=== PATIENT | female | born 1945 | race Caucasian/White ===

== ENCOUNTER 2016-11-24 07:36 | Emergency (ER) | payer MEDICARE, OTHER ==
[~2016-11-24] VITALS: Ht 170.2 cm; Wt 105.7 kg
[~2016-11-24 07:36] MED LIST: BUPR150T7; BUPR150T9 PO; DOXY100C2 PO; FLUT1AER IH; FLUT1DIS26 IH; HYDR-3720 PO; HYDR-3730 PO; LISI-556; LISI5TAB PO; MONT10TA21 PO; OMEP20CA12; OMEP20CA12 PO; OMEP20CA6 PO; PRD20T PO; TIOT18CA IH; UMEC62.5 IH
[2016-11-24] MEDS ORDERED: FAMOTIDINE 20MG/2ML IV (PEPCID) IV STA (07:54)
[2016-11-24] MEDS ORDERED: NS IV 1000 ML 1,000 ML IV STA (07:54)
[2016-11-24 08:00] LABS: BASOPHILS # (AUTO) 0.1 10^3/uL (0.0-0.1); BASOPHILS % (AUTO) 1 % (0-10); EOSINOPHILS # (AUTO) 0.1 10^3/uL (0.0-0.3); EOSINOPHILS % (AUTO) 1 % (0-10); LYMPHOCYTES # (AUTO) 1.8 X 10^3 (1.0-4.0); LYMPHOCYTES % (AUTO) 14 % (12-44); MEAN CORPUSCULAR HEMOGLOBIN 27 PG (25-34); MEAN CORPUSCULAR HGB CONC 32 G/DL (32-36); MEAN CORPUSCULAR VOLUME 83 FL (80-99); MEAN PLATELET VOLUME 10.3 FL (7.4-10.4); MONOCYTES # (AUTO) 0.8 X 10^3 (0.0-1.0); MONOCYTES % (AUTO) 6 % (0-12); NEUTROPHILS % (AUTO) 79 % (42-75); PLATELET COUNT 410 10^3/uL (130-400); RED BLOOD COUNT 5.37 10^6/uL (4.35-5.85); RED CELL DISTRIBUTION WIDTH 14.9 % (10.0-14.5); WHITE BLOOD COUNT 12.7 10^3/uL (4.3-11.0)
[2016-11-24] MEDS ORDERED: ONDANSETRON 4 MG/2 ML (SDV) Z0FRAN IVP ONE (08:00)
[2016-11-24 08:05] LABS: KETONES,URINE NEGATIVE (NEGATIVE); LEUKOCYTE ESTERASE ,URINE 1+ (NEGATIVE); NITRITE,URINE NEGATIVE (NEGATIVE); PH,URINE 6 (5-9); PROTEIN,URINE 2+ (NEGATIVE); UROBILINOGEN,URINE 4 MG/DL (NORMAL)
--- NOTE | 2016-11-24 08:11 | ED GI ---
General Chief Complaint: Abdominal/GI Problems Stated Complaint: VOMITING Source of Information: Patient Exam Limitations: No Limitations History of Present Illness Time Seen By Provider: 07:47 Initial Comments Here with report of nausea and vomiting overnight multiple times. Complains of abdominal cramping prior to vomiting but that resolves. Denies diarrhea or dysuria. Denies blood in her vomit. Denies fever or chills. Timing/Duration: 12 Hours Severity/Quality: Moderate, Cramping Location: Generalized Abdomen Radiation: No Radiation Activities at Onset: None Modifying Factors: Worsens With Eating, Improves With Vomiting Associated Symptoms: No Back Pain, No Chest Pain, No Fever/Chills, Nausea/ VomitingNo Shortness of Air, No Weakness Allergies and Home Medications Allergies Coded Allergies: Penicillins (Unverified Allergy, Unknown, 10/20/16) Home Medications Bupropion HCl 150 Mg Tablet.er 150 MG PO DAILY (Reported) Fluticasone/Vilanterol 1 Each Blst.w.dev 1 PUFF IH DAILY (Reported) Hydrocodone/Acetaminophen 1 Each Tablet #35 1-2 EACH PO Q6H Prescribed by: STEVEN FALCON on 11/05/16 1508 Lisinopril 5 Mg Tablet 5 MG PO DAILY (Reported) Montelukast Sodium 10 Mg Tablet 10 MG PO DAILY (Reported) Omeprazole 20 Mg Capsule.dr 20 MG PO DAILY (Reported) Umeclidinium Farrell 62.5 Mcg Blst.w.dev 1 PUFF IH DAILY (Reported) Review of Systems Constitutional: see HPI EENTM: No Symptoms Reported Respiratory: No Symptoms Reported Cardiovascular: No Symptoms Reported Gastrointestinal: See HPI Abdominal PainDenies Diarrhea, NauseaDenies Rectal Bleeding, Vomiting Genitourinary: No Symptoms Reported Musculoskeletal: no symptoms reported All Other Systems Reviewed Negative Unless Noted: Yes Past Unncfyt-Lulsmq-Tcvxcr Hx Patient Social History Alcohol Use: Denies Use Recreational Drug Use: No Smoking Status: Never a Smoker Type Used: Cigarettes Recent Foreign Travel: No Contact w/Someone Who Travel: No Recent Hopitalizations: No Physical Abuse Screen: No Sexual Abuse: No Immunizations Up To Date Date of Influenza Vaccine: Oct 12, 2016 Seasonal Allergies Seasonal Allergies: Yes Surgeries HX Surgeries: Yes (c/s x3, ) Surgeries: Section, Gallbladder Respiratory Hx Respiratory Disorders: Yes (wears oxygen at night) Respiratory Disorders: Emphysema Cardiovascular Hx Cardiac Disorders: No Neurological Hx Neurological Disorders: No Reproductive System Hx Reproductive Disorders: No Sexually Transmitted Disease: No HIV/AIDS: No Genitourinary Hx Genitourinary Disorders: No Gastrointestinal Hx Gastrointestinal Disorders: Yes Gastrointestinal Disorders: Gastroesophageal Reflux, Gall Bladder Disease Musculoskeletal Hx Musculoskeletal Disorders: Yes (HX FX BACK) Musculoskeletal Disorders: Chronic Back Pain Endocrine Hx Endocrine Disorders: No HEENT HX ENT Disorders: Yes (DENTURES) Loss of Vision: Denies Hearing Impairment: Denies Cancer Hx Cancer: No Psychosocial Hx Psychiatric Problems: No Integumentary HX Skin/Integumentary Disorder: No Blood Transfusions Hx Blood Disorders: No Adverse Reaction to a Blood Tr: No (N/A) Reviewed Nursing Assessment Reviewed/Agree w Nursing PMH: Yes Family Medical History Significant Family History: No Pertinent Family Hx Physical Exam Vital Signs VS - Last 72 Hours, by Label 11/24/16 07:39 Temp 96.2 Pulse 100 Resp 18 B/P 156/94 Pulse Ox 94 O2 Delivery Nasal Cannula O2 Flow Rate 2 Capillary Refill : General Appearance: WD/WN no apparent distress HEENT: PERRL/EOMI pharynx normal Neck: full range of motion supple Respiratory: lungs clear normal breath sounds Cardiovascular: no murmur tachycardia Peripheral Pulses: 2+ Dorsalis Pedis (R), 2+ Left Dors-Pedis (L), 2+ Radial Pulses (R), 2+ Radial Pulses (L) Gastrointestinal: non tender soft Extremities: non-tender normal inspection Back: normal inspection no CVA tenderness no vertebral tenderness Neurologic/Psychiatric: alert oriented x 3 Skin: normal color warm/dry Progress/Results/Core Measures Results/Orders Lab Results Laboratory Tests Test 11/24/16 07:52 11/24/16 07:59 Range/Units Alanine Aminotransferase (ALT/SGPT) 15 0-55 U/L Albumin 4.2 3.2-4.5 G/DL Alkaline Phosphatase 156 H 40-136 U/L Anion Gap 11 5-14 MMOL/L Aspartate Amino Transf (AST/SGOT) 19 5-34 U/L BUN/Creatinine Ratio 16 Basophils # (Auto) 0.1 0.0-0.1 10^3/uL Basophils (%) (Auto) 1 0-10 % Blood Urea Nitrogen 18 7-18 MG/DL Calcium Level 10.0 8.5-10.1 MG/DL Carbon Dioxide Level 28 21-32 MMOL/L Chloride Level 102 98-107 MMOL/L Creatinine 1.11 0.60-1.30 MG/DL Eosinophils # (Auto) 0.1 0.0-0.3 10^3/uL Eosinophils (%) (Auto) 1 0-10 % Estimat Glomerular Filtration Rate 49 Glucose Level 144 H 70-105 MG/DL Hematocrit 45 35-52 % Hemoglobin 14.3 11.5-16.0 G/DL Lymphocytes # (Auto) 1.8 1.0-4.0 X 10^3 Lymphocytes (%) (Auto) 14 12-44 % Magnesium Level 2.3 1.8-2.4 MG/DL Mean Corpuscular Hemoglobin 27 25-34 PG Mean Corpuscular Hemoglobin Concent 32 32-36 G/DL Mean Corpuscular Volume 83 80-99 FL Mean Platelet Volume 10.3 7.4-10.4 FL Monocytes # (Auto) 0.8 0.0-1.0 X 10^3 Monocytes (%) (Auto) 6 0-12 % Neutrophils # (Auto) 10.0 H 1.8-7.8 X 10^3 Neutrophils (%) (Auto) 79 H 42-75 % Platelet Count 410 H 130-400 10^3/uL Potassium Level 4.4 3.6-5.0 MMOL/L Red Blood Count 5.37 4.35-5.85 10^6/uL Red Cell Distribution Width 14.9 H 10.0-14.5 % Sodium Level 141 135-145 MMOL/L Total Bilirubin 0.5 0.1-1.0 MG/DL Total Protein 7.6 6.4-8.2 G/DL White Blood Count 12.7 H 4.3-11.0 10^3/uL Urine Bacteria FEW H /HPF Urine Bilirubin 1+ H NEGATIVE Urine Casts NONE /LPF Urine Clarity CLEAR Urine Color YELLOW Urine Crystals NONE /LPF Urine Culture Indicated NO Urine Glucose (UA) NEGATIVE NEGATIVE Urine Ketones NEGATIVE NEGATIVE Urine Leukocyte Esterase 1+ H NEGATIVE Urine Mucus SMALL H /LPF Urine Nitrite NEGATIVE NEGATIVE Urine Protein 2+ H NEGATIVE Urine RBC NONE /HPF Urine RBC (Auto) NEGATIVE NEGATIVE Urine Specific [place] 1.020 1.016-1.022 Urine Squamous Epithelial Cells 2-5 /HPF Urine Urobilinogen 4 H NORMAL MG/DL Urine WBC 0-2 /HPF Urine pH 6 5-9 My Orders Orders-SATHISH MURPHY MD Cbc With Automated Diff (11/24/16 07:54) Comprehensive Metabolic Panel (11/24/16 07:54) Magnesium (11/24/16 07:54) Ua Culture If Indicated (11/24/16 07:54) Ondansetron Injection (Zofran Injectio (11/24/16 08:00) Ns Iv 1000 Ml (Sodium Chloride 0.9%) (11/24/16 07:54) Famotidine Injection (Pepcid Injection) (11/24/16 07:54) Saline Lock/Iv-Start (11/24/16 07:54) Medications Given in ED Current Medications Medications Dose Ordered Sig/Shawanda Route Start Time Stop Time Status Last Admin Dose Admin Ondansetron HCl 4 mg ONCE ONCE IVP 11/24/16 08:00 11/24/16 08:01 DC 11/24/16 08:04 4 MG Vital Signs/I&O Vital Sign - Last 12Hours 11/24/16 07:39 Temp 96.2 Pulse 100 Resp 18 B/P 156/94 Pulse Ox 94 O2 Delivery Nasal Cannula O2 Flow Rate 2 Progress Note : Progress Note Seen and evaluated. IV, labs, normal saline 1 L bolus, Zofran 4 mg IV and Pepcid 20 mg IV. Monitor patient. 0902: Overall much improved and feels like she can go home safely. We will do outpatient prescription for Zofran. Discharged home with return precautions. Patient verbalize understanding instructions and agreement with plan. Departure Impression Impression: Primary Impression: Nausea and vomiting Qualified Code: R11.14 - Bilious vomiting Disposition: 01 HOME, SELF-CARE Condition: Improved Departure-Patient Inst. Referrals: MIKEY GONZALEZ DO (PCP/Family) Primary Care Physician Patient Instructions: Acute Abdomen (Belly Pain), Adult (DC), Nausea and Vomiting, Adult Add. Discharge Instructions: All discharge instructions reviewed with patient and/or family. Voiced understanding. Clear liquid diet for 24 hours and then advance as tolerated. Take small sips frequently. Follow-up with your DrKaran in 2-3 days for recheck as needed. Return for worse pain, fever, vomiting, blood in your vomit or stool or other concerns as needed. Scripts Ondansetron (Ondansetron Odt)4 Mg Tab.rapdis4 Mg PO Q6H PRN NAUSEA/VOMITING #8 TAB Prov:SATHISH MURPHY MD 11/24/16 SATHISH MURPHY MD Nov 24, 2016 08:10
[2016-11-24 08:19] LABS: ALBUMIN 4.2 G/DL (3.2-4.5); BILIRUBIN,TOTAL 0.5 MG/DL (0.1-1.0); CREATININE SERUM 1.11 MG/DL (0.60-1.30); MAGNESIUM 2.3 MG/DL (1.8-2.4); POTASSIUM 4.4 MMOL/L (3.6-5.0); TOTAL PROTEIN 7.6 G/DL (6.4-8.2)
[2016-11-24 08:35] LABS: BILIRUBIN,URINE 1+ (NEGATIVE); WBC,URINE 0-2 /HPF
[2016-11-24] MEDS ORDERED: ONDA4TAB11 PO (09:07)
[2016-11-24 09:09] VITALS: BP 120/66
== END 2016-11-24 09:09 | disposition home or self-care (01) ==
LOC: EDUNIT# 07:36 → ER 07:38
DX: R11.2 Nausea with vomiting, unspecified (principal)
CPT/HCPCS: 36415; 80053; 81000; 83735; 85025; 96361; 96374; 96375

== ENCOUNTER → 2017-04-15 | Outpatient (CLI) | payer MEDICARE, OTHER ==
[~2017-04-15] MED LIST changes: +ONDA4TAB11 PO
--- NOTE | 2017-04-15 15:53 | Diagnostic Imaging Report ---
PROCEDURE: CT chest without contrast. TECHNIQUE: Multiple contiguous axial images were obtained through the chest without the use of intravenous contrast. INDICATION: COPD. Dyspnea. COMPARISON: 10/28/16. FINDINGS: There are upper lobe predominant emphysema changes. There is mild atelectasis in the anterior aspect of the left upper lobe and in the lingula. There is minimal scarring also seen in the left lung base. No significant consolidation or mass is seen. No mediastinal mass. No pleural or pericardial effusion. No axillary lymphadenopathy or mediastinal lymphadenopathy seen. The previously seen minimally prominent hilar lymph nodes are not clearly identified on this unenhanced exam with no significantly enlarged hilar mass identified. The thoracic aorta is normal in caliber. The cardiac size is normal. Stable 2.6 cm subcutaneous low-attenuation lesion appears to be based on the skin in the upper right back, probably a sebaceous cyst. Sections in the upper abdomen demonstrate cholecystectomy clips. There is a zavvt-vu-uanhlcod hiatal hernia. The osseous structures demonstrate mild scoliotic curvature in the upper thoracic spine. IMPRESSION: 1. Mild subsegmental atelectasis in the left upper lobe and lingula. 2. Emphysema. 3. Jndam-fv-tihfrygh hiatal hernia. Dictated by: Dictated on workstation # [id number]
== END ==
LOC: RAD 13:15
PROVIDERS: ATTEND Internal Medicine Critical Care Medicine
DX: J44.9 Chronic obstructive pulmonary disease, unspecified (principal); G47.34 Idiopathic sleep related nonobstructive alveolar hypoventilation; G47.33 Obstructive sleep apnea (adult) (pediatric); R06.02 Shortness of breath
CPT/HCPCS: 71250

== ENCOUNTER → 2018-04-20 | Outpatient (CLI) | payer MEDICARE, OTHER ==
--- NOTE | 2018-04-20 12:43 | Diagnostic Imaging Report ---
Indication: A 07-bfog-jtao history smoking cessation 5 years ago. Patient presents for annual low-dose CT screening. Study compared 04/15/2017. Low-dose nonenhanced CT screening chest performed. Some curvilinear zones of scarring in the lingular segment of the left upper lobe is an unchanged finding. Some very mild peripheral subpleural cysts in the right greater the left lower lobes posteriorly. No pulmonary nodule or suspicious lung mass. Hiatal hernia chronic. No evidence for adenopathy. No thoracic effusion or acute chest wall pathology. Incidental sebaceous cyst right paramedian upper back chronic. Impression: Stable benign findings with annual CT low-dose followup recommended, no suspicious feature. L. Rads category 1 Dictated by: Dictated on workstation # [id number]
== END ==
LOC: RAD 09:45
PROVIDERS: ATTEND Nurse Practitioner Family
DX: Z12.2 Encounter for screening for malignant neoplasm of respiratory organs (principal); Z87.891 Personal history of nicotine dependence

== ENCOUNTER → 2019-04-11 | Outpatient (CLI) | payer MEDICARE, OTHER ==
--- NOTE | 2019-04-11 12:26 | Diagnostic Imaging Report ---
PROCEDURE: MRI right joint lower extremity without contrast. TECHNIQUE: Multiplanar, multisequence non contrast-enhanced MRI of the right lower extremity was accomplished. INDICATION: Right knee pain and instability, mostly medial. COMPARISON: None. FINDINGS: There is moderate bone marrow edema at the medial femoral condyle. Small linear subchondral hypointensity at the medial femoral condyle may represent an insufficiency fracture. No articular surface collapse is seen. There is a moderate right knee joint effusion. The articular cartilage in the patellofemoral compartment demonstrates mild thinning and marked heterogeneity with surface irregularity. The articular cartilage in the medial compartment demonstrates ifeozurv-dr-eytfcz thinning with high-grade cartilage loss, particularly at the medial femoral condyle. The lateral compartment demonstrates mild thinning and surface irregularity with no large full-thickness defect seen. There is a mildly complex somewhat horizontal tear of the medial meniscus at the posterior horn extending into the body. The lateral meniscus demonstrates increased signal, without discrete tear seen. The anterior and posterior cruciate ligaments are intact. The medial collateral ligament appears intact. The lateral collateral ligamentous complex is intact. The extensor mechanism is intact. The medial and lateral retinacula appear intact. The soft tissues about the right knee are otherwise unremarkable. IMPRESSION: 1. Moderate bone marrow edema in the right medial femoral condyle with suspected small subchondral insufficiency fracture. No significant cortical depression is seen. 2. Tearing of the medial meniscus. 3. Moderate right knee joint effusion. 4. Moderate tricompartmental cartilage loss, most pronounced in the medial compartment. Dictated by: Dictated on workstation # [id number]
== END ==
LOC: RAD 09:06
PROVIDERS: ATTEND Nurse Practitioner Community Health
DX: M23.203 Derangement of unspecified medial meniscus due to old tear or injury, right knee (principal); M94.8X8 Other specified disorders of cartilage, other site
CPT/HCPCS: 73721

== ENCOUNTER → 2019-04-25 | Outpatient (CLI) | payer MEDICARE, OTHER ==
--- NOTE | 2019-04-25 21:03 | Diagnostic Imaging Report ---
EXAMINATION: CT low-dose lung cancer screening. INDICATION: 52 year pack smoking history. FINDINGS: Routine images of the thorax were obtained using the CT low-dose lung cancer screening protocol. In the prior exam of 04/20/2018 failed to show any sign of a parenchymal lung mass. On this study, there is still no evidence for a discrete lung mass. The chronic pulmonary changes involving both lungs and the emphysematous changes seen previously are again evident and do not seem to have progressed. There is no sign of failure, pneumonia or pleural effusion to indicate an acute abnormality. The heart is enlarged but stable when compared to the prior exam. Coronary artery calcifications are again noted. Aorta is not abnormally dilated. There is no obvious mediastinal or hilar adenopathy. Thyroid gland was not well visualized. There is no evidence for a breast mass. The sections through the upper abdomen again show the large hiatal hernia. The bone windows are unremarkable for a fracture or for destructive lesion. IMPRESSION: 1. There is still no evidence for parenchymal lung mass. A followup low-dose lung cancer screening exam in one year would be recommended for continued evaluation. 2. There is coronary artery disease and chronic pulmonary disease. There is no sign of an acute abnormality, however. 3. The large hiatal hernia seen previously is again evident. 1A - Negative. No lung nodules. Continue annual screening with LDCT in 12 months. Dictated by: Dictated on workstation # [id number]
== END ==
LOC: RAD 10:50
PROVIDERS: ATTEND Nurse Practitioner Family
DX: Z12.2 Encounter for screening for malignant neoplasm of respiratory organs (principal); J44.9 Chronic obstructive pulmonary disease, unspecified; I25.10 Atherosclerotic heart disease of native coronary artery without angina pectoris; K44.9 Diaphragmatic hernia without obstruction or gangrene; Z87.891 Personal history of nicotine dependence

== ENCOUNTER 2019-05-30 11:16 | Outpatient (CLI) | payer MEDICARE ==
[~2019-05-30] VITALS: Ht 170.2 cm; Wt 119.3 kg
[2019-05-30] MEDS ORDERED: RT-ALBUINH IH (11:43)
[2019-05-30] MEDS ORDERED: HYDR-3812 PO (11:44)
[2019-05-30 11:48] VITALS: BP 122/76
== END 2019-05-30 12:50 | disposition home or self-care (01) ==
LOC: PREOP 11:16
PROVIDERS: ATTEND Orthopaedic Surgery
DX: Z01.818 Encounter for other preprocedural examination (principal)
CPT/HCPCS: 87081

== ENCOUNTER 2019-06-07 06:32 | Day surgery (SDC) | payer MEDICARE ==
--- NOTE | 2019-05-22 17:01 | HISTORY AND PHYSICAL ---
DATE OF SERVICE: ADMISSION HISTORY AND PHYSICAL DATE OF ADMISSION: 06/07/2019. This will be for outpatient surgery on 06/07/2019, for right knee arthroscopy. HISTORY OF PRESENT ILLNESS: The patient is a 74-year-old female with complaints of right medial knee pain, catching, locking and swelling. She reports that this has been ongoing for greater than 2 months and has become activity limiting. She underwent an MRI, which shows a complex tear of the medial meniscus. In addition, she has tricompartmental chondral changes with moderate medial compartment joint space narrowing. Due to functional impairment and mechanical symptoms, the patient has elected to proceed with surgical intervention. She understands this will not alleviate her arthritic symptoms. REVIEW OF SYSTEMS: No chest pain, no shortness of breath. No dysuria. PAST MEDICAL HISTORY: Emphysema, COPD, heartburn, sleep apnea. PAST SURGICAL HISTORY: section. FAMILY HISTORY: Significant for emphysema. PRIMARY CARE PROVIDER: [facility]. MEDICATIONS: Ventolin, Atrovent, albuterol, omeprazole, Singulair, Breo Ellipta, Spiriva, Wellbutrin, omeprazole and lisinopril. ALLERGIES: 1. PENICILLIN. 2. ADVAIR. SOCIAL HISTORY: The patient denies alcohol use. She is a former smoker. PHYSICAL EXAMINATION: GENERAL: The patient is a well-developed, well-nourished, in no acute distress. HEENT: Normocephalic, atraumatic. Pupils are equal, round and reactive to light. Oropharynx is clear. NECK: Supple, no lymphadenopathy. LUNGS: Clear to auscultation bilaterally. HEART: Regular rate and rhythm. ABDOMEN: Soft, nontender, nondistended. EXTREMITIES: The right knee demonstrates a moderate effusion. She is tender along the medial joint line. She has pain medially with Dafne's. Range of motion is 0/0/125. Negative Oscar, negative anterior and posterior drawer and no varus valgus laxity. The patient ambulates with an antalgic gait. She does have patellofemoral crepitus noted. IMPRESSION: Right knee medial meniscus tear with associated chondromalacia. PLAN: Right knee arthroscopy with partial medial meniscectomy and chondroplasty. Risks, benefits, options, ramifications and recovery have been discussed at length with the patient. She understands and wishes to proceed. Job ID: [id number] DocumentID: [id number] Dictated Date: 05/20/2019 14:07:12 Box Sealing Inspector Date: 05/20/2019 15:38:04 Dictated By: MARILEE EDWARD MD
[2019-06-07] VITALS (11 sets, daily range): BP systolic 109–140; BP diastolic 62–92
[~2019-06-07] VITALS: Ht 170.2 cm; Wt 119.0 kg
[~2019-06-07 06:32] MED LIST changes: +HYDR-3812 PO; -OMEP20CA12; -OMEP20CA12 PO; +OMEP20CA13; +OMEP20CA13 PO; +RT-ALBUINH IH
[2019-06-07] MEDS ORDERED: FAMOTIDINE 20MG/2ML IV (PEPCID) ONE (06:58)
[2019-06-07] MEDS ORDERED: ONDANSETRON 4 MG/2 ML (SDV) Z0FRAN ONE ×3 (06:58→09:56)
[2019-06-07] MEDS ORDERED: CLINDAMYCIN 600 MG/50 ML IVPB 50 ML IV ONE ×2 (06:58→07:00)
[2019-06-07] MEDS ORDERED: SEVOFLURANE (ULTANE) 15 ML INHAL SOLN ONE (07:06)
[2019-06-07] MEDS ORDERED: DEXAMETHASONE 10 MG/ML (DECADRON) 1 ML VIAL ONE (07:06)
[2019-06-07] MEDS ORDERED: proPOfol 200 MG/20 ML (DIPRIVAN) VIAL IV ONE (07:06)
[2019-06-07] MEDS ORDERED: LIDOCAINE PF 2% 5 ML (XYLOCAINE) VIAL ONE (07:06)
[2019-06-07] MEDS ORDERED: fentaNYL INJECTION 100 MCG/2 ML AMP ONE (07:07)
[2019-06-07] MEDS ORDERED: morphine PF (DURAMORPH) 10 MG/10 ML AMP ONE (07:08)
[2019-06-07] MEDS ORDERED: BUPIVACAINE 0.25% 30 ML (SENSORCAINE) VIAL ONE (07:08)
[2019-06-07] MEDS: LACTATED RINGERS 1,000 ML IV PRN ×2 (07:13→09:15)
[2019-06-07] MEDS ORDERED: FAMOTIDINE 20MG/2ML IV (PEPCID) IV ONE (07:15)
[2019-06-07] MEDS ORDERED: ONDANSETRON 4 MG/2 ML (SDV) Z0FRAN IV ONE (07:15)
[2019-06-07] MEDS ORDERED: HYDROcodone/APAP 7.5 MG/325 MG (LORTAB, LORCET PLUS) TABLET PO PRN (07:30)
--- OUTSIDE RECORDS SUMMARY | 2019-06-07 07:33 | XMS REPORT ---
Author Author Migration, Doctor Organization [facility] Address Unknown Phone Unavailable Care Team Providers Care Bank Vault Custodian Name Role Phone Migration, Doctor Unavailable Unavailable PROBLEMS Type Condition ICD9-CM Code HNJ50-LR Code Onset Dates Condition Status SNOMED Code Problem Mammogram declined Z53.20 Active 05507886827787635 Problem Tobacco abuse Z72.0 Active 89261171 Problem BMI 40.0-44.9, adult Z68.41 Active 089372101 Problem Essential hypertension I10 Active 05153226 Problem Shoulder fracture, right S42.91XA Active 62939257 Problem S/P cholecystectomy Z90.49 Active 725520357 Problem Chronic obstructive pulmonary disease, unspecified J44.9 Active 03909950 Problem Other chronic pain G89.29 Active [id number] ALLERGIES No Information ENCOUNTERS Encounter Location Date Diagnosis [facility] [id number] [place] [address] March, Right medial knee pain M25.561 ; Pain in thoracic spine M54.6 and Morbid obesity E66.01 [facility] [id number] [place] [address] March, Acute pain of right knee M25.561 and Morbid obesity E66.01 [facility] [id number] [place] [address] Feb, [facility] [id number] [place] [address] Feb, Pain in thoracic spine M54.6 [facility] [id number] [place] [address] Jan, [facility] [id number] [place] [address] Jan, Pain in thoracic spine M54.6 [facility] [id number] [place] [address] Dec, Pain in thoracic spine M54.6 [facility] [id number] [place] [address] Dec, Chronic obstructive pulmonary disease, unspecified J44.9 ; Other chronic pain G89.29 and BMI 40.0-44.9, adult Z68.41 [facility] [id number] [place] [address] Dec, [facility] [id number] [place] [address] Nov, Pain in thoracic spine M54.6 [facility] [id number] [place] [address] Nov, [facility] [id number] [place] [address] Nov, Pain in thoracic spine M54.6 [facility] [id number] [place] [address] Oct, [facility] [id number] [place] [address] Oct, [facility] [id number] [place] [address] Oct, Pain in thoracic spine M54.6 [facility] [id number] [place] [address] Sep, Pain in thoracic spine M54.6 ; BMI 40.0-44.9, adult Z68.41 and History of tobacco use Z87.891 [facility] [id number] [place] [address] 15 Sep, 2018 [facility] [id number] [place] [address] 09 Sep, 2018 Pain in thoracic spine M54.6 [facility] [id number] [place] [address] Sep, [facility] [id number] [place] [address] Aug, Chronic obstructive pulmonary disease, unspecified J44.9 [facility] [id number] [place] [address] Aug, [facility] [id number] [place] [address] Aug, Pain in thoracic spine M54.6 [facility] [id number] [place] [address] Aug, Encounter for immunization Z23 [facility] [id number] [place] [address] Jul, Pain in thoracic spine M54.6 [facility] [id number] [place] [address] Jun, [facility] [id number] [place] [address] Jun, Therapeutic drug monitoring Z51.81 ; Pain in thoracic spine M54.6 and BMI 40.0-44.9, adult Z68.41 [facility] [id number] [place] [address] Jun, [facility] [id number] [place] [address] Jun, Pain in thoracic spine M54.6 [facility] [id number] [place] [address] May, Pain in thoracic spine M54.6 [facility] [id number] [place] [address] May, [facility] [id number] [place] [address] Apr, [facility] [id number] [place] [address] Apr, Pain in thoracic spine M54.6 [facility] [id number] [place] [address] Apr, [facility] [id number] [place] [address] Apr, Medicare annual wellness visit, initial Z00.00 ; BMI 40.0-44.9, adult Z68.41 ; Chronic obstructive pulmonary disease, unspecified J44.9 ; Other chronic pain G89.29 and Essential hypertension I10 [facility] [id number] [place] [address] March, Pain in thoracic spine M54.6 [place] [id number] [place] [address] Feb, Pain in thoracic spine M54.6 [place] [address] [address] Feb, Pain in thoracic spine M54.6 ; Other chronic pain G89.29 ; Chronic obstructive pulmonary disease, unspecified J44.9 and Periumbilical hernia K42.9 [place] [id number] [place] [address] Jan, Pain in thoracic spine M54.6 [facility] [id number] [place] [address] Jan, Chronic obstructive pulmonary disease, unspecified J44.9 ; Encounter for immunization Z23 ; Screening, lipid Z13.220 ; Renal insufficiency N28.9 ; Pain in thoracic spine M54.6 and Other chronic pain G89.29 [facility] [id number] [place] [address] Sep, Irritation of right eye H57.8 [facility] [id number] [place] [address] May, Chronic obstructive pulmonary disease, unspecified COPD type J44.9 [facility] [id number] [place] [address] March, [facility] [address] [address] Oct, Medicare annual wellness visit, subsequent Z00.00 ; Encounter for immunization Z23 and S/P cholecystectomy Z90.49 [place] [address] [address] Oct, [place] [address] [address] Sep, [facility] [address] [address] Aug, Wheezing R06.2 and Community acquired pneumonia J18.9 [place] [address] [address] March, Shoulder fracture, right, with routine healing, subsequent encounter S42.91XD [place] [address] [address] Feb, Shoulder fracture, right S42.91XA [place] [address] [address] Feb, Shoulder pain M25.519 [facility] [address] [address] Feb, [facility] [address] [address] Feb, Right shoulder pain M25.511 [place] [address] [address] Feb, [place] [address] [address] 15 Jan, 2016 Renal insufficiency N28.9 [place] [id number] [place] [address] Dec, [place] [id number] [place] [address] 16 Dec, 2015 Bronchitis J40 [facility] [address] [address] Dec, [facility] [address] [address] Dec, [facility] [address] [address] Nov, [facility] [address] [address] Oct, Renal insufficiency N28.9 [facility] [address] [address] 11 Oct, 2015 Screening, lipid Z13.220 [place] [address] [address] 10 Oct, 2015 Chronic obstructive pulmonary disease, unspecified COPD type J44.9 ; Gastroesophageal reflux disease, esophagitis presence not specified K21.9 ; Dysthymia F34.1 and Screening, lipid Z13.220 [facility] [address] [address] Jun, [facility] [address] [address] Jun, Sleep apnea 780.57 and COPD (chronic obstructive pulmonary disease) 496 [facility] [id number] [place] [address] Apr, COPD (chronic obstructive pulmonary disease) 496 [facility] [address] [address] Feb, [facility] [address] [address] Feb, [facility] [address] [address] Nov, [facility] [place] [facility] [address] [id number] [place] [address] Nov, [facility] [place] [facility] [address] [id number] [place] [address] Nov, [facility] [place] [facility] [address] [id number] [place] [address] Nov, [facility] [place] [facility] [address] [id number] [place] [address] Oct, [facility] [place] [facility] [address] [id number] [place] [address] Oct, [facility] [place] [facility] [address] [id number] [place] [address] Oct, [facility] [place] [facility] [address] [id number] [place] [address] Oct, [facility] [place] [facility] [address] [id number] [place] [address] Oct, [facility] [place] [facility] [address] [id number] [place] [address] Oct, [facility] [place] [facility] [address] [id number] [place] [address] Oct, [facility] [place] [facility] [address] [id number] [place] [address] Oct, [facility] [place] [facility] [address] [id number] [place] [address] March, [facility] [place] [facility] [address] [id number] [place] [address] March, [facility] [place] [facility] [address] [id number] [place] [address] March, [facility] [place] [facility] [address] [id number] [place] [address] March, [facility] [place] [facility] [address] [id number] [place] [address] Feb, [facility] [place] [facility] [address] [id number] [place] [address] Feb, [facility] [place] [facility] [address] [id number] [place] [address] Feb, [facility] [place] [facility] [address] [id number] [place] [address] Feb, [facility] [place] [facility] [address] [id number] [place] [address] Feb, [facility] [place] [facility] [address] [id number] [place] [address] Feb, [facility] [place] [facility] [address] [id number] [place] [address] Jan, [facility] [place] [facility] [address] [id number] [place] [address] Jan, [facility] [place] [facility] [address] [id number] [place] [address] Nov, [facility] [place] [facility] [address] [id number] [place] [address] Nov, [facility] [place] [facility] [address] [id number] [place] [address] Nov, [facility] [place] [facility] [address] [id number], [place] [address] Aug, [facility] [place] [facility] [address] [id number], [place] [address] Aug, [facility] [place] [facility] [address] [id number] [place] [address] Aug, [facility] [place] [facility] [address] [id number] [place] [address] Jun, [facility] [place] [facility] [address] [id number] [place] [address] Jun, [facility] [place] [facility] [address] [id number] [place] [address] Apr, [facility] [address] [id number] [place] [address] Apr, [facility] [address] [id number] [place] [address] March, [facility] [address] [id number] [place] [address] Feb, [facility] [address] [id number] [place] [address] Feb, [facility] [address] [id number] [place] [address] Jan, [facility] [address] [id number] [place] [address] Dec, [facility] [address] [id number] [place] [address] Dec, [facility] [address] [id number] [place] [address] Dec, [facility] [address] [id number] [place] [address] Nov, [facility] [address] [id number] [place] [address] Nov, [facility] [address] [id number] [place] [address] Nov, [facility] [address] [id number] [place] [address] Oct, [facility] [place] [facility] [address] [id number] [place] [address] Oct, [facility] [place] [facility] [address] [id number] [place] [address] Sep, [facility] [address] [id number] [place] [address] Sep, [facility] [place] [facility] [address] [id number] [place] [address] Aug, [facility] [place] [facility] [address] [id number] [place] [address] Jul, [facility] [place] [facility] [address] [id number] [place] [address] May, [facility] [place] [facility] [address] [id number] [place] [address] May, [facility] [place] [facility] [address] [id number] [place] [address] March, [facility] [place] [facility] [address] [id number] [place] [address] Nov, [facility] [place] [facility] [address] [id number] [place] [address] Oct, [facility] [place] [facility] [address] [id number] [place] [address] Sep, [facility] [place] [facility] [address] [id number] [place] [address] Sep, [facility] [place] [facility] [address] [id number] [place] [address] Sep, [facility] [place] [facility] [address] [id number] [place] [address] Aug, [facility] [place] [facility] [address] [id number], [place] [address] Aug, [facility] [place] [facility] [address] [id number] [place] [address] Oct, [facility] [place] [facility] [address] [id number] [place] [address] Oct, [facility] [place] [facility] [address] [id number], [place] [address] Oct, [facility] [place] [facility] [address] [id number], [place] [address] Aug, [facility] [address] [id number] [address] Aug, [facility] [address] [id number] [address] Aug, [facility] [address] [id number] [address] Oct, [facility] [address] [id number] [address] Sep, [facility] [address] [id number], [place] [address] Sep, [facility] [address] [id number] [address] Jul, IMMUNIZATIONS No Known Immunizations SOCIAL HISTORY Never Assessed REASON FOR VISIT EMR-[facility] [place] PLAN OF CARE VITAL SIGNS MEDICATIONS No Known Medications RESULTS No Results PROCEDURES No Known procedures INSTRUCTIONS MEDICATIONS ADMINISTERED No Known Medications MEDICAL (GENERAL) HISTORY Type Description Date Medical History sleep apnea Medical History emphysema Medical History heartburn Medical History broken back in two place Medical History broken right shoulder Surgical History x 3 Surgical History gallbladder Hospitalization History surgery
--- OUTSIDE RECORDS SUMMARY | 2019-06-07 07:33 | XMS REPORT ---
Author Author PATRICIA JARAMILLO Organization [facility] Address [address] [place] [address] Care Team Providers Care Project Development Coordinator Name Role Phone PATRICIA JARAMILLO Unavailable PROBLEMS Type Condition ICD9-CM Code OYS08-TG Code Onset Dates Condition Status SNOMED Code Problem Mammogram declined Z53.20 Active 83235316942595228 Problem Tobacco abuse Z72.0 Active 58907596 Problem BMI 40.0-44.9, adult Z68.41 Active 947036939 Problem Essential hypertension I10 Active 20318149 Problem Shoulder fracture, right S42.91XA Active 76579433 Problem S/P cholecystectomy Z90.49 Active 114429942 Problem Chronic obstructive pulmonary disease, unspecified J44.9 Active 91099732 Problem Other chronic pain G89.29 Active 27970007 ALLERGIES No Information ENCOUNTERS Encounter Location Date Diagnosis [place] [id number] [place] [address] Jun, [place] [id number] [place] [address] May, Pain in thoracic spine M54.6 [place] [id number] [place] [address] Apr, Pain in thoracic spine M54.6 [place] [id number] [place] [address] Apr, Acute pain of right knee M25.561 [place] [id number] [place] [address] March, Pain in thoracic spine M54.6 [place] [id number] [place] [address] March, Right medial knee pain M25.561 ; Pain in thoracic spine M54.6 and Morbid obesity E66.[address] [facility] [id number] [place] [address] March, Acute pain of right knee M25.561 and Morbid obesity E66.01 [facility] [id number] [place] [address] Feb, [facility] [id number] [place] [address] Feb, Pain in thoracic spine M54.6 [facility] [id number] [place] [address] Jan, [facility] [id number] [place] [address] Jan, Pain in thoracic spine M54.6 [facility] [id number] [place] [address] Dec, Pain in thoracic spine M54.6 [facility] [id number] [place] [address] Dec, Chronic obstructive pulmonary disease, unspecified J44.9 ; Other chronic pain G89.29 and BMI 40.0-44.9, adult Z68.41 [facility] [id number] [place] [address] Dec, [facility] [id number] [place] [address] Nov, Pain in thoracic spine M54.6 [facility] [id number] [place] [address] Nov, [facility] [id number] [place] [address] Nov, Pain in thoracic spine M54.6 [facility] [id number] [place] [address] Oct, [facility] [id number] [place] [address] Oct, [facility] [id number] [place] [address] Oct, Pain in thoracic spine M54.6 [facility] [id number] [place] [address] Sep, Pain in thoracic spine M54.6 ; BMI 40.0-44.9, adult Z68.41 and History of tobacco use Z87.891 [facility] [id number] [place] [address] Sep, [facility] [id number] [place] [address] Sep, Pain in thoracic spine M54.6 [facility] [id number] [place] [address] Sep, [facility] [id number] [place] [address] Aug, Chronic obstructive pulmonary disease, unspecified J44.9 [facility] [id number] [place] [address] Aug, [facility] [id number] [place] [address] Aug, Pain in thoracic spine M54.6 [facility] [id number] [place] [address] Aug, Encounter for immunization Z23 [facility] [id number] [place] [address] Jul, Pain in thoracic spine M54.6 [facility] [id number] [place] [address] Jun, [facility] [id number] [place] [address] Jun, Therapeutic drug monitoring Z51.81 ; Pain in thoracic spine M54.6 and BMI 40.0-44.9, adult Z68.41 [facility] [id number] [address] Jun, [facility] [id number] [address] Jun, Pain in thoracic spine M54.6 [facility] [id number] [address] May, Pain in thoracic spine M54.6 [facility] [address] [facility] [id number] [address] May, [facility] [address] [facility] [id number] [place] [address] Apr, [facility] [id number] [place] [address] Apr, Pain in thoracic spine M54.6 [facility] [id number] [address] Apr, [facility] [id number] [address] Apr, Medicare annual wellness visit, initial Z00.00 ; BMI 40.0-44.9, adult Z68.41 ; Chronic obstructive pulmonary disease, unspecified J44.9 ; Other chronic pain G89.29 and Essential hypertension I10 [facility] [address] [address] March, Pain in thoracic spine M54.6 [facility] [id number] [address] Feb, Pain in thoracic spine M54.6 [facility] [id number] [address] Feb, Pain in thoracic spine M54.6 ; Other chronic pain G89.29 ; Chronic obstructive pulmonary disease, unspecified J44.9 and Periumbilical hernia K42.9 [place] [address] [address] Jan, Pain in thoracic spine M54.6 [place] [address] [address] Jan, Chronic obstructive pulmonary disease, unspecified J44.9 ; Encounter for immunization Z23 ; Screening, lipid Z13.220 ; Renal insufficiency N28.9 ; Pain in thoracic spine M54.6 and Other chronic pain G89.[address] [facility] [address] [address] Sep, Irritation of right eye H57.8 [place] [address] [address] May, Chronic obstructive pulmonary disease, unspecified COPD type J44.[address] [address] March, [place] [address] [address] Oct, Medicare annual wellness visit, subsequent Z00.00 ; Encounter for immunization Z23 and S/P cholecystectomy Z90.49 [place] [address] [address] Oct, [address] [address] Sep, [facility] [address] [address] Aug, Wheezing R06.2 and Community acquired pneumonia J18.[address] [address] March, Shoulder fracture, right, with routine healing, subsequent encounter S42.91XD [address] [address] Feb, Shoulder fracture, right S42.91XA [facility] [id number] [place] [address] Feb, Shoulder pain M25.519 [facility] [address] [address] Feb, [facility] [id number] [place] [address] Feb, Right shoulder pain M25.511 [facility] [address] [address] 08 Feb, 2016 [facility] [address] [address] Jan, Renal insufficiency N28.9 [facility] [address] [address] Dec, [facility] [address] [address] Dec, Bronchitis J40 [facility] [id number] [place] [address] Dec, [facility] [id number] [place] [address] Dec, [facility] [id number] [place] [address] Nov, [facility] [id number] [place] [address] Oct, Renal insufficiency N28.9 [facility] [id number] [place] [address] Oct, Screening, lipid Z13.220 [facility] [id number] [place] [address] Oct, Chronic obstructive pulmonary disease, unspecified COPD type J44.9 ; Gastroesophageal reflux disease, esophagitis presence not specified K21.9 ; Dysthymia F34.1 and Screening, lipid Z13.220 [facility] [address] [place] [address] Jun, [facility] [address] [place] [address] Jun, Sleep apnea 780.57 and COPD (chronic obstructive pulmonary disease) 496 [facility] [address] [place] [address] Apr, COPD (chronic obstructive pulmonary disease) 496 [facility] [id number] [place] [address] Feb, [facility] [id number] [place] [address], [place] [address] Feb, [facility] [address] [place] [address] Nov, [facility] [id number] [place] [address] Nov, [facility] [address] [place] [address] Nov, [facility] [address] [place] [address] Nov, [facility] [address] [place] [address] Oct, [facility] [address] [place] [address] Oct, [facility] [address] [place] [address] Oct, [facility] [id number] [place] [address] Oct, [facility] [id number] [place] [address] Oct, [facility] [id number] [place] [address] Oct, [facility] [place] [facility] [address] [id number] [place] [address] Oct, [facility] [place] [facility] [address] [id number] [place] [address] Oct, [facility] [place] [facility] [address] [id number] [place] [address] March, [facility] [place] [facility] [address] [id number] [place] [address] March, [facility] [place] [facility] [address] [id number] [place] [address] March, [facility] [place] [facility] [address] [id number] [place] [address] March, [facility] [place] [facility] [address] [id number] [place] [address] Feb, [facility] [place] [facility] [address] [id number] [place] [address] Feb, [facility] [place] [facility] [address] [id number] [place] [address] Feb, [facility] [place] [facility] [address] [id number] [place] [address] Feb, [facility] [place] [facility] [address] [id number] [place] [address] Feb, [facility] [place] [facility] [address] [id number] [address] Feb, [facility] [place] [facility] [address] [id number] [place] [address] Jan, [facility] [place] [facility] [address] [id number] [place] [address] Jan, [facility] [place] [facility] [address] [id number] [place] [address] Nov, [facility] [place] [facility] [address] [id number] [place] [address] 16 Nov, 2013 [facility] [address] [id number] [place] [address] Nov, [facility] [address] [id number] [place] [address] Aug, [facility] [address] [id number] [place] [address] Aug, [facility] [place] [facility] [address] [id number] [place] [address] Aug, [facility] [address] [id number] [place] [address] Jun, [facility] [place] [facility] [address] [id number] [place] [address] Jun, [facility] [address] [id number] [place] [address] Apr, [facility] [address] [id number] [place] [address] Apr, [facility] [address] [id number] [place] [address] March, [facility] [address] [id number] [place] [address] Feb, [facility] [place] [facility] [address] [id number] [place] [address] Feb, [facility] [place] [facility] [address] [id number] [place] [address] Jan, [facility] [place] [facility] [address] [id number] [place] [address] Dec, [facility] [place] [facility] [address] [id number] [place] [address] Dec, [facility] [place] [facility] [address] [id number] [place] [address] Dec, [facility] [place] [facility] [address] [id number] [place] [address] Nov, [facility] [place] [facility] [address] [id number] [place] [address] Nov, [facility] [place] [facility] [address] [id number] [place] [address] Nov, [facility] [place] [facility] [address] [id number] [place] [address] Oct, [facility] [address] [id number] [place] [address] Oct, [facility] [place] [facility] [address] [id number] [place] [address] Sep, [facility] [place] [facility] [address] [id number] [place] [address] Sep, [facility] [address] [id number] [place] [address] Aug, [facility] [place] [facility] [address] [id number] [place] [address] Jul, [facility] [place] [facility] [address] [id number] [place] [address] May, [facility] [place] [facility] [address] [id number] [place] [address] May, [facility] [place] [facility] [address] [id number] [place] [address] March, [facility] [place] [facility] [address] [id number] [place] [address] Nov, [facility] [place] [facility] [address] [id number] [place] [address] Oct, [facility] [place] [facility] [address] [id number] [place] [address] Sep, [facility] [place] [facility] [address] [id number] [address] 10 Sep, 2011 [facility] [address] [address] Sep, [facility] [address] [address] Aug, [facility] [address] [address] Aug, [facility] [address] [address] Oct, [facility] [address] [address] Oct, [facility] [id number] [place] [address] Oct, [facility] [id number] [place] [address] Aug, [facility] [address] [address] 14 Aug, 2010 [facility] [address] [address] Aug, [facility] [address] [address] Oct, [facility] [address] [address] Sep, [facility] [address] [address] Sep, [facility] [address] [address] 16 Jul, 2009 IMMUNIZATIONS No Known Immunizations SOCIAL HISTORY Never Assessed REASON FOR VISIT PLAN OF CARE VITAL SIGNS MEDICATIONS Unknown Medications RESULTS No Results PROCEDURES No Known procedures INSTRUCTIONS MEDICATIONS ADMINISTERED No Known Medications MEDICAL (GENERAL) HISTORY Type Description Date Medical History sleep apnea Medical History emphysema Medical History heartburn Medical History broken back in two place Medical History broken right shoulder Surgical History x 3 Surgical History gallbladder Dec/2016 Hospitalization History surgery
--- OUTSIDE RECORDS SUMMARY | 2019-06-07 07:33 | XMS REPORT ---
Author Author Migration, Doctor Organization [facility] Address Unknown Phone Unavailable Care Team Providers Care Insole Beveler Name Role Phone Migration, Doctor Unavailable Unavailable PROBLEMS Type Condition ICD9-CM Code VKW12-BS Code Onset Dates Condition Status SNOMED Code Problem Mammogram declined Z53.20 Active 27357877962317458 Problem Tobacco abuse Z72.0 Active 29208444 Problem BMI 40.0-44.9, adult Z68.41 Active 536314036 Problem Essential hypertension I10 Active 41338428 Problem Shoulder fracture, right S42.91XA Active 21193840 Problem S/P cholecystectomy Z90.49 Active 096222073 Problem Chronic obstructive pulmonary disease, unspecified J44.9 Active 96259189 Problem Other chronic pain G89.29 Active 70961519 ALLERGIES No Information ENCOUNTERS Encounter Location Date Diagnosis [place] [address] [address] Jan, [place] [address] [address] Jan, Pain in thoracic spine M54.6 [place] [address] [address] Dec, Pain in thoracic spine M54.6 [place] [address] [address] Dec, Chronic obstructive pulmonary disease, unspecified J44.9 ; Other chronic pain G89.29 and BMI 40.0-44.9, adult Z68.41 [place] [address] [address] Dec, [place] [address] [address] Nov, Pain in thoracic spine M54.6 [place] [address] [id number] [address] Nov, [facility] [address] [place] [id number] [place] [address] Nov, Pain in thoracic spine M54.6 [facility] [address] [place] [id number] [place] [address] Oct, [facility] [address] [id number] [place] [address] Oct, [facility] [address] [id number] [place] [address] Oct, Pain in thoracic spine M54.6 [facility] [address] [place] [id number] [place] [address] Sep, Pain in thoracic spine M54.6 ; BMI 40.0-44.9, adult Z68.41 and History of tobacco use Z87.891 [facility] [address] [id number] [place] [address] Sep, [facility] [address] [id number] [place] [address] Sep, Pain in thoracic spine M54.6 [facility] [address] [place] [id number] [place] [address] Sep, [facility] [address] [id number] [place] [address] Aug, Chronic obstructive pulmonary disease, unspecified J44.9 [facility] [address] [id number] [place] [address] Aug, [facility] [address] [id number] [place] [address] Aug, Pain in thoracic spine M54.6 [facility] [address] [id number] [place] [address] Aug, Encounter for immunization Z23 [facility] [address] [id number] [address] Jul, Pain in thoracic spine M54.6 [facility] [address] [facility] [id number] [address] Jun, [facility] [address] [facility] [id number], [place] [address] Jun, Therapeutic drug monitoring Z51.81 ; Pain in thoracic spine M54.6 and BMI 40.0-44.9, adult Z68.41 [facility] [address] [id number], [place] [address] Jun, [facility] [address] [facility] [id number] [place] [address] Jun, Pain in thoracic spine M54.6 [facility] [address] [id number] [address] May, Pain in thoracic spine M54.6 [facility] [address] [facility] [id number] [address] May, [facility] [address] [id number] [address] Apr, [facility] [address] [facility] [id number], [place] [address] Apr, Pain in thoracic spine M54.6 [facility] [address] [address] Apr, [facility] [address] [facility] [id number], [place] [address] Apr, Medicare annual wellness visit, initial Z00.00 ; BMI 40.0-44.9, adult Z68.41 ; Chronic obstructive pulmonary disease, unspecified J44.9 ; Other chronic pain G89.29 and Essential hypertension I10 [facility] [address] [facility] [id number], [place] [address] March, Pain in thoracic spine M54.6 [place] [id number] [place] [id number] [place] [address] Feb, Pain in thoracic spine M54.6 [place] [address] [address] Feb, Pain in thoracic spine M54.6 ; Other chronic pain G89.29 ; Chronic obstructive pulmonary disease, unspecified J44.9 and Periumbilical hernia K42.9 [place] [address] [address] Jan, Pain in thoracic spine M54.6 [place] [address] [address] Jan, Chronic obstructive pulmonary disease, unspecified J44.9 ; Encounter for immunization Z23 ; Screening, lipid Z13.220 ; Renal insufficiency N28.9 ; Pain in thoracic spine M54.6 and Other chronic pain G89.29 [facility] [address] [address] Sep, Irritation of right eye H57.8 [place] [address] [address] May, Chronic obstructive pulmonary disease, unspecified COPD type J44.9 [place] [address] [address] March, [place] [address] [address] Oct, Medicare annual wellness visit, subsequent Z00.00 ; Encounter for immunization Z23 and S/P cholecystectomy Z90.49 [place] [address] [address] Oct, [place] [address] [address] Sep, [facility] [address] [address] Aug, Wheezing R06.2 and Community acquired pneumonia J18.9 [facility] [address] [place] [id number] [place] [address] March, Shoulder fracture, right, with routine healing, subsequent encounter S42.91XD [facility] [address] [place] [id number] [place] [address] Feb, Shoulder fracture, right S42.91XA [facility] [address] [address] Feb, Shoulder pain M25.519 [facility] [address] [address] Feb, [facility] [address] [place] [id number] [place] [address] Feb, Right shoulder pain M25.511 [place] [address] [address] Feb, [facility] [address] [place] [id number] [place] [address] Jan, Renal insufficiency N28.9 [facility] [address] [place] [id number] [place] [address] Dec, [facility] [address] [place] [id number] [place] [address] Dec, Bronchitis J40 [facility] [address] [place] [id number] [place] [address] Dec, [facility] [address] [place] [id number] [place] [address] Dec, [facility] [address] [place] [id number] [place] [address] Nov, [facility] [address] [place] [id number] [place] [address] Oct, Renal insufficiency N28.9 [facility] [address] [place] [id number] [address] Oct, Screening, lipid Z13.220 [facility] [address] [address] Oct, Chronic obstructive pulmonary disease, unspecified COPD type J44.9 ; Gastroesophageal reflux disease, esophagitis presence not specified K21.9 ; Dysthymia F34.1 and Screening, lipid Z13.220 [facility] [address] [address] Jun, [facility] [address] [address] Jun, Sleep apnea 780.57 and COPD (chronic obstructive pulmonary disease) 496 [facility] [address] [place] [id number] [place] [address] Apr, COPD (chronic obstructive pulmonary disease) 496 [facility] [address] [place] [id number] [place] [address] Feb, [facility] [address] [place] [id number] [place] [address] Feb, [facility] [address] [place] [id number] [place] [address] Nov, [facility] [address] [place] [id number] [place] [address] Nov, [facility] [address] [place] [id number] [place] [address] Nov, [facility] [address] [place] [id number] [place] [address] Nov, [facility] [address] [place] [id number] [place] [address] Oct, [facility] [address] [place] [id number] [place] [address] Oct, [facility] [address] [place] [id number] [place] [address] Oct, [facility] [place] [facility] [address] [id number] [place] [address] Oct, [facility] [place] [facility] [address] [id number] [place] [address] Oct, [facility] [place] [facility] [address] [id number] [place] [address] Oct, [facility] [place] [facility] [address] [id number] [place] [address] Oct, [facility] [place] [facility] [address] [id number] [place] [address] Oct, [facility] [place] [facility] [address] [id number] [place] [address] March, [facility] [place] [facility] [address] [id number] [place] [address] March, [facility] [place] [facility] [address] [id number] [place] [address] March, [facility] [place] [facility] [address] [id number] [place] [address] March, [facility] [place] [facility] [address] [id number] [place] [address] Feb, [facility] [place] [facility] [address] [id number] [place] [address] Feb, [facility] [place] [facility] [address] [id number] [place] [address] Feb, [facility] [place] [facility] [address] [id number] [place] [address] Feb, [facility] [place] [facility] [address] [id number] [place] [address] Feb, [facility] [place] [facility] [address] [id number] [place] [address] Feb, [facility] [place] [facility] [address] [id number] [place] [address] 10 Jan, 2014 [facility] [address] [id number] [place] [address] 10 Jan, 2014 [facility] [address] [id number] [place] [address] Nov, [facility] [address] [id number] [place] [address] Nov, [facility] [address] [id number] [place] [address] Nov, [facility] [address] [id number] [place] [address] Aug, [facility] [address] [id number] [place] [address] Aug, [facility] [address] [id number] [place] [address] Aug, [facility] [address] [id number] [place] [address] Jun, [facility] [address] [id number] [place] [address] Jun, [facility] [address] [id number] [place] [address] Apr, [facility] [place] [facility] [address] [id number] [place] [address] Apr, [facility] [address] [id number] [place] [address] March, [facility] [place] [facility] [address] [id number] [place] [address] Feb, [facility] [place] [facility] [address] [id number] [place] [address] Feb, [facility] [place] [facility] [address] [id number] [place] [address] Jan, [facility] [address] [id number] [place] [address] Dec, [facility] [place] [facility] [address] [id number] [place] [address] Dec, [facility] [address] [id number] [place] [address] Dec, [facility] [address] [id number] [place] [address] Nov, [facility] [address] [id number] [place] [address] Nov, [facility] [address] [id number] [place] [address] Nov, [facility] [address] [id number] [place] [address] Oct, [facility] [address] [id number] [place] [address] Oct, [facility] [address] [id number] [place] [address] Sep, [facility] [address] [id number] [place] [address] Sep, [facility] [address] [id number] [place] [address] Aug, [facility] [place] [facility] [address] [id number], [place] [address] Jul, [facility] [place] [facility] [address] [id number] [place] [address] May, [facility] [place] [facility] [address] [id number] [address] May, [facility] [place] [facility] [address] [id number] [place] [address] March, [facility] [place] [facility] [address] [id number] [place] [address] 16 Nov, 2011 [facility] [place] [facility] [address] [id number] [place] [address] Oct, [facility] [place] [facility] [address] [id number] [place] [address] 11 Sep, 2011 [facility] [place] [facility] [address] [id number] [place] [address] 10 Sep, 2011 [facility] [place] [facility] [address] [id number] [place] [address] 10 Sep, 2011 [facility] [place] [facility] [address] [id number] [place] [address] 12 Aug, 2011 [facility] [place] [facility] [address] [id number] [place] [address] 10 Aug, 2011 [facility] [place] [facility] [address] [id number] [place] [address] 21 Oct, 2010 [facility] [place] [facility] [address] [id number] [place] [address] 16 Oct, 2010 [facility] [place] [facility] [address] [id number] [place] [address] 16 Oct, 2010 [facility] [place] [facility] [address] [facility] [id number] [place] [address] 18 Aug, 2010 [facility] [place] [facility] [address] [id number] [place] [address] 14 Aug, 2010 [facility] [place] [facility] [address] [id number] [place] [address] 14 Aug, 2010 [facility] [place] [facility] [address] [id number] [place] [address] 02 Oct, 2009 [facility] [place] [facility] [address] [id number] [place] [address] Sep, [facility] [place] [facility] [address] [facility] [id number] [place] [address] 04 Sep, 2009 [facility] [place] [facility] [address] [facility] [id number] [place] [address] 16 Jul, 2009 IMMUNIZATIONS No Known Immunizations SOCIAL HISTORY Never Assessed REASON FOR VISIT EMR-[facility] PLAN OF CARE VITAL SIGNS MEDICATIONS Unknown [...]
--- NOTE | 2019-06-07 07:34 | Progress Note-Pre Operative ---
Pre-Operative Progress Note H&P Reviewed The H&P was reviewed, patient examined and no changes noted. Date Seen by Provider: Jun 07, 2019 Time Seen by Provider: 07:33 Date H&P Reviewed: Jun 07, 2019 Time H&P Reviewed: 07:33 Pre-Operative Diagnosis: right knee medial meniscus tear and chondromalacia MARILEE EDWARD MD Jun 07, 2019 07:34
--- OUTSIDE RECORDS SUMMARY | 2019-06-07 07:34 | XMS REPORT ---
Author Author Migration, Doctor Organization [facility] Address Unknown Phone Unavailable Care Team Providers Care Coal Hauler Name Role Phone Migration, Doctor Unavailable Unavailable PROBLEMS Type Condition ICD9-CM Code XBS08-ZS Code Onset Dates Condition Status SNOMED Code Problem Mammogram declined Z53.20 Active 53983018207702362 Problem Tobacco abuse Z72.0 Active 71845881 Problem BMI 40.0-44.9, adult Z68.41 Active 266683288 Problem Essential hypertension I10 Active 81511747 Problem Shoulder fracture, right S42.91XA Active 73650558 Problem S/P cholecystectomy Z90.49 Active 252810718 Problem Chronic obstructive pulmonary disease, unspecified J44.9 Active 12086759 Problem Other chronic pain G89.29 Active [id number] ALLERGIES No Information ENCOUNTERS Encounter Location Date Diagnosis [place] [address] [address] Jan, [place] [address] [address] Jan, Pain in thoracic spine M54.6 [place] [address] [address] Dec, Pain in thoracic spine M54.6 [place] [address] [address] Dec, Chronic obstructive pulmonary disease, unspecified J44.9 ; Other chronic pain G89.29 and BMI 40.0-44.9, adult Z68.41 [place] [address] [address] Dec, [place] [address] [address] Nov, Pain in thoracic spine M54.6 [place] [address] [id number] [address] Nov, [facility] [address] [place] [id number] [place] [address] Nov, Pain in thoracic spine M54.6 [facility] [address] [place] [id number] [place] [address] Oct, [facility] [address] [place] [address] [id number] [place] [address] Oct, [facility] [id number] [place] [address] Oct, Pain in thoracic spine M54.6 [facility] [address] [place] [id number] [place] [address] Sep, Pain in thoracic spine M54.6 ; BMI 40.0-44.9, adult Z68.41 and History of tobacco use Z87.891 [facility] [address] [place] [place] [id number] [place] [address] Sep, [facility] [address] [place] [id number] [place] [address] Sep, Pain in thoracic spine M54.6 [facility] [address] [place] [id number] [place] [address] Sep, [facility] [address] [place] [id number] [place] [address] Aug, Chronic obstructive pulmonary disease, unspecified J44.9 [facility] [address] [place] [id number] [place] [address] Aug, [facility] [address] [id number] [place] [address] Aug, Pain in thoracic spine M54.6 [facility] [address] [place] [place] [id number] [place] [address] Aug, Encounter for immunization Z23 [facility] [address] [id number] [address] Jul, Pain in thoracic spine M54.6 [facility] [address] [facility] [id number] [address] Jun, [facility] [address] [facility] [id number], [place] [address] Jun, Therapeutic drug monitoring Z51.81 ; Pain in thoracic spine M54.6 and BMI 40.0-44.9, adult Z68.41 [facility] [address] [id number], [place] [address] Jun, [facility] [address] [facility] [id number] [place] [address] Jun, Pain in thoracic spine M54.6 [facility] [address] [id number] [address] May, Pain in thoracic spine M54.6 [facility] [address] [facility] [id number], [place] [address] May, [facility] [address] [id number], [place] [address] Apr, [facility] [address] [facility] [id number], [place] [address] Apr, Pain in thoracic spine M54.6 [facility] [address] [address] Apr, [facility] [address] [facility] [id number], [place] [address] Apr, Medicare annual wellness visit, initial Z00.00 ; BMI 40.0-44.9, adult Z68.41 ; Chronic obstructive pulmonary disease, unspecified J44.9 ; Other chronic pain G89.29 and Essential hypertension I10 [facility] [address] [facility] [id number], [place] [address] March, Pain in thoracic spine M54.6 [place] [id number] [place] [id number] [place] [address] Feb, Pain in thoracic spine M54.6 [place] [address] [address] Feb, Pain in thoracic spine M54.6 ; Other chronic pain G89.29 ; Chronic obstructive pulmonary disease, unspecified J44.9 and Periumbilical hernia K42.9 [place] [address] [address] Jan, Pain in thoracic spine M54.6 [place] [address] [address] Jan, Chronic obstructive pulmonary disease, unspecified J44.9 ; Encounter for immunization Z23 ; Screening, lipid Z13.220 ; Renal insufficiency N28.9 ; Pain in thoracic spine M54.6 and Other chronic pain G89.29 [facility] [address] [address] Sep, Irritation of right eye H57.8 [place] [address] [address] May, Chronic obstructive pulmonary disease, unspecified COPD type J44.9 [place] [address] [address] March, [place] [address] [address] Oct, Medicare annual wellness visit, subsequent Z00.00 ; Encounter for immunization Z23 and S/P cholecystectomy Z90.49 [place] [address] [address] Oct, [place] [address] [address] Sep, [facility] [address] [address] Aug, Wheezing R06.2 and Community acquired pneumonia J18.9 [facility] [address] [place] [id number] [place] [address] March, Shoulder fracture, right, with routine healing, subsequent encounter S42.91XD [facility] [address] [place] [id number] [place] [address] Feb, Shoulder fracture, right S42.91XA [facility] [address] [address] Feb, Shoulder pain M25.519 [facility] [address] [address] Feb, [facility] [address] [place] [id number] [place] [address] Feb, Right shoulder pain M25.511 [place] [address] [address] Feb, [facility] [address] [place] [id number] [place] [address] Jan, Renal insufficiency N28.9 [facility] [address] [place] [id number] [place] [address] Dec, [facility] [address] [place] [id number] [place] [address] Dec, Bronchitis J40 [facility] [address] [place] [id number] [place] [address] Dec, [facility] [address] [place] [id number] [place] [address] Dec, [facility] [address] [place] [id number] [place] [address] Nov, [facility] [address] [place] [id number] [place] [address] Oct, Renal insufficiency N28.9 [facility] [address] [place] [id number] [address] Oct, Screening, lipid Z13.220 [facility] [address] [address] Oct, Chronic obstructive pulmonary disease, unspecified COPD type J44.9 ; Gastroesophageal reflux disease, esophagitis presence not specified K21.9 ; Dysthymia F34.1 and Screening, lipid Z13.220 [facility] [address] [address] Jun, [facility] [address] [address] Jun, Sleep apnea 780.57 and COPD (chronic obstructive pulmonary disease) 496 [facility] [address] [place] [id number] [place] [address] Apr, COPD (chronic obstructive pulmonary disease) 496 [facility] [address] [place] [id number] [place] [address] Feb, [facility] [address] [place] [id number] [place] [address] Feb, [facility] [address] [place] [id number] [place] [address] Nov, [facility] [address] [place] [id number] [place] [address] Nov, [facility] [address] [place] [id number] [place] [address] Nov, [facility] [address] [place] [id number] [place] [address] Nov, [facility] [address] [place] [id number] [place] [address] Oct, [facility] [address] [place] [id number] [place] [address] Oct, [facility] [address] [place] [id number] [place] [address] Oct, [facility] [place] [facility] [address] [id number] [place] [address] Oct, [facility] [place] [facility] [address] [id number] [place] [address] Oct, [facility] [place] [facility] [address] [id number] [place] [address] Oct, [facility] [place] [facility] [address] [id number] [place] [address] Oct, [facility] [place] [facility] [address] [id number] [place] [address] Oct, [facility] [place] [facility] [address] [id number] [place] [address] March, [facility] [place] [facility] [address] [id number] [place] [address] March, [facility] [place] [facility] [address] [id number] [place] [address] March, [facility] [place] [facility] [address] [id number] [place] [address] March, [facility] [place] [facility] [address] [id number] [place] [address] Feb, [facility] [place] [facility] [address] [id number] [place] [address] Feb, [facility] [place] [facility] [address] [id number] [place] [address] Feb, [facility] [place] [facility] [address] [id number] [place] [address] Feb, [facility] [place] [facility] [address] [id number] [place] [address] Feb, [facility] [place] [facility] [address] [id number] [place] [address] Feb, [facility] [place] [facility] [address] [id number] [place] [address] 10 Jan, 2014 [facility] [address] [id number] [place] [address] 10 Jan, 2014 [facility] [address] [id number] [place] [address] Nov, [facility] [address] [id number] [place] [address] Nov, [facility] [address] [id number] [place] [address] Nov, [facility] [address] [id number] [place] [address] Aug, [facility] [address] [id number] [place] [address] Aug, [facility] [address] [id number] [place] [address] Aug, [facility] [address] [id number] [place] [address] Jun, [facility] [address] [id number] [place] [address] Jun, [facility] [address] [id number] [place] [address] Apr, [facility] [place] [facility] [address] [id number] [place] [address] Apr, [facility] [address] [id number] [place] [address] March, [facility] [place] [facility] [address] [id number] [place] [address] Feb, [facility] [place] [facility] [address] [id number] [place] [address] Feb, [facility] [place] [facility] [address] [id number] [place] [address] Jan, [facility] [address] [id number] [place] [address] Dec, [facility] [place] [facility] [address] [id number] [place] [address] Dec, [facility] [address] [id number] [place] [address] Dec, [facility] [address] [id number] [place] [address] Nov, [facility] [address] [id number] [place] [address] Nov, [facility] [address] [id number] [place] [address] Nov, [facility] [address] [id number] [place] [address] Oct, [facility] [address] [id number] [place] [address] Oct, [facility] [address] [id number] [place] [address] Sep, [facility] [address] [id number] [place] [address] Sep, [facility] [address] [id number] [place] [address] Aug, [facility] [place] [facility] [address] [id number], [place] [address] Jul, [facility] [place] [facility] [address] [id number] [place] [address] May, [facility] [place] [facility] [address] [id number], [place] [address] May, [facility] [place] [facility] [address] [id number] [place] [address] March, [facility] [place] [facility] [address] [id number] [place] [address] 16 Nov, 2011 [facility] [place] [facility] [address] [id number] [place] [address] Oct, [facility] [place] [facility] [address] [id number] [place] [address] 11 Sep, 2011 [facility] [place] [facility] [address] [id number] [place] [address] 10 Sep, 2011 [facility] [place] [facility] [address] [id number] [place] [address] 10 Sep, 2011 [facility] [place] [facility] [address] [id number] [place] [address] 12 Aug, 2011 [facility] [place] [facility] [address] [id number] [place] [address] 10 Aug, 2011 [facility] [place] [facility] [address] [id number] [place] [address] 21 Oct, 2010 [facility] [place] [facility] [address] [id number] [place] [address] 16 Oct, 2010 [facility] [place] [facility] [address] [id number] [place] [address] 16 Oct, 2010 [facility] [place] [facility] [address] [facility] [id number] [place] [address] 18 Aug, 2010 [facility] [place] [facility] [address] [id number] [place] [address] 14 Aug, 2010 [facility] [place] [facility] [address] [id number] [place] [address] 14 Aug, 2010 [facility] [place] [facility] [address] [id number] [place] [address] 02 Oct, 2009 [facility] [place] [facility] [address] [id number] [place] [address] Sep, [facility] [place] [facility] [address] [facility] [id number] [place] [address] 04 Sep, 2009 [facility] [place] [facility] [address] [facility] [id number] [place] [address] 16 Jul, 2009 IMMUNIZATIONS No Known Immunizations SOCIAL HISTORY Never Assessed REASON FOR VISIT EMR-[facility] PLAN OF CARE VITAL SIGNS MEDICATIONS Unknown [...]
--- OUTSIDE RECORDS SUMMARY | 2019-06-07 07:34 | XMS REPORT ---
Author Author Migration, Doctor Organization [facility] Address Unknown Phone Unavailable Care Team Providers Care Review Analyst Name Role Phone Migration, Doctor Unavailable Unavailable PROBLEMS Type Condition ICD9-CM Code PAZ96-VE Code Onset Dates Condition Status SNOMED Code Problem Mammogram declined Z53.20 Active 99109886886446910 Problem Tobacco abuse Z72.0 Active 93059559 Problem BMI 40.0-44.9, adult Z68.41 Active 601589482 Problem Essential hypertension I10 Active 07033012 Problem Shoulder fracture, right S42.91XA Active 99401483 Problem S/P cholecystectomy Z90.49 Active 686577557 Problem Chronic obstructive pulmonary disease, unspecified J44.9 Active 41875932 Problem Other chronic pain G89.29 Active [id number] ALLERGIES No Information ENCOUNTERS Encounter Location Date Diagnosis [place] [address] [address] Jan, [place] [address] [address] Jan, Pain in thoracic spine M54.6 [place] [address] [address] Dec, Pain in thoracic spine M54.6 [place] [address] [address] Dec, Chronic obstructive pulmonary disease, unspecified J44.9 ; Other chronic pain G89.29 and BMI 40.0-44.9, adult Z68.41 [place] [address] [address] Dec, [place] [address] [address] Nov, Pain in thoracic spine M54.6 [place] [address] [id number] [address] Nov, [facility] [address] [place] [id number] [place] [address] Nov, Pain in thoracic spine M54.6 [facility] [address] [id number] [place] [address] Oct, [facility] [address] [place] [id number] [place] [address] Oct, [facility] [address] [place] [id number] [place] [address] Oct, Pain in thoracic spine M54.6 [facility] [address] [place] [id number] [place] [address] Sep, Pain in thoracic spine M54.6 ; BMI 40.0-44.9, adult Z68.41 and History of tobacco use Z87.891 [facility] [address] [place] [id number] [place] [address] Sep, [facility] [address] [place] [id number] [place] [address] Sep, Pain in thoracic spine M54.6 [facility] [address] [id number] [place] [address] Sep, [facility] [address] [id number] [place] [address] Aug, Chronic obstructive pulmonary disease, unspecified J44.9 [facility] [address] [id number] [place] [address] Aug, [facility] [address] [id number] [place] [address] Aug, Pain in thoracic spine M54.6 [facility] [address] [place] [id number] [place] [address] Aug, Encounter for immunization Z23 [facility] [address] [id number] [address] Jul, Pain in thoracic spine M54.6 [facility] [address] [facility] [id number], [place] [address] Jun, [facility] [address] [facility] [id number], [place] [address] Jun, Therapeutic drug monitoring Z51.81 ; Pain in thoracic spine M54.6 and BMI 40.0-44.9, adult Z68.41 [facility] [address] [id number], [place] [address] Jun, [facility] [address] [facility] [id number] [place] [address] Jun, Pain in thoracic spine M54.6 [facility] [address] [id number] [address] May, Pain in thoracic spine M54.6 [facility] [address] [facility] [id number], [place] [address] May, [facility] [address] [id number] [address] Apr, [facility] [address] [facility] [id number], [place] [address] Apr, Pain in thoracic spine M54.6 [facility] [address], [place] [address] Apr, [facility] [address] [facility] [id number], [place] [address] Apr, Medicare annual wellness visit, initial Z00.00 ; BMI 40.0-44.9, adult Z68.41 ; Chronic obstructive pulmonary disease, unspecified J44.9 ; Other chronic pain G89.29 and Essential hypertension I10 [facility] [address] [facility] [id number], [place] [address] March, Pain in thoracic spine M54.6 [place] [address] [place] [id number] [place] [address] Feb, Pain in thoracic spine M54.6 [place] [address] [address] Feb, Pain in thoracic spine M54.6 ; Other chronic pain G89.29 ; Chronic obstructive pulmonary disease, unspecified J44.9 and Periumbilical hernia K42.9 [place] [address] [address] Jan, Pain in thoracic spine M54.6 [place] [address] [address] Jan, Chronic obstructive pulmonary disease, unspecified J44.9 ; Encounter for immunization Z23 ; Screening, lipid Z13.220 ; Renal insufficiency N28.9 ; Pain in thoracic spine M54.6 and Other chronic pain G89.29 [facility] [address] [address] Sep, Irritation of right eye H57.8 [place] [address] [address] May, Chronic obstructive pulmonary disease, unspecified COPD type J44.9 [place] [address] [address] March, [place] [address] [address] Oct, Medicare annual wellness visit, subsequent Z00.00 ; Encounter for immunization Z23 and S/P cholecystectomy Z90.49 [place] [address] [address] Oct, [place] [address] [address] Sep, [facility] [address] [address] Aug, Wheezing R06.2 and Community acquired pneumonia J18.9 [facility] [address] [place] [id number] [place] [address] March, Shoulder fracture, right, with routine healing, subsequent encounter S42.91XD [facility] [address] [place] [id number] [place] [address] Feb, Shoulder fracture, right S42.91XA [facility] [address] [address] Feb, Shoulder pain M25.519 [facility] [address] [address] Feb, [facility] [address] [place] [id number] [place] [address] Feb, Right shoulder pain M25.511 [place] [address] [address] Feb, [facility] [address] [place] [id number] [place] [address] Jan, Renal insufficiency N28.9 [facility] [address] [place] [id number] [place] [address] Dec, [facility] [address] [place] [id number] [place] [address] Dec, Bronchitis J40 [facility] [address] [place] [id number] [place] [address] Dec, [facility] [address] [place] [id number] [place] [address] Dec, [facility] [address] [place] [id number] [place] [address] Nov, [facility] [address] [place] [id number] [place] [address] Oct, Renal insufficiency N28.9 [facility] [address] [place] [id number] [address] Oct, Screening, lipid Z13.220 [facility] [address] [address] Oct, Chronic obstructive pulmonary disease, unspecified COPD type J44.9 ; Gastroesophageal reflux disease, esophagitis presence not specified K21.9 ; Dysthymia F34.1 and Screening, lipid Z13.220 [facility] [address] [address] Jun, [facility] [address] [address] Jun, Sleep apnea 780.57 and COPD (chronic obstructive pulmonary disease) 496 [facility] [address] [place] [id number] [place] [address] Apr, COPD (chronic obstructive pulmonary disease) 496 [facility] [address] [place] [id number] [place] [address] Feb, [facility] [address] [place] [id number] [place] [address] Feb, [facility] [address] [place] [id number] [place] [address] Nov, [facility] [address] [place] [id number] [place] [address] Nov, [facility] [address] [place] [id number] [place] [address] Nov, [facility] [address] [place] [id number] [place] [address] Nov, [facility] [address] [place] [id number] [place] [address] Oct, [facility] [address] [place] [id number] [place] [address] Oct, [facility] [address] [place] [id number] [place] [address] Oct, [facility] [place] [facility] [address] [id number] [place] [address] Oct, [facility] [place] [facility] [address] [id number] [place] [address] Oct, [facility] [place] [facility] [address] [id number] [place] [address] Oct, [facility] [place] [facility] [address] [id number] [place] [address] Oct, [facility] [place] [facility] [address] [id number] [place] [address] Oct, [facility] [place] [facility] [address] [id number] [place] [address] March, [facility] [place] [facility] [address] [id number] [place] [address] March, [facility] [place] [facility] [address] [id number] [place] [address] March, [facility] [place] [facility] [address] [id number] [place] [address] March, [facility] [place] [facility] [address] [id number] [place] [address] Feb, [facility] [place] [facility] [address] [id number] [place] [address] Feb, [facility] [place] [facility] [address] [id number] [place] [address] Feb, [facility] [place] [facility] [address] [id number] [place] [address] Feb, [facility] [place] [facility] [address] [id number] [place] [address] Feb, [facility] [place] [facility] [address] [id number] [place] [address] Feb, [facility] [place] [facility] [address] [id number] [place] [address] 10 Jan, 2014 [facility] [address] [id number] [place] [address] 10 Jan, 2014 [facility] [address] [id number] [place] [address] Nov, [facility] [address] [id number] [place] [address] Nov, [facility] [address] [id number] [place] [address] Nov, [facility] [address] [id number] [place] [address] Aug, [facility] [address] [id number] [place] [address] Aug, [facility] [address] [id number] [place] [address] Aug, [facility] [address] [id number] [place] [address] Jun, [facility] [address] [id number] [place] [address] Jun, [facility] [address] [id number] [place] [address] Apr, [facility] [place] [facility] [address] [id number] [place] [address] Apr, [facility] [address] [id number] [place] [address] March, [facility] [place] [facility] [address] [id number] [place] [address] Feb, [facility] [place] [facility] [address] [id number] [place] [address] Feb, [facility] [place] [facility] [address] [id number] [place] [address] Jan, [facility] [address] [id number] [place] [address] Dec, [facility] [place] [facility] [address] [id number] [place] [address] Dec, [facility] [address] [id number] [place] [address] Dec, [facility] [address] [id number] [place] [address] Nov, [facility] [address] [id number] [place] [address] Nov, [facility] [address] [id number] [place] [address] Nov, [facility] [address] [id number] [place] [address] Oct, [facility] [address] [id number] [place] [address] Oct, [facility] [address] [id number] [place] [address] Sep, [facility] [address] [id number] [place] [address] Sep, [facility] [address] [id number] [place] [address] Aug, [facility] [place] [facility] [address] [id number], [place] [address] Jul, [facility] [place] [facility] [address] [id number] [place] [address] May, [facility] [place] [facility] [address] [id number], [place] [address] May, [facility] [place] [facility] [address] [id number] [place] [address] March, [facility] [place] [facility] [address] [id number] [place] [address] 16 Nov, 2011 [facility] [place] [facility] [address] [id number] [place] [address] Oct, [facility] [place] [facility] [address] [id number] [place] [address] 11 Sep, 2011 [facility] [place] [facility] [address] [id number] [place] [address] 10 Sep, 2011 [facility] [place] [facility] [address] [id number] [place] [address] 10 Sep, 2011 [facility] [place] [facility] [address] [id number] [place] [address] 12 Aug, 2011 [facility] [place] [facility] [address] [id number] [place] [address] 10 Aug, 2011 [facility] [place] [facility] [address] [id number] [place] [address] 21 Oct, 2010 [facility] [place] [facility] [address] [id number] [place] [address] 16 Oct, 2010 [facility] [place] [facility] [address] [id number] [place] [address] 16 Oct, 2010 [facility] [place] [facility] [address] [facility] [id number] [place] [address] 18 Aug, 2010 [facility] [place] [facility] [address] [id number] [place] [address] 14 Aug, 2010 [facility] [place] [facility] [address] [id number] [place] [address] 14 Aug, 2010 [facility] [place] [facility] [address] [id number] [place] [address] 02 Oct, 2009 [facility] [place] [facility] [address] [id number] [place] [address] Sep, [facility] [place] [facility] [address] [facility] [id number] [place] [address] 04 Sep, 2009 [facility] [place] [facility] [address] [facility] [id number] [place] [address] Jul, IMMUNIZATIONS No Known Immunizations SOCIAL HISTORY Never Assessed REASON FOR VISIT [facility] PLAN OF CARE VITAL SIGNS MEDICATIONS Medication Instructions Dosage Frequency Start Date End Date Duration Status Breo Ellipta by inhalation route [address] Benavides Nov, Active Albuterol 0.083% by Inhalation route 4 times per day Feb, Active Omeprazole Magnesium 20 mg 1 capsule by Oral route 1 time per day Oct, Active Atrovent 0.02 % 2.5 mL by Inhalation route 4 times per day PRN Feb, Active PredniSONE 10 mg 4 tablet by Oral route 1 time per day x 4 d, 3 tabs po qd x 4 d, 2 tabs po qd x 4 d, 1 tabs po x 4 d Nov, Active Zithromax Z-Hossein 250 mg 2 tablet by Oral route 1 time per day for 1 days then take 1 tab daily on days 2-5 Nov, Active Wellbutrin SR 150 mg 1 Tablet 2 times per day Oct, Active Ventolin HFA 90 mcg/actuation inhale 2 puff by Inhalation route as needed every 6 hours Use prn shortness of breath Aug, Active RESULTS No Results PROCEDURES No Known procedures INSTRUCTIONS MEDICATIONS ADMINISTERED No Known Medications MEDICAL (GENERAL) HISTORY Type Description Date Medical History sleep apnea Medical History emphysema Medical History heartburn Medical History broken back in two place Medical History broken right shoulder Surgical History x 3 Surgical History gallbladder Hospitalization History surgery
--- OUTSIDE RECORDS SUMMARY | 2019-06-07 07:34 | XMS REPORT ---
Author Author Migration, Doctor Organization [facility] Address Unknown Phone Unavailable Care Team Providers Care Hand Or Machine Paster Name Role Phone Migration, Doctor Unavailable Unavailable PROBLEMS Type Condition ICD9-CM Code [id number] Code Onset Dates Condition Status SNOMED Code Problem Mammogram declined Z53.20 Active 68698414475011782 Problem Tobacco abuse Z72.0 Active 17439724 Problem BMI 40.0-44.9, adult Z68.41 Active 713915921 Problem Essential hypertension I10 Active 71240117 Problem Shoulder fracture, right S42.91XA Active 54758424 Problem S/P cholecystectomy Z90.49 Active 535005164 Problem Chronic obstructive pulmonary disease, unspecified J44.9 Active 12404202 Problem Other chronic pain G89.29 Active [id number] ALLERGIES No Information ENCOUNTERS Encounter Location Date Diagnosis [place] [address] [address] Jan, [place] [address] [address] Jan, Pain in thoracic spine M54.6 [place] [address] [address] Dec, Pain in thoracic spine M54.6 [place] [address] [address] Dec, Chronic obstructive pulmonary disease, unspecified J44.9 ; Other chronic pain G89.29 and BMI 40.0-44.9, adult Z68.41 [place] [address] [address] Dec, [place] [address] [address] Nov, Pain in thoracic spine M54.6 [place] [address] [id number] [address] Nov, [facility] [address] [place] [id number] [place] [address] Nov, Pain in thoracic spine M54.6 [facility] [address] [place] [id number] [place] [address] Oct, [facility] [address] [place] [id number] [place] [address] Oct, [facility] [address] [place] [id number] [place] [address] Oct, Pain in thoracic spine M54.6 [facility] [address] [place] [id number] [place] [address] Sep, Pain in thoracic spine M54.6 ; BMI 40.0-44.9, adult Z68.41 and History of tobacco use Z87.891 [facility] [address] [place] [id number] [place] [address] Sep, [facility] [address] [place] [id number] [place] [address] Sep, Pain in thoracic spine M54.6 [facility] [address] [place] [id number] [place] [address] Sep, [facility] [address] [place] [id number] [place] [address] Aug, Chronic obstructive pulmonary disease, unspecified J44.9 [facility] [address] [place] [id number] [place] [address] Aug, [facility] [address] [place] [id number] [place] [address] Aug, Pain in thoracic spine M54.6 [facility] [address] [place] [id number] [place] [address] Aug, Encounter for immunization Z23 [facility] [address] [id number] [address] Jul, Pain in thoracic spine M54.6 [facility] [address] [facility] [id number], [place] [address] Jun, [facility] [address] [facility] [id number], [place] [address] Jun, Therapeutic drug monitoring Z51.81 ; Pain in thoracic spine M54.6 and BMI 40.0-44.9, adult Z68.41 [facility] [address] [id number] [address] Jun, [facility] [address] [facility] [id number] [place] [address] Jun, Pain in thoracic spine M54.6 [facility] [address] [id number] [address] May, Pain in thoracic spine M54.6 [facility] [address] [facility] [id number], [place] [address] May, [facility] [address] [place] [id number] [address] Apr, [facility] [address] [facility] [id number], [place] [address] Apr, Pain in thoracic spine M54.6 [facility] [id number] [address] Apr, [facility] [address] [facility] [id number], [place] [address] Apr, Medicare annual wellness visit, initial Z00.00 ; BMI 40.0-44.9, adult Z68.41 ; Chronic obstructive pulmonary disease, unspecified J44.9 ; Other chronic pain G89.29 and Essential hypertension I10 [facility] [address] [facility] [id number], [place] [address] March, Pain in thoracic spine M54.6 [place] [address] [place] [id number] [place] [address] Feb, Pain in thoracic spine M54.6 [place] [address] [address] Feb, Pain in thoracic spine M54.6 ; Other chronic pain G89.29 ; Chronic obstructive pulmonary disease, unspecified J44.9 and Periumbilical hernia K42.9 [place] [address] [address] Jan, Pain in thoracic spine M54.6 [place] [address] [address] Jan, Chronic obstructive pulmonary disease, unspecified J44.9 ; Encounter for immunization Z23 ; Screening, lipid Z13.220 ; Renal insufficiency N28.9 ; Pain in thoracic spine M54.6 and Other chronic pain G89.29 [facility] [address] [address] Sep, Irritation of right eye H57.8 [place] [address] [address] May, Chronic obstructive pulmonary disease, unspecified COPD type J44.9 [place] [address] [address] March, [place] [address] [address] Oct, Medicare annual wellness visit, subsequent Z00.00 ; Encounter for immunization Z23 and S/P cholecystectomy Z90.49 [place] [address] [address] Oct, [place] [address] [address] Sep, [facility] [address] [address] Aug, Wheezing R06.2 and Community acquired pneumonia J18.9 [facility] [address] [place] [id number] [place] [address] March, Shoulder fracture, right, with routine healing, subsequent encounter S42.91XD [facility] [address] [place] [id number] [place] [address] Feb, Shoulder fracture, right S42.91XA [facility] [address] [address] Feb, Shoulder pain M25.519 [facility] [address] [address] Feb, [facility] [address] [place] [id number] [place] [address] Feb, Right shoulder pain M25.511 [place] [address] [address] Feb, [facility] [address] [place] [id number] [place] [address] Jan, Renal insufficiency N28.9 [facility] [address] [place] [id number] [place] [address] Dec, [facility] [address] [place] [id number] [place] [address] Dec, Bronchitis J40 [facility] [address] [place] [id number] [place] [address] Dec, [facility] [address] [place] [id number] [place] [address] Dec, [facility] [address] [place] [id number] [place] [address] Nov, [facility] [address] [place] [id number] [place] [address] Oct, Renal insufficiency N28.9 [facility] [address] [place] [id number] [address] Oct, Screening, lipid Z13.220 [facility] [address] [address] Oct, Chronic obstructive pulmonary disease, unspecified COPD type J44.9 ; Gastroesophageal reflux disease, esophagitis presence not specified K21.9 ; Dysthymia F34.1 and Screening, lipid Z13.220 [facility] [address] [address] Jun, [facility] [address] [address] Jun, Sleep apnea 780.57 and COPD (chronic obstructive pulmonary disease) 496 [facility] [address] [place] [id number] [place] [address] Apr, COPD (chronic obstructive pulmonary disease) 496 [facility] [address] [place] [id number] [place] [address] Feb, [facility] [address] [place] [id number] [place] [address] Feb, [facility] [address] [place] [id number] [place] [address] Nov, [facility] [address] [place] [id number] [place] [address] Nov, [facility] [address] [place] [id number] [place] [address] Nov, [facility] [address] [place] [id number] [place] [address] Nov, [facility] [address] [place] [id number] [place] [address] Oct, [facility] [address] [place] [id number] [place] [address] Oct, [facility] [address] [place] [id number] [place] [address] Oct, [facility] [place] [facility] [address] [id number] [place] [address] Oct, [facility] [place] [facility] [address] [id number] [place] [address] Oct, [facility] [place] [facility] [address] [id number] [place] [address] Oct, [facility] [place] [facility] [address] [id number] [place] [address] Oct, [facility] [place] [facility] [address] [id number] [place] [address] Oct, [facility] [place] [facility] [address] [id number] [place] [address] March, [facility] [place] [facility] [address] [id number] [place] [address] March, [facility] [place] [facility] [address] [id number] [place] [address] March, [facility] [place] [facility] [address] [id number] [place] [address] March, [facility] [place] [facility] [address] [id number] [place] [address] Feb, [facility] [place] [facility] [address] [id number] [place] [address] Feb, [facility] [place] [facility] [address] [id number] [place] [address] Feb, [facility] [place] [facility] [address] [id number] [place] [address] Feb, [facility] [place] [facility] [address] [id number] [place] [address] Feb, [facility] [place] [facility] [address] [id number] [place] [address] Feb, [facility] [place] [facility] [address] [id number] [place] [address] 10 Jan, 2014 [facility] [address] [id number] [place] [address] 10 Jan, 2014 [facility] [address] [id number] [place] [address] Nov, [facility] [address] [id number] [place] [address] Nov, [facility] [address] [id number] [place] [address] Nov, [facility] [address] [id number] [place] [address] Aug, [facility] [address] [id number] [place] [address] Aug, [facility] [address] [id number] [place] [address] Aug, [facility] [address] [id number] [place] [address] Jun, [facility] [address] [id number] [place] [address] Jun, [facility] [address] [id number] [place] [address] Apr, [facility] [place] [facility] [address] [id number] [place] [address] Apr, [facility] [address] [id number] [place] [address] March, [facility] [place] [facility] [address] [id number] [place] [address] Feb, [facility] [place] [facility] [address] [id number] [place] [address] Feb, [facility] [place] [facility] [address] [id number] [place] [address] Jan, [facility] [address] [id number] [place] [address] Dec, [facility] [place] [facility] [address] [id number] [place] [address] Dec, [facility] [address] [id number] [place] [address] Dec, [facility] [address] [id number] [place] [address] Nov, [facility] [address] [id number] [place] [address] Nov, [facility] [address] [id number] [place] [address] Nov, [facility] [address] [id number] [place] [address] Oct, [facility] [address] [id number] [place] [address] Oct, [facility] [address] [id number] [place] [address] Sep, [facility] [address] [id number] [place] [address] Sep, [facility] [address] [id number] [place] [address] Aug, [facility] [place] [facility] [address] [id number], [place] [address] Jul, [facility] [place] [facility] [address] [id number] [place] [address] May, [facility] [place] [facility] [address] [id number], [place] [address] May, [facility] [place] [facility] [address] [id number] [place] [address] March, [facility] [place] [facility] [address] [id number] [place] [address] 16 Nov, 2011 [facility] [place] [facility] [address] [id number] [place] [address] Oct, [facility] [place] [facility] [address] [id number] [place] [address] 11 Sep, 2011 [facility] [place] [facility] [address] [id number] [place] [address] 10 Sep, 2011 [facility] [place] [facility] [address] [id number] [place] [address] 10 Sep, 2011 [facility] [place] [facility] [address] [id number] [place] [address] 12 Aug, 2011 [facility] [place] [facility] [address] [id number] [place] [address] 10 Aug, 2011 [facility] [place] [facility] [address] [id number] [place] [address] 21 Oct, 2010 [facility] [place] [facility] [address] [id number] [place] [address] 16 Oct, 2010 [facility] [place] [facility] [address] [id number] [place] [address] 16 Oct, 2010 [facility] [place] [facility] [address] [facility] [id number] [place] [address] 18 Aug, 2010 [facility] [place] [facility] [address] [id number] [place] [address] 14 Aug, 2010 [facility] [place] [facility] [address] [id number] [place] [address] 14 Aug, 2010 [facility] [place] [facility] [address] [id number] [place] [address] 02 Oct, 2009 [facility] [place] [facility] [address] [id number] [place] [address] Sep, [facility] [place] [facility] [address] [facility] [id number] [place] [address] 04 Sep, 2009 [facility] [place] [facility] [address] [facility] [id number] [place] [address] 16 Jul, 2009 IMMUNIZATIONS No Known Immunizations SOCIAL HISTORY Never Assessed REASON FOR VISIT [place]MR[place] [place]AN OF CARE VITAL SIGNS MEDICATIONS Unknown [...]
--- NOTE | 2019-06-07 07:35 | Progress Note-Post Operative ---
Post-Operative Progess Note Surgeon (s)/Regional Transportation Manager (s) Surgeon MARILEE EDWARD MD Regional Transportation Manager: Stephane Helms Pre-Operative Diagnosis right knee medial meniscus tear and chondromalacia Post-Operative Diagnosis right knee medial meniscus tear and chondromalacia Procedure & Operative Findings Date of Procedure 06/07/19 Procedure Performed/Findings right knee arthroscopic partial medial meniscectomy and chondroplasty Anesthesia Type GETA Estimated Blood Loss Estimated blood loss (mL): minimal Specimens/Packing Specimens Removed none Packing: none MARILEE EDWARD MD Jun 07, 2019 07:34
--- OUTSIDE RECORDS SUMMARY | 2019-06-07 07:35 | XMS REPORT ---
Author Author PATRICIA JARAMILLO Organization [facility] Address [address] [place] [address] Care Team Providers Care Painter Helper Name Role Phone PATRICIA JARAMILLO Unavailable PROBLEMS Type Condition ICD9-CM Code FWF90-EV Code Onset Dates Condition Status SNOMED Code Problem Tobacco abuse Z72.0 Active 36849411 Problem Essential hypertension I10 Active 51012868 Problem BMI 40.0-44.9, adult Z68.41 Active 257819187 Problem S/P cholecystectomy Z90.49 Active 484366871 Problem Shoulder fracture, right S42.91XA Active 08921027 Problem Other chronic pain G89.29 Active 69128283 Problem Chronic obstructive pulmonary disease, unspecified J44.9 Active 93682584 ALLERGIES Substance Reaction Event Type Date Status Penicillin V Potassium hives Drug Allergy Sep, Active Advair Diskus hives Drug Allergy Sep, Active ENCOUNTERS Encounter Location Date Diagnosis [place] [id number] [place] [address] Oct, Pain in thoracic spine M54.6 [place] [id number] [place] [address] Sep, Pain in thoracic spine M54.6 ; BMI 40.0-44.9, adult Z68.41 and History of tobacco use Z87.891 [place] [id number] [place] [address] Sep, [place] [address] [address] Sep, Pain in thoracic spine M54.6 [place] [id number] [place] [address] Sep, [place] [id number] [address] Aug, Chronic obstructive pulmonary disease, unspecified J44.9 [facility] [id number] [place] [address] Aug, [facility] [id number] [place] [address] Aug, Pain in thoracic spine M54.6 [facility] [id number] [place] [address] Aug, Encounter for immunization Z23 [facility] [id number] [place] [address] Jul, Pain in thoracic spine M54.6 [facility] [id number] [place] [address] Jun, [facility] [id number] [place] [address] Jun, Therapeutic drug monitoring Z51.81 and Pain in thoracic spine M54.6 [facility] [id number] [place] [address] Jun, [facility] [id number] [place] [address] Jun, Pain in thoracic spine M54.6 [facility] [id number] [place] [address] May, Pain in thoracic spine M54.6 [facility] [id number] [place] [address] May, [facility] [id number] [place] [address] Apr, [facility] [address] [facility] [id number] [place] [address] Apr, Pain in thoracic spine M54.6 [facility] [id number] [place] [address] Apr, [facility] [id number] [place] [address] Apr, Medicare annual wellness visit, initial Z00.00 ; BMI 40.0-44.9, adult Z68.41 ; Chronic obstructive pulmonary disease, unspecified J44.9 ; Other chronic pain G89.29 and Essential hypertension I10 [facility] [id number] [place] [address] March, Pain in thoracic spine M54.6 [place] [id number] [place] [address] Feb, Pain in thoracic spine M54.6 [place] [id number] [place] [address] Feb, Pain in thoracic spine M54.6 ; Other chronic pain G89.29 ; Chronic obstructive pulmonary disease, unspecified J44.9 and Periumbilical hernia K42.9 [place] [id number] [place] [address] Jan, Pain in thoracic spine M54.6 [place] [id number] [place] [address] Jan, Chronic obstructive pulmonary disease, unspecified J44.9 ; Encounter for immunization Z23 ; Screening, lipid Z13.220 ; Renal insufficiency N28.9 ; Pain in thoracic spine M54.6 and Other chronic pain G89.29 [facility] [id number] [place] [address] Sep, Irritation of right eye H57.8 [facility] [id number] [place] [address] May, Chronic obstructive pulmonary disease, unspecified COPD type J44.9 [facility] [id number] [place] [address] March, [facility] [address] [address] Oct, Medicare annual wellness visit, subsequent Z00.00 ; Encounter for immunization Z23 and S/P cholecystectomy Z90.49 [place] [address] [address] Oct, [place] [address] [address] Sep, [facility] [address] [address] Aug, Wheezing R06.2 and Community acquired pneumonia J18.9 [place] [address] [address] March, Shoulder fracture, right, with routine healing, subsequent encounter S42.91XD [place] [address] [address] Feb, Shoulder fracture, right S42.91XA [place] [address] [address] Feb, Shoulder pain M25.519 [facility] [address] [address] Feb, [facility] [address] [address] Feb, Right shoulder pain M25.511 [place] [address] [address] 08 Feb, 2016 [place] [address] [address] Jan, Renal insufficiency N28.9 [place] [address] [address] 18 Dec, 2015 [place] [address] [address] Dec, Bronchitis J40 [place] [address] [address] Dec, [facility] [id number] [place] [address] Dec, [facility] [address] [address] Nov, [facility] [id number] [place] [address] Oct, Renal insufficiency N28.9 [facility] [id number] [place] [address] 11 Oct, 2015 Screening, lipid Z13.220 [place] [id number] [place] [address] 10 Oct, 2015 Chronic obstructive pulmonary disease, unspecified COPD type J44.9 ; Gastroesophageal reflux disease, esophagitis presence not specified K21.9 ; Dysthymia F34.1 and Screening, lipid Z13.220 [facility] [id number] [place] [address] Jun, [facility] [id number] [place] [address] Jun, Sleep apnea 780.57 and COPD (chronic obstructive pulmonary disease) 496 [facility] [address] [address] Apr, COPD (chronic obstructive pulmonary disease) 496 [facility] [address] [address] Feb, [facility] [address] [place] [address] Feb, [facility] [address] [place] [address] Nov, [facility] [address], [place] [address] Nov, [facility] [id number] [address] 15 Nov, 2014 [facility] [address] [id number] [place] [address] Nov, [facility] [address] [id number] [place] [address] Oct, [facility] [address] [id number] [place] [address] Oct, [facility] [address] [id number] [place] [address] Oct, [facility] [address] [id number] [place] [address] Oct, [facility] [address] [id number] [place] [address] Oct, [facility] [address] [id number] [place] [address] Oct, [facility] [address] [id number] [place] [address] Oct, [facility] [address] [id number] [place] [address] Oct, [facility] [address] [id number] [place] [address] March, [facility] [place] [facility] [address] [id number] [place] [address] March, [facility] [address] [id number] [place] [address] March, [facility] [place] [facility] [address] [id number] [place] [address] March, [facility] [address] [id number] [place] [address] Feb, [facility] [address] [id number] [place] [address] Feb, [facility] [place] [facility] [address] [id number] [place] [address] Feb, [facility] [place] [facility] [address] [id number] [place] [address] Feb, [facility] [place] [facility] [address] [id number] [place] [address] Feb, [facility] [place] [facility] [address] [id number] [place] [address] Feb, [facility] [place] [facility] [address] [id number] [place] [address] Jan, [facility] [place] [facility] [address] [id number] [place] [address] Jan, [facility] [place] [facility] [address] [id number] [place] [address] Nov, [facility] [place] [facility] [address] [id number] [place] [address] Nov, [facility] [place] [facility] [address] [id number] [place] [address] Nov, [facility] [place] [facility] [address] [id number] [place] [address] Aug, [facility] [place] [facility] [address] [id number] [place] [address] Aug, [facility] [place] [facility] [address] [id number], [place] [address] Aug, [facility] [place] [facility] [address] [id number] [place] [address] Jun, [facility] [place] [facility] [address] [id number] [place] [address] Jun, [facility] [place] [facility] [address] [id number], [place] [address] Apr, [facility] [place] [facility] [address] [id number], [place] [address] Apr, [facility] [address] [id number] [place] [address] March, [facility] [place] [facility] [address] [id number] [place] [address] Feb, [facility] [place] [facility] [address] [id number] [place] [address] Feb, [facility] [place] [facility] [address] [id number] [place] [address] Jan, [facility] [address] [id number] [place] [address] Dec, [facility] [place] [facility] [address] [id number] [place] [address] Dec, [facility] [address] [facility] [id number] [place] [address] Dec, [facility] [address] [id number] [place] [address] Nov, [facility] [address] [id number] [place] [address] Nov, [facility] [address] [facility] [id number] [place] [address] Nov, [facility] [address] [facility] [id number] [place] [address] Oct, [facility] [place] [facility] [address] [id number] [place] [address] Oct, [facility] [place] [facility] [address] [id number] [place] [address] Sep, [facility] [place] [facility] [address] [facility] [id number] [place] [address] Sep, [facility] [place] [facility] [address] [facility] [id number] [address] Aug, [facility] [place] [facility] [address] [id number] [place] [address] Jul, [facility] [place] [facility] [address] [id number] [place] [address] May, [facility] [place] [facility] [address] [id number] [place] [address] May, [facility] [place] [facility] [address] [id number] [place] [address] March, [facility] [place] [facility] [address] [id number] [place] [address] Nov, [facility] [place] [facility] [address] [id number] [place] [address] Oct, [facility] [place] [facility] [address] [id number] [place] [address] Sep, [facility] [place] [facility] [address] [id number] [place] [address] Sep, [facility] [place] [facility] [address] [id number] [place] [address] Sep, [facility] [place] [facility] [address] [id number] [place] [address] Aug, [facility] [place] [facility] [address] [id number] [place] [address] Aug, [facility] [place] [facility] [address] [id number] [place] [address] Oct, [facility] [place] [facility] [address] [id number] [place] [address] Oct, [facility] [place] [facility] [address] [id number] [place] [address] Oct, [facility] [place] [facility] [address] [id number] [place] [address] Aug, [facility] [place] [facility] [address] [id number] [place] [address] 14 Aug, 2010 [facility] [address] [facility] [id number] [place] [address] Aug, [facility] [address] [facility] [id number], [place] [address] Oct, [facility] [address] [facility] [id number], [place] [address] Sep, [facility] [address] [facility] [id number], [place] [address] Sep, [facility] [address] [facility] [id number], [place] [address] Jul, IMMUNIZATIONS No Known Immunizations SOCIAL HISTORY Never Assessed REASON FOR VISIT Pain mgmt follow up Pt in for pain managment [place] PLAN OF CARE Activity Details Follow Up 3 Months Reason:pain mgmt VITAL SIGNS Height 66 in 2018-10-10 Weight 264.6 lbs 2018-10-10 Temperature 98.2 degrees Fahrenheit 2018-10-10 Heart Rate 86 bpm 2018-10-10 Respiratory Rate 22 2018-10-10 Oximetry w/ oxygen @ 3L:90 % 2018-10-10 BMI 42.7 kg/m2 2018-10-10 Blood pressure systolic 122 mmHg 2018-10-10 Blood pressure diastolic 76 mmHg 2018-10-10 MEDICATIONS Medication Instructions Dosage Frequency Start Date End Date Duration Status Oxygen 3L Active Singulair 10 MG Orally Once a day 1 tablet in the evening 24h Active Incruse Ellipta 62.5 MCG/INH Inhalation Once a day 1 puff 24h Active Tramadol HCl 50 MG Orally 3 times a day 1 tablet 8h Jan, 28 days Active Breo Ellipta by inhalation route [address] Benavides Nov, Active Calcium + D3 600-200 MG-UNIT Orally Once a day (may take up to BID) 1 tablet with a meal Active Lisinopril 5 mg TAKE 1 TABLET BY MOUTH EVERY DAY 90 Active Ipratropium Wrights 0.02 % Inhalation 4 times a day 2.5 ml as needed 6h Aug, 30 days Active Ventolin HFA 108 (90 Base) MCG/ACT Inhalation every 4-6 hours as needed 2 puffs as needed Apr, 30 days Active Albuterol Sulfate (2.5 MG/3ML) 0.083% Inhalation 4 times a day 3 ml as needed 6h 29 Aug, 2018 30 days Active Omeprazole 20 MG TAKE 1 CAPSULE BY MOUTH EVERY DAY 90 Active RESULTS No Results PROCEDURES Procedure Date Ordered Result Body Site [facility] VISIT ESTABLISHED PATIENT Oct 10, 2018 INSTRUCTIONS MEDICATIONS ADMINISTERED No Known Medications MEDICAL (GENERAL) HISTORY Type Description Date Medical History sleep apnea Medical History emphysema Medical History heartburn Medical History broken back in two place Medical History broken right shoulder Surgical History x 3 Surgical History gallbladder Hospitalization History surgery
--- OUTSIDE RECORDS SUMMARY | 2019-06-07 07:35 | XMS REPORT ---
Author Author PATRICIA JARAMILLO Organization [facility] [place] Address [address] [place] [address] Care Team Providers Care Clinical Appeals Rn Name Role Phone PATRICIA JARAMILLO Unavailable PROBLEMS Type Condition ICD9-CM Code ZAU74-ON Code Onset Dates Condition Status SNOMED Code Problem Tobacco abuse Z72.0 Active 39336496 Problem Essential hypertension I10 Active 73747808 Problem BMI 40.0-44.9, adult Z68.41 Active 820957886 Problem S/P cholecystectomy Z90.49 Active 145199135 Problem Shoulder fracture, right S42.91XA Active 03849171 Problem Other chronic pain G89.29 Active 99598182 Problem Chronic obstructive pulmonary disease, unspecified J44.9 Active 64651823 ALLERGIES No Information ENCOUNTERS Encounter Location Date Diagnosis [place] [id number] [place] [id number] [place] [address] Oct, Pain in thoracic spine M54.6 [place] [address] [id number] [place] [address] Sep, Pain in thoracic spine M54.6 ; BMI 40.0-44.9, adult Z68.41 and History of tobacco use Z87.891 [place] [id number] [place] [address] Sep, [place] [address] [place] [id number] [place] [address] Sep, Pain in thoracic spine M54.6 [place] [address] [place] [address] [id number] [place] [address] Sep, [place] [address] [place] [address] [id number] [place] [address] Aug, Chronic obstructive pulmonary disease, unspecified J44.9 [facility] [place] [address] [facility] [id number], [place] [address] Aug, [facility] [place] [address] [facility] [id number] [place] [address] Aug, Pain in thoracic spine M54.6 [facility] [place] [address] [id number] [place] [address] Aug, Encounter for immunization Z23 [facility] [place] [address] [facility] [id number] [place] [address] Jul, Pain in thoracic spine M54.6 [facility] [place] [address] [facility] [id number] [place] [address] Jun, [facility] [place] [address] [id number] [place] [address] Jun, Therapeutic drug monitoring Z51.81 and Pain in thoracic spine M54.6 [facility] [place] [address] [place] [address] [id number] [place] [address] Jun, [facility] [place] [id number] [place] [address] Jun, Pain in thoracic spine M54.6 [facility] [place] [address] [place] [address] [id number] [place] [address] May, Pain in thoracic spine M54.6 [facility] [place] [address] [place] [address] [id number] [place] [address] May, [facility] [place] [address] [facility] [id number] [place] [address] Apr, [facility] [place] [address] [facility] [id number] [place] [address] Apr, Pain in thoracic spine M54.6 [facility] [place] [address] [place] [id number] [place] [address] Apr, [facility] [place] [address] [place] [address] [id number] [place] [address] Apr, Medicare annual wellness visit, initial Z00.00 ; BMI 40.0-44.9, adult Z68.41 ; Chronic obstructive pulmonary disease, unspecified J44.9 ; Other chronic pain G89.29 and Essential hypertension I10 [place] [address] [place] [address] [id number] [place] [address] March, Pain in thoracic spine M54.6 [place] [address] [address] Feb, Pain in thoracic spine M54.6 [place] [address] [address] Feb, Pain in thoracic spine M54.6 ; Other chronic pain G89.29 ; Chronic obstructive pulmonary disease, unspecified J44.9 and Periumbilical hernia K42.9 [place] [address] [address] Jan, Pain in thoracic spine M54.6 [place] [address] [place] [id number] [place] [address] Jan, Chronic obstructive pulmonary disease, unspecified J44.9 ; Encounter for immunization Z23 ; Screening, lipid Z13.220 ; Renal insufficiency N28.9 ; Pain in thoracic spine M54.6 and Other chronic pain G89.29 [facility] [id number] [place] [address] Sep, Irritation of right eye H57.8 [facility] [place] [address] [place] [id number] [place] [address] May, Chronic obstructive pulmonary disease, unspecified COPD type J44.9 [facility] [place] [address] [place] [id number] [place] [address] March, [facility] [place] [address] [place] [id number] [place] [address] Oct, Medicare annual wellness visit, subsequent Z00.00 ; Encounter for immunization Z23 and S/P cholecystectomy Z90.49 [facility] [place] [address] [address] Oct, [place] [address] [address] Sep, [facility] [address] [address] Aug, Wheezing R06.2 and Community acquired pneumonia J18.9 [place] [address] [address] March, Shoulder fracture, right, with routine healing, subsequent encounter S42.91XD [place] [address] [address] Feb, Shoulder fracture, right S42.91XA [place] [address] [address] Feb, Shoulder pain M25.519 [facility] [address] [address] Feb, [facility] [address] [address] Feb, Right shoulder pain M25.511 [place] [address] [address] Feb, [place] [address] [address] Jan, Renal insufficiency N28.9 [place] [address] [address] Dec, [place] [address] [address] Dec, Bronchitis J40 [place] [address] [address] Dec, [place] [address] [address] Dec, [facility] [place] [address] [place] [address] [id number] [place] [address] Nov, [facility] [place] [address] [place] [id number] [place] [address] Oct, Renal insufficiency N28.9 [facility] [place] [address] [place] [id number] [place] [address] 11 Oct, 2015 Screening, lipid Z13.220 [facility] [place] [address] [place] [id number] [place] [address] 10 Oct, 2015 Chronic obstructive pulmonary disease, unspecified COPD type J44.9 ; Gastroesophageal reflux disease, esophagitis presence not specified K21.9 ; Dysthymia F34.1 and Screening, lipid Z13.220 [place] [address] [place] [id number] [place] [address] Jun, [facility] [place] [address] [place] [id number] [place] [address] Jun, Sleep apnea 780.57 and COPD (chronic obstructive pulmonary disease) [address] [place] [address] [place] [id number] [place] [address] Apr, COPD (chronic obstructive pulmonary disease) [address] [place] [id number] [place] [address] Feb, [facility] [place] [address] [place] [id number] [place] [address] Feb, [facility] [place] [address] [place] [id number] [place] [address] Nov, [facility] [place] [address] [place] [id number] [place] [address] Nov, [facility] [place] [id number] [place] [address] Nov, [facility] [place] [address] [facility] [id number] [place] [address] 15 Nov, 2014 [facility] [address] [id number] [place] [address] Oct, [facility] [place] [facility] [address] [id number] [place] [address] Oct, [facility] [place] [facility] [address] [id number] [place] [address] Oct, [facility] [place] [facility] [address] [id number] [place] [address] Oct, [facility] [place] [facility] [address] [id number] [place] [address] Oct, [facility] [place] [facility] [address] [id number] [place] [address] Oct, [facility] [place] [facility] [address] [id number] [place] [address] Oct, [facility] [address] [id number] [place] [address] Oct, [facility] [place] [facility] [address] [id number] [place] [address] March, [facility] [place] [facility] [address] [id number] [place] [address] March, [facility] [place] [facility] [address] [id number] [place] [address] March, [facility] [place] [facility] [address] [id number] [place] [address] March, [facility] [place] [facility] [address] [id number] [place] [address] Feb, [facility] [place] [facility] [address] [id number] [place] [address] Feb, [facility] [place] [facility] [address] [id number] [place] [address] Feb, [facility] [place] [facility] [address] [id number] [place] [address] Feb, [facility] [place] [facility] [address] [id number] [place] [address] Feb, [facility] [place] [facility] [address] [id number] [place] [address] Feb, [facility] [place] [facility] [address] [id number] [place] [address] Jan, [facility] [place] [facility] [address] [id number] [place] [address] Jan, [facility] [place] [facility] [address] [id number] [place] [address] Nov, [facility] [place] [facility] [address] [id number] [place] [address] Nov, [facility] [place] [facility] [address] [id number] [place] [address] Nov, [facility] [place] [facility] [address] [id number] [place] [address] Aug, [facility] [place] [facility] [address] [id number] [place] [address] Aug, [facility] [place] [facility] [address] [id number] [place] [address] Aug, [facility] [place] [facility] [address] [id number], [place] [address] Jun, [facility] [place] [facility] [address] [id number] [place] [address] Jun, [facility] [place] [facility] [address] [id number] [place] [address] Apr, [facility] [place] [facility] [address] [id number] [place] [address] Apr, [facility] [place] [facility] [address] [id number] [place] [address] March, [facility] [address] [id number] [place] [address] Feb, [facility] [place] [facility] [address] [id number] [place] [address] Feb, [facility] [place] [facility] [address] [id number] [place] [address] Jan, [facility] [place] [facility] [address] [id number] [place] [address] Dec, [facility] [place] [facility] [address] [id number] [place] [address] Dec, [facility] [place] [facility] [address] [id number] [place] [address] Dec, [facility] [address] [id number] [place] [address] Nov, [facility] [place] [facility] [address] [id number] [place] [address] Nov, [facility] [place] [facility] [address] [id number] [place] [address] Nov, [facility] [address] [id number] [place] [address] Oct, [facility] [place] [facility] [address] [id number] [place] [address] Oct, [facility] [place] [facility] [address] [id number] [place] [address] Sep, [facility] [place] [facility] [address] [id number] [place] [address] Sep, [facility] [place] [facility] [address] [id number] [place] [address] Aug, [facility] [place] [facility] [address] [id number] [place] [address] Jul, [facility] [place] [facility] [address] [id number] [place] [address] May, [facility] [place] [facility] [address] [id number] [place] [address] May, [facility] [place] [facility] [address] [id number] [place] [address] March, [facility] [place] [facility] [address] [id number] [place] [address] Nov, [facility] [address] [id number] [place] [address] Oct, [facility] [place] [facility] [address] [id number] [place] [address] Sep, [facility] [address] [id number] [place] [address] Sep, [facility] [address] [id number] [place] [address] Sep, [facility] [place] [facility] [address] [id number] [place] [address] Aug, [facility] [place] [facility] [address] [id number] [place] [address] Aug, [facility] [place] [facility] [address] [id number] [place] [address] Oct, [facility] [place] [facility] [address] [id number] [place] [address] Oct, [facility] [place] [facility] [address] [id number] [place] [address] Oct, [facility] [place] [facility] [address] [id number] [place] [address] 18 Aug, 2010 [facility] [place] [facility] [address] [id number] [place] [address] 14 Aug, 2010 [facility] [place] [facility] [address] [id number] [place] [address] Aug, [facility] [place] [address] [facility] [id number], [place] [address] Oct, [facility] [place] [address] [facility] [id number], [place] [address] Sep, [facility] [place] [address] [facility] [id number], [place] [address] Sep, [facility] [place] [address] [facility] [id number], [place] [address] Jul, IMMUNIZATIONS No Known Immunizations SOCIAL HISTORY Never Assessed REASON FOR VISIT Controlled Med Refill 10/24 PLAN OF CARE VITAL SIGNS MEDICATIONS Medication Instructions Dosage Frequency Start Date End Date Duration Status Hydrocodone-Acetaminophen 5-325 MG Orally 3 times a day 1 tablet as needed 8h Oct, 28 days Active RESULTS No Results PROCEDURES No Known procedures INSTRUCTIONS MEDICATIONS ADMINISTERED No Known Medications MEDICAL (GENERAL) HISTORY Type Description Date Medical History sleep apnea Medical History emphysema Medical History heartburn Medical History broken back in two place Medical History broken right shoulder Surgical History x 3 Surgical History gallbladder Hospitalization History surgery
--- OUTSIDE RECORDS SUMMARY | 2019-06-07 07:36 | XMS REPORT ---
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 Role Phone PATRICIA JARAMILLO Unavailable PROBLEMS Type Condition ICD9-CM Code EEC51-MP Code Onset Dates Condition Status SNOMED Code Problem Tobacco abuse Z72.0 Active 59067913 Problem Essential hypertension I10 Active 73216738 Problem BMI 40.0-44.9, adult Z68.41 Active 943545135 Problem S/P cholecystectomy Z90.49 Active 182059414 Problem Shoulder fracture, right S42.91XA Active 99298062 Problem Other chronic pain G89.29 Active 51910175 Problem Chronic obstructive pulmonary disease, unspecified J44.9 Active 12766639 ALLERGIES No Information ENCOUNTERS Encounter Location Date Diagnosis [place] [id number] [place] [address] Sep, [place] [id number] [address] Sep, Pain in thoracic spine M54.6 [facility] [id number] [place] [address] Sep, [facility] [id number] [place] [address] Aug, Chronic obstructive pulmonary disease, unspecified J44.9 [facility] [id number] [place] [address] Aug, [facility] [id number] [place] [address] Aug, Pain in thoracic spine M54.6 [facility] [id number] [place] [address] Aug, Encounter for immunization Z23 [facility] [id number] [address] Jul, Pain in thoracic spine M54.6 [facility] [id number] [address] Jun, [facility] [id number] [address] Jun, Therapeutic drug monitoring Z51.81 and Pain in thoracic spine M54.6 [facility] [id number] [place] [address] Jun, [facility] [id number] [address] Jun, Pain in thoracic spine M54.6 [facility] [id number] [address] May, Pain in thoracic spine M54.6 [facility] [id number] [place] [address] May, [facility] [id number] [place] [address] Apr, [facility] [id number] [place] [address] Apr, Pain in thoracic spine M54.6 [facility] [id number] [place] [address] Apr, [facility] [id number] [place] [address] Apr, Medicare annual wellness visit, initial Z00.00 ; BMI 40.0-44.9, adult Z68.41 ; Chronic obstructive pulmonary disease, unspecified J44.9 ; Other chronic pain G89.29 and Essential hypertension I10 [facility] [id number] [address] March, Pain in thoracic spine M54.6 [facility] [address] [address] Feb, Pain in thoracic spine M54.6 [place] [address] [address] Feb, Pain in thoracic spine M54.6 ; Other chronic pain G89.29 ; Chronic obstructive pulmonary disease, unspecified J44.9 and Periumbilical hernia K42.9 [place] [address] [address] Jan, Pain in thoracic spine M54.6 [place] [address] [address] Jan, Chronic obstructive pulmonary disease, unspecified J44.9 ; Encounter for immunization Z23 ; Screening, lipid Z13.220 ; Renal insufficiency N28.9 ; Pain in thoracic spine M54.6 and Other chronic pain G89.29 [facility] [address] [address] Sep, Irritation of right eye H57.8 [place] [address] [address] May, Chronic obstructive pulmonary disease, unspecified COPD type J44.9 [place] [address] [address] March, [place] [address] [address] Oct, Medicare annual wellness visit, subsequent Z00.00 ; Encounter for immunization Z23 and S/P cholecystectomy Z90.49 [place] [address] [address] Oct, [place] [address] [address] Sep, [facility] [address] [address] Aug, Wheezing R06.2 and Community acquired pneumonia J18.9 [facility] [id number] [place] [address] March, Shoulder fracture, right, with routine healing, subsequent encounter S42.91XD [facility] [id number] [place] [address] Feb, Shoulder fracture, right S42.91XA [facility] [address] [address] Feb, Shoulder pain M25.519 [facility] [address] [address] Feb, [facility] [address] [address] Feb, Right shoulder pain M25.511 [place] [address] [address] Feb, [facility] [id number] [place] [address] Jan, Renal insufficiency N28.9 [facility] [address] [address] Dec, [facility] [id number] [place] [address] Dec, Bronchitis J40 [facility] [id number] [place] [address] Dec, [facility] [id number] [place] [address] Dec, [facility] [address] [address] Nov, [facility] [id number] [place] [address] Oct, Renal insufficiency N28.9 [facility] [id number] [address] Oct, Screening, lipid Z13.220 [facility] [address] [address] Oct, Chronic obstructive pulmonary disease, unspecified COPD type J44.9 ; Gastroesophageal reflux disease, esophagitis presence not specified K21.9 ; Dysthymia F34.1 and Screening, lipid Z13.220 [facility] [address] [address] Jun, [facility] [id number] [place] [address] Jun, Sleep apnea 780.57 and COPD (chronic obstructive pulmonary disease) 496 [facility] [id number] [place] [address] Apr, COPD (chronic obstructive pulmonary disease) [address] [facility] [id number] [place] [address] Feb, [facility] [id number] [place] [address] Feb, [facility] [id number] [place] [address] Nov, [facility] [id number] [place] [address] Nov, [facility] [id number] [place] [address] Nov, [facility] [id number] [place] [address] Nov, [facility] [id number] [place] [address] Oct, [facility] [id number] [place] [address] Oct, [facility] [id number] [place] [address] [place] [address] Oct, [facility] [place] [facility] [address] [id number] [place] [address] Oct, [facility] [place] [facility] [address] [id number] [place] [address] Oct, [facility] [place] [facility] [address] [id number] [place] [address] Oct, [facility] [place] [facility] [address] [id number] [place] [address] Oct, [facility] [place] [facility] [address] [id number] [place] [address] Oct, [facility] [place] [facility] [address] [id number] [place] [address] March, [facility] [place] [facility] [address] [id number] [place] [address] March, [facility] [place] [facility] [address] [id number] [place] [address] March, [facility] [place] [facility] [address] [id number] [place] [address] March, [facility] [place] [facility] [address] [id number] [place] [address] Feb, [facility] [place] [facility] [address] [id number] [place] [address] Feb, [facility] [place] [facility] [address] [id number] [place] [address] Feb, [facility] [place] [facility] [address] [id number] [place] [address] Feb, [facility] [place] [facility] [address] [id number] [place] [address] Feb, [facility] [place] [facility] [address] [id number] [place] [address] Feb, [facility] [place] [facility] [address] [id number] [place] [address] 10 Jan, 2014 [facility] [place] [facility] [address] [id number] [place] [address] 10 Jan, 2014 [facility] [place] [facility] [address] [id number] [place] [address] Nov, [facility] [place] [facility] [address] [id number] [place] [address] Nov, [facility] [place] [facility] [address] [id number] [place] [address] Nov, [facility] [place] [facility] [address] [id number] [place] [address] Aug, [facility] [place] [facility] [address] [id number] [place] [address] Aug, [facility] [place] [facility] [address] [id number] [place] [address] Aug, [facility] [place] [facility] [address] [id number] [place] [address] Jun, [facility] [place] [facility] [address] [id number] [place] [address] Jun, [facility] [place] [facility] [address] [id number] [place] [address] Apr, [facility] [place] [facility] [address] [id number] [place] [address] Apr, [facility] [place] [facility] [address] [id number] [place] [address] March, [facility] [place] [facility] [address] [id number] [place] [address] Feb, [facility] [place] [facility] [address] [id number] [place] [address] Feb, [facility] [place] [facility] [address] [id number] [place] [address] Jan, [facility] [address] [id number] [place] [address] Dec, [facility] [place] [facility] [address] [id number] [place] [address] Dec, [facility] [place] [facility] [address] [id number] [place] [address] Dec, [facility] [place] [facility] [address] [id number] [place] [address] Nov, [facility] [place] [facility] [address] [id number] [place] [address] Nov, [facility] [place] [facility] [address] [id number] [place] [address] Nov, [facility] [place] [facility] [address] [id number] [place] [address] Oct, [facility] [place] [facility] [address] [id number] [place] [address] Oct, [facility] [place] [facility] [address] [id number] [place] [address] Sep, [facility] [place] [facility] [address] [id number] [place] [address] Sep, [facility] [place] [facility] [address] [id number] [address] Aug, [facility] [place] [facility] [address] [id number] [place] [address] Jul, [facility] [place] [facility] [address] [id number] [place] [address] May, [facility] [place] [facility] [address] [id number] [place] [address] May, [facility] [place] [facility] [address] [id number] [place] [address] March, [facility] [place] [facility] [address] [id number] [place] [address] 16 Nov, 2011 [facility] [address] [id number] [place] [address] Oct, [facility] [place] [facility] [address] [id number] [place] [address] 11 Sep, 2011 [facility] [place] [facility] [address] [id number] [place] [address] 10 Sep, 2011 [facility] [place] [facility] [address] [id number] [place] [address] 10 Sep, 2011 [facility] [place] [facility] [address] [id number] [place] [address] 12 Aug, 2011 [facility] [place] [facility] [address] [id number] [place] [address] Aug, [facility] [place] [facility] [address] [id number] [place] [address] 21 Oct, 2010 [facility] [address] [id number] [place] [address] 16 Oct, 2010 [facility] [place] [facility] [address] [id number] [place] [address] 16 Oct, 2010 [facility] [place] [facility] [address] [id number] [place] [address] 18 Aug, 2010 [facility] [place] [facility] [address] [id number] [place] [address] 14 Aug, 2010 [facility] [place] [facility] [address] [id number] [place] [address] 14 Aug, 2010 [facility] [place] [facility] [address] [id number] [place] [address] 02 Oct, 2009 [facility] [place] [facility] [address] [id number] [place] [address] Sep, [facility] [place] [facility] [address] [id number] [place] [address] Sep, [facility] [address] [facility] [id number] [place] [address] Jul, IMMUNIZATIONS No Known Immunizations SOCIAL HISTORY Never Assessed REASON FOR VISIT Controlled Med Refill PLAN OF CARE VITAL SIGNS MEDICATIONS Medication Instructions Dosage Frequency Start Date End Date Duration Status Tramadol HCl 50 MG Orally 3 times a day 1 tablet 8h Jan, 28 days Active RESULTS No Results PROCEDURES No Known procedures INSTRUCTIONS MEDICATIONS ADMINISTERED No Known Medications MEDICAL (GENERAL) HISTORY Type Description Date Medical History sleep apnea Medical History emphysema Medical History heartburn Medical History broken back in two place Medical History broken right shoulder Surgical History x 3 Surgical History gallbladder Hospitalization History surgery
--- OUTSIDE RECORDS SUMMARY | 2019-06-07 07:36 | XMS REPORT ---
Author Author PATRICIA JARAMILLO Organization [facility] Address [address] [place] [address] Care Team Providers Care Denture Contour Wire Specialist Name Role Phone PATRICIA JARAMILLO Unavailable PROBLEMS Type Condition ICD9-CM Code ILM47-AT Code Onset Dates Condition Status SNOMED Code Problem Tobacco abuse Z72.0 Active 17764443 Problem Essential hypertension I10 Active 45372931 Problem BMI 40.0-44.9, adult Z68.41 Active 395067908 Problem S/P cholecystectomy Z90.49 Active 415723939 Problem Shoulder fracture, right S42.91XA Active 96847317 Problem Other chronic pain G89.29 Active 86932784 Problem Chronic obstructive pulmonary disease, unspecified J44.9 Active [id number] ALLERGIES No Information ENCOUNTERS Encounter Location Date Diagnosis [facility] [id number] [place] [address] Sep, [facility] [id number] [place] [address] Sep, [facility] [id number] [place] [address] Sep, Pain in thoracic spine M54.6 [facility] [id number] [place] [address] Sep, [facility] [id number] [place] [address] Aug, Chronic obstructive pulmonary disease, unspecified J44.9 [facility] [id number] [place] [address] Aug, [facility] [id number] [place] [address] Aug, Pain in thoracic spine M54.6 [facility] [address], [place] [address] Aug, Encounter for immunization Z23 [facility] [id number] [place] [address] 14 Jul, 2018 Pain in thoracic spine M54.6 [facility] [id number] [place] [address] Jun, [facility] [id number] [place] [address] Jun, Therapeutic drug monitoring Z51.81 and Pain in thoracic spine M54.6 [facility] [id number] [place] [address] Jun, [facility] [id number] [place] [address] Jun, Pain in thoracic spine M54.6 [facility] [id number] [place] [address] May, Pain in thoracic spine M54.6 [facility] [id number] [place] [address] May, [facility] [id number] [place] [address] Apr, [facility] [id number] [place] [address] Apr, Pain in thoracic spine M54.6 [facility] [id number] [place] [address] Apr, [facility] [id number] [place] [address] Apr, Medicare annual wellness visit, initial Z00.00 ; BMI 40.0-44.9, adult Z68.41 ; Chronic obstructive pulmonary disease, unspecified J44.9 ; Other chronic pain G89.29 and Essential hypertension I10 [facility] [id number] [place] [address] March, Pain in thoracic spine M54.6 [facility] [id number] [place] [address] Feb, Pain in thoracic spine M54.6 [facility] [id number] [place] [address] Feb, Pain in thoracic spine M54.6 ; Other chronic pain G89.29 ; Chronic obstructive pulmonary disease, unspecified J44.9 and Periumbilical hernia K42.9 [place] [address] [address] Jan, Pain in thoracic spine M54.6 [place] [id number] [place] [address] Jan, Chronic obstructive pulmonary disease, unspecified J44.9 ; Encounter for immunization Z23 ; Screening, lipid Z13.220 ; Renal insufficiency N28.9 ; Pain in thoracic spine M54.6 and Other chronic pain G89.29 [facility] [id number] [place] [address] Sep, Irritation of right eye H57.8 [place] [id number] [place] [address] May, Chronic obstructive pulmonary disease, unspecified COPD type J44.9 [place] [id number] [place] [address] March, [place] [id number] [place] [address] Oct, Medicare annual wellness visit, subsequent Z00.00 ; Encounter for immunization Z23 and S/P cholecystectomy Z90.49 [facility] [id number] [place] [address] Oct, [place] [address] [address] Sep, [facility] [id number] [place] [address] Aug, Wheezing R06.2 and Community acquired pneumonia J18.9 [facility] [id number] [place] [address] March, Shoulder fracture, right, with routine healing, subsequent encounter S42.91XD [facility] [address] [address] Feb, Shoulder fracture, right S42.91XA [facility] [address] [address] Feb, Shoulder pain M25.519 [facility] [address] [address] Feb, [facility] [address] [address] Feb, Right shoulder pain M25.511 [facility] [address] [address] Feb, [facility] [address] [address] Jan, Renal insufficiency N28.9 [facility] [id number] [place] [address] Dec, [facility] [address] [address] Dec, Bronchitis J40 [facility] [id number] [place] [address] Dec, [facility] [address] [address] Dec, [facility] [id number] [place] [address] Nov, [facility] [id number] [place] [address] 15 Oct, 2015 Renal insufficiency N28.9 [facility] [address] [address] 11 Oct, 2015 Screening, lipid Z13.220 [facility] [id number] [place] [address] 10 Oct, 2015 Chronic obstructive pulmonary disease, unspecified COPD type J44.9 ; Gastroesophageal reflux disease, esophagitis presence not specified K21.9 ; Dysthymia F34.1 and Screening, lipid Z13.220 [facility] [id number] [place] [address] Jun, [facility] [address] [address] Jun, Sleep apnea 780.57 and COPD (chronic obstructive pulmonary disease) 496 [facility] [address] [address] Apr, COPD (chronic obstructive pulmonary disease) 496 [facility] [id number] [place] [address] 14 Feb, 2015 [facility] [id number] [place] [address] Feb, [facility] [id number] [place] [address] Nov, [facility] [id number] [place] [address] Nov, [facility] [id number] [place] [address] Nov, [facility] [id number] [place] [address] Nov, [facility] [id number] [place] [address] 18 Oct, 2014 [facility] [id number] [place] [address] [place] [address] Oct, [facility] [place] [facility] [address] [id number] [place] [address] Oct, [facility] [place] [facility] [address] [id number] [place] [address] Oct, [facility] [place] [facility] [address] [id number] [place] [address] Oct, [facility] [place] [facility] [address] [id number] [place] [address] Oct, [facility] [place] [facility] [address] [id number] [place] [address] Oct, [facility] [place] [facility] [address] [id number] [place] [address] Oct, [facility] [place] [facility] [address] [id number] [place] [address] March, [facility] [place] [facility] [address] [id number] [place] [address] March, [facility] [place] [facility] [address] [id number] [place] [address] March, [facility] [place] [facility] [address] [id number] [place] [address] March, [facility] [place] [facility] [address] [id number] [place] [address] Feb, [facility] [place] [facility] [address] [id number] [place] [address] Feb, [facility] [place] [facility] [address] [id number] [place] [address] Feb, [facility] [place] [facility] [address] [id number] [place] [address] Feb, [facility] [place] [facility] [address] [id number] [place] [address] Feb, [facility] [place] [facility] [address] [id number] [place] [address] Feb, [facility] [place] [facility] [address] [id number] [place] [address] Jan, [facility] [place] [facility] [address] [id number] [place] [address] 10 Jan, 2014 [facility] [place] [facility] [address] [id number] [place] [address] Nov, [facility] [place] [facility] [address] [id number] [place] [address] Nov, [facility] [place] [facility] [address] [id number] [place] [address] Nov, [facility] [place] [facility] [address] [id number] [place] [address] Aug, [facility] [place] [facility] [address] [id number] [place] [address] Aug, [facility] [place] [facility] [address] [id number] [place] [address] Aug, [facility] [place] [facility] [address] [id number] [place] [address] Jun, [facility] [place] [facility] [address] [id number] [place] [address] Jun, [facility] [place] [facility] [address] [id number] [place] [address] Apr, [facility] [place] [facility] [address] [id number] [place] [address] Apr, [facility] [place] [facility] [address] [id number] [place] [address] March, [facility] [place] [facility] [address] [id number] [place] [address] Feb, [facility] [place] [facility] [address] [id number] [place] [address] Feb, [facility] [address] [id number] [place] [address] Jan, [facility] [place] [facility] [address] [id number] [place] [address] Dec, [facility] [place] [facility] [address] [id number] [place] [address] Dec, [facility] [place] [facility] [address] [id number] [place] [address] Dec, [facility] [place] [facility] [address] [id number] [place] [address] Nov, [facility] [place] [facility] [address] [id number] [place] [address] Nov, [facility] [place] [facility] [address] [id number] [place] [address] Nov, [facility] [place] [facility] [address] [id number] [place] [address] Oct, [facility] [place] [facility] [address] [id number] [place] [address] Oct, [facility] [place] [facility] [address] [id number] [place] [address] Sep, [facility] [place] [facility] [address] [id number] [address] Sep, [facility] [place] [facility] [address] [id number], [place] [address] Aug, [facility] [place] [facility] [address] [id number] [place] [address] Jul, [facility] [place] [facility] [address] [id number] [place] [address] May, [facility] [place] [facility] [address] [id number] [place] [address] May, [facility] [place] [facility] [address] [id number] [place] [address] March, [facility] [address] [id number] [place] [address] Nov, [facility] [place] [facility] [address] [id number] [place] [address] Oct, [facility] [address] [id number] [place] [address] Sep, [facility] [place] [facility] [address] [id number] [place] [address] Sep, [facility] [address] [id number] [place] [address] Sep, [facility] [place] [facility] [address] [id number] [place] [address] Aug, [facility] [place] [facility] [address] [id number] [place] [address] Aug, [facility] [address] [id number] [place] [address] Oct, [facility] [place] [facility] [address] [id number] [place] [address] 16 Oct, 2010 [facility] [address] [id number] [place] [address] 16 Oct, 2010 [facility] [place] [facility] [address] [id number] [place] [address] 18 Aug, 2010 [facility] [place] [facility] [address] [id number] [place] [address] 14 Aug, 2010 [facility] [place] [facility] [address] [id number] [place] [address] 14 Aug, 2010 [facility] [place] [facility] [address] [id number] [place] [address] 02 Oct, 2009 [facility] [place] [facility] [address] [id number] [place] [address] Sep, [facility] [address] [facility] [id number] [place] [address] Sep, [facility] [address] [facility] [id number] [place] [address] Jul, IMMUNIZATIONS No Known Immunizations SOCIAL HISTORY Never Assessed REASON FOR VISIT refill PLAN OF CARE VITAL SIGNS MEDICATIONS Medication Instructions Dosage Frequency Start Date End Date Duration Status Lisinopril 5 mg TAKE 1 TABLET BY MOUTH EVERY DAY 90 Active RESULTS No Results PROCEDURES No Known procedures INSTRUCTIONS MEDICATIONS ADMINISTERED No Known Medications MEDICAL (GENERAL) HISTORY Type Description Date Medical History sleep apnea Medical History emphysema Medical History heartburn Medical History broken back in two place Medical History broken right shoulder Surgical History x 3 Surgical History gallbladder Hospitalization History surgery
--- OUTSIDE RECORDS SUMMARY | 2019-06-07 07:36 | XMS REPORT ---
Author Author PATRICIA JARAMILLO Organization [facility] Address [address] [place] [address] Care Team Providers Care Reduction Furnace Operator Name Role Phone PATRICIA JARAMILLO Unavailable PROBLEMS Type Condition ICD9-CM Code MBF41-ZP Code Onset Dates Condition Status SNOMED Code Problem Tobacco abuse Z72.0 Active 87713583 Problem Essential hypertension I10 Active 79066323 Problem BMI 40.0-44.9, adult Z68.41 Active 207918425 Problem S/P cholecystectomy Z90.49 Active 981213117 Problem Shoulder fracture, right S42.91XA Active 72794800 Problem Other chronic pain G89.29 Active 64299791 Problem Chronic obstructive pulmonary disease, unspecified J44.9 Active 41970757 ALLERGIES No Information ENCOUNTERS Encounter Location Date Diagnosis [place] [address] [address] Sep, [place] [address] [address] Sep, [facility] [address] [address] Aug, Chronic obstructive pulmonary disease, unspecified J44.9 [facility] [address] [place] [id number] [place] [address] Aug, [facility] [address] [address] Aug, Pain in thoracic spine M54.6 [facility] [address] [address] Aug, Encounter for immunization Z23 [place] [address] [address] Jul, Pain in thoracic spine M54.6 [facility] [address] [address] Jun, [facility] [address] [place] [id number] [place] [address] Jun, Therapeutic drug monitoring Z51.81 and Pain in thoracic spine M54.6 [facility] [address] [place] [id number] [place] [address] Jun, [facility] [address] [facility] [id number] [place] [address] Jun, Pain in thoracic spine M54.6 [facility] [address] [place] [id number] [place] [address] May, Pain in thoracic spine M54.6 [facility] [address] [place] [id number] [place] [address] May, [facility] [address] [place] [id number] [place] [address] Apr, [facility] [address] [place] [id number] [place] [address] Apr, Pain in thoracic spine M54.6 [facility] [id number] [place] [address] Apr, [facility] [address] [place] [id number] [place] [address] Apr, Medicare annual wellness visit, initial Z00.00 ; BMI 40.0-44.9, adult Z68.41 ; Chronic obstructive pulmonary disease, unspecified J44.9 ; Other chronic pain G89.29 and Essential hypertension I10 [facility] [address] [place] [id number] [place] [address] March, Pain in thoracic spine M54.6 [facility] [address] [address] Feb, Pain in thoracic spine M54.6 [facility] [address] [place] [id number] [place] [address] Feb, Pain in thoracic spine M54.6 ; Other chronic pain G89.29 ; Chronic obstructive pulmonary disease, unspecified J44.9 and Periumbilical hernia K42.9 [place] [address] [address] Jan, Pain in thoracic spine M54.6 [facility] [address] [address] 05 Jan, 2018 Chronic obstructive pulmonary disease, unspecified J44.9 ; Encounter for immunization Z23 ; Screening, lipid Z13.220 ; Renal insufficiency N28.9 ; Pain in thoracic spine M54.6 and Other chronic pain G89.29 [facility] [address] [address] Sep, Irritation of right eye H57.8 [place] [address] [address] May, Chronic obstructive pulmonary disease, unspecified COPD type J44.9 [place] [address] [address] March, [place] [address] [address] Oct, Medicare annual wellness visit, subsequent Z00.00 ; Encounter for immunization Z23 and S/P cholecystectomy Z90.49 [place] [address] [place] [id number] [place] [address] Oct, [place] [address] [address] Sep, [facility] [address] [address] Aug, Wheezing R06.2 and Community acquired pneumonia J18.9 [place] [address] [address] March, Shoulder fracture, right, with routine healing, subsequent encounter S42.91XD [facility] [address] [address] Feb, Shoulder fracture, right S42.91XA [facility] [address] [place] [id number] [place] [address] Feb, Shoulder pain M25.519 [facility] [address] [address] Feb, [facility] [address] [place] [id number] [place] [address] Feb, Right shoulder pain M25.511 [facility] [address] [place] [id number] [place] [address] Feb, [facility] [address] [address] Jan, Renal insufficiency N28.9 [facility] [address] [place] [id number] [place] [address] Dec, [facility] [address] [address] Dec, Bronchitis J40 [facility] [address] [address] Dec, [facility] [address] [place] [id number] [place] [address] Dec, [facility] [address] [place] [id number] [place] [address] Nov, [facility] [address] [address] Oct, Renal insufficiency N28.9 [facility] [address] [place] [id number] [place] [address] Oct, Screening, lipid Z13.220 [facility] [address] [place] [id number] [place] [address] 10 Oct, 2015 Chronic obstructive pulmonary disease, unspecified COPD type J44.9 ; Gastroesophageal reflux disease, esophagitis presence not specified K21.9 ; Dysthymia F34.1 and Screening, lipid Z13.220 [facility] [address] [place] [id number] [place] [address] Jun, [facility] [address] [address] Jun, Sleep apnea 780.57 and COPD (chronic obstructive pulmonary disease) 496 [facility] [address] [address] Apr, COPD (chronic obstructive pulmonary disease) 496 [facility] [address] [place] [id number] [place] [address] Feb, [facility] [address] [address] Feb, [facility] [address] [place] [id number] [place] [address] Nov, [facility] [address] [place] [id number] [place] [address] Nov, [facility] [address] [place] [id number] [place] [address] Nov, [facility] [address] [place] [id number] [place] [address] Nov, [facility] [address] [place] [id number] [place] [address] Oct, [facility] [address] [place] [id number] [place] [address] Oct, [facility] [address] [place] [id number] [place] [address] 17 Oct, 2014 [facility] [address] [place] [id number] [place] [address] Oct, [facility] [place] [facility] [address] [id number] [place] [address] Oct, [facility] [place] [facility] [address] [id number] [place] [address] Oct, [facility] [place] [facility] [address] [id number] [place] [address] Oct, [facility] [place] [facility] [address] [id number] [place] [address] Oct, [facility] [place] [facility] [address] [id number] [place] [address] March, [facility] [place] [facility] [address] [id number] [place] [address] March, [facility] [place] [facility] [address] [id number] [place] [address] March, [facility] [place] [facility] [address] [id number] [place] [address] March, [facility] [place] [facility] [address] [id number] [place] [address] Feb, [facility] [place] [facility] [address] [id number] [place] [address] Feb, [facility] [place] [facility] [address] [id number] [place] [address] Feb, [facility] [place] [facility] [address] [id number] [address] Feb, [facility] [place] [facility] [address] [id number] [place] [address] Feb, [facility] [place] [facility] [address] [id number] [place] [address] Feb, [facility] [place] [facility] [address] [id number] [place] [address] Jan, [facility] [place] [facility] [address] [id number] [place] [address] Jan, [facility] [address] [id number] [place] [address] Nov, [facility] [place] [facility] [address] [id number] [place] [address] Nov, [facility] [address] [id number] [place] [address] Nov, [facility] [place] [facility] [address] [id number] [place] [address] Aug, [facility] [address] [id number] [place] [address] Aug, [facility] [place] [facility] [address] [id number] [place] [address] Aug, [facility] [address] [id number] [place] [address] Jun, [facility] [address] [id number] [place] [address] Jun, [facility] [place] [facility] [address] [id number] [place] [address] Apr, [facility] [place] [facility] [address] [id number] [place] [address] Apr, [facility] [place] [facility] [address] [id number] [place] [address] March, [facility] [place] [facility] [address] [id number] [place] [address] Feb, [facility] [place] [facility] [address] [id number] [place] [address] Feb, [facility] [place] [facility] [address] [id number] [place] [address] Jan, [facility] [place] [facility] [address] [id number] [place] [address] Dec, [facility] [place] [facility] [address] [id number] [place] [address] Dec, [facility] [place] [facility] [address] [id number] [place] [address] Dec, [facility] [place] [facility] [address] [id number] [place] [address] Nov, [facility] [place] [facility] [address] [id number] [place] [address] Nov, [facility] [place] [facility] [address] [id number] [place] [address] Nov, [facility] [place] [facility] [address] [id number] [place] [address] Oct, [facility] [place] [facility] [address] [id number] [place] [address] Oct, [facility] [place] [facility] [address] [id number], [place] [address] Sep, [facility] [place] [facility] [address] [id number] [place] [address] Sep, [facility] [place] [facility] [address] [id number], [place] [address] Aug, [facility] [place] [facility] [address] [id number], [place] [address] Jul, [facility] [place] [facility] [address] [id number], [place] [address] May, [facility] [place] [facility] [address] [id number] [place] [address] May, [facility] [place] [facility] [address] [id number], [place] [address] March, [facility] [place] [facility] [address] [id number], [place] [address] Nov, [facility] [place] [facility] [address] [id number], [place] [address] Oct, [facility] [address] [facility] [id number] [place] [address] Sep, [facility] [address] [facility] [id number] [address] Sep, [facility] [id number] [place] [address] Sep, [facility] [address] [facility] [id number], [place] [address] 12 Aug, 2011 [facility] [address] [place] [id number] [place] [address], [place] [address] Aug, [facility] [address] [facility] [id number] [place] [address] Oct, [facility] [address] [address] 16 Oct, 2010 [facility] [address] [id number] [address] 16 Oct, 2010 [facility] [address] [address] 18 Aug, 2010 [facility] [address], [place] [address] 14 Aug, 2010 [facility] [address], [place] [address] 14 Aug, 2010 [facility] [address] [facility] [id number][place] [address] Oct, [facility] [address] [place] [address] [id number] [address] Sep, [facility] [address] [facility] [id number], [place] [address] 04 Sep, 2009 [facility] [address] [place] [id number] [address] 16 Jul, 2009 IMMUNIZATIONS No Known Immunizations SOCIAL HISTORY Never Assessed REASON FOR VISIT Requests return call PLAN OF CARE VITAL SIGNS MEDICATIONS Unknown [...]
--- OUTSIDE RECORDS SUMMARY | 2019-06-07 07:37 | XMS REPORT ---
Author Author PATRICIA JARAMILLO Organization [facility] Address [address] [place] [address] Care Team Providers Care [employer] Aide Name Role Phone PATRICIA JARAMILLO Unavailable PROBLEMS Type Condition ICD9-CM Code GNV29-RN Code Onset Dates Condition Status SNOMED Code Problem Tobacco abuse Z72.0 Active 12128852 Problem Essential hypertension I10 Active 47104282 Problem BMI 40.0-44.9, adult Z68.41 Active 164165256 Problem S/P cholecystectomy Z90.49 Active 230727411 Problem Shoulder fracture, right S42.91XA Active 32797946 Problem Other chronic pain G89.29 Active 13853840 Problem Chronic obstructive pulmonary disease, unspecified J44.9 Active [id number] ALLERGIES No Information ENCOUNTERS Encounter Location Date Diagnosis [place] [id number] [address] Sep, [place] [address] [address] Aug, Chronic obstructive pulmonary disease, unspecified J44.9 [place] [address] [place] [id number] [place] [address] Aug, [place] [address] [address] Aug, Pain in thoracic spine M54.6 [place] [address] [address] 02 Aug, 2018 Encounter for immunization Z23 [place] [address] [place] [id number] [place] [address] 14 Jul, 2018 Pain in thoracic spine M54.6 [place] [address] [address] Jun, [facility] [address] [facility] [id number] [address] Jun, Therapeutic drug monitoring Z51.81 and Pain in thoracic spine M54.6 [facility] [address] [id number] [address] Jun, [facility] [address] [facility] [id number] [place] [address] Jun, Pain in thoracic spine M54.6 [facility] [address] [id number] [address] May, Pain in thoracic spine M54.6 [facility] [address] [facility] [id number] [place] [address] May, [facility] [address] [place] [id number] [place] [address] Apr, [facility] [address] [facility] [id number] [place] [address] Apr, Pain in thoracic spine M54.6 [facility] [address] [id number] [address] Apr, [facility] [address] [id number] [address] Apr, Medicare annual wellness visit, initial Z00.00 ; BMI 40.0-44.9, adult Z68.41 ; Chronic obstructive pulmonary disease, unspecified J44.9 ; Other chronic pain G89.29 and Essential hypertension I10 [facility] [address] [facility] [id number], [place] [address] March, Pain in thoracic spine M54.6 [facility] [address] [facility] [id number], [place] [address] Feb, Pain in thoracic spine M54.6 [facility] [address] [id number] [address] Feb, Pain in thoracic spine M54.6 ; Other chronic pain G89.29 ; Chronic obstructive pulmonary disease, unspecified J44.9 and Periumbilical hernia K42.9 [place] [address] [address] Jan, Pain in thoracic spine M54.6 [place] [address] [address] Jan, Chronic obstructive pulmonary disease, unspecified J44.9 ; Encounter for immunization Z23 ; Screening, lipid Z13.220 ; Renal insufficiency N28.9 ; Pain in thoracic spine M54.6 and Other chronic pain G89.29 [facility] [address] [address] Sep, Irritation of right eye H57.8 [place] [address] [address] May, Chronic obstructive pulmonary disease, unspecified COPD type J44.9 [place] [address] [address] March, [place] [address] [address] Oct, Medicare annual wellness visit, subsequent Z00.00 ; Encounter for immunization Z23 and S/P cholecystectomy Z90.49 [place] [address] [address] Oct, [place] [address] [address] Sep, [facility] [address] [address] Aug, Wheezing R06.2 and Community acquired pneumonia J18.9 [place] [address] [address] March, Shoulder fracture, right, with routine healing, subsequent encounter S42.91XD [place] [address] [place] [id number] [place] [address] Feb, Shoulder fracture, right S42.91XA [facility] [address] [address] Feb, Shoulder pain M25.519 [facility] [address] [address] Feb, [facility] [address] [address] Feb, Right shoulder pain M25.511 [facility] [address] [address] Feb, [facility] [address] [address] Jan, Renal insufficiency N28.9 [facility] [address] [address] Dec, [facility] [address] [address] Dec, Bronchitis J40 [facility] [address] [address] Dec, [facility] [address] [address] Dec, [facility] [address] [address] Nov, [facility] [address] [place] [id number] [place] [address] Oct, Renal insufficiency N28.9 [facility] [address] [address] Oct, Screening, lipid Z13.220 [facility] [address] [address] 10 Oct, 2015 Chronic obstructive pulmonary disease, unspecified COPD type J44.9 ; Gastroesophageal reflux disease, esophagitis presence not specified K21.9 ; Dysthymia F34.1 and Screening, lipid Z13.220 [facility] [address] [place] [id number] [place] [address] Jun, [facility] [address] [place] [id number] [place] [address] Jun, Sleep apnea 780.57 and COPD (chronic obstructive pulmonary disease) 496 [facility] [address] [place] [id number] [place] [address] Apr, COPD (chronic obstructive pulmonary disease) 496 [facility] [address] [address] Feb, [facility] [address] [address] Feb, [facility] [address] [place] [id number] [place] [address] Nov, [facility] [address] [place] [id number] [place] [address] Nov, [facility] [address] [place] [id number] [place] [address] Nov, [facility] [address] [place] [id number] [place] [address] Nov, [facility] [address] [place] [id number] [place] [address] Oct, [facility] [address] [place] [id number] [place] [address] Oct, [facility] [address] [place] [id number] [place] [address] Oct, [facility] [address] [place] [id number] [place] [address] Oct, [facility] [address] [place] [id number] [place] [address] Oct, [facility] [place] [facility] [address] [id number] [place] [address] Oct, [facility] [place] [facility] [address] [id number] [place] [address] Oct, [facility] [place] [facility] [address] [id number] [place] [address] Oct, [facility] [place] [facility] [address] [id number] [place] [address] March, [facility] [place] [facility] [address] [id number] [place] [address] March, [facility] [place] [facility] [address] [id number] [place] [address] March, [facility] [place] [facility] [address] [id number] [place] [address] March, [facility] [place] [facility] [address] [id number] [place] [address] Feb, [facility] [place] [facility] [address] [id number] [place] [address] Feb, [facility] [place] [facility] [address] [id number] [place] [address] Feb, [facility] [place] [facility] [address] [id number] [place] [address] Feb, [facility] [place] [facility] [address] [id number] [address] Feb, [facility] [place] [facility] [address] [id number] [place] [address] Feb, [facility] [place] [facility] [address] [id number] [place] [address] Jan, [facility] [place] [facility] [address] [id number] [place] [address] Jan, [facility] [place] [facility] [address] [id number] [place] [address] Nov, [facility] [address] [id number] [place] [address] Nov, [facility] [place] [facility] [address] [id number] [place] [address] Nov, [facility] [address] [id number] [place] [address] Aug, [facility] [place] [facility] [address] [id number] [place] [address] Aug, [facility] [address] [id number] [place] [address] Aug, [facility] [place] [facility] [address] [id number] [place] [address] Jun, [facility] [address] [id number] [place] [address] Jun, [facility] [address] [id number] [place] [address] Apr, [facility] [place] [facility] [address] [id number] [place] [address] Apr, [facility] [address] [facility] [id number] [place] [address] March, [facility] [place] [facility] [address] [id number] [place] [address] Feb, [facility] [place] [facility] [address] [id number] [place] [address] Feb, [facility] [place] [facility] [address] [id number] [place] [address] Jan, [facility] [place] [facility] [address] [id number] [place] [address] Dec, [facility] [place] [facility] [address] [id number] [place] [address] Dec, [facility] [address] [id number] [place] [address] Dec, [facility] [place] [facility] [address] [id number] [place] [address] Nov, [facility] [place] [facility] [address] [id number] [place] [address] Nov, [facility] [place] [facility] [address] [id number] [place] [address] Nov, [facility] [place] [facility] [address] [id number] [place] [address] Oct, [facility] [place] [facility] [address] [id number] [place] [address] Oct, [facility] [place] [facility] [address] [id number] [place] [address] Sep, [facility] [place] [facility] [address] [id number] [place] [address] Sep, [facility] [place] [facility] [address] [id number] [place] [address] Aug, [facility] [place] [facility] [address] [id number] [address] Jul, [facility] [place] [facility] [address] [id number], [place] [address] May, [facility] [place] [facility] [address] [id number], [place] [address] May, [facility] [place] [facility] [address] [id number] [place] [address] March, [facility] [place] [facility] [address] [id number] [address] Nov, [facility] [place] [facility] [address] [id number][place] [address] Oct, [facility] [place] [facility] [address] [id number], [place] [address] 11 Sep, 2011 [facility] [address] [address] 10 Sep, 2011 [facility] [address] [address] 10 Sep, 2011 [facility] [address] [address] 12 Aug, 2011 [facility] [id number] [place] [address] 10 Aug, 2011 [facility] [id number] [place] [address] 21 Oct, 2010 [facility] [address] [place] [id number] [place] [address] 16 Oct, 2010 [facility] [id number] [place] [address] 16 Oct, 2010 [facility] [address] [address] 18 Aug, 2010 [facility] [id number] [place] [address] 14 Aug, 2010 [facility] [address] [address] 14 Aug, 2010 [facility] [address] [address] 02 Oct, 2009 [facility] [address] [address] Sep, [facility] [address] [address] 04 Sep, 2009 [facility] [address] [address] 16 Jul, 2009 IMMUNIZATIONS No Known Immunizations SOCIAL HISTORY Never Assessed REASON FOR VISIT Refill request PLAN OF CARE VITAL SIGNS MEDICATIONS Medication Instructions Dosage Frequency Start Date End Date Duration Status Albuterol Sulfate (2.5 MG/3ML) 0.083% Inhalation 4 times a day 3 ml as needed 6h Aug, 30 days Active Ipratropium [place] 0.02 % Inhalation 4 times a day 2.5 ml as needed 6h Aug, 30 days Active RESULTS No Results PROCEDURES No Known procedures INSTRUCTIONS MEDICATIONS ADMINISTERED No Known Medications MEDICAL (GENERAL) HISTORY Type Description Date Medical History sleep apnea Medical History emphysema Medical History heartburn Medical History broken back in two place Medical History broken right shoulder Surgical History x 3 Surgical History gallbladder Hospitalization History surgery
--- OUTSIDE RECORDS SUMMARY | 2019-06-07 07:37 | XMS REPORT ---
Author Author PATRICIA JARAMILLO Organization [facility] Address [address] [place] [address] Care Team Providers Care Welding Operator Name Role Phone PATRICIA JARAMILLO Unavailable PROBLEMS Type Condition ICD9-CM Code QWP57-UU Code Onset Dates Condition Status SNOMED Code Problem Tobacco abuse Z72.0 Active 23187460 Problem Essential hypertension I10 Active 42689178 Problem BMI 40.0-44.9, adult Z68.41 Active 840630841 Problem S/P cholecystectomy Z90.49 Active 758546022 Problem Shoulder fracture, right S42.91XA Active 91021572 Problem Other chronic pain G89.29 Active 12883217 Problem Chronic obstructive pulmonary disease, unspecified J44.9 Active 28662413 ALLERGIES No Information ENCOUNTERS Encounter Location Date Diagnosis [place] [address] [address] Aug, Encounter for immunization Z23 [place] [address] [address] Jul, Pain in thoracic spine M54.6 [place] [address] [place] [id number] [place] [address] Jun, [place] [address] [place] [id number] [place] [address] Jun, Therapeutic drug monitoring Z51.81 and Pain in thoracic spine M54.6 [place] [address] [address] Jun, [place] [address] [place] [id number] [place] [address] Jun, Pain in thoracic spine M54.6 [place] [address] [place] [address] May, Pain in thoracic spine M54.6 [facility] [address] [place] [id number] [place] [address] May, [facility] [address] [place] [id number] [place] [address] Apr, [facility] [address] [place] [id number] [place] [address] Apr, Pain in thoracic spine M54.6 [facility] [address] [place] [id number] [place] [address] Apr, [place] [address] [place] [id number] [place] [address] Apr, Medicare annual wellness visit, initial Z00.00 ; BMI 40.0-44.9, adult Z68.41 ; Chronic obstructive pulmonary disease, unspecified J44.9 ; Other chronic pain G89.29 and Essential hypertension I10 [facility] [address] [place] [id number] [place] [address] March, Pain in thoracic spine M54.6 [place] [address] [place] [id number] [place] [address] Feb, Pain in thoracic spine M54.6 [place] [address] [place] [id number] [place] [address] Feb, Pain in thoracic spine M54.6 ; Other chronic pain G89.29 ; Chronic obstructive pulmonary disease, unspecified J44.9 and Periumbilical hernia K42.9 [facility] [address] [place] [id number] [place] [address] Jan, Pain in thoracic spine M54.6 [facility] [address] [place] [id number] [place] [address] Jan, Chronic obstructive pulmonary disease, unspecified J44.9 ; Encounter for immunization Z23 ; Screening, lipid Z13.220 ; Renal insufficiency N28.9 ; Pain in thoracic spine M54.6 and Other chronic pain G89.29 [facility] [place] [address] [address] Sep, Irritation of right eye H57.8 [place] [address] [address] May, Chronic obstructive pulmonary disease, unspecified COPD type J44.9 [place] [address] [address] March, [place] [address] [address] Oct, Medicare annual wellness visit, subsequent Z00.00 ; Encounter for immunization Z23 and S/P cholecystectomy Z90.49 [place] [address] [address] Oct, [place] [address] [address] Sep, [facility] [address] [address] Aug, Wheezing R06.2 and Community acquired pneumonia J18.[address] [address] March, Shoulder fracture, right, with routine healing, subsequent encounter S42.91XD [address] [address] Feb, Shoulder fracture, right S42.91XA [address] [address] Feb, Shoulder pain M25.519 [facility] [address] [address] Feb, [facility] [place] [address] [address] Feb, Right shoulder pain M25.511 [facility] [address] [place] [id number] [place] [address] Feb, [facility] [address] [address] Jan, Renal insufficiency N28.9 [facility] [address] [address] Dec, [facility] [address] [address] Dec, Bronchitis J40 [facility] [address] [address] Dec, [facility] [address] [address] Dec, [facility] [address] [address] Nov, [facility] [address] [address] Oct, Renal insufficiency N28.9 [place] [address] [address] Oct, Screening, lipid Z13.220 [place] [address] [place] [id number] [place] [address] Oct, Chronic obstructive pulmonary disease, unspecified COPD type J44.9 ; Gastroesophageal reflux disease, esophagitis presence not specified K21.9 ; Dysthymia F34.1 and Screening, lipid Z13.220 [facility] [address] [place] [id number] [place] [address] Jun, [place] [address] [address] Jun, Sleep apnea 780.57 and COPD (chronic obstructive pulmonary disease) 496 [place] [address] [address] Apr, COPD (chronic obstructive pulmonary disease) 496 [facility] [address] [id number] [place] [address] 14 Feb, 2015 [facility] [address] [id number] [place] [address] Feb, [facility] [address] [facility] [id number] [place] [address] Nov, [facility] [place] [facility] [address] [id number] [place] [address] Nov, [facility] [address] [id number] [place] [address] Nov, [facility] [address] [id number] [place] [address] Nov, [facility] [address] [id number] [place] [address] Oct, [facility] [place] [facility] [address] [id number] [place] [address] Oct, [facility] [address] [id number] [place] [address] Oct, [facility] [place] [facility] [address] [id number] [place] [address] Oct, [facility] [place] [facility] [address] [id number] [place] [address] Oct, [facility] [place] [facility] [address] [id number] [place] [address] Oct, [facility] [place] [facility] [address] [id number] [place] [address] Oct, [facility] [place] [facility] [address] [facility] [id number] [place] [address] Oct, [facility] [place] [facility] [address] [facility] [id number] [place] [address] March, [facility] [place] [facility] [address] [id number] [place] [address] March, [facility] [address] [id number] [place] [address] March, [facility] [place] [facility] [address] [id number] [place] [address] March, [facility] [address] [id number] [place] [address] Feb, [facility] [place] [facility] [address] [id number] [place] [address] Feb, [facility] [address] [id number] [place] [address] Feb, [facility] [place] [facility] [address] [id number] [place] [address] Feb, [facility] [address] [id number] [place] [address] Feb, [facility] [address] [id number] [place] [address] Feb, [facility] [place] [facility] [address] [id number] [place] [address] Jan, [facility] [address] [id number] [place] [address] Jan, [facility] [place] [facility] [address] [id number] [place] [address] Nov, [facility] [place] [facility] [address] [id number] [place] [address] Nov, [facility] [place] [facility] [address] [id number] [place] [address] Nov, [facility] [place] [facility] [address] [id number] [place] [address] Aug, [facility] [place] [facility] [address] [id number] [place] [address] Aug, [facility] [place] [facility] [address] [id number] [place] [address] Aug, [facility] [address] [id number] [place] [address] Jun, [facility] [address] [id number] [place] [address] Jun, [facility] [place] [facility] [address] [id number] [place] [address] Apr, [facility] [address] [id number] [place] [address] Apr, [facility] [place] [facility] [address] [id number] [place] [address] March, [facility] [address] [id number] [place] [address] Feb, [facility] [address] [id number] [place] [address] Feb, [facility] [address] [id number] [place] [address] Jan, [facility] [address] [id number] [place] [address] Dec, [facility] [place] [facility] [address] [id number] [place] [address] Dec, [facility] [place] [facility] [address] [id number], [place] [address] Dec, [facility] [place] [facility] [address] [id number] [place] [address] Nov, [facility] [place] [facility] [address] [id number] [place] [address] Nov, [facility] [place] [facility] [address] [id number] [place] [address] Nov, [facility] [place] [facility] [address] [id number] [place] [address] Oct, [facility] [place] [facility] [address] [id number] [place] [address] Oct, [facility] [place] [facility] [address] [id number] [place] [address] Sep, [facility] [place] [facility] [address] [id number] [place] [address] Sep, [facility] [place] [facility] [address] [id number] [place] [address] Aug, [facility] [place] [facility] [address] [id number] [place] [address] Jul, [facility] [place] [facility] [address] [id number] [place] [address] May, [facility] [place] [facility] [address] [id number] [place] [address] May, [facility] [place] [facility] [address] [id number] [place] [address] March, [facility] [place] [facility] [address] [id number] [place] [address] Nov, [facility] [place] [facility] [address] [id number] [place] [address] Oct, [facility] [place] [facility] [address] [id number] [place] [address] Sep, [facility] [place] [facility] [address] [id number], [place] [address] Sep, [facility] [place] [facility] [address] [id number] [place] [address] Sep, [facility] [place] [facility] [address] [id number] [place] [address] Aug, [facility] [place] [facility] [address] [id number], [place] [address] Aug, [facility] [place] [facility] [address] [facility] [id number], [place] [address] Oct, [facility] [address] [facility] [id number], [place] [address] Oct, [facility] [address] [facility] [id number], [place] [address] Oct, [facility] [address] [facility] [id number], [place] [address] 18 Aug, 2010 [facility] [address] [facility] [id number], [place] [address] Aug, [facility] [address] [facility] [id number], [place] [address] Aug, [facility] [id number], [place] [address] Oct, [facility] [id number], [place] [address] Sep, [facility] [address] [id number], [place] [address] Sep, [facility] [address] [id number], [place] [address] Jul, IMMUNIZATIONS Vaccine Route Administration Date Status FLULAVAL QUAD 0.5ML (6 MO & UP) 2017 IM Intramuscular Aug 16, 2018 Administered SOCIAL HISTORY Never Assessed REASON FOR VISIT Flu shot PLAN OF CARE VITAL SIGNS MEDICATIONS Unknown Medications RESULTS No Results PROCEDURES Procedure Date Ordered Result Body Site FLULAVAL QUAD 0.5ML (6 MO AND UP) 2017Aug 16, 2018 FLULAVAL QUAD 0.5ML (6 MO & UP) 2017Aug 16, 2018 SINGLE IMMUNIZATION ADMIN Aug 16, 2018 INSTRUCTIONS MEDICATIONS ADMINISTERED No Known Medications MEDICAL (GENERAL) HISTORY Type Description Date Medical History sleep apnea Medical History emphysema Medical History heartburn Medical History broken back in two place Medical History broken right shoulder Surgical History x 3 Surgical History gallbladder Hospitalization History surgery
--- OUTSIDE RECORDS SUMMARY | 2019-06-07 07:37 | XMS REPORT ---
Author Author PATRICIA JARAMILLO Organization [facility] Address [address] [place] [address] Care Team Providers Care Director Of Aviation Name Role Phone PATRICIA JARAMILLO Unavailable PROBLEMS Type Condition ICD9-CM Code HOZ62-IV Code Onset Dates Condition Status SNOMED Code Problem Tobacco abuse Z72.0 Active 13225346 Problem Essential hypertension I10 Active 25328979 Problem BMI 40.0-44.9, adult Z68.41 Active 939254502 Problem S/P cholecystectomy Z90.49 Active 751536069 Problem Shoulder fracture, right S42.91XA Active 40396456 Problem Other chronic pain G89.29 Active 64255032 Problem Chronic obstructive pulmonary disease, unspecified J44.9 Active [id number] ALLERGIES No Information ENCOUNTERS Encounter Location Date Diagnosis [place] [address] [address] Aug, [place] [address] [address] Aug, Pain in thoracic spine M54.6 [place] [address] [address] Aug, Encounter for immunization Z23 [place] [address] [place] [id number] [place] [address] Jul, Pain in thoracic spine M54.6 [place] [address] [address] Jun, [place] [address] [address] Jun, Therapeutic drug monitoring Z51.81 and Pain in thoracic spine M54.6 [place] [address] [place] [address] Jun, [facility] [address] [address] Jun, Pain in thoracic spine M54.6 [facility] [address] [address] May, Pain in thoracic spine M54.6 [facility] [address] [place] [id number] [place] [address] May, [facility] [id number] [place] [address] Apr, [facility] [address] [place] [id number] [place] [address] Apr, Pain in thoracic spine M54.6 [facility] [id number] [place] [address] Apr, [facility] [id number] [place] [address] Apr, Medicare annual wellness visit, initial Z00.00 ; BMI 40.0-44.9, adult Z68.41 ; Chronic obstructive pulmonary disease, unspecified J44.9 ; Other chronic pain G89.29 and Essential hypertension I10 [facility] [address] [address] March, Pain in thoracic spine M54.6 [facility] [address] [place] [id number] [place] [address] Feb, Pain in thoracic spine M54.6 [facility] [address] [place] [address] Feb, Pain in thoracic spine M54.6 ; Other chronic pain G89.29 ; Chronic obstructive pulmonary disease, unspecified J44.9 and Periumbilical hernia K42.9 [facility] [address] [address] Jan, Pain in thoracic spine M54.6 [place] [address] [address] Jan, Chronic obstructive pulmonary disease, unspecified J44.9 ; Encounter for immunization Z23 ; Screening, lipid Z13.220 ; Renal insufficiency N28.9 ; Pain in thoracic spine M54.6 and Other chronic pain G89.29 [facility] [address] [address] Sep, Irritation of right eye H57.8 [place] [address] [address] May, Chronic obstructive pulmonary disease, unspecified COPD type J44.9 [place] [address] [address] March, [place] [address] [address] Oct, Medicare annual wellness visit, subsequent Z00.00 ; Encounter for immunization Z23 and S/P cholecystectomy Z90.49 [place] [address] [address] Oct, [place] [address] [address] Sep, [facility] [place] [address] [address] Aug, Wheezing R06.2 and Community acquired pneumonia J18.9 [place] [address] [address] March, Shoulder fracture, right, with routine healing, subsequent encounter S42.91XD [address] [address] Feb, Shoulder fracture, right S42.91XA [place] [address] [address] Feb, Shoulder pain M25.519 [facility] [address] [place] [id number] [place] [address] Feb, [facility] [address] [place] [id number] [place] [address] Feb, Right shoulder pain M25.511 [facility] [address] [place] [id number] [place] [address] Feb, [facility] [address] [address] Jan, Renal insufficiency N28.9 [facility] [address] [place] [id number] [place] [address] Dec, [facility] [address] [address] Dec, Bronchitis J40 [facility] [address] [address] Dec, [facility] [address] [place] [id number] [place] [address] Dec, [facility] [address] [place] [id number] [place] [address] Nov, [facility] [address] [place] [id number] [place] [address] Oct, Renal insufficiency N28.9 [facility] [address] [place] [id number] [place] [address] Oct, Screening, lipid Z13.220 [facility] [address] [place] [id number] [place] [address] Oct, Chronic obstructive pulmonary disease, unspecified COPD type J44.9 ; Gastroesophageal reflux disease, esophagitis presence not specified K21.9 ; Dysthymia F34.1 and Screening, lipid Z13.220 [facility] [address] [place] [id number] [place] [address] Jun, [facility] [address] [address] Jun, Sleep apnea 780.57 and COPD (chronic obstructive pulmonary disease) 496 [facility] [address] [place] [address] Apr, COPD (chronic obstructive pulmonary disease) 496 [facility] [address] [place] [address] 14 Feb, 2015 [facility] [address] [place] [address] Feb, [facility] [id number] [place] [address], [place] [address] Nov, [facility] [address] [place] [address] Nov, [facility] [id number] [place] [address], [place] [address] Nov, [facility] [address] [address] Nov, [facility] [address] [place] [address] Oct, [facility] [address] [place] [address] Oct, [facility] [address] [place] [address] Oct, [facility] [address] [address] Oct, [facility] [address] [place] [address] Oct, [facility] [address] [place] [address] Oct, [facility] [address] [place] [id number] [address] Oct, [facility] [address] [id number] [place] [address] Oct, [facility] [place] [facility] [address] [id number] [place] [address] March, [facility] [place] [facility] [address] [id number] [place] [address] March, [facility] [place] [facility] [address] [id number] [place] [address] March, [facility] [place] [facility] [address] [id number] [place] [address] March, [facility] [place] [facility] [address] [id number] [place] [address] Feb, [facility] [place] [facility] [address] [id number] [place] [address] Feb, [facility] [place] [facility] [address] [id number] [place] [address] Feb, [facility] [place] [facility] [address] [id number] [place] [address] Feb, [facility] [place] [facility] [address] [id number] [place] [address] Feb, [facility] [place] [facility] [address] [id number] [place] [address] Feb, [facility] [place] [facility] [address] [id number] [place] [address] Jan, [facility] [place] [facility] [address] [id number] [place] [address] Jan, [facility] [place] [facility] [address] [id number] [place] [address] Nov, [facility] [place] [facility] [address] [id number] [place] [address] Nov, [facility] [place] [facility] [address] [id number] [place] [address] Nov, [facility] [place] [facility] [address] [id number] [place] [address] Aug, [facility] [place] [facility] [address] [id number] [place] [address] Aug, [facility] [place] [facility] [address] [id number] [place] [address] Aug, [facility] [place] [facility] [address] [id number] [place] [address] Jun, [facility] [place] [facility] [address] [id number] [place] [address] Jun, [facility] [place] [facility] [address] [id number] [place] [address] Apr, [facility] [place] [facility] [address] [id number] [place] [address] Apr, [facility] [place] [facility] [address] [id number] [place] [address] March, [facility] [place] [facility] [address] [id number] [place] [address] Feb, [facility] [place] [facility] [address] [id number] [place] [address] Feb, [facility] [place] [facility] [address] [id number] [address] Jan, [facility] [place] [facility] [address] [id number] [address] Dec, [facility] [place] [facility] [address] [id number] [place] [address] Dec, [facility] [place] [facility] [address] [id number] [place] [address] Dec, [facility] [place] [facility] [address] [id number] [place] [address] Nov, [facility] [place] [facility] [address] [id number] [place] [address] Nov, [facility] [address] [id number] [place] [address] Nov, [facility] [place] [facility] [address] [id number] [place] [address] Oct, [facility] [address] [id number] [place] [address] Oct, [facility] [place] [facility] [address] [id number] [place] [address] Sep, [facility] [address] [id number] [place] [address] Sep, [facility] [address] [id number] [place] [address] Aug, [facility] [address] [id number] [place] [address] Jul, [facility] [address] [id number] [place] [address] May, [facility] [address] [id number] [place] [address] May, [facility] [address] [id number] [place] [address] March, [facility] [address] [id number] [place] [address] Nov, [facility] [address] [id number] [place] [address] Oct, [facility] [place] [facility] [address] [id number] [place] [address] Sep, [facility] [place] [facility] [address] [id number] [place] [address] Sep, [facility] [address] [id number] [place] [address] Sep, [facility] [address] [address] Aug, [facility] [address], [place] [address] Aug, [facility] [address], [place] [address] Oct, [facility] [address] [facility] [id number] [address] Oct, [facility] [address] [address] Oct, [facility] [id number] [place] [address] Aug, [facility] [address], [place] [address] Aug, [facility] [address] [address] Aug, [facility] [address], [place] [address] Oct, [facility] [address] [place] [address] Sep, [facility] [address], [place] [address] Sep, [facility] [address] [place] [id number] [address] Jul, IMMUNIZATIONS No Known Immunizations SOCIAL HISTORY Never Assessed REASON FOR VISIT Controlled Med Refill 08/29/18 PLAN OF CARE VITAL SIGNS MEDICATIONS Medication [...]
--- OUTSIDE RECORDS SUMMARY | 2019-06-07 07:38 | XMS REPORT ---
Author Author PATRICIA JARAMILLO Organization [facility] Address [address] [place] [address] Care Team Providers Care Camera Systems Engineer Name Role Phone PATRICIA JARAMILLO Unavailable PROBLEMS Type Condition ICD9-CM Code GVQ88-WT Code Onset Dates Condition Status SNOMED Code Problem Tobacco abuse Z72.0 Active 14344526 Problem Essential hypertension I10 Active 99840060 Problem BMI 40.0-44.9, adult Z68.41 Active Problem S/P cholecystectomy Z90.49 Active 286262188 Problem Shoulder fracture, right S42.91XA Active 75808232 Problem Other chronic pain G89.29 Active 44711926 Problem Chronic obstructive pulmonary disease, unspecified J44.9 Active 08323383 ALLERGIES Substance Reaction Event Type Date Status Penicillin V Potassium hives Drug Allergy Jun, Active Advair Diskus hives Drug Allergy Jun, Active ENCOUNTERS Encounter Location Date Diagnosis [place] [id number] [place] [address] Jul, Pain in thoracic spine M54.6 [place] [id number] [place] [address] Jun, [place] [id number] [place] [address] Jun, Therapeutic drug monitoring Z51.81 and Pain in thoracic spine M54.6 [facility] [id number] [place] [address] Jun, [place] [id number] [place] [address] Jun, Pain in thoracic spine M54.6 [facility] [id number] [place] [address] May, Pain in thoracic spine M54.6 [facility] [id number] [address] May, [place] [id number] [place] [address] Apr, [place] [id number] [place] [address] Apr, Pain in thoracic spine M54.6 [place] [id number] [place] [address] Apr, [place] [id number] [place] [address] Apr, Medicare annual wellness visit, initial Z00.00 ; BMI 40.0-44.9, adult Z68.41 ; Chronic obstructive pulmonary disease, unspecified J44.9 ; Other chronic pain G89.29 and Essential hypertension I10 [place] [id number] [place] [address] March, Pain in thoracic spine M54.6 [place] [id number] [place] [address] Feb, Pain in thoracic spine M54.6 [place] [id number] [place] [address] Feb, Pain in thoracic spine M54.6 ; Other chronic pain G89.29 ; Chronic obstructive pulmonary disease, unspecified J44.9 and Periumbilical hernia K42.9 [place] [id number] [place] [address] Jan, Pain in thoracic spine M54.6 [place] [id number] [place] [address] Jan, Chronic obstructive pulmonary disease, unspecified J44.9 ; Encounter for immunization Z23 ; Screening, lipid Z13.220 ; Renal insufficiency N28.9 ; Pain in thoracic spine M54.6 and Other chronic pain G89.29 [facility] [id number] [place] [address] Sep, Irritation of right eye H57.8 [place] [address] [address] May, Chronic obstructive pulmonary disease, unspecified COPD type J44.9 [place] [address] [address] March, [place] [address] [address] Oct, Medicare annual wellness visit, subsequent Z00.00 ; Encounter for immunization Z23 and S/P cholecystectomy Z90.49 [place] [address] [address] Oct, [place] [address] [address] Sep, [facility] [address] [address] Aug, Wheezing R06.2 and Community acquired pneumonia J18.9 [place] [address] [address] March, Shoulder fracture, right, with routine healing, subsequent encounter S42.91XD [address] [address] Feb, Shoulder fracture, right S42.91XA [place] [address] [address] Feb, Shoulder pain M25.519 [facility] [address] [address] Feb, [facility] [address] [address] Feb, Right shoulder pain M25.511 [place] [address] [place] [address] Feb, [facility] [id number] [place] [address] Jan, Renal insufficiency N28.9 [facility] [id number] [place] [address] Dec, [facility] [address] [address] Dec, Bronchitis J40 [facility] [id number] [place] [address] Dec, [facility] [id number] [place] [address] Dec, [facility] [id number] [place] [address] Nov, [facility] [id number] [place] [address] Oct, Renal insufficiency N28.9 [facility] [id number] [place] [address] Oct, Screening, lipid Z13.220 [facility] [id number] [place] [address] 10 Oct, 2015 Chronic obstructive pulmonary disease, unspecified COPD type J44.9 ; Gastroesophageal reflux disease, esophagitis presence not specified K21.9 ; Dysthymia F34.1 and Screening, lipid Z13.220 [facility] [id number] [place] [address] Jun, [facility] [address] [address] Jun, Sleep apnea 780.57 and COPD (chronic obstructive pulmonary disease) [address] [facility] [id number] [place] [address] Apr, COPD (chronic obstructive pulmonary disease) [address] [place] [address] [id number] [place] [address] 14 Feb, 2015 [facility] [place] [facility] [address] [id number] [place] [address] 13 Feb, 2015 [facility] [place] [facility] [address] [id number] [place] [address] 28 Nov, 2014 [facility] [place] [facility] [address] [id number] [place] [address] Nov, [facility] [place] [facility] [address] [id number] [place] [address] Nov, [facility] [place] [facility] [address] [id number] [place] [address] Nov, [facility] [place] [facility] [address] [id number] [place] [address] Oct, [facility] [place] [facility] [address] [id number] [place] [address] Oct, [facility] [place] [facility] [address] [id number] [place] [address] Oct, [facility] [place] [facility] [address] [id number] [place] [address] Oct, [facility] [place] [facility] [address] [id number] [place] [address] Oct, [facility] [place] [facility] [address] [id number] [place] [address] Oct, [facility] [place] [facility] [address] [id number] [place] [address] Oct, [facility] [place] [facility] [address] [id number] [place] [address] Oct, [facility] [place] [facility] [address] [id number] [place] [address] March, [facility] [place] [facility] [address] [id number] [place] [address] March, [facility] [place] [facility] [address] [id number] [place] [address] March, [facility] [place] [facility] [address] [id number] [place] [address] March, [facility] [place] [facility] [address] [id number] [place] [address] Feb, [facility] [place] [facility] [address] [id number] [place] [address] Feb, [facility] [place] [facility] [address] [id number] [place] [address] Feb, [facility] [place] [facility] [address] [id number] [place] [address] Feb, [facility] [place] [facility] [address] [id number] [place] [address] Feb, [facility] [place] [facility] [address] [id number] [place] [address] Feb, [facility] [place] [facility] [address] [id number] [place] [address] Jan, [facility] [place] [facility] [address] [id number] [place] [address] Jan, [facility] [place] [facility] [address] [id number] [place] [address] Nov, [facility] [place] [facility] [address] [id number] [place] [address] Nov, [facility] [place] [facility] [address] [id number] [place] [address] Nov, [facility] [place] [facility] [address] [id number] [place] [address] Aug, [facility] [place] [facility] [address] [id number] [place] [address] Aug, [facility] [place] [facility] [address] [id number] [place] [address] Aug, [facility] [address] [id number] [place] [address] Jun, [facility] [address] [id number] [place] [address] Jun, [facility] [address] [id number] [place] [address] Apr, [facility] [address] [id number] [place] [address] Apr, [facility] [address] [id number] [place] [address] March, [facility] [address] [id number] [place] [address] Feb, [facility] [address] [id number] [place] [address] Feb, [facility] [address] [id number] [place] [address] Jan, [facility] [address] [id number] [place] [address] Dec, [facility] [address] [id number] [place] [address] Dec, [facility] [address] [id number] [place] [address] Dec, [facility] [address] [id number] [place] [address] Nov, [facility] [address] [id number] [place] [address] Nov, [facility] [address] [id number] [place] [address] Nov, [facility] [address] [id number] [place] [address] Oct, [facility] [place] [facility] [address] [id number] [place] [address] Oct, [facility] [place] [facility] [address] [id number] [place] [address] Sep, [facility] [place] [facility] [address] [id number] [place] [address] Sep, [facility] [place] [facility] [address] [id number] [place] [address] Aug, [facility] [place] [facility] [address] [id number] [place] [address] Jul, [facility] [place] [facility] [address] [id number] [place] [address] May, [facility] [place] [facility] [address] [id number] [place] [address] May, [facility] [place] [facility] [address] [id number] [place] [address] March, [facility] [place] [facility] [address] [id number] [place] [address] Nov, [facility] [place] [facility] [address] [id number] [place] [address] Oct, [facility] [place] [facility] [address] [id number] [place] [address] Sep, [facility] [place] [facility] [address] [id number] [place] [address] Sep, [facility] [place] [facility] [address] [id number] [place] [address] Sep, [facility] [place] [facility] [address] [id number] [place] [address] Aug, [facility] [place] [facility] [address] [id number] [place] [address] Aug, [facility] [place] [facility] [address] [id number] [place] [address] Oct, [facility] [address] [place] [address] 16 Oct, 2010 [facility] [address] [place] [address] Oct, [facility] [id number] [address] Aug, [facility] [id number] [place] [address] Aug, [facility] [id number] [place] [address] Aug, [facility] [id number] [place] [address] Oct, [facility] [id number] [place] [address] Sep, [facility] [address] [place] [address] Sep, [facility] [address] [place] [address] Jul, IMMUNIZATIONS No Known Immunizations SOCIAL HISTORY Never Assessed REASON FOR VISIT Pain management (chronic) Pt in for pain management [place]G[facility] [place] PLAN OF CARE Activity Details Follow Up 3 Months Reason:pain mgmt VITAL SIGNS Height 66 in 2018-07-13 Weight 259.1 lbs 2018-07-13 Temperature 97.9 degrees Fahrenheit 2018-07-13 Heart Rate 88 bpm 2018-07-13 Respiratory Rate 20 2018-07-13 BMI 41.82 kg/m2 2018-07-13 Blood pressure systolic 138 mmHg 2018-07-13 Blood pressure diastolic 76 mmHg 2018-07-13 MEDICATIONS Medication Instructions Dosage Frequency Start Date End Date Duration Status Breo Ellipta by inhalation route [address] Benavides Nov, Active Lisinopril 5 MG TAKE 1 TABLET BY MOUTH EVERY DAY 90 Active Omeprazole 20 MG TAKE 1 CAPSULE BY MOUTH EVERY DAY 90 Active Ventolin HFA 108 (90 Base) MCG/ACT Inhalation every 4-6 hours as needed 2 puffs as needed Apr, 30 days Active Albuterol 0.083% by Inhalation route 4 times per day Feb, Active Calcium + D3 600-200 MG-UNIT Orally Once a day (may take up to BID) 1 tablet with a meal Active Wellbutrin XL 150 MG Orally Once a day 1 tablet in the morning 24h 90 days Active Incruse Ellipta 62.5 MCG/INH Inhalation Once a day 1 puff 24h Active Oxygen 3L Active Tramadol HCl 50 MG Orally 3 times a day 1 tablet 8h Jan, 28 days Active Atrovent 0.02 % 2.5 mL by Inhalation route 4 times per day PRN Feb, Active Singulair 10 MG Orally Once a day 1 tablet in the evening 24h Active RESULTS No Results PROCEDURES Procedure Date Ordered Result Body Site [facility] V[facility] ESTABLISHED PATIENT Jul 13, 2018 INSTRUCTIONS MEDICATIONS ADMINISTERED No Known Medications MEDICAL (GENERAL) HISTORY Type Description Date Medical History sleep apnea Medical History emphysema Medical History heartburn Medical History broken back in two place Medical History broken right shoulder Surgical History x 3 Surgical History gallbladder Hospitalization History surgery
--- OUTSIDE RECORDS SUMMARY | 2019-06-07 07:38 | XMS REPORT ---
Author Author PATRICIA JARAMILLO Organization [facility] Address [address] [place] [address] Care Team Providers Care Bus Repair Supervisor Name Role Phone PATRICIA JARAMILLO Unavailable PROBLEMS Type Condition ICD9-CM Code HPN30-VD Code Onset Dates Condition Status SNOMED Code Problem Tobacco abuse Z72.0 Active 52857181 Problem Essential hypertension I10 Active 69650414 Problem BMI 40.0-44.9, adult Z68.41 Active 543415711 Problem S/P cholecystectomy Z90.49 Active 846620172 Problem Shoulder fracture, right S42.91XA Active 72014643 Problem Other chronic pain G89.29 Active 76298000 Problem Chronic obstructive pulmonary disease, unspecified J44.9 Active 28689083 ALLERGIES No Information ENCOUNTERS Encounter Location Date Diagnosis [place] [id number] [place] [address] Jul, Pain in thoracic spine M54.6 [facility] [id number] [place] [address] Jun, [facility] [id number] [place] [address] Jun, Therapeutic drug monitoring Z51.81 and Pain in thoracic spine M54.6 [facility] [id number] [place] [address] Jun, [facility] [id number] [place] [address] Jun, Pain in thoracic spine M54.6 [facility] [id number] [place] [address] May, Pain in thoracic spine M54.6 [facility] [id number] [address] May, [facility] [id number] [place] [address] Apr, [facility] [id number] [place] [address] Apr, Pain in thoracic spine M54.6 [facility] [id number] [place] [address] Apr, [facility] [id number] [place] [address] Apr, Medicare annual wellness visit, initial Z00.00 ; BMI 40.0-44.9, adult Z68.41 ; Chronic obstructive pulmonary disease, unspecified J44.9 ; Other chronic pain G89.29 and Essential hypertension I10 [place] [id number] [place] [address] March, Pain in thoracic spine M54.6 [facility] [id number] [place] [address] Feb, Pain in thoracic spine M54.6 [place] [id number] [place] [address] Feb, Pain in thoracic spine M54.6 ; Other chronic pain G89.29 ; Chronic obstructive pulmonary disease, unspecified J44.9 and Periumbilical hernia K42.9 [facility] [id number] [place] [address] Jan, Pain in thoracic spine M54.6 [place] [id number] [place] [address] Jan, Chronic obstructive pulmonary disease, unspecified J44.9 ; Encounter for immunization Z23 ; Screening, lipid Z13.220 ; Renal insufficiency N28.9 ; Pain in thoracic spine M54.6 and Other chronic pain G89.29 [facility] [id number] [place] [address] Sep, Irritation of right eye H57.8 [place] [address] [address] May, Chronic obstructive pulmonary disease, unspecified COPD type J44.9 [place] [address] [address] March, [place] [address] [address] Oct, Medicare annual wellness visit, subsequent Z00.00 ; Encounter for immunization Z23 and S/P cholecystectomy Z90.49 [place] [address] [address] Oct, [place] [address] [address] Sep, [facility] [address] [address] Aug, Wheezing R06.2 and Community acquired pneumonia J18.9 [place] [address] [address] March, Shoulder fracture, right, with routine healing, subsequent encounter S42.91XD [place] [address] [address] Feb, Shoulder fracture, right S42.91XA [place] [address] [address] Feb, Shoulder pain M25.519 [facility] [address] [address] Feb, [facility] [address] [address] Feb, Right shoulder pain M25.511 [place] [address] [address] Feb, [place] [id number] [place] [address] Jan, Renal insufficiency N28.9 [facility] [address] [address] 18 Dec, 2015 [facility] [id number] [place] [address] Dec, Bronchitis J40 [facility] [address] [address] Dec, [facility] [address] [address] Dec, [facility] [id number] [place] [address] Nov, [facility] [id number] [place] [address] Oct, Renal insufficiency N28.9 [facility] [id number] [place] [address] 11 Oct, 2015 Screening, lipid Z13.220 [place] [address] [address] 10 Oct, 2015 Chronic obstructive pulmonary disease, unspecified COPD type J44.9 ; Gastroesophageal reflux disease, esophagitis presence not specified K21.9 ; Dysthymia F34.1 and Screening, lipid Z13.220 [place] [id number] [place] [address] Jun, [facility] [id number] [place] [address] Jun, Sleep apnea 780.57 and COPD (chronic obstructive pulmonary disease) 496 [facility] [id number] [place] [address] Apr, COPD (chronic obstructive pulmonary disease) 496 [facility] [id number] [place] [address] Feb, [facility] [place] [facility] [address] [id number] [place] [address] 13 Feb, 2015 [facility] [place] [facility] [address] [id number] [place] [address] Nov, [facility] [place] [facility] [address] [id number] [place] [address] Nov, [facility] [place] [facility] [address] [id number] [place] [address] Nov, [facility] [place] [facility] [address] [id number] [place] [address] Nov, [facility] [place] [facility] [address] [id number] [place] [address] Oct, [facility] [place] [facility] [address] [id number] [place] [address] Oct, [facility] [place] [facility] [address] [id number] [place] [address] Oct, [facility] [place] [facility] [address] [id number] [place] [address] Oct, [facility] [place] [facility] [address] [id number] [place] [address] Oct, [facility] [place] [facility] [address] [id number] [place] [address] Oct, [facility] [place] [facility] [address] [id number] [place] [address] Oct, [facility] [place] [facility] [address] [id number] [place] [address] Oct, [facility] [place] [facility] [address] [id number] [place] [address] March, [facility] [place] [facility] [address] [id number] [place] [address] March, [facility] [place] [facility] [address] [id number] [place] [address] March, [facility] [place] [facility] [address] [id number] [place] [address] March, [facility] [place] [facility] [address] [id number] [place] [address] Feb, [facility] [place] [facility] [address] [id number] [place] [address] Feb, [facility] [place] [facility] [address] [id number] [place] [address] Feb, [facility] [place] [facility] [address] [id number] [place] [address] Feb, [facility] [place] [facility] [address] [id number] [place] [address] Feb, [facility] [place] [facility] [address] [id number] [place] [address] Feb, [facility] [place] [facility] [address] [id number] [place] [address] Jan, [facility] [place] [facility] [address] [id number] [place] [address] Jan, [facility] [place] [facility] [address] [id number] [place] [address] Nov, [facility] [place] [facility] [address] [id number] [place] [address] Nov, [facility] [place] [facility] [address] [id number] [place] [address] Nov, [facility] [place] [facility] [address] [id number] [place] [address] Aug, [facility] [place] [facility] [address] [id number] [place] [address] Aug, [facility] [place] [facility] [address] [id number] [place] [address] Aug, [facility] [place] [facility] [address] [id number] [place] [address] Jun, [facility] [address] [id number] [place] [address] Jun, [facility] [place] [facility] [address] [id number] [place] [address] Apr, [facility] [address] [id number] [place] [address] Apr, [facility] [address] [id number] [place] [address] March, [facility] [address] [id number] [place] [address] Feb, [facility] [address] [id number] [place] [address] Feb, [facility] [address] [id number] [place] [address] Jan, [facility] [address] [id number] [place] [address] Dec, [facility] [address] [id number] [place] [address] Dec, [facility] [address] [id number] [place] [address] Dec, [facility] [address] [id number] [place] [address] Nov, [facility] [address] [id number] [place] [address] Nov, [facility] [place] [facility] [address] [id number] [place] [address] Nov, [facility] [place] [facility] [address] [id number] [place] [address] Oct, [facility] [address] [id number] [place] [address] Oct, [facility] [place] [facility] [address] [id number] [place] [address] Sep, [facility] [place] [facility] [address] [id number] [place] [address] Sep, [facility] [place] [facility] [address] [id number] [place] [address] Aug, [facility] [place] [facility] [address] [id number] [place] [address] Jul, [facility] [place] [facility] [address] [id number] [place] [address] May, [facility] [place] [facility] [address] [id number] [place] [address] May, [facility] [place] [facility] [address] [id number] [place] [address] March, [facility] [place] [facility] [address] [id number] [place] [address] Nov, [facility] [place] [facility] [address] [id number] [place] [address] Oct, [facility] [place] [facility] [address] [id number] [place] [address] Sep, [facility] [place] [facility] [address] [id number] [address] Sep, [facility] [place] [facility] [address] [id number] [place] [address] Sep, [facility] [place] [facility] [address] [id number] [place] [address] Aug, [facility] [place] [facility] [address] [id number] [place] [address] Aug, [facility] [place] [facility] [address] [id number] [place] [address] Oct, [facility] [place] [facility] [address] [address] 16 Oct, 2010 [facility] [id number] [address] Oct, [facility] [address] [address] Aug, [facility] [address] [address] Aug, [facility] [address] [address] Aug, [facility] [id number] [place] [address] Oct, [facility] [address] [address] Sep, [facility] [address] [address] Sep, [facility] [id number] [address] Jul, IMMUNIZATIONS No Known Immunizations SOCIAL HISTORY Never Assessed REASON FOR VISIT CCM note PLAN OF CARE VITAL SIGNS MEDICATIONS Unknown [...]
--- OUTSIDE RECORDS SUMMARY | 2019-06-07 07:38 | XMS REPORT ---
Author Author PATRICIA JARAMILLO Organization [facility] Address [address] [place] [address] Care Team Providers Care Hog Pusher Name Role Phone PATRICIA JARAMILLO Unavailable PROBLEMS Type Condition ICD9-CM Code ZRY60-HF Code Onset Dates Condition Status SNOMED Code Problem Tobacco abuse Z72.0 Active 67884311 Problem Essential hypertension I10 Active 03472450 Problem BMI 40.0-44.9, adult Z68.41 Active 905849291 Problem S/P cholecystectomy Z90.49 Active 300987033 Problem Shoulder fracture, right S42.91XA Active 33684899 Problem Other chronic pain G89.29 Active 44224640 Problem Chronic obstructive pulmonary disease, unspecified J44.9 Active [id number] ALLERGIES No Information ENCOUNTERS Encounter Location Date Diagnosis [place] [id number] [place] [address] Jul, Pain in thoracic spine M54.6 [facility] [id number] [place] [address] Jun, [facility] [id number] [place] [address] Jun, Therapeutic drug monitoring Z51.81 and Pain in thoracic spine M54.6 [facility] [id number] [place] [address] Jun, [facility] [id number] [place] [address] Jun, Pain in thoracic spine M54.6 [facility] [id number] [place] [address] May, Pain in thoracic spine M54.6 [facility] [id number] [address] May, [facility] [id number] [place] [address] Apr, [facility] [id number] [place] [address] Apr, Pain in thoracic spine M54.6 [facility] [id number] [place] [address] Apr, [facility] [id number] [place] [address] Apr, Medicare annual wellness visit, initial Z00.00 ; BMI 40.0-44.9, adult Z68.41 ; Chronic obstructive pulmonary disease, unspecified J44.9 ; Other chronic pain G89.29 and Essential hypertension I10 [place] [id number] [place] [address] March, Pain in thoracic spine M54.6 [facility] [id number] [place] [address] Feb, Pain in thoracic spine M54.6 [place] [id number] [place] [address] Feb, Pain in thoracic spine M54.6 ; Other chronic pain G89.29 ; Chronic obstructive pulmonary disease, unspecified J44.9 and Periumbilical hernia K42.9 [facility] [id number] [place] [address] Jan, Pain in thoracic spine M54.6 [place] [id number] [place] [address] Jan, Chronic obstructive pulmonary disease, unspecified J44.9 ; Encounter for immunization Z23 ; Screening, lipid Z13.220 ; Renal insufficiency N28.9 ; Pain in thoracic spine M54.6 and Other chronic pain G89.29 [facility] [id number] [place] [address] Sep, Irritation of right eye H57.8 [place] [address] [address] May, Chronic obstructive pulmonary disease, unspecified COPD type J44.9 [place] [address] [address] March, [place] [address] [address] Oct, Medicare annual wellness visit, subsequent Z00.00 ; Encounter for immunization Z23 and S/P cholecystectomy Z90.49 [place] [address] [address] Oct, [place] [address] [address] Sep, [facility] [address] [address] Aug, Wheezing R06.2 and Community acquired pneumonia J18.9 [place] [address] [address] March, Shoulder fracture, right, with routine healing, subsequent encounter S42.91XD [place] [address] [address] Feb, Shoulder fracture, right S42.91XA [place] [address] [address] Feb, Shoulder pain M25.519 [facility] [address] [address] Feb, [facility] [address] [address] Feb, Right shoulder pain M25.511 [place] [address] [address] Feb, [place] [id number] [place] [address] Jan, Renal insufficiency N28.9 [facility] [address] [address] 18 Dec, 2015 [facility] [id number] [place] [address] Dec, Bronchitis J40 [facility] [address] [address] Dec, [facility] [address] [address] Dec, [facility] [id number] [place] [address] Nov, [facility] [id number] [place] [address] Oct, Renal insufficiency N28.9 [facility] [id number] [place] [address] 11 Oct, 2015 Screening, lipid Z13.220 [place] [address] [address] 10 Oct, 2015 Chronic obstructive pulmonary disease, unspecified COPD type J44.9 ; Gastroesophageal reflux disease, esophagitis presence not specified K21.9 ; Dysthymia F34.1 and Screening, lipid Z13.220 [place] [id number] [place] [address] Jun, [facility] [id number] [place] [address] Jun, Sleep apnea 780.57 and COPD (chronic obstructive pulmonary disease) 496 [facility] [id number] [place] [address] Apr, COPD (chronic obstructive pulmonary disease) 496 [facility] [id number] [place] [address] Feb, [facility] [place] [facility] [address] [id number] [place] [address] 13 Feb, 2015 [facility] [place] [facility] [address] [id number] [place] [address] Nov, [facility] [place] [facility] [address] [id number] [place] [address] Nov, [facility] [place] [facility] [address] [id number] [place] [address] Nov, [facility] [place] [facility] [address] [id number] [place] [address] Nov, [facility] [place] [facility] [address] [id number] [place] [address] Oct, [facility] [place] [facility] [address] [id number] [place] [address] Oct, [facility] [place] [facility] [address] [id number] [place] [address] Oct, [facility] [place] [facility] [address] [id number] [place] [address] Oct, [facility] [place] [facility] [address] [id number] [place] [address] Oct, [facility] [place] [facility] [address] [id number] [place] [address] Oct, [facility] [place] [facility] [address] [id number] [place] [address] Oct, [facility] [place] [facility] [address] [id number] [place] [address] Oct, [facility] [place] [facility] [address] [id number] [place] [address] March, [facility] [place] [facility] [address] [id number] [place] [address] March, [facility] [place] [facility] [address] [id number] [place] [address] March, [facility] [place] [facility] [address] [id number] [place] [address] March, [facility] [place] [facility] [address] [id number] [place] [address] Feb, [facility] [place] [facility] [address] [id number] [place] [address] Feb, [facility] [place] [facility] [address] [id number] [place] [address] Feb, [facility] [place] [facility] [address] [id number] [place] [address] Feb, [facility] [place] [facility] [address] [id number] [place] [address] Feb, [facility] [place] [facility] [address] [id number] [place] [address] Feb, [facility] [place] [facility] [address] [id number] [place] [address] Jan, [facility] [place] [facility] [address] [id number] [place] [address] Jan, [facility] [place] [facility] [address] [id number] [place] [address] Nov, [facility] [place] [facility] [address] [id number] [place] [address] Nov, [facility] [place] [facility] [address] [id number] [place] [address] Nov, [facility] [place] [facility] [address] [id number] [place] [address] Aug, [facility] [place] [facility] [address] [id number] [place] [address] Aug, [facility] [place] [facility] [address] [id number] [place] [address] Aug, [facility] [place] [facility] [address] [id number] [place] [address] Jun, [facility] [address] [id number] [place] [address] Jun, [facility] [place] [facility] [address] [id number] [place] [address] Apr, [facility] [address] [id number] [place] [address] Apr, [facility] [address] [id number] [place] [address] March, [facility] [address] [id number] [place] [address] Feb, [facility] [address] [id number] [place] [address] Feb, [facility] [address] [id number] [place] [address] Jan, [facility] [address] [id number] [place] [address] Dec, [facility] [address] [id number] [place] [address] Dec, [facility] [address] [id number] [place] [address] Dec, [facility] [address] [id number] [place] [address] Nov, [facility] [address] [id number] [place] [address] Nov, [facility] [place] [facility] [address] [id number] [place] [address] Nov, [facility] [place] [facility] [address] [id number] [place] [address] Oct, [facility] [address] [id number] [place] [address] Oct, [facility] [place] [facility] [address] [id number] [place] [address] Sep, [facility] [place] [facility] [address] [id number] [place] [address] Sep, [facility] [place] [facility] [address] [id number] [place] [address] Aug, [facility] [place] [facility] [address] [id number] [place] [address] Jul, [facility] [place] [facility] [address] [id number] [place] [address] May, [facility] [place] [facility] [address] [id number] [place] [address] May, [facility] [place] [facility] [address] [id number] [place] [address] March, [facility] [place] [facility] [address] [id number] [place] [address] Nov, [facility] [place] [facility] [address] [id number] [place] [address] Oct, [facility] [place] [facility] [address] [id number] [place] [address] Sep, [facility] [place] [facility] [address] [id number] [address] Sep, [facility] [place] [facility] [address] [id number] [place] [address] Sep, [facility] [place] [facility] [address] [id number] [place] [address] Aug, [facility] [place] [facility] [address] [id number] [place] [address] Aug, [facility] [place] [facility] [address] [id number] [place] [address] Oct, [facility] [place] [facility] [id number] [address] 16 Oct, 2010 [facility] [id number] [address] 16 Oct, 2010 [facility] [address], [place] [address] Aug, [facility] [address], [place] [address] Aug, [facility] [address], [place] [address] Aug, [facility] [id number] [place] [address] Oct, [facility] [address], [place] [address] Sep, [facility] [address], [place] [address] Sep, [facility] [id number] [address] Jul, IMMUNIZATIONS No Known Immunizations SOCIAL HISTORY Never Assessed REASON FOR VISIT Controlled Med Refill 08/01/18 PLAN OF CARE VITAL SIGNS MEDICATIONS Medication [...]
--- OUTSIDE RECORDS SUMMARY | 2019-06-07 07:39 | XMS REPORT ---
Author Author PATRICIA JARAMILLO Organization [facility] Address [address] [place] [address] Care Team Providers Care Golf Course Equipment Operator Name Role Phone PATRICIA JARAMILLO Unavailable PROBLEMS Type Condition ICD9-CM Code [id number] Code Onset Dates Condition Status SNOMED Code Problem Tobacco abuse Z72.0 Active 29522379 Problem Essential hypertension I10 Active 31546234 Problem BMI 40.0-44.9, adult Z68.41 Active 531119718 Problem S/P cholecystectomy Z90.49 Active 205223728 Problem Shoulder fracture, right S42.91XA Active 69780131 Problem Other chronic pain G89.29 Active 99338787 Problem Chronic obstructive pulmonary disease, unspecified J44.9 Active 53088108 ALLERGIES No Information ENCOUNTERS Encounter Location Date Diagnosis [place] [id number] [place] [address] Jul, Pain in thoracic spine M54.6 [facility] [id number] [place] [address] Jun, [facility] [id number] [place] [address] Jun, Therapeutic drug monitoring Z51.81 and Pain in thoracic spine M54.6 [facility] [id number] [place] [address] Jun, [facility] [id number] [place] [address] Jun, Pain in thoracic spine M54.6 [facility] [id number] [place] [address] May, Pain in thoracic spine M54.6 [facility] [id number] [address] May, [facility] [id number] [place] [address] Apr, [facility] [id number] [place] [address] Apr, Pain in thoracic spine M54.6 [facility] [id number] [place] [address] Apr, [facility] [id number] [place] [address] Apr, Medicare annual wellness visit, initial Z00.00 ; BMI 40.0-44.9, adult Z68.41 ; Chronic obstructive pulmonary disease, unspecified J44.9 ; Other chronic pain G89.29 and Essential hypertension I10 [place] [id number] [place] [address] March, Pain in thoracic spine M54.6 [facility] [id number] [place] [address] Feb, Pain in thoracic spine M54.6 [place] [id number] [place] [address] Feb, Pain in thoracic spine M54.6 ; Other chronic pain G89.29 ; Chronic obstructive pulmonary disease, unspecified J44.9 and Periumbilical hernia K42.9 [facility] [id number] [place] [address] Jan, Pain in thoracic spine M54.6 [place] [id number] [place] [address] Jan, Chronic obstructive pulmonary disease, unspecified J44.9 ; Encounter for immunization Z23 ; Screening, lipid Z13.220 ; Renal insufficiency N28.9 ; Pain in thoracic spine M54.6 and Other chronic pain G89.29 [facility] [id number] [place] [address] Sep, Irritation of right eye H57.8 [place] [address] [address] May, Chronic obstructive pulmonary disease, unspecified COPD type J44.9 [place] [address] [address] March, [place] [address] [address] Oct, Medicare annual wellness visit, subsequent Z00.00 ; Encounter for immunization Z23 and S/P cholecystectomy Z90.49 [place] [address] [address] Oct, [place] [address] [address] Sep, [facility] [address] [address] Aug, Wheezing R06.2 and Community acquired pneumonia J18.9 [place] [address] [address] March, Shoulder fracture, right, with routine healing, subsequent encounter S42.91XD [place] [address] [address] Feb, Shoulder fracture, right S42.91XA [place] [address] [address] Feb, Shoulder pain M25.519 [facility] [address] [address] Feb, [facility] [address] [address] Feb, Right shoulder pain M25.511 [place] [address] [address] Feb, [place] [id number] [place] [address] Jan, Renal insufficiency N28.9 [facility] [address] [address] 18 Dec, 2015 [facility] [id number] [place] [address] Dec, Bronchitis J40 [facility] [address] [address] Dec, [facility] [address] [address] Dec, [facility] [id number] [place] [address] Nov, [facility] [id number] [place] [address] Oct, Renal insufficiency N28.9 [facility] [id number] [place] [address] 11 Oct, 2015 Screening, lipid Z13.220 [place] [address] [address] 10 Oct, 2015 Chronic obstructive pulmonary disease, unspecified COPD type J44.9 ; Gastroesophageal reflux disease, esophagitis presence not specified K21.9 ; Dysthymia F34.1 and Screening, lipid Z13.220 [place] [id number] [place] [address] Jun, [facility] [id number] [place] [address] Jun, Sleep apnea 780.57 and COPD (chronic obstructive pulmonary disease) 496 [facility] [id number] [place] [address] Apr, COPD (chronic obstructive pulmonary disease) [address] [facility] [id number] [place] [address] Feb, [facility] [place] [facility] [address] [id number] [place] [address] 13 Feb, 2015 [facility] [place] [facility] [address] [id number] [place] [address] Nov, [facility] [place] [facility] [address] [id number] [place] [address] Nov, [facility] [place] [facility] [address] [id number] [place] [address] Nov, [facility] [place] [facility] [address] [id number] [place] [address] Nov, [facility] [place] [facility] [address] [id number] [place] [address] Oct, [facility] [place] [facility] [address] [id number] [place] [address] Oct, [facility] [place] [facility] [address] [id number] [place] [address] Oct, [facility] [place] [facility] [address] [id number] [place] [address] Oct, [facility] [place] [facility] [address] [id number] [place] [address] Oct, [facility] [place] [facility] [address] [id number] [place] [address] Oct, [facility] [place] [facility] [address] [id number] [place] [address] Oct, [facility] [place] [facility] [address] [id number] [place] [address] Oct, [facility] [place] [facility] [address] [id number] [place] [address] March, [facility] [place] [facility] [address] [id number] [place] [address] March, [facility] [place] [facility] [address] [id number] [place] [address] March, [facility] [place] [facility] [address] [id number] [place] [address] March, [facility] [place] [facility] [address] [id number] [place] [address] Feb, [facility] [place] [facility] [address] [id number] [place] [address] Feb, [facility] [place] [facility] [address] [id number] [place] [address] Feb, [facility] [place] [facility] [address] [id number] [place] [address] Feb, [facility] [place] [facility] [address] [id number] [place] [address] Feb, [facility] [place] [facility] [address] [id number] [place] [address] Feb, [facility] [place] [facility] [address] [id number] [place] [address] Jan, [facility] [place] [facility] [address] [id number] [place] [address] Jan, [facility] [place] [facility] [address] [id number] [place] [address] Nov, [facility] [place] [facility] [address] [id number] [place] [address] Nov, [facility] [place] [facility] [address] [id number] [place] [address] Nov, [facility] [place] [facility] [address] [id number] [place] [address] Aug, [facility] [place] [facility] [address] [id number] [place] [address] Aug, [facility] [place] [facility] [address] [id number] [place] [address] Aug, [facility] [place] [facility] [address] [id number] [place] [address] Jun, [facility] [address] [id number] [place] [address] Jun, [facility] [place] [facility] [address] [id number] [place] [address] Apr, [facility] [address] [id number] [place] [address] Apr, [facility] [address] [id number] [place] [address] March, [facility] [address] [id number] [place] [address] Feb, [facility] [address] [id number] [place] [address] Feb, [facility] [address] [id number] [place] [address] Jan, [facility] [address] [id number] [place] [address] Dec, [facility] [address] [id number] [place] [address] Dec, [facility] [address] [id number] [place] [address] Dec, [facility] [address] [id number] [place] [address] Nov, [facility] [address] [id number] [place] [address] Nov, [facility] [place] [facility] [address] [id number] [place] [address] Nov, [facility] [place] [facility] [address] [id number] [place] [address] Oct, [facility] [address] [id number] [place] [address] Oct, [facility] [place] [facility] [address] [id number] [place] [address] Sep, [facility] [place] [facility] [address] [id number] [place] [address] Sep, [facility] [place] [facility] [address] [id number] [place] [address] Aug, [facility] [place] [facility] [address] [id number] [place] [address] Jul, [facility] [place] [facility] [address] [id number] [place] [address] May, [facility] [place] [facility] [address] [id number] [place] [address] May, [facility] [place] [facility] [address] [id number] [place] [address] March, [facility] [place] [facility] [address] [id number] [place] [address] Nov, [facility] [place] [facility] [address] [id number] [place] [address] Oct, [facility] [place] [facility] [address] [id number] [place] [address] Sep, [facility] [place] [facility] [address] [id number] [address] Sep, [facility] [place] [facility] [address] [id number] [place] [address] Sep, [facility] [place] [facility] [address] [id number] [place] [address] Aug, [facility] [place] [facility] [address] [id number] [place] [address] Aug, [facility] [place] [facility] [address] [id number] [place] [address] Oct, [facility] [place] [facility] [address] [address] 16 Oct, 2010 [facility] [id number] [address] Oct, [facility] [address] [address] Aug, [facility] [address] [address] Aug, [facility] [address] [address] Aug, [facility] [id number] [place] [address] Oct, [facility] [address] [address] Sep, [facility] [address] [address] Sep, [facility] [id number] [address] Jul, IMMUNIZATIONS No Known Immunizations SOCIAL HISTORY [...]
--- OUTSIDE RECORDS SUMMARY | 2019-06-07 07:39 | XMS REPORT ---
Author Author PATRICIA JARAMILLO Organization [facility] Address [address] [place] [address] Care Team Providers Care Placement Manager Name Role Phone PATRICIA JARAMILLO Unavailable PROBLEMS Type Condition ICD9-CM Code IHV96-LX Code Onset Dates Condition Status SNOMED Code Problem Tobacco abuse Z72.0 Active 85198070 Problem Essential hypertension I10 Active 25263449 Problem BMI 40.0-44.9, adult Z68.41 Active 737817475 Problem S/P cholecystectomy Z90.49 Active 796203942 Problem Shoulder fracture, right S42.91XA Active 41784800 Problem Other chronic pain G89.29 Active 86056137 Problem Chronic obstructive pulmonary disease, unspecified J44.9 Active [id number] ALLERGIES No Information ENCOUNTERS Encounter Location Date Diagnosis [place] [id number] [place] [address] Jun, [place] [id number] [place] [address] Jun, Therapeutic drug monitoring Z51.81 and Pain in thoracic spine M54.6 [facility] [id number] [place] [address] Jun, [facility] [id number] [place] [address] Jun, Pain in thoracic spine M54.6 [facility] [id number] [place] [address] May, Pain in thoracic spine M54.6 [facility] [id number] [place] [address] May, [facility] [id number] [place] [address] Apr, [facility] [id number] [place] [address] Apr, Pain in thoracic spine M54.6 [facility] [id number] [place] [address] Apr, [facility] [id number] [place] [address] Apr, Medicare annual wellness visit, initial Z00.00 ; BMI 40.0-44.9, adult Z68.41 ; Chronic obstructive pulmonary disease, unspecified J44.9 ; Other chronic pain G89.29 and Essential hypertension I10 [place] [id number] [place] [address] March, Pain in thoracic spine M54.6 [facility] [id number] [place] [address] Feb, Pain in thoracic spine M54.6 [facility] [id number] [place] [address] Feb, Pain in thoracic spine M54.6 ; Other chronic pain G89.29 ; Chronic obstructive pulmonary disease, unspecified J44.9 and Periumbilical hernia K42.9 [facility] [id number] [place] [address] Jan, Pain in thoracic spine M54.6 [facility] [id number] [place] [address] Jan, Chronic obstructive pulmonary disease, unspecified J44.9 ; Encounter for immunization Z23 ; Screening, lipid Z13.220 ; Renal insufficiency N28.9 ; Pain in thoracic spine M54.6 and Other chronic pain G89.29 [facility] [id number] [place] [address] Sep, Irritation of right eye H57.8 [facility] [id number] [place] [address] May, Chronic obstructive pulmonary disease, unspecified COPD type J44.9 [place] [address] [address] March, [place] [address] [address] Oct, Medicare annual wellness visit, subsequent Z00.00 ; Encounter for immunization Z23 and S/P cholecystectomy Z90.49 [place] [address] [address] Oct, [place] [address] [address] Sep, [facility], demolished [address] [address] Aug, Wheezing R06.2 and Community acquired pneumonia J18.9 [place] [address] [address] March, Shoulder fracture, right, with routine healing, subsequent encounter S42.91XD [place] [address] [address] Feb, Shoulder fracture, right S42.91XA [place] [address] [address] Feb, Shoulder pain M25.519 [facility], [facility] [address] [address] Feb, [facility], [facility] [address] [address] Feb, Right shoulder pain M25.511 [place] [address] [address] 08 Feb, 2016 [place] [address] [address] 15 Jan, 2016 Renal insufficiency N28.9 [place] [id number] [place] [address] 18 Dec, 2015 [facility] [address] [address] Dec, Bronchitis J40 [facility] [id number] [place] [address] Dec, [facility] [address] [address] Dec, [facility] [address] [address] Nov, [facility] [address] [address] Oct, Renal insufficiency N28.9 [facility] [id number] [place] [address] Oct, Screening, lipid Z13.220 [facility] [id number] [place] [address] 10 Oct, 2015 Chronic obstructive pulmonary disease, unspecified COPD type J44.9 ; Gastroesophageal reflux disease, esophagitis presence not specified K21.9 ; Dysthymia F34.1 and Screening, lipid Z13.220 [facility] [id number] [place] [address] Jun, [facility] [id number] [place] [address] Jun, Sleep apnea 780.57 and COPD (chronic obstructive pulmonary disease) 496 [facility] [id number] [place] [address] Apr, COPD (chronic obstructive pulmonary disease) 496 [facility] [id number] [place] [address] 14 Feb, 2015 [facility] [id number] [place] [address] Feb, [facility] [address] [id number] [place] [address] Nov, [facility] [place] [facility] [address] [id number] [place] [address] Nov, [facility] [place] [facility] [address] [id number] [place] [address] Nov, [facility] [place] [facility] [address] [id number] [place] [address] 15 Nov, 2014 [facility] [place] [facility] [address] [id number] [place] [address] Oct, [facility] [place] [facility] [address] [id number] [place] [address] Oct, [facility] [place] [facility] [address] [id number] [place] [address] Oct, [facility] [place] [facility] [address] [id number] [place] [address] Oct, [facility] [place] [facility] [address] [id number] [place] [address] Oct, [facility] [place] [facility] [address] [id number] [place] [address] Oct, [facility] [place] [facility] [address] [id number] [place] [address] Oct, [facility] [place] [facility] [address] [id number] [place] [address] Oct, [facility] [place] [facility] [address] [id number] [place] [address] March, [facility] [place] [facility] [address] [id number] [place] [address] March, [facility] [place] [facility] [address] [id number] [place] [address] March, [facility] [place] [facility] [address] [id number] [place] [address] March, [facility] [place] [facility] [address] [id number] [place] [address] Feb, [facility] [place] [facility] [address] [id number] [place] [address] Feb, [facility] [place] [facility] [address] [id number] [place] [address] Feb, [facility] [place] [facility] [address] [id number] [place] [address] Feb, [facility] [place] [facility] [address] [id number] [place] [address] Feb, [facility] [place] [facility] [address] [id number] [place] [address] Feb, [facility] [place] [facility] [address] [id number] [place] [address] Jan, [facility] [place] [facility] [address] [id number] [place] [address] Jan, [facility] [place] [facility] [address] [id number] [place] [address] Nov, [facility] [place] [facility] [address] [id number] [place] [address] Nov, [facility] [place] [facility] [address] [id number] [address] Nov, [facility] [place] [facility] [address] [id number] [address] Aug, [facility] [place] [facility] [address] [id number] [place] [address] Aug, [facility] [place] [facility] [address] [id number][place] [address] Aug, [facility] [place] [facility] [address] [id number] [place] [address] Jun, [facility] [place] [facility] [address] [id number] [place] [address] Jun, [facility] [address] [id number] [place] [address] Apr, [facility] [address] [id number] [place] [address] Apr, [facility] [address] [id number] [place] [address] March, [facility] [address] [id number] [place] [address] Feb, [facility] [address] [id number] [place] [address] Feb, [facility] [address] [id number] [place] [address] Jan, [facility] [address] [id number] [place] [address] Dec, [facility] [address] [id number] [place] [address] Dec, [facility] [address] [id number] [place] [address] Dec, [facility] [address] [id number] [place] [address] Nov, [facility] [address] [id number] [place] [address] Nov, [facility] [address] [id number] [place] [address] Nov, [facility] [address] [id number] [place] [address] Oct, [facility] [place] [facility] [address] [id number] [place] [address] Oct, [facility] [address] [id number] [place] [address] Sep, [facility] [place] [facility] [address] [id number] [place] [address] Sep, [facility] [place] [facility] [address] [id number] [place] [address] Aug, [facility] [place] [facility] [address] [id number] [place] [address] Jul, [facility] [place] [facility] [address] [id number] [place] [address] May, [facility] [place] [facility] [address] [id number] [place] [address] May, [facility] [place] [facility] [address] [id number] [place] [address] March, [facility] [place] [facility] [address] [id number] [place] [address] Nov, [facility] [place] [facility] [address] [id number] [place] [address] Oct, [facility] [place] [facility] [address] [id number] [place] [address] Sep, [facility] [place] [facility] [address] [id number][place] [address] Sep, [facility] [place] [facility] [address] [id number], [place] [address] Sep, [facility] [place] [facility] [address] [id number], [place] [address] Aug, [facility] [place] [facility] [address] [id number] [place] [address] Aug, [facility] [place] [facility] [address] [id number], [place] [address] Oct, [facility] [place] [facility] [address] [id number], [place] [address] Oct, [facility] [place] [facility] [address] [id number][place] [address] Oct, [facility] [address] [id number] [address] Aug, [facility] [address] [address] Aug, [facility] [id number] [address] Aug, [facility] [address] [address] Oct, [facility] [address] [address] Sep, [facility] [address] [address] Sep, [facility] [address] [address] Jul, IMMUNIZATIONS No Known Immunizations SOCIAL HISTORY Never Assessed REASON FOR VISIT Controlled Med Refill 06/06/18 PLAN OF CARE VITAL SIGNS MEDICATIONS Medication [...]
--- OUTSIDE RECORDS SUMMARY | 2019-06-07 07:39 | XMS REPORT ---
Author Author PATRICIA JARAMILLO Organization [facility] [place] Address [address] [place] [address] Care Team Providers Care Inspector Water Pollution Control Name Role Phone PATRICIA JARAMILLO Unavailable PROBLEMS Type Condition ICD9-CM Code PWW34-ST Code Onset Dates Condition Status SNOMED Code Problem Tobacco abuse Z72.0 Active 49121883 Problem Essential hypertension I10 Active 13976809 Problem BMI 40.0-44.9, adult Z68.41 Active 007862614 Problem S/P cholecystectomy Z90.49 Active 976811659 Problem Shoulder fracture, right S42.91XA Active 33802172 Problem Other chronic pain G89.29 Active 40567803 Problem Chronic obstructive pulmonary disease, unspecified J44.9 Active 86307482 ALLERGIES No Information ENCOUNTERS Encounter Location Date Diagnosis [place] [id number] [place] [address] Jul, Pain in thoracic spine M54.6 [facility] [place] [id number] [place] [address] Jun, [facility] [place] [id number] [place] [id number] Jun, Therapeutic drug monitoring Z51.81 and Pain in thoracic spine M54.6 [facility] [place] [id number] [place] [address] Jun, [facility] [place] [id number] [place] [address] Jun, Pain in thoracic spine M54.6 [facility] [place] [id number] [place] [address] May, Pain in thoracic spine M54.6 [facility] [place] [id number] [address] May, [facility] [place] [id number] [place] [address] Apr, [facility] [place] [id number] [place] [address] Apr, Pain in thoracic spine M54.6 [facility] [place] [id number] [place] [address] Apr, [facility] [place] [id number] [place] [address] Apr, Medicare annual wellness visit, initial Z00.00 ; BMI 40.0-44.9, adult Z68.41 ; Chronic obstructive pulmonary disease, unspecified J44.9 ; Other chronic pain G89.29 and Essential hypertension I10 [place] [id number] [place] [address] March, Pain in thoracic spine M54.6 [facility] [place] [id number] [place] [address] Feb, Pain in thoracic spine M54.6 [place] [id number] [place] [address] Feb, Pain in thoracic spine M54.6 ; Other chronic pain G89.29 ; Chronic obstructive pulmonary disease, unspecified J44.9 and Periumbilical hernia K42.9 [facility] [place] [id number] [place] [address] Jan, Pain in thoracic spine M54.6 [place] [id number] [place] [address] Jan, Chronic obstructive pulmonary disease, unspecified J44.9 ; Encounter for immunization Z23 ; Screening, lipid Z13.220 ; Renal insufficiency N28.9 ; Pain in thoracic spine M54.6 and Other chronic pain G89.29 [facility] [id number] [place] [address] Sep, Irritation of right eye H57.8 [place] [address] [address] May, Chronic obstructive pulmonary disease, unspecified COPD type J44.9 [place] [address] [address] March, [place] [address] [address] Oct, Medicare annual wellness visit, subsequent Z00.00 ; Encounter for immunization Z23 and S/P cholecystectomy Z90.49 [place] [address] [address] Oct, [place] [address] [address] Sep, [facility] [address] [address] Aug, Wheezing R06.2 and Community acquired pneumonia J18.9 [place] [address] [address] March, Shoulder fracture, right, with routine healing, subsequent encounter S42.91XD [place] [address] [address] Feb, Shoulder fracture, right S42.91XA [place] [address] [address] Feb, Shoulder pain M25.519 [facility] [address] [address] Feb, [facility] [address] [address] Feb, Right shoulder pain M25.511 [place] [address] [address] Feb, [place] [id number] [place] [address] Jan, Renal insufficiency N28.9 [facility] [place] [address] [address] 18 Dec, 2015 [facility] [place] [id number] [place] [address] Dec, Bronchitis J40 [facility] [place] [address] [address] Dec, [facility] [place] [address] [address] Dec, [facility] [place] [id number] [place] [address] Nov, [facility] [place] [id number] [place] [address] Oct, Renal insufficiency N28.9 [facility] [place] [id number] [place] [address] 11 Oct, 2015 Screening, lipid Z13.220 [place] [address] [address] 10 Oct, 2015 Chronic obstructive pulmonary disease, unspecified COPD type J44.9 ; Gastroesophageal reflux disease, esophagitis presence not specified K21.9 ; Dysthymia F34.1 and Screening, lipid Z13.220 [place] [id number] [place] [address] Jun, [facility] [place] [id number] [place] [address] Jun, Sleep apnea 780.57 and COPD (chronic obstructive pulmonary disease) 496 [facility] [place] [id number] [place] [address] Apr, COPD (chronic obstructive pulmonary disease) 496 [facility] [place] [id number] [place] [address] Feb, [facility] [place] [facility] [address] [id number] [place] [address] 13 Feb, 2015 [facility] [place] [facility] [address] [id number] [place] [address] Nov, [facility] [place] [facility] [address] [id number] [place] [address] Nov, [facility] [place] [facility] [address] [id number] [place] [address] Nov, [facility] [place] [facility] [address] [id number] [place] [address] Nov, [facility] [place] [facility] [address] [id number] [place] [address] Oct, [facility] [place] [facility] [address] [id number] [place] [address] Oct, [facility] [place] [facility] [address] [id number] [place] [address] Oct, [facility] [place] [facility] [address] [id number] [place] [address] Oct, [facility] [place] [facility] [address] [id number] [place] [address] Oct, [facility] [place] [facility] [address] [id number] [place] [address] Oct, [facility] [place] [facility] [address] [id number] [place] [address] Oct, [facility] [place] [facility] [address] [id number] [place] [address] Oct, [facility] [place] [facility] [address] [id number] [place] [address] March, [facility] [place] [facility] [address] [id number] [place] [address] March, [facility] [place] [facility] [address] [id number] [place] [address] March, [facility] [place] [facility] [address] [id number] [place] [address] March, [facility] [place] [facility] [address] [id number] [place] [address] Feb, [facility] [place] [facility] [address] [id number] [place] [address] Feb, [facility] [place] [facility] [address] [id number] [place] [address] Feb, [facility] [place] [facility] [address] [id number] [place] [address] Feb, [facility] [place] [facility] [address] [id number] [place] [address] Feb, [facility] [place] [facility] [address] [id number] [place] [address] Feb, [facility] [place] [facility] [address] [id number] [place] [address] Jan, [facility] [place] [facility] [address] [id number] [place] [address] Jan, [facility] [place] [facility] [address] [id number] [place] [address] Nov, [facility] [place] [facility] [address] [id number] [place] [address] Nov, [facility] [place] [facility] [address] [id number] [place] [address] Nov, [facility] [place] [facility] [address] [id number] [place] [address] Aug, [facility] [place] [facility] [address] [id number] [place] [address] Aug, [facility] [place] [facility] [address] [id number] [place] [address] Aug, [facility] [place] [facility] [address] [id number] [place] [address] Jun, [facility] [address] [id number] [place] [address] Jun, [facility] [place] [facility] [address] [id number] [place] [address] Apr, [facility] [address] [id number] [place] [address] Apr, [facility] [address] [id number] [place] [address] March, [facility] [address] [id number] [place] [address] Feb, [facility] [address] [id number] [place] [address] Feb, [facility] [address] [id number] [place] [address] Jan, [facility] [address] [id number] [place] [address] Dec, [facility] [address] [id number] [place] [address] Dec, [facility] [address] [id number] [place] [address] Dec, [facility] [address] [id number] [place] [address] Nov, [facility] [address] [id number] [place] [address] Nov, [facility] [place] [facility] [address] [id number] [place] [address] Nov, [facility] [place] [facility] [address] [id number] [place] [address] Oct, [facility] [address] [id number] [place] [address] Oct, [facility] [place] [facility] [address] [id number] [place] [address] Sep, [facility] [place] [facility] [address] [id number] [place] [address] Sep, [facility] [place] [facility] [address] [id number] [place] [address] Aug, [facility] [place] [facility] [address] [id number] [place] [address] Jul, [facility] [place] [facility] [address] [id number] [place] [address] May, [facility] [place] [facility] [address] [id number] [place] [address] May, [facility] [place] [facility] [address] [id number] [place] [address] March, [facility] [place] [facility] [address] [id number] [place] [address] Nov, [facility] [place] [facility] [address] [id number] [place] [address] Oct, [facility] [place] [facility] [address] [id number] [place] [address] Sep, [facility] [place] [facility] [address] [id number] [address] Sep, [facility] [place] [facility] [address] [id number] [place] [address] Sep, [facility] [place] [facility] [address] [id number] [place] [address] Aug, [facility] [place] [facility] [address] [id number] [place] [address] Aug, [facility] [place] [facility] [address] [id number] [place] [address] Oct, [facility] [place] [facility] [id number] [address] 16 Oct, 2010 [facility] [place] [id number] [address] 16 Oct, 2010 [facility] [place] [address] [address] Aug, [facility] [place] [address] [address] Aug, [facility] [place] [address] [address] Aug, [facility] [place] [id number] [place] [address] Oct, [facility] [place] [address] [address] Sep, [facility] [place] [address] [address] Sep, [facility] [place] [id number] [address] Jul, IMMUNIZATIONS No Known Immunizations SOCIAL HISTORY Never Assessed REASON FOR VISIT Controlled Med Refill 07/04/18 PLAN OF CARE VITAL SIGNS MEDICATIONS Medication [...]
--- OUTSIDE RECORDS SUMMARY | 2019-06-07 07:40 | XMS REPORT ---
Author Author PATRICIA JARAMILLO Organization [facility] Address [address] [place] [address] Care Team Providers Care Chucking Lathe Operator Name Role Phone PATRICIA JARAMILLO Unavailable PROBLEMS Type Condition ICD9-CM Code EUU59-ES Code Onset Dates Condition Status SNOMED Code Problem Tobacco abuse Z72.0 Active 82283394 Problem Essential hypertension I10 Active 87639619 Problem BMI 40.0-44.9, adult Z68.41 Active 278304875 Problem S/P cholecystectomy Z90.49 Active 112127767 Problem Shoulder fracture, right S42.91XA Active 99294667 Problem Other chronic pain G89.29 Active 09343558 Problem Chronic obstructive pulmonary disease, unspecified J44.9 Active 68246022 ALLERGIES No Information ENCOUNTERS Encounter Location Date Diagnosis [place] [id number] [place] [address] Jun, [place] [id number] [place] [address] Jun, Therapeutic drug monitoring Z51.81 and Pain in thoracic spine M54.6 [facility] [id number] [place] [address] Jun, [facility] [id number] [place] [address] Jun, Pain in thoracic spine M54.6 [facility] [id number] [place] [address] May, Pain in thoracic spine M54.6 [facility] [id number] [place] [address] May, [facility] [id number] [place] [address] Apr, [facility] [id number] [place] [address] Apr, Pain in thoracic spine M54.6 [facility] [id number] [place] [address] Apr, [facility] [id number] [place] [address] Apr, Medicare annual wellness visit, initial Z00.00 ; BMI 40.0-44.9, adult Z68.41 ; Chronic obstructive pulmonary disease, unspecified J44.9 ; Other chronic pain G89.29 and Essential hypertension I10 [place] [id number] [place] [address] March, Pain in thoracic spine M54.6 [facility] [id number] [place] [address] Feb, Pain in thoracic spine M54.6 [facility] [id number] [place] [address] Feb, Pain in thoracic spine M54.6 ; Other chronic pain G89.29 ; Chronic obstructive pulmonary disease, unspecified J44.9 and Periumbilical hernia K42.9 [facility] [id number] [place] [address] Jan, Pain in thoracic spine M54.6 [facility] [id number] [place] [address] Jan, Chronic obstructive pulmonary disease, unspecified J44.9 ; Encounter for immunization Z23 ; Screening, lipid Z13.220 ; Renal insufficiency N28.9 ; Pain in thoracic spine M54.6 and Other chronic pain G89.29 [facility] [id number] [place] [address] Sep, Irritation of right eye H57.8 [facility] [id number] [place] [address] May, Chronic obstructive pulmonary disease, unspecified COPD type J44.9 [place] [address] [address] March, [place] [address] [address] Oct, Medicare annual wellness visit, subsequent Z00.00 ; Encounter for immunization Z23 and S/P cholecystectomy Z90.49 [place] [address] [address] Oct, [place] [address] [address] Sep, [facility] [address] [address] Aug, Wheezing R06.2 and Community acquired pneumonia J18.9 [place] [address] [address] March, Shoulder fracture, right, with routine healing, subsequent encounter S42.91XD [place] [address] [address] Feb, Shoulder fracture, right S42.91XA [place] [address] [address] Feb, Shoulder pain M25.519 [facility] [address] [address] Feb, [facility] [address] [address] Feb, Right shoulder pain M25.511 [place] [address] [address] 08 Feb, 2016 [place] [address] [address] 15 Jan, 2016 Renal insufficiency N28.9 [place] [id number] [place] [address] 18 Dec, 2015 [facility] [address] [address] Dec, Bronchitis J40 [facility] [id number] [place] [address] Dec, [facility] [address] [address] Dec, [facility] [address] [address] Nov, [facility] [address] [address] Oct, Renal insufficiency N28.9 [facility] [id number] [place] [address] Oct, Screening, lipid Z13.220 [facility] [id number] [place] [address] 10 Oct, 2015 Chronic obstructive pulmonary disease, unspecified COPD type J44.9 ; Gastroesophageal reflux disease, esophagitis presence not specified K21.9 ; Dysthymia F34.1 and Screening, lipid Z13.220 [facility] [id number] [place] [address] Jun, [facility] [id number] [place] [address] Jun, Sleep apnea 780.57 and COPD (chronic obstructive pulmonary disease) 496 [facility] [id number] [place] [address] Apr, COPD (chronic obstructive pulmonary disease) 496 [facility] [id number] [place] [address] 14 Feb, 2015 [facility] [id number] [place] [address] Feb, [facility] [address] [id number] [place] [address] Nov, [facility] [place] [facility] [address] [id number] [place] [address] Nov, [facility] [place] [facility] [address] [id number] [place] [address] Nov, [facility] [place] [facility] [address] [id number] [place] [address] 15 Nov, 2014 [facility] [place] [facility] [address] [id number] [place] [address] Oct, [facility] [place] [facility] [address] [id number] [place] [address] Oct, [facility] [place] [facility] [address] [id number] [place] [address] Oct, [facility] [place] [facility] [address] [id number] [place] [address] Oct, [facility] [place] [facility] [address] [id number] [place] [address] Oct, [facility] [place] [facility] [address] [id number] [place] [address] Oct, [facility] [place] [facility] [address] [id number] [place] [address] Oct, [facility] [place] [facility] [address] [id number] [place] [address] Oct, [facility] [place] [facility] [address] [id number] [place] [address] March, [facility] [place] [facility] [address] [id number] [place] [address] March, [facility] [place] [facility] [address] [id number] [place] [address] March, [facility] [place] [facility] [address] [id number] [place] [address] March, [facility] [place] [facility] [address] [id number] [place] [address] Feb, [facility] [place] [facility] [address] [id number] [place] [address] Feb, [facility] [place] [facility] [address] [id number] [place] [address] Feb, [facility] [place] [facility] [address] [id number] [place] [address] Feb, [facility] [place] [facility] [address] [id number] [place] [address] Feb, [facility] [place] [facility] [address] [id number] [place] [address] Feb, [facility] [place] [facility] [address] [id number] [place] [address] Jan, [facility] [place] [facility] [address] [id number] [place] [address] Jan, [facility] [place] [facility] [address] [id number] [place] [address] Nov, [facility] [place] [facility] [address] [id number] [place] [address] Nov, [facility] [place] [facility] [address] [id number], [place] [address] Nov, [facility] [place] [facility] [address] [id number], [place] [address] Aug, [facility] [place] [facility] [address] [id number] [place] [address] Aug, [facility] [place] [facility] [address] [id number], [place] [address] Aug, [facility] [place] [facility] [address] [id number] [place] [address] Jun, [facility] [place] [facility] [address] [id number] [place] [address] Jun, [facility] [address] [id number] [place] [address] Apr, [facility] [address] [id number] [place] [address] Apr, [facility] [address] [id number] [place] [address] March, [facility] [address] [id number] [place] [address] Feb, [facility] [address] [id number] [place] [address] Feb, [facility] [address] [id number] [place] [address] Jan, [facility] [address] [id number] [place] [address] Dec, [facility] [address] [id number] [place] [address] Dec, [facility] [address] [id number] [place] [address] Dec, [facility] [address] [id number] [place] [address] Nov, [facility] [address] [id number] [place] [address] Nov, [facility] [address] [id number] [place] [address] Nov, [facility] [address] [id number] [place] [address] Oct, [facility] [place] [facility] [address] [id number] [place] [address] Oct, [facility] [address] [id number] [place] [address] Sep, [facility] [place] [facility] [address] [id number] [place] [address] Sep, [facility] [place] [facility] [address] [id number] [place] [address] Aug, [facility] [place] [facility] [address] [id number] [place] [address] Jul, [facility] [place] [facility] [address] [id number] [place] [address] May, [facility] [place] [facility] [address] [id number] [place] [address] May, [facility] [place] [facility] [address] [id number] [place] [address] March, [facility] [place] [facility] [address] [id number] [place] [address] Nov, [facility] [place] [facility] [address] [id number] [place] [address] Oct, [facility] [place] [facility] [address] [id number] [place] [address] Sep, [facility] [place] [facility] [address] [id number], [place] [address] Sep, [facility] [place] [facility] [address] [id number], [place] [address] Sep, [facility] [place] [facility] [address] [id number], [place] [address] Aug, [facility] [place] [facility] [address] [id number] [place] [address] Aug, [facility] [place] [facility] [address] [id number], [place] [address] Oct, [facility] [place] [facility] [address] [id number], [place] [address] Oct, [facility] [place] [facility] [address] [id number], [place] [address] Oct, [facility] [address] [place] [address] Aug, [facility] [address], [place] [address] Aug, [facility] [address], [place] [address] Aug, [facility] [id number] [place] [address] Oct, [facility] [address], [place] [address] Sep, [facility] [address], [place] [address] Sep, [facility] [address], [place] [address] Jul, IMMUNIZATIONS No Known Immunizations SOCIAL HISTORY Never Assessed REASON FOR VISIT [facility] call PLAN OF CARE VITAL SIGNS MEDICATIONS [...]
--- OUTSIDE RECORDS SUMMARY | 2019-06-07 07:40 | XMS REPORT ---
Author Author PATRICIA JARAMILLO Organization [facility] Address [address] [place] [address] Care Team Providers Care Industrial Hygienist Name Role Phone PATRICIA JARAMILLO Unavailable PROBLEMS Type Condition ICD9-CM Code FQJ43-TE Code Onset Dates Condition Status SNOMED Code Problem Tobacco abuse Z72.0 Active 01072307 Problem Essential hypertension I10 Active 35432153 Problem BMI 40.0-44.9, adult Z68.41 Active 986693594 Problem S/P cholecystectomy Z90.49 Active 087275562 Problem Shoulder fracture, right S42.91XA Active 09756704 Problem Other chronic pain G89.29 Active 80490946 Problem Chronic obstructive pulmonary disease, unspecified J44.9 Active 33927592 ALLERGIES Substance Reaction Event Type Date Status Penicillin V Potassium hives Drug Allergy Apr, Active Advair Diskus hives Drug Allergy Apr, Active ENCOUNTERS Encounter Location Date Diagnosis [place] [id number] [place] [address] Jun, [place] [address] [place] [id number] [place] [address] Jun, Therapeutic drug monitoring Z51.81 and Pain in thoracic spine M54.6 [facility] [address] [place] [id number] [place] [address] Jun, [place] [address] [place] [id number] [place] [address] Jun, Pain in thoracic spine M54.6 [facility] [address] [place] [id number] [place] [address] May, Pain in thoracic spine M54.6 [facility] [address] [place] [id number] [place] [address] May, [facility] [address] [place] [id number] [place] [address] Apr, [place] [address] [place] [id number] [place] [address] Apr, Pain in thoracic spine M54.6 [place] [address] [place] [id number] [place] [address] Apr, [facility] [address] [place] [id number] [place] [address] Apr, Medicare annual wellness visit, initial Z00.00 ; BMI 40.0-44.9, adult Z68.41 ; Chronic obstructive pulmonary disease, unspecified J44.9 ; Other chronic pain G89.29 and Essential hypertension I10 [place] [address] [place] [id number] [place] [address] March, Pain in thoracic spine M54.6 [place] [address] [address] Feb, Pain in thoracic spine M54.6 [place] [address] [address] Feb, Pain in thoracic spine M54.6 ; Other chronic pain G89.29 ; Chronic obstructive pulmonary disease, unspecified J44.9 and Periumbilical hernia K42.9 [place] [address] [place] [id number] [place] [address] Jan, Pain in thoracic spine M54.6 [place] [address] [place] [id number] [place] [address] Jan, Chronic obstructive pulmonary disease, unspecified J44.9 ; Encounter for immunization Z23 ; Screening, lipid Z13.220 ; Renal insufficiency N28.9 ; Pain in thoracic spine M54.6 and Other chronic pain G89.29 [facility] [address] [place] [id number] [place] [address] Sep, Irritation of right eye H57.8 [place] [address] [place] [id number] [place] [address] May, Chronic obstructive pulmonary disease, unspecified COPD type J44.9 [place] [address] [place] [id number] [place] [address] March, [place] [address] [address] Oct, Medicare annual wellness visit, subsequent Z00.00 ; Encounter for immunization Z23 and S/P cholecystectomy Z90.49 [place] [address] [address] Oct, [place] [address] [address] Sep, [facility] [address] [address] Aug, Wheezing R06.2 and Community acquired pneumonia J18.9 [place] [address] [address] March, Shoulder fracture, right, with routine healing, subsequent encounter S42.91XD [place] [address] [place] [id number] [place] [address] Feb, Shoulder fracture, right S42.91XA [place] [address] [address] Feb, Shoulder pain M25.519 [facility] [address] [place] [id number] [place] [address] Feb, [facility] [address] [address] Feb, Right shoulder pain M25.511 [place] [address] [address] Feb, [place] [address] [place] [address] Jan, Renal insufficiency N28.9 [facility] [address] [place] [id number] [place] [address] Dec, [facility] [address] [place] [id number] [place] [address] 16 Dec, 2015 Bronchitis J40 [facility] [address] [address] Dec, [facility] [address] [place] [id number] [place] [address] Dec, [facility] [address] [address] Nov, [facility] [address] [address] Oct, Renal insufficiency N28.9 [facility] [address] [address] Oct, Screening, lipid Z13.220 [place] [address] [place] [id number] [place] [address] 10 Oct, 2015 Chronic obstructive pulmonary disease, unspecified COPD type J44.9 ; Gastroesophageal reflux disease, esophagitis presence not specified K21.9 ; Dysthymia F34.1 and Screening, lipid Z13.220 [place] [address] [place] [id number] [place] [address] Jun, [facility] [address] [place] [id number] [place] [address] Jun, Sleep apnea 780.57 and COPD (chronic obstructive pulmonary disease) [address] [place] [address] [place] [id number] [place] [address] Apr, COPD (chronic obstructive pulmonary disease) 496 [facility] [address] [place] [id number] [place] [address] Feb, [facility] [address] [facility] [id number] [place] [address] Feb, [facility] [address] [id number] [place] [address] Nov, [facility] [place] [facility] [address] [id number] [place] [address] Nov, [facility] [address] [id number] [place] [address] Nov, [facility] [place] [facility] [address] [id number] [place] [address] Nov, [facility] [address] [id number] [place] [address] Oct, [facility] [place] [facility] [address] [id number] [place] [address] Oct, [facility] [address] [id number] [place] [address] Oct, [facility] [address] [id number] [place] [address] Oct, [facility] [place] [facility] [address] [id number] [place] [address] Oct, [facility] [address] [id number] [place] [address] Oct, [facility] [place] [facility] [address] [id number] [place] [address] Oct, [facility] [place] [facility] [address] [id number] [place] [address] Oct, [facility] [place] [facility] [address] [id number] [place] [address] March, [facility] [place] [facility] [address] [id number] [place] [address] March, [facility] [place] [facility] [address] [id number] [place] [address] March, [facility] [place] [facility] [address] [id number] [place] [address] March, [facility] [place] [facility] [address] [id number] [place] [address] Feb, [facility] [place] [facility] [address] [id number] [place] [address] Feb, [facility] [place] [facility] [address] [id number] [place] [address] Feb, [facility] [place] [facility] [address] [id number] [place] [address] Feb, [facility] [place] [facility] [address] [id number] [place] [address] Feb, [facility] [place] [facility] [address] [id number] [place] [address] Feb, [facility] [place] [facility] [address] [id number] [place] [address] Jan, [facility] [place] [facility] [address] [id number] [place] [address] Jan, [facility] [place] [facility] [address] [id number] [place] [address] Nov, [facility] [place] [facility] [address] [id number] [place] [address] Nov, [facility] [place] [facility] [address] [id number], [place] [address] Nov, [facility] [place] [facility] [address] [id number] [place] [address] Aug, [facility] [place] [facility] [address] [id number] [place] [address] Aug, [facility] [place] [facility] [address] [id number] [place] [address] Aug, [facility] [place] [facility] [address] [id number] [place] [address] Jun, [facility] [address] [id number] [place] [address] Jun, [facility] [place] [facility] [address] [id number] [place] [address] Apr, [facility] [place] [facility] [address] [id number] [place] [address] Apr, [facility] [place] [facility] [address] [id number] [place] [address] March, [facility] [address] [id number] [place] [address] Feb, [facility] [place] [facility] [address] [id number] [place] [address] Feb, [facility] [address] [id number] [place] [address] Jan, [facility] [place] [facility] [address] [id number] [place] [address] Dec, [facility] [place] [facility] [address] [id number] [place] [address] Dec, [facility] [address] [id number] [place] [address] Dec, [facility] [address] [id number] [place] [address] Nov, [facility] [place] [facility] [address] [id number] [place] [address] Nov, [facility] [place] [facility] [address] [id number] [place] [address] Nov, [facility] [place] [facility] [address] [id number] [place] [address] Oct, [facility] [place] [facility] [address] [id number] [place] [address] Oct, [facility] [place] [facility] [address] [id number] [place] [address] Sep, [facility] [place] [facility] [address] [id number] [place] [address] Sep, [facility] [place] [facility] [address] [id number] [place] [address] Aug, [facility] [place] [facility] [address] [id number] [place] [address] Jul, [facility] [place] [facility] [address] [id number] [place] [address] May, [facility] [place] [facility] [address] [id number] [place] [address] May, [facility] [address] [id number] [place] [address] March, [facility] [address] [id number] [place] [address] Nov, [facility] [place] [facility] [address] [id number] [place] [address] Oct, [facility] [place] [facility] [address] [id number] [place] [address] Sep, [facility] [place] [facility] [address] [id number] [place] [address] Sep, [facility] [place] [facility] [address] [id number] [place] [address] Sep, [facility] [place] [facility] [address] [id number] [place] [address] Aug, [facility] [place] [facility] [address] [id number] [place] [address] Aug, [facility] [place] [facility] [address] [id number] [place] [address] Oct, [facility] [place] [facility] [address] [id number], [place] [address] 16 Oct, 2010 [facility] [address] [id number] [address] 16 Oct, 2010 [facility] [address] [id number] [address] Aug, [facility] [id number] [address] Aug, [facility] [id number] [address] Aug, [facility] [address] [id number], [place] [address] Oct, [facility] [address] [id number], [place] [address] Sep, [facility] [id number] [address] Sep, [facility] [id number] [address] Jul, IMMUNIZATIONS No Known Immunizations SOCIAL HISTORY Never Assessed REASON FOR VISIT general physical WB-MA, Annual medicare visit, No major concerns PLAN OF CARE Activity Details Follow Up 1 Year Reason: VITAL SIGNS Height 66 in 2018-05-04 Weight 255 lbs 2018-05-04 Temperature 97.6 degrees Fahrenheit 2018-05-04 Heart Rate 94 bpm 2018-05-04 Respiratory Rate 20 2018-05-04 Oximetry on room air:96 % 2018-05-04 BMI 41.15 kg/m2 2018-05-04 Blood pressure systolic 118 mmHg 2018-05-04 Blood pressure diastolic 74 mmHg 2018-05-04 MEDICATIONS Medication Instructions Dosage Frequency Start Date End Date Duration Status Albuterol 0.083% by Inhalation route 4 times per day Feb, Active Incruse Ellipta 62.5 MCG/INH Inhalation Once a day 1 puff 24h Active Singulair 10 MG Orally Once a day 1 tablet in the evening 24h Active Atrovent 0.02 % 2.5 mL by Inhalation route 4 times per day PRN Feb, Active Oxygen 3L Active Tramadol HCl 50 MG Orally 3 times a day 1 tablet 8h 05 Jan, 2018 28 days Active Omeprazole 20 MG TAKE 1 CAPSULE BY MOUTH EVERY DAY 90 Active Breo Ellipta by inhalation route [address] Benavides Nov, Active Lisinopril 5 MG TAKE 1 TABLET BY MOUTH EVERY DAY 90 Active Wellbutrin XL 150 MG Orally Once a day 1 tablet in the morning 24h 90 days Active RESULTS No Results PROCEDURES Procedure Date Ordered Result Body Site [facility] VISIT IPPE/AWV May 04, 2018 ANNUAL DEVONTE VST; MARTHA PPS INIT May 04, 2018 PT TOBACCO SCREEN RCVD TLK May 04, 2018 FALL RISK ASSESSMENT DOCD May 04, 2018 INSTRUCTIONS MEDICATIONS ADMINISTERED No Known Medications MEDICAL (GENERAL) HISTORY Type Description Date Medical History sleep apnea Medical History emphysema Medical History heartburn Medical History broken back in two place Medical History broken right shoulder Surgical History x 3 Surgical History gallbladder Hospitalization History surgery
--- OUTSIDE RECORDS SUMMARY | 2019-06-07 07:41 | XMS REPORT ---
Author Author PATRICIA JARAMILLO Organization [facility] Address [address] [place] [address] Care Team Providers Care Pipe Line Walker Name Role Phone PATRICIA JARAMILLO Unavailable PROBLEMS Type Condition ICD9-CM Code RJI40-AV Code Onset Dates Condition Status SNOMED Code Problem Tobacco abuse Z72.0 Active 61152250 Problem Essential hypertension I10 Active 50209203 Problem BMI 40.0-44.9, adult Z68.41 Active 509466729 Problem S/P cholecystectomy Z90.49 Active 258045654 Problem Shoulder fracture, right S42.91XA Active 13013943 Problem Other chronic pain G89.29 Active 44706227 Problem Chronic obstructive pulmonary disease, unspecified J44.9 Active 96323450 ALLERGIES No Information ENCOUNTERS Encounter Location Date Diagnosis [facility] [id number] [place] [address] Jun, [facility] [id number] [place] [address] Jun, [facility] [id number] [place] [address] Jun, Pain in thoracic spine M54.6 [facility] [id number] [place] [address] May, Pain in thoracic spine M54.6 [facility] [id number] [place] [address] May, [facility] [id number] [place] [address] Apr, [facility] [id number] [place] [address] Apr, Pain in thoracic spine M54.6 [facility] [id number] [place] [address] Apr, [facility] [id number] [place] [address] Apr, Medicare annual wellness visit, initial Z00.00 ; BMI 40.0-44.9, adult Z68.41 ; Chronic obstructive pulmonary disease, unspecified J44.9 ; Other chronic pain G89.29 and Essential hypertension I10 [facility] [id number] [place] [address] March, Pain in thoracic spine M54.6 [facility] [facility] [id number] [place] [address] Feb, Pain in thoracic spine M54.6 [facility] [facility] [id number] [place] [address] Feb, Pain in thoracic spine M54.6 ; Other chronic pain G89.29 ; Chronic obstructive pulmonary disease, unspecified J44.9 and Periumbilical hernia K42.9 [facility] [id number] [place] [address] Jan, Pain in thoracic spine M54.6 [facility] [facility] [id number] [place] [address] Jan, Chronic obstructive pulmonary disease, unspecified J44.9 ; Encounter for immunization Z23 ; Screening, lipid Z13.220 ; Renal insufficiency N28.9 ; Pain in thoracic spine M54.6 and Other chronic pain G89.29 [facility] [id number] [place] [address] Sep, Irritation of right eye H57.8 [facility] [id number] [place] [address] May, Chronic obstructive pulmonary disease, unspecified COPD type J44.9 [facility] [id number] [place] [address] March, [facility] [id number] [place] [address] Oct, Medicare annual wellness visit, subsequent Z00.00 ; Encounter for immunization Z23 and S/P cholecystectomy Z90.49 [facility] [id number] [place] [address] Oct, [place] [address] [address] Sep, [facility] [address] [address] Aug, Wheezing R06.2 and Community acquired pneumonia J18.9 [place] [address] [address] March, Shoulder fracture, right, with routine healing, subsequent encounter S42.91XD [place] [address] [address] Feb, Shoulder fracture, right S42.91XA [place] [address] [address] Feb, Shoulder pain M25.519 [facility] [id number] [place] [address] Feb, [facility] [id number] [place] [address] Feb, Right shoulder pain M25.511 [place] [id number] [place] [address] Feb, [place] [address] [address] 15 Jan, 2016 Renal insufficiency N28.9 [place] [address] [address] Dec, [place] [address] [address] Dec, Bronchitis J40 [facility] [id number] [place] [address] Dec, [facility] [address] [address] Dec, [facility] [id number] [place] [address] Nov, [facility] [address] [address] Oct, Renal insufficiency N28.9 [facility] [address] [address] Oct, Screening, lipid Z13.220 [place] [address] [address] 10 Oct, 2015 Chronic obstructive pulmonary disease, unspecified COPD type J44.9 ; Gastroesophageal reflux disease, esophagitis presence not specified K21.9 ; Dysthymia F34.1 and Screening, lipid Z13.220 [facility] [id number] [place] [address] Jun, [facility] [address] [address] Jun, Sleep apnea 780.57 and COPD (chronic obstructive pulmonary disease) 496 [facility] [address] [address] Apr, COPD (chronic obstructive pulmonary disease) 496 [facility] [id number] [place] [address] Feb, [facility] [address] [address] Feb, [facility] [id number] [place] [address] Nov, [facility] [address] [address] Nov, [facility] [place] [facility] [address] [id number] [place] [address] Nov, [facility] [place] [facility] [address] [id number] [place] [address] Nov, [facility] [place] [facility] [address] [id number] [place] [address] Oct, [facility] [place] [facility] [address] [id number] [place] [address] Oct, [facility] [place] [facility] [address] [id number] [place] [address] Oct, [facility] [place] [facility] [address] [id number] [place] [address] Oct, [facility] [place] [facility] [address] [id number] [place] [address] Oct, [facility] [place] [facility] [address] [id number] [place] [address] Oct, [facility] [place] [facility] [address] [id number] [place] [address] Oct, [facility] [place] [facility] [address] [id number] [place] [address] Oct, [facility] [place] [facility] [address] [id number] [place] [address] March, [facility] [place] [facility] [address] [id number] [place] [address] March, [facility] [place] [facility] [address] [id number] [place] [address] March, [facility] [place] [facility] [address] [id number] [place] [address] March, [facility] [place] [facility] [address] [id number] [place] [address] Feb, [facility] [place] [facility] [address] [id number] [place] [address] 30 Feb, 2014 [facility] [address] [id number] [place] [address] Feb, [facility] [place] [facility] [address] [id number] [place] [address] 29 Feb, 2014 [facility] [address] [id number] [place] [address] Feb, [facility] [place] [facility] [address] [id number] [place] [address] Feb, [facility] [place] [facility] [address] [id number] [place] [address] Jan, [facility] [place] [facility] [address] [id number] [place] [address] Jan, [facility] [place] [facility] [address] [id number] [place] [address] Nov, [facility] [address] [id number] [place] [address] Nov, [facility] [place] [facility] [address] [id number] [place] [address] Nov, [facility] [address] [id number] [place] [address] Aug, [facility] [place] [facility] [address] [id number] [place] [address] Aug, [facility] [place] [facility] [address] [id number] [place] [address] Aug, [facility] [place] [facility] [address] [id number] [place] [address] Jun, [facility] [place] [facility] [address] [id number] [place] [address] Jun, [facility] [place] [facility] [address] [id number] [place] [address] Apr, [facility] [address] [id number] [place] [address] Apr, [facility] [place] [facility] [address] [id number] [place] [address] March, [facility] [address] [id number] [place] [address] Feb, [facility] [place] [facility] [address] [id number] [place] [address] Feb, [facility] [address] [id number] [place] [address] Jan, [facility] [place] [facility] [address] [id number] [place] [address] Dec, [facility] [place] [facility] [address] [id number] [place] [address] Dec, [facility] [place] [facility] [address] [id number] [place] [address] Dec, [facility] [address] [id number] [place] [address] Nov, [facility] [address] [id number] [place] [address] Nov, [facility] [place] [facility] [address] [id number] [place] [address] Nov, [facility] [place] [facility] [address] [id number] [place] [address] Oct, [facility] [place] [facility] [address] [id number] [place] [address] Oct, [facility] [place] [facility] [address] [id number] [place] [address] Sep, [facility] [place] [facility] [address] [id number] [place] [address] Sep, [facility] [place] [facility] [address] [id number] [place] [address] Aug, [facility] [place] [facility] [address] [id number] [place] [address] Jul, [facility] [place] [facility] [address] [id number] [place] [address] May, [facility] [place] [facility] [address] [id number] [place] [address] May, [facility] [place] [facility] [address] [id number] [place] [address] March, [facility] [place] [facility] [address] [id number] [place] [address] Nov, [facility] [place] [facility] [address] [id number] [place] [address] Oct, [facility] [place] [facility] [address] [id number] [place] [address] Sep, [facility] [place] [facility] [address] [id number] [place] [address] Sep, [facility] [place] [facility] [address] [id number] [place] [address] Sep, [facility] [place] [facility] [address] [id number] [place] [address] Aug, [facility] [place] [facility] [address] [id number] [place] [address] Aug, [facility] [place] [facility] [address] [id number] [place] [address] Oct, [facility] [place] [facility] [address] [id number] [place] [address] Oct, [facility] [place] [facility] [address] [id number] [place] [address] Oct, [facility] [place] [facility] [address] [id number] [place] [address] Aug, [facility] [id number] [address] Aug, [facility] [id number] [address] Aug, [facility] [address] [place] [address] Oct, [facility] [address] [place] [address] Sep, [facility] [address] [address] Sep, [facility] [id number] [address] Jul, IMMUNIZATIONS No Known Immunizations SOCIAL HISTORY Never Assessed REASON FOR VISIT Controlled Med Refill 05/09/18 PLAN OF CARE VITAL SIGNS MEDICATIONS Medication [...]
--- OUTSIDE RECORDS SUMMARY | 2019-06-07 07:41 | XMS REPORT ---
Author Author PATRICIA JARAMILLO Organization [facility] Address [address] [place] [address] Care Team Providers Care Piecer Name Role Phone PATRICIA JARAMILLO Unavailable PROBLEMS Type Condition ICD9-CM Code YUX05-SL Code Onset Dates Condition Status SNOMED Code Problem Tobacco abuse Z72.0 Active 08025730 Problem Essential hypertension I10 Active 17647327 Problem BMI 40.0-44.9, adult Z68.41 Active 958345892 Problem S/P cholecystectomy Z90.49 Active 513188017 Problem Shoulder fracture, right S42.91XA Active 05199077 Problem Other chronic pain G89.29 Active 57393816 Problem Chronic obstructive pulmonary disease, unspecified J44.9 Active 42985616 ALLERGIES No Information ENCOUNTERS Encounter Location Date Diagnosis [facility] [id number] [place] [address] Jun, [facility] [id number] [place] [address] Jun, [facility] [id number] [place] [address] Jun, Pain in thoracic spine M54.6 [facility] [id number] [place] [address] May, Pain in thoracic spine M54.6 [facility] [id number] [place] [address] May, [facility] [id number] [place] [address] Apr, [facility] [id number] [place] [address] Apr, Pain in thoracic spine M54.6 [facility] [id number] [place] [address] Apr, [facility] [id number] [place] [address] Apr, Medicare annual wellness visit, initial Z00.00 ; BMI 40.0-44.9, adult Z68.41 ; Chronic obstructive pulmonary disease, unspecified J44.9 ; Other chronic pain G89.29 and Essential hypertension I10 [facility] [id number] [place] [address] March, Pain in thoracic spine M54.6 [facility] [id number] [place] [address] Feb, Pain in thoracic spine M54.6 [facility] [id number] [place] [address] Feb, Pain in thoracic spine M54.6 ; Other chronic pain G89.29 ; Chronic obstructive pulmonary disease, unspecified J44.9 and Periumbilical hernia K42.9 [facility] [id number] [place] [address] Jan, Pain in thoracic spine M54.6 [facility] [id number] [place] [address] Jan, Chronic obstructive pulmonary disease, unspecified J44.9 ; Encounter for immunization Z23 ; Screening, lipid Z13.220 ; Renal insufficiency N28.9 ; Pain in thoracic spine M54.6 and Other chronic pain G89.29 [facility] [id number] [place] [address] Sep, Irritation of right eye H57.8 [facility] [id number] [place] [address] May, Chronic obstructive pulmonary disease, unspecified COPD type J44.9 [facility] [id number] [place] [address] March, [facility] [id number] [place] [address] Oct, Medicare annual wellness visit, subsequent Z00.00 ; Encounter for immunization Z23 and S/P cholecystectomy Z90.49 [place] [id number] [place] [address] Oct, [place] [address] [address] Sep, [facility] [address] [address] Aug, Wheezing R06.2 and Community acquired pneumonia J18.9 [place] [address] [address] March, Shoulder fracture, right, with routine healing, subsequent encounter S42.91XD [place] [address] [address] Feb, Shoulder fracture, right S42.91XA [place] [address] [address] Feb, Shoulder pain M25.519 [facility] [id number] [place] [address] Feb, [facility] [id number] [place] [address] Feb, Right shoulder pain M25.511 [place] [id number] [place] [address] Feb, [place] [address] [address] 15 Jan, 2016 Renal insufficiency N28.9 [place] [address] [address] Dec, [place] [address] [address] Dec, Bronchitis J40 [facility] [id number] [place] [address] Dec, [facility] [address] [address] Dec, [facility] [id number] [place] [address] Nov, [facility] [address] [address] Oct, Renal insufficiency N28.9 [facility] [address] [address] Oct, Screening, lipid Z13.220 [place] [address] [address] 10 Oct, 2015 Chronic obstructive pulmonary disease, unspecified COPD type J44.9 ; Gastroesophageal reflux disease, esophagitis presence not specified K21.9 ; Dysthymia F34.1 and Screening, lipid Z13.220 [facility] [id number] [place] [address] Jun, [facility] [address] [address] Jun, Sleep apnea 780.57 and COPD (chronic obstructive pulmonary disease) 496 [facility] [address] [address] Apr, COPD (chronic obstructive pulmonary disease) 496 [facility] [id number] [place] [address] Feb, [facility] [address] [address] Feb, [facility] [id number] [place] [address] Nov, [facility] [address] [address] Nov, [facility] [place] [facility] [address] [id number] [place] [address] Nov, [facility] [place] [facility] [address] [id number] [place] [address] Nov, [facility] [place] [facility] [address] [id number] [place] [address] Oct, [facility] [place] [facility] [address] [id number] [place] [address] Oct, [facility] [place] [facility] [address] [id number] [place] [address] Oct, [facility] [place] [facility] [address] [id number] [place] [address] Oct, [facility] [place] [facility] [address] [id number] [place] [address] Oct, [facility] [place] [facility] [address] [id number] [place] [address] Oct, [facility] [place] [facility] [address] [id number] [place] [address] Oct, [facility] [place] [facility] [address] [id number] [place] [address] Oct, [facility] [place] [facility] [address] [id number] [place] [address] March, [facility] [place] [facility] [address] [id number] [place] [address] March, [facility] [place] [facility] [address] [id number] [place] [address] March, [facility] [place] [facility] [address] [id number] [place] [address] March, [facility] [place] [facility] [address] [id number] [place] [address] Feb, [facility] [place] [facility] [address] [id number] [place] [address] 30 Feb, 2014 [facility] [address] [id number] [place] [address] Feb, [facility] [place] [facility] [address] [id number] [place] [address] 29 Feb, 2014 [facility] [address] [id number] [place] [address] Feb, [facility] [place] [facility] [address] [id number] [place] [address] Feb, [facility] [place] [facility] [address] [id number] [place] [address] Jan, [facility] [place] [facility] [address] [id number] [place] [address] Jan, [facility] [place] [facility] [address] [id number] [place] [address] Nov, [facility] [address] [id number] [place] [address] Nov, [facility] [place] [facility] [address] [id number] [place] [address] Nov, [facility] [address] [id number] [place] [address] Aug, [facility] [place] [facility] [address] [id number] [place] [address] Aug, [facility] [place] [facility] [address] [id number] [place] [address] Aug, [facility] [place] [facility] [address] [id number] [place] [address] Jun, [facility] [place] [facility] [address] [id number] [place] [address] Jun, [facility] [place] [facility] [address] [id number] [place] [address] Apr, [facility] [address] [id number] [place] [address] Apr, [facility] [place] [facility] [address] [id number] [place] [address] March, [facility] [address] [id number] [place] [address] Feb, [facility] [place] [facility] [address] [id number] [place] [address] Feb, [facility] [address] [id number] [place] [address] Jan, [facility] [place] [facility] [address] [id number] [place] [address] Dec, [facility] [place] [facility] [address] [id number] [place] [address] Dec, [facility] [place] [facility] [address] [id number] [place] [address] Dec, [facility] [address] [id number] [place] [address] Nov, [facility] [address] [id number] [place] [address] Nov, [facility] [place] [facility] [address] [id number] [place] [address] Nov, [facility] [place] [facility] [address] [id number] [place] [address] Oct, [facility] [place] [facility] [address] [id number] [place] [address] Oct, [facility] [place] [facility] [address] [id number] [place] [address] Sep, [facility] [place] [facility] [address] [id number] [place] [address] Sep, [facility] [place] [facility] [address] [id number] [place] [address] Aug, [facility] [place] [facility] [address] [id number] [place] [address] Jul, [facility] [place] [facility] [address] [id number] [place] [address] May, [facility] [place] [facility] [address] [id number] [place] [address] May, [facility] [place] [facility] [address] [id number] [place] [address] March, [facility] [place] [facility] [address] [id number] [place] [address] Nov, [facility] [place] [facility] [address] [id number] [place] [address] Oct, [facility] [place] [facility] [address] [id number] [place] [address] Sep, [facility] [place] [facility] [address] [id number] [place] [address] Sep, [facility] [place] [facility] [address] [id number] [place] [address] Sep, [facility] [place] [facility] [address] [id number] [place] [address] Aug, [facility] [place] [facility] [address] [id number] [place] [address] Aug, [facility] [place] [facility] [address] [id number] [place] [address] Oct, [facility] [place] [facility] [address] [id number] [place] [address] Oct, [facility] [place] [facility] [address] [id number] [place] [address] Oct, [facility] [place] [facility] [address] [id number] [place] [address] Aug, [facility] [address] [facility] [id number] [address] Aug, [facility] [address] [id number] [address] Aug, [facility] [address] [facility] [id number], [place] [address] Oct, [facility] [address] [id number] [address] Sep, [facility] [address] [facility] [id number], [place] [address] Sep, [facility] [address] [facility] [id number], [place] [address] Jul, IMMUNIZATIONS No Known Immunizations SOCIAL HISTORY Never Assessed REASON FOR VISIT Enrolled in [facility] PLAN OF CARE VITAL SIGNS MEDICATIONS Medication [...] route 4 times per day Feb, Active Wellbutrin XL 150 MG Orally Once a day 1 tablet in the morning 24h 90 days Active Lisinopril 5 MG TAKE 1 TABLET BY MOUTH EVERY DAY 90 Active Atrovent 0.02 % 2.5 mL by Inhalation route 4 times per day PRN Feb, Active Omeprazole 20 MG TAKE 1 CAPSULE BY MOUTH EVERY DAY 90 Active Calcium + D3 600-200 MG-UNIT Orally Once a day (may take up to BID) 1 tablet with a meal Active RESULTS No Results PROCEDURES No Known procedures INSTRUCTIONS MEDICATIONS ADMINISTERED No Known Medications MEDICAL (GENERAL) HISTORY Type Description Date Medical History sleep apnea Medical History emphysema Medical History heartburn Medical History broken back in two place Medical History broken right shoulder Surgical History x 3 Surgical History gallbladder Hospitalization History surgery
--- OUTSIDE RECORDS SUMMARY | 2019-06-07 07:41 | XMS REPORT ---
Author Author PATRICIA JARAMILLO Organization [facility] [place] Address [address] [place] [address] Care Team Providers Care Ob Tech Name Role Phone PATRICIA JARAMILLO Unavailable PROBLEMS Type Condition ICD9-CM Code ZWN15-FF Code Onset Dates Condition Status SNOMED Code Problem Tobacco abuse Z72.0 Active 70218795 Problem Essential hypertension I10 Active 36740701 Problem BMI 40.0-44.9, adult Z68.41 Active 679112968 Problem S/P cholecystectomy Z90.49 Active 165194527 Problem Shoulder fracture, right S42.91XA Active 77809110 Problem Other chronic pain G89.29 Active 06407124 Problem Chronic obstructive pulmonary disease, unspecified J44.9 Active 30847570 ALLERGIES No Information ENCOUNTERS Encounter Location Date Diagnosis [facility] [place] [id number] [place] [phone] Jun, [facility] [place] [id number] [place] [id number] Jun, [facility] [place] [id number] [place] [address] Jun, Pain in thoracic spine M54.6 [facility] [place] [id number] [place] [address] May, Pain in thoracic spine M54.6 [facility] [place] [id number] [place] [address] May, [facility] [place] [id number] [place] [address] Apr, [facility] [place] [id number] [place] [address] Apr, Pain in thoracic spine M54.6 [facility] [place] [id number] [place] [address] Apr, [facility] [place] [id number] [place] [address] Apr, Medicare annual wellness visit, initial Z00.00 ; BMI 40.0-44.9, adult Z68.41 ; Chronic obstructive pulmonary disease, unspecified J44.9 ; Other chronic pain G89.29 and Essential hypertension I10 [id number] [place] [address] March, Pain in thoracic spine M54.6 [place] [id number] [place] [address] Feb, Pain in thoracic spine M54.6 [place] [id number] [place] [address] Feb, Pain in thoracic spine M54.6 ; Other chronic pain G89.29 ; Chronic obstructive pulmonary disease, unspecified J44.9 and Periumbilical hernia K42.9 [place] [id number] [place] [address] Jan, Pain in thoracic spine M54.6 [place] [id number] [place] [address] Jan, Chronic obstructive pulmonary disease, unspecified J44.9 ; Encounter for immunization Z23 ; Screening, lipid Z13.220 ; Renal insufficiency N28.9 ; Pain in thoracic spine M54.6 and Other chronic pain G89.29 [facility] [id number] [place] [address] Sep, Irritation of right eye H57.8 [facility] [place] [id number] [place] [address] May, Chronic obstructive pulmonary disease, unspecified COPD type J44.9 [facility] [place] [id number] [place] [address] March, [facility] [place] [id number] [place] [address] Oct, Medicare annual wellness visit, subsequent Z00.00 ; Encounter for immunization Z23 and S/P cholecystectomy Z90.49 [place] [id number] [place] [phone] Oct, [place] [address] Sep, [facility] [address] [address] Aug, Wheezing R06.2 and Community acquired pneumonia J18.9 [address] [place] [address] [address] March, Shoulder fracture, right, with routine healing, subsequent encounter S42.91XD [address] [address] Feb, Shoulder fracture, right S42.91XA [place] [address] [address] Feb, Shoulder pain M25.519 [facility] [id number] [place] [address] Feb, [facility] [id number] [place] [address] Feb, Right shoulder pain M25.511 [place] [id number] [place] [address] Feb, [place] [address] [address] 15 Jan, 2016 Renal insufficiency N28.9 [place] [address] [address] Dec, [place] [address] [address] Dec, Bronchitis J40 [facility] [place] [id number] [place] [address] Dec, [facility] [place] [address] [address] Dec, [facility] [place] [id number] [place] [address] Nov, [facility] [place] [address] [address] Oct, Renal insufficiency N28.9 [facility] [place] [address] [address] Oct, Screening, lipid Z13.220 [place] [address] [address] 10 Oct, 2015 Chronic obstructive pulmonary disease, unspecified COPD type J44.9 ; Gastroesophageal reflux disease, esophagitis presence not specified K21.9 ; Dysthymia F34.1 and Screening, lipid Z13.220 [facility] [place] [id number] [place] [address] Jun, [facility] [place] [address] [address] Jun, Sleep apnea 780.57 and COPD (chronic obstructive pulmonary disease) 496 [facility] [place] [address] [address] Apr, COPD (chronic obstructive pulmonary disease) 496 [facility] [place] [id number] [place] [address] Feb, [facility] [place] [address] [address] Feb, [facility] [place] [id number] [place] [address] Nov, [facility] [place] [address] [address] Nov, [facility] [place] [facility] [address] [id number] [place] [address] Nov, [facility] [place] [facility] [address] [id number] [place] [address] Nov, [facility] [place] [facility] [address] [id number] [place] [address] Oct, [facility] [place] [facility] [address] [id number] [place] [address] Oct, [facility] [place] [facility] [address] [id number] [place] [address] Oct, [facility] [place] [facility] [address] [id number] [place] [address] Oct, [facility] [place] [facility] [address] [id number] [place] [address] Oct, [facility] [place] [facility] [address] [id number] [place] [address] Oct, [facility] [place] [facility] [address] [id number] [place] [address] Oct, [facility] [place] [facility] [address] [id number] [place] [address] Oct, [facility] [place] [facility] [address] [id number] [place] [address] March, [facility] [place] [facility] [address] [id number] [place] [address] March, [facility] [place] [facility] [address] [id number] [place] [address] March, [facility] [place] [facility] [address] [id number] [place] [address] March, [facility] [place] [facility] [address] [id number] [place] [address] Feb, [facility] [place] [facility] [address] [id number] [place] [address] 30 Feb, 2014 [facility] [address] [id number] [place] [address] Feb, [facility] [place] [facility] [address] [id number] [place] [address] 29 Feb, 2014 [facility] [address] [id number] [place] [address] Feb, [facility] [place] [facility] [address] [id number] [place] [address] Feb, [facility] [place] [facility] [address] [id number] [place] [address] Jan, [facility] [place] [facility] [address] [id number] [place] [address] Jan, [facility] [place] [facility] [address] [id number] [place] [address] Nov, [facility] [address] [id number] [place] [address] Nov, [facility] [place] [facility] [address] [id number] [place] [address] Nov, [facility] [address] [id number] [place] [address] Aug, [facility] [place] [facility] [address] [id number] [place] [address] Aug, [facility] [place] [facility] [address] [id number] [place] [address] Aug, [facility] [place] [facility] [address] [id number] [place] [address] Jun, [facility] [place] [facility] [address] [id number] [place] [address] Jun, [facility] [place] [facility] [address] [id number] [place] [address] Apr, [facility] [address] [id number] [place] [address] Apr, [facility] [place] [facility] [address] [id number] [place] [address] March, [facility] [address] [id number] [place] [address] Feb, [facility] [place] [facility] [address] [id number] [place] [address] Feb, [facility] [address] [id number] [place] [address] Jan, [facility] [place] [facility] [address] [id number] [place] [address] Dec, [facility] [place] [facility] [address] [id number] [place] [address] Dec, [facility] [place] [facility] [address] [id number] [place] [address] Dec, [facility] [address] [id number] [place] [address] Nov, [facility] [address] [id number] [place] [address] Nov, [facility] [place] [facility] [address] [id number] [place] [address] Nov, [facility] [place] [facility] [address] [id number] [place] [address] Oct, [facility] [place] [facility] [address] [id number] [place] [address] Oct, [facility] [place] [facility] [address] [id number] [place] [address] Sep, [facility] [place] [facility] [address] [id number] [place] [address] Sep, [facility] [place] [facility] [address] [id number] [place] [address] Aug, [facility] [place] [facility] [address] [id number] [place] [address] Jul, [facility] [place] [facility] [address] [id number] [place] [address] May, [facility] [place] [facility] [address] [id number] [place] [address] May, [facility] [place] [facility] [address] [id number] [place] [address] March, [facility] [place] [facility] [address] [id number] [place] [address] Nov, [facility] [place] [facility] [address] [id number] [place] [address] Oct, [facility] [place] [facility] [address] [id number] [place] [address] Sep, [facility] [place] [facility] [address] [id number] [place] [address] Sep, [facility] [place] [facility] [address] [id number] [place] [address] Sep, [facility] [place] [facility] [address] [id number] [place] [address] Aug, [facility] [place] [facility] [address] [id number] [place] [address] Aug, [facility] [place] [facility] [address] [id number] [place] [address] Oct, [facility] [place] [facility] [address] [id number] [place] [address] Oct, [facility] [place] [facility] [address] [id number] [place] [address] Oct, [facility] [place] [facility] [address] [id number] [place] [address] Aug, [facility] [place] [id number] [address] Aug, [facility] [place] [id number] [address] Aug, [facility] [place] [id number] [place] [address] Oct, [facility] [place] [id number] [place] [address] Sep, [facility] [place] [id number] [place] [address] Sep, [facility] [place] [id number] [address] Jul, IMMUNIZATIONS No Known Immunizations SOCIAL HISTORY Never Assessed REASON FOR VISIT CCM note/Rx renewal request PLAN OF CARE VITAL SIGNS MEDICATIONS Medication Instructions Dosage Frequency Start Date End Date Duration Status Ventolin HFA 108 (90 Base) MCG/ACT Inhalation every 4-6 hours as needed 2 puffs as needed Apr, 30 days Active RESULTS No Results PROCEDURES No Known procedures INSTRUCTIONS MEDICATIONS ADMINISTERED No Known Medications MEDICAL (GENERAL) HISTORY Type Description Date Medical History sleep apnea Medical History emphysema Medical History heartburn Medical History broken back in two place Medical History broken right shoulder Surgical History x 3 Surgical History gallbladder Hospitalization History surgery
--- OUTSIDE RECORDS SUMMARY | 2019-06-07 07:42 | XMS REPORT ---
Author Author PATRICIA JARAMILLO Organization [facility] Address [address] [place] [address] Care Team Providers Care Manager Balance Name Role Phone PATRICIA JARAMILLO Unavailable PROBLEMS Type Condition ICD9-CM Code EBC72-VT Code Onset Dates Condition Status SNOMED Code Problem Tobacco abuse Z72.0 Active 61316418 Problem Essential hypertension I10 Active 51536816 Problem BMI 40.0-44.9, adult Z68.41 Active 670478887 Problem S/P cholecystectomy Z90.49 Active 252704959 Problem Shoulder fracture, right S42.91XA Active 53021559 Problem Other chronic pain G89.29 Active 27157832 Problem Chronic obstructive pulmonary disease, unspecified J44.9 Active 93308249 ALLERGIES No Information ENCOUNTERS Encounter Location Date Diagnosis [place] [id number] [place] [address] Jun, [place] [id number] [place] [address] May, Pain in thoracic spine M54.6 [facility] [id number] [place] [address] May, [facility] [id number] [place] [address] Apr, [facility] [id number] [place] [address] Apr, Pain in thoracic spine M54.6 [facility] [id number] [place] [address] Apr, [facility] [id number] [place] [address] Apr, Medicare annual wellness visit, initial Z00.00 ; BMI 40.0-44.9, adult Z68.41 ; Chronic obstructive pulmonary disease, unspecified J44.9 ; Other chronic pain G89.29 and Essential hypertension I10 [place] [id number] [place] [address] March, Pain in thoracic spine M54.6 [place] [address] [address] Feb, Pain in thoracic spine M54.6 [place] [address] [address] Feb, Pain in thoracic spine M54.6 ; Other chronic pain G89.29 ; Chronic obstructive pulmonary disease, unspecified J44.9 and Periumbilical hernia K42.9 [place] [address] [address] Jan, Pain in thoracic spine M54.6 [place] [address] [address] Jan, Chronic obstructive pulmonary disease, unspecified J44.9 ; Encounter for immunization Z23 ; Screening, lipid Z13.220 ; Renal insufficiency N28.9 ; Pain in thoracic spine M54.6 and Other chronic pain G89.29 [facility] [id number] [place] [address] Sep, Irritation of right eye H57.8 [place] [id number] [place] [address] May, Chronic obstructive pulmonary disease, unspecified COPD type J44.9 [place] [address] [address] March, [place] [id number] [place] [address] Oct, Medicare annual wellness visit, subsequent Z00.00 ; Encounter for immunization Z23 and S/P cholecystectomy Z90.49 [place] [id number] [place] [address] Oct, [facility] [address] [address] Sep, [facility] [address] [address] Aug, Wheezing R06.2 and Community acquired pneumonia J18.9 [facility] [address] [address] March, Shoulder fracture, right, with routine healing, subsequent encounter S42.91XD [place] [address] [address] Feb, Shoulder fracture, right S42.91XA [facility] [address] [address] Feb, Shoulder pain M25.519 [facility] [address] [address] Feb, [facility] [address] [address] Feb, Right shoulder pain M25.511 [facility] [address] [address] Feb, [facility] [address] [address] Jan, Renal insufficiency N28.9 [facility] [address] [address] Dec, [facility] [address] [address] Dec, Bronchitis J40 [facility] [address] [address] Dec, [facility] [address] [address] Dec, [facility] [id number] [place] [address] Nov, [facility] [id number] [place] [address] Oct, Renal insufficiency N28.9 [facility] [id number] [place] [address] Oct, Screening, lipid Z13.220 [facility] [address] [address] 10 Oct, 2015 Chronic obstructive pulmonary disease, unspecified COPD type J44.9 ; Gastroesophageal reflux disease, esophagitis presence not specified K21.9 ; Dysthymia F34.1 and Screening, lipid Z13.220 [facility] [id number] [place] [address] Jun, [facility] [address] [address] Jun, Sleep apnea 780.57 and COPD (chronic obstructive pulmonary disease) [address] [place] [address] [address] Apr, COPD (chronic obstructive pulmonary disease) 496 [facility] [id number] [place] [address] Feb, [facility] [id number] [place] [address] Feb, [facility] [id number] [place] [address] Nov, [facility] [address] [address] Nov, [facility] [id number] [place] [address] Nov, [facility] [id number] [place] [address] Nov, [facility] [place] [facility] [address] [id number] [place] [address] Oct, [facility] [place] [facility] [address] [id number] [place] [address] Oct, [facility] [place] [facility] [address] [id number] [place] [address] Oct, [facility] [place] [facility] [address] [id number] [place] [address] Oct, [facility] [place] [facility] [address] [id number] [place] [address] Oct, [facility] [place] [facility] [address] [id number] [place] [address] Oct, [facility] [place] [facility] [address] [id number] [place] [address] Oct, [facility] [place] [facility] [address] [id number] [place] [address] Oct, [facility] [place] [facility] [address] [id number] [place] [address] March, [facility] [place] [facility] [address] [id number] [place] [address] March, [facility] [place] [facility] [address] [id number] [place] [address] March, [facility] [place] [facility] [address] [id number] [place] [address] March, [facility] [place] [facility] [address] [id number] [place] [address] Feb, [facility] [place] [facility] [address] [id number] [place] [address] Feb, [facility] [place] [facility] [address] [id number] [place] [address] Feb, [facility] [place] [facility] [address] [id number] [place] [address] 29 Feb, 2014 [facility] [place] [facility] [address] [id number] [place] [address] Feb, [facility] [place] [facility] [address] [id number] [place] [address] Feb, [facility] [place] [facility] [address] [id number] [place] [address] Jan, [facility] [place] [facility] [address] [id number] [place] [address] Jan, [facility] [place] [facility] [address] [id number] [place] [address] Nov, [facility] [place] [facility] [address] [id number] [place] [address] Nov, [facility] [place] [facility] [address] [id number] [place] [address] Nov, [facility] [place] [facility] [address] [id number] [place] [address] Aug, [facility] [place] [facility] [address] [id number] [place] [address] Aug, [facility] [place] [facility] [address] [id number] [place] [address] Aug, [facility] [place] [facility] [address] [id number] [place] [address] Jun, [facility] [place] [facility] [address] [id number] [place] [address] Jun, [facility] [place] [facility] [address] [id number] [place] [address] Apr, [facility] [place] [facility] [address] [id number] [place] [address] Apr, [facility] [place] [facility] [address] [id number] [place] [address] March, [facility] [place] [facility] [address] [id number] [place] [address] Feb, [facility] [address] [id number] [place] [address] Feb, [facility] [place] [facility] [address] [id number] [place] [address] Jan, [facility] [place] [facility] [address] [id number] [place] [address] Dec, [facility] [place] [facility] [address] [id number] [place] [address] Dec, [facility] [place] [facility] [address] [id number] [place] [address] Dec, [facility] [address] [id number] [place] [address] Nov, [facility] [address] [id number] [place] [address] Nov, [facility] [address] [id number] [place] [address] Nov, [facility] [address] [id number] [place] [address] Oct, [facility] [place] [facility] [address] [id number] [place] [address] Oct, [facility] [place] [facility] [address] [id number] [place] [address] Sep, [facility] [place] [facility] [address] [id number] [place] [address] Sep, [facility] [place] [facility] [address] [id number] [place] [address] Aug, [facility] [place] [facility] [address] [id number] [place] [address] Jul, [facility] [place] [facility] [address] [id number] [place] [address] May, [facility] [place] [facility] [address] [id number] [place] [address] May, [facility] [place] [facility] [address] [id number] [place] [address] March, [facility] [place] [facility] [address] [id number] [place] [address] Nov, [facility] [place] [facility] [address] [id number] [place] [address] Oct, [facility] [place] [facility] [address] [id number] [place] [address] Sep, [facility] [place] [facility] [address] [id number] [place] [address] Sep, [facility] [place] [facility] [address] [id number] [place] [address] Sep, [facility] [place] [facility] [address] [id number] [place] [address] Aug, [facility] [place] [facility] [address] [id number] [place] [address] Aug, [facility] [place] [facility] [address] [id number] [place] [address] Oct, [facility] [place] [facility] [address] [id number] [place] [address] 16 Oct, 2010 [facility] [place] [facility] [address] [id number] [place] [address] 16 Oct, 2010 [facility] [place] [facility] [address] [id number] [place] [address] 18 Aug, 2010 [facility] [place] [facility] [address] [id number] [place] [address] 14 Aug, 2010 [facility] [place] [facility] [address] [id number] [place] [address] 14 Aug, 2010 [facility] [place] [facility] [address] [id number] [place] [address] Oct, [facility] [address] [facility] [id number] [address] Sep, [facility] [address] [facility] [id number] [place] [address] Sep, [facility] [address] [facility] [id number] [address] Jul, IMMUNIZATIONS No Known Immunizations SOCIAL HISTORY Never Assessed REASON FOR VISIT Controlled Med Refill 04/11/18 PLAN OF CARE VITAL SIGNS MEDICATIONS Medication [...]
--- OUTSIDE RECORDS SUMMARY | 2019-06-07 07:42 | XMS REPORT ---
Author Author PATRICIA JARAMILLO Organization [facility] Address [address] [place] [address] Care Team Providers Care Ocular Care Technologist Name Role Phone PATRICIA JARAMILLO Unavailable PROBLEMS Type Condition ICD9-CM Code [id number] Code Onset Dates Condition Status SNOMED Code Problem Tobacco abuse Z72.0 Active 07072486 Problem Essential hypertension I10 Active 37627072 Problem BMI 40.0-44.9, adult Z68.41 Active 906989500 Problem S/P cholecystectomy Z90.49 Active 934481729 Problem Shoulder fracture, right S42.91XA Active 82310686 Problem Other chronic pain G89.29 Active 60826014 Problem Chronic obstructive pulmonary disease, unspecified J44.9 Active 77043131 ALLERGIES Substance Reaction Event Type Date Status Penicillin V Potassium hives Drug Allergy Feb, Active Advair Diskus hives Drug Allergy Feb, Active ENCOUNTERS Encounter Location Date Diagnosis [place] [id number] [place] [address] Jun, [facility] [id number] [place] [address] May, Pain in thoracic spine M54.6 [facility] [id number] [place] [address] May, [facility] [id number] [place] [address] Apr, [facility] [id number] [place] [address] Apr, Pain in thoracic spine M54.6 [facility] [id number] [place] [address] Apr, [facility] [id number] [place] [address] Apr, Medicare annual wellness visit, initial Z00.00 ; BMI 40.0-44.9, adult Z68.41 ; Chronic obstructive pulmonary disease, unspecified J44.9 ; Other chronic pain G89.29 and Essential hypertension I10 [place] [id number] [place] [address] March, Pain in thoracic spine M54.6 [place] [id number] [place] [address] Feb, Pain in thoracic spine M54.6 [place] [address] [address] Feb, Pain in thoracic spine M54.6 ; Other chronic pain G89.29 ; Chronic obstructive pulmonary disease, unspecified J44.9 and Periumbilical hernia K42.9 [place] [id number] [place] [address] Jan, Pain in thoracic spine M54.6 [place] [id number] [place] [address] Jan, Chronic obstructive pulmonary disease, unspecified J44.9 ; Encounter for immunization Z23 ; Screening, lipid Z13.220 ; Renal insufficiency N28.9 ; Pain in thoracic spine M54.6 and Other chronic pain G89.29 [facility] [id number] [place] [address] Sep, Irritation of right eye H57.8 [place] [id number] [place] [address] May, Chronic obstructive pulmonary disease, unspecified COPD type J44.9 [facility] [id number] [place] [address] March, [place] [id number] [place] [address] 27 Dec, 2016 Medicare annual wellness visit, subsequent Z00.00 ; Encounter for immunization Z23 and S/P cholecystectomy Z90.49 [place] [address] [address] Oct, [place] [address] [address] Sep, [facility] [address] [address] Aug, Wheezing R06.2 and Community acquired pneumonia J18.9 [place] [address] [address] March, Shoulder fracture, right, with routine healing, subsequent encounter S42.91XD [place] [address] [address] Feb, Shoulder fracture, right S42.91XA [place] [address] [address] Feb, Shoulder pain M25.519 [facility] [address] [address] Feb, [facility] [address] [address] Feb, Right shoulder pain M25.511 [place] [address] [address] Feb, [place] [address] [address] 15 Jan, 2016 Renal insufficiency N28.9 [place] [address] [address] Dec, [place] [address] [address] Dec, Bronchitis J40 [place] [address] [address] Dec, [facility] [address] [address] Dec, [facility] [id number] [place] [address] Nov, [facility] [id number] [place] [address] Oct, Renal insufficiency N28.9 [facility] [id number] [place] [address] Oct, Screening, lipid Z13.220 [place] [id number] [place] [address] 10 Oct, 2015 Chronic obstructive pulmonary disease, unspecified COPD type J44.9 ; Gastroesophageal reflux disease, esophagitis presence not specified K21.9 ; Dysthymia F34.1 and Screening, lipid Z13.220 [place] [id number] [place] [address] Jun, [facility] [id number] [place] [address] Jun, Sleep apnea 780.57 and COPD (chronic obstructive pulmonary disease) [address] [place] [id number] [place] [address] Apr, COPD (chronic obstructive pulmonary disease) [address] [place] [id number] [place] [address] Feb, [facility] [id number] [place] [address] Feb, [facility] [id number] [place] [address] Nov, [facility] [id number] [place] [address] Nov, [facility] [id number] [place] [address] Nov, [facility] [address] [id number] [place] [address] 15 Nov, 2014 [facility] [place] [facility] [address] [id number] [place] [address] Oct, [facility] [place] [facility] [address] [id number] [place] [address] Oct, [facility] [place] [facility] [address] [id number] [place] [address] Oct, [facility] [place] [facility] [address] [id number] [place] [address] Oct, [facility] [place] [facility] [address] [id number] [place] [address] Oct, [facility] [place] [facility] [address] [id number] [place] [address] Oct, [facility] [place] [facility] [address] [id number] [place] [address] Oct, [facility] [place] [facility] [address] [id number] [place] [address] Oct, [facility] [place] [facility] [address] [id number] [place] [address] March, [facility] [place] [facility] [address] [id number] [place] [address] March, [facility] [place] [facility] [address] [id number] [place] [address] March, [facility] [place] [facility] [address] [id number] [place] [address] March, [facility] [place] [facility] [address] [id number] [place] [address] Feb, [facility] [place] [facility] [address] [id number] [place] [address] Feb, [facility] [place] [facility] [address] [id number] [place] [address] Feb, [facility] [place] [facility] [address] [id number] [place] [address] Feb, [facility] [place] [facility] [address] [id number] [place] [address] Feb, [facility] [place] [facility] [address] [id number] [place] [address] Feb, [facility] [place] [facility] [address] [id number] [place] [address] Jan, [facility] [place] [facility] [address] [id number] [place] [address] Jan, [facility] [place] [facility] [address] [id number] [place] [address] Nov, [facility] [place] [facility] [address] [id number] [place] [address] Nov, [facility] [place] [facility] [address] [id number] [place] [address] Nov, [facility] [place] [facility] [address] [id number] [place] [address] Aug, [facility] [place] [facility] [address] [id number] [place] [address] Aug, [facility] [place] [facility] [address] [id number] [place] [address] Aug, [facility] [place] [facility] [address] [id number] [place] [address] Jun, [facility] [place] [facility] [address] [id number] [place] [address] Jun, [facility] [place] [facility] [address] [id number] [place] [address] Apr, [facility] [place] [facility] [address] [id number] [place] [address] Apr, [facility] [place] [facility] [address] [id number] [place] [address] March, [facility] [address] [id number] [place] [address] Feb, [facility] [place] [facility] [address] [id number] [place] [address] Feb, [facility] [address] [id number] [place] [address] Jan, [facility] [place] [facility] [address] [id number] [place] [address] Dec, [facility] [place] [facility] [address] [id number] [place] [address] Dec, [facility] [address] [id number] [place] [address] Dec, [facility] [address] [id number] [place] [address] Nov, [facility] [address] [id number] [place] [address] Nov, [facility] [address] [id number] [place] [address] Nov, [facility] [address] [id number] [place] [address] Oct, [facility] [place] [facility] [address] [id number] [place] [address] Oct, [facility] [place] [facility] [address] [id number] [place] [address] Sep, [facility] [place] [facility] [address] [id number] [place] [address] Sep, [facility] [place] [facility] [address] [id number] [place] [address] Aug, [facility] [place] [facility] [address] [id number] [place] [address] Jul, [facility] [place] [facility] [address] [id number] [place] [address] May, [facility] [place] [facility] [address] [id number] [place] [address] May, [facility] [place] [facility] [address] [id number] [place] [address] March, [facility] [place] [facility] [address] [id number] [place] [address] Nov, [facility] [place] [facility] [address] [id number] [place] [address] Oct, [facility] [place] [facility] [address] [id number] [place] [address] Sep, [facility] [place] [facility] [address] [id number] [place] [address] Sep, [facility] [place] [facility] [address] [id number] [address] Sep, [facility] [place] [facility] [address] [id number] [place] [address] Aug, [facility] [place] [facility] [address] [id number] [place] [address] Aug, [facility] [place] [facility] [address] [id number], [place] [address] Oct, [facility] [place] [facility] [address] [id number], [place] [address] 16 Oct, 2010 [facility] [place] [facility] [address] [id number] [place] [address] 16 Oct, 2010 [facility] [place] [facility] [address] [id number], [place] [address] 18 Aug, 2010 [facility] [place] [facility] [address] [id number] [place] [address] 14 Aug, 2010 [facility] [place] [facility] [address] [facility] [id number] [place] [address] 14 Aug, 2010 [facility] [address] [facility] [id number], [place] [address] Oct, [facility] [address] [facility] [id number], [place] [address] Sep, [facility] [address] [facility] [id number], [place] [address] Sep, [facility] [address] [facility] [id number], [place] [address] Jul, IMMUNIZATIONS No Known Immunizations SOCIAL HISTORY Never Assessed REASON FOR VISIT back pain, possible hernia after gallbladder surgery WB-MA PLAN OF CARE Activity Details Follow Up 3 Months Reason:chronic pain VITAL SIGNS Height 66 in 2018-03-02 Weight 253 lbs 2018-03-02 Temperature 97.7 degrees Fahrenheit 2018-03-02 Heart Rate 82 bpm 2018-03-02 Respiratory Rate 20 2018-03-02 Oximetry on room air:97 % 2018-03-02 BMI 40.83 kg/m2 2018-03-02 Blood pressure systolic 122 mmHg 2018-03-02 Blood pressure diastolic 76 mmHg 2018-03-02 MEDICATIONS Medication Instructions Dosage Frequency Start Date End Date Duration Status Breo Ellipta by inhalation route [address] Benavides Nov, Active Tramadol HCl 50 MG Orally 3 times a day 1 tablet 8h Jan, 28 days Active Wellbutrin XL 150 MG Orally Once a day 1 tablet in the morning 24h 90 days Active Oxygen 3L Active Lisinopril 5 MG TAKE 1 TABLET BY MOUTH EVERY DAY 90 Active Albuterol 0.083% by Inhalation route 4 times per day Feb, Active Atrovent 0.02 % 2.5 mL by Inhalation route 4 times per day PRN Feb, Active Omeprazole 20 MG TAKE 1 CAPSULE BY MOUTH EVERY DAY 90 Active Incruse Ellipta 62.5 MCG/INH Inhalation Once a day 1 puff 24h Active Singulair 10 MG Orally Once a day 1 tablet in the evening 24h Active RESULTS No Results PROCEDURES Procedure Date Ordered Result Body Site [facility] VISIT ESTABLISHED PATIENT March 02, 2018 INSTRUCTIONS MEDICATIONS ADMINISTERED No Known Medications MEDICAL (GENERAL) HISTORY Type Description Date Medical History sleep apnea Medical History emphysema Medical History heartburn Medical History broken back in two place Medical History broken right shoulder Surgical History x 3 Surgical History gallbladder Hospitalization History surgery
--- OUTSIDE RECORDS SUMMARY | 2019-06-07 07:43 | XMS REPORT ---
Author Author PATRICIA JARAMILLO Organization [facility] Address [address] [place] [address] Care Team Providers Care Cotton Factor Name Role Phone PATRICIA JARAMILLO Unavailable PROBLEMS Type Condition ICD9-CM Code KCX57-QU Code Onset Dates Condition Status SNOMED Code Problem Tobacco abuse Z72.0 Active 00087005 Problem Essential hypertension I10 Active 55795196 Problem BMI 40.0-44.9, adult Z68.41 Active 973481954 Problem S/P cholecystectomy Z90.49 Active 107947379 Problem Shoulder fracture, right S42.91XA Active 86018212 Problem Other chronic pain G89.29 Active 35496680 Problem Chronic obstructive pulmonary disease, unspecified J44.9 Active 95358199 ALLERGIES No Information ENCOUNTERS Encounter Location Date Diagnosis [place] [id number] [place] [address] Jun, [place] [id number] [place] [address] May, Pain in thoracic spine M54.6 [facility] [id number] [place] [address] May, [facility] [id number] [place] [address] Apr, [facility] [id number] [place] [address] Apr, Pain in thoracic spine M54.6 [facility] [id number] [place] [address] Apr, [facility] [id number] [place] [address] Apr, Medicare annual wellness visit, initial Z00.00 ; BMI 40.0-44.9, adult Z68.41 ; Chronic obstructive pulmonary disease, unspecified J44.9 ; Other chronic pain G89.29 and Essential hypertension I10 [place] [id number] [place] [address] March, Pain in thoracic spine M54.6 [facility] [place] [address] [address] Feb, Pain in thoracic spine M54.6 [place] [address] [address] Feb, Pain in thoracic spine M54.6 ; Other chronic pain G89.29 ; Chronic obstructive pulmonary disease, unspecified J44.9 and Periumbilical hernia K42.9 [facility] [place] [address] [address] Jan, Pain in thoracic spine M54.6 [facility] [place] [address] [address] Jan, Chronic obstructive pulmonary disease, unspecified J44.9 ; Encounter for immunization Z23 ; Screening, lipid Z13.220 ; Renal insufficiency N28.9 ; Pain in thoracic spine M54.6 and Other chronic pain G89.29 [facility] [id number] [place] [address] Sep, Irritation of right eye H57.8 [facility] [id number] [place] [address] May, Chronic obstructive pulmonary disease, unspecified COPD type J44.9 [facility] [place] [address] [address] March, [facility] [id number] [place] [address] Oct, Medicare annual wellness visit, subsequent Z00.00 ; Encounter for immunization Z23 and S/P cholecystectomy Z90.49 [facility] [place] [id number] [place] [address] Oct, [facility] [address] [address] Sep, [facility] [address] [address] Aug, Wheezing R06.2 and Community acquired pneumonia J18.9 [facility] [address] [address] March, Shoulder fracture, right, with routine healing, subsequent encounter S42.91XD [place] [address] [address] Feb, Shoulder fracture, right S42.91XA [facility] [address] [address] Feb, Shoulder pain M25.519 [facility] [address] [address] Feb, [facility] [address] [address] Feb, Right shoulder pain M25.511 [facility] [address] [address] Feb, [facility] [address] [address] Jan, Renal insufficiency N28.9 [facility] [address] [address] Dec, [facility] [address] [address] Dec, Bronchitis J40 [facility] [address] [address] Dec, [facility] [address] [address] Dec, [facility] [id number] [place] [address] Nov, [facility] [id number] [place] [address] Oct, Renal insufficiency N28.9 [facility] [id number] [place] [address] Oct, Screening, lipid Z13.220 [facility] [address] [address] 10 Oct, 2015 Chronic obstructive pulmonary disease, unspecified COPD type J44.9 ; Gastroesophageal reflux disease, esophagitis presence not specified K21.9 ; Dysthymia F34.1 and Screening, lipid Z13.220 [facility] [id number] [place] [address] Jun, [facility] [address] [address] Jun, Sleep apnea 780.57 and COPD (chronic obstructive pulmonary disease) [address] [place] [address] [address] Apr, COPD (chronic obstructive pulmonary disease) 496 [facility] [id number] [place] [address] Feb, [facility] [id number] [place] [address] Feb, [facility] [id number] [place] [address] Nov, [facility] [address] [address] Nov, [facility] [id number] [place] [address] Nov, [facility] [id number] [place] [address] Nov, [facility] [place] [facility] [address] [id number] [place] [address] Oct, [facility] [place] [facility] [address] [id number] [place] [address] Oct, [facility] [place] [facility] [address] [id number] [place] [address] Oct, [facility] [place] [facility] [address] [id number] [place] [address] Oct, [facility] [place] [facility] [address] [id number] [place] [address] Oct, [facility] [place] [facility] [address] [id number] [place] [address] Oct, [facility] [place] [facility] [address] [id number] [place] [address] Oct, [facility] [place] [facility] [address] [id number] [place] [address] Oct, [facility] [place] [facility] [address] [id number] [place] [address] March, [facility] [place] [facility] [address] [id number] [place] [address] March, [facility] [place] [facility] [address] [id number] [place] [address] March, [facility] [place] [facility] [address] [id number] [place] [address] March, [facility] [place] [facility] [address] [id number] [place] [address] Feb, [facility] [place] [facility] [address] [id number] [place] [address] Feb, [facility] [place] [facility] [address] [id number] [place] [address] Feb, [facility] [place] [facility] [address] [id number] [place] [address] 29 Feb, 2014 [facility] [place] [facility] [address] [id number] [place] [address] Feb, [facility] [place] [facility] [address] [id number] [place] [address] Feb, [facility] [place] [facility] [address] [id number] [place] [address] Jan, [facility] [place] [facility] [address] [id number] [place] [address] Jan, [facility] [place] [facility] [address] [id number] [place] [address] Nov, [facility] [place] [facility] [address] [id number] [place] [address] Nov, [facility] [place] [facility] [address] [id number] [place] [address] Nov, [facility] [place] [facility] [address] [id number] [place] [address] Aug, [facility] [place] [facility] [address] [id number] [place] [address] Aug, [facility] [place] [facility] [address] [id number] [place] [address] Aug, [facility] [place] [facility] [address] [id number] [place] [address] Jun, [facility] [place] [facility] [address] [id number] [place] [address] Jun, [facility] [place] [facility] [address] [id number] [place] [address] Apr, [facility] [place] [facility] [address] [id number] [place] [address] Apr, [facility] [place] [facility] [address] [id number] [place] [address] March, [facility] [place] [facility] [address] [id number] [place] [address] Feb, [facility] [address] [id number] [place] [address] Feb, [facility] [place] [facility] [address] [id number] [place] [address] Jan, [facility] [place] [facility] [address] [id number] [place] [address] Dec, [facility] [place] [facility] [address] [id number] [place] [address] Dec, [facility] [place] [facility] [address] [id number] [place] [address] Dec, [facility] [address] [id number] [place] [address] Nov, [facility] [address] [id number] [place] [address] Nov, [facility] [address] [id number] [place] [address] Nov, [facility] [address] [id number] [place] [address] Oct, [facility] [place] [facility] [address] [id number] [place] [address] Oct, [facility] [place] [facility] [address] [id number] [place] [address] Sep, [facility] [place] [facility] [address] [id number] [place] [address] Sep, [facility] [place] [facility] [address] [id number] [place] [address] Aug, [facility] [place] [facility] [address] [id number] [place] [address] Jul, [facility] [place] [facility] [address] [id number] [place] [address] May, [facility] [place] [facility] [address] [id number] [place] [address] May, [facility] [place] [facility] [address] [id number] [place] [address] March, [facility] [place] [facility] [address] [id number] [place] [address] Nov, [facility] [place] [facility] [address] [id number] [place] [address] Oct, [facility] [place] [facility] [address] [id number] [place] [address] Sep, [facility] [place] [facility] [address] [id number] [place] [address] Sep, [facility] [place] [facility] [address] [id number] [place] [address] Sep, [facility] [place] [facility] [address] [id number] [place] [address] Aug, [facility] [place] [facility] [address] [id number] [place] [address] Aug, [facility] [place] [facility] [address] [id number] [place] [address] Oct, [facility] [place] [facility] [address] [id number] [place] [address] 16 Oct, 2010 [facility] [place] [facility] [address] [id number] [place] [address] 16 Oct, 2010 [facility] [place] [facility] [address] [id number] [place] [address] 18 Aug, 2010 [facility] [place] [facility] [address] [id number] [place] [address] 14 Aug, 2010 [facility] [place] [facility] [address] [id number] [place] [address] 14 Aug, 2010 [facility] [place] [facility] [address] [id number] [place] [address] Oct, [facility] [address] [id number], [place] [address] Sep, [facility] [address] [id number], [place] [address] Sep, [facility] [address] [id number], [place] [address] Jul, IMMUNIZATIONS No Known Immunizations SOCIAL HISTORY Never Assessed REASON FOR VISIT Controlled Med Refill 02/14/18 PLAN OF CARE VITAL SIGNS MEDICATIONS Medication [...]
--- OUTSIDE RECORDS SUMMARY | 2019-06-07 07:43 | XMS REPORT ---
Author Author PATRICIA JARAMILLO Organization [facility] Address [address] [place] [address] Care Team Providers Care Ms Sql Server Developer Name Role Phone PATRICIA JARAMILLO Unavailable PROBLEMS Type Condition ICD9-CM Code PEC61-QM Code Onset Dates Condition Status SNOMED Code Problem Tobacco abuse Z72.0 Active 02985497 Problem Essential hypertension I10 Active 61127916 Problem BMI 40.0-44.9, adult Z68.41 Active 500094346 Problem S/P cholecystectomy Z90.49 Active 989727447 Problem Shoulder fracture, right S42.91XA Active 54918323 Problem Other chronic pain G89.29 Active 29283414 Problem Chronic obstructive pulmonary disease, unspecified J44.9 Active 40368320 ALLERGIES Substance Reaction Event Type Date Status Penicillin V Potassium hives Drug Allergy Jan, Active Advair Diskus hives Drug Allergy Jan, Active ENCOUNTERS Encounter Location Date Diagnosis [place] [id number] [place] [address] May, Pain in thoracic spine M54.6 [place] [address] [place] [id number] [place] [address] May, [facility] [address] [place] [id number] [place] [address] Apr, [facility] [address] [place] [id number] [place] [address] Apr, Pain in thoracic spine M54.6 [place] [address] [place] [id number] [place] [address] Apr, [place] [address] [place] [id number] [place] [address] Apr, Medicare annual wellness visit, initial Z00.00 ; BMI 40.0-44.9, adult Z68.41 ; Chronic obstructive pulmonary disease, unspecified J44.9 ; Other chronic pain G89.29 and Essential hypertension I10 [place] [address] [place] [id number] [place] [address] March, Pain in thoracic spine M54.6 [place] [address] [place] [id number] [place] [address] Feb, Pain in thoracic spine M54.6 [place] [address] [place] [id number] [place] [address] Feb, Pain in thoracic spine M54.6 ; Other chronic pain G89.29 ; Chronic obstructive pulmonary disease, unspecified J44.9 and Periumbilical hernia K42.9 [place] [address] [place] [id number] [place] [address] Jan, Pain in thoracic spine M54.6 [place] [address] [place] [id number] [place] [address] Jan, Encounter for immunization Z23 ; Chronic obstructive pulmonary disease, unspecified J44.9 ; Screening, lipid Z13.220 ; Renal insufficiency N28.9 ; Pain in thoracic spine M54.6 and Other chronic pain G89.29 [facility] [address] [place] [id number] [place] [address] Sep, Irritation of right eye H57.8 [place] [address] [place] [id number] [place] [address] May, Chronic obstructive pulmonary disease, unspecified COPD type J44.9 [place] [address] [place] [id number] [place] [address] March, [place] [address] [place] [id number] [place] [address] Oct, Encounter for immunization Z23 ; Medicare annual wellness visit, subsequent Z00.00 and S/P cholecystectomy Z90.49 [place] [address] [place] [id number] [place] [address] Oct, [facility] [address] [address] Sep, [facility] [address] [address] Aug, Wheezing R06.2 and Community acquired pneumonia J18.9 [facility] [address] [address] March, Shoulder fracture, right, with routine healing, subsequent encounter S42.91XD [place] [address] [address] Feb, Shoulder fracture, right S42.91XA [facility] [address] [address] Feb, Shoulder pain M25.519 [facility] [address] [address] Feb, [facility] [address] [address] Feb, Right shoulder pain M25.511 [facility] [address] [address] Feb, [facility] [address] [address] Jan, Renal insufficiency N28.9 [facility] [address] [place] [id number] [place] [address] Dec, [facility] [address] [address] Dec, Bronchitis J40 [facility] [address] [address] Dec, [facility] [address] [address] Dec, [facility] [address] [place] [id number] [place] [address] Nov, [facility] [address] [place] [id number] [place] [address] Oct, Renal insufficiency N28.9 [facility] [address] [place] [id number] [place] [address] Oct, Screening, lipid Z13.220 [facility] [address] [address] 10 Oct, 2015 Chronic obstructive pulmonary disease, unspecified COPD type J44.9 ; Gastroesophageal reflux disease, esophagitis presence not specified K21.9 ; Dysthymia F34.1 and Screening, lipid Z13.220 [facility] [address] [place] [id number] [place] [address] Jun, [facility] [address] [address] Jun, Sleep apnea 780.57 and COPD (chronic obstructive pulmonary disease) [address] [place] [address] [place] [id number] [place] [address] Apr, COPD (chronic obstructive pulmonary disease) 496 [facility] [address] [place] [id number] [place] [address] Feb, [facility] [address] [place] [id number] [place] [address] Feb, [facility] [address] [place] [id number] [place] [address] Nov, [facility] [address] [place] [id number] [place] [address] Nov, [facility] [address] [place] [id number] [place] [address] Nov, [facility] [address] [place] [id number] [place] [address] Nov, [facility] [address] [id number] [place] [address] Oct, [facility] [place] [facility] [address] [id number] [place] [address] Oct, [facility] [place] [facility] [address] [id number] [place] [address] Oct, [facility] [place] [facility] [address] [id number] [place] [address] Oct, [facility] [place] [facility] [address] [id number] [place] [address] Oct, [facility] [place] [facility] [address] [id number] [place] [address] Oct, [facility] [place] [facility] [address] [id number] [place] [address] Oct, [facility] [place] [facility] [address] [id number] [place] [address] Oct, [facility] [place] [facility] [address] [id number] [place] [address] March, [facility] [place] [facility] [address] [id number] [place] [address] March, [facility] [place] [facility] [address] [id number] [place] [address] March, [facility] [place] [facility] [address] [id number] [place] [address] March, [facility] [place] [facility] [address] [id number] [place] [address] Feb, [facility] [place] [facility] [address] [id number] [place] [address] Feb, [facility] [place] [facility] [address] [id number] [place] [address] Feb, [facility] [place] [facility] [address] [id number] [place] [address] Feb, [facility] [place] [facility] [address] [id number] [place] [address] Feb, [facility] [place] [facility] [address] [id number] [place] [address] Feb, [facility] [place] [facility] [address] [id number] [place] [address] Jan, [facility] [place] [facility] [address] [id number] [place] [address] Jan, [facility] [place] [facility] [address] [id number] [place] [address] Nov, [facility] [place] [facility] [address] [id number] [place] [address] Nov, [facility] [place] [facility] [address] [id number] [place] [address] Nov, [facility] [place] [facility] [address] [id number] [place] [address] Aug, [facility] [place] [facility] [address] [id number] [place] [address] Aug, [facility] [place] [facility] [address] [id number] [place] [address] Aug, [facility] [place] [facility] [address] [id number] [place] [address] Jun, [facility] [place] [facility] [address] [id number] [place] [address] Jun, [facility] [place] [facility] [address] [id number] [place] [address] Apr, [facility] [place] [facility] [address] [id number] [place] [address] Apr, [facility] [place] [facility] [address] [id number] [place] [address] March, [facility] [place] [facility] [address] [id number] [place] [address] Feb, [facility] [address] [id number] [place] [address] Feb, [facility] [place] [facility] [address] [id number] [place] [address] Jan, [facility] [place] [facility] [address] [id number] [place] [address] Dec, [facility] [place] [facility] [address] [id number] [place] [address] Dec, [facility] [place] [facility] [address] [id number] [place] [address] Dec, [facility] [address] [id number] [place] [address] Nov, [facility] [address] [id number] [place] [address] Nov, [facility] [address] [id number] [place] [address] Nov, [facility] [address] [id number] [place] [address] Oct, [facility] [address] [id number] [place] [address] Oct, [facility] [place] [facility] [address] [id number] [place] [address] Sep, [facility] [place] [facility] [address] [id number] [place] [address] Sep, [facility] [place] [facility] [address] [id number] [place] [address] Aug, [facility] [place] [facility] [address] [id number] [place] [address] Jul, [facility] [place] [facility] [address] [id number] [place] [address] May, [facility] [place] [facility] [address] [id number] [place] [address] May, [facility] [place] [facility] [address] [id number] [place] [address] March, [facility] [place] [facility] [address] [id number] [place] [address] Nov, [facility] [place] [facility] [address] [id number] [place] [address] Oct, [facility] [place] [facility] [address] [id number] [place] [address] Sep, [facility] [place] [facility] [address] [id number] [place] [address] Sep, [facility] [place] [facility] [address] [id number] [place] [address] Sep, [facility] [place] [facility] [address] [id number] [place] [address] Aug, [facility] [place] [facility] [address] [id number] [place] [address] Aug, [facility] [place] [facility] [address] [id number] [place] [address] Oct, [facility] [place] [facility] [address] [id number] [address] 16 Oct, 2010 [facility] [place] [facility] [address] [id number] [address] 16 Oct, 2010 [facility] [place] [facility] [address] [id number] [place] [address] 18 Aug, 2010 [facility] [place] [facility] [address] [id number], [place] [address] 14 Aug, 2010 [facility] [place] [facility] [address] [id number] [place] [address] 14 Aug, 2010 [facility] [place] [facility] [address] [facility] [id number] [place] [address] Oct, [facility] [address] [facility] [id number] [address] Sep, [facility] [address] [facility] [id number], [place] [address] Sep, [facility] [address] [facility] [id number], [place] [address] Jul, IMMUNIZATIONS Vaccine Route Administration Date Status PCV 13 IM Intramuscular January 17, 2018 Administered SOCIAL HISTORY Never Assessed REASON FOR VISIT COPD-Boris GALAN PLAN OF CARE Activity Details Follow Up 4 Weeks Reason:back pain VITAL SIGNS Height 66 in 2018-01-17 Weight 243.7 lbs 2018-01-17 Temperature 98.2 degrees Fahrenheit 2018-01-17 Heart Rate 94 bpm 2018-01-17 Respiratory Rate 20 2018-01-17 Oximetry w/ oxygen @ 3L:94 % 2018-01-17 BMI 39.33 kg/m2 2018-01-17 Blood pressure systolic 124 mmHg 2018-01-17 Blood pressure diastolic 76 mmHg 2018-01-17 MEDICATIONS Medication Instructions Dosage Frequency Start Date End Date Duration Status Lisinopril 5 MG TAKE 1 TABLET BY MOUTH EVERY DAY 90 Active Singulair 10 MG Orally Once a day 1 tablet in the evening 24h Active Breo Ellipta by inhalation route [address] Benavides Nov, Active Omeprazole 20 MG TAKE 1 CAPSULE BY MOUTH EVERY DAY 90 Active Oxygen 3L Active Incruse Ellipta 62.5 MCG/INH Inhalation Once a day 1 puff 24h Active Atrovent 0.02 % 2.5 mL by Inhalation route 4 times per day PRN Feb, Active Tramadol HCl 50 mg Orally 3 times a day 1 8h Jan, Feb, 28 days Active Albuterol 0.083% by Inhalation route 4 times per day Feb, Active Wellbutrin XL 150 MG Orally Once a day 1 tablet in the morning 24h 90 days Active RESULTS No Results PROCEDURES Procedure Date Ordered Result Body Site LAB NOT BILLED BY [facility] January 17, 2018 [facility] VISIT ESTABLISHED PATIENT January 17, 2018 PCV 13 January 17, 2018 VENIPUNCT, ROUTINE* January 17, 2018 SINGLE IMMUNIZATION ADMIN January 17, 2018 INSTRUCTIONS MEDICATIONS ADMINISTERED No Known Medications MEDICAL (GENERAL) HISTORY Type Description Date Medical History sleep apnea Medical History emphysema Medical History heartburn Medical History broken back in two place Medical History broken right shoulder Surgical History x 3 Surgical History gallbladder Hospitalization History surgery
--- OUTSIDE RECORDS SUMMARY | 2019-06-07 07:43 | XMS REPORT ---
Author Author PATRICIA JARAMILLO Organization [facility] Address [address] [place] [address] Care Team Providers Care Nib Assembler Name Role Phone PATRICIA JARAMILLO Unavailable PROBLEMS Type Condition ICD9-CM Code JVZ40-TO Code Onset Dates Condition Status SNOMED Code Problem Tobacco abuse Z72.0 Active 83075458 Problem Essential hypertension I10 Active 79891748 Problem BMI 40.0-44.9, adult Z68.41 Active 587626234 Problem S/P cholecystectomy Z90.49 Active 815230749 Problem Shoulder fracture, right S42.91XA Active 29472748 Problem Other chronic pain G89.29 Active 04208184 Problem Chronic obstructive pulmonary disease, unspecified J44.9 Active 63887480 ALLERGIES No Information ENCOUNTERS Encounter Location Date Diagnosis [facility] [id number] [place] [address] Jun, [place] [id number] [place] [address] May, Pain in thoracic spine M54.6 [facility] [id number] [place] [address] May, [facility] [id number] [place] [address] Apr, [facility] [id number] [place] [address] Apr, Pain in thoracic spine M54.6 [facility] [id number] [place] [address] Apr, [facility] [id number] [place] [address] Apr, Medicare annual wellness visit, initial Z00.00 ; BMI 40.0-44.9, adult Z68.41 ; Chronic obstructive pulmonary disease, unspecified J44.9 ; Other chronic pain G89.29 and Essential hypertension I10 [place] [id number] [place] [address] March, Pain in thoracic spine M54.6 [place] [address] [address] Feb, Pain in thoracic spine M54.6 [place] [address] [address] Feb, Pain in thoracic spine M54.6 ; Other chronic pain G89.29 ; Chronic obstructive pulmonary disease, unspecified J44.9 and Periumbilical hernia K42.9 [place] [address] [address] Jan, Pain in thoracic spine M54.6 [place] [address] [address] Jan, Encounter for immunization Z23 ; Chronic obstructive pulmonary disease, unspecified J44.9 ; Screening, lipid Z13.220 ; Renal insufficiency N28.9 ; Pain in thoracic spine M54.6 and Other chronic pain G89.29 [facility] [id number] [place] [address] Sep, Irritation of right eye H57.8 [place] [id number] [place] [address] May, Chronic obstructive pulmonary disease, unspecified COPD type J44.9 [place] [address] [address] March, [place] [id number] [place] [address] Oct, Encounter for immunization Z23 ; Medicare annual wellness visit, subsequent Z00.00 and S/P cholecystectomy Z90.49 [place] [id number] [place] [address] Oct, [facility] [address] [address] Sep, [facility] [address] [address] Aug, Wheezing R06.2 and Community acquired pneumonia J18.9 [facility] [address] [address] March, Shoulder fracture, right, with routine healing, subsequent encounter S42.91XD [place] [address] [address] Feb, Shoulder fracture, right S42.91XA [facility] [address] [address] Feb, Shoulder pain M25.519 [facility] [address] [address] Feb, [facility] [address] [address] Feb, Right shoulder pain M25.511 [facility] [address] [address] Feb, [facility] [address] [address] Jan, Renal insufficiency N28.9 [facility] [address] [address] Dec, [facility] [address] [address] Dec, Bronchitis J40 [facility] [address] [address] Dec, [facility] [address] [address] Dec, [facility] [id number] [place] [address] Nov, [facility] [id number] [place] [address] Oct, Renal insufficiency N28.9 [facility] [id number] [place] [address] Oct, Screening, lipid Z13.220 [facility] [address] [address] 10 Oct, 2015 Chronic obstructive pulmonary disease, unspecified COPD type J44.9 ; Gastroesophageal reflux disease, esophagitis presence not specified K21.9 ; Dysthymia F34.1 and Screening, lipid Z13.220 [facility] [id number] [place] [address] Jun, [facility] [address] [address] Jun, Sleep apnea 780.57 and COPD (chronic obstructive pulmonary disease) [address] [place] [address] [address] Apr, COPD (chronic obstructive pulmonary disease) 496 [facility] [id number] [place] [address] Feb, [facility] [id number] [place] [address] Feb, [facility] [id number] [place] [address] Nov, [facility] [address] [address] Nov, [facility] [id number] [place] [address] Nov, [facility] [id number] [place] [address] Nov, [facility] [place] [facility] [address] [id number] [place] [address] Oct, [facility] [place] [facility] [address] [id number] [place] [address] Oct, [facility] [place] [facility] [address] [id number] [place] [address] Oct, [facility] [place] [facility] [address] [id number] [place] [address] Oct, [facility] [place] [facility] [address] [id number] [place] [address] Oct, [facility] [place] [facility] [address] [id number] [place] [address] Oct, [facility] [place] [facility] [address] [id number] [place] [address] Oct, [facility] [place] [facility] [address] [id number] [place] [address] Oct, [facility] [place] [facility] [address] [id number] [place] [address] March, [facility] [place] [facility] [address] [id number] [place] [address] March, [facility] [place] [facility] [address] [id number] [place] [address] March, [facility] [place] [facility] [address] [id number] [place] [address] March, [facility] [place] [facility] [address] [id number] [place] [address] Feb, [facility] [place] [facility] [address] [id number] [place] [address] Feb, [facility] [place] [facility] [address] [id number] [place] [address] Feb, [facility] [place] [facility] [address] [id number] [place] [address] 29 Feb, 2014 [facility] [place] [facility] [address] [id number] [place] [address] Feb, [facility] [place] [facility] [address] [id number] [place] [address] Feb, [facility] [place] [facility] [address] [id number] [place] [address] Jan, [facility] [place] [facility] [address] [id number] [place] [address] Jan, [facility] [place] [facility] [address] [id number] [place] [address] Nov, [facility] [place] [facility] [address] [id number] [place] [address] Nov, [facility] [place] [facility] [address] [id number] [place] [address] Nov, [facility] [place] [facility] [address] [id number] [place] [address] Aug, [facility] [place] [facility] [address] [id number] [place] [address] Aug, [facility] [place] [facility] [address] [id number] [place] [address] Aug, [facility] [place] [facility] [address] [id number] [place] [address] Jun, [facility] [place] [facility] [address] [id number] [place] [address] Jun, [facility] [place] [facility] [address] [id number] [place] [address] Apr, [facility] [place] [facility] [address] [id number] [place] [address] Apr, [facility] [place] [facility] [address] [id number] [place] [address] March, [facility] [place] [facility] [address] [id number] [place] [address] Feb, [facility] [address] [id number] [place] [address] Feb, [facility] [place] [facility] [address] [id number] [place] [address] Jan, [facility] [place] [facility] [address] [id number] [place] [address] Dec, [facility] [place] [facility] [address] [id number] [place] [address] Dec, [facility] [place] [facility] [address] [id number] [place] [address] Dec, [facility] [address] [id number] [place] [address] Nov, [facility] [address] [id number] [place] [address] Nov, [facility] [address] [id number] [place] [address] Nov, [facility] [address] [id number] [place] [address] Oct, [facility] [place] [facility] [address] [id number] [place] [address] Oct, [facility] [place] [facility] [address] [id number] [place] [address] Sep, [facility] [place] [facility] [address] [id number] [place] [address] Sep, [facility] [place] [facility] [address] [id number] [place] [address] Aug, [facility] [place] [facility] [address] [id number] [place] [address] Jul, [facility] [place] [facility] [address] [id number] [place] [address] May, [facility] [place] [facility] [address] [id number] [place] [address] May, [facility] [place] [facility] [address] [id number] [place] [address] March, [facility] [place] [facility] [address] [id number] [place] [address] Nov, [facility] [place] [facility] [address] [id number] [place] [address] Oct, [facility] [place] [facility] [address] [id number] [place] [address] Sep, [facility] [place] [facility] [address] [id number] [place] [address] Sep, [facility] [place] [facility] [address] [id number] [place] [address] Sep, [facility] [place] [facility] [address] [id number] [place] [address] Aug, [facility] [place] [facility] [address] [id number] [place] [address] Aug, [facility] [place] [facility] [address] [id number] [place] [address] Oct, [facility] [place] [facility] [address] [id number] [place] [address] 16 Oct, 2010 [facility] [place] [facility] [address] [id number] [place] [address] 16 Oct, 2010 [facility] [place] [facility] [address] [id number] [place] [address] 18 Aug, 2010 [facility] [place] [facility] [address] [id number] [place] [address] 14 Aug, 2010 [facility] [place] [facility] [address] [id number] [place] [address] 14 Aug, 2010 [facility] [place] [facility] [address] [id number] [place] [address] Oct, [facility] [address] [facility] [id number] [address] Sep, [facility] [address] [facility] [id number], [place] [address] Sep, [facility] [address] [facility] [id number], [place] [address] Jul, IMMUNIZATIONS No Known Immunizations SOCIAL HISTORY Never Assessed REASON FOR VISIT Controlled Med Refill 03/14/18 PLAN OF CARE VITAL SIGNS MEDICATIONS Medication [...]
--- OUTSIDE RECORDS SUMMARY | 2019-06-07 07:43 | XMS REPORT ---
Author Author MARY ALCANTARA Organization [employer] Address Unknown Phone Unavailable Care Team Providers Care Healthcare Architect Name Role Phone MARY ALCANTARA Unavailable Allergies No Known Allergies Problems Problem Type Condition Code Onset Dates Condition Status Problem COPD (chronic obstructive pulmonary disease) J44.9 Active Problem Tobacco abuse Z72.0 Active Medications No Known Medications Results No Known Results Summary Purpose [employer] Submission
--- OUTSIDE RECORDS SUMMARY | 2019-06-07 07:43 | XMS REPORT ---
Author Author ISAIAS VEGA [facility] Address [address] [place] [address] Care Team Providers Care Director Emergency Name Role Phone ISAIAS VEGA Unavailable PROBLEMS Type Condition ICD9-CM Code FKE15-TP Code Onset Dates Condition Status SNOMED Code Problem Shoulder fracture, right S42.91XA Active 56462534 Problem Tobacco abuse Z72.0 Active 59920475 Problem COPD (chronic obstructive pulmonary disease) J44.9 Active 67019643 ALLERGIES Unknown Allergies SOCIAL HISTORY No smoking Hx information available PLAN OF CARE VITAL SIGNS MEDICATIONS Unknown Medications RESULTS No Results PROCEDURES No Known procedures IMMUNIZATIONS Vaccine Route Administration Date Status FLUARIX QUAD P-FREE 3 AND UP .50 2016 IM Intramuscular Oct 14, 2016 Administered
--- OUTSIDE RECORDS SUMMARY | 2019-06-07 07:43 | XMS REPORT ---
Author Author KRAI URENA Organization [facility] Address [address] [place] [address] Care Team Providers Care Ski Edge Painter Name Role Phone KARI URENA Unavailable PROBLEMS Type Condition ICD9-CM Code WMJ39-ZV Code Onset Dates Condition Status SNOMED Code Problem Chronic obstructive pulmonary disease, unspecified COPD type J44.9 Active 13410663 Problem S/P cholecystectomy Z90.49 Active 785479365 Problem Shoulder fracture, right S42.91XA Active 55115133 Problem Tobacco abuse Z72.0 Active 03546888 ALLERGIES Substance Reaction Event Type Date Status Penicillin V Potassium hives Drug Allergy Aug, Active Advair Diskus hives Drug Allergy Aug, Active SOCIAL HISTORY No smoking Hx information available PLAN OF CARE Activity Details Follow Up prn Reason: VITAL SIGNS Height 66 in 2016-09-11 Temperature 99.9 degrees Fahrenheit 2016-09-11 Heart Rate 108 bpm 2016-09-11 Respiratory Rate 2016-09-11 Oximetry w/ oxygen @ 3L:91 % 2016-09-11 MEDICATIONS Medication Instructions Dosage Frequency Start Date End Date Duration Status Incruse Ellipta 62.5 MCG/INH Inhalation Once a day 1 puff 24h Active Singulair 10 MG Orally Once a day 1 tablet in the evening 24h Active Levaquin 500 MG Orally Once a day 1 tablet 24h Aug, Sep, 7 days Active Wellbutrin SR 150 MG 1 Tablet 24h Oct, Active Oxygen Active PredniSONE 20 MG Orally 2 tablets x 3 days then 1 tablet x 3 days as directed Aug, Sep, 6 days Active Lisinopril 5 MG Orally Once a day Please deliver 1 tablet 90 Active Breo Ellipta by inhalation route [address] Benavides Nov, Active Omeprazole 20 MG TAKE 1 CAPSULE BY MOUTH ONCE DAILY. Active RESULTS Name Result Date Reference Range Xray : Chest (IN HOUSE) 2016-09-11 PROCEDURES Procedure Date Ordered Related Diagnosis Body Site MEASURE BLOOD OXYGEN LEVEL Sep 11, 2016 NEB/MDI RX INITIAL Sep 11, 2016 Office Visit, Est Pt., Level 3 Sep 11, 2016 [facility] VISIT ESTABLISHED PATIENT Sep 11, 2016 SOLUMEDROL (UP TO 125 MG) Sep 11, 2016 CHEST X-RAY Sep 11, 2016 ROCEPHIN 1 GM (IM) Sep 11, 2016 THER/PROPH/DIAG INJ, SC/IM Sep 11, 2016 IMMUNIZATIONS Vaccine Route Administration Date Status ROCEPHIN 1 GM (IM) IM Intramuscular Sep 11, 2016 Administered SOLUMEDROL (UP TO 125 MG) IM Intramuscular Sep 11, 2016 Administered
--- OUTSIDE RECORDS SUMMARY | 2019-06-07 07:44 | XMS REPORT ---
Author Author PATRICIA JARAMILLO Organization [employer] Address Unknown Phone Unavailable Care Team Providers Care Rn Lactation Consultant Name Role Phone PATRICIA JARAMILLO CP Unavailable Allergies No Known Allergies Problems Problem Type Condition Code Onset Dates Condition Status Problem Cough 786.2 Active Problem Other screening mammogram V76.12 Active Problem Personal history of tobacco use, presenting hazards to health V15.82 Active Medications No Known Medications Results No Known Results Summary Purpose [employer] Submission
--- OUTSIDE RECORDS SUMMARY | 2019-06-07 07:44 | XMS REPORT ---
Author Author PATRICIA JARAMILLO Organization [employer] Address Unknown Phone Unavailable Care Team Providers Care Teamcenter Consultant Name Role Phone PATRICIA JARAMILLO CP Unavailable Allergies No Known Allergies Problems Problem Type Condition Code Onset Dates Condition Status Problem Tobacco abuse Z72.0 Active Problem COPD (chronic obstructive pulmonary disease) J44.9 Active Problem Shoulder fracture, right S42.91XA Active Assessment Shoulder fracture, right S42.91XA Active Medications No Known Medications Results No Known Results Summary Purpose [employer] Submission
--- OUTSIDE RECORDS SUMMARY | 2019-06-07 07:44 | XMS REPORT ---
Author Author PATRICIA JARAMILLO Organization [employer] Address Unknown Phone Unavailable Care Team Providers Care Dry Cell Tester Name Role Phone PATRICIA JARAMILLO CP Unavailable Allergies No Known Allergies Problems Problem Type Condition Code Onset Dates Condition Status Problem Cough 786.2 Active Problem Other screening mammogram V76.12 Active Problem Personal history of tobacco use, presenting hazards to health V15.82 Active Assessment Renal insufficiency N28.9 Active Medications Medication Code System Code Instructions Start Date End Date Status Dosage Lisinopril [facility] [address]-48 5 MG Orally Once a day Please deliver Oct 29, 2015 1 tablet Results No Known Results Summary Purpose [employer] Submission
--- OUTSIDE RECORDS SUMMARY | 2019-06-07 07:44 | XMS REPORT ---
Author Author PATRICIA JARAMILLO Organization [employer] Address Unknown Phone Unavailable Care Team Providers Care Tobacco Prevention Health Educator Name Role Phone PATRICIA JARAMILLO Unavailable Allergies No Known Allergies Problems Problem Type Condition Code Onset Dates Condition Status Problem Cough 786.2 Active Problem Other screening mammogram V76.12 Active Problem Personal history of tobacco use, presenting hazards to health V15.82 Active Assessment Screening, lipid Z13.220 Active Medications No Known Medications Procedures Procedure Coding System Code Date VENIPUNCT, ROUTINE* CPT-4 14870 Oct 25, 2015 [facility] Oct 25, 2015 Results Name Result Date Reference Range Unit Abnormality Flag ROUTINE VENIPUNCTURE Summary Purpose [employer] Submission
--- OUTSIDE RECORDS SUMMARY | 2019-06-07 07:44 | XMS REPORT ---
Author Author PATRICIA JARAMILLO [facility] Address [address] [place] [address] Care Team Providers Care Quality Control Representative Name Role Phone PATRICIA JARAMILLO Unavailable PROBLEMS Type Condition ICD9-CM Code [id number] Code Onset Dates Condition Status SNOMED Code Problem Chronic obstructive pulmonary disease, unspecified COPD type J44.9 Active 14406872 Problem S/P cholecystectomy Z90.49 Active 242515523 Problem Shoulder fracture, right S42.91XA Active 49892126 Problem Tobacco abuse Z72.0 Active 13487338 ALLERGIES Substance Reaction Event Type Date Status Penicillin V Potassium hives Drug Allergy Oct, Active Advair Diskus hives Drug Allergy Oct, Active SOCIAL HISTORY No smoking Hx information available PLAN OF CARE Activity Details Follow Up annually for preventive care, sooner for chronic health maintenance Reason: VITAL SIGNS Height 66 in 2016-11-10 Weight 232.3 lbs 2016-11-10 Temperature 98.0 degrees Fahrenheit 2016-11-10 Heart Rate 84 bpm 2016-11-10 Respiratory Rate 24 2016-11-10 BMI 37.49 kg/m2 2016-11-10 Blood pressure systolic 120 mmHg 2016-11-10 Blood pressure diastolic 72 mmHg 2016-11-10 MEDICATIONS Medication Instructions Dosage Frequency Start Date End Date Duration Status Incruse Ellipta 62.5 MCG/INH Inhalation Once a day 1 puff 24h Active Singulair 10 MG Orally Once a day 1 tablet in the evening 24h Active Oxygen Active Lisinopril 5 MG Orally Once a day Please deliver 1 tablet 90 Active Omeprazole 20 MG TAKE 1 CAPSULE BY MOUTH ONCE DAILY. 90 Active Wellbutrin XL 150 MG Orally Once a day 1 tablet in the morning 24h 90 days Active Breo Ellipta by inhalation route [address] Benavides Nov, Active RESULTS No Results PROCEDURES Procedure Date Ordered Related Diagnosis Body Site ANNUAL DEVONTE VST; MARTHA PPS INIT Nov 10, 2016 [facility] VISIT ESTABLISHED PATIENT Nov 10, 2016 IMMUNIZATION ADMIN, EACH ADD (please include units) Nov 10, 2016 SINGLE IMMUNIZATION ADMIN Nov 10, 2016 PPV23 (PNEUMOVAX) Nov 10, 2016 Office Visit, Est Pt., Level 3 Nov 10, 2016 ZOSTER (ZOSTAVAX) Nov 10, 2016 TDAP (BOOSTRIX) Nov 10, 2016 IMMUNIZATIONS Vaccine Route Administration Date Status TDAP (BOOSTRIX) IM Intramuscular Nov 10, 2016 Administered ZOSTER (ZOSTAVAX) SC Subcutaneous Nov 10, 2016 Administered PPV23 (PNEUMOVAX) IM Intramuscular Nov 10, 2016 Administered
--- OUTSIDE RECORDS SUMMARY | 2019-06-07 07:44 | XMS REPORT ---
Author Author PATRICIA JARAMILLO [facility] Address [address] [place] [address] Care Team Providers Care Pipe Layer Helper Name Role Phone PATRICIA JARAMILLO Unavailable PROBLEMS Type Condition ICD9-CM Code [id number] Code Onset Dates Condition Status SNOMED Code Problem Chronic obstructive pulmonary disease, unspecified COPD type J44.9 Active 21624187 Problem S/P cholecystectomy Z90.49 Active 866493183 Problem Shoulder fracture, right S42.91XA Active 26041119 Problem Tobacco abuse Z72.0 Active 60365418 ALLERGIES No Known Allergies SOCIAL HISTORY No smoking Hx information available PLAN OF CARE VITAL SIGNS MEDICATIONS Medication Instructions Dosage Frequency Start Date End Date Duration Status Breo Ellipta by inhalation route [address] Benavides Nov, Active Oxygen Active Omeprazole 20 MG TAKE 1 CAPSULE BY MOUTH ONCE DAILY. 90 Active Wellbutrin XL 150 MG Orally Once a day 1 tablet in the morning 24h 90 days Active Singulair 10 MG Orally Once a day 1 tablet in the evening 24h Active Incruse Ellipta 62.5 MCG/INH Inhalation Once a day 1 puff 24h Active Lisinopril 5 MG Orally Once a day Please deliver 1 tablet 90 Active RESULTS No Results PROCEDURES No Known procedures IMMUNIZATIONS No Known Immunizations
--- OUTSIDE RECORDS SUMMARY | 2019-06-07 07:44 | XMS REPORT ---
Author Author PATRICIA JARAMILLO [facility] eClinicalWorks Address Unknown Phone Unavailable Care Team Providers Care Manufacturing Maintenance Manager Name Role Phone PATRICIA JARAMILLO CP Unavailable Allergies, Adverse Reactions, Alerts Substance Reaction Event Type Penicillin V Potassium hives Drug Allergy Advair Diskus hives Drug Allergy Problems Problem Type Condition Code Onset Dates Condition Status Problem Cough 786.2 Active Problem Other screening mammogram V76.12 Active Problem Personal history of tobacco use, presenting hazards to health V15.82 Active Assessment Dysthymia F34.1 Active Assessment Screening, lipid Z13.220 Active Assessment Chronic obstructive pulmonary disease, unspecified COPD type J44.9 Active Assessment Gastroesophageal reflux disease, esophagitis presence not specified K21.9 Active Medications Medication Code System Code Instructions Start Date End Date Status Dosage Oxygen NDC 0 not defined Wellbutrin SR [facility] [address]-62 150 MG Once a day Oct 16, 2014 1 Tablet Breo Ellipta [facility] [address]-11 Dec 12, 2014 by inhalation route [address] Makayla Castaneda HandiHaler [facility] 58201828091 18 MCG INHALE CONTENTS OF CAPSULE BY MOUTH ONCE DAILY Omeprazole [facility] [address]-03 20 MG TAKE 1 CAPSULE BY MOUTH ONCE DAILY. Procedures Procedure Coding System Code Date Office Visit, Est Pt., Level 3 CPT-4 95471 Oct 24, 2015 [facility] VISIT ESTABLISHED PATIENT CPT-4 G0467 Oct 24, 2015 Vital Signs Date/Time: Oct 24, 2015 Temperature 96.9 F Weight 233 lbs Height 66 in BMI 37.60 Index Blood Pressure Diastolic 80 mmHg Blood Pressure Systolic 114 mmHg Cardiac Monitoring Heart Rate 100 bpm Results No Known Results Summary Purpose eClinicalWorks Submission
--- OUTSIDE RECORDS SUMMARY | 2019-06-07 07:44 | XMS REPORT ---
Author Author PATRIICA JARAMILLO Organization e[employer] Address Unknown Phone Unavailable Care Team Providers Care Claims Adjuster Crop Name Role Phone PATRICIA JARAMILLO CP Unavailable Allergies No Known Allergies Problems Problem Type Condition Code Onset Dates Condition Status Problem COPD (chronic obstructive pulmonary disease) J44.9 Active Assessment Shoulder pain M25.519 Active Problem Tobacco abuse Z72.0 Active Medications No Known Medications Results No Known Results Summary Purpose eClinicalWorks Submission
--- OUTSIDE RECORDS SUMMARY | 2019-06-07 07:44 | XMS REPORT ---
Author Author PATRICIA JARAMILLO [facility] Address [address] [place] [address] Care Team Providers Care Accounts Receivable Analyst Name Role Phone PATRICIA JARAMILLO Unavailable PROBLEMS Type Condition ICD9-CM Code HAD21-SZ Code Onset Dates Condition Status SNOMED Code Problem Chronic obstructive pulmonary disease, unspecified COPD type J44.9 Active 75703667 Problem S/P cholecystectomy Z90.49 Active 542981710 Problem Shoulder fracture, right S42.91XA Active 49234681 Problem Tobacco abuse Z72.0 Active 02820078 ALLERGIES No Information SOCIAL HISTORY Never Assessed PLAN OF CARE VITAL SIGNS MEDICATIONS No Known Medications RESULTS No Results PROCEDURES No Known procedures IMMUNIZATIONS No Known Immunizations MEDICAL (GENERAL) HISTORY Type Description Date Medical History sleep apnea Medical History emphysema Medical History heartburn Medical History broken back in two place Medical History broken right shoulder Surgical History x 3 Surgical History gallbladder Hospitalization History surgery
--- OUTSIDE RECORDS SUMMARY | 2019-06-07 07:46 | XMS REPORT | Continuity of Care Document ---
Author Organization Unknown Address Unknown Allergies Active Description Code Type Severity Reaction Onset Reported/Identified Relationship to Patient Clinical Status Yes Penicillins Drug Allergy 01/21/2009 Yes Penicillins Drug Allergy N/A N/A 01/21/2009 Yes flu vaccine Drug Allergy 08/24/2011 Yes Penicillins [id number] Drug Allergy Unknown N/A 10/20/2016 Yes fluticasone [id number] Drug Allergy Mild HIVES 05/30/2019 Yes Penicillins [id number] Drug Allergy Mild HIVES 05/30/2019 Yes salmeterol [id number] Drug Allergy Mild HIVES 05/30/2019 Medications There is no data. Problems Date Dx Coded Attending Type Code Diagnosis Diagnosed By 05/19/2008 682.9 Cellulitis And Abscess Of Unspecified Sites 05/19/2008 PATRICIA JARAMILLO APRN S 682.9 Cellulitis And Abscess Of Unspecified Sites 05/19/2008 PATRICIA JARAMILLO APRN S 682.9 Cellulitis And Abscess Of Unspecified Sites 05/19/2008 682.9 Cellulitis And Abscess Of Unspecified Sites 05/19/2008 682.9 Cellulitis And Abscess Of Unspecified Sites 05/19/2008 YASMEEN JARAMILLO APRNNDA S 682.9 Cellulitis And Abscess Of Unspecified Sites 05/19/2008 YASMEEN JARAMILLO APRNNDA S 682.9 Cellulitis And Abscess Of Unspecified Sites 05/19/2008 YASMEEN JARAMILLO APRNNDA S 682.9 Cellulitis And Abscess Of Unspecified Sites 05/19/2008 YASMENE JARAMILLO APRNNDA S 682.9 Cellulitis And Abscess Of Unspecified Sites 05/19/2008 YASMEEN JARAMILLO APRNNDA S 682.9 Cellulitis And Abscess Of Unspecified Sites 05/21/2008 496 COPD 05/21/2008 GUS JARAMILLO APRNA S 496 COPD 05/21/2008 CLINT ASSEMBLY MACHINE FEEDER, PATRICIA S 496 COPD 05/21/2008 496 COPD 05/21/2008 496 COPD 05/21/2008 CLINT ASSEMBLY MACHINE FEEDER, PATRICIA S 496 COPD 05/21/2008 CLINT ASSEMBLY MACHINE FEEDER, PATRICIA S 496 COPD 05/21/2008 CLINT ASSEMBLY MACHINE FEEDER, PATRICIA S 496 COPD 05/21/2008 CLINT ASSEMBLY MACHINE FEEDER, PATRICIA S 496 COPD 05/21/2008 CLINT ASSEMBLY MACHINE FEEDER, PATRICIA S 496 COPD 05/23/2008 706.2 Sebaceous Cyst 05/23/2008 CLINT ASSEMBLY MACHINE FEEDER, PATRICIA S 706.2 Sebaceous Cyst 05/23/2008 CLINT ASSEMBLY MACHINE FEEDER, PATRICIA S 706.2 Sebaceous Cyst 05/23/2008 706.2 Sebaceous Cyst 05/23/2008 706.2 Sebaceous Cyst 05/23/2008 CLINT ASSEMBLY MACHINE FEEDER, PATRICIA S 706.2 Sebaceous Cyst 05/23/2008 CLINT ASSEMBLY MACHINE FEEDER, PATRICIA S 706.2 Sebaceous Cyst 05/23/2008 CLINT ASSEMBLY MACHINE FEEDER, PATRICIA S 706.2 Sebaceous Cyst 05/23/2008 CLINT ASSEMBLY MACHINE FEEDER, PATRICIA S 706.2 Sebaceous Cyst 05/23/2008 CLINT ASSEMBLY MACHINE FEEDER, PATRICIA S 706.2 Sebaceous Cyst 05/29/2008 382.9 Unspecified Otitis Media 05/29/2008 CLINT ASSEMBLY MACHINE FEEDER, PATRICIA S 382.9 Unspecified Otitis Media 05/29/2008 CLINT ASSEMBLY MACHINE FEEDER, PATRICIA S 382.9 Unspecified Otitis Media 05/29/2008 382.9 Unspecified Otitis Media 05/29/2008 382.9 Unspecified Otitis Media 05/29/2008 CLINT ASSEMBLY MACHINE FEEDER, PATRICIA S 382.9 Unspecified Otitis Media 05/29/2008 CLINT ASSEMBLY MACHINE FEEDER, PATRICIA S 382.9 Unspecified Otitis Media 05/29/2008 CLINT ASSEMBLY MACHINE FEEDER, PATRICIA S 382.9 Unspecified Otitis Media 05/29/2008 CLINT ASSEMBLY MACHINE FEEDER, PATRICAI S 382.9 Unspecified Otitis Media 05/29/2008 CLINT ASSEMBLY MACHINE FEEDER, PATRICIA S 382.9 Unspecified Otitis Media 07/06/2008 698.9 Pruritus Nos 07/06/2008 CLINT ASSEMBLY MACHINE FEEDER, PATRICIA S 698.9 Pruritus Nos 07/06/2008 CLINT ASSEMBLY MACHINE FEEDER, PATRICIA S 698.9 Pruritus Nos 07/06/2008 698.9 Pruritus Nos 07/06/2008 698.9 Pruritus Nos 07/06/2008 CLINT ASSEMBLY MACHINE FEEDER, PATRICIA S 698.9 Pruritus Nos 07/06/2008 CLINT ASSEMBLY MACHINE FEEDER, PATRICIA S 698.9 Pruritus Nos 07/06/2008 CLINT ASSEMBLY MACHINE FEEDER, PATRICIA S 698.9 Pruritus Nos 07/06/2008 CLINT ASSEMBLY MACHINE FEEDER, PATRICIA S 698.9 Pruritus Nos 07/06/2008 CLINT ASSEMBLY MACHINE FEEDER, PATRICIA S 698.9 Pruritus Nos 09/13/2008 530.81 GERD 09/13/2008 CLINT ASSEMBLY MACHINE FEEDER, PATRICIA S 530.81 GERD 09/13/2008 CLINT ASSEMBLY MACHINE FEEDER, PATRICIA S 530.81 GERD 09/13/2008 530.81 GERD 09/13/2008 530.81 GERD 09/13/2008 CLINT ASSEMBLY MACHINE FEEDER, PATRICIA S 530.81 GERD 09/13/2008 CLINT ASSEMBLY MACHINE FEEDER, PATRICIA S 530.81 GERD 09/13/2008 CLINT ASSEMBLY MACHINE FEEDER, PATRICIA S 530.81 GERD 09/13/2008 CLINT ASSEMBLY MACHINE FEEDER, PATRICIA S 530.81 GERD 09/13/2008 CLINT ASSEMBLY MACHINE FEEDER, PATRICIA S 530.81 GERD 10/16/2009 466.0 ACUTE BRONCHITIS 10/16/2009 CLINT ASSEMBLY MACHINE FEEDER, PATRICIA S 466.0 ACUTE BRONCHITIS 10/16/2009 CLINT ASSEMBLY MACHINE FEEDER, PATRICIA S 466.0 ACUTE BRONCHITIS 10/16/2009 466.0 ACUTE BRONCHITIS 10/16/2009 466.0 ACUTE BRONCHITIS 10/16/2009 CLINT ASSEMBLY MACHINE FEEDER, PATRICIA S 466.0 ACUTE BRONCHITIS 10/16/2009 CLINT ASSEMBLY MACHINE FEEDER, PATRICIA S 466.0 ACUTE BRONCHITIS 10/16/2009 CLINT ASSEMBLY MACHINE FEEDER, PATRICIA S 466.0 ACUTE BRONCHITIS 10/16/2009 CLINT ASSEMBLY MACHINE FEEDER, PATRICIA S 466.0 ACUTE BRONCHITIS 10/16/2009 CLINT ASSEMBLY MACHINE FEEDER, PATRICIA S 466.0 ACUTE BRONCHITIS 08/02/2010 Ot 805.4 08/02/2010 Ot 959.19 08/02/2010 Ot E000.8 08/02/2010 Ot E849.0 08/02/2010 Ot E880.9 08/28/2010 724.2 LUMBAGO 08/28/2010 CLINT ASSEMBLY MACHINE FEEDER, PATRICIA S 724.2 LUMBAGO 08/28/2010 CLINT ASSEMBLY MACHINE FEEDER, PATRICIA S 724.2 LUMBAGO 08/28/2010 724.2 LUMBAGO 08/28/2010 724.2 LUMBAGO 08/28/2010 CLINT ASSEMBLY MACHINE FEEDER, PATRICIA S 724.2 LUMBAGO 08/28/2010 CLINT ASSEMBLY MACHINE FEEDER, PATRICIA S 724.2 LUMBAGO 08/28/2010 CLINT ASSEMBLY MACHINE FEEDER, PATRICIA S 724.2 LUMBAGO 08/28/2010 CLINT ASSEMBLY MACHINE FEEDER, PATRICIA S 724.2 LUMBAGO 08/28/2010 CLINT ASSEMBLY MACHINE FEEDER, PATRICIA S 724.2 LUMBAGO 08/20/2011 V04.81 FLU DX (MEDICARE ONLY) 08/20/2011 YASMEEN JARAMILLO APRNNDA S V04.81 FLU DX (MEDICARE ONLY) 08/20/2011 YASMEEN JARAMILLO APRNNDA S V04.81 FLU DX (MEDICARE ONLY) 08/20/2011 V04.81 FLU DX (MEDICARE ONLY) 08/20/2011 V04.81 FLU DX (MEDICARE ONLY) 08/20/2011 CLINT PADGETT PATRICIA S V04.81 FLU DX (MEDICARE ONLY) 08/20/2011 CLINT MARROQUINN PATRICIA S V04.81 FLU DX (MEDICARE ONLY) 08/20/2011 CLINT PADGETT PATRICIA S V04.81 FLU DX (MEDICARE ONLY) 08/20/2011 CLINT PADGETT PATRICIA S V04.81 FLU DX (MEDICARE ONLY) 08/20/2011 YASMEEN JARAMILLO APRNNDA S V04.81 FLU DX (MEDICARE ONLY) 04/06/2013 V76.12 MAMMOGRAM SCREENING 04/06/2013 YASMEEN JARAMILLO APRNNDA S V76.12 MAMMOGRAM SCREENING 04/06/2013 CLNIT ASSEMBLY MACHINE FEEDER, PATRICIA S V76.12 MAMMOGRAM SCREENING 04/06/2013 CLINT ASSEMBLY MACHINE FEEDER, PATRICIA S V76.12 MAMMOGRAM SCREENING 04/06/2013 CLINT ASSEMBLY MACHINE FEEDER, PATRICIA S V76.12 MAMMOGRAM SCREENING 04/06/2013 CLINT ASSEMBLY MACHINE FEEDER, PATRICIA S V76.12 MAMMOGRAM SCREENING 11/30/2013 CLINT ASSEMBLY MACHINE FEEDER, PATRICIA S 786.2 COUGH 11/30/2013 CLINT ASSEMBLY MACHINE FEEDER, PATRICIA S 786.2 COUGH 11/30/2013 CLINT ASSEMBLY MACHINE FEEDER, PATRICIA S 786.2 COUGH 11/30/2013 CLINT ASSEMBLY MACHINE FEEDER, PATRICIA S 786.2 COUGH 10/16/2014 CLINT ASSEMBLY MACHINE FEEDER, PATRICIA S V15.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 ABUSE 10/16/2014 CLINT ASSEMBLY MACHINE FEEDER, PATRICIA S V15.82 NICOTINE ABUSE 12/21/2014 PATRICIA JARAMILLO CHANNEL PROCESS SUPERVISOR Ot 793.89 12/21/2014 PATRICIA JARAMILLO CHANNEL PROCESS SUPERVISOR Ot V76.12 12/21/2014 PATRICIA JARAMILLO CHANNEL PROCESS SUPERVISOR Ot 793.80 12/26/2014 PATRICIA JARAMILLO CHANNEL PROCESS SUPERVISOR Ot 793.89 12/26/2014 PATRICIA JARAMILLO CHANNEL PROCESS SUPERVISOR Ot V76.12 12/26/2014 PATRICIA JARAMILLO CHANNEL PROCESS SUPERVISOR Ot 793.80 12/27/2014 ELANDRO NELSON DO Ot 278.00 12/27/2014 LEANDRO NELSON DO Ot 496 12/27/2014 LEANDRO NELSON DO Ot 780.54 12/27/2014 LEANDRO NELSON DO Ot 799.02 02/15/2015 LEANDRO NELSON DO Ot 327.23 OBSTRUCTIVE SLEEP APNEA (ADULT) (PEDIATR 04/12/2015 LEANDRO NELSON DO Ot 278.00 04/12/2015 LEANDRO NELSON DO Ot 496 04/12/2015 LEANDRO NELSON DO Ot 780.54 04/12/2015 LEANDRO NELSON DO Ot 799.02 2015 PATRICIA JARAMILLO Ot 793.89 2015 PATRICIA JARAMILLOP Ot V76.12 2015 PATRICIA JARAMILLOP Ot 793.80 2015 LEANDRO NELSON DO Ot 278.00 2015 LEANDRO NELSON DO M Ot 496 2015 LEANDRO NELSON DO M Ot 780.54 2015 LEANDRO NELSON DO M Ot 799.02 2015 LEANDRO NELSON DO M Ot 278.00 2015 LEANDRO NELSON DO M Ot 496 2015 LEANDRO NELSON DO M Ot 780.54 2015 LEANDRO NELSON DO M Ot 799.02 05/08/2015 LEANDRO NELSON DO Ot 278.00 05/08/2015 LEANDRO NELSON DO M Ot 496 05/08/2015 LEANDRO NELSON DO M Ot 780.54 05/08/2015 LEANDRO NELSON DO Ot 799.02 05/13/2015 PATRICIA JARAMILLOP Ot 793.89 05/13/2015 PATRICIA JARAMILLOP Ot V76.12 05/13/2015 PATRICIA JARAMILLOP Ot 793.80 05/13/2015 LEANDRO NELSON DO Ot 278.00 05/13/2015 LEANDRO NELSON DO M Ot 496 05/13/2015 LEANDRO NELSON DO M Ot 780.54 05/13/2015 LEANDRO NELSON DO Ot 799.02 05/13/2015 LEANDRO NELSON DO M Ot 278.00 05/13/2015 LEANDRO NELSON DO M Ot 496 05/13/2015 LEANDRO NELSON DO M Ot 780.54 05/13/2015 LEANDRO NELSON DO M Ot 799.02 07/08/2015 LEANDRO NELSON DO Ot 278.00 OBESITY, NOS 07/08/2015 LEANDRO NELSON DO Ot 496 CHR AIRWAY OBSTRUCT NEC 07/08/2015 LEANDRO NELSON DO M Ot 780.54 HYPERSOMNIA, UNSPECIFIED 07/08/2015 LEANDRO NELSON DO Ot 799.02 HYPOXEMIA 07/11/2015 LEANDRO NELSON DO Ot 278.00 07/11/2015 LESLIELEANDRO SHERMAN DO Ot 496 07/11/2015 LESLIELEANDRO SHERMAN DO Ot 780.54 07/11/2015 LESLIE LEANDRO SHAH Ot 799.02 07/11/2015 LESLIELEANDRO SHEMRAN DO Ot 278.00 07/11/2015 LESLIELEANDRO SHERMAN DO Ot 496 07/11/2015 LESLIE LEANDRO SHAH Ot 780.54 07/11/2015 LESLIE LEANDRO SHAH Ot 799.02 07/12/2015 LESLIELEANDRO SHERMAN DO Ot 278.00 07/12/2015 LESLIELEANDRO SHERMAN DO Ot 496 07/12/2015 LEANDRO NELSON DO Ot 780.54 07/12/2015 LESLIE LEANDRO SHAH Ot 799.02 08/14/2015 LESLIE LEANDRO SHAH Ot 278.00 OBESITY, NOS 08/14/2015 LESLIE SHAH LEANDRO Godinez Ot 496 CHR AIRWAY OBSTRUCT NEC 08/14/2015 LESLIE LEANDRO Godinez Ot 780.54 HYPERSOMNIA, UNSPECIFIED 08/14/2015 LESLIE LEANDRO SHAH Ot 799.02 HYPOXEMIA 02/24/2016 MARY ALCANTARA APRN Ot M25.511 03/03/2016 PATRICIA JARAMILLO Ot M25.511 PAIN IN RIGHT SHOULDER 03/04/2016 Ot F17.201 NICOTINE DEPENDENCE, UNSPECIFIED, IN REM 03/04/2016 Ot J44.9 CHRONIC OBSTRUCTIVE PULMONARY DISEASE, U 03/04/2016 Ot R06.02 SHORTNESS OF BREATH 03/08/2016 PATRICIA JARAMILLO Ot M25.511 PAIN IN RIGHT SHOULDER 03/13/2016 MARY ALCANTARA APRN Ot M25.511 PAIN IN RIGHT SHOULDER 03/23/2016 Ot F17.201 NICOTINE DEPENDENCE, UNSPECIFIED, IN REM 03/23/2016 Ot J44.9 CHRONIC OBSTRUCTIVE PULMONARY DISEASE, U 03/23/2016 Ot R06.02 SHORTNESS OF BREATH 03/23/2016 MARY ALCANTARA APRN Ot M25.511 PAIN IN RIGHT SHOULDER 03/23/2016 Ot F17.201 NICOTINE DEPENDENCE, UNSPECIFIED, IN REM 03/23/2016 Ot J44.9 CHRONIC OBSTRUCTIVE PULMONARY DISEASE, U 03/23/2016 Ot R06.02 SHORTNESS OF BREATH 03/23/2016 QUINTON MRAY Godinez ASSEMBLY MACHINE FEEDER Ot M25.511 PAIN IN RIGHT SHOULDER 03/24/2016 PATRICIA JARAMILLO Ot M25.511 PAIN IN RIGHT SHOULDER 03/31/2016 ALCANTARA, MARY Godinez ASSEMBLY MACHINE FEEDER Ot M25.511 PAIN IN RIGHT SHOULDER 04/06/2016 PATRICIA JARAMILLO Ot M25.511 PAIN IN RIGHT SHOULDER 04/06/2016 PATRICIA JARAMILLO Ot M25.511 PAIN IN RIGHT SHOULDER 04/23/2016 PATRICIA JARAMILLO Ot M25.511 PAIN IN RIGHT SHOULDER 10/02/2016 LEANDRO NELSON DO Ot 278.00 10/02/2016 LEANDRO NELSON DO Ot 496 10/02/2016 LEANDRO NELSON DO Ot 780.54 10/02/2016 LEANDRO NELSON DO Ot 799.02 10/02/2016 VIET THOMAS DO Ot J44.1 CHRONIC OBSTRUCTIVE PULMONARY DISEASE W 10/02/2016 VIET THOMAS DO Ot K44.9 DIAPHRAGMATIC HERNIA WITHOUT OBSTRUCTION 10/02/2016 VIET THOMAS DO Ot K80.20 CALCULUS OF GALLBLADDER W/O CHOLECYSTITI 10/02/2016 VIET THOMAS DO Ot R06.02 SHORTNESS OF BREATH 10/02/2016 VIET THOMAS DO Ot R91.8 OTHER NONSPECIFIC ABNORMAL FINDING OF NEHEMIAH 10/02/2016 PATRICIA JARAMILLO Ot 793.89 OTH (ABN) FINDINGS ON RADIOLOGICAL EXAMI 10/02/2016 PATRICIA JARAMILLO Ot V76.12 OTH SCREEN MAMMO-MALIGN NEOPLASM OF BRANDON 10/02/2016 PATRICIA JARAMILLO Ot 793.80 UNSPEC ABNORMAL MAMMOGRAM 10/02/2016 LEANDRO NELSON DO Ot 278.00 OBESITY, NOS 10/02/2016 LEANDRO NELSON DO Ot 496 CHR AIRWAY OBSTRUCT NEC 10/02/2016 LEANDRO NELSON DO Ot 780.54 HYPERSOMNIA, UNSPECIFIED 10/02/2016 LEANDRO NELSON DO Ot 799.02 HYPOXEMIA 10/02/2016 LEANDRO NELSON DO Ot 278.00 10/02/2016 LEANDRO NELSON DO Ot 496 10/02/2016 LEANDRO NELSON DO Ot 780.54 10/02/2016 LEANDRO NELSON DO Ot 799.02 10/02/2016 Ot F17.201 NICOTINE DEPENDENCE, UNSPECIFIED, IN REM 10/02/2016 Ot J44.9 CHRONIC OBSTRUCTIVE PULMONARY DISEASE, U 10/02/2016 Ot R06.02 SHORTNESS OF BREATH 10/02/2016 ALCANTARA MARY Gretchen ASSEMBLY MACHINE FEEDER Ot M25.511 PAIN IN RIGHT SHOULDER 10/02/2016 PATRICIA JARAMILLO CHANNEL PROCESS SUPERVISOR Ot M25.511 PAIN IN RIGHT SHOULDER 10/05/2016 VIET THOMAS DO Ot J44.1 CHRONIC OBSTRUCTIVE PULMONARY DISEASE W 10/05/2016 VIET THOMAS DO Ot K44.9 DIAPHRAGMATIC HERNIA WITHOUT OBSTRUCTION 10/05/2016 VIET THOMAS DO Ot K80.20 CALCULUS OF GALLBLADDER W/O CHOLECYSTITI 10/05/2016 VIET THOMAS DO Ot R06.02 SHORTNESS OF BREATH 10/05/2016 VIET THOMAS DO Ot R91.8 OTHER NONSPECIFIC ABNORMAL FINDING OF NEHEMIAH 10/05/2016 VIET THOMAS DO Ot J44.1 CHRONIC OBSTRUCTIVE PULMONARY DISEASE W 10/05/2016 VIET THOMAS DO Ot K44.9 DIAPHRAGMATIC HERNIA WITHOUT OBSTRUCTION 10/05/2016 VIET THOMAS DO Ot K80.20 CALCULUS OF GALLBLADDER W/O CHOLECYSTITI 10/05/2016 VIET THOMAS DO Ot R06.02 SHORTNESS OF BREATH 10/05/2016 VIET THOMAS DO Ot R91.8 OTHER NONSPECIFIC ABNORMAL FINDING OF NEHEMIAH 10/20/2016 LEANDRO NELSON DO Ot 278.00 10/20/2016 LEANDRO NELSON DO Ot 496 10/20/2016 LEANDRO NELSON DO Ot 780.54 10/20/2016 LEANDRO NELSON DO Ot 799.02 10/20/2016 LEANDRO NELSON DO Ot G47.33 OBSTRUCTIVE SLEEP APNEA (ADULT) (PEDIATR 10/20/2016 LEANDRO NELSON DO Ot G47.34 IDIO SLEEP RELATED NONOBSTRUCTIVE ALVEOL 10/20/2016 LEANDRO NELSON DO Ot J44.9 CHRONIC OBSTRUCTIVE PULMONARY DISEASE, U 10/20/2016 LEANDRO NELSON DO Ot R06.02 SHORTNESS OF BREATH 10/20/2016 LEANDRO NELSON DO Ot Z01.818 ENCOUNTER FOR OTHER PREPROCEDURAL EXAMIN 10/21/2016 LEANDRO NELSON DO Ot R91.8 OTHER NONSPECIFIC ABNORMAL FINDING OF NEHEMIAH 10/22/2016 LEANDRO NELSON DO Ot R91.8 OTHER NONSPECIFIC ABNORMAL FINDING OF [place]H 10/29/2016 LEANDRO NELSON DO Ot J44.9 CHRONIC OBSTRUCTIVE PULMONARY DISEASE, U 10/29/2016 LEANDRO NELSON DO Ot R06.02 SHORTNESS OF BREATH 10/29/2016 LEANDRO NELSON DO Ot J44.9 CHRONIC OBSTRUCTIVE PULMONARY DISEASE, U 10/29/2016 LEANDRO NELSON DO Ot R06.02 SHORTNESS OF BREATH 11/03/2016 STEVEN FALCON MD Ot K80.20 CALCULUS OF GALLBLADDER W/O CHOLECYSTITI 11/03/2016 STEVEN FALCON MD Ot Z01.818 ENCOUNTER FOR OTHER PREPROCEDURAL EXAMIN 11/03/2016 STEVEN FALCON MD Ot Z11.2 ENCOUNTER FOR SCREENING FOR OTHER BACTER 11/03/2016 LEANDRO NELSON DO Ot R91.8 OTHER NONSPECIFIC ABNORMAL FINDING OF NEHEMIAH 11/04/2016 STEVEN FALCON MD Ot K80.20 CALCULUS OF GALLBLADDER W/O CHOLECYSTITI 11/04/2016 STEVEN FALCON MD Ot Z01.818 ENCOUNTER FOR OTHER PREPROCEDURAL EXAMIN 11/04/2016 STEVEN FALCON MD Ot Z11.2 ENCOUNTER FOR SCREENING FOR OTHER BACTER 11/05/2016 STEVEN FALCON MD Ot K80.10 CALCULUS OF GALLBLADDER W CHRONIC CHOLEC 11/06/2016 STEVEN FALCON MD Ot K80.10 CALCULUS OF GALLBLADDER W CHRONIC CHOLEC 11/09/2016 STEVEN FALCON MD Ot K80.20 CALCULUS OF GALLBLADDER W/O CHOLECYSTITI 11/09/2016 STEVEN FALCON MD Ot Z01.818 ENCOUNTER FOR OTHER PREPROCEDURAL EXAMIN 11/09/2016 STEVEN FALCON MD Ot Z11.2 ENCOUNTER FOR SCREENING FOR OTHER BACTER 11/11/2016 STEVEN FALCON MD Ot K80.10 CALCULUS OF GALLBLADDER W CHRONIC CHOLEC 11/12/2016 STEVEN FALCON MD Ot K80.10 CALCULUS OF GALLBLADDER W CHRONIC CHOLEC 11/13/2016 CLINTPATRICIA REYNOLDS Ot 793.89 OTH (ABN) FINDINGS ON RADIOLOGICAL EXAMI 11/13/2016 PATRICIA JARAMILLO Ot V76.12 OTH SCREEN MAMMO-MALIGN NEOPLASM OF BRANDON 11/13/2016 PATRICIA JARAMILLO Ot 793.80 UNSPEC ABNORMAL MAMMOGRAM 11/13/2016 LEANDRO NELSON DO Ot 278.00 OBESITY, NOS 11/13/2016 LEANDRO NELSON DO Ot 496 CHR AIRWAY OBSTRUCT NEC 11/13/2016 LEANDRO NELSON DO Ot 780.54 HYPERSOMNIA, UNSPECIFIED 11/13/2016 LEANDRO NELSON DO Ot 799.02 HYPOXEMIA 11/13/2016 LEANDRO NELSON DO Ot 278.00 11/13/2016 LEANDRO NELSON DO Ot 496 11/13/2016 LEANDRO NELSON DO Ot 780.54 11/13/2016 LEANDRO NELSON DO Ot 799.02 11/13/2016 Ot F17.201 NICOTINE DEPENDENCE, UNSPECIFIED, IN REM 11/13/2016 Ot J44.9 CHRONIC OBSTRUCTIVE PULMONARY DISEASE, U 11/13/2016 Ot R06.02 SHORTNESS OF BREATH 11/13/2016 MARY ALCANTARA APRN Ot M25.511 PAIN IN RIGHT SHOULDER 11/13/2016 PATRICIA JARAMILLO Ot M25.511 PAIN IN RIGHT SHOULDER 11/13/2016 LEANDRO NELSON DO Ot G47.33 OBSTRUCTIVE SLEEP APNEA (ADULT) (PEDIATR 11/13/2016 LEANDRO NELSON DO Ot G47.34 IDIO SLEEP RELATED NONOBSTRUCTIVE ALVEOL 11/13/2016 LEANDRO NELSON DO Ot J44.9 CHRONIC OBSTRUCTIVE PULMONARY DISEASE, U 11/13/2016 LEANDRO NELSON DO Ot R06.02 SHORTNESS OF BREATH 11/13/2016 LEANDRO NELSON DO Ot Z01.818 ENCOUNTER FOR OTHER PREPROCEDURAL EXAMIN 11/13/2016 LEANDRO NELSON DO Ot J44.9 CHRONIC OBSTRUCTIVE PULMONARY DISEASE, U 11/13/2016 LEANDRO NELSON DO Ot R06.02 SHORTNESS OF BREATH 11/13/2016 LEANDRO NELSON DO Ot J44.9 CHRONIC OBSTRUCTIVE PULMONARY DISEASE, U 11/13/2016 LEANDRO NELSON DO Ot R06.02 SHORTNESS OF BREATH 11/13/2016 PATRICIA JARAMILLO Ot M25.511 PAIN IN RIGHT SHOULDER 11/20/2016 PATRICIA JARAMILLO Ot M25.511 PAIN IN RIGHT SHOULDER 11/24/2016 LEANDRO NELSON DO Ot J44.9 CHRONIC OBSTRUCTIVE PULMONARY DISEASE, U 11/24/2016 LEANDRO NELSON DO Ot R06.02 SHORTNESS OF BREATH 11/24/2016 SATHISH MURPHY MD Ot R11.2 NAUSEA WITH VOMITING, UNSPECIFIED 11/30/2016 SATHISH MURPHY MD Ot R11.2 NAUSEA WITH VOMITING, UNSPECIFIED 12/09/2016 LEANDRO NELSON DO Ot J44.9 CHRONIC OBSTRUCTIVE PULMONARY DISEASE, U 12/09/2016 LEANDRO NELSON DO Ot R06.02 SHORTNESS OF BREATH 04/15/2017 PATRICIA JARAMILLOP Ot 793.89 OTH (ABN) FINDINGS ON RADIOLOGICAL EXAMI 04/15/2017 PATRICIA JARAMILLO Ot V76.12 OTH SCREEN MAMMO-MALIGN NEOPLASM OF BRANDON 04/15/2017 PATRICIA JARAMILLOP Ot 793.80 UNSPEC ABNORMAL MAMMOGRAM 04/15/2017 LEANDRO NELSON DO Ot 278.00 OBESITY, NOS 04/15/2017 LEANDRO NELSON DO Ot 496 CHR AIRWAY OBSTRUCT NEC 04/15/2017 LEANDRO NELSON DO Ot 780.54 HYPERSOMNIA, UNSPECIFIED 04/15/2017 LEANDRO NELSON DO Ot 799.02 HYPOXEMIA 04/15/2017 LEANDRO NLESON DO Ot 278.00 04/15/2017 LEANDRO NELSON DO Ot 496 04/15/2017 LEANDRO NELSON DO Ot 780.54 04/15/2017 LEANDRO NELSON DO Ot 799.02 04/15/2017 Ot F17.201 NICOTINE DEPENDENCE, UNSPECIFIED, IN REM 04/15/2017 Ot J44.9 CHRONIC OBSTRUCTIVE PULMONARY DISEASE, U 04/15/2017 Ot R06.02 SHORTNESS OF BREATH 04/15/2017 ALCANTARAMARY TAMEZ ASSEMBLY MACHINE FEEDER Ot M25.511 PAIN IN RIGHT SHOULDER 04/15/2017 CLINTPATRICIA REYNOLDS MARYLIN Ot M25.511 PAIN IN RIGHT SHOULDER 04/15/2017 LEANDRO NELSON DO Ot G47.33 OBSTRUCTIVE SLEEP APNEA (ADULT) (PEDIATR 04/15/2017 LEANDRO NELSON DO Ot G47.34 IDIO SLEEP RELATED NONOBSTRUCTIVE ALVEOL 04/15/2017 LEANDRO NELSON DO Ot J44.9 CHRONIC OBSTRUCTIVE PULMONARY DISEASE, U 04/15/2017 LEANDRO NELSON DO Ot R06.02 SHORTNESS OF BREATH 04/15/2017 LEANDRO NELSON DO Ot Z01.818 ENCOUNTER FOR OTHER PREPROCEDURAL EXAMIN 04/15/2017 LEANDRO NELSON DO Ot J44.9 CHRONIC OBSTRUCTIVE PULMONARY DISEASE, U 04/15/2017 LEANDRO NELSON DO Ot R06.02 SHORTNESS OF BREATH 04/16/2017 LEANDRO NELSON DO Ot G47.33 OBSTRUCTIVE SLEEP APNEA (ADULT) (PEDIATR 04/16/2017 LEANDRO NELSON DO Ot G47.34 IDIO SLEEP RELATED NONOBSTRUCTIVE ALVEOL 04/16/2017 LEANDRO NELSON DO Ot J44.9 CHRONIC OBSTRUCTIVE PULMONARY DISEASE, U 04/16/2017 LEANDRO NELSON DO Ot R06.02 SHORTNESS OF BREATH 04/16/2017 LEANDRO NELSON DO Ot G47.33 OBSTRUCTIVE SLEEP APNEA (ADULT) (PEDIATR 04/16/2017 LEANDRO NELSON DO Ot G47.34 IDIO SLEEP RELATED NONOBSTRUCTIVE ALVEOL 04/16/2017 LEANDRO NELSON DO Ot J44.9 CHRONIC OBSTRUCTIVE PULMONARY DISEASE, U 04/16/2017 LEANDRO NELSON DO Ot R06.02 SHORTNESS OF BREATH 04/16/2017 LEANDRO NELSON DO Ot G47.33 OBSTRUCTIVE SLEEP APNEA (ADULT) (PEDIATR 04/16/2017 LEANDRO NELSON DO Ot G47.34 IDIO SLEEP RELATED NONOBSTRUCTIVE ALVEOL 04/16/2017 LEANDRO NELSON DO Ot J44.9 CHRONIC OBSTRUCTIVE PULMONARY DISEASE, U 04/16/2017 LEANDRO NELSON DO Ot R06.02 SHORTNESS OF BREATH 04/22/2017 LEANDRO NELSON DO Ot G47.33 OBSTRUCTIVE SLEEP APNEA (ADULT) (PEDIATR 04/22/2017 LESLIE DOLEANDRO Ot G47.34 IDIO SLEEP RELATED NONOBSTRUCTIVE ALVEOL 04/22/2017 LEANDRO NELSON DO Ot J44.9 CHRONIC OBSTRUCTIVE PULMONARY DISEASE, U 04/22/2017 LEANDRO NELSON DO Ot R06.02 SHORTNESS OF BREATH 05/06/2017 LEANDRO NELSON DO Ot G47.33 OBSTRUCTIVE SLEEP APNEA (ADULT) (PEDIATR 05/06/2017 LESLIELEANDRO SHERMAN DO Ot G47.34 IDIO SLEEP RELATED NONOBSTRUCTIVE ALVEOL 05/06/2017 LEANDRO NELSON DO Ot J44.9 CHRONIC OBSTRUCTIVE PULMONARY DISEASE, U 05/06/2017 LEANDRO NELSON DO Ot R06.02 SHORTNESS OF BREATH 05/14/2017 LEANDRO NELSON DO Ot G47.33 OBSTRUCTIVE SLEEP APNEA (ADULT) (PEDIATR 05/14/2017 LEANDRO NELSON DO Ot G47.34 IDIO SLEEP RELATED NONOBSTRUCTIVE ALVEOL 05/14/2017 LEANDRO NELSON DO Ot J44.9 CHRONIC OBSTRUCTIVE PULMONARY DISEASE, U 05/14/2017 LEANDRO NELSON DO Ot R06.02 SHORTNESS OF BREATH 05/17/2017 LEANDRO NELSON DO Ot G47.33 OBSTRUCTIVE SLEEP APNEA (ADULT) (PEDIATR 05/17/2017 LEANDRO NELSON DO Ot G47.34 IDIO SLEEP RELATED NONOBSTRUCTIVE ALVEOL 05/17/2017 LEANDRO NELSON DO Ot J44.9 CHRONIC OBSTRUCTIVE PULMONARY DISEASE, U 05/17/2017 LESLIELEANDRO SHERMAN DO Ot R06.02 SHORTNESS OF BREATH 05/20/2017 LESLIELEANDRO SHERMAN DO Ot G47.33 OBSTRUCTIVE SLEEP APNEA (ADULT) (PEDIATR 05/20/2017 LESLIELEANDRO SHERMAN DO Ot G47.34 IDIO SLEEP RELATED NONOBSTRUCTIVE ALVEOL 05/20/2017 LESLIELEANDRO SHERMAN DO Ot J44.9 CHRONIC OBSTRUCTIVE PULMONARY DISEASE, U 05/20/2017 LESLIELEANDRO SHERMAN DO Ot R06.02 SHORTNESS OF BREATH 03/21/2018 KEAGAN CARTAGENA APRN Ot Z12.2 ENCNTR SCREEN FOR MALIGNANT NEOPLASM OF 03/21/2018 KEAGAN CARTAGENA APRN Ot Z12.2 ENCNTR SCREEN FOR MALIGNANT NEOPLASM OF 04/12/2018 KEAGAN CARTAGENA APRN Ot Z12.2 ENCNTR SCREEN FOR MALIGNANT NEOPLASM OF 04/15/2018 PATRICIA JARAMILLO Ot 793.89 OTH (ABN) FINDINGS ON RADIOLOGICAL EXAMI 04/15/2018 PATRICIA JARAMILLO Ot V76.12 OTH SCREEN MAMMO-MALIGN NEOPLASM OF [place] 04/15/2018 PATRICIA JARAMILLO Ot 793.80 UNSPEC ABNORMAL MAMMOGRAM 04/15/2018 LEANDRO NELSON DO Ot 278.00 OBESITY, NOS 04/15/2018 LEANDRO NELSON DO Ot 496 CHR AIRWAY OBSTRUCT NEC 04/15/2018 LEANDRO NELSON DO Ot 780.54 HYPERSOMNIA, UNSPECIFIED 04/15/2018 LEANDRO NELSON DO Ot 799.02 HYPOXEMIA 04/15/2018 LEANDRO NELSON DO Ot 278.00 04/15/2018 LEANDRO NELSON DO Ot 496 04/15/2018 LEANDRO NELSON DO Ot 780.54 04/15/2018 LEANDRO NELSON DO Ot 799.02 04/15/2018 Ot F17.201 NICOTINE DEPENDENCE, UNSPECIFIED, IN REM 04/15/2018 Ot J44.9 CHRONIC OBSTRUCTIVE PULMONARY DISEASE, U 04/15/2018 Ot R06.02 SHORTNESS OF BREATH 04/15/2018 MARY ALCANTARA APRN Ot M25.511 PAIN IN RIGHT SHOULDER 04/15/2018 PATRICIA JARAMILLO Ot M25.511 PAIN IN RIGHT SHOULDER 04/15/2018 LEANDRO NELSON DO Ot G47.33 OBSTRUCTIVE SLEEP APNEA (ADULT) (PEDIATR 04/15/2018 LEANDRO NELSON DO Ot G47.34 IDIO SLEEP RELATED NONOBSTRUCTIVE ALVEOL 04/15/2018 LEANDRO NELSON DO Ot J44.9 CHRONIC OBSTRUCTIVE PULMONARY DISEASE, U 04/15/2018 LEANDRO NELSON DO Ot R06.02 SHORTNESS OF BREATH 04/15/2018 LEANDRO NELSON DO Ot Z01.818 ENCOUNTER FOR OTHER PREPROCEDURAL EXAMIN 04/15/2018 LEANDRO NELSON DO Ot J44.9 CHRONIC OBSTRUCTIVE PULMONARY DISEASE, U 04/15/2018 LEANDRO NELSON DO Ot R06.02 SHORTNESS OF BREATH 04/15/2018 LEANDRO NELSON DO Ot G47.33 OBSTRUCTIVE SLEEP APNEA (ADULT) (PEDIATR 04/15/2018 LEANDRO NELSON DO Ot G47.34 IDIO SLEEP RELATED NONOBSTRUCTIVE ALVEOL 04/15/2018 LEANDRO NELSON DO Ot J44.9 CHRONIC OBSTRUCTIVE PULMONARY DISEASE, U 04/15/2018 LEANDRO NELSON DO Ot R06.02 SHORTNESS OF BREATH 04/15/2018 KEAGAN CARTAGENA ASSEMBLY MACHINE FEEDER Ot Z12.2 ENCNTR SCREEN FOR MALIGNANT NEOPLASM OF 04/15/2018 KEAGAN CARTAGENA ASSEMBLY MACHINE FEEDER Ot Z12.2 ENCNTR SCREEN FOR MALIGNANT NEOPLASM OF 04/21/2018 KEAGAN CARTAGENA ASSEMBLY MACHINE FEEDER Ot Z12.2 ENCNTR SCREEN FOR MALIGNANT NEOPLASM OF 04/21/2018 KEAGAN CARTAGENA ASSEMBLY MACHINE FEEDER Ot Z87.891 PERSONAL HISTORY OF NICOTINE DEPENDENCE 04/21/2018 KEAGAN CARTAGENA ASSEMBLY MACHINE FEEDER Ot Z12.2 ENCNTR SCREEN FOR MALIGNANT NEOPLASM OF 04/21/2018 KEAGAN CARTAGENA ASSEMBLY MACHINE FEEDER Ot Z87.891 PERSONAL HISTORY OF NICOTINE DEPENDENCE 05/11/2018 KEAGAN CARTAGENA ASSEMBLY MACHINE FEEDER Ot Z12.2 ENCNTR SCREEN FOR MALIGNANT NEOPLASM OF 05/11/2018 KEAGAN CARTAGENA ASSEMBLY MACHINE FEEDER Ot Z87.891 PERSONAL HISTORY OF NICOTINE DEPENDENCE 04/04/2019 LEANDRO NELSON DO Ot 278.00 OBESITY, NOS 04/04/2019 LEANDRO NELSON DO Ot 496 CHR AIRWAY OBSTRUCT NEC 04/04/2019 LEANDRO NELSON DO Ot 780.54 HYPERSOMNIA, UNSPECIFIED 04/04/2019 LEANDRO NELSON DO Ot 799.02 HYPOXEMIA 04/04/2019 LEANDRO NELSON DO Ot 278.00 04/04/2019 LEANDRO NELSON DO Ot 496 04/04/2019 LEANDRO NELSON DO Ot 780.54 04/04/2019 LEANDRO NELSON DO Ot 799.02 04/04/2019 Ot F17.201 NICOTINE DEPENDENCE, UNSPECIFIED, IN REM 04/04/2019 Ot J44.9 CHRONIC OBSTRUCTIVE PULMONARY DISEASE, U 04/04/2019 Ot R06.02 SHORTNESS OF BREATH 04/04/2019 MARY ALCANTARA APRN Ot M25.511 PAIN IN RIGHT SHOULDER 04/04/2019 PATRICIA JARAMILLO MARYLIN Ot M25.511 PAIN IN RIGHT SHOULDER 04/04/2019 LEANDRO NELSON DO Ot G47.33 OBSTRUCTIVE SLEEP APNEA (ADULT) (PEDIATR 04/04/2019 LEANDRO NELSON DO Ot G47.34 IDIO SLEEP RELATED NONOBSTRUCTIVE ALVEOL 04/04/2019 LEANDRO NELSON DO Ot J44.9 CHRONIC OBSTRUCTIVE PULMONARY DISEASE, U 04/04/2019 LEANDRO NELSON DO Ot R06.02 SHORTNESS OF BREATH 04/04/2019 LEANDRO NELSON DO Ot Z01.818 ENCOUNTER FOR OTHER PREPROCEDURAL EXAMIN 04/04/2019 LEANDRO NELSON DO Ot J44.9 CHRONIC OBSTRUCTIVE PULMONARY DISEASE, U 04/04/2019 LEANDRO NELSON DO Ot R06.02 SHORTNESS OF BREATH 04/04/2019 LEANDRO NELSON DO Ot G47.33 OBSTRUCTIVE SLEEP APNEA (ADULT) (PEDIATR 04/04/2019 LEANDRO NELSON DO Ot G47.34 IDIO SLEEP RELATED NONOBSTRUCTIVE ALVEOL 04/04/2019 LEANDRO NELSON DO Ot J44.9 CHRONIC OBSTRUCTIVE PULMONARY DISEASE, U 04/04/2019 LEANDRO NELSON DO Ot R06.02 SHORTNESS OF BREATH 04/04/2019 KEAGAN CARTAGENA APRN Ot Z12.2 ENCNTR SCREEN FOR MALIGNANT NEOPLASM OF 04/04/2019 KEAGAN CARTAGENA APRN Ot Z87.891 PERSONAL HISTORY OF NICOTINE DEPENDENCE 04/11/2019 LEANDRO NELSON DO Ot 278.00 OBESITY, NOS 04/11/2019 LEANDRO NELSON DO Ot 496 CHR AIRWAY OBSTRUCT NEC 04/11/2019 LEANDRO NELSON DO Ot 780.54 HYPERSOMNIA, UNSPECIFIED 04/11/2019 LEANDRO NELSON DO Ot 799.02 HYPOXEMIA 04/11/2019 LEANDRO NELSON DO Ot 278.00 04/11/2019 LEANDRO NELSON DO Ot 496 04/11/2019 LEANDRO NELSON DO Ot 780.54 04/11/2019 LEANDRO NELSON DO Ot 799.02 04/11/2019 Ot F17.201 NICOTINE DEPENDENCE, UNSPECIFIED, IN REM 04/11/2019 Ot J44.9 CHRONIC OBSTRUCTIVE PULMONARY DISEASE, U 04/11/2019 Ot R06.02 SHORTNESS OF BREATH 04/11/2019 MARY ALCANTARA APRN Ot M25.511 PAIN IN RIGHT SHOULDER 04/11/2019 PATRICIA JARAMILLO Ot M25.511 PAIN IN RIGHT SHOULDER 04/11/2019 LEANDRO NELSON DO Ot G47.33 OBSTRUCTIVE SLEEP APNEA (ADULT) (PEDIATR 04/11/2019 LEANDRO NELSON DO Ot G47.34 IDIO SLEEP RELATED NONOBSTRUCTIVE ALVEOL 04/11/2019 LEANDRO NELSON DO Ot J44.9 CHRONIC OBSTRUCTIVE PULMONARY DISEASE, U 04/11/2019 LEANDRO NELSON DO Ot R06.02 SHORTNESS OF BREATH 04/11/2019 LEANDRO NELSON DO Ot Z01.818 ENCOUNTER FOR OTHER PREPROCEDURAL EXAMIN 04/11/2019 LEANDRO NELSON DO Ot J44.9 CHRONIC OBSTRUCTIVE PULMONARY DISEASE, U 04/11/2019 LEANDRO NELSON DO Ot R06.02 SHORTNESS OF BREATH 04/11/2019 LEANDRO NELSON DO Ot G47.33 OBSTRUCTIVE SLEEP APNEA (ADULT) (PEDIATR 04/11/2019 LEANDRO NELSON DO Ot G47.34 IDIO SLEEP RELATED NONOBSTRUCTIVE ALVEOL 04/11/2019 LEANDRO NELSON DO Ot J44.9 CHRONIC OBSTRUCTIVE PULMONARY DISEASE, U 04/11/2019 LEANDRO NELSON DO Ot R06.02 SHORTNESS OF BREATH 04/11/2019 KEAGAN CARTAGENA APRN Ot Z12.2 ENCNTR SCREEN FOR MALIGNANT NEOPLASM OF 04/11/2019 KEAGAN CARTAGENA APRN Ot Z87.891 PERSONAL HISTORY OF NICOTINE DEPENDENCE 04/12/2019 PATRICIA JARAMILLO Ot M23.203 DERANG OF UNSP MEDIAL MENISCUS DUE TO OL 04/12/2019 PATRICIA JARAMILLO Ot M94.8X8 OTHER SPECIFIED DISORDERS OF CARTILAGE, 04/14/2019 KEAAGN CARTAGENA ASSEMBLY MACHINE FEEDER Ot Z87.891 PERSONAL HISTORY OF NICOTINE DEPENDENCE 04/17/2019 PATRICIA JARAMILLO CHANNEL PROCESS SUPERVISOR Ot M23.203 DERANG OF UNSP MEDIAL MENISCUS DUE TO OL 04/17/2019 PATRICIA JARAMILLO CHANNEL PROCESS SUPERVISOR Ot M94.8X8 OTHER SPECIFIED DISORDERS OF CARTIL[place], 04/21/2019 KEAGAN CARTAGENA ASSEMBLY MACHINE FEEDER Ot Z87.891 PERSONAL HISTORY OF NICOTINE DEPENDENCE 04/25/2019 KEAGAN CARTAGENA ASSEMBLY MACHINE FEEDER Ot Z87.891 PERSONAL HISTORY OF NICOTINE DEPENDENCE 04/30/2019 KEAGAN CARTAGENA ASSEMBLY MACHINE FEEDER Ot I25.10 ATHSCL HEART DISEASE OF [place] CORONARY 04/30/2019 KEAGAN CARTAGENA ASSEMBLY MACHINE FEEDER Ot J44.9 CHRONIC OBSTRUCTIVE PULMONARY DISEASE, U 04/30/2019 KEAGAN CARTAGENA ASSEMBLY MACHINE FEEDER Ot K44.9 DIAPHRAGMATIC HERNIA WITHOUT OBSTRUCTION 04/30/2019 KEAGAN CARTAGENA ASSEMBLY MACHINE FEEDER Ot Z12.2 ENCNTR SCREEN FOR MALIGNANT NEOPLASM OF 04/30/2019 KEAGAN CARTAGENA ASSEMBLY MACHINE FEEDER Ot Z87.891 PERSONAL HISTORY OF NICOTINE DEPENDENCE 05/02/2019 KEAGAN CARTAGENA ASSEMBLY MACHINE FEEDER Ot I25.10 ATHSCL HEART DISEASE OF [place] CORONARY 05/02/2019 KEAGAN CARTAGENA ASSEMBLY MACHINE FEEDER Ot J44.9 CHRONIC OBSTRUCTIVE PULMONARY DISEASE, U 05/02/2019 KEAGAN CARTAGENA ASSEMBLY MACHINE FEEDER Ot K44.9 DIAPHRAGMATIC HERNIA WITHOUT OBSTRUCTION 05/02/2019 KEAGAN CARTAGENA ASSEMBLY MACHINE FEEDER Ot Z12.2 ENCNTR SCREEN FOR MALIGNANT NEOPLASM OF 05/02/2019 KEAGAN CARTAGENA ASSEMBLY MACHINE FEEDER Ot Z87.891 PERSONAL HISTORY OF NICOTINE DEPENDENCE 05/04/2019 PATRICIA JARAMILLO CHANNEL PROCESS SUPERVISOR Ot M23.203 DERANG OF UNSP MEDIAL MENISCUS DUE TO OL 05/04/2019 PATRICIA JARAMILLO CHANNEL PROCESS SUPERVISOR Ot M94.8X8 OTHER SPECIFIED DISORDERS OF CARTILAGE, 05/05/2019 PATRICIA JARAMILLO CHANNEL PROCESS SUPERVISOR Ot M23.203 DERANG OF UNSP MEDIAL MENISCUS DUE TO OL 05/05/2019 PATRICIA JARAMILLO CHANNEL PROCESS SUPERVISOR Ot M94.8X8 OTHER SPECIFIED DISORDERS OF CARTIL[place], 05/22/2019 KEAGAN CARTAGENA ASSEMBLY MACHINE FEEDER Ot I25.10 ATHSCL HEART DISEASE OF [place] CORONARY 05/22/2019 KEAGAN CARTAGENA APRN Ot J44.9 CHRONIC OBSTRUCTIVE PULMONARY DISEASE, U 05/22/2019 KEAGAN CARTAGENA APRN Ot K44.9 DIAPHRAGMATIC HERNIA WITHOUT OBSTRUCTION 05/22/2019 KEAGAN CARTAGENA APRN Ot Z12.2 ENCNTR SCREEN FOR MALIGNANT NEOPLASM OF 05/22/2019 KEAGAN CARTAGENA APRN Ot Z87.891 PERSONAL HISTORY OF NICOTINE DEPENDENCE 05/30/2019 LEANDRO NELSON DO Ot 278.00 OBESITY, NOS 05/30/2019 LEANDRO NELSON DO Ot 496 CHR AIRWAY OBSTRUCT NEC 05/30/2019 LEANDRO NELSON DO Ot 780.54 HYPERSOMNIA, UNSPECIFIED 05/30/2019 LEANDRO NELSON DO Ot 799.02 HYPOXEMIA 05/30/2019 LEANDRO NELSON DO Ot 278.00 05/30/2019 LEANDRO NELSON DO Ot 496 05/30/2019 LEANDRO NELSON DO Ot 780.54 05/30/2019 LEANDRO NELSON DO Ot 799.02 05/30/2019 Ot F17.201 NICOTINE DEPENDENCE, UNSPECIFIED, IN REM 05/30/2019 Ot J44.9 CHRONIC OBSTRUCTIVE PULMONARY DISEASE, U 05/30/2019 Ot R06.02 SHORTNESS OF BREATH 05/30/2019 MARY ALCANTARA APRN Ot M25.511 PAIN IN RIGHT SHOULDER 05/30/2019 PATRICIA JARAMILLO [facility] Ot M25.511 PAIN IN RIGHT SHOULDER 05/30/2019 LEANDRO NELSON DO Ot G47.33 OBSTRUCTIVE SLEEP APNEA (ADULT) (PEDIATR 05/30/2019 LEANDRO NELSON DO Ot G47.34 IDIO SLEEP RELATED NONOBSTRUCTIVE ALVEOL 05/30/2019 LEANDRO NELSON DO Ot J44.9 CHRONIC OBSTRUCTIVE PULMONARY DISEASE, U 05/30/2019 LEANDRO NELSON DO Ot R06.02 SHORTNESS OF BREATH 05/30/2019 LEANDRO NELSON DO Ot Z01.818 ENCOUNTER FOR OTHER PREPROCEDURAL EXAMIN 05/30/2019 LEANDRO NELSON DO, Ot J44.9 CHRONIC OBSTRUCTIVE PULMONARY DISEASE, U 05/30/2019 LEANDRO NELSON DO Ot R06.02 SHORTNESS OF BREATH 05/30/2019 LEANDRO NELOSN DO Ot G47.33 OBSTRUCTIVE SLEEP APNEA (ADULT) (PEDIATR 05/30/2019 LEANDRO NELSON DO Ot G47.34 IDIO SLEEP RELATED NONOBSTRUCTIVE ALVEOL 05/30/2019 LEANDRO NELSON DO Ot J44.9 CHRONIC OBSTRUCTIVE PULMONARY DISEASE, U 05/30/2019 LEANDRO NELSON DO Ot R06.02 SHORTNESS OF BREATH 05/30/2019 KEAGAN CARTAGENA APRN Ot Z12.2 ENCNTR SCREEN FOR MALIGNANT NEOPLASM OF 05/30/2019 KEAGAN CRATAGENA APRN Ot Z87.891 PERSONAL HISTORY OF NICOTINE DEPENDENCE 05/30/2019 KEAGAN CARTAGENA APRN Ot I25.10 ATHSCL HEART DISEASE OF [place] CORONARY 05/30/2019 KEAGAN CARTAGENA APRN Ot J44.9 CHRONIC OBSTRUCTIVE PULMONARY DISEASE, U 05/30/2019 KEAGAN CARTAGENA APRN Ot K44.9 DIAPHRAGMATIC HERNIA WITHOUT OBSTRUCTION 05/30/2019 KEAGAN CARTAGENA APRN Ot Z12.2 ENCNTR SCREEN FOR MALIGNANT NEOPLASM OF 05/30/2019 KEAGAN CARTAGENA APRN Ot Z87.891 PERSONAL HISTORY OF NICOTINE DEPENDENCE 05/30/2019 PATRICIA JARAMILLO Ot M23.203 DERANG OF UNSP MEDIAL MENISCUS DUE TO OL 05/30/2019 PATRICIA JARAMILLO Ot M94.8X8 OTHER SPECIFIED DISORDERS OF CARTIL[place], 05/30/2019 LEANDRO NELSON DO Ot 278.00 05/30/2019 LEANDRO NELSON DO Ot 496 05/30/2019 LEANDRO NELSON DO Ot 780.54 05/30/2019 LEANDRO NELSON DO Ot 799.02 05/30/2019 LEANDRO NELSON DO Ot 278.00 05/30/2019 LEANDRO NELSON DO Ot 496 05/30/2019 LEANDRO NELSON DO Ot 780.54 05/30/2019 LEANDRO NELSON DO Ot 799.02 05/31/2019 WAGNER GILMORE, MARILEE Espinosa Ot Z01.818 ENCOUNTER FOR OTHER PREPROCEDURAL EXAMIN 06/05/2019 WAGNER GILMORE, MARILEE Espinosa Ot Z01.818 ENCOUNTER FOR OTHER PREPROCEDURAL EXAMIN Procedures Code Description [place] [address] ROUTINE VENIPUNCTURE 01/05/2013 99099 CBC 01/05/2013 29970 CMP 01/05/2013 10217 LIPID PANEL 01/05/2013 5979694 GFR CALC (RESULT ONLY) 01/05/2013 33355 MAMMOGRAM, SCREENING 04/10/2013 33749 MAMMOGRAM DX, LEFT 04/11/2013 G0008 FLU ADMINISTRATION (MEDICARE ONLY) 08/16/2013 79289 INFLUENZA A & B (IN-HOUSE) 11/30/2013 J2930 SOLUMEDROL INJ 11/30/2013 24772 THERAPUTIC INJ SQ/IM 11/30/2013 65534 OXIMETRY 11/30/2013 95047 ROUTINE VENIPUNCTURE 03/14/2014 67696 CBC 03/14/2014 1624306 GFR CALC (RESULT ONLY) 03/14/2014 97385 CMP 03/14/2014 09760 LIPID PANEL 03/14/2014 85449 TSH 03/14/2014 00064 OXIMETRY 10/16/2014 54782 OXIMETRY 12/04/2014 Results Test Result Range Complete blood count (CBC) with automated white blood cell (WBC) differential - 10/02/16 00:50 Blood leukocytes automated count (number/volume) 7.9 10*3/uL 4.3-11.0 Blood erythrocytes automated count (number/volume) 4.72 10*6/uL 4.35-5.85 Venous blood hemoglobin measurement (mass/volume) 13.1 g/dL 11.5-16.0 Blood hematocrit (volume fraction) 41 % 35-52 Automated erythrocyte mean corpuscular volume 86 [foz_us] 80-99 Automated erythrocyte mean corpuscular hemoglobin (mass per erythrocyte) 28 pg 25-34 Automated erythrocyte mean corpuscular hemoglobin concentration measurement (mass/volume) 32 g/dL 32-36 Automated erythrocyte distribution width ratio 14.8 % 10.0- 14.5 Automated blood platelet count (count/volume) 226 10*3/uL 130-400 Automated blood platelet mean volume measurement 10.8 [foz_us] 7.4-10.4 Automated blood neutrophils/100 leukocytes 60 % 42-75 Automated blood lymphocytes/100 leukocytes 29 % 12-44 Blood monocytes/100 leukocytes 7 % 0-12 Automated blood eosinophils/100 leukocytes 3 % 0-10 Automated blood basophils/100 leukocytes 1 % 0-10 Blood neutrophils automated count (number/volume) 4.7 10*3 1.8-7.8 Blood lymphocytes automated count (number/volume) 2.3 10*3 1.0-4.0 Blood monocytes automated count (number/volume) 0.6 10*3 0.0- 1.0 Automated eosinophil count 0.3 10*3/uL 0.0-0.3 Automated blood basophil count (count/volume) 0.1 10*3/uL 0.0-0.1 Comprehensive metabolic panel - 10/02/16 00:50 Serum or plasma sodium measurement (moles/volume) 142 mmol/L 135-145 Serum or plasma potassium measurement (moles/volume) 3.8 mmol/L 3.6-5.0 Serum or plasma chloride measurement (moles/volume) 110 mmol/L 98-107 Carbon dioxide 20 mmol/L 21-32 Serum or plasma anion gap determination (moles/volume) 12 mmol/L 5-14 Serum or plasma urea nitrogen measurement (mass/volume) 13 mg/dL 7-18 Serum or plasma creatinine measurement (mass/volume) 0.93 mg/dL 0.60-1.30 Serum or plasma urea nitrogen/creatinine mass ratio 14 NRG Serum or plasma creatinine measurement with calculation of estimated glomerular filtration rate 60 NRG Serum or plasma glucose measurement (mass/volume) 124 mg/dL 70-105 Serum or plasma calcium measurement (mass/volume) 8.9 mg/dL 8.5-10.1 Serum or plasma total bilirubin measurement (mass/volume) 0.4 mg/dL 0.1-1.0 Serum or plasma alkaline phosphatase measurement (enzymatic activity/volume) 116 U/L 40-136 Serum or plasma aspartate aminotransferase measurement (enzymatic activity/volume) 11 U/L 5-34 Serum or plasma alanine aminotransferase measurement (enzymatic activity/volume) 8 U/L 0-55 Serum or plasma protein measurement (mass/volume) 6.3 g/dL 6.4-8.2 Serum or plasma albumin measurement (mass/volume) 3.8 g/dL 3.2-4.5 Magnesium - 10/02/16 00:50 Magnesium 2.2 mg/dL 1.8-2.4 Serum or plasma troponin i.cardiac measurement (mass/volume) - 10/02/16 00:50 Serum or plasma troponin i.cardiac measurement (mass/volume) < ng/mL <0.30 Fibrin D-dimer FEU measurement in platelet poor plasma (mass/volume) - 10/02/16 00:50 Fibrin D-dimer FEU measurement in platelet poor plasma (mass/volume) 0.52 ug/mL 0.00-0.49 Serum or plasma lithium measurement (moles/volume) - 10/02/16 00:50 BNP level 69.8 pg/mL <100.0 Sputum Gram stain - 10/21/16 07:00 GRAM STAIN SPUTUM GRAM STAIN. NRG Bacteria identification in bronchial specimen by aerobe culture - 10/21/16 07:00 Bacteria identification in bronchial specimen by aerobe culture NG NRG Mycobacterium species detection by organism specific culture - 10/21/16 07:00 DATE/TIME MICROSCOPIC 10-23-2016 NRG MICROSCOPIC NO ACID-FAST BACILLI FOUND NRG AFB CULTURE NO MYCOBACTERIA RECOVERED AFTER 6 WEEKS NRG DATE FINAL AFB CULTURE 12/16/16 11:35 NRG Fungus culture - 10/21/16 07:00 Fungus culture NG NRG Methicillin resistant Staphylococcus aureus (MRSA) screening culture - 11/03/16 11:33 Methicillin resistant Staphylococcus aureus (MRSA) screening culture NEG NRG Complete blood count (CBC) with automated white blood cell (WBC) differential - 11/24/16 07:52 Blood leukocytes automated count (number/volume) 12.7 10*3/uL 4.3-11.0 Blood erythrocytes automated count (number/volume) 5.37 10*6/uL 4.35-5.85 Venous blood hemoglobin measurement (mass/volume) 14.3 g/dL 11.5-16.0 Blood hematocrit (volume fraction) 45 % 35-52 Automated erythrocyte mean corpuscular volume 83 [foz_us] 80-99 Automated erythrocyte mean corpuscular hemoglobin (mass per erythrocyte) 27 pg 25-34 Automated erythrocyte mean corpuscular hemoglobin concentration measurement (mass/volume) 32 g/dL 32-36 Automated erythrocyte distribution width ratio 14.9 % 10.0- 14.5 Automated blood platelet count (count/volume) 410 10*3/uL 130-400 Automated blood platelet mean volume measurement 10.3 [foz_us] 7.4-10.4 Automated blood neutrophils/100 leukocytes 79 % 42-75 Automated blood lymphocytes/100 leukocytes 14 % 12-44 Blood monocytes/100 leukocytes 6 % 0-12 Automated blood eosinophils/100 leukocytes 1 % 0-10 Automated blood basophils/100 leukocytes 1 % 0-10 Blood neutrophils automated count (number/volume) 10.0 10*3 1.8-7.8 Blood lymphocytes automated count (number/volume) 1.8 10*3 1.0-4.0 Blood monocytes automated count (number/volume) 0.8 10*3 0.0- 1.0 Automated eosinophil count 0.1 10*3/uL 0.0-0.3 Automated blood basophil count (count/volume) 0.1 10*3/uL 0.0-0.1 Comprehensive metabolic panel - 11/24/16 07:52 Serum or plasma sodium measurement (moles/volume) 141 mmol/L 135-145 Serum or plasma potassium measurement (moles/volume) 4.4 mmol/L 3.6-5.0 Serum or plasma chloride measurement (moles/volume) 102 mmol/L 98-107 Carbon dioxide 28 mmol/L 21-32 Serum or plasma anion gap determination (moles/volume) 11 mmol/L 5-14 Serum or plasma urea nitrogen measurement (mass/volume) 18 mg/dL 7-18 Serum or plasma creatinine measurement (mass/volume) 1.11 mg/dL 0.60-1.30 Serum or plasma urea nitrogen/creatinine mass ratio 16 NRG Serum or plasma creatinine measurement with calculation of estimated glomerular filtration rate 49 NRG Serum or plasma glucose measurement (mass/volume) 144 mg/dL 70-105 Serum or plasma calcium measurement (mass/volume) 10.0 mg/dL 8.5-10.1 Serum or plasma total bilirubin measurement (mass/volume) 0.5 mg/dL 0.1-1.0 Serum or plasma alkaline phosphatase measurement (enzymatic activity/volume) 156 U/L 40-136 Serum or plasma aspartate aminotransferase measurement (enzymatic activity/volume) 19 U/L 5-34 Serum or plasma alanine aminotransferase measurement (enzymatic activity/volume) 15 U/L 0-55 Serum or plasma protein measurement (mass/volume) 7.6 g/dL 6.4-8.2 Serum or plasma albumin measurement (mass/volume) 4.2 g/dL 3.2-4.5 Magnesium - 11/24/16 07:52 Magnesium 2.3 mg/dL 1.8-2.4 Complete urinalysis with reflex to culture - 11/24/16 07:59 Urine color determination YELLOW NRG Urine clarity determination CLEAR NRG Urine pH measurement by test strip 6 5-9 Specific gravity of urine by test strip 1.020 1.016-1.022 Urine protein assay by test strip, semi-quantitative 2+ NEGATIVE Urine glucose detection by automated test strip NEGATIVE NEGATIVE Erythrocytes detection in urine sediment by light microscopy NEGATIVE NEGATIVE Urine ketones detection by automated test strip NEGATIVE NEGATIVE Urine nitrite detection by test strip NEGATIVE NEGATIVE Urine total bilirubin detection by test strip 1+ NEGATIVE Urine urobilinogen measurement by automated test strip (mass/volume) 4 mg/dL NORMAL Urine leukocyte esterase detection by dipstick 1+ NEGATIVE Automated urine sediment erythrocyte count by microscopy (number/high power field) NONE NRG Automated urine sediment leukocyte count by microscopy (number/high power field) [HPF] NRG Bacteria detection in urine sediment by light microscopy FEW NRG Squamous epithelial cells detection in urine sediment by light microscopy 2-5 NRG Crystals detection in urine sediment by light microscopy NONE NRG Casts detection in urine sediment by light microscopy NONE NRG Mucus detection in urine sediment by light microscopy SMALL NRG Complete urinalysis with reflex to culture NO NRG LIPID PANEL - 01/17/18 11:05 CHOLESTEROL, TOTAL 190 mg/dL <200 HDL CHOLESTEROL 71 mg/dL >50 TRIGLYCERIDES 166 mg/dL <150 LDL-CHOLESTEROL 93 mg/dL (calc) NRG CHOL/HDLC RATIO 2.7 (calc) <5.0 NON HDL CHOLESTEROL 119 mg/dL (calc) <130 CMP - 01/17/18 11:05 GLUCOSE 105 mg/dL 65-99 UREA NITROGEN (BUN) 13 mg/dL 7-25 CREATININE 0.86 mg/dL 0.60-0.93 eGFR NON-AFR. [place]ALEST[place] 68 mL/min/1.73m2 > OR=60 eGFR 79 mL/min/1.73m2 > OR=60 BUN/CREATININE RATIO NOT APPLICABLE (calc) 6-22 SODIUM 142 mmol/L 135-146 POTASSIUM 4.3 mmol/L 3.5-5.3 CHLORIDE 106 mmol/L 98-110 CARBON DIOXIDE 26 mmol/L 20-31 CALCIUM 9.2 mg/dL 8.6-10.4 PROTEIN, TOTAL 6.5 g/dL 6.1-8.1 ALBUMIN 4.1 g/dL 3.6-5.1 GLOBULIN 2.4 g/dL (calc) 1.9-3.7 ALBUMIN/GLOBULIN RATIO 1.7 (calc) 1.0-2.5 BILIRUBIN, TOTAL 0.5 mg/dL 0.2-1.2 ALKALINE PHOSPHATASE 99 U/L 33-130 AST 13 U/L 10-35 ALT 13 U/L 6- PDM - TRAMADOL - 07/13/18 10:02 Prescribed Drug 1 Tramadol NRG COMMENT NRG Desmethyltramadol 548 ng/mL <100 medMATCH Desmethyltram CONSISTENT NRG Tramadol 7925 ng/mL <100 medMATCH Tramadol CONSISTENT NRG Prescribed Drug 3 Tramadol NRG Methicillin resistant Staphylococcus aureus (MRSA) screening culture - 05/30/19 12:20 Methicillin resistant Staphylococcus aureus (MRSA) screening culture NEG NRG Encounters ACCT No. Visit Date/Time Discharge Status Pt. Type Provider Facility Loc./Unit Complaint [id number] 11/29/2014 16:21:00 11/29/2014 23:59:59 CLS Outpatient PATRICIA JARAMILLO APRN [id number] 10/16/2014 14:41:00 10/16/2014 23:59:59 CLS Outpatient PATRICIA JARAMILLO APRN [id number] 03/14/2014 08:01:00 03/14/2014 23:59:59 CLS Outpatient PATRICIA JARAMILLO APRN [id number] 11/30/2013 16:44:00 11/30/2013 23:59:59 CLS Outpatient PATRICIA JARAMILLO APRN [id number] 08/16/2013 15:20:00 08/16/2013 23:59:59 CLS Outpatient PATRICIA JARAMILLO APRN [id number] 01/05/2013 09:38:00 01/05/2013 23:59:59 CLS Outpatient PATRICIA JARAMILLO APRN [id number] 10/15/2011 16:33:00 10/15/2011 23:59:59 CLS Outpatient [id number] 10/15/2011 16:33:00 10/15/2011 23:59:59 CLS Outpatient PATRICIA JARAMILLO APRN [id number] 04/06/2013 16:26:00 Document Registration [id number] 01/05/2013 09:38:00 Document Registration [id number] 05/30/2019 11:16:00 05/30/2019 12:50:00 DIS Outpatient MARILEE EDWARD MD [facility] PREOP RIGHT KNEE MEDIAL MENISCUS TEAR [id number] 05/12/2019 14:20:00 05/12/2019 23:59:59 CLS Preadmit KEAGAN CARTAGENA ASSEMBLY MACHINE FEEDER [facility] RAD HX OF NICOTINE DEP [id number] 04/25/2019 14:48:00 04/25/2019 23:59:59 CLS Preadmit PATRICIA JARAMILLO CHANNEL PROCESS SUPERVISOR [facility] REHAB R MEDIAL KNEE PAIN [id number] 04/25/2019 10:50:00 04/25/2019 23:59:59 CLS Outpatient KEAGAN CARTAGENA ASSEMBLY MACHINE FEEDER [facility] RAD COPD [id number] 04/11/2019 09:06:00 04/11/2019 23:59:59 CLS Outpatient PATRICIA JARAMILLO CHANNEL PROCESS SUPERVISOR [facility] RAD RIGHT MEDIAL KNEE PAIN [id number] 04/20/2018 09:45:00 04/20/2018 23:59:59 CLS Outpatient KEAGAN CARTAGENA ASSEMBLY MACHINE FEEDER [facility] RAD SCREENING [id number] 04/15/2017 13:15:00 04/15/2017 23:59:59 CLS Outpatient LEANDRO NELSON DO [facility] RAD COPD,BENNIE ON CPAP,SOB DYSPNEA [id number] 11/24/2016 07:38:00 11/24/2016 09:09:00 DIS Emergency SATHISH MURPHY MD [facility] ER VOMITING [id number] 11/05/2016 07:45:00 11/05/2016 18:00:00 DIS Outpatient STEVEN FALCON MD [facility] SDC GALLSTONES [id number] 11/03/2016 11:16:00 11/03/2016 11:38:00 DIS Outpatient STEVEN FALCON MD [facility] PREOP GALLSTONES [id number] 10/28/2016 09:10:00 10/28/2016 23:59:59 CLS Outpatient LEANDRO NELSON DO [facility] RAD SOB,COPD [id number] 10/21/2016 05:48:00 10/21/2016 08:45:00 DIS Outpatient LEANDRO NELSON DO [facility] SDC BRONCHIAL LESION [id number] 10/20/2016 08:45:00 10/20/2016 23:59:59 CLS Outpatient LEANDRO NELSON DO [facility] PREOP BRONCHIAL LESION [id number] 10/02/2016 00:28:00 10/02/2016 03:28:00 DIS Emergency VIET THOMAS DO [place]ron [facility] ER SOB [id number] 03/02/2016 09:46:00 03/02/2016 23:59:59 CLS Outpatient PATRICIA JARAMILLO [facility] RAD SHOULDER PAIN [id number] 02/22/2016 09:06:00 02/22/2016 23:59:59 CLS Outpatient MARY ALCANTARA APRN [facility] RAD R SHOULDER X-RAY [id number] 08/15/2015 15:00:00 08/15/2015 23:59:59 CLS Preadmit LEANDRO NELSON DO [facility] PULM COPD [id number] 07/25/2015 08:00:00 08/14/2015 00:01:00 DIS Outpatient LEANDRO NELSON DO [facility] PULM COPD [id number] 07/04/2015 08:00:00 07/08/2015 00:01:00 DIS Outpatient LEANDRO NELSON DO [facility] PULM COPD [id number] 02/14/2015 19:30:00 02/15/2015 06:35:00 DIS Outpatient LEANDRO NELSON DO [facility] SLEEP NOCTURNAL HYPOXIA [id number] 12/26/2014 09:41:00 12/26/2014 23:59:59 CLS Outpatient LEANDRO NELSON DO [facility] RT COPD [id number] 05/08/2013 13:53:00 05/08/2013 23:59:59 CLS Outpatient PATRICIA JARAMILLO [facility] RAD ABN MAMMO [id number] 04/12/2013 15:29:00 04/12/2013 23:59:59 CLS Outpatient PATRICIA JARAMILLO [facility] RAD SCREENING [id number] 04/24/2020 08:30:00 PEN Preadmit KEAGAN CARTAGENA APRN [facility] RT COPD [id number] 06/07/2019 08:30:00 PEN Preadmit WAGNER GILMORE, MARILEE Espinosa [facility] RIGHT KNEE MEDIAL MENISCUS TEAR [id number] 02/13/2016 12:31:00 Document Registration [id number] 08/02/2010 09:44:00 Document Registration [id number] 03/29/2019 08:20:00 03/29/2019 23:59:59 CLS Outpatient PATRICIA JARAMILLO APRN [facility], [place] [id number] 07/13/2018 09:20:00 Document Registration [id number] 01/17/2018 10:00:00 Document Registration
--- NOTE | 2019-06-07 09:43 | Progress Note-Post Operative ---
Post-Operative Progess Note Surgeon (s)/Flour Worker (s) Surgeon MARILEE EDWARD MD Flour Worker: Stephane Helms Pre-Operative Diagnosis right knee medial meniscus tear and chondromalacia Post-Operative Diagnosis right knee medial meniscus tear and chondromalacia of the medial femoral condyle, medial tibial plateau, lateral tibial plateau and patella Procedure & Operative Findings Date of Procedure 06/07/19 Procedure Performed/Findings right knee arthroscopic partial medial meniscectomy, and chondroplasty of the medial femoral condyle and medial and lateral tibial plateaus Anesthesia Type GETA Estimated Blood Loss Estimated blood loss (mL): minimal Specimens/Packing Specimens Removed none Packing: none MARILEE EDWARD MD Jun 07, 2019 09:43
[2019-06-07] MEDS ORDERED: morphine INJ 10 MG/ML 1ML (SYR OR VIAL) IVP ONE (09:45)
[2019-06-07] MEDS ORDERED: ONDANSETRON 4 MG/2 ML (SDV) Z0FRAN IVP PRN (09:45)
[2019-06-07] MEDS ORDERED: HYDR-3063 PO (11:18)
--- NOTE | 2019-06-07 12:20 | Anesthesia-General Post-Op ---
General Patient Condition Mental Status/LOC: Same as Preop Cardiovascular: Satisfactory Nausea/Vomiting: Absent Respiratory: Satisfactory Pain: Controlled Complications: Absent Post Op Complications Complications None Follow Up Care/Instructions Patient Instructions None needed. Anesthesia/Patient Condition Patient Condition Patient is doing well, no complaints, stable vital signs, no apparent adverse anesthesia problems. No complications reported per nursing. CINDY JOYA CRNA Jun 07, 2019 12:20
--- NOTE | 2019-06-07 12:32 | Physical Therapy Ortho Eval ---
PT Orthopedic Evaluation Type of Surgery Knee Scope (right) medial meniscus repair Prior Level of Function Current Living Status: Other Family Locomotion (Upon Admit): Independent Established Durable Medical Eq: Front Wheeled Walker Subjective Subjective Agrees to PT. Reports she will have assist at home as needed. Entry Into Home: Stairs Without Railing Steps Into Home: 1 Motor Control Motor Control: Motor Control WNL ROM ROM: WFL Strength Strength: WFL Transfer Transfers (B, C, W/C) (FIM): 5 (7 post treatment) Gait Gait Assistive Device: FWW Right Lower Extremity: Right Weight Bearing Status RLE: Weight Bearing/Tolerated Left Lower Extremity: Left Weight Bearing Status LLE: Full Weight Bearing Gait (FIM): 5 (6 post treatment) Summary/Comments safe steady gait with step through andheel toe pattern; no LOB noted. Up/down a step with FWW with skilled cues for sequencing; demonstrated correct performance. Treatment Rendered Treatment: Therapeutic Exercises, Gait Train, Step Train Exercise Instruction: Quad Sets, Straight Leg Raise, Heel Slides Assessment/Goals Goal Time Frame: 1 Visit Understands HEP: Yes Safe Ambulation: Yes Plan Treatment Plan: Discharge PT/Family Agrees to Plan: Yes Time Time In: 1120 Time Out: 1140 Total Billed Treatment Time: 20 Billed Treatment Time visit EVL 20 DANYEL DAMON PT Jun 07, 2019 12:32
--- NOTE | 2019-06-07 13:16 | OPERATIVE REPORT ---
DATE OF SERVICE: 06/07/2019 PREOPERATIVE DIAGNOSES: 1. Right medial meniscus tear. 2. Right knee chondromalacia of the medial femoral condyle. 3. 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 4. Right knee chondromalacia of the patella. POSTOPERATIVE DIAGNOSES: 1. Right medial meniscus tear. 2. Right knee chondromalacia of the medial femoral condyle. 3. 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 4. Right knee chondromalacia of the patella. 5. Right knee chondromalacia of the lateral tibial plateau. PROCEDURES: 1. Right knee arthroscopic partial medial meniscectomy. 2. Right knee arthroscopic chondroplasty of the medial femoral condyle. 3. Right knee arthroscopic chondroplasty of the medial tibial plateau. 4. Right knee arthroscopic chondroplasty of the patella. 5. Right knee arthroscopic chondroplasty of the lateral tibial plateau. SURGEON: Mickey Edward MD INDUSTRIAL EDUCATION TEACHER: Stephane Helms, who assisted throughout the procedure and closed the incisions. ANESTHESIA: General endotracheal by Dr. Larsen. TOURNIQUET TIME: Not applicable. ESTIMATED BLOOD LOSS: Minimal. DRAINS: None. COMPLICATIONS: None. POSTOPERATIVE PLAN: Routine arthroscopy protocol. The patient was transported to the recovery room awake and in stable condition. STATEMENT OF MEDICAL NECESSITY: The patient is a 74-year-old female with complaints of right medial knee pain, catching, locking and swelling. She had an MRI, which revealed evidence of a medial meniscus tear. In addition, she had chondral changes in her medial and patellofemoral compartments. Due to functional impairment and failure to improve with conservative measures, the patient elected to proceed with surgical intervention. Examination under anesthesia revealed range of motion 0/0/140 with negative Oscar, negative anterior and posterior drawer. No varus valgus laxity and negative pivot shift. ARTHROSCOPIC FINDINGS: The patella demonstrated grade II chondral flap centrally and 10 x 12 area of the trochlea demonstrated no gross chondral abnormalities. Medial and lateral gutters were clear. The ACL and PCL were intact. The lateral compartment demonstrated grade II chondral flap in the central portion of the tibial plateau in an 8 x 8 area. The medial compartment demonstrated a horizontal cleavage tear of the posterior horn of the medial meniscus involving approximately one-third of the posterior horn. In addition, there were grade II chondral flaps in adjacent areas of the femoral condyle and tibial plateau in 15 x 10 area. PROCEDURE IN DETAIL: After risks and benefits of procedure were discussed and questions were answered and informed consent was signed and placed on chart, the operative site was confirmed in the preoperative holding area initialed by the surgeon. The patient was then transported to the operating room. After adequate levels of general endotracheal anesthetic were obtained, a timeout was called, confirming the operative site and examination under anesthesia was performed with above findings noted. The right lower extremity was prepped and draped in the usual sterile fashion. The knee joint was injected with 60 mL fluid and standard inferolateral portal was placed with the arthroscope under direct visualization. Inferior medial portal was created. The menisci, cruciates were carefully probed with the above findings noted. The unstable chondral flaps on the patella were debrided with a shaver back to a stable edge. Scope was redirected into the lateral compartment of the knee. The unstable chondral flaps on the lateral tibial plateau were debrided with a shaver back to a stable edge. Scope was then redirected into the medial compartment where the unstable chondral flaps of the medial femoral condyle and medial tibial plateau were debrided with a shaver back to a stable edge and the posterior horn of the medial meniscus was debrided with a biter and a shaver removing approximately one-third of the posterior horn. This was carefully probed with no further tearing or instability noted. The knee was copiously irrigated and port sites were closed with 4-0 nylon in simple interrupted fashion. The knee was injected with Duramorph. Portal sites were infiltrated with plain Marcaine and soft dressing was applied and the patient was transported to the recovery room awake and in stable condition. Job ID: [id number] DocumentID: [id number] Dictated Date: 06/07/2019 09:47:20 Animal Nursery Worker Date: 06/07/2019 13:16:06 Dictated By: MICKEY EDWARD MD
== END 2019-06-07 12:05 | disposition home or self-care (01) ==
LOC: SDC 06:32
PROVIDERS: ATTEND Orthopaedic Surgery
DX: S83.241A Other tear of medial meniscus, current injury, right knee, initial encounter (principal); M22.41 Chondromalacia patellae, right knee; G47.33 Obstructive sleep apnea (adult) (pediatric); I10 Essential (primary) hypertension; D64.9 Anemia, unspecified; K21.9 Gastro-esophageal reflux disease without esophagitis; J43.9 Emphysema, unspecified; G89.29 Other chronic pain; M54.9 Dorsalgia, unspecified; M19.90 Unspecified osteoarthritis, unspecified site; E66.01 Morbid (severe) obesity due to excess calories; Z68.41 Body mass index [BMI] 40.0-44.9, adult; Z90.49 Acquired absence of other specified parts of digestive tract; Z82.5 Family history of asthma and other chronic lower respiratory diseases; Z99.81 Dependence on supplemental oxygen; Z79.899 Other long term (current) drug therapy; Z88.0 Allergy status to penicillin; Z88.8 Allergy status to other drugs, medicaments and biological substances; Z87.891 Personal history of nicotine dependence

== ENCOUNTER 2020-04-05 09:11 | Outpatient (RCR) | payer MEDICARE, OTHER ==
[~2020-04-05] VITALS: Ht 167.7 cm; Wt 120.9 kg
[~2020-04-05 09:11] MED LIST changes: +ACHD5005 PO; +HYDR-3063 PO; -HYDR-3812 PO; +HYDR-83 PO; +LISI-556 PO; -OMEP20CA13; -OMEP20CA13 PO; +OMEP20CA18; +OMEP20CA18 PO
== END 2020-04-05 14:48 | disposition home or self-care (01) ==
LOC: PREOP 09:11
PROVIDERS: ATTEND Surgery
DX: Z01.818 Encounter for other preprocedural examination (principal); Z01.812 Encounter for preprocedural laboratory examination; Z11.59 Encounter for screening for other viral diseases; K43.2 Incisional hernia without obstruction or gangrene
CPT/HCPCS: 87635

== ENCOUNTER 2020-04-10 08:29 | Inpatient (IN) | payer MEDICARE, OTHER ==
[~2020-04-10] VITALS: Ht 167.7 cm; Wt 120.9 kg
[2020-04-10] VITALS (10 sets, daily range): BP systolic 106–154; BP diastolic 59–93
[2020-04-10] MEDS ORDERED: BUP/EPI 0.5% 1:200,000 (SENSORCAINE) 30 ML VIAL ONE (08:44)
[2020-04-10] MEDS ORDERED: CLINDAMYCIN 600 MG/50 ML IVPB 50 ML IV ONE (08:45)
--- NOTE | 2020-04-10 08:57 | Progress Note-Pre Operative ---
Pre-Operative Progress Note H&P Reviewed The H&P was reviewed, patient examined and no changes noted. Time Seen by Provider: 08:55 Date H&P Reviewed: April 10, 2020 Time H&P Reviewed: 08:55 Pre-Operative Diagnosis: Ventral/Incisional Hernia - incarcerated ALEXA GASTON DO April 10, 2020 08:57
--- OUTSIDE RECORDS SUMMARY | 2020-04-10 09:01 | XMS REPORT ---
Author Author [employer] manager diabetes [facility] Address [address] [address] Care Team Providers Care Destination Sign Repairer Name Role Phone ISAIAS VEGA Unavailable MIKEY GONZALEZ Unavailable CLINT, PATRICIA Unavailable Unavailable MARY ALCANTARA Unavailable Unavailable [facility] Unavailable [phone] CLINT, PATRICIA Unavailable CLINT, PATRICIA Unavailable CLINT, PATRICIA Unavailable CLINT, PATRICIA Unavailable CLINT, PATRICIA Unavailable CLINT, PATRICIA Unavailable CLINT, PATRICIA Unavailable CLINT, PATRICIA Unavailable CLINT, PATRICIA Unavailable CLINT, PATRICIA Unavailable CLINT, PATRICIA Unavailable CLINT, PATRICIA Unavailable SATHISH MURPHY MD Unavailable Unavailable CLINT, PATRICIA Unavailable CLINT, PATRICIA Unavailable CLINT, PATRICIA PRINCIPAL STATISTICAL SCIENTIST Unavailable Unavailable LEANDRO NELSON DO Unavailable Unavailable MARY ALCANTARA APRN Unavailable Unavailable CLINT, PATRICIA Unavailable CLINT, PATRICIA Unavailable CLINT, PATRICIA Unavailable STEVEN FALCON MD Unavailable Unavailable VIET THOMAS DO Unavailable Unavailable KEAGAN CARTAGENA FAMILY PARTNER Unavailable Unavailable CLINT, PATRICIA Unavailable CLINT, PATRICIA Unavailable CLINT, PATRICIA Unavailable CLINT, PATRICIA Unavailable CLINT, PATRICIA Unavailable CLINT, PATRICIA Unavailable CLINT, PATRICIA Unavailable CLINT, PATRICIA Unavailable CLINT, PATRICIA Unavailable Migration, Doctor Unavailable Unavailable Migration, Doctor Unavailable Unavailable Migration, Doctor Unavailable Unavailable Migration, Doctor Unavailable Unavailable CLINT, PATRICIA S Unavailable Unavailable EZEKIEL GILMORE, STEVEN Unavailable Unavailable LEANDRO NELSON DO Unavailable Unavailable KEAGAN CARTAGENA FAMILY PARTNER Unavailable Unavailable CLINT, PATRICIA PRINCIPAL STATISTICAL SCIENTIST Unavailable Unavailable VIET THOMAS DO Unavailable Unavailable KATHERINE GILMORE, SATHISH Ackerman Unavailable Unavailable MARY ALCANTARA FAMILY PARTNER Unavailable Unavailable CLINT, PATRICIA Unavailable [facility] PCP [phone] WAGNER GILMORE, MARILEE Espinosa Unavailable Unavailable CLINT, PATRICIA Unavailable CLINT, PATRICIA Unavailable CLINT, PATRICIA Unavailable CLINT, PATRICIA Unavailable CLINT, PATRICIA Unavailable CLINT, PATRICIA Unavailable CLINT, PATRICIA Unavailable CLINT, PATRICIA Unavailable CLINT, PATRICIA Unavailable CLINT, PATRICIA Unavailable CLINT, PATRICIA Unavailable CLINT, PATRICIA Unavailable CLINT, PATRICIA Unavailable CLINT, PATRICIA Unavailable CLINT, PATRICIA Unavailable KEAGAN CARTAGENA APRN Unavailable Unavailable ALEXA GASTON DO Unavailable Unavailable Unavailable Unavailable Unavailable Unavailable Unavailable Unavailable Unavailable Unavailable Unavailable Unavailable Allergies Normalized Allergy Reported Date of Reaction(s) Care Provider Facility Allergy Type classification allergen Allergy Onset Drug Allergy Corticosteroid fluticasone 05-30-2019 - LEANDRO BETANCOURT , [facility] Via (21 sources.) s Translations: fluticasone DO risti Translations: [ fluticasone ([id number]) Hospital - [ Allergy to ([id number])] [place] Substance] (26400) Drug Allergy salmeterol salmeterol 05-30-2019 - LEANDRO BETANCOURT , [facility] Via (21 sources.) Translations: Salmeterol DO Alivia Translations: [ Salmeterol] Hospital - [ Allergy to [place] Substance] (67021) Medications Current Medications Medication Ingredient Drug Dose Dates Status Sig Sig Care Class(es) (Normalized) (Original) Provid er azithromyci Azithromyci Macrolide 500 mg 11-30-19 Active take 2 Zithromax no n 250 mg n Antimicrobi 14 tablets by Z-Hossein 250 mg name oral tablet Translation al mouth once 2 tablet by (1 source.) s: [ daily, then Oral route 1 Zithromax take 1 time per day Z-Hossein 250 tablet by for 1 days mg] mouth once then take 1 daily, then tab daily on take 2-5 days 2-5 16 tablets by Nov, 2013 mouth Active no Calcium + no Active no Calcium + D3 no information D3 600-200 information information 600-200 nam e (1 source.) MG-UNIT MG-UNIT Orally Once a day (may take up to BID) 1 tablet with a meal Active calcium calcium Vitamin D Active no Calcium + D3 no carbonate carbonate / information 600-200 name 1500 mg / cholecalcif MG-UNIT cholecalcif mike Orally Once mike 200 Translation a day (march unt oral s: [ take up to tablet (2 Calcium + BID) 1 sources.) D3 600-200 tablet with MG-UNIT] a meal Active no Incruse no 62.5 Active take 62.5 ug Incruse no information Ellipta information ug/{ac by Ellipta 62.5 name (1 source.) 62.5 tuate} inhalation MCG/INH MCG/INH once daily Inhalation Once a day 1 puff 24h Active no Ventolin no 2 05-09-20 Active take 2 Ventolin HF A no information HFA 108 (90 information puff(s 18 puff(s) by 108 (90 name (1 source.) Base) ) inhalation Base) MCG/ACT every four MCG/ACT to six hours Inhalation as needed every 4-6 hours as needed 2 puffs as needed Apr, 30 days Active no Ventolin no 2 08-16-20 Active take 2 Ventolin HF A no information HFA 90 information puff(s 13 puff(s) by 90 n kyler (1 source.) mcg/actuati ) inhalation mcg/actuatio on every six n inhale 2 hours as puff by needed Inhalation route as needed every 6 hours Use prn shortness of breath Aug, Active Completed/Discontinued Medications Medication Ingredient Drug Dose Dates Status Sig Sig Care Class(es) (Normalized) (Original) Provid er no Acetaminoph no 08-02-20 Complete no Acetaminophe Ellis information en/Hydrocod information 10 - d information n/ Hydrocodon R (1 source.) one Bitart 10-02-20 e Bitart Seglie (Hydrocodon 16 (Hydrocodone (no e-Apap -Apap 10-325 phone) 10-325 Tablet) 1 Tablet) 1 Each Tablet, Each 1 Each Oral Tablet, 1 Q6hr Prn Each Oral 08/02/10 Discontinued no Albuterol no 1 Complete take 1 Albuterol (no information Sulfate information puff(s d puff(s) by Sulfate phone) (1 source.) (Proair ) inhalation (Proair Hfa) Hfa) 1 Puff every four 1 Puff Puff Puff hours as 2 Puff needed RESPIRATORY (INHALATION) Every 4HRS as needed for Shortness Of Breath 1 PUFF = 90 MCG no Fluticasone no Complete take 1 dose Fluticasone/ (no information /Vilanterol information d by Vilanter ol phone) (1 source.) (Breo inhalation (Breo Ellipta once daily Ellipta 100-25 Mcg 100-25 Mcg Inh) 1 Each Inh) 1 Each Blst.w.dev Blst.w.dev 1 Puff RESPIRATORY (INHALATION) Daily no Omeprazole no 10-02-20 Complete no Omeprazole (no information (Prilosec) information 16 d information (Pr ilosec) phone) (1 source.) 20 Mg 20 Mg Capsule.dr, Capsule.dr, 20 Mg Oral 20 Mg Oral Daily Discontinued ondansetron Ondansetron Serotonin-3 4 mg 11-24-19 Complete no Ondansetron Timoth 4 mg Receptor 17 - d information (Ondansetron y D disintegrat Antagonist 05-30-20 Odt) 4 Mg Stebbi ing oral 19 Tab.rapdis, ns (no tablet (1 4 Mg Oral phone) source.) Every 6 Hours as needed for Nausea/Vomit ing 11/24/16 Discontinued no Salmeterol no 1 10-02-20 Complete take 1 Salmete rol (no information Xinafoate/F information puff(s 16 d puff(s) by Xinafoate/Fl phone) (1 source.) luticasone ) inhalation uticasone (Advair 250 once daily (Advair 250 Mcg/50 Mcg Mcg/50 Mcg 60's) 1 60's) 1 Disk Disk Inhp, Inhp, 1 Puff 1 Puff Respiratory( Respiratory Inhalation) (Inhalation Daily ) Discontinued no Tiotropium no 10-02-20 Complete no Tiotropium (no information Greer information 16 d information Bromid e phone) (1 source.) (Spiriva) 1 (Spiriva) 1 Inh Aerp, 0 Inh Aerp, 0 Inh Inh Respiratory Respiratory (Inhalation (Inhalation) ) Daily Discontinued no Umeclidiniu no 1 Complete take 1 Umeclidinium (n o information m Greer information puff(s d puff(s) by Bromi de phone) (1 source.) (Incruse ) inhalation (Incruse Ellipta) once daily Ellipta) 62.5 Mcg 62.5 Mcg Blst.w.dev Blst.w.dev 1 Puff RESPIRATORY (INHALATION) Daily Problems Active Problems Problem Normalized Date Last Normalized Normalized Provider Fa cility Classification Problem(s) Recorded Problem Problem Sta tus Duration Allergic Allergy status 04-03-2020 - Episodic Active MARILEE RAMOS [facility] Via reactions (8 to penicillin , MD Bunch sources.) Translations: Hospital - [ ALLERGY [place] STATUS TO OTH (17641) DRUG/MEDS/BIOL SUB] Deficiency and Anemia, 04-03-2020 - Episodic Active MARILEE RAMOS [facility] Via other anemia unspecified , [facility] (4 sources.) Hospital - [place] (90631) Coronary Atheroscleroti Chronic Active KEAGAN [facility] Via atherosclerosi c heart OSIEL Alivia s and other disease of Hospital - heart disease gambell [place] (4 sources.) coronary (36627) artery without angina pectoris Residual Breast cancer Episodic Active PATRICIA CLINT Com munity codes; screening [facility] [facility] unclassified declined of [facility] (10 sources.) Translations: [place] (55209) [ Mammogram declined] Biliary tract Calculus of 04-03-2020 - Episodic Active VIET THOMAS [facility] Via disease (20 gallbladder , DO Alivia sources.) without Hospital - cholecystitis [place] without (85645) obstruction Translations: [ CALCULUS OF GALLBLADDER W CHRONIC CHOLEC] Chronic Chronic no information Active [facility] obstructive obstructive [facility]HEL [place] pulmonary pulmonary 79244 Hospital disease and disease and (36918) bronchiectasis bronchiectasis (1 source.) Residual Chronic pain Episodic Active PATRICIA CLINT Comm unity codes; Translations: [address]26 [facility] unclassified [ Other of [facility] (10 sources.) chronic pain] [place] (68930) Respiratory Dependence 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-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 Active MARILEE EDWARD [facility] Via failure; supplemental , [facility] insufficiency; oxygen Hospital - arrest (adult) [place] (4 sources.) (37033) 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-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 Active PATRICIAALBA MCCARTHYNAN [facility] Via disorders and unspecified [place] dislocations; medial Hospital - trauma-related meniscus due [place] (9 sources.) to old tear or (26850) injury, right knee Translations: [ CHONDROMALACIA PATELLAE, RIGHT KNEE] Residual Family history 04-03-2020 - Episodic Active MARILEE Lilli CHARANBRODERICK [facility] Via codes; of asthma and , [facility] unclassified other chronic Hospital - (4 sources.) lower [place] respiratory (29631) diseases Residual Hypersomnia, 04-03-2020 - Episodic Active LEANDRO LITTLE Y , Not Available codes; unspecified DO (30408) unclassified (17 sources.) Other lower Hypoxemia 04-03-2020 - Episodic Active LEANDRO LITTLE Y , Not Available respiratory DO (35393) disease (17 sources.) 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 LEANDRO LESLIE , [facility] Via codes; sleep related DO Alivia unclassified nonobstructive Hospital - (17 sources.) 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 (07882) n Translations: [ OBSTRUCTIVE SLEEP APNEA (ADULT) (PEDIATR] Nausea and Nausea with 04-03-2020 - Episodic Active SATHISH [facility] Via vomiting (16 vomiting, MD Alivia MURPHY sources.) unspecified Hospital - [place] (30581) Substance-rela Nicotine Chronic Active KEAGAN [facility] Via sunshine disorders dependenceOSIEL (5 sources.) unspecified, Hospital - in remission [place] (89497) Other Obesity, 04-03-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 Active LEANDRO NELSON , Not Available nutritional; unspecified DO (23434) endocrine; and metabolic disorders (17 sources.) Residual Obstructive 04-03-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 Active LEANDRO NELSON , [facility] Via codes; sleep apnea DO Alivia unclassified (adult) Hospital - (20 sources.) (pediatric) [place] Translations: (37038) [ - Obstructive sleep apnea syndrome G47.33] Residual Obstructive Chronic Active LEANDRO NELSON , Not A vailable codes; sleep apnea DO (34741) unclassified (adult)(pediat (5 sources.) magy) Residual Obstructive Chronic Active PATRICIA CLINT Amarou nitlatha codes; sleep apnea [address] [place] [address] unclassified syndrome of [facility] (15 sources.) Translations: [place] (75896) [ Obstructive sleep apnea syndrome] Other Other long 04-03-2020 - Episodic Active MARILEE WOLFE A [facility] Via aftercare (4 term (current) MD [facility]unch sources.) drug therapy [facility] (37259) Other lower Other 04-03-2020 - Episodic Active VIET MOTLEY IN [facility] Via respiratory nonspecific , DO Alivia disease (13 abnormal Hospital - sources.) finding of [place] lung field (87610) Other bone Other Episodic Active PATRICIA CLINT [facility] Via disease and specified Alivia musculoskeleta disorders of Hospital [facility] deformities [facility] (5 sources.) other site (36627) Residual Other no information Active PATRICIA JARAMILLO Com munity codes; specified [address] [place] [address] unclassified postprocedural of [facility] (5 sources.) [facility] (02857) Translations: [ - Status post arthroscopic knee surgery Z98.890] Residual Other Episodic Active PATRICIA CLINT Communit y codes; specified [facility] unclassified postprocedural of [facility] (10 sources.) [facility] () Translations: [ - Status post arthroscopic knee surgery Z98.890] Joint Other tear of 04-03-2020 - Episodic Active MARILEE GOODMAN [facility] Via disorders and medial MD [facility] dislocations; meniscus, Hospital - trauma-related current [place] (4 sources.) injury, right (11045) knee, initial encounter Other Pain in right 04-03-2020 - Episodic Active SHEEARLE HUF FMAN Not Available non-traumatic shoulder () joint Translations: disorders (20 [ - Right sources.) shoulder pain M25.511, - Right shoulder pain M25.511] Other lower Shortness of 04-03-2020 - Episodic Active CARINA E Not Available respiratory breath OSIEL () disease (22 sources.) Osteoarthritis Unspecified 04-03-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 Active NEEMA EDWARD [facility] Via (4 sources.) osteoarthritis , [facility] , unspecified Hospital - site [place] (45038) Other lower Wheezing Episodic Active PATRICIA CLINT Commun ity respiratory Translations: [facility] disease (20 [ - Wheezing of [place] sources.) R06.2, - [place] () Wheezing R06.2] Viral Zoster without Episodic Active PATRICIA CLINT [facility] infection (3 complications [facility] [facility] sources.) Translations: of [facility] [ - Herpes [place] () zoster without complication B02.9] Unclassified no information no information Active [facility] [place] Via (1 source.) [place] ([address]) Past or Other Problems Problem Normalized Date Last Normalized Normalized Provider Fa cility Classification Problem(s) Recorded Problem Problem Sta tus Duration Unclassified no information no information no information CHRISTINA WAGNER Via (6 sources.) DO [facility] (48558) Unclassified no information no information no information CHRISTINA WAGNER Via (6 sources.) DO [facility] (11244) Unclassified no information no information no information LEANDRO NELSON [facility] Via (6 sources.) DO [facility] (98581) Unclassified no information no information no information LEANDRO NELSON [facility] Via (6 sources.) DO [facility] (28322) Procedures Procedure Normalized Procedure Procedure Result Performer Facility Date 06-07-2019 Arthroscopic partial no information MARILEE WOLFE [facility] [place] [facility]85067[facility] 03-14-2014 Assay of thyroid no information no name [facility] stimulating hormone [facility] (02034) 03-14-2014 Blood count complete no information no name [facility] auto&auto difrntl wbc [facility] (51938) 01-17-2018 Collection venous no information no name [facility] blood venipuncture [facility] (61017) 03-14-2014 Collection venous no information no name [facility] blood venipuncture [facility] (36912) 03-14-2014 Comprehensive no information no name [facility] Health metabolic panel [facility] (38495) 05-04-2018 Fall risk assessment no information no name [facility] docd [facility] (68435) 10-10-2018 [facility] visit, estab pt no information no name [facility] (86249) 07-13-2018 FQHC visit, estab pt no information no name [facility] (03052) 01-17-2018 [facility]QHC visit, estab pt no information no name [facility] (24234) 05-04-2018 FQHC visit, IPPE or no information no name [facility] AWV [facility] (74314) 11-30-2013 Iaadiadoo influenza no information no name [facility] (64361) 07-13-2018 LAB NOT BILLED BY no information no [facility] (30357) 01-17-2018 LAB NOT BILLED BY no information no name [facility] (25391) 03-14-2014 Lipid panel no information no name [facility] (68665) 11-30-2013 Methylprednisolone no information no name [facility] injection [facility] (55121) 11-29-2014 Noninvasive ear/pulse no information no name [facility] oximetry single deter [facility] (86872) 10-16-2014 Noninvasive ear/pulse no information no name [facility] oximetry single deter [facility] (53600) 11-30-2013 Noninvasive ear/pulse no information no name [facility] oximetry single deter [facility] (79122) 05-04-2018 Pt tobacco screen rcvd no information no name [facility] tlk [facility] (24912) 11-30-2013 Therapeutic no information no name [facility] prophylactic/dx [facility] subq/[facility] (16538) Immunizations Normalized Immunization Date Notes Care Provider Facili ty Immunization influenza, seasonal, 09-18-2019 no information no name [facility] injectable [facility] (45459) influenza, seasonal, 08-16-2018 no information no name [facility] injectable [facility] (37857) pneumococcal 01-17-2018 - no information PATRICIA JARAMILLO 54630 [facility] conjugate vaccine, 01-17-2018 [facility] 13 valent [place] (34522) Translations: [ PCV 13] vaccine no information [facility] [place] Via Translations: [ 46182 [facility] vaccine] (48744) SINGLE IMMUNIZATION 01-17-2018 no information PATRICIA JARAMILLO 6 [phone] [facility] ADMIN [facility] (52206) Results Test Name Value Interpretation Reference Range Date Time Fa cility (Normalized) (Normalized) (Medline Reference) laboratory on 2020-04-05 Coronavirus Ab Negative (no code) 04-05-2020 PENDING LOC ATION Qn (S) 09:05-0400 [facility] (77504) not yet categorized on 2019-11-29 Abnormal no information (no code) [facility] Specimen [facility] Validity Test: [facility] (47381) COMMENT no information (no code) [facility] (06986) COMMENT no information (no code) [facility] (60467) d 100 (N) [facility] Methamphetamine [facility] (53334) l 0 (N) [facility] Methamphetamine [facility] (40545) Prescribed Drug no information (no code) [facility] (53197) Prescribed Drug no information (no code) [facility] (65119) Prescribed Drug no information (no code) [facility] (11918) Prescribed Drug no information (no code) [facility] (53512) Prescribed Drug no information (no code) [facility] (01741) laboratory on 2019-11-29 1-Hydroxymidazol no information (no code) [facility] Hea lt am (U) [facility] [Mass/Vol] [facility] (98936) 4-Isitcvunes-1,5 no information (no code) [facility] Hea lt -Dimethyl-3,3-Di [facility] e (EDDP) (U) (97548) [Mass/Vol] 7-Aminoclonazepa no information (no code) [facility] (U) [Mass/Vol] [facility] (90431) Albumin 4.1 g/dL (N) 3.4 - 5.4 g/dL [facility] [Mass/Vol] [facility] (40667) Albumin/Globulin 1.6 {ratio} (N) 1 - 2.5 {ratio} [facility] [Mass ratio] [facility] (98715) ALP [Catalytic 89 U/L (N) 44 - 147 U/L [facility] activity/Vol] [facility] (56180) Alpha no information (no code) [facility] hydroxyalprazola [facility] m (U) [Mass/Vol] [facility] (64323) Alpha no information (no code) [facility] hydroxytriazolam [facility] (U) [Mass/Vol] [facility] (57349) ALT [Catalytic 15 U/L (N) 4 - 40 U/L [facility] activity/Vol] [facility] () Amobarbital (U) no information (no code) [facility] [Mass/Vol] [facility] () Amphetamine (U) no information (no code) [facility] [Mass/Vol] [facility] (02142) Amphetamines Ql no information (no code) [facility] (U) [facility] () AST [Catalytic 16 U/L (N) 10 - 34 U/L [facility] activity/Vol] [facility] () Barbiturates Ql no information (no code) [facility] (U) [facility] () Basophils (Bld) 0.097 10*3/uL (N) 0 - 0.3 10*3/uL [facility] Health [#/Vol] [facility] () Basophils/100 0.9 % (N) 0.5 - 1 % [facility] WBC (Bld) [facility] () Benzodiazepines no information (no code) [facility] Heal th Ql (U) [facility] () Benzoylecgonine no information (no code) [facility] Heal th (U) [Mass/Vol] [facility] () Benzoylecgonine no information (no code) [facility] th Ql (U) [facility] () Bilirubin 0.3 mg/dL (N) 0.1 - 1.2 mg/dL [facility] Health [Mass/Vol] [facility] (50855) Butalbital (U) no information (no code) [facility] Healt h [Mass/Vol] [facility] () Calcium 9.6 mg/dL (N) 8.5 - 10.2 mg/dL Communit y Health [Mass/Vol] [facility] (69950) Chloride 104 mmol/L (N) 95 - 106 mmol/L [facility] [Moles/Vol] [facility] () Cholesterol 182 mg/dL (N) 180 - 200 mg/dL [facility] [Mass/Vol] [facility] (08692) Cholesterol in 71 mg/dL (N) [facility] HDL [Mass/Vol] [facility] (42155) Cholesterol in 83 mg/dL (N) 0 - 100 mg/dL [facility] LDL [Mass/Vol] [facility] (61549) Cholesterol non 111 mg/dL (N) [facility] HDL [Mass/Vol] [facility] (83628) Cholesterol.tota 2.6 {ratio} (N) [facility] lt l/Cholesterol in [facility] HDL [Mass ratio] [facility] (10217) CO2 [Moles/Vol] 27 mmol/L (N) 23 - 29 mmol/L [facility] (68479) Codeine (U) no information (no code) [facility] [Mass/Vol] [facility] () Creatinine (U) 0 mg/dL (no code) [facility] h [Mass/Vol] [facility] (76053) Creatinine (U) 219.9 mg/dL (N) [facility] [Mass/Vol] [facility] (25132) Creatinine 1.21 mg/dL (H) [facility] [Mass/Vol] [facility] (37423) Drug screen no information (no code) [facility] comment (U) [facility] [Interp] [facility] (63807) Eosinophils 0.248 10*3/uL (N) 0.05 - 0.5 [facility] (Bld) [#/Vol] 10*3/uL [facility] (12688) Eosinophils/100 2.3 % (N) 1 - 4 % [facility] Health WBC (Bld) [place] [facility] ([id number]) Erythrocyte 13.5 % (N) 11.6 - 14.6 % Community H ealth distribution [facility] width (RBC) [facility] [Ratio] (89755) GFR/1.73 sq M 51 (L) 90 - 120 Community He alth predicted among mL/min/{1.73_m2} mL/min/{1.73_m2} Center o f [facility] blacks MDRD [facility] (S/P/Bld) [Vol (64091) rate/Area] GFR/1.73 sq 44 (L) 90 - 120 [facility] Mpredicted MDRD mL/min/{1.73_m2} mL/min/{1.73_m2} [facility] (S/P/Bld) [Vol [facility] rate/Area] (48953) Globulin (S) 2.6 g/dL (N) 2 - 3.5 g/dL [facility] ealt [Mass/Vol] [facility] (20606) Glucose 98 mg/dL (N) 60 - 125 mg/dL [facility] [Mass/Vol] [facility] (16870) Hematocrit (Bld) 43.3 % (N) 36.1 - 50.3 % [facility] [[facility] (77492) Hemoglobin (Bld) 14.1 g/dL (N) 12.1 - 17.2 g/dL [facility] [Mass/Vol] [facility] (41957) Hydrocodone (U) no information (no code) [facility] [Mass/Vol] [facility] (17124) Hydromorphone no information (no code) [facility] ([facility] [Mass/Vol] [facility] (93346) Hydroxyethylflur no information (no code) [facility] azepam (U) [facility] [Mass/Vol] [facility] (64522) Lorazepam (U) no information (no code) [facility] [Mass/Vol] [facility] (55800) Lymphocytes 2.948 10*3/uL (N) 0.9 - 2.9 [facility] He alth (Bld) [#/Vol] 10*3/uL [facility] (31753) Lymphocytes/100 27.3 % (N) 20 - 40 % [facility] WBC (Bld) [facility] (29510) MCH (RBC) 27.5 pg (N) 27 - 31 pg [facility] [Entitic mass] [facility] (48884) MCHC (RBC) 32.6 g/dL (N) 32 - 36 g/dL [facility] [Mass/Vol] [facility] (42871) MCV (RBC) 84.6 fL (N) 80 - 100 fL [facility] [Entitic vol] [facility] (62907) Methadone (U) no information (no code) [facility] [Mass/Vol] [facility] (01042) Methadone Ql (U) no information (no code) [facility] (64510) Methamphetamine 0 ug/mL (no code) Community [facility] th (U) [Mass/Vol] [facility] (79284) Monocytes (Bld) 0.724 10*3/uL (N) 0.3 - 0.9 [facility] [#/Vol] 10*3/uL [facility] (30006) Monocytes/100 6.7 % (N) 2 - 8 % [facility] alth WBC (Bld) [facility] (51512) Morphine (U) no information (no code) [facility] [Mass/Vol] [facility] (94933) Neutrophils 6.782 10*3/uL (N) 1.7 - 7 10*3/uL [facility] (Bld) [#/Vol] [facility] (67472) Neutrophils/100 62.8 % (N) 40 - 60 % [facility] WBC (Bld) [facility] (26276) Nordiazepam (U) no information (no code) [facility] [Mass/Vol] [facility] (74170) Norhydrocodone no information (no code) [facility] Confirm (U) [facility] [Mass/Vol] [facility] (66573) Noroxycodone no information (no code) [facility] Confirm (U) [facility] [Mass/Vol] [facility] (22660) Opiates Ql (U) no information (no code) [facility] (67884) Oxazepam (U) no information (no code) [facility] [Mass/Vol] [facility] (76672) Oxidants Ql (U) no information (no code) [facility] (68474) Oxycodone (U) no information (no code) [facility] [Mass/Vol] [facility] (21564) Oxycodone Ql (U) no information (no code) [facility] (01006[facility] Oxymorphone (U) no information (no code) [facility] [Mass/Vol] [facility] (89292) Pentobarbital no information (no code) [facility] (U) [Mass/Vol] [facility] () pH (U) 6.0 [pH] (N) 4.6 - 8 [pH] [facility] He alth [facility] (84543) pH (U) 0 [pH] (no code) 4.6 - 8 [pH] [facility]th [facility] () Phencyclidine no information (no code) [facility] (U) [Mass/Vol] [facility] (29601) Phencyclidine Ql no information (no code) [facility] (U) [facility] (96857) Phenobarbital no information (no code) [facility] Healt h (U) [Mass/Vol] [facility] (78274) Platelet mean 11.6 fL (N) 7.2 - 11.7 fL [facility] volume (Bld) [facility] [Entitic vol] [facility] (00732) Platelets (Bld) 268 10*3/uL (N) 150 - 450 [facility] Health [#/Vol] 10*3/uL [facility] (69836) Potassium 4.8 mmol/L (N) 3.7 - 5.2 mmol/L [facility] [Moles/Vol] [facility] (37647) Protein 6.7 g/dL (N) 6.4 - 8.3 g/dL [facility] [Mass/Vol] [facility] (39442) RBC (Bld) 5.12 10*6/uL (H) 4.2 - 6.1 [facility] Hea lt [#/Vol] 10*6/uL [facility] (16884) Reference lab no information (no code) [facility] (Reference [facility] lab test) [ID] (78132) Secobarbital (U) no information (no code) [facility] Hea lt [Mass/Vol] [facility] (37398) Sodium 142 mmol/L (N) 135 - 145 mmol/L Communit [facility] [Moles/Vol] [facility] (20929) Specific gravity no information (no code) [facility] Hea lth (U) [Rel [facility]] [facility] (18453) Temazepam (U) no information (no code) [facility] Healt [Mass/Vol] [facility] (92547) Tetrahydrocannab no information (no code) [facility] inol (U) [facility] [Mass/Vol] [facility] (39111) Tetrahydrocannab no information (no code) [facility] inol Ql (U) [facility] (90886) Triglyceride 186 mg/dL (H) 0 - 150 mg/dL [facility] [Mass/Vol] [facility] (25519) Urea nitrogen 18 mg/dL (N) 7 - 20 mg/dL [facility] [Mass/Vol] [facility] (20938) Urea 15 mg/mg (N) 6 - 22 mg/mg [facility] alth nitrogen/Creatin [facility] [Mass ratio] [facility] (58587) WBC (Bld) 10.8 10*3/uL (N) 3.5 - 10.5 [facility] [#/Vol] 10*3/uL [facility] (07442) methicillin resistant staphylococcus aureus (mrsa) screening culture on 2019-05-30 MRSA isol Org MRSA not (no code) [place] [facility] specific cx Ql isolated [facility] ([facility] spec) (20224) urinalysis on 2018-07-13 Amphetamines Ql Negative (no code) no information (U) Benzodiazepines Negative (no code) no information Screen Ql (U) Benzoylecgonine Negative (no code) no information Ql (U) Creatinine mass 37.4 mg/dL (no code) no information conc (U) Methadone Ql (U) Negative (no code) no informatio n Opiates Ql (U) Negative (no code) no information Phencyclidine Ql Negative (no code) no informatio n (U) Tetrahydrocannab Negative (no code) no informatio n inol Ql (U) other on 2018-07-13 Barbiturates Negative (no code) no information COMMENT no information (no code) no information Desmethyltramado 548 (H) [facility] l [facility] (65154) medMATCH CONSISTENT (no code) no information Amphetamines medMATCH CONSISTENT (no code) no information Barbiturates medMATCH CONSISTENT (no code) no information Benzodiazepines medMATCH Cocaine CONSISTENT (no code) no informatio n Metab medMATCH CONSISTENT (no code) [facility] Desmethyltram [facility] (30836) medMATCH CONSISTENT (no code) no information Marijuana Metab medMATCH CONSISTENT (no code) no information Methadone Metab medMATCH Opiates CONSISTENT (no code) no informatio n medMATCH CONSISTENT (no code) no information Oxycodone medMATCH CONSISTENT (no code) no information Phencyclidine medMATCH CONSISTENT (no code) [facility] Tramadol [facility] (85613) Oxidant Negative (no code) no information Oxycodone Negative (no code) no information Prescribed Drug Tramadol (no code) no information 1 Prescribed Drug Tramadol (no code) no information 3 Tramadol 7925 (H) [facility] (30430) hematology on 2018-07-13 pH (Bld) 7.23 [pH] (no code) 7.38 - 7.42 [pH] no infor mation other on 2018-01-17 Albumin/Globulin 1.7 (N) [facility] mass ratio [facility] (15793) Cholesterol in 93 (N) [facility] LDL mass conc [facility] (21239) Cholesterol non 119 (N) [facility] HDL mass conc [facility] (93575) Cholesterol.tota 2.7 (N) [facility] l/Cholesterol in [facility] HDL mass ratio [facility] (44614) Globulin 2.4 (N) [facility] h Calculated mass [facility] (S) [facility] (45199) metabolic panel on 2018-01-17 Albumin mass 4.1 g/dL (N) 3.4 - 5.4 g/dL [facility] (14126) ALP enzyme 99 U/L (N) 44 - 147 U/L [facility] act/[facility] (52555) ALT enzyme 13 U/L (N) 4 - 40 U/L [facility] act/[facility] (60523) AST enzyme 13 U/L (N) 10 - 34 U/L [facility] act/[facility] (70379) Bilirubin mass 0.5 mg/dL (N) 0.1 - 1.2 mg/dL [facility] (74789) Calcium mass 9.2 mg/dL (N) 8.5 - 10.2 mg/dL [facility] (97587) Chloride molar 106 mmol/L (N) 95 - 106 mmol/L [facility] (86052) CO2 molar conc 26 mmol/L (N) 23 - 29 mmol/L [facility] (46652) Creatinine mass 0.86 mg/dL (N) [facility] (83193) GFR/1.73 sq M 79 (N) 90 - 120 [facility] predicted among mL/min/{1.73_m2} mL/min/{1.73_m2} [place] o f [facility] blacks MDRD [facility] rate/area (80357) (S/P/Bld) GFR/1.73 sq 68 (N) 90 - 120 [facility] M.predicted MDRD mL/min/{1.73_m2} mL/min/{1.73_m2} [facility] rate/[facility] (40392) Glucose mass 105 mg/dL (H) 60 - 125 mg/dL [facility] (27473) Potassium molar 4.3 mmol/L (N) 3.7 - 5.2 mmol/L [facility] (66803) Protein mass 6.5 g/dL (N) 6.4 - 8.3 g/dL [facility] (34933) Sodium molar 142 mmol/L (N) 135 - 145 mmol/L Commun[facility] (01423) Urea nitrogen 13 mg/dL (N) 7 - 20 mg/dL [facility] (42128) Urea NOT APPLICABLE (no code) [facility] nitrogen/Creatin [facility] (30690) cardiac on 2018-01-17 Cholesterol in 71 mg/dL (N) [facility] HDL [facility] (69914) Cholesterol mass 190 mg/dL (N) 180 - 200 mg/dL [facility] (58106) Triglyceride 166 mg/dL (H) 0 - 150 mg/dL [facility] (37068) Vital Signs Vital Sign Value Interpretation Reference Date Time Care Prov ider Facility (Normalized) (Normalized) Range BMI (Body Mass 42.7 kg/m2 (no code) 15 - 25 kg/m2 10-10-2018 BR ENDA CLINT Community Index) 10:00-0500 09597 [facility] (49967) BMI (Body Mass 41.82 kg/m2 (no code) 15 - 25 kg/m2 07-13-2018 B DANNY CLINT Community Index) 10:20-[id number] [place] [address] (74711) BMI (Body Mass 41.15 kg/m2 (no code) 15 - 25 kg/m2 05-04-2018 B DANYN CLINT Community Index) 11:40-[id number] [place] [address] (62784) BMI (Body Mass 39.33 kg/m2 (no code) 15 - 25 kg/m2 01-17-2018 B DANNY CLINT Community Index) 10:00-[address] [place], [place] [address]s (26592) Body height 167.64 cm (no code) cm 03-13-2014 [facility] 17:09-0400 69375 [facility] (00589) Body height 167.64 cm (no code) cm 11-30-2013 [facility] 16:44-0500 55065 [facility] (27023) Body 98.2 [degF] (no code) 97.8 - 99.0 10-10-2018 [facility] Temperature [degF] 10:00-0500 48566 [facility] (38322) Body 97.9 [degF] (no code) 97.8 - 99.0 07-13-2018 [facility] Temperature [degF] 10:20-0400 95958 [facility] (62312) Body 97.6 [degF] (no code) 97.8 - 99.0 05-04-2018 [facility] Temperature [degF] 11:40-0400 83547 [facility] (29772) Body 98.2 [degF] (no code) 97.8 - 99.0 01-17-2018 [facility] Temperature [degF] 10:00-0500 83967 [facility] (44143) Body 99.2 [degF] (no code) 97.8 - 99.0 11-29-2014 [facility] Temperature [degF] 16:21-0500 52177 [facility] (44540) Body 98.2 [degF] (no code) 97.8 - 99.0 10-16-2014 [facility] Temperature [degF] 14:41-0500 51307 [facility] (40818) Body 98.4 [degF] (no code) 97.8 - 99.0 03-13-2014 [facility] temperature [degF] 17:09-0400 34607 [facility] (68843) Body 98.6 [degF] (no code) 97.8 - 99.0 11-30-2013 [facility] temperature [degF] 16:44-[address] [place] [address] (69924) Body weight 90.72 kg (no code) kg 11-29-2014 [facility] [id number]:210500 [address] [place] [address] (85472) Body weight 91.49 kg (no code) kg 10-16-2014 [facility] 14:41-[address] [place] [address] (92251) Body weight 90.4 kg (no code) kg 03-13-2014 [facility] 17:[id number] [address] [place] [address] (76899) Body weight 89.09 kg (no code) kg 11-30-2013 [facility] 16:44-[address] [place] [address] (75969) Height 167.64 cm (no code) cm 10-10-2018 [facility] 10:00-[address] [place] [address] (24941) Height 167.64 cm (no code) cm 07-13-2018 [facility] 10:20-[address] [place] [address] (43008) Height 167.64 cm (no code) cm 05-04-2018 [facility] 11:40-[address] [place] [address] (80406) Height 167.64 cm (no code) cm 01-17-2018 [facility] 10:00-[address] [place] [address] (79649) Height 167.64 cm (no code) cm 11-29-2014 [facility] 16:21-[address] [place] [address] (44322) Height 167.64 cm (no code) cm 10-16-2014 [facility] 14:41-[address] [place] [address] (09548) Pulse Oximetry 0 % (no code) 95 - 100 % 10-10-2018 [facility] 10:00-0500 26955 [facility] (94045) Pulse Oximetry 0 % (no code) 95 - 100 % 05-04-2018 [facility] 11:40-0400 44629 [facility] (29058) Pulse Oximetry 0 % (no code) 95 - 100 % 01-17-2018 [facility] 10:00-0500 46815 [facility] (69455) Weight 120.02 kg (no code) kg 10-10-2018 [facility] 10:00-[id number] [place] [address] ([id number]) Weight 117.53 kg (no code) kg 07-13-2018 [facility] 10:20-[id number] [place] [address] (08789) Weight 115.67 kg (no code) kg 05-04-2018 [facility] 11:40-[id number] [place] [address] ([id number]) Weight 110.54 kg (no code) kg 01-17-2018 [facility] 10:00-[address] [place] [address] (35466) Interventions No Information Plan of Treatment Normalized Care Care Detail Care Activity Date Care Provider F acility Activity (CHM) Chronic Health [facility] 10-10-2018 PATRICIA ZEENAT N [address] [facility] (18318) Patient encounter no information 04-26-2020 [facility] (11388[facility] Goals No Information Social History No Information Functional Status The data below is from unstructured sources Query Response Date Bhupendra rded Pasero Opioid-induced Sedation Scale (POSS) Awake and alert June 07, 2019 10:52am Mental Status No Information Encounters Encounter Normalized Encounter Encounter Diagnosis Care Provi radha Organization Date Type 06-07-2019 Admission to day no information MARILEE EDWARD Wo rk no organization name - surgery Phone: 06-07-2019 02-10-2020 [facility] [place] without CRYSTAL LU (no [facility] CARE complications phone) CARE (no phone) 11-29-2019 [facility] Chronic obstructive PATRICIA DAVIS (no [facility] pulmonary disease, phone) (no phone) unspecified 09-18-2019 [facility] Encounter for PATRICIA JARAMILLO (no [facility] immunization phone) (no phone) 11-24-2016 Emergency department no information no name no organization name - patient visit 11-24-2016 11-24-2016 Emergency department no information SATHISH BAPTISTE MD [facility] - patient visit (no phone) [facility] 11-24-2016 (no phone) 10-01-2016 Emergency department no information VIET Allison DO [facility] - patient visit (no phone) [facility] 10-01-2016 (no phone) 07-13-2018 Patient encounter no information no name no or ganization name NEGATED Patient encounter no information no name no or ganization name 05-04-2018 04-20-2018 Patient encounter no information no name no or ganization name 04-18-2018 Patient encounter no information no name no or ganization name 03-02-2018 Patient encounter no information no name no or ganization name 01-17-2018 Patient encounter no information no name no or ganization name 04-15-2017 Patient encounter no information no name no or ganization name 11-05-2016 Patient encounter no information no name no or ganization name - 11-05-2016 10-21-2016 Patient encounter no information no name no or ganization name - 10-21-2016 03-02-2016 Patient encounter no information no name no or ganization name 02-22-2016 Patient encounter no information no name no or ganization name 02-13-2016 Patient encounter no information no name no or ganization name 08-15-2015 Patient encounter no information no name no or ganization name 07-25-2015 Patient encounter no information no name no or ganization name - 08-14-2015 07-04-2015 Patient encounter no information LEANDRO NELSON DO (no [facility] - phone) [facility] 07-08-2015 (no phone) 02-14-2015 Patient encounter no information no name no or ganization name - 02-15-2015 12-26-2014 Patient encounter no information no name no or ganization name 05-08-2013 Patient encounter no information no name no or ganization name 04-12-2013 Patient encounter no information no name no or ganization name NEGATED Patient encounter no information no name no or ganization name 04-05-2020 Patient encounter no information ALEXA GASTON DO ( no [facility] - procedure phone) [facility] 04-05-2020 (no phone) 02-10-2020 Patient encounter no information PATRICIA JARAMILLO ( no [facility] procedure phone) [facility] (no phone) 11-29-2019 Patient encounter no information no name no or ganization name procedure 06-28-2019 Patient encounter Encounter for general PATRICIA BARRAZA (no [facility] - procedure adult medical phone) (no phone) 06-28-2019 examination without - abnormal findings 06-28-2019 06-07-2019 Patient encounter no information MARILEE Ackerman [facility] - procedure (no phone) [facility] 06-07-2019 (no phone) 05-30-2019 Patient encounter no information MARILEE carvajal no organization name - procedure Phone: 05-30-2019 05-30-2019 Patient encounter no information no name no or ganization name procedure 04-25-2019 Patient encounter no information no name no or ganization name procedure 04-25-2019 Patient encounter no information no name no or ganization name procedure 04-11-2019 Patient encounter no information no name no or ganization name procedure 04-11-2019 Patient encounter no information no name no or ganization name procedure 03-29-2019 Patient encounter no information no name no or ganization name procedure 03-28-2019 Patient encounter no information no name no or ganization name procedure 01-11-2019 Patient encounter no information no name no or ganization name procedure 10-10-2018 Patient encounter no information no name no or ganization name procedure 04-20-2018 Patient encounter no information KEAGAN CARTAGENA [facility] procedure [facility] [employer] (no phone) [facility] (no phone) 04-15-2017 Patient encounter no information no name no or ganization name procedure 11-24-2016 Patient encounter no information no name no or ganization name procedure 11-05-2016 Patient encounter no information STEVEN FALCON MD (n o [facility] - procedure phone) [facility] 11-05-2016 (no phone) 11-03-2016 Patient encounter no information STEVEN FALCON MD (n o [facility] - procedure phone) [facility] 11-03-2016 (no phone) 10-28-2016 Patient encounter no information no name no or ganization name procedure 10-21-2016 Patient encounter no information LEANDRO NELSON DO (no [facility] - procedure phone) [facility] 10-21-2016 (no phone) 10-20-2016 Patient encounter no information LEANDRO NELSON DO (no [facility] procedure phone) [facility] (no phone) 03-02-2016 Patient encounter no information PATRICIA NAYLOR P [facility] procedure (no phone) [facility] (no phone) 02-22-2016 Patient encounter no information MARY MENDOZA [facility] procedure (no phone) [facility] (no phone) 02-13-2016 Patient encounter no information no name no or ganization name procedure 05-04-2018 [facility], initial visit no information no name no organization name 02-15-2020 Telephone encounter no information PATRICIA CLINT ( no [facility] phone) (no phone) 02-12-2020 Telephone encounter Pain in thoracic spine PATRICIA B RENNAN (no [facility] phone) (no phone) 02-07-2020 Telephone encounter Pain in thoracic spine PATRICIA B RENNAN (no [facility] phone) (no phone) 01-08-2020 Telephone encounter Pain in thoracic spine PATRICIA B RENNAN (no [facility] phone) (no phone) 12-21-2019 Telephone encounter no information PATRICIA CLINT ( no [facility] phone) (no phone) 12-19-2019 Telephone encounter no information PATRICIA CLINT ( no [facility] phone) (no phone) 12-13-2019 Telephone encounter Pain in thoracic spine PATRICIA B RENNAN (no [facility] phone) (no phone) 11-14-2019 Telephone encounter Pain in thoracic spine PATRICIA B EVERT (no [facility] phone) (no phone) 10-17-2019 Telephone encounter Pain in thoracic spine PATRICIA B EVERT (no [facility] [place] [facility] phone) (no phone) 09-18-2019 Telephone encounter Pain in thoracic spine PATRICIA B EVERT (no [facility] [place] [place] [facility] [facility] phone) (no phone) 08-22-2019 Telephone encounter Pain in thoracic spine PATRICIA B EVERT (no [facility] [place] [facility] [facility] phone) (no phone) 07-24-2019 Telephone encounter Pain in thoracic spine PATRICIA B EVERT (no [facility] - phone) (no phone) 07-24-2019 - 07-24-2019 06-28-2019 Telephone encounter Pain in thoracic spine PATRICIA B EVERT (no [facility] - phone) AHRSHAD SALINAS (no phone) 06-28-2019 (no phone) - 06-28-2019 07-05-2018 Telephone encounter no information PATRICIA JARAMILLO ( no [facility] - phone) (no phone) 07-05-2018 - 07-05-2018 07-01-2018 Telephone encounter Pain in thoracic spine PATRICIA B EVERT (no [facility] - phone) (no phone) 07-01-2018 - 07-01-2018 no information Encounter for general no name no organ ization name adult medical examination without abnormal findings no information Encounter for other no name (no phone) preprocedural examination Medical Equipment No Information Payers Normalized Payer Value Medicare [id number] ([id number]) History general Narrative - Reported Note Type Note Facility History general Narrative - Reported Type Medical sleep apnea History Medical emphysema History Medical heartburn History Medical broken back in two place History Medical broken right shoulder History Medical knee surgery History Surgical x 3 History Surgical gallbladder History Surgical knee surgery- rt knee 06/06/2019 History Hospitaliz surgery ation History [facility] ([id number]) Advance Directives Directive Response Recor ded Date/Time Advance Directives No 6:28am Health Care Power of Elementary Science Teacher No 10/21/16 6:28am Organ Donor No 10/21/16 6:28am Resuscitation Status Full Code 10/21/16 6:28am Directive Response Recor ded Date/Time Advance Directives No 11:26am Health Care Power of Elementary Science Teacher No 11/03/16 11:26am Organ Donor No 11/03/16 11:26am Resuscitation Status Full Code 11/03/16 11:26am Directive Response Recor ded Date/Time Advance Directives No 6:56am Health Care Power of Elementary Science Teacher No 06/07/19 6:56am Organ Donor No 06/07/19 6:56am Resuscitation Status Full Code 06/07/19 6:56am Discharge Instructions No hospital discharge instructions.No hospital discharge instructions.No hospital discharge instructions.No hospital discharge instructions.No hospital discharge instructions.No hospital discharge instruction information available. Summary Purpose eClinicalWorks SubmissioneClinicalWorks SubmissioneClinicalWorks SubmissioneClinicalWorks SubmissioneClinicalWorks SubmissioneClinicalWorks SubmissioneClinicalWorks Submission Additional Source Comments This clinical document has been generated using [employer] software that has been certified by the Office of the National Coordinator for Health Information Technology (ONC 15.99.04.3023.Diam.31.00.0.370906) and the National Committee for Oyster Opener (NCQA, as an eMeasure certified technology). FOR RECORDS PERTAINING TO PATIENTS WHO ARE OR HAVE BEEN ENROLLED IN A CHEMICAL D EPENDENCY/SUBSTANCE ABUSE PROGRAM, SOME INFORMATION MAY BE OMITTED. This clinica l summary was aggregated from multiple sources. Caution should be exercised in using it in the provision of clinical care. This summary normalizes information from multiple sources, and as a consequence, information in this document may ma terially change the coding, format and clinical context of patient data. In kaleb tion, data may be omitted in some cases. CLINICAL DECISIONS SHOULD BE BASED ON T HE PRIMARY CLINICAL RECORDS. [employer] provides no warranty or guara ntee of the accuracy or completeness of information in this document.The followi ng information is based on time limited clinical information UNRECOGNIZED CONTENT PROVIDED BELOW FOR UNRECOGNIZED SECTION MEDICAL (GENERAL) HISTORY Type Description Date Medical History sleep apnea Medical History emphysema Medical History heartburn Medical History broken back in two place Medical History broken right shoulder Surgical History x 3 Surgical History gallbladder Hospitalization History surgery Type Description Date Medical History sleep apnea Medical History emphysema Medical History heartburn Medical History broken back in two place Medical History broken right shoulder Medical History knee surgery Surgical History x 3 Surgical History gallbladder Surgical History knee surgery- rt knee 06/06/2019 Hospitalization History surgery UNRECOGNIZED CONTENT PROVIDED BELOW FOR UNRECOGNIZED SECTION REASON FOR VISIT general physical WB-MA, Annual medicare visit, No major concernsControlled Med R efill 06/06/18CCM callControlled Med Refill 07/04/18CCM noteCCM noteControlled Med Refill 08/01/18Pain management (chronic) Pt in for pain management Carolin Monaco ntrolled Med Refill 08/29/18Refill requestRequests return callControlled Med Ref ill refillControlled Med Refill 10/24Pain mgmt follow up Pt in for pain managmen Smita Small-MigEMR-Rebecca-TimothyControlled 4/1CCM call
--- OUTSIDE RECORDS SUMMARY | 2020-04-10 09:02 | XMS REPORT ---
Author Author Aldo JARAMILLO Organization [facility] Address [address] [place] [address] Care Team Providers Care Area Captain Name Role Phone PATRICIA JARAMILLO Unavailable PROBLEMS Type Condition ICD9-CM Code RGX31-TM Code Onset Dates Condition S tatus SNOMED Code Problem Mammogram declined Z53.20 Active 1 [id number] Problem Tobacco abuse Z72.0 Active 537355 05 Problem Shoulder fracture, right S42.91XA Activ e 46124469 Problem Obstructive sleep apnea syndrome G47.33 Active 20841577 Problem Body mass index (BMI) 45.0-49.9, adult Z68.42 Active 856326797 Problem S/P cholecystectomy Z90.49 Active 474295871 Problem Chronic obstructive pulmonary disease, unspecified J44.9 Active 52967778 Problem Other chronic pain G89.29 Active 8 5818038 Problem Essential hypertension I10 Active 10431568 ALLERGIES No Information ENCOUNTERS Encounter Location Date Diagnosis [place] [address] [address] 24 Dec, 2019 Pain in thoracic spine M54.6 [place] [address] [address] Dec, [place] [address] [address] Dec, [place] [address] [address] Nov, Pain in thoracic spine M54.6 [place] [address] [address] 15 Nov, 2019 Chronic obstructive pulmonary disease, u nspecified J44.9 ; Incisional hernia, without obstruction or gangrene K43.2 ; Other chronic pain G89.29 ; Screening, lipid Z13.220 and Obstructive sleep apnea syndrome G47.33 [facility] [address] [place] [id number] [place] [address] Oct, Pain in thoracic spine M54.6 [facility] [address] [place] [address] Oct, Pain in thoracic spine M54.6 [facility] [address] [address] Sep, Pain in thoracic spine M54.6 [facility] [address] [address] Sep, Encounter for immunization Z23 [place] [address] [address] Aug, Pain in thoracic spine M54.6 [place] [address] [address] Jul, Pain in thoracic spine M54.6 [facility] [address] [address] Jun, Pain in thoracic spine M54.6 [place] [address] [address] Jun, Encounter for Medicare annual wellness e xam Z00.00 ; Chronic obstructive pulmonary disease, unspecified J44.9 ; Essential hypertension I10 ; Other chronic pain G89.29 ; Morbid obesity E66.01 ; Status post arthroscopic knee surgery Z98.890 and Obstructive sleep apnea syndrome G47.33 [facility] [address] [place] [id number] [place] [address] May, Pain in thoracic spine M54.6 [facility] [address] [address] [address] [place] [address] Apr, Pain in thoracic spine M54.6 [facility] [address] [place] [address] [address] [place] [address] Apr, Acute pain of right knee M25.561 [place] [address] [place] [id number] [place] [address] March, Pain in thoracic spine M54.6 [facility] [address] [address] March, Right medial knee pain M25.561 ; Pain in thoracic spine M54.6 and Morbid obesity E66.01 [facility] [address] [facility] [place] [id number] [place] [address] March, Acute pain of right knee M25 .561 and Morbid obesity E66.01 [facility] [address] [place] [address] [id number] [place] [address] Feb, [facility] [address] [address] Feb, Pain in thoracic spine M54.6 [facility] [address] [address] Jan, [facility] [address] [address] Jan, Pain in thoracic spine M54.6 [facility] [address] [address] Dec, Pain in thoracic spine M54.6 [facility] [address] [address] Dec, Chronic obstructive pulmonary disease, u nspecified J44.9 ; Other chronic pain G89.29 and BMI 40.0-44.9, adult Z68.41 [facility] [address] [place] [address] [id number] [place] [address] Dec, [facility] [address] [address] Nov, Pain in thoracic spine M54.6 [facility] [address] [address] Nov, [facility] [address] [address] Nov, Pain in thoracic spine M54.6 [facility] [address] [address] Oct, [facility] [address] [address] Oct, [facility] [address] [address] Oct, Pain in thoracic spine M54.6 [facility] [address] [address] Sep, Pain in thoracic spine M54.6 ; BMI 40.0- 44.9, adult Z68.41 and History of tobacco use Z87.891 [facility] [address] [address] Sep, [facility] [address] [address] Sep, Pain in thoracic spine M54.6 [facility] [address] [address] Sep, [facility] [address] [address] Aug, Chronic obstructive pulmonary disease, u nspecified J44.9 [facility] [address] [address] Aug, [facility] [address] [address] Aug, Pain in thoracic spine M54.6 [facility] [address] [address] Aug, Encounter for immunization Z23 [facility] [address] [address] 14 Jul, 2018 Pain in thoracic spine M54.6 [facility] [address] [address] Jun, [facility] [address] [address] Jun, Therapeutic drug monitoring Z51.81 ; Shayy n in thoracic spine M54.6 and BMI 40.0-44.9, adult Z68.41 [facility] [address] [address] Jun, [facility] [address] [address] Jun, Pain in thoracic spine M54.6 [facility] [address] [address] May, Pain in thoracic spine M54.6 [facility] [address] [address] May, [facility] [address] [address] Apr, [facility] [address] [address] Apr, Pain in thoracic spine M54.6 [facility] [address] [address] Apr, [facility] [address] [address] Apr, Medicare annual wellness visit, initial Z00.00 ; BMI 40.0-44.9, adult Z68.41 ; Chronic obstructive pulmonary disease, unspecified J44.9 ; Other chronic pain G89.29 and Essential hypertension I10 [facility] [address] [address] March, Pain in thoracic spine M54.6 [facility] [address] [address] Feb, Pain in thoracic spine M54.6 [facility] [address] [address] Feb, Pain in thoracic spine M54.6 ; Other chr onic pain G89.29 ; Chronic obstructive pulmonary disease, unspecified J44.9 and Periumbilical hernia K42.9 [place] [address] [address] Jan, Pain in thoracic spine M54.6 [place] [address] [address] Jan, Chronic obstructive pulmonary disease, u nspecified J44.9 ; Encounter for immunization Z23 ; Screening, lipid Z13.220 ; Renal insufficiency N28.9 ; Pain in thoracic spine M54.6 and Other chronic pain G89.29 [facility] [address] [place] [id number] [place] [address] Sep, Irritation of right eye H57. [address] [address] May, Chronic obstructive pulmonary disease, u nspecified COPD type J44.[address] [address] March, [address] [address] Oct, Medicare annual wellness visit, subseque nt Z00.00 ; Encounter for immunization Z23 and S/P cholecystectomy Z90.49 [place] [address] [address] Oct, [address] [address] Sep, [facility] [address] [place] [id number] [place] [address] Aug, Wheezing R06.2 and Community acquired pneumonia J18.[address] [address] March, Shoulder fracture, right, with routine h ealing, subsequent encounter S42.91XD [address] [address] Feb, Shoulder fracture, right S42.91XA [address] [place] [address] Feb, Shoulder pain M25.519 [facility] [address] [facility] [place] [id number] [address] [place] [address] Feb, [facility] [address] [facility] [place] [id number] [address] [place] [address] 09 Feb, 2016 Right shoulder pain M25.511 [facility] [address] [address] 08 Feb, 2016 [facility] [address] [address] Jan, Renal insufficiency N28.9 [place] [address] [address] Dec, [place] [address] [address] Dec, Bronchitis J40 [place] [address] [address] Dec, [facility] [address] [address] Dec, [place] [address] [address] Nov, [place] [address] [address] Oct, Renal insufficiency N28.9 [place] [address] [address] Oct, Screening, lipid Z13.220 [place] [address] [address] 10 Oct, 2015 Chronic obstructive pulmonary disease, u nspecified COPD type J44.9 ; Gastroesophageal reflux disease, esophagitis presence not specified K21.9 ; Dysthymia F34.1 and Screening, lipid Z13.220 [place] [address] [address] Jun, [facility] [address] [address] [id number] [place] [address] Jun, Sleep apnea 780.57 and COPD (chronic obs tructive pulmonary disease) 496 [facility] [address] [address] 29 Apr, 2015 COPD (chronic obstructive pulmonary dise ase) 496 [facility] [address] [address] Feb, [facility] [address] [address] Feb, [facility] [address] [address] Nov, [facility] [address] [address] Nov, [facility] [address] [address] Nov, [facility] [address] [address] Nov, [facility] [address] [address] Oct, [facility] [address] [address] Oct, [facility] [address] [address] Oct, [facility] [address] [address] Oct, [facility] [address] [place] [id number] [place] [address] Oct, [facility] [address] [address] Oct, [facility] [address] [place] [id number] [place] [address] Oct, [facility] [address] [address] Oct, [facility] [address] [facility] [place] [id number] [place] [address] March, [facility] [address] [facility] [place] [id number] [place] [address] March, [facility] [address] [id number] [place] [address] March, [facility] [address] [id number] [place] [address] March, [facility] [address] [facility] [place] [id number] [place] [address] Feb, [facility] [address] [id number] [place] [address] Feb, [facility] [address] [id number] [place] [address] Feb, [facility] [address] [id number] [place] [address] Feb, [facility] [address] [id number] [place] [address] Feb, [facility] [address] [id number] [place] [address] Feb, [facility] [address] [id number] [place] [address] Jan, [facility] [address] [id number] [place] [address] Jan, [facility] [address] [id number] [place] [address] Nov, [facility] [address] [id number] [place] [address] Nov, [facility] [address] [id number] [place] [address] Nov, [facility] [address] [id number] [place] [address] Aug, [facility] [address] [id number] [place] [address] Aug, [facility] [id number] [place] [address] Aug, [facility] [address] [id number] [place] [address] Jun, [facility] [address] [id number] [place] [address] Jun, [facility] [address] [id number] [place] [address] Apr, [facility] [address] [id number] [place] [address] Apr, [facility] [address] [id number] [place] [address] March, [facility] [address] [id number] [place] [address] Feb, [facility] [address] [id number] [place] [address] Feb, [facility] [address] [id number] [place] [address] Jan, [facility] [address] [id number] [place] [address] Dec, [facility] [address] [id number] [place] [address] Dec, [facility] [address] [id number] [place] [address] Dec, [facility] [address] [id number] [place] [address] Nov, [facility] [address] [id number] [place] [address] Nov, [facility] [address] [id number] [place] [address] Nov, [facility] [address] [id number] [place] [address] Oct, [facility] [address] [id number] [place] [address] Oct, [facility] [address] [id number] [place] [address] Sep, [facility] [address] [id number] [place] [address] Sep, [facility] [address] [id number] [place] [address] Aug, [facility] [address] [id number] [place] [address] Jul, [facility] [address] [id number] [place] [address] May, [facility] [address] [id number] [place] [address] May, [facility] [address] [id number] [place] [address] March, [facility] [address] [id number] [place] [address] Nov, [facility] [address] [id number] [place] [address] Oct, [facility] [address] [id number] [place] [address] Sep, [facility] [address] [id number] [place] [address] Sep, [facility] [address] [id number] [place] [address] Sep, [facility] [address] [id number] [place] [address] Aug, [facility] [address] [id number] [place] [address] Aug, [facility] [address] [id number] [place] [address] Oct, [facility] [address] [id number] [place] [address] Oct, [facility] [address] [id number] [place] [address] Oct, [facility] [address] [id number] [place] [address] Aug, [facility] [address] [id number] [place] [address] Aug, [facility] [address] [id number] [place] [address] Aug, [facility] [address] [id number] [place] [address] Oct, [facility] [address] [id number] [place] [address] Sep, [facility] [address] [id number] [place] [address] Sep, [facility] [address] [id number] [place] [address] Jul, IMMUNIZATIONS No Known Immunizations SOCIAL HISTORY [...]
--- OUTSIDE RECORDS SUMMARY | 2020-04-10 09:02 | XMS REPORT ---
Author Author Aldo JARAMILLO Organization [facility] Address [address] [place] [address] Care Team Providers Care Other Spatial Scientist Name Role Phone PATRICIA JARAMILLO Unavailable PROBLEMS Type Condition ICD9-CM Code [id number] Code Onset Dates Condition S tatus SNOMED Code Problem Mammogram declined Z53.20 Active 1 [id number] Problem Tobacco abuse Z72.0 Active 116575 05 Problem Shoulder fracture, right S42.91XA Activ e 93040220 Problem Obstructive sleep apnea syndrome G47.33 Active 47866418 Problem Body mass index (BMI) 45.0-49.9, adult Z68.42 Active 963753657 Problem S/P cholecystectomy Z90.49 Active 022291696 Problem Chronic obstructive pulmonary disease, unspecified J44.9 Active 75719992 Problem Other chronic pain G89.29 Active 8 7810679 Problem Essential hypertension I10 Active 11011468 ALLERGIES No Information ENCOUNTERS Encounter Location Date Diagnosis [facility] [address] [facility] [id number] [address] [place] [address] Feb, [facility] [address] [place] [id number] [address] [place] [address] Jan, Pain in thoracic spine M54.6 [facility] [address] [facility] [id number] [address] [place] [address] Jan, Herpes zoster without compli cation B02.9 [facility] [address] [facility] [id number] [address] [place] [address] Jan, Pain in thoracic spine M54.6 [facility] [address] [facility] [id number] [address] [place] [address] Dec, Pain in thoracic spine M54.6 [facility] [address] [id number] [address] [place] [address] 06 Dec, 2019 [facility] [address] [id number] [address] [place] [address] Dec, [facility] [address] [id number] [address] [place] [address] Nov, Pain in thoracic spine M54.6 [facility] [address] [id number] [address] [place] [address] 15 Nov, 2019 Chronic obstructive pulmonar y disease, unspecified J44.9 ; Incisional hernia, without obstruction or gangrene K43.2 ; Other chronic pain G89.29 ; Screening, lipid Z13.220 and Obstructive sleep apnea syndrome G47.33 [place] [address] [id number] [address] [place] [address] Oct, Pain in thoracic spine M54.6 [facility] [address] [id number] [address] [place] [address] Oct, Pain in thoracic spine M54.6 [facility] [address] [id number] [address] [place] [address] Sep, Pain in thoracic spine M54.6 [facility] [address] [id number] [address] [place] [address] Sep, Encounter for immunization Z 23 [facility] [address] [id number] [address] [place] [address] Aug, Pain in thoracic spine M54.6 [facility] [address] [id number] [address] [place] [address] Jul, Pain in thoracic spine M54.6 [facility] [address] [id number] [address] [place] [address] Jun, Pain in thoracic spine M54.6 [facility] [address] [id number] [address] [place] [address] Jun, Encounter for Medicare annua l wellness exam Z00.00 ; Chronic obstructive pulmonary disease, unspecified J44.9 ; Essential hypertension I10 ; Other chronic pain G89.29 ; Morbid obesity E66.01 ; Status post arthroscopic knee surgery Z98.890 and Obstructive sleep apnea syndrome G47.33 [facility] [address] [id number] [address] [place] [address] May, Pain in thoracic spine M54.6 [facility] [address] [id number] [address] [place] [address] Apr, Pain in thoracic spine M54.6 [facility] [address] [id number] [address] [place] [address] Apr, Acute pain of right knee M25 .561 [facility] [address] [id number] [address] [place] [address] March, Pain in thoracic spine M54.6 [facility] [address] [id number] [address] [place] [address] March, Right medial knee pain M25.5 61 ; Pain in thoracic spine M54.6 and Morbid obesity E66.01 [facility] [address] [id number] [address] [place] [address] March, Acute pain of right knee M25 .561 and Morbid obesity E66.01 [facility] [address] [id number] [address] [place] [address] Feb, [facility] [address] [id number] [address] [place] [address] Feb, Pain in thoracic spine M54.6 [facility] [address] [id number] [address] [place] [address] Jan, [facility] [address] [id number] [address] [place] [address] Jan, Pain in thoracic spine M54.6 [facility] [address] [id number] [address] [place] [address] Dec, Pain in thoracic spine M54.6 [facility] [address] [id number] [address] [place] [address] Dec, Chronic obstructive pulmonar y disease, unspecified J44.9 ; Other chronic pain G89.29 and BMI 40.0-44.9, adult Z68.41 [facility] [address] [id number] [address] [place] [address] Dec, [facility] [address] [id number] [address] [place] [address] Nov, Pain in thoracic spine M54.6 [facility] [address] [id number] [address] [place] [address] Nov, [facility] [address] [id number] [address] [place] [address] Nov, Pain in thoracic spine M54.6 [facility] [address] [id number] [address] [place] [address] Oct, [facility] [address] [id number] [address] [place] [address] Oct, [facility] [address] [id number] [address] [place] [address] Oct, Pain in thoracic spine M54.6 [facility] [address] [id number] [address] [place] [address] Sep, Pain in thoracic spine M54.6 ; BMI 40.0-44.9, adult Z68.41 and History of tobacco use Z87.891 [facility] [address] [id number] [address] [place] [address] Sep, [facility] [address] [id number] [address] [place] [address] Sep, Pain in thoracic spine M54.6 [facility] [address] [id number] [address] [place] [address] Sep, [facility] [address] [id number] [address] [place] [address] Aug, Chronic obstructive pulmonar y disease, unspecified J44.9 [facility] [address] [id number] [address] [place] [address] Aug, [facility] [address] [id number] [address] [place] [address] Aug, Pain in thoracic spine M54.6 [facility] [address] [id number] [address] [place] [address] Aug, Encounter for immunization Z 23 [facility] [address] [id number] [address] [place] [address] 14 Jul, 2018 Pain in thoracic spine M54.6 [facility] [address] [id number] [address] [place] [address] Jun, [facility] [address] [id number] [address] [place] [address] Jun, Therapeutic drug monitoring Z51.81 ; Pain in thoracic spine M54.6 and BMI 40.0-44.9, adult Z68.41 [facility] [address] [id number] [address] [place] [address] Jun, [facility] [address] [id number] [address] [place] [address] Jun, Pain in thoracic spine M54.6 [facility] [address] [id number] [address] [place] [address] May, Pain in thoracic spine M54.6 [facility] [address] [id number] [address] [place] [address] May, [facility] [address] [id number] [address] [place] [address] Apr, [facility] [address] [id number] [address] [place] [address] Apr, Pain in thoracic spine M54.6 [facility] [address] [id number] [address] [place] [address] Apr, [facility] [address] [facility] [id number] [address] [place] [address] Apr, Medicare annual wellness vis it, initial Z00.00 ; BMI 40.0-44.9, adult Z68.41 ; Chronic obstructive pulmonary disease, unspecified J44.9 ; Other chronic pain G89.29 and Essential hypertension I10 [facility] [address] [id number] [address] [place] [address] March, Pain in thoracic spine M54.6 [place] [address] [facility] [id number] [address] [place] [address] Feb, Pain in thoracic spine M54.6 [place] [address] [facility] [id number] [address] [place] [address] Feb, Pain in thoracic spine M54.6 ; Other chronic pain G89.29 ; Chronic obstructive pulmonary disease, unspecified J44.9 and Periumbilical hernia K42.9 [place] [address] [facility] [id number] [address] [place] [address] Jan, Pain in thoracic spine M54.6 [place] [address] [facility] [id number] [address] [place] [address] Jan, Chronic obstructive pulmonar y disease, unspecified J44.9 ; Encounter for immunization Z23 ; Screening, lipid Z13.220 ; Renal insufficiency N28.9 ; Pain in thoracic spine M54.6 and Other chronic pain G89.29 [facility] [address] [facility] [id number] [address] [place] [address] Sep, Irritation of right eye H57. 8 [facility] [address] [facility] [id number] [address] [place] [address] May, Chronic obstructive pulmonar y disease, unspecified COPD type J44.9 [facility] [address] [facility] [id number] [address] [place] [address] March, [facility] [address] [facility] [id number] [address] [place] [address] Oct, Medicare annual wellness vis it, subsequent Z00.00 ; Encounter for immunization Z23 and S/P cholecystectomy Z90.49 [facility] [address] [place] [id number] [address] [place] [address] Oct, [facility] [id number] [place] [address] Sep, [facility] [address] [place] [address] Aug, Wheezing R06.2 and Community acquired pneumonia J18.9 [facility] [address] [place] [id number] [address] [place] [address] March, Shoulder fracture, right, wi th routine healing, subsequent encounter S42.91XD [facility] [address] [place] [address] Feb, Shoulder fracture, right S42 .91XA [facility] [address] [address] Feb, Shoulder pain M25.519 [facility] [address] [place] [id number] [address] [place] [address] Feb, [facility] [address] [place] [id number] [address] [place] [address] Feb, Right shoulder pain M25.511 [facility] [address] [place] [address] Feb, [facility] [address] [place] [id number] [address] [place] [address] 15 Jan, 2016 Renal insufficiency N28.9 [facility] [address] [place] [id number] [address] [place] [address] Dec, [facility] [address] [address] 16 Dec, 2015 Bronchitis J40 [facility] [address] [address] Dec, [facility] [address] [address] Dec, [facility] [address] [address] Nov, [facility] [address] [address] Oct, Renal insufficiency N28.9 [facility] [address] [address] Oct, Screening, lipid Z13.220 [place] [address] [address] 10 Oct, 2015 Chronic obstructive pulmonar y disease, unspecified COPD type J44.9 ; Gastroesophageal reflux disease, esophagitis presence not specified K21.9 ; Dysthymia F34.1 and Screening, lipid Z13.220 [facility] [address] [address] Jun, [facility] [address] [address] Jun, Sleep apnea 780.57 and COPD (chronic obstructive pulmonary disease) 496 [facility] [address] [address] Apr, COPD (chronic obstructive pu lmonary disease) 496 [facility] [address] [address] Feb, [facility] [address] [address] Feb, [facility] [address] [address] Nov, [facility] [address] [id number] [address] [place] [address], [place] [address] Nov, [facility] [address] [id number] [address] [place] [address], [place] [address] Nov, [facility] [address] [id number] [address] [place] [address], [place] [address] Nov, [facility] [address] [id number] [address] [place] [address], [place] [address] Oct, [facility] [address] [id number] [address] [place] [address], [place] [address] Oct, [facility] [address] [id number] [address] [place] [address], [place] [address] Oct, [facility] [address] [id number] [address] [place] [address], [place] [address] Oct, [facility] [address] [id number] [address] [place] [address], [place] [address] Oct, [facility] [address] [id number] [address] [place] [address], [place] [address] Oct, [facility] [address] [id number] [address] [place] [address], [place] [address] Oct, [facility] [address] [id number] [address] [place] [address], [place] [address] Oct, [facility] [address] [id number] [address] [place] [address], [place] [address] March, [facility] [address] [id number] [address] [place] [address], [place] [address] March, [facility] [address] [id number] [address] [place] [address], [place] [address] March, [facility] [address] [id number] [address] [place] [address], [place] [address] March, [facility] [address] [id number] [address] [place] [address], [place] [address] Feb, [facility] [address] [id number] [address] [place] [address], [place] [address] Feb, [facility] [address] [id number] [address] [place] [address], [place] [address] Feb, [facility] [address] [id number] [address] [place] [address], [place] [address] Feb, [facility] [address] [id number] [address] [place] [address], [place] [address] Feb, [facility] [address] [id number] [address] [place] [address], [place] [address] Feb, [facility] [address] [id number] [address] [place] [address], [place] [address] Jan, [facility] [address] [id number] [address] [place] [address], [place] [address] Jan, [facility] [address] [id number] [address] [place] [address], [place] [address] Nov, [facility] [address] [id number] [address] [place] [address], [place] [address] Nov, [facility] [address] [id number] [address] [place] [address], [place] [address] Nov, [facility] [address] [id number] [address] [place] [address], [place] [address] Aug, [facility] [address] [id number] [address] [place] [address], [place] [address] Aug, [facility] [address] [id number] [address] [place] [address], [place] [address] Aug, [facility] [address] [id number] [address] [place] [address], [place] [address] Jun, [facility] [address] [id number] [address] [place] [address], [place] [address] Jun, [facility] [address] [id number] [address] [place] [address], [place] [address] Apr, [facility] [address] [id number] [address] [place] [address], [place] [address] Apr, [facility] [address] [id number] [address] [place] [address], [place] [address] March, [facility] [address] [id number] [address] [place] [address], [place] [address] Feb, [facility] [address] [id number] [address] [place] [address], [place] [address] Feb, [facility] [address] [id number] [address] [place] [address], [place] [address] Jan, [facility] [address] [id number] [address] [place] [address], [place] [address] Dec, [facility] [address] [id number] [address] [place] [address], [place] [address] Dec, [facility] [address] [id number] [address] [place] [address], [place] [address] Dec, [facility] [address] [id number] [address] [place] [address], [place] [address] Nov, [facility] [address] [id number] [address] [place] [address], [place] [address] Nov, [facility] [address] [id number] [address] [place] [address], [place] [address] Nov, [facility] [address] [id number] [address] [place] [address], [place] [address] Oct, [facility] [address] [id number] [address] [place] [address], [place] [address] Oct, [facility] [address] [id number] [address] [place] [address], [place] [address] Sep, [facility] [address] [id number] [address] [place] [address], [place] [address] Sep, [facility] [address] [id number] [address] [place] [address], [place] [address] Aug, [facility] [address] [id number] [address] [place] [address], [place] [address] Jul, [facility] [address] [id number] [address] [place] [address], [place] [address] May, [facility] [address] [id number] [address] [place] [address], [place] [address] May, [facility] [address] [id number] [address] [place] [address], [place] [address] March, [facility] [address] [id number] [address] [place] [address], [place] [id number] Nov, [facility] [address] [id number] [address] [place] [address], [place] [id number] Oct, [facility] [address] [id number] [address] [place] [address], [place] [address] Sep, [facility] [address] [id number] [address] [place] [address], [place] [address] Sep, [facility] [address] [id number] [address] [place] [address], [place] [address] Sep, [facility] [address] [id number] [address] [place] [address], [place] [id number] Aug, [facility] [address] [id number] [address] [place] [id number] Aug, [facility] [address] [id number] [address] [place] [address], [place] [address] Oct, [facility] [address] [id number] [address] [place] [address], [place] [address] Oct, [facility] [address] [id number] [address] [place] [address], [place] [address] Oct, [facility] [address] [id number] [address] [place] [id number] Aug, [facility] [address] [facility] [id number] [address] [place] [phone] Aug, [facility] [address] [facility] [id number] [address] [place] [id number] Aug, [facility] [address] [facility] [id number] [address] [place] [id number] Oct, [facility] [address] [facility] [id number] [address] [place] [id number] Sep, [facility] [address] [facility] [id number] [address] [place] [id number] Sep, [facility] [address] [facility] [id number] [address] [place] [id number] Jul, IMMUNIZATIONS No Known Immunizations SOCIAL HISTORY [...]
--- OUTSIDE RECORDS SUMMARY | 2020-04-10 09:02 | XMS REPORT ---
Author Author Aldo JARAMILLO Organization [facility] Address [address] [place] [address] Care Team Providers Care Technical Planner Name Role Phone PATRICIA JARAMILLO Unavailable PROBLEMS Type Condition ICD9-CM Code VVW01-QO Code Onset Dates Condition S tatus SNOMED Code Problem Mammogram declined Z53.20 Active 1 [id number] Problem Tobacco abuse Z72.0 Active 450245 05 Problem Shoulder fracture, right S42.91XA Activ e 36135902 Problem Obstructive sleep apnea syndrome G47.33 Active 68924879 Problem Body mass index (BMI) 45.0-49.9, adult Z68.42 Active 549162545 Problem S/P cholecystectomy Z90.49 Active 172054824 Problem Chronic obstructive pulmonary disease, unspecified J44.9 Active 59877258 Problem Other chronic pain G89.29 Active 8 6970425 Problem Essential hypertension I10 Active 41624468 ALLERGIES No Information ENCOUNTERS Encounter Location Date Diagnosis [place] [id number] [facility] [id number] [address] [place] [address] Jan, Pain in thoracic spine M54.6 [facility] [address] [facility] [id number] [address] [place] [address] Jan, Herpes zoster without compli cation B02.9 [facility] [address] [facility] [id number] [address] [place] [address] Jan, Pain in thoracic spine M54.6 [facility] [address] [facility] [id number] [address] [place] [address] Dec, Pain in thoracic spine M54.6 [facility] [address] [facility] [id number] [address] [place] [address] Dec, [facility] [address] [id number] [address] [place] [id number] 04 Dec, 2019 [facility] [address] [facility] [id number] [address] [place] [address] Nov, Pain in thoracic spine M54.6 [facility] [address] [facility] [id number] [address] [place] [id number] 15 Nov, 2019 Chronic obstructive pulmonar y disease, unspecified J44.9 ; Incisional hernia, without obstruction or gangrene K43.2 ; Other chronic pain G89.29 ; Screening, lipid Z13.220 and Obstructive sleep apnea syndrome G47.33 [place] [address] [facility] [id number] [address] [place] [address] Oct, Pain in thoracic spine M54.6 [place] [address] [facility] [id number] [address] [place] [address] Oct, Pain in thoracic spine M54.6 [place] [address] [facility] [id number] [address] [place] [address] 04 Sep, 2019 Pain in thoracic spine M54.6 [place] [address] [facility] [id number] [address] [place] [id number] 04 Sep, 2019 Encounter for immunization Z 23 [facility] [address] [id number] [address] [place] [address] Aug, Pain in thoracic spine M54.6 [place] [address] [id number] [address] [place] [address] Jul, Pain in thoracic spine M54.6 [place] [address] [id number] [address] [place] [address] Jun, Pain in thoracic spine M54.6 [place] [address] [facility] [id number] [address] [place] [address] Jun, Encounter for Medicare annua l wellness exam Z00.00 ; Chronic obstructive pulmonary disease, unspecified J44.9 ; Essential hypertension I10 ; Other chronic pain G89.29 ; Morbid obesity E66.01 ; Status post arthroscopic knee surgery Z98.890 and Obstructive sleep apnea syndrome G47.33 [facility] [address] [id number] [address] [place] [id number] May, Pain in thoracic spine M54.6 [facility] [address] [id number] [address] [place] [phone] Apr, Pain in thoracic spine M54.6 [facility] [address] [id number] [address] [place] [address] Apr, Acute pain of right knee M25 .561 [facility] [address] [id number] [address] [place] [address] March, Pain in thoracic spine M54.6 [facility] [address] [id number] [address] [place] [id number] March, Right medial knee pain M25.5 61 ; Pain in thoracic spine M54.6 and Morbid obesity E66.01 [facility] [address] [id number] [address] [place] [address] March, Acute pain of right knee M25 .561 and Morbid obesity E66.01 [facility] [address] [id number] [address] [place] [address] Feb, [facility] [address] [id number] [address] [place] [address] Feb, Pain in thoracic spine M54.6 [facility] [address] [id number] [address] [place] [id number] Jan, [facility] [address] [id number] [address] [place] [id number] Jan, Pain in thoracic spine M54.6 [facility] [address] [id number] [address] [place] [address] Dec, Pain in thoracic spine M54.6 [facility] [address] [id number] [address] [place] [address] Dec, Chronic obstructive pulmonar y disease, unspecified J44.9 ; Other chronic pain G89.29 and BMI 40.0-44.9, adult Z68.41 [facility] [address] [id number] [address] [place] [id number] Dec, [facility] [address] [id number] [address] [place] [address] Nov, Pain in thoracic spine M54.6 [facility] [address] [id number] [address] [place] [id number] Nov, [facility] [address] [id number] [address] [place] [id number] Nov, Pain in thoracic spine M54.6 [facility] [address] [id number] [address] [place] [id number] Oct, [facility] [address] [id number] [address] [place] [address] Oct, [facility] [address] [id number] [address] [place] [address] Oct, Pain in thoracic spine M54.6 [facility] [address] [id number] [address] [place] [address] Sep, Pain in thoracic spine M54.6 ; BMI 40.0-44.9, adult Z68.41 and History of tobacco use Z87.891 [facility] [address] [id number] [address] [place] [address] Sep, [facility] [address] [id number] [address] [place] [address] Sep, Pain in thoracic spine M54.6 [facility] [address] [id number] [address] [place] [id number] Sep, [facility] [address] [id number] [address] [place] [address] Aug, Chronic obstructive pulmonar y disease, unspecified J44.9 [facility] [address] [id number] [address] [place] [id number] Aug, [facility] [address] [id number] [address] [place] [address] Aug, Pain in thoracic spine M54.6 [facility] [address] [id number] [address] [place] [id number] Aug, Encounter for immunization Z 23 [facility] [address] [id number] [address] [place] [id number] 14 Jul, 2018 Pain in thoracic spine M54.6 [facility] [address] [id number] [address] [place] [id number] Jun, [facility] [address] [id number] [address] [place] [address] Jun, Therapeutic drug monitoring Z51.81 ; Pain in thoracic spine M54.6 and BMI 40.0-44.9, adult Z68.41 [facility] [address] [id number] [address] [place] [address] Jun, [facility] [address] [id number] [address] [place] [address] Jun, Pain in thoracic spine M54.6 [facility] [address] [id number] [address] [place] [address] May, Pain in thoracic spine M54.6 [facility] [address] [id number] [address] [place] [address] May, [facility] [address] [id number] [address] [place] [id number] Apr, [facility] [address] [id number] [address] [place] [id number] Apr, Pain in thoracic spine M54.6 [facility] [address] [id number] [address] [place] [address] Apr, [facility] [address] [place] [id number] [address] [place] [address] Apr, Medicare annual wellness vis it, initial Z00.00 ; BMI 40.0-44.9, adult Z68.41 ; Chronic obstructive pulmonary disease, unspecified J44.9 ; Other chronic pain G89.29 and Essential hypertension I10 [facility] [address] [facility] [id number] [address] [place] [address] March, Pain in thoracic spine M54.6 [place] [address] [facility] [id number] [address] [place] [address] Feb, Pain in thoracic spine M54.6 [place] [address] [place] [id number] [place] [address] Feb, Pain in thoracic spine M54.6 ; Other chronic pain G89.29 ; Chronic obstructive pulmonary disease, unspecified J44.9 and Periumbilical hernia K42.9 [id number] [place] [id number] [address] [place] [address] Jan, Pain in thoracic spine M54.6 [place] [address] [place] [id number] [place] [address] Jan, Chronic obstructive pulmonar y disease, unspecified J44.9 ; Encounter for immunization Z23 ; Screening, lipid Z13.220 ; Renal insufficiency N28.9 ; Pain in thoracic spine M54.6 and Other chronic pain G89.29 [facility] [address] [place] [id number] [address] [place] [address] Sep, Irritation of right eye H57. 8 [facility] [address] [facility] [id number] [address] [place] [address] May, Chronic obstructive pulmonar y disease, unspecified COPD type J44.9 [facility] [address] [place] [id number] [address] [place] [id number] March, [facility] [address] [place] [id number] [place] [address] Oct, Medicare annual wellness vis it, subsequent Z00.00 ; Encounter for immunization Z23 and S/P cholecystectomy Z90.49 [facility] [address] [address] Oct, [facility] [address] [address] Sep, [facility] [address] [address] Aug, Wheezing R06.2 and Community acquired pneumonia J18.9 [place] [address] [address] March, Shoulder fracture, right, wi th routine healing, subsequent encounter S42.91XD [place] [address] [address] Feb, Shoulder fracture, right S42 .91XA [facility] [address] [address] Feb, Shoulder pain M25.519 [facility] [address] [address] Feb, [facility] [address] [address] Feb, Right shoulder pain M25.511 [facility] [address] [address] Feb, [facility] [address] [address] Jan, Renal insufficiency N28.9 [facility] [address] [address] 18 Dec, 2015 [facility] [address] [place] [id number] [address] [place] [address] Dec, Bronchitis J40 [facility] [address] [place] [id number] [address] [place] [address] Dec, [facility] [address] [address] Dec, [facility] [address] [place] [id number] [place] [address] Nov, [facility] [address] [address] Oct, Renal insufficiency N28.9 [facility] [address] [address] 11 Oct, 2015 Screening, lipid Z13.220 [place] [address] [address] 10 Oct, 2015 Chronic obstructive pulmonar y disease, unspecified COPD type J44.9 ; Gastroesophageal reflux disease, esophagitis presence not specified K21.9 ; Dysthymia F34.1 and Screening, lipid Z13.220 [facility] [address] [address] Jun, [facility] [address] [address] Jun, Sleep apnea 780.57 and COPD (chronic obstructive pulmonary disease) 496 [facility] [address] [address] Apr, COPD (chronic obstructive pu lmonary disease) 496 [facility] [address] [place] [id number] [address] [place] [address] Feb, [facility] [address] [address] Feb, [facility] [address] [address] Nov, [facility] [address] [address] Nov, [facility] [address] [id number] [address] [place] [address], [place] [address] 15 Nov, 2014 [facility] [address] [id number] [address] [place] [address], [place] [address] Nov, [facility] [address] [id number] [address] [place] [address], [place] [address] Oct, [facility] [address] [id number] [address] [place] [address], [place] [address] Oct, [facility] [address] [id number] [address] [place] [address], [place] [address] Oct, [facility] [address] [id number] [address] [place] [address], [place] [address] Oct, [facility] [address] [id number] [address] [place] [address], [place] [address] Oct, [facility] [address] [id number] [address] [place] [address], [place] [address] Oct, [facility] [address] [id number] [address] [place] [address], [place] [address] Oct, [facility] [address] [id number] [address] [place] [address], [place] [address] Oct, [facility] [address] [id number] [address] [place] [address], [place] [address] March, [facility] [address] [id number] [address] [place] [address], [place] [address] March, [facility] [address] [id number] [address] [place] [address], [place] [address] March, [facility] [address] [id number] [address] [place] [address], [place] [address] March, [facility] [address] [id number] [address] [place] [address], [place] [address] Feb, [facility] [address] [id number] [address] [place] [address], [place] [address] Feb, [facility] [address] [id number] [address] [place] [address], [place] [address] Feb, [facility] [address] [id number] [address] [place] [address], [place] [address] Feb, [facility] [address] [id number] [address] [place] [address], [place] [address] Feb, [facility] [address] [id number] [address] [place] [address], [place] [address] Feb, [facility] [address] [id number] [address] [place] [address], [place] [address] Jan, [facility] [address] [id number] [address] [place] [address], [place] [address] Jan, [facility] [address] [id number] [address] [place] [address], [place] [address] Nov, [facility] [address] [id number] [address] [place] [address], [place] [address] Nov, [facility] [address] [id number] [address] [place] [address], [place] [address] Nov, [facility] [address] [id number] [address] [place] [address], [place] [address] Aug, [facility] [address] [id number] [address] [place] [address], [place] [address] Aug, [facility] [address] [id number] [address] [place] [address], [place] [address] Aug, [facility] [address] [id number] [address] [place] [address], [place] [address] Jun, [facility] [address] [id number] [address] [place] [address], [place] [address] Jun, [facility] [address] [id number] [address] [place] [address], [place] [address] Apr, [facility] [address] [id number] [address] [place] [address], [place] [address] Apr, [facility] [address] [id number] [address] [place] [address], [place] [address] March, [facility] [address] [id number] [address] [place] [address], [place] [address] Feb, [facility] [address] [id number] [address] [place] [address], [place] [address] Feb, [facility] [address] [id number] [address] [place] [address], [place] [address] Jan, [facility] [address] [id number] [address] [place] [address], [place] [address] Dec, [facility] [address] [id number] [address] [place] [address], [place] [address] Dec, [facility] [address] [id number] [address] [place] [address], [place] [address] Dec, [facility] [address] [id number] [address] [place] [address], [place] [address] Nov, [facility] [address] [id number] [address] [place] [address], [place] [address] Nov, [facility] [address] [id number] [address] [place] [address], [place] [address] Nov, [facility] [address] [id number] [address] [place] [address], [place] [address] Oct, [facility] [address] [id number] [address] [place] [address], [place] [address] Oct, [facility] [address] [id number] [address] [place] [address], [place] [address] Sep, [facility] [address] [id number] [address] [place] [address], [place] [address] Sep, [facility] [address] [id number] [address] [place] [address], [place] [address] Aug, [facility] [address] [id number] [address] [place] [address], [place] [address] Jul, [facility] [address] [id number] [address] [place] [address], [place] [address] May, [facility] [address] [id number] [address] [place] [address], [place] [address] May, [facility] [address] [id number] [address] [place] [address], [place] [address] March, [facility] [address] [id number] [address] [place] [address], [place] [address] Nov, [facility] [address] [id number] [address] [place] [address], [place] [address] Oct, [facility] [address] [id number] [address] [place] [address], [place] [address] Sep, [facility] [address] [id number] [address] [place] [address], [place] [address] Sep, [facility] [address] [id number] [address] [place] [address], [place] [address] Sep, [facility] [address] [id number] [address] [place] [address], [place] [address] Aug, [facility] [address] [id number] [address] [place] [address], [place] [address] Aug, [facility] [address] [id number] [address] [place] [address], [place] [address] Oct, [facility] [address] [id number] [address] [place] [address], [place] [address] Oct, [facility] [address] [id number] [address] [place] [address], [place] [address] Oct, [facility] [address] [id number] [address] [place] [address], [place] [address] Aug, [facility] [address] [id number] [address] [place] [id number] 14 Aug, 2010 [facility] [address] [facility] [id number] [address] [place] [address] Aug, [facility] [address] [facility] [id number] [address] [place] [phone] Oct, [facility] [address] [facility] [id number] [address] [place] [phone] Sep, [facility] [address] [facility] [id number] [address] [place] [phone] Sep, [facility] [address] [facility] [id number] [address] [place] [phone] Jul, IMMUNIZATIONS No Known Immunizations SOCIAL HISTORY Never Assessed REASON FOR VISIT PLAN OF CARE VITAL SIGNS Height 66 in 2013-11-30 Weight 196.4 lbs 2013-11-30 Temperature 98.6 degrees Fahrenheit 2013-11-30 Heart Rate 106 bpm 2013-11-30 Respiratory Rate 22 2013-11-30 Blood pressure systolic 120 mmHg 2013-11-30 Blood pressure diastolic 78 mmHg 2013-11-30 MEDICATIONS Unknown Medications RESULTS No Results PROCEDURES Procedure Date Ordered Result Body Site THER/PROPH/DIAG INJ, SC/IM Nov 30, 2013 INJ METHYLPRDNISLN SODIM TO 125 MG Nov 30, 2013 MEASURE BLOOD OXYGEN LEVEL Nov 30, 2013 INFLUENZA ASSAY W/OPTIC Nov 30, 2013 INSTRUCTIONS MEDICATIONS ADMINISTERED No Known Medications MEDICAL (GENERAL) HISTORY Type Description Date Medical History sleep apnea Medical History emphysema Medical History heartburn Medical History broken back in two place Medical History broken right shoulder Medical History knee surgery Surgical History x 3 Surgical History gallbladder Surgical History knee surgery- rt knee 06/06/2019 Hospitalization History surgery
--- OUTSIDE RECORDS SUMMARY | 2020-04-10 09:02 | XMS REPORT ---
Author Author Aldo JARAMILLO Organization [facility] Address [address] [place] [address] Care Team Providers Care Electrical Engineering Director Name Role Phone PATRICIA JARAMILLO Unavailable PROBLEMS Type Condition ICD9-CM Code CPH34-MU Code Onset Dates Condition S tatus SNOMED Code Problem Mammogram declined Z53.20 Active 1 [id number] Problem Tobacco abuse Z72.0 Active 922866 05 Problem Shoulder fracture, right S42.91XA Activ e 47782398 Problem Obstructive sleep apnea syndrome G47.33 Active 33406670 Problem Body mass index (BMI) 45.0-49.9, adult Z68.42 Active 813808564 Problem S/P cholecystectomy Z90.49 Active 200439816 Problem Chronic obstructive pulmonary disease, unspecified J44.9 Active 55118274 Problem Other chronic pain G89.29 Active 8 3513487 Problem Essential hypertension I10 Active 75970790 ALLERGIES No Information ENCOUNTERS Encounter Location Date Diagnosis [facility] [address] [facility] [id number] [address] [place] [address] Jan, Herpes zoster without compli cation B02.9 [facility] [address] [facility] [id number] [address] [place] [id number] Jan, Pain in thoracic spine M54.6 [facility] [address] [facility] [id number] [address] [place] [address] Dec, Pain in thoracic spine M54.6 [facility] [address] [facility] [id number] [address] [place] [address] Dec, [facility] [address] [facility] [id number] [address] [place] [address] Dec, [facility] [address] [id number] [address] [place] [address] 29 Nov, 2019 Pain in thoracic spine M54.6 [facility] [address] [facility] [id number] [address] [place] [address] 15 Nov, 2019 Chronic obstructive pulmonar y disease, unspecified J44.9 ; Incisional hernia, without obstruction or gangrene K43.2 ; Other chronic pain G89.29 ; Screening, lipid Z13.220 and Obstructive sleep apnea syndrome G47.33 [facility] [address] [id number] [address] [place] [address] Oct, Pain in thoracic spine M54.6 [place] [address] [facility] [id number] [address] [place] [address] Oct, Pain in thoracic spine M54.6 [place] [address] [facility] [id number] [address] [place] [address] Sep, Pain in thoracic spine M54.6 [facility] [address] [facility] [id number] [address] [place] [address] 04 Sep, 2019 Encounter for immunization Z 23 [facility] [address] [facility] [id number] [address] [place] [phone] 08 Aug, 2019 Pain in thoracic spine M54.6 [facility] [address] [facility] [id number] [address] [place] [address] 09 Jul, 2019 Pain in thoracic spine M54.6 [facility] [address] [facility] [id number] [address] [place] [address] Jun, Pain in thoracic spine M54.6 [facility] [address] [facility] [id number] [address] [place] [address] 14 Jun, 2019 Encounter for Medicare annua l wellness exam Z00.00 ; Chronic obstructive pulmonary disease, unspecified J44.9 ; Essential hypertension I10 ; Other chronic pain G89.29 ; Morbid obesity E66.01 ; Status post arthroscopic knee surgery Z98.890 and Obstructive sleep apnea syndrome G47.33 [facility] [address] [id number] [address] [place] [address] May, Pain in thoracic spine M54.6 [facility] [address] [id number] [address] [place] [address] Apr, Pain in thoracic spine M54.6 [facility] [address] [id number] [address] [place] [address] Apr, Acute pain of right knee M25 .561 [facility] [address] [id number] [address] [place] [address] March, Pain in thoracic spine M54.6 [facility] [address] [id number] [address] [place] [address] March, Right medial knee pain M25.5 61 ; Pain in thoracic spine M54.6 and Morbid obesity E66.01 [facility] [address] [id number] [address] [place] [address] March, Acute pain of right knee M25 .561 and Morbid obesity E66.01 [facility] [address] [id number] [address] [place] [address] Feb, [facility] [address] [id number] [address] [place] [address] Feb, Pain in thoracic spine M54.6 [facility] [address] [id number] [address] [place] [address] Jan, [facility] [address] [id number] [address] [place] [address] Jan, Pain in thoracic spine M54.6 [facility] [address] [id number] [address] [place] [address] Dec, Pain in thoracic spine M54.6 [facility] [address] [id number] [address] [place] [address] Dec, Chronic obstructive pulmonar y disease, unspecified J44.9 ; Other chronic pain G89.29 and BMI 40.0-44.9, adult Z68.41 [facility] [address] [id number] [address] [place] [address] Dec, [facility] [address] [id number] [address] [place] [address] Nov, Pain in thoracic spine M54.6 [facility] [address] [id number] [address] [place] [address] Nov, [facility] [address] [id number] [address] [place] [address] Nov, Pain in thoracic spine M54.6 [facility] [address] [id number] [address] [place] [address] Oct, [facility] [address] [id number] [address] [place] [address] Oct, [facility] [address] [id number] [address] [place] [address] Oct, Pain in thoracic spine M54.6 [facility] [address] [id number] [address] [place] [address] Sep, Pain in thoracic spine M54.6 ; BMI 40.0-44.9, adult Z68.41 and History of tobacco use Z87.891 [facility] [address] [id number] [address] [place] [address] Sep, [facility] [address] [id number] [address] [place] [address] Sep, Pain in thoracic spine M54.6 [facility] [address] [id number] [address] [place] [address] Sep, [facility] [address] [id number] [address] [place] [address] Aug, Chronic obstructive pulmonar y disease, unspecified J44.9 [facility] [address] [id number] [address] [place] [address] Aug, [facility] [address] [id number] [address] [place] [address] Aug, Pain in thoracic spine M54.6 [facility] [address] [id number] [address] [place] [address] 02 Aug, 2018 Encounter for immunization Z 23 [facility] [address] [id number] [address] [place] [id number] 14 Jul, 2018 Pain in thoracic spine M54.6 [facility] [address] [id number] [address] [place] [address] Jun, [facility] [address] [id number] [address] [place] [address] Jun, Therapeutic drug monitoring Z51.81 ; Pain in thoracic spine M54.6 and BMI 40.0-44.9, adult Z68.41 [facility] [address] [id number] [address] [place] [address] Jun, [facility] [address] [id number] [address] [place] [address] Jun, Pain in thoracic spine M54.6 [facility] [address] [id number] [address] [place] [address] May, Pain in thoracic spine M54.6 [facility] [address] [id number] [address] [place] [address] May, [facility] [address] [id number] [address] [place] [address] Apr, [facility] [address] [id number] [address] [place] [address] Apr, Pain in thoracic spine M54.6 [facility] [address] [id number] [address] [place] [address] Apr, [facility] [address] [id number] [address] [place] [address] Apr, Medicare annual wellness vis it, initial Z00.00 ; BMI 40.0-44.9, adult Z68.41 ; Chronic obstructive pulmonary disease, unspecified J44.9 ; Other chronic pain G89.29 and Essential hypertension I10 [facility] [address] [place] [id number] [place] [address] March, Pain in thoracic spine M54.6 [place] [address] [address] Feb, Pain in thoracic spine M54.6 [place] [address] [place] [id number] [place] [address] Feb, Pain in thoracic spine M54.6 ; Other chronic pain G89.29 ; Chronic obstructive pulmonary disease, unspecified J44.9 and Periumbilical hernia K42.9 [place] [address] [place] [id number] [place] [address] Jan, Pain in thoracic spine M54.6 [place] [address] [address] Jan, Chronic obstructive pulmonar y disease, unspecified J44.9 ; Encounter for immunization Z23 ; Screening, lipid Z13.220 ; Renal insufficiency N28.9 ; Pain in thoracic spine M54.6 and Other chronic pain G89.29 [facility] [address] [place] [id number] [address] [place] [address] Sep, Irritation of right eye H57. 8 [facility] [address] [place] [id number] [place] [address] May, Chronic obstructive pulmonar y disease, unspecified COPD type J44.9 [place] [address] [place] [id number] [place] [address] March, [place] [address] [place] [id number] [place] [address] Oct, Medicare annual wellness vis it, subsequent Z00.00 ; Encounter for immunization Z23 and S/P cholecystectomy Z90.49 [facility] [address] [place] [id number] [address] [place] [address] Oct, [facility] [address] [address] Sep, [facility] [address] [place] [id number] [place] [address] Aug, Wheezing R06.2 and Community acquired pneumonia J18.9 [facility] [address] [address] March, Shoulder fracture, right, wi th routine healing, subsequent encounter S42.91XD [place] [address] [address] Feb, Shoulder fracture, right S42 .91XA [facility] [address] [address] Feb, Shoulder pain M25.519 [facility] [address] [address] Feb, [facility] [address] [address] Feb, Right shoulder pain M25.511 [facility] [address] [address] Feb, [facility] [address] [address] 15 Jan, 2016 Renal insufficiency N28.9 [facility] [address] [place] [id number] [address] [place] [address] Dec, [facility] [address] [address] Dec, Bronchitis J40 [facility] [address] [address] Dec, [facility] [address] [place] [address] Dec, [facility] [address] [place] [id number] [address] [place] [address] Nov, [facility] [address] [address] Oct, Renal insufficiency N28.9 [facility] [address] [address] Oct, Screening, lipid Z13.220 [facility] [address] [address] 10 Oct, 2015 Chronic obstructive pulmonar y disease, unspecified COPD type J44.9 ; Gastroesophageal reflux disease, esophagitis presence not specified K21.9 ; Dysthymia F34.1 and Screening, lipid Z13.220 [facility] [address] [address] Jun, [facility] [address] [address] Jun, Sleep apnea 780.57 and COPD (chronic obstructive pulmonary disease) 496 [facility] [address] [address] Apr, COPD (chronic obstructive pu lmonary disease) 496 [facility] [address] [place] [id number] [address] [place] [address] Feb, [facility] [address] [place] [id number] [address] [place] [address] Feb, [facility] [address] [place] [id number] [address] [place] [address] Nov, [facility] [address] [place] [id number] [place] [address] Nov, [facility] [address] [place] [id number] [address] [place] [address] Nov, [facility] [address] [place] [address] Nov, [facility] [address] [id number] [address] [place] [address], [place] [address] Oct, [facility] [address] [id number] [address] [place] [address], [place] [address] Oct, [facility] [address] [id number] [address] [place] [address], [place] [address] Oct, [facility] [address] [id number] [address] [place] [address], [place] [address] Oct, [facility] [address] [id number] [address] [place] [address], [place] [address] Oct, [facility] [address] [id number] [address] [place] [address], [place] [address] Oct, [facility] [address] [id number] [address] [place] [address], [place] [address] Oct, [facility] [address] [id number] [address] [place] [address], [place] [address] Oct, [facility] [address] [id number] [address] [place] [address], [place] [address] March, [facility] [address] [id number] [address] [place] [address], [place] [address] March, [facility] [address] [id number] [address] [place] [address], [place] [address] March, [facility] [address] [id number] [address] [place] [address], [place] [address] March, [facility] [address] [id number] [address] [place] [address], [place] [address] Feb, [facility] [address] [id number] [address] [place] [address], [place] [address] Feb, [facility] [address] [id number] [address] [place] [address], [place] [address] Feb, [facility] [address] [id number] [address] [place] [address], [place] [address] Feb, [facility] [address] [id number] [address] [place] [address], [place] [address] Feb, [facility] [address] [id number] [address] [place] [address], [place] [address] Feb, [facility] [address] [id number] [address] [place] [address], [place] [address] Jan, [facility] [address] [id number] [address] [place] [address], [place] [address] Jan, [facility] [address] [id number] [address] [place] [address], [place] [address] Nov, [facility] [address] [id number] [address] [place] [address], [place] [address] Nov, [facility] [address] [id number] [address] [place] [address], [place] [address] Nov, [facility] [address] [id number] [address] [place] [address], [place] [address] Aug, [facility] [address] [id number] [address] [place] [address], [place] [address] Aug, [facility] [address] [id number] [address] [place] [address], [place] [address] Aug, [facility] [address] [id number] [address] [place] [address], [place] [address] Jun, [facility] [address] [id number] [address] [place] [address], [place] [address] Jun, [facility] [address] [id number] [address] [place] [address], [place] [address] Apr, [facility] [address] [id number] [address] [place] [address], [place] [address] Apr, [facility] [address] [id number] [address] [place] [address], [place] [address] March, [facility] [address] [id number] [address] [place] [address], [place] [address] Feb, [facility] [address] [id number] [address] [place] [address], [place] [address] Feb, [facility] [address] [id number] [address] [place] [address], [place] [address] Jan, [facility] [address] [id number] [address] [place] [address], [place] [address] Dec, [facility] [address] [id number] [address] [place] [address], [place] [address] Dec, [facility] [address] [id number] [address] [place] [address], [place] [address] Dec, [facility] [address] [id number] [address] [place] [address], [place] [address] Nov, [facility] [address] [id number] [address] [place] [address], [place] [address] Nov, [facility] [address] [id number] [address] [place] [address], [place] [address] Nov, [facility] [address] [id number] [address] [place] [address], [place] [address] Oct, [facility] [address] [id number] [address] [place] [address], [place] [address] Oct, [facility] [address] [id number] [address] [place] [address], [place] [address] Sep, [facility] [address] [id number] [address] [place] [address], [place] [address] Sep, [facility] [address] [id number] [address] [place] [address], [place] [address] Aug, [facility] [address] [id number] [address] [place] [address], [place] [address] Jul, [facility] [address] [id number] [address] [place] [address], [place] [address] May, [facility] [address] [id number] [address] [place] [address], [place] [address] May, [facility] [place] [facility] [address] [id number] [address] [place] [address], [place] [address] March, [facility] [address] [id number] [address] [place] [address], [place] [address] Nov, [facility] [address] [id number] [address] [place] [address], [place] [address] Oct, [facility] [address] [id number] [address] [place] [address], [place] [address] Sep, [facility] [address] [id number] [address] [place] [address], [place] [address] Sep, [facility] [address] [id number] [address] [place] [address], [place] [address] Sep, [facility] [address] [id number] [address] [place] [address], [place] [address] Aug, [facility] [address] [id number] [address] [place] [address], [place] [address] Aug, [facility] [address] [id number] [address] [place] [address], [place] [address] Oct, [facility] [address] [id number] [address] [place] [address], [place] [address] 16 Oct, 2010 [facility] [address] [id number] [address] [place] [address], [place] [address] 16 Oct, 2010 [facility] [address] [id number] [address] [place] [address], [place] [address] 18 Aug, 2010 [facility] [address] [id number] [address] [place] [address], [place] [id number] 14 Aug, 2010 [facility] [address] [id number] [address] [place] [address], [place] [address] Aug, [facility] [address] [facility] [id number] [address] [place] [id number] Oct, [facility] [address] [facility] [id number] [address] [place] [id number] Sep, [facility] [address] [facility] [id number] [address] [place] [id number] Sep, [facility] [address] [facility] [id number] [address] [place] [id number] Jul, IMMUNIZATIONS No Known Immunizations SOCIAL HISTORY Never Assessed REASON FOR VISIT [facility] call PLAN OF CARE VITAL SIGNS MEDICATIONS No [...]
[2020-04-10] MEDS: LACTATED RINGERS 1,000 ML IV PRN ×3 (09:03→12:31)
--- OUTSIDE RECORDS SUMMARY | 2020-04-10 09:03 | XMS REPORT ---
Author Author Aldo JARAMILLO Organization [facility] Address [address] [place] [address] Care Team Providers Care Strategic Consultant Name Role Phone PATRICIA JARAMILLO Unavailable PROBLEMS Type Condition ICD9-CM Code JBZ83-TH Code Onset Dates Condition S tatus SNOMED Code Problem Mammogram declined Z53.20 Active 1 [id number] Problem Tobacco abuse Z72.0 Active 005844 05 Problem Shoulder fracture, right S42.91XA Activ e 31638547 Problem Obstructive sleep apnea syndrome G47.33 Active 47536851 Problem Body mass index (BMI) 45.0-49.9, adult Z68.42 Active 371730062 Problem S/P cholecystectomy Z90.49 Active 014494601 Problem Chronic obstructive pulmonary disease, unspecified J44.9 Active 87944568 Problem Other chronic pain G89.29 Active 8 0804121 Problem Essential hypertension I10 Active 02871825 ALLERGIES No Information ENCOUNTERS Encounter Location Date Diagnosis [place] [address] [address] 06 Dec, 2019 [place] [address] [address] Dec, [address] [address] Nov, Pain in thoracic spine M54.6 [place] [address] [address] 15 Nov, 2019 Chronic obstructive pulmonary disease, u nspecified J44.9 ; Incisional hernia, without obstruction or gangrene K43.2 ; Other chronic pain G89.29 ; Screening, lipid Z13.220 and Obstructive sleep apnea syndrome G47.33 [place] [address] [address] Oct, Pain in thoracic spine M54.6 [facility] [address] [id number] [place] [address] Oct, Pain in thoracic spine M54.6 [facility] [address] [id number] [place] [address] Sep, Pain in thoracic spine M54.6 [facility] [address] [id number] [place] [address] Sep, Encounter for immunization Z23 [facility] [address] [place] [id number] [place] [address] Aug, Pain in thoracic spine M54.6 [facility] [address] [place] [id number] [place] [address] Jul, Pain in thoracic spine M54.6 [facility] [address] [id number] [place] [address] Jun, Pain in thoracic spine M54.6 [facility] [address] [place] [id number] [place] [address] Jun, Encounter for Medicare annual wellness e xam Z00.00 ; Chronic obstructive pulmonary disease, unspecified J44.9 ; Essential hypertension I10 ; Other chronic pain G89.29 ; Morbid obesity E66.01 ; Status post arthroscopic knee surgery Z98.890 and Obstructive sleep apnea syndrome G47.33 [facility] [address] [id number] [place] [address] May, Pain in thoracic spine M54.6 [facility] [address] [id number] [place] [address] Apr, Pain in thoracic spine M54.6 [facility] [address] [id number] [place] [address] Apr, Acute pain of right knee M25.561 [facility] [address] [id number] [place] [address] March, Pain in thoracic spine M54.6 [facility] [address] [place] [address] [id number] [place] [address] March, Right medial knee pain M25.561 ; Pain in thoracic spine M54.6 and Morbid obesity E66.01 [facility] [address] [facility] [id number] [address] [place] [address] March, Acute pain of right knee M25 .561 and Morbid obesity E66.01 [facility] [address] [place] [id number] [place] [address] Feb, [facility] [address] [address] Feb, Pain in thoracic spine M54.6 [facility] [address] [address] Jan, [facility] [address] [address] Jan, Pain in thoracic spine M54.6 [facility] [address] [address] Dec, Pain in thoracic spine M54.6 [facility] [address] [place] [id number] [place] [address] Dec, Chronic obstructive pulmonary disease, u nspecified J44.9 ; Other chronic pain G89.29 and BMI 40.0-44.9, adult Z68.41 [facility] [address] [place] [id number] [place] [address] Dec, [facility] [address] [address] Nov, Pain in thoracic spine M54.6 [facility] [address] [place] [id number] [place] [address] Nov, [facility] [address] [address] Nov, Pain in thoracic spine M54.6 [facility] [address] [address] Oct, [facility] [address] [address] Oct, [facility] [address] [address] Oct, Pain in thoracic spine M54.6 [facility] [address] [address] Sep, Pain in thoracic spine M54.6 ; BMI 40.0- 44.9, adult Z68.41 and History of tobacco use Z87.891 [facility] [address] [address] Sep, [facility] [address] [address] Sep, Pain in thoracic spine M54.6 [facility] [address] [address] Sep, [facility] [address] [address] Aug, Chronic obstructive pulmonary disease, u nspecified J44.9 [facility] [address] [address] Aug, [facility] [address] [address] Aug, Pain in thoracic spine M54.6 [facility] [address] [address] Aug, Encounter for immunization Z23 [facility] [address] [address] Jul, Pain in thoracic spine M54.6 [facility] [address] [address] Jun, [facility] [address] [address] Jun, Therapeutic drug monitoring Z51.81 ; Shayy n in thoracic spine M54.6 and BMI 40.0-44.9, adult Z68.41 [facility] [address] [address] Jun, [facility] [address] [address] Jun, Pain in thoracic spine M54.6 [facility] [address] [address] May, Pain in thoracic spine M54.6 [facility] [address] [address] May, [facility] [address] [address] Apr, [facility] [address] [address] Apr, Pain in thoracic spine M54.6 [facility] [address] [address] Apr, [facility] [address] [address] Apr, Medicare annual wellness visit, initial Z00.00 ; BMI 40.0-44.9, adult Z68.41 ; Chronic obstructive pulmonary disease, unspecified J44.9 ; Other chronic pain G89.29 and Essential hypertension I10 [facility] [address] [address] March, Pain in thoracic spine M54.6 [facility] [address] [address] Feb, Pain in thoracic spine M54.6 [facility] [address] [address] Feb, Pain in thoracic spine M54.6 ; Other chr onic pain G89.29 ; Chronic obstructive pulmonary disease, unspecified J44.9 and Periumbilical hernia K42.9 [facility] [address] [address] Jan, Pain in thoracic spine M54.6 [place] [address] [address] Jan, Chronic obstructive pulmonary disease, u nspecified J44.9 ; Encounter for immunization Z23 ; Screening, lipid Z13.220 ; Renal insufficiency N28.9 ; Pain in thoracic spine M54.6 and Other chronic pain G89.29 [facility] [address] [place] [id number] [place] [address] Sep, Irritation of right eye H57. 8 [place] [address] [address] May, Chronic obstructive pulmonary disease, u nspecified COPD type J44.9 [place] [address] [address] March, [place] [address] [address] Oct, Medicare annual wellness visit, subseque nt Z00.00 ; Encounter for immunization Z23 and S/P cholecystectomy Z90.49 [place] [address] [address] Oct, [place] [address] [address] Sep, [facility] [place] [id number] [place] [address] Aug, Wheezing R06.2 and Community acquired pneumonia J18.9 [place] [address] [address] March, Shoulder fracture, right, with routine h ealing, subsequent encounter S42.91XD [address] [address] Feb, Shoulder fracture, right S42.91XA [place] [address] [address] Feb, Shoulder pain M25.519 [facility] [address] [place], [place] [id number] [place] [address] 11 Feb, 2016 [facility] [address] [facility] [id number] [place] [address] 09 Feb, 2016 Right shoulder pain M25.511 [facility] [address] [address] 08 Feb, 2016 [facility] [address] [address] Jan, Renal insufficiency N28.9 [facility] [address] [address] Dec, [facility] [address] [address] Dec, Bronchitis J40 [facility] [address] [address] Dec, [facility] [address] [address] Dec, [facility] [address] [address] Nov, [facility] [address] [address] Oct, Renal insufficiency N28.9 [facility] [address] [address] Oct, Screening, lipid Z13.220 [facility] [address] [address] Oct, Chronic obstructive pulmonary disease, u nspecified COPD type J44.9 ; Gastroesophageal reflux disease, esophagitis presence not specified K21.9 ; Dysthymia F34.1 and Screening, lipid Z13.220 [facility] [address] [address] Jun, [facility] [address] [address] Jun, Sleep apnea 780.57 and COPD (chronic obs tructive pulmonary disease) [facility] [address] [id number] [place] [address] Apr, COPD (chronic obstructive pulmonary dise ase) [address] [facility] [address] [place] [id number] [place] [address] 14 Feb, 2015 [facility] [id number] [place] [address] Feb, [facility] [address] [place] [address] [id number] [place] [address] Nov, [facility] [address] [place] [id number] [place] [address] Nov, [facility] [address] [place] [id number] [place] [address] Nov, [facility] [address] [place] [address] [id number] [place] [address] Nov, [facility] [address] [place] [id number] [place] [address] Oct, [facility] [address] [place] [id number] [place] [address] Oct, [facility] [address] [place] [id number] [place] [address] Oct, [facility] [address] [place] [id number] [place] [address] Oct, [facility] [address] [place] [id number] [place] [address] Oct, [facility] [address] [place] [address] [id number] [place] [address] Oct, [facility] [address] [place] [id number] [place] [address] Oct, [facility] [address] [place] [id number] [place] [address] Oct, [facility] [address] [id number] [place] [address] March, [facility] [address] [id number] [place] [address] March, [facility] [address] [id number] [place] [address] March, [facility] [address] [id number] [place] [address] March, [facility] [address] [id number] [place] [address] Feb, [facility] [address] [id number] [place] [address] Feb, [facility] [address] [id number] [place] [address] Feb, [facility] [address] [id number] [place] [address] Feb, [facility] [address] [id number] [place] [address] Feb, [facility] [address] [id number] [place] [address] Feb, [facility] [address] [id number] [place] [address] Jan, [facility] [address] [id number] [place] [address] Jan, [facility] [address] [id number] [place] [address] Nov, [facility] [address] [id number] [place] [address] Nov, [facility] [address] [id number] [place] [address] Nov, [facility] [address] [id number] [place] [address] Aug, [facility] [address] [id number] [place] [address] Aug, [facility] [address] [id number] [place] [address] Aug, [facility] [address] [id number] [place] [address] Jun, [facility] [address] [id number] [place] [address] Jun, [facility] [address] [id number] [place] [address] Apr, [facility] [address] [id number] [place] [address] Apr, [facility] [address] [id number] [place] [address] March, [facility] [address] [id number] [place] [address] Feb, [facility] [address] [id number] [place] [address] Feb, [facility] [address] [id number] [place] [address] Jan, [facility] [address] [id number] [place] [address] Dec, [facility] [address] [id number] [place] [address] Dec, [facility] [address] [id number] [place] [address] Dec, [facility] [address] [id number] [place] [address] Nov, [facility] [address] [id number] [place] [address] Nov, [facility] [address] [id number] [place] [address] Nov, [facility] [address] [id number] [place] [address] Oct, [facility] [address] [id number] [place] [address] Oct, [facility] [address] [id number] [place] [address] Sep, [facility] [address] [id number] [place] [address] Sep, [facility] [address] [id number] [place] [address] Aug, [facility] [address] [id number] [place] [address] Jul, [facility] [address] [id number] [place] [address] May, [facility] [address] [id number] [place] [address] May, [facility] [address] [id number] [place] [address] March, [facility] [address] [id number] [place] [address] Nov, [facility] [address] [id number] [place] [address] Oct, [facility] [address] [id number] [place] [address] Sep, [facility] [address] [id number] [place] [address] Sep, [facility] [address] [id number] [place] [address] Sep, [facility] [address] [id number] [place] [address] Aug, [facility] [address] [id number] [place] [address] Aug, [facility] [address] [id number] [place] [address] Oct, [facility] [address] [id number] [place] [address] Oct, [facility] [address] [id number] [place] [address] Oct, [facility] [address] [id number] [place] [address] 18 Aug, 2010 [facility] [address] [id number] [place] [address] Aug, [facility] [address] [id number] [place] [address] Aug, [facility] [address] [id number] [place] [address] Oct, [facility] [address] [id number] [place] [address] Sep, [facility] [address] [id number] [place] [address] Sep, [facility] [address] [id number] [place] [address] Jul, IMMUNIZATIONS No Known Immunizations SOCIAL HISTORY Never Assessed REASON FOR VISIT PLAN OF CARE VITAL SIGNS Height 66 in 2014-03-13 Weight 199.3 lbs 2014-03-13 Temperature 98.4 degrees Fahrenheit 2014-03-13 Heart Rate 88 bpm 2014-03-13 Respiratory Rate 22 2014-03-13 Blood pressure systolic 142 mmHg 2014-03-13 Blood pressure diastolic 80 mmHg 2014-03-13 MEDICATIONS Unknown Medications RESULTS No Results PROCEDURES [...]
--- OUTSIDE RECORDS SUMMARY | 2020-04-10 09:03 | XMS REPORT ---
Author Author Aldo JARAMILLO Organization [facility] Address [address] [place] [address] Care Team Providers Care Seam Finisher Name Role Phone PATRICIA JARAMILLO Unavailable PROBLEMS Type Condition ICD9-CM Code MJY93-CI Code Onset Dates Condition S tatus SNOMED Code Problem Mammogram declined Z53.20 Active 1 [id number] Problem Tobacco abuse Z72.0 Active 605419 05 Problem Shoulder fracture, right S42.91XA Activ e 20166388 Problem Obstructive sleep apnea syndrome G47.33 Active 17460788 Problem Body mass index (BMI) 45.0-49.9, adult Z68.42 Active 914155259 Problem S/P cholecystectomy Z90.49 Active 637847289 Problem Chronic obstructive pulmonary disease, unspecified J44.9 Active 61339064 Problem Other chronic pain G89.29 Active 8 6618916 Problem Essential hypertension I10 Active 77044818 ALLERGIES No Information ENCOUNTERS Encounter Location Date Diagnosis [place] [address] [address] 06 Dec, 2019 [place] [address] [address] Dec, [address] [address] Nov, Pain in thoracic spine M54.6 [place] [address] [address] 15 Nov, 2019 Chronic obstructive pulmonary disease, u nspecified J44.9 ; Incisional hernia, without obstruction or gangrene K43.2 ; Other chronic pain G89.29 ; Screening, lipid Z13.220 and Obstructive sleep apnea syndrome G47.33 [place] [address] [address] Oct, Pain in thoracic spine M54.6 [facility] [address] [id number] [place] [address] Oct, Pain in thoracic spine M54.6 [facility] [address] [id number] [place] [address] Sep, Pain in thoracic spine M54.6 [facility] [address] [id number] [place] [address] Sep, Encounter for immunization Z23 [facility] [address] [place] [id number] [place] [address] Aug, Pain in thoracic spine M54.6 [facility] [address] [place] [id number] [place] [address] Jul, Pain in thoracic spine M54.6 [facility] [address] [id number] [place] [address] Jun, Pain in thoracic spine M54.6 [facility] [address] [place] [id number] [place] [address] Jun, Encounter for Medicare annual wellness e xam Z00.00 ; Chronic obstructive pulmonary disease, unspecified J44.9 ; Essential hypertension I10 ; Other chronic pain G89.29 ; Morbid obesity E66.01 ; Status post arthroscopic knee surgery Z98.890 and Obstructive sleep apnea syndrome G47.33 [facility] [address] [id number] [place] [address] May, Pain in thoracic spine M54.6 [facility] [address] [id number] [place] [address] Apr, Pain in thoracic spine M54.6 [facility] [address] [id number] [place] [address] Apr, Acute pain of right knee M25.561 [facility] [address] [id number] [place] [address] March, Pain in thoracic spine M54.6 [facility] [address] [place] [id number] [place] [address] March, Right medial knee pain M25.561 ; Pain in thoracic spine M54.6 and Morbid obesity E66.01 [facility] [address] [facility] [id number] [address] [place] [address] March, Acute pain of right knee M25 .561 and Morbid obesity E66.01 [facility] [address] [place] [id number] [place] [address] Feb, [facility] [address] [address] Feb, Pain in thoracic spine M54.6 [facility] [address] [address] Jan, [facility] [address] [address] Jan, Pain in thoracic spine M54.6 [facility] [address] [address] Dec, Pain in thoracic spine M54.6 [facility] [address] [place] [id number] [place] [address] Dec, Chronic obstructive pulmonary disease, u nspecified J44.9 ; Other chronic pain G89.29 and BMI 40.0-44.9, adult Z68.41 [facility] [address] [place] [id number] [place] [address] Dec, [facility] [address] [address] Nov, Pain in thoracic spine M54.6 [facility] [address] [place] [id number] [place] [address] Nov, [facility] [address] [address] Nov, Pain in thoracic spine M54.6 [facility] [address] [address] Oct, [facility] [address] [address] Oct, [facility] [address] [address] Oct, Pain in thoracic spine M54.6 [facility] [address] [address] Sep, Pain in thoracic spine M54.6 ; BMI 40.0- 44.9, adult Z68.41 and History of tobacco use Z87.891 [facility] [address] [address] Sep, [facility] [address] [address] Sep, Pain in thoracic spine M54.6 [facility] [address] [address] Sep, [facility] [address] [address] Aug, Chronic obstructive pulmonary disease, u nspecified J44.9 [facility] [address] [address] Aug, [facility] [address] [address] Aug, Pain in thoracic spine M54.6 [facility] [address] [address] Aug, Encounter for immunization Z23 [facility] [address] [address] Jul, Pain in thoracic spine M54.6 [facility] [address] [address] Jun, [facility] [address] [address] Jun, Therapeutic drug monitoring Z51.81 ; Shayy n in thoracic spine M54.6 and BMI 40.0-44.9, adult Z68.41 [facility] [address] [address] Jun, [facility] [address] [address] Jun, Pain in thoracic spine M54.6 [facility] [address] [address] May, Pain in thoracic spine M54.6 [facility] [address] [address] May, [facility] [address] [address] Apr, [facility] [address] [address] Apr, Pain in thoracic spine M54.6 [facility] [address] [address] Apr, [facility] [address] [address] Apr, Medicare annual wellness visit, initial Z00.00 ; BMI 40.0-44.9, adult Z68.41 ; Chronic obstructive pulmonary disease, unspecified J44.9 ; Other chronic pain G89.29 and Essential hypertension I10 [facility] [address] [address] March, Pain in thoracic spine M54.6 [facility] [address] [address] Feb, Pain in thoracic spine M54.6 [facility] [address] [address] Feb, Pain in thoracic spine M54.6 ; Other chr onic pain G89.29 ; Chronic obstructive pulmonary disease, unspecified J44.9 and Periumbilical hernia K42.9 [facility] [address] [address] Jan, Pain in thoracic spine M54.6 [place] [address] [address] Jan, Chronic obstructive pulmonary disease, u nspecified J44.9 ; Encounter for immunization Z23 ; Screening, lipid Z13.220 ; Renal insufficiency N28.9 ; Pain in thoracic spine M54.6 and Other chronic pain G89.29 [facility] [address] [place] [id number] [place] [address] Sep, Irritation of right eye H57. 8 [place] [address] [address] May, Chronic obstructive pulmonary disease, u nspecified COPD type J44.9 [place] [address] [address] March, [place] [address] [address] Oct, Medicare annual wellness visit, subseque nt Z00.00 ; Encounter for immunization Z23 and S/P cholecystectomy Z90.49 [place] [address] [address] Oct, [place] [address] [address] Sep, [facility] [place] [id number] [place] [address] Aug, Wheezing R06.2 and Community acquired pneumonia J18.9 [place] [address] [address] March, Shoulder fracture, right, with routine h ealing, subsequent encounter S42.91XD [address] [address] Feb, Shoulder fracture, right S42.91XA [place] [address] [address] Feb, Shoulder pain M25.519 [facility] [address] [place] [id number] [place] [address] 11 Feb, 2016 [facility] [address] [facility] [id number] [place] [address] 09 Feb, 2016 Right shoulder pain M25.511 [facility] [address] [address] 08 Feb, 2016 [facility] [address] [address] Jan, Renal insufficiency N28.9 [facility] [address] [address] Dec, [facility] [address] [address] Dec, Bronchitis J40 [facility] [address] [address] Dec, [facility] [address] [address] Dec, [facility] [address] [address] Nov, [facility] [address] [address] Oct, Renal insufficiency N28.9 [facility] [address] [address] Oct, Screening, lipid Z13.220 [facility] [address] [address] Oct, Chronic obstructive pulmonary disease, u nspecified COPD type J44.9 ; Gastroesophageal reflux disease, esophagitis presence not specified K21.9 ; Dysthymia F34.1 and Screening, lipid Z13.220 [facility] [address] [address] Jun, [facility] [address] [address] Jun, Sleep apnea 780.57 and COPD (chronic obs tructive pulmonary disease) [facility] [address] [place] [id number] [place] [address] Apr, COPD (chronic obstructive pulmonary dise ase) [facility] [address] [place] [id number] [place] [address] 14 Feb, 2015 [facility] [address] [place] [address] [id number] [place] [address] Feb, [facility] [address] [place] [id number] [place] [address] Nov, [facility] [address] [place] [id number] [place] [address] Nov, [facility] [address] [place] [id number] [place] [address] Nov, [facility] [address] [place] [id number] [place] [address] Nov, [facility] [address] [place] [id number] [place] [address] Oct, [facility] [address] [place] [id number] [place] [address] Oct, [facility] [address] [place] [id number] [place] [address] Oct, [facility] [address] [place] [id number] [place] [address] Oct, [facility] [address] [place] [id number] [place] [address] Oct, [facility] [address] [place] [id number] [place] [address] Oct, [facility] [address] [place] [id number] [place] [address] Oct, [facility] [address] [place] [id number] [place] [address] Oct, [facility] [address] [place] [id number] [place] [address] March, [facility] [address] [id number] [place] [address] March, [facility] [address] [id number] [place] [address] March, [facility] [address] [id number] [place] [address] March, [facility] [address] [id number] [place] [address] Feb, [facility] [address] [id number] [place] [address] Feb, [facility] [address] [id number] [place] [address] Feb, [facility] [address] [id number] [place] [address] Feb, [facility] [address] [id number] [place] [address] Feb, [facility] [address] [id number] [place] [address] Feb, [facility] [address] [id number] [place] [address] Jan, [facility] [address] [id number] [place] [address] Jan, [facility] [address] [id number] [place] [address] Nov, [facility] [address] [id number] [place] [address] Nov, [facility] [address] [id number] [place] [address] Nov, [facility] [address] [id number] [place] [address] Aug, [facility] [address] [id number] [place] [address] Aug, [facility] [address] [id number] [place] [address] Aug, [facility] [address] [id number] [place] [address] Jun, [facility] [address] [id number] [place] [address] Jun, [facility] [address] [id number] [place] [address] Apr, [facility] [address] [id number] [place] [address] Apr, [facility] [address] [id number] [place] [address] March, [facility] [address] [id number] [place] [address] Feb, [facility] [address] [id number] [place] [address] Feb, [facility] [address] [id number] [place] [address] Jan, [facility] [address] [id number] [place] [address] Dec, [facility] [address] [id number] [place] [address] Dec, [facility] [address] [id number] [place] [address] Dec, [facility] [address] [id number] [place] [address] Nov, [facility] [address] [id number] [place] [address] Nov, [facility] [address] [id number] [place] [address] Nov, [facility] [address] [id number] [place] [address] Oct, [facility] [address] [id number] [place] [address] Oct, [facility] [address] [id number] [place] [address] Sep, [facility] [address] [id number] [place] [address] Sep, [facility] [address] [id number] [place] [address] Aug, [facility] [address] [id number] [place] [address] Jul, [facility] [address] [id number] [place] [address] May, [facility] [address] [id number] [place] [address] May, [facility] [address] [id number] [place] [address] March, [facility] [address] [id number] [place] [address] Nov, [facility] [address] [id number] [place] [address] Oct, [facility] [address] [id number] [place] [address] Sep, [facility] [address] [id number] [place] [address] Sep, [facility] [address] [id number] [place] [address] Sep, [facility] [address] [id number] [place] [address] Aug, [facility] [address] [id number] [place] [address] Aug, [facility] [address] [id number] [place] [address] Oct, [facility] [address] [id number] [place] [address] Oct, [facility] [address] [id number] [place] [address] Oct, [facility] [address] [id number] [place] [address] 18 Aug, 2010 [facility] [address] [id number] [place] [address] Aug, [facility] [address] [id number] [place] [address] Aug, [facility] [address] [id number] [place] [address] Oct, [facility] [address] [id number] [place] [address] Sep, [facility] [address] [id number] [place] [address] Sep, [facility] [address] [id number] [place] [address] Jul, IMMUNIZATIONS No Known Immunizations SOCIAL HISTORY Never Assessed REASON FOR VISIT PLAN OF CARE VITAL SIGNS MEDICATIONS Unknown Medications RESULTS No Results PROCEDURES Procedure Date Ordered Result Body Site COMPLETE CBC W/AUTO DIFF WBC March 14, 2014 ASSAY THYROID STIM HORMONE March 14, 2014 LIPID PANEL March 14, 2014 COMPREHEN METABOLIC PANEL March 14, 2014 VENIPUNCT, ROUTINE* March 14, 2014 INSTRUCTIONS MEDICATIONS ADMINISTERED No Known Medications MEDICAL (GENERAL) HISTORY Type Description Date Medical History sleep apnea Medical History emphysema Medical History heartburn Medical History broken back in two place Medical History broken right shoulder Medical History knee surgery Surgical History x 3 Surgical History gallbladder Surgical History knee surgery- rt knee 06/06/2019 Hospitalization History surgery
--- OUTSIDE RECORDS SUMMARY | 2020-04-10 09:03 | XMS REPORT ---
Author Author Aldo JARAMILLO Organization [facility] Address [address] [place] [address] Care Team Providers Care Pipe Line Repairer Name Role Phone PATRICIA JARAMILLO Unavailable PROBLEMS Type Condition ICD9-CM Code QGD76-WE Code Onset Dates Condition S tatus SNOMED Code Problem Mammogram declined Z53.20 Active 1 [id number] Problem Tobacco abuse Z72.0 Active 056056 05 Problem Shoulder fracture, right S42.91XA Activ e 23746817 Problem Obstructive sleep apnea syndrome G47.33 Active 15944602 Problem Body mass index (BMI) 45.0-49.9, adult Z68.42 Active 924190129 Problem S/P cholecystectomy Z90.49 Active 966126128 Problem Chronic obstructive pulmonary disease, unspecified J44.9 Active 48339448 Problem Other chronic pain G89.29 Active 8 1715790 Problem Essential hypertension I10 Active 14221590 ALLERGIES No Information ENCOUNTERS Encounter Location Date Diagnosis [place] [address] [address] Nov, Pain in thoracic spine M54.6 [place] [address] [address] 15 Nov, 2019 Chronic obstructive pulmonary disease, u nspecified J44.9 ; Incisional hernia, without obstruction or gangrene K43.2 ; Other chronic pain G89.29 ; Screening, lipid Z13.220 and Obstructive sleep apnea syndrome G47.33 [place] [address] [address] Oct, Pain in thoracic spine M54.6 [place] [address] [address] Oct, Pain in thoracic spine M54.6 [place] [address] [place] [id number] [place] [address] Sep, Pain in thoracic spine M54.6 [facility] [address] [place] [id number] [place] [address] 04 Sep, 2019 Encounter for immunization Z23 [facility] [address] [id number] [place] [address] Aug, Pain in thoracic spine M54.6 [facility] [address] [place] [id number] [place] [address] Jul, Pain in thoracic spine M54.6 [place] [address] [place] [id number] [place] [address] Jun, Pain in thoracic spine M54.6 [place] [address] [place] [id number] [place] [address] Jun, Encounter for Medicare annual wellness e xam Z00.00 ; Chronic obstructive pulmonary disease, unspecified J44.9 ; Essential hypertension I10 ; Other chronic pain G89.29 ; Morbid obesity E66.01 ; Status post arthroscopic knee surgery Z98.890 and Obstructive sleep apnea syndrome G47.33 [place] [address] [place] [id number] [place] [address] May, Pain in thoracic spine M54.6 [facility] [address] [id number] [place] [address] Apr, Pain in thoracic spine M54.6 [facility] [address] [id number] [place] [address] Apr, Acute pain of right knee M25.561 [facility] [address] [id number] [place] [address] March, Pain in thoracic spine M54.6 [facility] [address] [id number] [place] [address] March, Right medial knee pain M25.561 ; Pain in thoracic spine M54.6 and Morbid obesity E66.01 [facility] [address] [facility] [id number] [place] [address] March, Acute pain of right knee M25 .561 and Morbid obesity E66.01 [facility] [address] [place] [id number] [place] [address] Feb, [facility] [address] [address] Feb, Pain in thoracic spine M54.6 [facility] [address] [address] Jan, [facility] [address] [address] Jan, Pain in thoracic spine M54.6 [facility] [address] [address] Dec, Pain in thoracic spine M54.6 [facility] [address] [address] Dec, Chronic obstructive pulmonary disease, u nspecified J44.9 ; Other chronic pain G89.29 and BMI 40.0-44.9, adult Z68.41 [facility] [address] [address] Dec, [facility] [address] [address] Nov, Pain in thoracic spine M54.6 [facility] [address] [address] Nov, [facility] [address] [address] Nov, Pain in thoracic spine M54.6 [facility] [address] [address] Oct, [facility] [address] [address] Oct, [facility] [address] [address] Oct, Pain in thoracic spine M54.6 [facility] [address] [address] Sep, Pain in thoracic spine M54.6 ; BMI 40.0- 44.9, adult Z68.41 and History of tobacco use Z87.891 [facility] [address] [address] Sep, [facility] [address] [address] Sep, Pain in thoracic spine M54.6 [facility] [address] [address] Sep, [facility] [address] [address] Aug, Chronic obstructive pulmonary disease, u nspecified J44.9 [facility] [address] [address] Aug, [facility] [address] [address] Aug, Pain in thoracic spine M54.6 [facility] [address] [address] Aug, Encounter for immunization Z23 [facility] [address] [address] Jul, Pain in thoracic spine M54.6 [facility] [address] [address] Jun, [facility] [address] [address] Jun, Therapeutic drug monitoring Z51.81 ; Shayy n in thoracic spine M54.6 and BMI 40.0-44.9, adult Z68.41 [facility] [address] [address] Jun, [facility] [address] [address] Jun, Pain in thoracic spine M54.6 [facility] [address] [address] May, Pain in thoracic spine M54.6 [facility] [address] [address] May, [facility] [address] [address] Apr, [facility] [address] [address] Apr, Pain in thoracic spine M54.6 [place] [address] [address] Apr, [place] [address] [address] Apr, Medicare annual wellness visit, initial Z00.00 ; BMI 40.0-44.9, adult Z68.41 ; Chronic obstructive pulmonary disease, unspecified J44.9 ; Other chronic pain G89.29 and Essential hypertension I10 [facility] [address] [address] March, Pain in thoracic spine M54.6 [place] [address] [address] Feb, Pain in thoracic spine M54.6 [place] [address] [address] Feb, Pain in thoracic spine M54.6 ; Other chr onic pain G89.29 ; Chronic obstructive pulmonary disease, unspecified J44.9 and Periumbilical hernia K42.9 [facility] [address] [address] Jan, Pain in thoracic spine M54.6 [facility] [address] [address] Jan, Chronic obstructive pulmonary disease, u nspecified J44.9 ; Encounter for immunization Z23 ; Screening, lipid Z13.220 ; Renal insufficiency N28.9 ; Pain in thoracic spine M54.6 and Other chronic pain G89.29 [facility] [address] [address] Sep, Irritation of right eye H57. 8 [place] [address] [address] May, Chronic obstructive pulmonary disease, u nspecified COPD type J44.9 [place] [address] [address] March, [address] [address] Oct, Medicare annual wellness visit, subseque nt Z00.00 ; Encounter for immunization Z23 and S/P cholecystectomy Z90.49 [place] [address] [address] Oct, [place] [address] [address] Sep, [facility] [address] [address] Aug, Wheezing R06.2 and Community acquired pneumonia J18.[address] [address] March, Shoulder fracture, right, with routine h jesusling, subsequent encounter S42.91XD [address] [address] Feb, Shoulder fracture, right S42.91XA [address] [address] Feb, Shoulder pain M25.519 [facility] [address] [place] [id number] [address] [place] [address] Feb, [facility] [address] [place] [address] Feb, Right shoulder pain M25.511 [facility] [address] [address] Feb, [facility] [address] [address] Jan, Renal insufficiency N28.9 [facility] [address] [address] Dec, [facility] [address] [address] Dec, Bronchitis J40 [facility] [address] [address] Dec, [facility] [address] [address] Dec, [facility] [address] [address] Nov, [place] [address] [address] Oct, Renal insufficiency N28.9 [place] [address] [address] Oct, Screening, lipid Z13.220 [place] [address] [address] 10 Oct, 2015 Chronic obstructive pulmonary disease, u nspecified COPD type J44.9 ; Gastroesophageal reflux disease, esophagitis presence not specified K21.9 ; Dysthymia F34.1 and Screening, lipid Z13.220 [place] [address] [address] Jun, [place] [address] [address] Jun, Sleep apnea 780.57 and COPD (chronic obs tructive pulmonary disease) 496 [place] [address] [address] Apr, COPD (chronic obstructive pulmonary dise ase) [address] [place] [address] [place] [address] 14 Feb, 2015 [facility] [address] [id number] [place] [address] 13 Feb, 2015 [facility] [address] [id number] [place] [address] Nov, [facility] [address] [id number] [place] [address] Nov, [facility] [address] [id number] [place] [address] Nov, [facility] [address] [id number] [place] [address] Nov, [facility] [address] [id number] [place] [address] Oct, [facility] [address] [id number] [place] [address] Oct, [facility] [address] [id number] [place] [address] Oct, [facility] [address] [id number] [place] [address] Oct, [facility] [address] [id number] [place] [address] Oct, [facility] [address] [id number] [place] [address] Oct, [facility] [address] [id number] [place] [address] Oct, [facility] [address] [id number] [place] [address] Oct, [facility] [address] [place] [id number] [place] [address] March, [facility] [address] [id number] [place] [address] March, [facility] [address] [id number] [place] [address] March, [facility] [address] [id number] [place] [address] March, [facility] [address] [id number] [place] [address] Feb, [facility] [address] [id number] [place] [address] Feb, [facility] [address] [id number] [place] [address] Feb, [facility] [address] [id number] [place] [address] Feb, [facility] [address] [id number] [place] [address] Feb, [facility] [address] [id number] [place] [address] Feb, [facility] [address] [id number] [place] [address] Jan, [facility] [address] [id number] [place] [address] Jan, [facility] [address] [id number] [place] [address] Nov, [facility] [address] [id number] [place] [address] Nov, [facility] [address] [id number] [place] [address] Nov, [facility] [address] [id number] [place] [address] Aug, [facility] [address] [id number] [place] [address] Aug, [facility] [address] [id number] [place] [address] Aug, [facility] [address] [id number] [place] [address] Jun, [facility] [address] [id number] [place] [address] Jun, [facility] [address] [facility] [id number] [place] [address] Apr, [facility] [address] [id number] [place] [address] Apr, [facility] [address] [id number] [place] [address] March, [facility] [address] [id number] [place] [address] Feb, [facility] [address] [facility] [id number] [place] [address] Feb, [facility] [address] [id number] [place] [address] Jan, [facility] [address] [id number] [place] [address] Dec, [facility] [address] [id number] [place] [address] Dec, [facility] [address] [id number] [place] [address] Dec, [facility] [address] [id number] [place] [address] Nov, [facility] [address] [id number] [place] [address] Nov, [facility] [address] [id number] [place] [address] Nov, [facility] [address] [id number] [place] [address] Oct, [facility] [address] [id number] [place] [address] Oct, [facility] [address] [id number] [place] [address] Sep, [facility] [address] [id number] [place] [address] Sep, [facility] [address] [id number] [place] [address] 08 Aug, 2012 [facility] [address] [id number] [place] [address] Jul, [facility] [address] [id number] [place] [address] May, [facility] [address] [id number] [place] [address] May, [facility] [address] [id number] [place] [address] March, [facility] [address] [id number] [place] [address] Nov, [facility] [address] [id number] [place] [address] Oct, [facility] [address] [id number] [place] [address] Sep, [facility] [address] [id number] [place] [address] Sep, [facility] [address] [id number] [place] [address] Sep, [facility] [address] [id number] [place] [address] Aug, [facility] [address] [id number] [place] [address] Aug, [facility] [address] [id number] [place] [address] Oct, [facility] [address] [id number] [place] [address] 16 Oct, 2010 [facility] [address] [id number] [place] [address] 16 Oct, 2010 [facility] [address] [id number] [place] [address] 18 Aug, 2010 [facility] [address] [id number] [place] [address] 14 Aug, 2010 [facility] [address] [id number] [place] [address] Aug, [facility] [address] [id number] [place] [address] Oct, [facility] [address] [id number] [place] [address] Sep, [facility] [address] [id number] [place] [address] Sep, [facility] [address] [id number] [place] [address] 16 Jul, 2009 IMMUNIZATIONS No Known Immunizations [...]
--- OUTSIDE RECORDS SUMMARY | 2020-04-10 09:03 | XMS REPORT ---
Author Author Aldo JARAMILLO Organization [facility] Address [address] [place] [address] Care Team Providers Care Practical Nursing Teacher Name Role Phone PATRICIA JARAMILLO Unavailable PROBLEMS Type Condition ICD9-CM Code PAH06-NS Code Onset Dates Condition S tatus SNOMED Code Problem Mammogram declined Z53.20 Active 1 [id number] Problem Tobacco abuse Z72.0 Active 731219 05 Problem Shoulder fracture, right S42.91XA Activ e 82268663 Problem Obstructive sleep apnea syndrome G47.33 Active 97011912 Problem Body mass index (BMI) 45.0-49.9, adult Z68.42 Active 150003366 Problem S/P cholecystectomy Z90.49 Active 240559262 Problem Chronic obstructive pulmonary disease, unspecified J44.9 Active 27314756 Problem Other chronic pain G89.29 Active 8 3943474 Problem Essential hypertension I10 Active 18938046 ALLERGIES No Information ENCOUNTERS Encounter Location Date Diagnosis [place] [address] [address] 06 Dec, 2019 [place] [address] [address] Dec, [address] [address] Nov, Pain in thoracic spine M54.6 [place] [address] [address] 15 Nov, 2019 Chronic obstructive pulmonary disease, u nspecified J44.9 ; Incisional hernia, without obstruction or gangrene K43.2 ; Other chronic pain G89.29 ; Screening, lipid Z13.220 and Obstructive sleep apnea syndrome G47.33 [place] [address] [address] Oct, Pain in thoracic spine M54.6 [facility] [address] [id number] [place] [address] Oct, Pain in thoracic spine M54.6 [facility] [address] [id number] [place] [address] Sep, Pain in thoracic spine M54.6 [facility] [address] [id number] [place] [address] Sep, Encounter for immunization Z23 [facility] [address] [place] [id number] [place] [address] Aug, Pain in thoracic spine M54.6 [facility] [address] [place] [id number] [place] [address] Jul, Pain in thoracic spine M54.6 [facility] [address] [id number] [place] [address] Jun, Pain in thoracic spine M54.6 [facility] [address] [place] [id number] [place] [address] Jun, Encounter for Medicare annual wellness e xam Z00.00 ; Chronic obstructive pulmonary disease, unspecified J44.9 ; Essential hypertension I10 ; Other chronic pain G89.29 ; Morbid obesity E66.01 ; Status post arthroscopic knee surgery Z98.890 and Obstructive sleep apnea syndrome G47.33 [facility] [address] [id number] [place] [address] May, Pain in thoracic spine M54.6 [facility] [address] [id number] [place] [address] Apr, Pain in thoracic spine M54.6 [facility] [address] [id number] [place] [address] Apr, Acute pain of right knee M25.561 [facility] [address] [id number] [place] [address] March, Pain in thoracic spine M54.6 [facility] [address] [place] [id number] [place] [address] March, Right medial knee pain M25.561 ; Pain in thoracic spine M54.6 and Morbid obesity E66.01 [facility] [address] [facility] [id number] [address] [place] [address] March, Acute pain of right knee M25 .561 and Morbid obesity E66.01 [facility] [address] [place] [id number] [place] [address] Feb, [facility] [address] [address] Feb, Pain in thoracic spine M54.6 [facility] [address] [address] Jan, [facility] [address] [address] Jan, Pain in thoracic spine M54.6 [facility] [address] [address] Dec, Pain in thoracic spine M54.6 [facility] [address] [place] [id number] [place] [address] Dec, Chronic obstructive pulmonary disease, u nspecified J44.9 ; Other chronic pain G89.29 and BMI 40.0-44.9, adult Z68.41 [facility] [address] [place] [id number] [place] [address] Dec, [facility] [address] [address] Nov, Pain in thoracic spine M54.6 [facility] [address] [place] [id number] [place] [address] Nov, [facility] [address] [address] Nov, Pain in thoracic spine M54.6 [facility] [address] [address] Oct, [facility] [address] [address] Oct, [facility] [address] [address] Oct, Pain in thoracic spine M54.6 [facility] [address] [address] Sep, Pain in thoracic spine M54.6 ; BMI 40.0- 44.9, adult Z68.41 and History of tobacco use Z87.891 [facility] [address] [address] Sep, [facility] [address] [address] Sep, Pain in thoracic spine M54.6 [facility] [address] [address] Sep, [facility] [address] [address] Aug, Chronic obstructive pulmonary disease, u nspecified J44.9 [facility] [address] [address] Aug, [facility] [address] [address] Aug, Pain in thoracic spine M54.6 [facility] [address] [address] Aug, Encounter for immunization Z23 [facility] [address] [address] Jul, Pain in thoracic spine M54.6 [facility] [address] [address] Jun, [facility] [address] [address] Jun, Therapeutic drug monitoring Z51.81 ; Shayy n in thoracic spine M54.6 and BMI 40.0-44.9, adult Z68.41 [facility] [address] [address] Jun, [facility] [address] [address] Jun, Pain in thoracic spine M54.6 [facility] [address] [address] May, Pain in thoracic spine M54.6 [facility] [address] [address] May, [facility] [address] [address] Apr, [facility] [address] [address] Apr, Pain in thoracic spine M54.6 [facility] [address] [address] Apr, [facility] [address] [address] Apr, Medicare annual wellness visit, initial Z00.00 ; BMI 40.0-44.9, adult Z68.41 ; Chronic obstructive pulmonary disease, unspecified J44.9 ; Other chronic pain G89.29 and Essential hypertension I10 [facility] [address] [address] March, Pain in thoracic spine M54.6 [facility] [address] [address] Feb, Pain in thoracic spine M54.6 [facility] [address] [address] Feb, Pain in thoracic spine M54.6 ; Other chr onic pain G89.29 ; Chronic obstructive pulmonary disease, unspecified J44.9 and Periumbilical hernia K42.9 [facility] [address] [address] Jan, Pain in thoracic spine M54.6 [place] [address] [address] Jan, Chronic obstructive pulmonary disease, u nspecified J44.9 ; Encounter for immunization Z23 ; Screening, lipid Z13.220 ; Renal insufficiency N28.9 ; Pain in thoracic spine M54.6 and Other chronic pain G89.29 [facility] [address] [place] [id number] [place] [address] Sep, Irritation of right eye H57. 8 [place] [address] [address] May, Chronic obstructive pulmonary disease, u nspecified COPD type J44.9 [place] [address] [address] March, [place] [address] [address] Oct, Medicare annual wellness visit, subseque nt Z00.00 ; Encounter for immunization Z23 and S/P cholecystectomy Z90.49 [place] [address] [address] Oct, [place] [address] [address] Sep, [facility] [place] [id number] [place] [address] Aug, Wheezing R06.2 and Community acquired pneumonia J18.9 [place] [address] [address] March, Shoulder fracture, right, with routine h ealing, subsequent encounter S42.91XD [address] [address] Feb, Shoulder fracture, right S42.91XA [place] [address] [address] Feb, Shoulder pain M25.519 [facility] [address] [place], [place] [id number] [place] [address] 11 Feb, 2016 [facility] [address] [facility] [id number] [place] [address] 09 Feb, 2016 Right shoulder pain M25.511 [facility] [address] [address] 08 Feb, 2016 [facility] [address] [address] Jan, Renal insufficiency N28.9 [facility] [address] [address] Dec, [facility] [address] [address] Dec, Bronchitis J40 [facility] [address] [address] Dec, [facility] [address] [address] Dec, [facility] [address] [address] Nov, [facility] [address] [address] Oct, Renal insufficiency N28.9 [facility] [address] [address] Oct, Screening, lipid Z13.220 [facility] [address] [address] Oct, Chronic obstructive pulmonary disease, u nspecified COPD type J44.9 ; Gastroesophageal reflux disease, esophagitis presence not specified K21.9 ; Dysthymia F34.1 and Screening, lipid Z13.220 [facility] [address] [address] Jun, [facility] [address] [address] Jun, Sleep apnea 780.57 and COPD (chronic obs tructive pulmonary disease) 496 [facility] [address] [place] [id number] [place] [address] Apr, COPD (chronic obstructive pulmonary dise ase) [facility] [address] [place] [address] [id number] [place] [address] 14 Feb, 2015 [facility] [address] [address] [id number] [place] [address] Feb, [facility] [address] [id number] [place] [address] Nov, [facility] [address] [id number] [place] [address] Nov, [facility] [address] [place] [id number] [place] [address] Nov, [facility] [address] [place] [address] [id number] [place] [address] Nov, [facility] [address] [place] [id number] [place] [address] Oct, [facility] [address] [place] [id number] [place] [address] Oct, [facility] [address] [place] [id number] [place] [address] Oct, [facility] [address] [place] [id number] [place] [address] Oct, [facility] [address] [place] [id number] [place] [address] Oct, [facility] [address] [place] [id number] [place] [address] Oct, [facility] [address] [place] [id number] [place] [address] Oct, [facility] [address] [place] [id number] [place] [address] Oct, [facility] [address] [place] [id number] [place] [address] March, [facility] [address] [id number] [place] [address] March, [facility] [address] [id number] [place] [address] March, [facility] [address] [id number] [place] [address] March, [facility] [address] [id number] [place] [address] Feb, [facility] [address] [id number] [place] [address] Feb, [facility] [address] [id number] [place] [address] Feb, [facility] [address] [id number] [place] [address] Feb, [facility] [address] [id number] [place] [address] Feb, [facility] [address] [id number] [place] [address] Feb, [facility] [address] [id number] [place] [address] Jan, [facility] [address] [id number] [place] [address] Jan, [facility] [address] [id number] [place] [address] Nov, [facility] [address] [id number] [place] [address] Nov, [facility] [address] [id number] [place] [address] Nov, [facility] [address] [id number] [place] [address] Aug, [facility] [address] [id number] [place] [address] Aug, [facility] [address] [id number] [place] [address] Aug, [facility] [address] [id number] [place] [address] Jun, [facility] [address] [id number] [place] [address] Jun, [facility] [address] [id number] [place] [address] Apr, [facility] [address] [id number] [place] [address] Apr, [facility] [address] [id number] [place] [address] March, [facility] [address] [id number] [place] [address] Feb, [facility] [address] [id number] [place] [address] Feb, [facility] [address] [id number] [place] [address] Jan, [facility] [address] [id number] [place] [address] Dec, [facility] [address] [id number] [place] [address] Dec, [facility] [address] [id number] [place] [address] Dec, [facility] [address] [id number] [place] [address] Nov, [facility] [address] [id number] [place] [address] Nov, [facility] [address] [id number] [place] [address] Nov, [facility] [address] [id number] [place] [address] Oct, [facility] [address] [id number] [place] [address] Oct, [facility] [address] [id number] [place] [address] Sep, [facility] [address] [id number] [place] [address] Sep, [facility] [address] [id number] [place] [address] Aug, [facility] [address] [id number] [place] [address] Jul, [facility] [address] [id number] [place] [address] May, [facility] [address] [id number] [place] [address] May, [facility] [address] [id number] [place] [address] March, [facility] [address] [id number] [place] [address] Nov, [facility] [address] [id number] [place] [address] Oct, [facility] [address] [id number] [place] [address] Sep, [facility] [address] [id number] [place] [address] Sep, [facility] [address] [id number] [place] [address] Sep, [facility] [address] [id number] [place] [address] Aug, [facility] [address] [id number] [place] [address] Aug, [facility] [address] [id number] [place] [address] Oct, [facility] [address] [id number] [place] [address] Oct, [facility] [address] [id number] [place] [address] Oct, [facility] [address] [id number] [place] [address] 18 Aug, 2010 [facility] [address] [id number] [place] [address] Aug, [facility] [address] [id number] [place] [address] Aug, [facility] [address] [id number] [place] [address] Oct, [facility] [address] [id number] [place] [address] Sep, [facility] [address] [id number] [place] [address] Sep, [facility] [address] [id number] [place] [address] Jul, IMMUNIZATIONS No Known Immunizations SOCIAL HISTORY [...]
--- OUTSIDE RECORDS SUMMARY | 2020-04-10 09:03 | XMS REPORT ---
Author Author Aldo JARAMILLO Organization [facility] Address [address] [place] [address] Care Team Providers Care Complaint Evaluation Supervisor Name Role Phone PATRICIA JARAMILLO Unavailable PROBLEMS Type Condition ICD9-CM Code [id number] Code Onset Dates Condition S tatus SNOMED Code Problem Mammogram declined Z53.20 Active 1 5801679026615487 Problem Tobacco abuse Z72.0 Active 346444 05 Problem Shoulder fracture, right S42.91XA Activ e 55696119 Problem Obstructive sleep apnea syndrome G47.33 Active 34737305 Problem Body mass index (BMI) 45.0-49.9, adult Z68.42 Active 210813315 Problem S/P cholecystectomy Z90.49 Active 517623205 Problem Chronic obstructive pulmonary disease, unspecified J44.9 Active 41989234 Problem Other chronic pain G89.29 Active 8 9935090 Problem Essential hypertension I10 Active 00201378 ALLERGIES No Information ENCOUNTERS Encounter Location Date Diagnosis [place] [address] [address] 06 Dec, 2019 [place] [address] [address] Dec, [address] [address] Nov, Pain in thoracic spine M54.6 [place] [address] [address] 15 Nov, 2019 Chronic obstructive pulmonary disease, u nspecified J44.9 ; Incisional hernia, without obstruction or gangrene K43.2 ; Other chronic pain G89.29 ; Screening, lipid Z13.220 and Obstructive sleep apnea syndrome G47.33 [place] [address] [address] Oct, Pain in thoracic spine M54.6 [facility] [address] [id number] [place] [address] Oct, Pain in thoracic spine M54.6 [facility] [address] [id number] [place] [address] Sep, Pain in thoracic spine M54.6 [facility] [address] [id number] [place] [address] Sep, Encounter for immunization Z23 [facility] [address] [place] [id number] [place] [address] Aug, Pain in thoracic spine M54.6 [facility] [address] [place] [id number] [place] [address] Jul, Pain in thoracic spine M54.6 [facility] [address] [id number] [place] [address] Jun, Pain in thoracic spine M54.6 [facility] [address] [place] [id number] [place] [address] Jun, Encounter for Medicare annual wellness e xam Z00.00 ; Chronic obstructive pulmonary disease, unspecified J44.9 ; Essential hypertension I10 ; Other chronic pain G89.29 ; Morbid obesity E66.01 ; Status post arthroscopic knee surgery Z98.890 and Obstructive sleep apnea syndrome G47.33 [facility] [address] [id number] [place] [address] May, Pain in thoracic spine M54.6 [facility] [address] [id number] [place] [address] Apr, Pain in thoracic spine M54.6 [facility] [address] [id number] [place] [address] Apr, Acute pain of right knee M25.561 [facility] [address] [id number] [place] [address] March, Pain in thoracic spine M54.6 [facility] [address] [place] [id number] [place] [address] March, Right medial knee pain M25.561 ; Pain in thoracic spine M54.6 and Morbid obesity E66.01 [facility] [address] [facility] [id number] [place] [address] March, Acute pain of right knee M25 .561 and Morbid obesity E66.01 [facility] [address] [place] [id number] [place] [address] Feb, [facility] [address] [address] Feb, Pain in thoracic spine M54.6 [facility] [address] [address] Jan, [facility] [address] [address] Jan, Pain in thoracic spine M54.6 [facility] [address] [address] Dec, Pain in thoracic spine M54.6 [facility] [address] [place] [id number] [place] [address] Dec, Chronic obstructive pulmonary disease, u nspecified J44.9 ; Other chronic pain G89.29 and BMI 40.0-44.9, adult Z68.41 [facility] [address] [place] [id number] [place] [address] Dec, [facility] [address] [address] Nov, Pain in thoracic spine M54.6 [facility] [address] [place] [id number] [place] [address] Nov, [facility] [address] [address] Nov, Pain in thoracic spine M54.6 [facility] [address] [address] Oct, [facility] [address] [address] Oct, [facility] [address] [address] Oct, Pain in thoracic spine M54.6 [facility] [address] [address] Sep, Pain in thoracic spine M54.6 ; BMI 40.0- 44.9, adult Z68.41 and History of tobacco use Z87.891 [facility] [address] [address] Sep, [facility] [address] [address] Sep, Pain in thoracic spine M54.6 [facility] [address] [address] Sep, [facility] [address] [address] Aug, Chronic obstructive pulmonary disease, u nspecified J44.9 [facility] [address] [address] Aug, [facility] [address] [address] Aug, Pain in thoracic spine M54.6 [facility] [address] [address] Aug, Encounter for immunization Z23 [facility] [address] [address] Jul, Pain in thoracic spine M54.6 [facility] [address] [address] Jun, [facility] [address] [address] Jun, Therapeutic drug monitoring Z51.81 ; Shayy n in thoracic spine M54.6 and BMI 40.0-44.9, adult Z68.41 [facility] [address] [address] Jun, [facility] [address] [address] Jun, Pain in thoracic spine M54.6 [facility] [address] [address] May, Pain in thoracic spine M54.6 [facility] [address] [address] May, [facility] [address] [address] Apr, [facility] [address] [address] Apr, Pain in thoracic spine M54.6 [facility] [address] [address] Apr, [facility] [address] [address] Apr, Medicare annual wellness visit, initial Z00.00 ; BMI 40.0-44.9, adult Z68.41 ; Chronic obstructive pulmonary disease, unspecified J44.9 ; Other chronic pain G89.29 and Essential hypertension I10 [facility] [address] [address] March, Pain in thoracic spine M54.6 [facility] [address] [address] Feb, Pain in thoracic spine M54.6 [facility] [address] [address] Feb, Pain in thoracic spine M54.6 ; Other chr onic pain G89.29 ; Chronic obstructive pulmonary disease, unspecified J44.9 and Periumbilical hernia K42.9 [facility] [address] [address] Jan, Pain in thoracic spine M54.6 [place] [address] [address] Jan, Chronic obstructive pulmonary disease, u nspecified J44.9 ; Encounter for immunization Z23 ; Screening, lipid Z13.220 ; Renal insufficiency N28.9 ; Pain in thoracic spine M54.6 and Other chronic pain G89.29 [facility] [address] [place] [id number] [place] [address] Sep, Irritation of right eye H57. 8 [place] [address] [address] May, Chronic obstructive pulmonary disease, u nspecified COPD type J44.9 [place] [address] [address] March, [place] [address] [address] Oct, Medicare annual wellness visit, subseque nt Z00.00 ; Encounter for immunization Z23 and S/P cholecystectomy Z90.49 [place] [address] [address] Oct, [place] [address] [address] Sep, [facility] [place] [id number] [place] [address] Aug, Wheezing R06.2 and Community acquired pneumonia J18.9 [place] [address] [address] March, Shoulder fracture, right, with routine h ealing, subsequent encounter S42.91XD [address] [address] Feb, Shoulder fracture, right S42.91XA [place] [address] [address] Feb, Shoulder pain M25.519 [facility] [address] [place] [id number] [address] [address] 11 Feb, 2016 [facility] [address] [facility] [id number] [place] [address] 09 Feb, 2016 Right shoulder pain M25.511 [facility] [address] [address] 08 Feb, 2016 [facility] [address] [address] Jan, Renal insufficiency N28.9 [facility] [address] [address] Dec, [facility] [address] [address] Dec, Bronchitis J40 [facility] [address] [address] Dec, [facility] [address] [address] Dec, [facility] [address] [address] Nov, [facility] [address] [address] Oct, Renal insufficiency N28.9 [facility] [address] [address] Oct, Screening, lipid Z13.220 [facility] [address] [address] Oct, Chronic obstructive pulmonary disease, u nspecified COPD type J44.9 ; Gastroesophageal reflux disease, esophagitis presence not specified K21.9 ; Dysthymia F34.1 and Screening, lipid Z13.220 [facility] [address] [address] Jun, [facility] [address] [address] Jun, Sleep apnea 780.57 and COPD (chronic obs tructive pulmonary disease) [facility] [address] [place] [id number] [place] [address] Apr, COPD (chronic obstructive pulmonary dise ase) [facility] [address] [place] [id number] [place] [address] 14 Feb, 2015 [facility] [address] [place] [id number] [place] [address] Feb, [facility] [address] [place] [address] [id number] [place] [address] Nov, [facility] [address] [place] [id number] [place] [address] Nov, [facility] [address] [place] [id number] [place] [address] Nov, [facility] [address] [place] [address] [id number] [place] [address] Nov, [facility] [address] [place] [id number] [place] [address] Oct, [facility] [address] [place] [id number] [place] [address] Oct, [facility] [address] [place] [id number] [place] [address] Oct, [facility] [address] [place] [id number] [place] [address] Oct, [facility] [address] [place] [id number] [place] [address] Oct, [facility] [address] [place] [id number] [place] [address] Oct, [facility] [address] [place] [id number] [place] [address] Oct, [facility] [address] [place] [id number] [place] [address] Oct, [facility] [address] [place] [id number] [place] [address] March, [facility] [address] [id number] [place] [address] March, [facility] [address] [id number] [place] [address] March, [facility] [address] [id number] [place] [address] March, [facility] [address] [id number] [place] [address] Feb, [facility] [address] [id number] [place] [address] Feb, [facility] [address] [id number] [place] [address] Feb, [facility] [address] [id number] [place] [address] Feb, [facility] [address] [id number] [place] [address] Feb, [facility] [address] [id number] [place] [address] Feb, [facility] [address] [id number] [place] [address] Jan, [facility] [address] [id number] [place] [address] Jan, [facility] [address] [id number] [place] [address] Nov, [facility] [address] [id number] [place] [address] Nov, [facility] [address] [id number] [place] [address] Nov, [facility] [address] [id number] [place] [address] Aug, [facility] [address] [id number] [place] [address] Aug, [facility] [address] [id number] [place] [address] Aug, [facility] [address] [id number] [place] [address] Jun, [facility] [address] [id number] [place] [address] Jun, [facility] [address] [id number] [place] [address] Apr, [facility] [address] [id number] [place] [address] Apr, [facility] [address] [id number] [place] [address] March, [facility] [address] [id number] [place] [address] Feb, [facility] [address] [id number] [place] [address] Feb, [facility] [address] [id number] [place] [address] Jan, [facility] [address] [id number] [place] [address] Dec, [facility] [address] [id number] [place] [address] Dec, [facility] [address] [id number] [place] [address] Dec, [facility] [address] [id number] [place] [address] Nov, [facility] [address] [id number] [place] [address] Nov, [facility] [address] [id number] [place] [address] Nov, [facility] [address] [id number] [place] [address] Oct, [facility] [address] [id number] [place] [address] Oct, [facility] [address] [id number] [place] [address] Sep, [facility] [address] [id number] [place] [address] Sep, [facility] [address] [id number] [place] [address] Aug, [facility] [address] [id number] [place] [address] Jul, [facility] [address] [id number] [place] [address] May, [facility] [address] [id number] [place] [address] May, [facility] [address] [id number] [place] [address] March, [facility] [address] [id number] [place] [address] Nov, [facility] [address] [id number] [place] [address] Oct, [facility] [address] [id number] [place] [address] Sep, [facility] [address] [id number] [place] [address] Sep, [facility] [address] [id number] [place] [address] Sep, [facility] [address] [id number] [place] [address] Aug, [facility] [address] [id number] [place] [address] Aug, [facility] [address] [id number] [place] [address] Oct, [facility] [address] [id number] [place] [address] Oct, [facility] [address] [id number] [place] [address] Oct, [facility] [address] [id number] [place] [address] Aug, [facility] [address] [id number] [place] [address] Aug, [facility] [address] [id number] [place] [address] Aug, [facility] [address] [id number] [place] [address] Oct, [facility] [address] [id number] [place] [address] Sep, [facility] [address] [id number] [place] [address] Sep, [facility] [address] [id number] [place] [address] Jul, IMMUNIZATIONS No Known Immunizations SOCIAL HISTORY Never Assessed REASON FOR VISIT Controlled 02/13 PLAN OF CARE VITAL SIGNS MEDICATIONS Medication Instructions Dosage Frequency Start Date End Date Duration S tatus Hydrocodone-Acetaminophen 5-325 MG Orally 3 times a day 1 tablet as needed 8h Jan, 28 days Active RESULTS No [...]
--- OUTSIDE RECORDS SUMMARY | 2020-04-10 09:03 | XMS REPORT ---
Author Author Aldo JARAMILLO Organization [facility] Address [address] [place] [address] Care Team Providers Care Telecommunications Network Engineer Name Role Phone PATRICIA JARAMILLO Unavailable PROBLEMS Type Condition ICD9-CM Code ATJ74-QC Code Onset Dates Condition S tatus SNOMED Code Problem Mammogram declined Z53.20 Active 1 0987161069464010 Problem Tobacco abuse Z72.0 Active 444960 05 Problem Shoulder fracture, right S42.91XA Activ e 60221148 Problem Obstructive sleep apnea syndrome G47.33 Active 43668471 Problem Body mass index (BMI) 45.0-49.9, adult Z68.42 Active 873691451 Problem S/P cholecystectomy Z90.49 Active 804028310 Problem Chronic obstructive pulmonary disease, unspecified J44.9 Active 72229294 Problem Other chronic pain G89.29 Active 8 5317402 Problem Essential hypertension I10 Active 09559310 ALLERGIES No Information ENCOUNTERS Encounter Location Date Diagnosis [place] [address] [address] Nov, Pain in thoracic spine M54.6 [place] [address] [address] 15 Nov, 2019 Chronic obstructive pulmonary disease, u nspecified J44.9 ; Incisional hernia, without obstruction or gangrene K43.2 ; Other chronic pain G89.29 ; Screening, lipid Z13.220 and Obstructive sleep apnea syndrome G47.33 [place] [address] [address] Oct, Pain in thoracic spine M54.6 [place] [address] [address] Oct, Pain in thoracic spine M54.6 [place] [address] [place] [id number] [place] [address] Sep, Pain in thoracic spine M54.6 [facility] [address] [place] [id number] [place] [address] 04 Sep, 2019 Encounter for immunization Z23 [facility] [address] [id number] [place] [address] Aug, Pain in thoracic spine M54.6 [facility] [address] [place] [id number] [place] [address] Jul, Pain in thoracic spine M54.6 [place] [address] [place] [id number] [place] [address] Jun, Pain in thoracic spine M54.6 [place] [address] [place] [id number] [place] [address] Jun, Encounter for Medicare annual wellness e xam Z00.00 ; Chronic obstructive pulmonary disease, unspecified J44.9 ; Essential hypertension I10 ; Other chronic pain G89.29 ; Morbid obesity E66.01 ; Status post arthroscopic knee surgery Z98.890 and Obstructive sleep apnea syndrome G47.33 [place] [address] [place] [id number] [place] [address] May, Pain in thoracic spine M54.6 [facility] [address] [id number] [place] [address] Apr, Pain in thoracic spine M54.6 [facility] [address] [id number] [place] [address] Apr, Acute pain of right knee M25.561 [facility] [address] [id number] [place] [address] March, Pain in thoracic spine M54.6 [facility] [address] [id number] [place] [address] March, Right medial knee pain M25.561 ; Pain in thoracic spine M54.6 and Morbid obesity E66.01 [facility] [address] [facility] [id number] [place] [address] March, Acute pain of right knee M25 .561 and Morbid obesity E66.01 [facility] [address] [place] [id number] [place] [address] Feb, [facility] [address] [address] Feb, Pain in thoracic spine M54.6 [facility] [address] [address] Jan, [facility] [address] [address] Jan, Pain in thoracic spine M54.6 [facility] [address] [address] Dec, Pain in thoracic spine M54.6 [facility] [address] [address] Dec, Chronic obstructive pulmonary disease, u nspecified J44.9 ; Other chronic pain G89.29 and BMI 40.0-44.9, adult Z68.41 [facility] [address] [address] Dec, [facility] [address] [address] Nov, Pain in thoracic spine M54.6 [facility] [address] [address] Nov, [facility] [address] [address] Nov, Pain in thoracic spine M54.6 [facility] [address] [address] Oct, [facility] [address] [address] Oct, [facility] [address] [address] Oct, Pain in thoracic spine M54.6 [facility] [address] [address] Sep, Pain in thoracic spine M54.6 ; BMI 40.0- 44.9, adult Z68.41 and History of tobacco use Z87.891 [facility] [address] [address] Sep, [facility] [address] [address] Sep, Pain in thoracic spine M54.6 [facility] [address] [address] Sep, [facility] [address] [address] Aug, Chronic obstructive pulmonary disease, u nspecified J44.9 [facility] [address] [address] Aug, [facility] [address] [address] Aug, Pain in thoracic spine M54.6 [facility] [address] [address] Aug, Encounter for immunization Z23 [facility] [address] [address] Jul, Pain in thoracic spine M54.6 [facility] [address] [address] Jun, [facility] [address] [address] Jun, Therapeutic drug monitoring Z51.81 ; Shayy n in thoracic spine M54.6 and BMI 40.0-44.9, adult Z68.41 [facility] [address] [address] Jun, [facility] [address] [address] Jun, Pain in thoracic spine M54.6 [facility] [address] [address] May, Pain in thoracic spine M54.6 [facility] [address] [address] May, [facility] [address] [address] Apr, [facility] [address] [address] Apr, Pain in thoracic spine M54.6 [place] [address] [address] Apr, [place] [address] [address] Apr, Medicare annual wellness visit, initial Z00.00 ; BMI 40.0-44.9, adult Z68.41 ; Chronic obstructive pulmonary disease, unspecified J44.9 ; Other chronic pain G89.29 and Essential hypertension I10 [facility] [address] [address] March, Pain in thoracic spine M54.6 [place] [address] [address] Feb, Pain in thoracic spine M54.6 [place] [address] [address] Feb, Pain in thoracic spine M54.6 ; Other chr onic pain G89.29 ; Chronic obstructive pulmonary disease, unspecified J44.9 and Periumbilical hernia K42.9 [facility] [address] [address] Jan, Pain in thoracic spine M54.6 [facility] [address] [address] Jan, Chronic obstructive pulmonary disease, u nspecified J44.9 ; Encounter for immunization Z23 ; Screening, lipid Z13.220 ; Renal insufficiency N28.9 ; Pain in thoracic spine M54.6 and Other chronic pain G89.29 [facility] [address] [address] Sep, Irritation of right eye H57. 8 [place] [address] [address] May, Chronic obstructive pulmonary disease, u nspecified COPD type J44.9 [place] [address] [address] March, [address] [address] Oct, Medicare annual wellness visit, subseque nt Z00.00 ; Encounter for immunization Z23 and S/P cholecystectomy Z90.49 [place] [address] [address] Oct, [place] [address] [address] Sep, [facility] [address] [address] Aug, Wheezing R06.2 and Community acquired pneumonia J18.[address] [address] March, Shoulder fracture, right, with routine h jesusling, subsequent encounter S42.91XD [address] [address] Feb, Shoulder fracture, right S42.91XA [address] [address] Feb, Shoulder pain M25.519 [facility] [address] [place], [place] [id number] [address] [place] [address] Feb, [facility] [address] [place] [address] Feb, Right shoulder pain M25.511 [facility] [address] [address] Feb, [facility] [address] [address] Jan, Renal insufficiency N28.9 [facility] [address] [address] Dec, [facility] [address] [address] Dec, Bronchitis J40 [facility] [address] [address] Dec, [facility] [address] [address] Dec, [facility] [address] [address] Nov, [place] [address] [address] Oct, Renal insufficiency N28.9 [place] [address] [address] Oct, Screening, lipid Z13.220 [place] [address] [address] 10 Oct, 2015 Chronic obstructive pulmonary disease, u nspecified COPD type J44.9 ; Gastroesophageal reflux disease, esophagitis presence not specified K21.9 ; Dysthymia F34.1 and Screening, lipid Z13.220 [place] [address] [address] Jun, [place] [address] [address] Jun, Sleep apnea 780.57 and COPD (chronic obs tructive pulmonary disease) 496 [place] [address] [address] Apr, COPD (chronic obstructive pulmonary dise ase) [address] [place] [address] [place] [address] 14 Feb, 2015 [facility] [address] [id number] [place] [address] 13 Feb, 2015 [facility] [address] [id number] [place] [address] Nov, [facility] [address] [id number] [place] [address] Nov, [facility] [address] [id number] [place] [address] Nov, [facility] [address] [id number] [place] [address] Nov, [facility] [address] [id number] [place] [address] Oct, [facility] [address] [id number] [place] [address] Oct, [facility] [address] [id number] [place] [address] Oct, [facility] [address] [id number] [place] [address] Oct, [facility] [address] [id number] [place] [address] Oct, [facility] [address] [id number] [place] [address] Oct, [facility] [address] [id number] [place] [address] Oct, [facility] [address] [id number] [place] [address] Oct, [facility] [address] [place] [id number] [place] [address] March, [facility] [address] [id number] [place] [address] March, [facility] [address] [id number] [place] [address] March, [facility] [address] [id number] [place] [address] March, [facility] [address] [id number] [place] [address] Feb, [facility] [address] [id number] [place] [address] Feb, [facility] [address] [id number] [place] [address] Feb, [facility] [address] [id number] [place] [address] Feb, [facility] [address] [id number] [place] [address] Feb, [facility] [address] [id number] [place] [address] Feb, [facility] [address] [id number] [place] [address] Jan, [facility] [address] [id number] [place] [address] Jan, [facility] [address] [id number] [place] [address] Nov, [facility] [address] [id number] [place] [address] Nov, [facility] [address] [id number] [place] [address] Nov, [facility] [address] [id number] [place] [address] Aug, [facility] [address] [id number] [place] [address] Aug, [facility] [address] [id number] [place] [address] Aug, [facility] [address] [id number] [place] [address] Jun, [facility] [address] [id number] [place] [address] Jun, [facility] [address] [facility] [id number] [place] [address] Apr, [facility] [address] [id number] [place] [address] Apr, [facility] [address] [id number] [place] [address] March, [facility] [address] [id number] [place] [address] Feb, [facility] [address] [facility] [id number] [place] [address] Feb, [facility] [address] [id number] [place] [address] Jan, [facility] [address] [id number] [place] [address] Dec, [facility] [address] [id number] [place] [address] Dec, [facility] [address] [id number] [place] [address] Dec, [facility] [address] [id number] [place] [address] Nov, [facility] [address] [id number] [place] [address] Nov, [facility] [address] [id number] [place] [address] Nov, [facility] [address] [id number] [place] [address] Oct, [facility] [address] [id number] [place] [address] Oct, [facility] [address] [id number] [place] [address] Sep, [facility] [address] [id number] [place] [address] Sep, [facility] [address] [id number] [place] [address] 08 Aug, 2012 [facility] [address] [id number] [place] [address] Jul, [facility] [address] [id number] [place] [address] May, [facility] [address] [id number] [place] [address] May, [facility] [address] [id number] [place] [address] March, [facility] [address] [id number] [place] [address] Nov, [facility] [address] [id number] [place] [address] Oct, [facility] [address] [id number] [place] [address] Sep, [facility] [address] [id number] [place] [address] Sep, [facility] [address] [id number] [place] [address] Sep, [facility] [address] [id number] [place] [address] Aug, [facility] [address] [id number] [place] [address] Aug, [facility] [address] [id number] [place] [address] Oct, [facility] [address] [id number] [place] [address] 16 Oct, 2010 [facility] [address] [id number] [place] [address] 16 Oct, 2010 [facility] [address] [id number] [place] [address] 18 Aug, 2010 [facility] [address] [id number] [place] [address] 14 Aug, 2010 [facility] [address] [id number] [place] [address] Aug, [facility] [address] [id number] [place] [address] Oct, [facility] [address] [id number] [place] [address] Sep, [facility] [address] [id number] [place] [address] Sep, [facility] [address] [id number] [place] [address] 16 Jul, 2009 IMMUNIZATIONS No Known Immunizations [...]
--- OUTSIDE RECORDS SUMMARY | 2020-04-10 09:04 | XMS REPORT ---
Author Author Aldo JARAMILLO Organization [facility] Address [address] [place] [address] Care Team Providers Care Tobacco Flavorer Name Role Phone PATRICIA AJRAMILLO Unavailable PROBLEMS Type Condition ICD9-CM Code [id number] Code Onset Dates Condition S tatus SNOMED Code Problem Mammogram declined Z53.20 Active 1 [id number] Problem Tobacco abuse Z72.0 Active 969894 05 Problem Shoulder fracture, right S42.91XA Activ e 10991808 Problem Obstructive sleep apnea syndrome G47.33 Active 10017948 Problem Body mass index (BMI) 45.0-49.9, adult Z68.42 Active 598613618 Problem S/P cholecystectomy Z90.49 Active 307324492 Problem Chronic obstructive pulmonary disease, unspecified J44.9 Active 66828315 Problem Other chronic pain G89.29 Active 8 1088496 Problem Essential hypertension I10 Active 45680264 ALLERGIES No Information ENCOUNTERS Encounter Location Date Diagnosis [place] [address] [place] [id number] [address] [place] [id number] 09 Jul, 2019 Pain in thoracic spine M54.6 [place] [address] [place] [id number] [address] [place] [id number] Jun, Pain in thoracic spine M54.6 [place] [address] [facility] [id number] [address] [place] [id number] Jun, Encounter for Medicare annua l wellness exam Z00.00 ; Chronic obstructive pulmonary disease, unspecified J44.9 ; Essential hypertension I10 ; Other chronic pain G89.29 ; Morbid obesity E66.01 ; Status post arthroscopic knee surgery Z98.890 and Obstructive sleep apnea syndrome G47.33 [place] [id number] [facility] [id number] [address] [place] [id number] May, Pain in thoracic spine M54.6 [facility] [address] [id number] [address] [place] [id number] Apr, Pain in thoracic spine M54.6 [facility] [address] [id number] [address] [place] [id number] Apr, Acute pain of right knee M25 .561 [facility] [address] [id number] [address] [place] [address] March, Pain in thoracic spine M54.6 [facility] [address] [id number] [address] [place] [id number] March, Right medial knee pain M25.5 61 ; Pain in thoracic spine M54.6 and Morbid obesity E66.01 [facility] [address] [id number] [address] [place] [address] March, Acute pain of right knee M25 .561 and Morbid obesity E66.01 [facility] [address] [id number] [address] [place] [address] Feb, [facility] [address] [id number] [address] [place] [phone] Feb, Pain in thoracic spine M54.6 [facility] [address] [id number] [address] [place] [phone] Jan, [facility] [address] [id number] [address] [place] [id number] Jan, Pain in thoracic spine M54.6 [facility] [address] [id number] [address] [place] [id number] Dec, Pain in thoracic spine M54.6 [facility] [address] [id number] [address] [place] [phone] Dec, Chronic obstructive pulmonar y disease, unspecified J44.9 ; Other chronic pain G89.29 and BMI 40.0-44.9, adult Z68.41 [facility] [address] [id number] [address] [place] [id number] Dec, [facility] [address] [id number] [address] [place] [id number] Nov, Pain in thoracic spine M54.6 [facility] [address] [id number] [address] [place] [phone] Nov, [facility] [address] [id number] [address] [place] [phone] Nov, Pain in thoracic spine M54.6 [facility] [address] [id number] [address] [place] [phone] Oct, [facility] [address] [id number] [address] [place] [phone] Oct, [facility] [address] [id number] [address] [place] [id number] Oct, Pain in thoracic spine M54.6 [facility] [address] [id number] [address] [place] [address] Sep, Pain in thoracic spine M54.6 ; BMI 40.0-44.9, adult Z68.41 and History of tobacco use Z87.891 [facility] [address] [id number] [address] [place] [address] Sep, [facility] [address] [id number] [address] [place] [address] Sep, Pain in thoracic spine M54.6 [facility] [address] [id number] [address] [place] [phone] Sep, [facility] [address] [id number] [address] [place] [address] Aug, Chronic obstructive pulmonar y disease, unspecified J44.9 [facility] [address] [id number] [address] [place] [phone] Aug, [facility] [address] [id number] [address] [place] [address] Aug, Pain in thoracic spine M54.6 [facility] [address] [id number] [address] [place] [id number] 02 Aug, 2018 Encounter for immunization Z 23 [facility] [address] [id number] [address] [place] [id number] 14 Jul, 2018 Pain in thoracic spine M54.6 [facility] [address] [id number] [address] [place] [id number] Jun, [facility] [address] [id number] [address] [place] [id number] Jun, Therapeutic drug monitoring Z51.81 ; Pain in thoracic spine M54.6 and BMI 40.0-44.9, adult Z68.41 [facility] [address] [id number] [address] [place] [id number] Jun, [facility] [address] [id number] [address] [place] [id number] Jun, Pain in thoracic spine M54.6 [facility] [address] [id number] [address] [place] [id number] May, Pain in thoracic spine M54.6 [facility] [address] [id number] [address] [place] [phone] May, [facility] [address] [id number] [address] [place] [phone] Apr, [facility] [address] [id number] [address] [place] [address] Apr, Pain in thoracic spine M54.6 [facility] [address] [id number] [address] [place] [phone] Apr, [facility] [address] [id number] [address] [place] [id number] Apr, Medicare annual wellness vis it, initial Z00.00 ; BMI 40.0-44.9, adult Z68.41 ; Chronic obstructive pulmonary disease, unspecified J44.9 ; Other chronic pain G89.29 and Essential hypertension I10 [facility] [address] [address] March, Pain in thoracic spine M54.6 [place] [address] [address] Feb, Pain in thoracic spine M54.6 [facility] [address] [address] Feb, Pain in thoracic spine M54.6 ; Other chronic pain G89.29 ; Chronic obstructive pulmonary disease, unspecified J44.9 and Periumbilical hernia K42.9 [place] [address] [address] Jan, Pain in thoracic spine M54.6 [place] [address] [address] Jan, Chronic obstructive pulmonar y disease, unspecified J44.9 ; Encounter for immunization Z23 ; Screening, lipid Z13.220 ; Renal insufficiency N28.9 ; Pain in thoracic spine M54.6 and Other chronic pain G89.29 [facility] [address] [address] Sep, Irritation of right eye H57. 8 [facility] [address] [address] May, Chronic obstructive pulmonar y disease, unspecified COPD type J44.9 [place] [address] [address] March, [place] [address] [address] Oct, Medicare annual wellness vis it, subsequent Z00.00 ; Encounter for immunization Z23 and S/P cholecystectomy Z90.49 [facility] [address] [place] [address] Oct, [facility] [address] [address] Sep, [facility] [address] [place] [id number] [place] [address] Aug, Wheezing R06.2 and Community acquired pneumonia J18.9 [facility] [address] [address] March, Shoulder fracture, right, wi th routine healing, subsequent encounter S42.91XD [facility] [address] [address] Feb, Shoulder fracture, right S42 .91XA [facility] [address] [address] Feb, Shoulder pain M25.519 [facility] [address] [address] Feb, [facility] [address] [address] Feb, Right shoulder pain M25.511 [facility] [address] [address] Feb, [facility] [address] [address] Jan, Renal insufficiency N28.9 [facility] [address] [place] [id number] [address] [place] [address] Dec, [facility] [address] [address] Dec, Bronchitis J40 [facility] [address] [address] Dec, [facility] [address] [address] Dec, [facility] [address] [place] [id number] [address] [place] [address] Nov, [facility] [address] [address] Oct, Renal insufficiency N28.9 [facility] [address] [address] Oct, Screening, lipid Z13.220 [facility] [address] [address] 10 Oct, 2015 Chronic obstructive pulmonar y disease, unspecified COPD type J44.9 ; Gastroesophageal reflux disease, esophagitis presence not specified K21.9 ; Dysthymia F34.1 and Screening, lipid Z13.220 [facility] [address] [place] [id number] [address] [place] [address] Jun, [facility] [address] [address] Jun, Sleep apnea 780.57 and COPD (chronic obstructive pulmonary disease) 496 [facility] [address] [address] Apr, COPD (chronic obstructive pu lmonary disease) 496 [facility] [address] [place] [id number] [address] [place] [id number] Feb, [facility] [address] [place] [id number] [address] [place] [id number] Feb, [facility] [address] [place] [id number] [address] [place] [address] Nov, [facility] [address] [address] Nov, [facility] [address] [place] [id number] [address] [place] [address] Nov, [facility] [address] [address] Nov, [facility] [address] [id number] [address] [place] [address], [place] [address] Oct, [facility] [address] [id number] [address] [place] [address], [place] [address] Oct, [facility] [address] [id number] [address] [place] [address], [place] [address] Oct, [facility] [address] [id number] [address] [place] [address], [place] [address] Oct, [facility] [address] [id number] [address] [place] [address], [place] [address] Oct, [facility] [address] [id number] [address] [place] [address], [place] [address] Oct, [facility] [address] [id number] [address] [place] [address], [place] [address] Oct, [facility] [address] [id number] [address] [place] [address], [place] [address] Oct, [facility] [address] [id number] [address] [place] [address], [place] [address] March, [facility] [address] [id number] [address] [place] [address], [place] [address] March, [facility] [address] [id number] [address] [place] [address], [place] [address] March, [facility] [place] [facility] [address] [id number] [address] [place] [address], [place] [address] March, [facility] [place] [facility] [address] [id number] [address] [place] [address], [place] [address] Feb, [facility] [place] [facility] [address] [id number] [address] [place] [address], [place] [address] Feb, [facility] [place] [facility] [address] [id number] [address] [place] [address], [place] [address] Feb, [facility] [address] [id number] [address] [place] [address], [place] [address] 29 Feb, 2014 [facility] [address] [id number] [address] [place] [address], [place] [address] Feb, [facility] [address] [id number] [address] [place] [address], [place] [address] Feb, [facility] [address] [id number] [address] [place] [address], [place] [address] Jan, [facility] [address] [id number] [address] [place] [address], [place] [address] Jan, [facility] [address] [id number] [address] [place] [address], [place] [address] Nov, [facility] [address] [id number] [address] [place] [address], [place] [address] Nov, [facility] [address] [id number] [address] [place] [address], [place] [address] Nov, [facility] [address] [id number] [address] [place] [address], [place] [address] Aug, [facility] [address] [id number] [address] [place] [address], [place] [address] Aug, [facility] [address] [id number] [address] [place] [address], [place] [address] Aug, [facility] [address] [id number] [address] [place] [address], [place] [address] Jun, [facility] [address] [id number] [address] [place] [address], [place] [address] Jun, [facility] [address] [id number] [address] [place] [address], [place] [address] Apr, [facility] [place] [facility] [address] [id number] [address] [place] [address], [place] [address] Apr, [facility] [address] [id number] [address] [place] [address], [place] [address] March, [facility] [address] [id number] [address] [place] [address], [place] [address] Feb, [facility] [address] [id number] [address] [place] [address], [place] [address] Feb, [facility] [address] [id number] [address] [place] [address], [place] [address] Jan, [facility] [address] [id number] [address] [place] [address], [place] [address] Dec, [facility] [address] [id number] [address] [place] [address], [place] [address] Dec, [facility] [address] [id number] [address] [place] [address], [place] [address] Dec, [facility] [address] [id number] [address] [place] [address], [place] [address] Nov, [facility] [address] [id number] [address] [place] [address], [place] [address] Nov, [facility] [address] [id number] [address] [place] [address], [place] [address] Nov, [facility] [address] [id number] [address] [place] [address], [place] [address] Oct, [facility] [address] [id number] [address] [place] [address], [place] [address] Oct, [facility] [address] [id number] [address] [place] [address], [place] [address] Sep, [facility] [address] [id number] [address] [place] [address], [place] [address] Sep, [facility] [address] [id number] [address] [place] [address], [place] [address] Aug, [facility] [address] [id number] [address] [place] [address], [place] [address] Jul, [facility] [address] [id number] [address] [place] [address] May, [facility] [address] [id number] [address] [place] [address], [place] [address] May, [facility] [address] [id number] [address] [place] [address], [place] [address] March, [facility] [address] [id number] [address] [place] [address], [place] [address] Nov, [facility] [address] [id number] [address] [place] [address], [place] [address] Oct, [facility] [address] [id number] [address] [place] [address], [place] [address] Sep, [facility] [address] [id number] [address] [place] [address], [place] [address] Sep, [facility] [address] [id number] [address] [place] [address], [place] [address] Sep, [facility] [address] [id number] [address] [place] [address], [place] [address] Aug, [facility] [address] [id number] [address] [place] [address], [place] [address] Aug, [facility] [address] [id number] [address] [place] [address], [place] [address] Oct, [facility] [address] [id number] [address] [place] [address], [place] [address] 16 Oct, 2010 [facility] [address] [id number] [address] [place] [address], [place] [id number] 16 Oct, 2010 [facility] [address] [id number] [address] [place] [address], [place] [id number] 18 Aug, 2010 [facility] [address] [id number] [address] [place] [address], [place] [id number] 14 Aug, 2010 [facility] [address] [id number] [address] [place] [address], [place] [id number] 14 Aug, 2010 [facility] [address] [id number] [address] [place] [id number] Oct, [facility] [address] [facility] [id number] [address] [place] [id number] Sep, [facility] [address] [facility] [id number] [address] [place] [id number] Sep, [facility] [address] [facility] [id number] [address] [place] [id number] Jul, IMMUNIZATIONS No Known Immunizations SOCIAL HISTORY Never Assessed REASON FOR VISIT PLAN OF CARE VITAL SIGNS Height 66 in 2014-11-29 Weight 200 lbs 2014-11-29 Temperature 99.2 degrees Fahrenheit 2014-11-29 Heart Rate 80 bpm 2014-11-29 Respiratory Rate 24 2014-11-29 Blood pressure systolic 128 mmHg 2014-11-29 Blood pressure diastolic 78 mmHg 2014-11-29 MEDICATIONS Unknown Medications RESULTS No Results PROCEDURES Procedure Date Ordered Result Body Site MEASURE BLOOD OXYGEN LEVEL Nov 29, 2014 INSTRUCTIONS MEDICATIONS ADMINISTERED No Known Medications MEDICAL (GENERAL) HISTORY Type Description Date Medical History sleep apnea Medical History emphysema Medical History heartburn Medical History broken back in two place Medical History broken right shoulder Medical History knee surgery Surgical History x 3 Surgical History gallbladder Surgical History knee surgery- rt knee 06/06/2019 Hospitalization History surgery
--- OUTSIDE RECORDS SUMMARY | 2020-04-10 09:04 | XMS REPORT ---
Author Author Aldo JARAMILLO Organization [facility] Address [address] [place] [address] Care Team Providers Care Seam Steamer Name Role Phone PATRICIA JARAMILLO Unavailable PROBLEMS Type Condition ICD9-CM Code SWH45-GW Code Onset Dates Condition S tatus SNOMED Code Problem Mammogram declined Z53.20 Active 1 [id number] Problem Tobacco abuse Z72.0 Active 838413 05 Problem Shoulder fracture, right S42.91XA Activ e 02396040 Problem Obstructive sleep apnea syndrome G47.33 Active 58026898 Problem Body mass index (BMI) 45.0-49.9, adult Z68.42 Active 318487144 Problem S/P cholecystectomy Z90.49 Active 585221547 Problem Chronic obstructive pulmonary disease, unspecified J44.9 Active 93751924 Problem Other chronic pain G89.29 Active 8 4789512 Problem Essential hypertension I10 Active 54907400 ALLERGIES No Information ENCOUNTERS Encounter Location Date Diagnosis [place] [address] [place] [id number] [place] [address] Jun, Pain in thoracic spine M54.6 [facility] [address] [id number] [address] [place] [address] 14 Jun, 2019 Encounter for Medicare annua l wellness exam Z00.00 ; Chronic obstructive pulmonary disease, unspecified J44.9 ; Essential hypertension I10 ; Other chronic pain G89.29 ; Morbid obesity E66.01 ; Status post arthroscopic knee surgery Z98.890 and Obstructive sleep apnea syndrome G47.33 [facility] [address] [place] [id number] [address] [place] [address] May, Pain in thoracic spine M54.6 [facility] [address] [place] [id number] [address] [place] [address] Apr, Pain in thoracic spine M54.6 [facility] [address] [id number] [address] [place] [address] Apr, Acute pain of right knee M25 .561 [facility] [address] [id number] [address] [place] [address] March, Pain in thoracic spine M54.6 [facility] [address] [id number] [address] [place] [address] March, Right medial knee pain M25.5 61 ; Pain in thoracic spine M54.6 and Morbid obesity E66.01 [facility] [address] [id number] [address] [place] [address] March, Acute pain of right knee M25 .561 and Morbid obesity E66.01 [facility] [address] [id number] [address] [place] [address] Feb, [facility] [address] [id number] [address] [place] [address] Feb, Pain in thoracic spine M54.6 [facility] [address] [id number] [address] [place] [address] Jan, [facility] [address] [id number] [address] [place] [address] Jan, Pain in thoracic spine M54.6 [facility] [address] [id number] [address] [place] [address] Dec, Pain in thoracic spine M54.6 [facility] [address] [id number] [address] [place] [address] Dec, Chronic obstructive pulmonar y disease, unspecified J44.9 ; Other chronic pain G89.29 and BMI 40.0-44.9, adult Z68.41 [facility] [address] [id number] [address] [place] [address] Dec, [facility] [address] [id number] [address] [place] [address] Nov, Pain in thoracic spine M54.6 [facility] [address] [id number] [address] [place] [address] Nov, [facility] [address] [id number] [address] [place] [address] Nov, Pain in thoracic spine M54.6 [facility] [address] [id number] [address] [place] [address] Oct, [facility] [address] [id number] [address] [place] [address] Oct, [facility] [address] [id number] [address] [place] [address] Oct, Pain in thoracic spine M54.6 [facility] [address] [id number] [address] [place] [address] Sep, Pain in thoracic spine M54.6 ; BMI 40.0-44.9, adult Z68.41 and History of tobacco use Z87.891 [facility] [address] [id number] [address] [place] [address] Sep, [facility] [address] [id number] [address] [place] [address] Sep, Pain in thoracic spine M54.6 [facility] [address] [id number] [address] [place] [address] Sep, [facility] [address] [id number] [address] [place] [address] Aug, Chronic obstructive pulmonar y disease, unspecified J44.9 [facility] [address] [id number] [address] [place] [address] Aug, [facility] [address] [id number] [address] [place] [address] Aug, Pain in thoracic spine M54.6 [facility] [address] [id number] [address] [place] [address] 02 Aug, 2018 Encounter for immunization Z 23 [facility] [address] [id number] [address] [place] [address] 14 Jul, 2018 Pain in thoracic spine M54.6 [facility] [address] [id number] [address] [place] [address] Jun, [facility] [address] [id number] [address] [place] [address] Jun, Therapeutic drug monitoring Z51.81 ; Pain in thoracic spine M54.6 and BMI 40.0-44.9, adult Z68.41 [facility] [address] [id number] [address] [place] [address] Jun, [facility] [address] [id number] [address] [place] [address] Jun, Pain in thoracic spine M54.6 [facility] [address] [id number] [address] [place] [address] May, Pain in thoracic spine M54.6 [facility] [address] [id number] [address] [place] [address] May, [facility] [address] [id number] [address] [place] [address] Apr, [facility] [address] [id number] [address] [place] [address] Apr, Pain in thoracic spine M54.6 [facility] [address] [id number] [address] [place] [address] Apr, [facility] [address] [id number] [address] [place] [address] Apr, Medicare annual wellness vis it, initial Z00.00 ; BMI 40.0-44.9, adult Z68.41 ; Chronic obstructive pulmonary disease, unspecified J44.9 ; Other chronic pain G89.29 and Essential hypertension I10 [facility] [address] [facility] [id number] [address] [place] [address] March, Pain in thoracic spine M54.6 [facility] [address] [facility] [id number] [address] [place] [address] Feb, Pain in thoracic spine M54.6 [facility] [address] [facility] [id number] [address] [place] [address] Feb, Pain in thoracic spine M54.6 ; Other chronic pain G89.29 ; Chronic obstructive pulmonary disease, unspecified J44.9 and Periumbilical hernia K42.9 [place] [address] [facility] [id number] [address] [place] [address] Jan, Pain in thoracic spine M54.6 [place] [address] [facility] [id number] [address] [place] [address] Jan, Chronic obstructive pulmonar y disease, unspecified J44.9 ; Encounter for immunization Z23 ; Screening, lipid Z13.220 ; Renal insufficiency N28.9 ; Pain in thoracic spine M54.6 and Other chronic pain G89.29 [facility] [address] [facility] [id number] [address] [place] [address] Sep, Irritation of right eye H57. 8 [place] [address] [facility] [id number] [address] [place] [address] May, Chronic obstructive pulmonar y disease, unspecified COPD type J44.9 [facility] [address] [facility] [id number] [address] [place] [address] March, [facility] [address] [place] [id number] [place] [address] Oct, Medicare annual wellness vis it, subsequent Z00.00 ; Encounter for immunization Z23 and S/P cholecystectomy Z90.49 [facility] [address] [facility] [id number] [address] [place] [address] Oct, [facility] [address] [place] [id number] [address] [place] [address] Sep, [facility] [address] [facility] [id number] [address] [place] [address] Aug, Wheezing R06.2 and Community acquired pneumonia J18.9 [facility] [address] [facility] [id number] [address] [place] [address] March, Shoulder fracture, right, wi th routine healing, subsequent encounter S42.91XD [facility] [address] [place] [address] Feb, Shoulder fracture, right S42 .91XA [facility] [address] [address] Feb, Shoulder pain M25.519 [facility] [address] [place] [id number] [place] [address] Feb, [facility] [address] [address] Feb, Right shoulder pain M25.511 [facility] [address] [address] Feb, [facility] [address] [address] Jan, Renal insufficiency N28.9 [facility] [address] [place] [address] Dec, [facility] [address] [address] Dec, Bronchitis J40 [facility] [id number] [place] [address] Dec, [facility] [address] [place] [id number] [place] [address] Dec, [facility] [address] [place] [id number] [address] [place] [address] Nov, [facility] [address] [place] [id number] [address] [place] [address] Oct, Renal insufficiency N28.9 [facility] [address] [address] 11 Oct, 2015 Screening, lipid Z13.220 [facility] [address] [address] 10 Oct, 2015 Chronic obstructive pulmonar y disease, unspecified COPD type J44.9 ; Gastroesophageal reflux disease, esophagitis presence not specified K21.9 ; Dysthymia F34.1 and Screening, lipid Z13.220 [facility] [address] [address] Jun, [facility] [address] [address] Jun, Sleep apnea 780.57 and COPD (chronic obstructive pulmonary disease) 496 [facility] [address] [place] [id number] [address] [place] [address] Apr, COPD (chronic obstructive pu lmonary disease) 496 [facility] [address] [address] Feb, [facility] [address] [address] Feb, [facility] [address] [place] [id number] [address] [place] [address] Nov, [facility] [address] [place] [id number] [place] [address] Nov, [facility] [address] [place] [id number] [address] [place] [address] Nov, [facility] [address] [place] [id number] [address] [place] [address] Nov, [facility] [address] [place] [id number] [address] [place] [address] Oct, [facility] [address] [id number] [address] [place] [address], [place] [address] Oct, [facility] [address] [id number] [address] [place] [address], [place] [address] Oct, [facility] [address] [id number] [address] [place] [address], [place] [address] Oct, [facility] [address] [id number] [address] [place] [address], [place] [address] Oct, [facility] [address] [id number] [address] [place] [address], [place] [address] Oct, [facility] [address] [id number] [address] [place] [address], [place] [address] Oct, [facility] [address] [id number] [address] [place] [address], [place] [address] Oct, [facility] [address] [id number] [address] [place] [address], [place] [address] March, [facility] [address] [id number] [address] [place] [address], [place] [address] March, [facility] [address] [id number] [address] [place] [address], [place] [address] March, [facility] [address] [id number] [address] [place] [address], [place] [address] March, [facility] [address] [id number] [address] [place] [address], [place] [address] Feb, [facility] [address] [id number] [address] [place] [address], [place] [address] Feb, [facility] [address] [id number] [address] [place] [address], [place] [address] Feb, [facility] [address] [id number] [address] [place] [address], [place] [address] Feb, [facility] [address] [id number] [address] [place] [address], [place] [address] Feb, [facility] [address] [id number] [address] [place] [address], [place] [address] Feb, [facility] [address] [id number] [address] [place] [address], [place] [address] Jan, [facility] [address] [id number] [address] [place] [address], [place] [address] Jan, [facility] [address] [id number] [address] [place] [address], [place] [address] Nov, [facility] [address] [id number] [address] [place] [address], [place] [address] Nov, [facility] [address] [id number] [address] [place] [address], [place] [address] Nov, [facility] [address] [id number] [address] [place] [address], [place] [address] Aug, [facility] [address] [id number] [address] [place] [address], [place] [address] Aug, [facility] [address] [id number] [address] [place] [address], [place] [address] Aug, [facility] [address] [id number] [address] [place] [address], [place] [address] Jun, [facility] [address] [id number] [address] [place] [address], [place] [address] Jun, [facility] [address] [id number] [address] [place] [address], [place] [address] Apr, [facility] [address] [id number] [address] [place] [address], [place] [address] Apr, [facility] [address] [id number] [address] [place] [address], [place] [address] March, [facility] [address] [id number] [address] [place] [address], [place] [address] Feb, [facility] [address] [id number] [address] [place] [address], [place] [address] Feb, [facility] [address] [id number] [address] [place] [address], [place] [address] Jan, [facility] [address] [id number] [address] [place] [address], [place] [address] Dec, [facility] [address] [id number] [address] [place] [address], [place] [address] Dec, [facility] [address] [id number] [address] [place] [address], [place] [address] Dec, [facility] [address] [id number] [address] [place] [address], [place] [address] Nov, [facility] [address] [id number] [address] [place] [address], [place] [address] Nov, [facility] [address] [id number] [address] [place] [address], [place] [address] Nov, [facility] [address] [id number] [address] [place] [address], [place] [address] Oct, [facility] [address] [id number] [address] [place] [address], [place] [address] Oct, [facility] [address] [id number] [address] [place] [address], [place] [address] Sep, [facility] [address] [id number] [address] [place] [address], [place] [address] Sep, [facility] [address] [id number] [address] [place] [address], [place] [address] Aug, [facility] [address] [id number] [address] [place] [address], [place] [address] Jul, [facility] [address] [id number] [address] [place] [address], [place] [address] May, [facility] [address] [id number] [address] [place] [address], [place] [address] May, [facility] [address] [id number] [address] [place] [address], [place] [address] March, [facility] [address] [id number] [address] [place] [address], [place] [address] Nov, [facility] [address] [id number] [address] [place] [address], [place] [address] Oct, [facility] [address] [id number] [address] [place] [address], [place] [address] Sep, [facility] [address] [id number] [address] [place] [address], [place] [address] Sep, [facility] [address] [id number] [address] [place] [address], [place] [address] Sep, [facility] [address] [id number] [address] [place] [address], [place] [address] Aug, [facility] [address] [id number] [address] [place] [address], [place] [address] Aug, [facility] [address] [id number] [address] [place] [address], [place] [address] 21 Oct, 2010 [facility] [address] [id number] [address] [place] [address], [place] [address] 16 Oct, 2010 [facility] [address] [id number] [address] [place] [address], [place] [address] 16 Oct, 2010 [facility] [address] [id number] [address] [place] [address], [place] [address] 18 Aug, 2010 [facility] [address] [id number] [address] [place] [address], [place] [address] 14 Aug, 2010 [facility] [address] [id number] [address] [place] [address], [place] [address] 14 Aug, 2010 [facility] [address] [id number] [address] [place] [address], [place] [address] 02 Oct, 2009 [facility] [address] [id number] [address] [place] [address] Sep, [facility] [address] [facility] [id number] [address] [place] [address] Sep, [facility] [address] [facility] [id number] [address] [place] [address] 16 Jul, 2009 IMMUNIZATIONS No Known Immunizations [...]
--- OUTSIDE RECORDS SUMMARY | 2020-04-10 09:04 | XMS REPORT ---
Author Author [facility] Address [address] [place] [address] Care Team Providers Care Autoglazier Name Role Phone PATRICIA JARAMILLO Unavailable PROBLEMS ALLERGIES No Information ENCOUNTERS IMMUNIZATIONS No Known Immunizations SOCIAL HISTORY No smoking Hx information available REASON FOR VISIT PLAN OF CARE VITAL SIGNS MEDICATIONS Unknown Medications RESULTS No Results PROCEDURES INSTRUCTIONS MEDICATIONS ADMINISTERED No Known Medications MEDICAL (GENERAL) HISTORY
--- OUTSIDE RECORDS SUMMARY | 2020-04-10 09:04 | XMS REPORT ---
Author Author Aldo JARAMILLO Organization [facility] Address [address] [place] [address] Care Team Providers Care Service Captain Name Role Phone PATRICIA JARAMILLO Unavailable PROBLEMS Type Condition ICD9-CM Code TSY04-ME Code Onset Dates Condition S tatus SNOMED Code Problem Mammogram declined Z53.20 Active 1 [id number] Problem Tobacco abuse Z72.0 Active 450241 05 Problem Shoulder fracture, right S42.91XA Activ e 41676385 Problem Obstructive sleep apnea syndrome G47.33 Active 63740458 Problem Body mass index (BMI) 45.0-49.9, adult Z68.42 Active 618028901 Problem S/P cholecystectomy Z90.49 Active 398646792 Problem Chronic obstructive pulmonary disease, unspecified J44.9 Active 38816247 Problem Other chronic pain G89.29 Active 8 5507576 Problem Essential hypertension I10 Active 99566814 ALLERGIES No Information ENCOUNTERS Encounter Location Date Diagnosis [place] [id number] [place] [id number] [place] [address] Jun, Pain in thoracic spine M54.6 [facility] [id number] [address] [place] [id number] 14 Jun, 2019 Encounter for Medicare annua l wellness exam Z00.00 ; Chronic obstructive pulmonary disease, unspecified J44.9 ; Essential hypertension I10 ; Other chronic pain G89.29 ; Morbid obesity E66.01 ; Status post arthroscopic knee surgery Z98.890 and Obstructive sleep apnea syndrome G47.33 [facility] [address] [id number] [address] [place] [address] May, Pain in thoracic spine M54.6 [facility] [address] [id number] [address] [place] [address] Apr, Pain in thoracic spine M54.6 [facility] [address] [id number] [address] [place] [address] Apr, Acute pain of right knee M25 .561 [facility] [address] [id number] [address] [place] [address] March, Pain in thoracic spine M54.6 [facility] [address] [id number] [address] [place] [address] March, Right medial knee pain M25.5 61 ; Pain in thoracic spine M54.6 and Morbid obesity E66.[address] [facility] [address] [id number] [address] [place] [address] March, Acute pain of right knee M25 .561 and Morbid obesity E66.01 [facility] [address] [id number] [address] [place] [address] Feb, [facility] [address] [id number] [address] [place] [address] Feb, Pain in thoracic spine M54.6 [facility] [address] [id number] [address] [place] [address] Jan, [facility] [address] [id number] [address] [place] [address] Jan, Pain in thoracic spine M54.6 [facility] [address] [id number] [address] [place] [address] Dec, Pain in thoracic spine M54.6 [facility] [address] [id number] [address] [place] [address] Dec, Chronic obstructive pulmonar y disease, unspecified J44.9 ; Other chronic pain G89.29 and BMI 40.0-44.9, adult Z68.41 [facility] [address] [id number] [address] [place] [id number] Dec, [facility] [address] [id number] [address] [place] [address] Nov, Pain in thoracic spine M54.6 [facility] [address] [id number] [address] [place] [address] Nov, [facility] [address] [id number] [address] [place] [address] Nov, Pain in thoracic spine M54.6 [facility] [address] [id number] [address] [place] [address] Oct, [facility] [address] [id number] [address] [place] [address] Oct, [facility] [address] [id number] [address] [place] [address] Oct, Pain in thoracic spine M54.6 [facility] [address] [id number] [address] [place] [id number] Sep, Pain in thoracic spine M54.6 ; BMI 40.0-44.9, adult Z68.41 and History of tobacco use Z87.891 [facility] [address] [id number] [address] [place] [address] Sep, [facility] [address] [id number] [address] [place] [address] Sep, Pain in thoracic spine M54.6 [facility] [address] [id number] [address] [place] [address] Sep, [facility] [address] [id number] [address] [place] [address] Aug, Chronic obstructive pulmonar y disease, unspecified J44.9 [facility] [address] [id number] [address] [place] [address] Aug, [facility] [address] [id number] [address] [place] [address] Aug, Pain in thoracic spine M54.6 [facility] [address] [id number] [address] [place] [address] 02 Aug, 2018 Encounter for immunization Z 23 [facility] [address] [id number] [address] [place] [address] 14 Jul, 2018 Pain in thoracic spine M54.6 [facility] [address] [id number] [address] [place] [address] Jun, [facility] [address] [id number] [address] [place] [address] Jun, Therapeutic drug monitoring Z51.81 ; Pain in thoracic spine M54.6 and BMI 40.0-44.9, adult Z68.41 [facility] [address] [id number] [address] [place] [address] Jun, [facility] [address] [id number] [address] [place] [address] Jun, Pain in thoracic spine M54.6 [facility] [address] [id number] [address] [place] [address] May, Pain in thoracic spine M54.6 [facility] [address] [id number] [address] [place] [address] May, [facility] [address] [id number] [address] [place] [address] Apr, [facility] [address] [id number] [address] [place] [address] Apr, Pain in thoracic spine M54.6 [facility] [address] [id number] [address] [place] [address] Apr, [facility] [address] [id number] [address] [place] [address] Apr, Medicare annual wellness vis it, initial Z00.00 ; BMI 40.0-44.9, adult Z68.41 ; Chronic obstructive pulmonary disease, unspecified J44.9 ; Other chronic pain G89.29 and Essential hypertension I10 [facility] [address] [facility] [id number] [address] [place] [address] March, Pain in thoracic spine M54.6 [facility] [address] [facility] [id number] [address] [place] [address] Feb, Pain in thoracic spine M54.6 [facility] [address] [facility] [id number] [address] [place] [address] Feb, Pain in thoracic spine M54.6 ; Other chronic pain G89.29 ; Chronic obstructive pulmonary disease, unspecified J44.9 and Periumbilical hernia K42.9 [place] [address] [facility] [id number] [address] [place] [address] Jan, Pain in thoracic spine M54.6 [place] [address] [facility] [id number] [address] [place] [address] Jan, Chronic obstructive pulmonar y disease, unspecified J44.9 ; Encounter for immunization Z23 ; Screening, lipid Z13.220 ; Renal insufficiency N28.9 ; Pain in thoracic spine M54.6 and Other chronic pain G89.[address] [facility] [address] [facility] [id number] [address] [place] [address] Sep, Irritation of right eye H57. 8 [place] [address] [facility] [id number] [address] [place] [address] May, Chronic obstructive pulmonar y disease, unspecified COPD type J44.9 [facility] [address] [facility] [id number] [address] [place] [address] March, [facility] [address] [place] [id number] [place] [address] Oct, Medicare annual wellness vis it, subsequent Z00.00 ; Encounter for immunization Z23 and S/P cholecystectomy Z90.49 [facility] [address] [facility] [id number] [address] [place] [address] Oct, [facility] [address] [id number] [address] [place] [address] Sep, [facility] [address] [facility] [id number] [address] [place] [address] Aug, Wheezing R06.2 and Community acquired pneumonia J18.9 [facility] [address] [facility] [id number] [address] [place] [id number] March, Shoulder fracture, right, wi th routine healing, subsequent encounter S42.91XD [facility] [address] [place] [address] Feb, Shoulder fracture, right S42 .91XA [facility] [address] [address] Feb, Shoulder pain M25.[address] [facility] [address] [place] [id number] [place] [address] Feb, [facility] [address] [address] Feb, Right shoulder pain M25.511 [facility] [address] [address] Feb, [facility] [address] [address] Jan, Renal insufficiency N28.9 [facility] [id number] [place] [address] Dec, [facility] [address] [address] Dec, Bronchitis J40 [facility] [address] [place] [address] Dec, [facility] [address] [place] [id number] [place] [address] Dec, [facility] [address] [place] [address] [id number] [address] [place] [address] Nov, [facility] [address] [place] [address] [id number] [address] [place] [address] Oct, Renal insufficiency N28.9 [facility] [address] [id number] 11 Oct, 2015 Screening, lipid Z13.220 [facility] [address] [address] 10 Oct, 2015 Chronic obstructive pulmonar y disease, unspecified COPD type J44.9 ; Gastroesophageal reflux disease, esophagitis presence not specified K21.9 ; Dysthymia F34.1 and Screening, lipid Z13.220 [facility] [address] [address] Jun, [facility] [address] [address] Jun, Sleep apnea 780.57 and COPD (chronic obstructive pulmonary disease) 496 [facility] [address] [place] [address] [id number] [address] [place] [address] Apr, COPD (chronic obstructive pu lmonary disease) 496 [facility] [address] [address] Feb, [facility] [address] [address] Feb, [facility] [address] [place] [address] [id number] [address] [place] [address] Nov, [facility] [address] [id number] [place] [address] Nov, [facility] [address] [place] [id number] [address] [place] [address] Nov, [facility] [address] [id number] [address] [place] [address] Nov, [facility] [address] [id number] [address] [place] [address] Oct, [facility] [address] [id number] [address] [place] [address], [place] [address] Oct, [facility] [address] [id number] [address] [place] [address], [place] [address] Oct, [facility] [address] [id number] [address] [place] [address], [place] [address] Oct, [facility] [address] [id number] [address] [place] [address], [place] [address] Oct, [facility] [address] [id number] [address] [place] [address], [place] [address] Oct, [facility] [address] [id number] [address] [place] [address], [place] [address] Oct, [facility] [address] [id number] [address] [place] [address], [place] [address] Oct, [facility] [address] [id number] [address] [place] [address], [place] [address] March, [facility] [address] [id number] [address] [place] [address], [place] [address] March, [facility] [address] [id number] [address] [place] [address], [place] [address] March, [facility] [address] [id number] [address] [place] [address], [place] [address] March, [facility] [address] [id number] [address] [place] [address], [place] [address] Feb, [facility] [address] [id number] [address] [place] [address], [place] [address] Feb, [facility] [address] [id number] [address] [place] [address], [place] [address] Feb, [facility] [address] [id number] [address] [place] [address], [place] [address] Feb, [facility] [address] [id number] [address] [place] [address], [place] [address] Feb, [facility] [address] [id number] [address] [place] [address], [place] [address] Feb, [facility] [address] [id number] [address] [place] [address], [place] [address] Jan, [facility] [address] [id number] [address] [place] [address], [place] [address] Jan, [facility] [address] [id number] [address] [place] [address], [place] [address] Nov, [facility] [address] [id number] [address] [place] [address], [place] [address] Nov, [facility] [address] [id number] [address] [place] [address], [place] [address] Nov, [facility] [address] [id number] [address] [place] [address], [place] [address] Aug, [facility] [address] [id number] [address] [place] [address], [place] [address] Aug, [facility] [address] [id number] [address] [place] [address], [place] [address] Aug, [facility] [address] [id number] [address] [place] [address], [place] [address] Jun, [facility] [address] [id number] [address] [place] [address], [place] [address] Jun, [facility] [address] [id number] [address] [place] [address], [place] [address] Apr, [facility] [address] [id number] [address] [place] [address], [place] [address] Apr, [facility] [address] [id number] [address] [place] [address], [place] [address] March, [facility] [address] [id number] [address] [place] [address], [place] [address] Feb, [facility] [address] [id number] [address] [place] [address], [place] [address] Feb, [facility] [address] [id number] [address] [place] [address], [place] [address] Jan, [facility] [address] [id number] [address] [place] [address], [place] [address] Dec, [facility] [address] [id number] [address] [place] [address], [place] [address] Dec, [facility] [address] [id number] [address] [place] [address], [place] [address] Dec, [facility] [address] [id number] [address] [place] [address], [place] [address] Nov, [facility] [address] [id number] [address] [place] [address], [place] [address] Nov, [facility] [address] [id number] [address] [place] [address], [place] [address] Nov, [facility] [address] [id number] [address] [place] [address], [place] [address] Oct, [facility] [address] [id number] [address] [place] [address], [place] [address] Oct, [facility] [address] [id number] [address] [place] [address], [place] [address] Sep, [facility] [address] [id number] [address] [place] [address], [place] [address] Sep, [facility] [address] [id number] [address] [place] [address], [place] [address] Aug, [facility] [address] [id number] [address] [place] [address], [place] [address] Jul, [facility] [address] [id number] [address] [place] [address], [place] [address] May, [facility] [address] [id number] [address] [place] [address], [place] [address] May, [facility] [address] [id number] [address] [place] [address], [place] [address] March, [facility] [address] [id number] [address] [place] [address], [place] [address] Nov, [facility] [address] [id number] [address] [place] [address], [place] [address] Oct, [facility] [address] [id number] [address] [place] [address], [place] [address] Sep, [facility] [address] [id number] [address] [place] [address], [place] [address] Sep, [facility] [address] [id number] [address] [place] [address], [place] [address] Sep, [facility] [address] [id number] [address] [place] [address], [place] [address] Aug, [facility] [address] [id number] [address] [place] [address], [place] [address] Aug, [facility] [address] [id number] [address] [place] [address], [place] [address] 21 Oct, 2010 [facility] [address] [id number] [address] [place] [address], [place] [address] 16 Oct, 2010 [facility] [address] [id number] [address] [place] [address], [place] [address] 16 Oct, 2010 [facility] [address] [id number] [address] [place] [address], [place] [address] 18 Aug, 2010 [facility] [address] [id number] [address] [place] [address], [place] [address] 14 Aug, 2010 [facility] [address] [id number] [address] [place] [address], [place] [address] 14 Aug, 2010 [facility] [address] [id number] [address] [place] [address], [place] [address] 02 Oct, 2009 [facility] [address] [id number] [address] [place] [address] Sep, [facility] [address] [facility] [id number] [address] [place] [address] Sep, [facility] [address] [facility] [id number] [address] [place] [address] 16 Jul, 2009 IMMUNIZATIONS No Known Immunizations [...]
--- OUTSIDE RECORDS SUMMARY | 2020-04-10 09:04 | XMS REPORT ---
Author Author Aldo JARAMILLO Organization [facility] Address [address] [place] [address] Care Team Providers Care Insurance Attorney Name Role Phone PATRICIA JARAMILLO Unavailable PROBLEMS Type Condition ICD9-CM Code INT18-DX Code Onset Dates Condition S tatus SNOMED Code Problem Mammogram declined Z53.20 Active 1 [id number] Problem Tobacco abuse Z72.0 Active 733857 05 Problem Shoulder fracture, right S42.91XA Activ e 05934978 Problem Obstructive sleep apnea syndrome G47.33 Active 77025534 Problem Body mass index (BMI) 45.0-49.9, adult Z68.42 Active 107525341 Problem S/P cholecystectomy Z90.49 Active 914348184 Problem Chronic obstructive pulmonary disease, unspecified J44.9 Active 18880360 Problem Other chronic pain G89.29 Active 8 0165958 Problem Essential hypertension I10 Active [id number] ALLERGIES No Information ENCOUNTERS Encounter Location Date Diagnosis [place] [address] [place] [address] [id number] [address] [place] [id number] Jun, Pain in thoracic spine M54.6 [facility] [address] [id number] [address] [place] [id number] 14 Jun, 2019 Encounter for Medicare annua l wellness exam Z00.00 ; Chronic obstructive pulmonary disease, unspecified J44.9 ; Essential hypertension I10 ; Other chronic pain G89.29 ; Morbid obesity E66.01 ; Status post arthroscopic knee surgery Z98.890 and Obstructive sleep apnea syndrome G47.33 [facility] [address] [id number] [address] [place] [address] May, Pain in thoracic spine M54.6 [facility] [address] [id number] [address] [place] [phone] Apr, Pain in thoracic spine M54.6 [facility] [address] [id number] [address] [place] [address] Apr, Acute pain of right knee M25 .561 [facility] [address] [id number] [address] [place] [address] March, Pain in thoracic spine M54.6 [facility] [address] [id number] [address] [place] [address] March, Right medial knee pain M25.5 61 ; Pain in thoracic spine M54.6 and Morbid obesity E66.01 [facility] [address] [id number] [address] [place] [address] March, Acute pain of right knee M25 .561 and Morbid obesity E66.01 [facility] [address] [id number] [address] [place] [address] Feb, [facility] [address] [id number] [address] [place] [address] Feb, Pain in thoracic spine M54.6 [facility] [address] [id number] [address] [place] [address] Jan, [facility] [address] [id number] [address] [place] [address] Jan, Pain in thoracic spine M54.6 [facility] [address] [id number] [address] [place] [address] Dec, Pain in thoracic spine M54.6 [facility] [address] [id number] [address] [place] [address] Dec, Chronic obstructive pulmonar y disease, unspecified J44.9 ; Other chronic pain G89.29 and BMI 40.0-44.9, adult Z68.41 [facility] [address] [id number] [address] [place] [address] Dec, [facility] [address] [id number] [address] [place] [address] Nov, Pain in thoracic spine M54.6 [facility] [address] [id number] [address] [place] [id number] Nov, [facility] [address] [id number] [address] [place] [id number] Nov, Pain in thoracic spine M54.6 [facility] [address] [id number] [address] [place] [id number] Oct, [facility] [address] [id number] [address] [place] [id number] Oct, [facility] [address] [id number] [address] [place] [address] Oct, Pain in thoracic spine M54.6 [facility] [address] [id number] [address] [place] [address] Sep, Pain in thoracic spine M54.6 ; BMI 40.0-44.9, adult Z68.41 and History of tobacco use Z87.891 [facility] [address] [id number] [address] [place] [id number] Sep, [facility] [address] [id number] [address] [place] [id number] Sep, Pain in thoracic spine M54.6 [facility] [address] [id number] [address] [place] [address] Sep, [facility] [address] [id number] [address] [place] [phone] Aug, Chronic obstructive pulmonar y disease, unspecified J44.9 [facility] [address] [id number] [address] [place] [id number] Aug, [facility] [address] [id number] [address] [place] [id number] Aug, Pain in thoracic spine M54.6 [facility] [address] [id number] [address] [place] [id number] 02 Aug, 2018 Encounter for immunization Z 23 [facility] [address] [id number] [address] [place] [id number] 14 Jul, 2018 Pain in thoracic spine M54.6 [facility] [address] [id number] [address] [place] [address] Jun, [facility] [address] [id number] [address] [place] [address] Jun, Therapeutic drug monitoring Z51.81 ; Pain in thoracic spine M54.6 and BMI 40.0-44.9, adult Z68.41 [facility] [address] [id number] [address] [place] [address] Jun, [facility] [address] [id number] [address] [place] [address] Jun, Pain in thoracic spine M54.6 [facility] [address] [id number] [address] [place] [address] May, Pain in thoracic spine M54.6 [facility] [address] [id number] [address] [place] [phone] May, [facility] [address] [id number] [address] [place] [address] Apr, [facility] [address] [id number] [address] [place] [address] Apr, Pain in thoracic spine M54.6 [facility] [address] [id number] [address] [place] [address] Apr, [facility] [address] [id number] [address] [place] [address] Apr, Medicare annual wellness vis it, initial Z00.00 ; BMI 40.0-44.9, adult Z68.41 ; Chronic obstructive pulmonary disease, unspecified J44.9 ; Other chronic pain G89.29 and Essential hypertension I10 [facility] [address] [facility] [id number] [address] [place] [address] March, Pain in thoracic spine M54.6 [facility] [address] [facility] [id number] [address] [place] [address] Feb, Pain in thoracic spine M54.6 [facility] [address] [facility] [id number] [address] [place] [address] Feb, Pain in thoracic spine M54.6 ; Other chronic pain G89.29 ; Chronic obstructive pulmonary disease, unspecified J44.9 and Periumbilical hernia K42.9 [place] [address] [facility] [id number] [address] [place] [address] Jan, Pain in thoracic spine M54.6 [place] [address] [facility] [id number] [address] [place] [address] Jan, Chronic obstructive pulmonar y disease, unspecified J44.9 ; Encounter for immunization Z23 ; Screening, lipid Z13.220 ; Renal insufficiency N28.9 ; Pain in thoracic spine M54.6 and Other chronic pain G89.29 [facility] [address] [facility] [id number] [address] [place] [address] Sep, Irritation of right eye H57. 8 [place] [address] [facility] [id number] [address] [place] [address] May, Chronic obstructive pulmonar y disease, unspecified COPD type J44.9 [facility] [address] [facility] [id number] [address] [place] [address] March, [facility] [address] [id number] [address] [place] [id number] Oct, Medicare annual wellness vis it, subsequent Z00.00 ; Encounter for immunization Z23 and S/P cholecystectomy Z90.49 [facility] [address] [facility] [id number] [address] [place] [address] Oct, [facility] [address] [id number] [address] [place] [id number] Sep, [facility] [address] [facility] [id number] [address] [place] [address] Aug, Wheezing R06.2 and Community acquired pneumonia J18.9 [facility] [address] [facility] [id number] [address] [place] [address] March, Shoulder fracture, right, wi th routine healing, subsequent encounter S42.91XD [facility] [address] [place] [address] Feb, Shoulder fracture, right S42 .91XA [facility] [address] [address] Feb, Shoulder pain M25.519 [facility] [address] [place] [id number] [place] [address] Feb, [facility] [address] [address] Feb, Right shoulder pain M25.511 [facility] [address] [address] Feb, [facility] [address] [address] Jan, Renal insufficiency N28.9 [facility] [id number] [place] [address] Dec, [facility] [address] [address] Dec, Bronchitis J40 [facility] [address] [place] [address] Dec, [facility] [id number] [place] [address] Dec, [facility] [address] [place] [id number] [address] [place] [id number] Nov, [facility] [address] [place] [address] [id number] [address] [place] [phone] Oct, Renal insufficiency N28.9 [facility] [address] [address] 11 Oct, 2015 Screening, lipid Z13.220 [facility] [address] [address] 10 Oct, 2015 Chronic obstructive pulmonar y disease, unspecified COPD type J44.9 ; Gastroesophageal reflux disease, esophagitis presence not specified K21.9 ; Dysthymia F34.1 and Screening, lipid Z13.220 [facility] [address] [address] Jun, [facility] [address] [address] Jun, Sleep apnea 780.57 and COPD (chronic obstructive pulmonary disease) 496 [facility] [address] [place] [id number] [address] [place] [address] Apr, COPD (chronic obstructive pu lmonary disease) 496 [facility] [address] [address] Feb, [facility] [address] [address] Feb, [facility] [address] [place] [id number] [address] [place] [address] Nov, [facility] [address] [id number] [address] [place] [phone] Nov, [facility] [address] [place] [address] [id number] [address] [place] [address] Nov, [facility] [address] [id number] [address] [place] [id number] Nov, [facility] [address] [place] [address] [id number] [address] [place] [address] Oct, [facility] [address] [id number] [address] [place] [address], [place] [address] Oct, [facility] [address] [id number] [address] [place] [address], [place] [address] Oct, [facility] [address] [id number] [address] [place] [address], [place] [address] Oct, [facility] [address] [id number] [address] [place] [address], [place] [address] Oct, [facility] [address] [id number] [address] [place] [address], [place] [address] Oct, [facility] [address] [id number] [address] [place] [address], [place] [address] Oct, [facility] [address] [id number] [address] [place] [address], [place] [address] Oct, [facility] [address] [id number] [address] [place] [address], [place] [address] March, [facility] [address] [id number] [address] [place] [address], [place] [address] March, [facility] [address] [id number] [address] [place] [address], [place] [address] March, [facility] [address] [id number] [address] [place] [address], [place] [address] March, [facility] [address] [id number] [address] [place] [address], [place] [address] Feb, [facility] [address] [id number] [address] [place] [address], [place] [address] Feb, [facility] [address] [id number] [address] [place] [address], [place] [address] Feb, [facility] [address] [id number] [address] [place] [address], [place] [address] Feb, [facility] [address] [id number] [address] [place] [address], [place] [address] Feb, [facility] [address] [id number] [address] [place] [address], [place] [address] Feb, [facility] [address] [id number] [address] [place] [address], [place] [address] Jan, [facility] [address] [id number] [address] [place] [address], [place] [address] Jan, [facility] [address] [id number] [address] [place] [address], [place] [address] Nov, [facility] [address] [id number] [address] [place] [address], [place] [address] Nov, [facility] [address] [id number] [address] [place] [address], [place] [address] Nov, [facility] [address] [id number] [address] [place] [address], [place] [address] Aug, [facility] [address] [id number] [address] [place] [address], [place] [address] Aug, [facility] [address] [id number] [address] [place] [address], [place] [address] Aug, [facility] [address] [id number] [address] [place] [address], [place] [address] Jun, [facility] [address] [id number] [address] [place] [address], [place] [address] Jun, [facility] [address] [id number] [address] [place] [address], [place] [address] Apr, [facility] [address] [id number] [address] [place] [address], [place] [address] Apr, [facility] [address] [id number] [address] [place] [address], [place] [address] March, [facility] [address] [id number] [address] [place] [address], [place] [address] Feb, [facility] [address] [id number] [address] [place] [address], [place] [address] Feb, [facility] [address] [id number] [address] [place] [address], [place] [address] Jan, [facility] [address] [id number] [address] [place] [address], [place] [address] Dec, [facility] [address] [id number] [address] [place] [address], [place] [address] Dec, [facility] [address] [id number] [address] [place] [address], [place] [address] Dec, [facility] [address] [id number] [address] [place] [address], [place] [address] Nov, [facility] [address] [id number] [address] [place] [address], [place] [address] Nov, [facility] [address] [id number] [address] [place] [address], [place] [address] Nov, [facility] [address] [id number] [address] [place] [address], [place] [address] Oct, [facility] [address] [id number] [address] [place] [address], [place] [address] Oct, [facility] [address] [id number] [address] [place] [address], [place] [address] Sep, [facility] [address] [id number] [address] [place] [address], [place] [address] Sep, [facility] [address] [id number] [address] [place] [address], [place] [address] Aug, [facility] [address] [id number] [address] [place] [address], [place] [address] Jul, [facility] [address] [id number] [address] [place] [address], [place] [address] May, [facility] [address] [id number] [address] [place] [address], [place] [address] May, [facility] [address] [id number] [address] [place] [address], [place] [address] March, [facility] [address] [id number] [address] [place] [address], [place] [address] Nov, [facility] [address] [id number] [address] [place] [address], [place] [address] Oct, [facility] [address] [id number] [address] [place] [address], [place] [address] Sep, [facility] [address] [id number] [address] [place] [address], [place] [address] Sep, [facility] [address] [id number] [address] [place] [address], [place] [address] Sep, [facility] [address] [id number] [address] [place] [address], [place] [address] Aug, [facility] [address] [id number] [address] [place] [address], [place] [address] Aug, [facility] [address] [id number] [address] [place] [address], [place] [address] 21 Oct, 2010 [facility] [address] [id number] [address] [place] [address], [place] [address] 16 Oct, 2010 [facility] [address] [id number] [address] [place] [address], [place] [address] 16 Oct, 2010 [facility] [address] [id number] [address] [place] [address], [place] [address] 18 Aug, 2010 [facility] [address] [id number] [address] [place] [address], [place] [address] 14 Aug, 2010 [facility] [address] [id number] [address] [place] [address], [place] [address] 14 Aug, 2010 [facility] [address] [id number] [address] [place] [address], [place] [address] 02 Oct, 2009 [facility] [address] [id number] [address] [place] [address] Sep, [facility] [address] [facility] [id number] [address] [place] [address] Sep, [facility] [address] [facility] [id number] [address] [place] [address] 16 Jul, 2009 IMMUNIZATIONS No Known Immunizations [...]
--- OUTSIDE RECORDS SUMMARY | 2020-04-10 09:07 | XMS REPORT | Continuity of Care Document ---
Author Organization Unknown Address Unknown Phone Unavailable Allergies Active Description Code Type Severity Reaction Onset Reported/Identified Relationship to Patient Clinical Status Yes Penicillins Drug Allergy 01/21/2009 Yes Penicillins Drug Allergy N/A N/A 01/21/2009 Yes flu vaccine Drug Allergy 08/24/2011 Yes Penicillins [id number] Drug Aller gy Unknown N/A 10/20/2016 Yes fluticasone [id number] Drug Aller gy Mild HIVES 05/30/2019 Yes Penicillins [id number] Drug Aller gy Mild HIVES 05/30/2019 Yes salmeterol [id number] Drug Allerg y Mild HIVES 05/30/2019 Medications There is no data. Problems Date Dx Coded Attending Type Code Diagnosis Diagnosed By 10/14/1447 ALEXA GASTON DO, Ot K43.2 INCISIONAL HERNIA WITHOUT OBSTRUCTION OR 10/14/1447 ALEXA GASTON DO Ot Z01.8 12 ENCOUNTER FOR PREPROCEDURAL LABORATORY E 10/14/1447 ALEXA GASTON DO Ot Z01.8 18 ENCOUNTER FOR OTHER PREPROCEDURAL EXAMIN 10/14/1447 ALEXA GASTON DO Ot Z11.5 9 ENCOUNTER FOR SCREENING FOR OTHER VIRAL 05/19/2008 682.9 Cell ulitis And Abscess Of Unspecified Sites 05/19/2008 PATRICIA JARAMILOL APRN S 682.9 Cellulitis And Abscess Of Unspecified Sites 05/19/2008 PATRICIA JARAMILLO APRN S 682.9 Cellulitis And Abscess Of Unspecified Sites 05/19/2008 682.9 Cell ulitis And Abscess Of Unspecified Sites 05/19/2008 682.9 Cell ulitis And Abscess Of Unspecified Sites 05/19/2008 PATRICIA JARAMILLO APRN S 682.9 Cellulitis And Abscess Of Unspecified Sites 05/19/2008 PATRICIA JARAMILLO APRN S 682.9 Cellulitis And Abscess Of Unspecified Sites 05/19/2008 YASMEEN JARAMILLO APRNNDA S 682.9 Cellulitis And Abscess Of Unspecified Sites 05/19/2008 [employer] HVAC DESIGN MECHANICAL ENGINEER, PATRICIA S 682.9 Cellulitis And Abscess Of Unspecified Sites 05/19/2008 [employer] HVAC DESIGN MECHANICAL ENGINEER, PATRICIA S 682.9 Cellulitis And Abscess Of Unspecified Sites 05/21/2008 496 COPD 05/21/2008 [employer] HVAC DESIGN MECHANICAL ENGINEER, PATRICIA S 496 COPD 05/21/2008 [employer] HVAC DESIGN MECHANICAL ENGINEER, PATRICIA S 496 COPD 05/21/2008 496 COPD 05/21/2008 496 COPD 05/21/2008 [employer] HVAC DESIGN MECHANICAL ENGINEER, PATRICIA S 496 COPD 05/21/2008 [employer] HVAC DESIGN MECHANICAL ENGINEER, PATRICIA S 496 COPD 05/21/2008 [employer] HVAC DESIGN MECHANICAL ENGINEER, PATRICIA S 496 COPD 05/21/2008 [employer] HVAC DESIGN MECHANICAL ENGINEER, PATRICIA S 496 COPD 05/21/2008 [employer] HVAC DESIGN MECHANICAL ENGINEER, PATRICIA S 496 COPD 05/23/2008 706.2 Seba ceous Cyst 05/23/2008 [employer] HVAC DESIGN MECHANICAL ENGINEER, PATRICIA S 706.2 Sebaceous Cyst 05/23/2008 [employer] HVAC DESIGN MECHANICAL ENGINEER, PATRICIA S 706.2 Sebaceous Cyst 05/23/2008 706.2 Seba ceous Cyst 05/23/2008 706.2 Seba ceous Cyst 05/23/2008 [employer] HVAC DESIGN MECHANICAL ENGINEER, PATRICIA S 706.2 Sebaceous Cyst 05/23/2008 [employer] HVAC DESIGN MECHANICAL ENGINEER, PATRICIA S 706.2 Sebaceous Cyst 05/23/2008 [employer] HVAC DESIGN MECHANICAL ENGINEER, PATRICIA S 706.2 Sebaceous Cyst 05/23/2008 [employer] HVAC DESIGN MECHANICAL ENGINEER, PATRICIA S 706.2 Sebaceous Cyst 05/23/2008 [employer] HVAC DESIGN MECHANICAL ENGINEER, PATRICIA S 706.2 Sebaceous Cyst 05/29/2008 382.9 Unsp ecified Otitis Media 05/29/2008 CLINT PADGETT, PATRICIA S 382.9 Unspecified Otitis Media 05/29/2008 YASMEEN JARAMILLO APRNNDA S 382.9 Unspecified Otitis Media 05/29/2008 382.9 Unsp ecified Otitis Media 05/29/2008 382.9 Unsp ecified Otitis Media 05/29/2008 [employer] HVAC DESIGN MECHANICAL ENGINEER, PATRICIA S 382.9 Unspecified Otitis Media 05/29/2008 [employer] HVAC DESIGN MECHANICAL ENGINEER, PATRICIA S 382.9 Unspecified Otitis Media 05/29/2008 [employer] HVAC DESIGN MECHANICAL ENGINEER, PATRICIA S 382.9 Unspecified Otitis Media 05/29/2008 [employer] HVAC DESIGN MECHANICAL ENGINEER, PATRICIA S 382.9 Unspecified Otitis Media 05/29/2008 [employer] HVAC DESIGN MECHANICAL ENGINEER, PATRICIA S 382.9 Unspecified Otitis Media 07/06/2008 698.9 Prur itus Nos 07/06/2008 [employer] HVAC DESIGN MECHANICAL ENGINEER, PATRICIA S 698.9 Pruritus Nos 07/06/2008 [employer] HVAC DESIGN MECHANICAL ENGINEER, PATRICIA S 698.9 Pruritus Nos 07/06/2008 698.9 Prur itus Nos 07/06/2008 698.9 Prur itus Nos 07/06/2008 [employer] HVAC DESIGN MECHANICAL ENGINEER, PATRICIA S 698.9 Pruritus Nos 07/06/2008 [employer] HVAC DESIGN MECHANICAL ENGINEER, PATRICIA S 698.9 Pruritus Nos 07/06/2008 [employer] HVAC DESIGN MECHANICAL ENGINEER, PATRICIA S 698.9 Pruritus Nos 07/06/2008 [employer] HVAC DESIGN MECHANICAL ENGINEER, PATRICIA S 698.9 Pruritus Nos 07/06/2008 [employer] HVAC DESIGN MECHANICAL ENGINEER, PATRICIA S 698.9 Pruritus Nos 09/13/2008 530.81 GERD 09/13/2008 [employer] HVAC DESIGN MECHANICAL ENGINEER, PATRICIA S 530.81 GERD 09/13/2008 CLINT MARROQUINN, PATRICIA S 530.81 GERD 09/13/2008 530.81 GERD 09/13/2008 530.81 GERD 09/13/2008 [employer] HVAC DESIGN MECHANICAL ENGINEER, PATRICIA S 530.81 GERD 09/13/2008 [employer] HVAC DESIGN MECHANICAL ENGINEER, PATRICIA S 530.81 GERD 09/13/2008 [employer] HVAC DESIGN MECHANICAL ENGINEER, PATRICIA S 530.81 GERD 09/13/2008 [employer] HVAC DESIGN MECHANICAL ENGINEER, PATRICIA S 530.81 GERD 09/13/2008 [employer] HVAC DESIGN MECHANICAL ENGINEER, PATRICIA S 530.81 GERD 10/16/2009 466.0 ACUT E BRONCHITIS 10/16/2009 CLINT MARROQUINN PATRICIA S 466.0 ACUTE BRONCHITIS 10/16/2009 CLINT PADGETT, PATRICIA S 466.0 ACUTE BRONCHITIS 10/16/2009 466.0 ACUT E BRONCHITIS 10/16/2009 466.0 ACUT E BRONCHITIS 10/16/2009 [employer] HVAC DESIGN MECHANICAL ENGINEER, PATRICIA S 466.0 ACUTE BRONCHITIS 10/16/2009 [employer] HVAC DESIGN MECHANICAL ENGINEER, PATRICIA S 466.0 ACUTE BRONCHITIS 10/16/2009 [employer] HVAC DESIGN MECHANICAL ENGINEER, PATRICIA S 466.0 ACUTE BRONCHITIS 10/16/2009 [employer] HVAC DESIGN MECHANICAL ENGINEER, PATRICIA S 466.0 ACUTE BRONCHITIS 10/16/2009 [employer] HVAC DESIGN MECHANICAL ENGINEER, PATRICIA S 466.0 ACUTE BRONCHITIS 08/02/2010 Ot 805.4 08/02/2010 Ot 959.19 08/02/2010 Ot E000.8 08/02/2010 Ot E849.0 08/02/2010 Ot E880.9 08/28/2010 724.2 LUMBAGO 08/28/2010 CLINT PADGETT PATRICIA S 724.2 LUMBAGO 08/28/2010 [employer]INT PADGETT PATRICIA S 724.2 LUMBAGO 08/28/2010 724.2 LUMBAGO 08/28/2010 724.2 LUMBAGO 08/28/2010 CLINT PADGETT PATRICIA S 724.2 LUMBAGO 08/28/2010 [employer] HVAC DESIGN MECHANICAL ENGINEER, PATRICIA S 724.2 LUMBAGO 08/28/2010 [employer] HVAC DESIGN MECHANICAL ENGINEER PATRICIA S 724.2 LUMBAGO 08/28/2010 [employer] HVAC DESIGN MECHANICAL ENGINEER, PATRICIA S 724.2 LUMBAGO 08/28/2010 [employer] HVAC DESIGN MECHANICAL ENGINEER, PATRICIA S 724.2 LUMBAGO 08/20/2011 V04.81 FLU DX (MEDICARE ONLY) 08/20/2011 YASMEEN JARAMILLO APRNNDA S V04.81 FLU DX (MEDICARE ONLY) 08/20/2011 GUS JARAMILLO APRNA S V04.81 FLU DX (MEDICARE ONLY) 08/20/2011 V04.81 FLU DX (MEDICARE ONLY) 08/20/2011 V04.81 FLU DX (MEDICARE ONLY) 08/20/2011 GUS JARAMILLO APRNA S V04.81 FLU DX (MEDICARE ONLY) 08/20/2011 [employer] HVAC DESIGN MECHANICAL ENGINEER, PATRICIA S V04.81 FLU DX (MEDICARE ONLY) 08/20/2011 [employer] HVAC DESIGN MECHANICAL ENGINEER, PATRICIA S V04.81 FLU DX (MEDICARE ONLY) 08/20/2011 [employer] HVAC DESIGN MECHANICAL ENGINEER, PATRICIA S V04.81 FLU DX (MEDICARE ONLY) 08/20/2011 [employer] HVAC DESIGN MECHANICAL ENGINEER, PATRICIA S V04.81 FLU DX (MEDICARE ONLY) 04/06/2013 V76.12 EVONNE MOGRAM SCREENING 04/06/2013 [employer] HVAC DESIGN MECHANICAL ENGINEER, PATRICIA S V76.12 MAMMOGRAM SCREENING 04/06/2013 [employer] HVAC DESIGN MECHANICAL ENGINEER, PATRICIA S V76.12 MAMMOGRAM SCREENING 04/06/2013 [employer] HVAC DESIGN MECHANICAL ENGINEER, PATRICIA S V76.12 MAMMOGRAM SCREENING 04/06/2013 [employer] HVAC DESIGN MECHANICAL ENGINEER, PATRICIA S V76.12 MAMMOGRAM SCREENING 04/06/2013 [employer] HVAC DESIGN MECHANICAL ENGINEER, PATRICIA S V76.12 MAMMOGRAM SCREENING 11/30/2013 [employer] HVAC DESIGN MECHANICAL ENGINEER, PATRICIA S 786.2 COUGH 11/30/2013 [employer] HVAC DESIGN MECHANICAL ENGINEER, PATRICIA S 786.2 COUGH 11/30/2013 [employer] HVAC DESIGN MECHANICAL ENGINEER, PATRICIA S 786.2 COUGH 11/30/2013 [employer] HVAC DESIGN MECHANICAL ENGINEER, PATRICIA S 786.2 COUGH 10/16/2014 [employer] HVAC DESIGN MECHANICAL ENGINEER, PATRICIA S V15.82 NICOTINE ABUSE 10/16/2014 [employer] HVAC DESIGN MECHANICAL ENGINEER, PATRICIA S V15.82 NICOTINE ABUSE 12/21/2014 PATRICIA JARAMILLO NURSE LEADER Ot 793.89 12/21/2014 GUS JARAMILLOA NURSE LEADER Ot V76.12 12/21/2014 GUS JARAMILLOA NURSE LEADER Ot 793.80 12/26/2014 GUS JARAMILLOA NURSE LEADER Ot 793.89 12/26/2014 GUS JARAMILLOA NURSE LEADER Ot V76.12 12/26/2014 GUS JARAMILLOA NURSE LEADER Ot 793.80 12/27/2014 LEANDRO NELSON DO Ot 278. 00 12/27/2014 LEANDRO NELSON DO Ot 496 12/27/2014 LEANDRO NELSON DO Ot 780. 54 12/27/2014 LESLIE DO LEANDRO M Ot 799. 02 02/15/2015 LEANDRO NELSON DO M Ot 327. 23 OBSTRUCTIVE SLEEP APNEA (ADULT) (PEDIATR 04/12/2015 LEANDRO NELSON DO M Ot 278. 00 04/12/2015 LESLIE DOLEANDRO M Ot 496 04/12/2015 LESLIE DO, LEANDRO M Ot 780. 54 04/12/2015 ANUPAMA NELSON DOSON M Ot 799. 02 2015 PATRICIA JARAMILLOP Ot 793.89 2015 PATRICIA JARAMILLOP Ot V76.12 2015 PATRICIA JARAMILLOP Ot 793.80 2015 LEANDRO NELSON DO M Ot 278. 00 2015 LEANDRO NELSON DO M Ot 496 2015 ANUPAMA NELSON DOSON M Ot 780. 54 2015 ANUPAMA NELSON DOSON M Ot 799. 02 2015 ANUPAMA NELSON DOSON M Ot 278. 00 2015 LESLIE DO, LEANDRO M Ot 496 2015 LESLIE DO, LEANDRO M Ot 780. 54 2015 LESLIE SHAH, LEANDRO M Ot 799. 02 05/08/2015 LEANDRO NELSON DO M Ot 278. 00 05/08/2015 LEANDRO NELSON DO M Ot 496 05/08/2015 LESLIEANUPAMA SHERMAN DOSON M Ot 780. 54 05/08/2015 ANUPAMA NELSON DOSON M Ot 799. 02 05/13/2015 PATRICIA JARAMILLOP Ot 793.89 05/13/2015 PATRICIA JARAMILLOP Ot V76.12 05/13/2015 PATRICIA JARAMILLOP Ot 793.80 05/13/2015 LESLIE DOANUPAMALEANDRO M Ot 278. 00 05/13/2015 LESLIE DOANUPAMALEANDRO M Ot 496 05/13/2015 LESLIE DOANUPAMALEANDRO M Ot 780. 54 05/13/2015 LESLIE DOANUPAMALEANDRO M Ot 799. 02 05/13/2015 ANUPAMA NELSON DOSON M Ot 278. 00 05/13/2015 ANUPAMA NELSON DOSON M Ot 496 05/13/2015 LESLIE SHAH LEANDRO M Ot 780. 54 05/13/2015 LESLIE SHAH LEANDRO M Ot 799. 02 07/08/2015 LESLIE SHAH LEANDRO M Ot 278. 00 OBESITY, NOS 07/08/2015 LESLIE DO LEANDRO M Ot 496 CHR AIRWAY OBSTRUCT NEC 07/08/2015 LESLIE SHAH LEANDRO M Ot 780. 54 HYPERSOMNIA, UNSPECIFIED 07/08/2015 LESLIE SHAH LEANDRO M Ot 799. 02 HYPOXEMIA 07/11/2015 LESLIE SHAH LEANDRO M Ot 278. 00 07/11/2015 LESLIE SHAH LEANDRO M Ot 496 07/11/2015 LESLIE SHAH LEANDRO Godinez Ot 780. 54 07/11/2015 LESLIE SHAH LEANDRO Godinez Ot 799. 02 07/11/2015 LESLIE SHAH LEANDRO Godinez Ot 278. 00 07/11/2015 LESLIE SHAH LEANDRO M Ot 496 07/11/2015 LESLIE SHAH LEANDRO Godinez Ot 780. 54 07/11/2015 LESLIE SHAH LEANDRO M Ot 799. 02 07/12/2015 LESLIE SHAH LEANDRO Godinez Ot 278. 00 07/12/2015 LESLIE SHAH LEANDRO M Ot 496 07/12/2015 LESLIE SHAH LEANDRO M Ot 780. 54 07/12/2015 LESLIE SHAH LEANDRO M Ot 799. 02 08/14/2015 LESLIE SHAH LEANDRO M Ot 278. 00 OBESITY, NOS 08/14/2015 LESLIE SHAH LEANDRO M Ot 496 CHR AIRWAY OBSTRUCT NEC 08/14/2015 LESLIE SHAH LEANDRO Gretchen Ot 780. 54 HYPERSOMNIA, UNSPECIFIED 08/14/2015 LESLIE SHAH LEANDRO Godinez Ot 799. 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 PULMONARY DISEASE, U 03/23/2016 Ot R06.02 OSIRIS RTNESS OF BREATH 03/23/2016 MARY ALCANTARA HVAC DESIGN MECHANICAL ENGINEER Ot M25.511 PAIN IN RIGHT SHOULDER 03/23/2016 Ot 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 00 10/02/2016 LEANDRO NELSON DO Ot 496 10/02/2016 LEANDRO NELSON DO Ot 780. 54 10/02/2016 LEANDRO NELSON DO Ot 799. 02 10/02/2016 VIET THOMAS DO Ot J44.1 CHRONIC [...] JARAMILLO Ot 793.80 UNSPEC ABNORMAL MAMMOGRAM 10/02/2016 LESLIE SHAH LEANDRO M Ot 278. 00 OBESITY, NOS 10/02/2016 LEANDRO NELSON DO Ot 496 CHR AIRWAY OBSTRUCT NEC 10/02/2016 LESLIE SHAH LEANDRO M Ot 780. 54 HYPERSOMNIA, UNSPECIFIED 10/02/2016 LESLIE SHAH LEANDRO Gretchen Ot 799. 02 HYPOXEMIA 10/02/2016 LESLIE SHAH LEANDRO Gretchen Ot 278. 00 10/02/2016 LESLIE SHAH LEANDRO M Ot 496 10/02/2016 LESLIE SHAH LEANDRO Gretchen Ot 780. 54 10/02/2016 LESLIE SHAH LEANDRO Godinez Ot 799. 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 00 10/20/2016 LEANDRO NELSON DO Ot 496 10/20/2016 LEANDRO NELSON DO Ot 780. 54 10/20/2016 LEANDRO NELSON DO Ot 799. 02 10/20/2016 LEANDRO NELSON DO Ot G47. 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 9 CHRONIC OBSTRUCTIVE PULMONARY DISEASE, U 10/20/2016 LEANDRO NELSON DO Ot R06. 02 SHORTNESS OF BREATH 10/20/2016 LEANDRO NELSON DO Ot Z01.818 ENCOUNTER FOR OTHER PREPROCEDURAL EXAMIN 10/21/2016 LEANDRO NELSON DO Ot R91. 8 OTHER NONSPECIFIC ABNORMAL FINDING OF [place]MIAH 10/22/2016 LEANDRO NELSON DO Ot R91. 8 OTHER NONSPECIFIC ABNORMAL FINDING OF [place] 10/29/2016 LEANDRO NELSON DO Ot J44. 9 CHRONIC OBSTRUCTIVE PULMONARY DISEASE, U 10/29/2016 LEANDRO NELSON DO Ot R06. 02 SHORTNESS OF BREATH 10/29/2016 LEANDRO NELSON DO Ot J44. 9 CHRONIC OBSTRUCTIVE PULMONARY DISEASE, U 10/29/2016 LEANDRO NELSON DO Ot R06. 02 SHORTNESS OF BREATH 11/03/2016 STEVEN FALCON MD Ot K80.20 CALCULUS OF GALLBLADDER W/O CHOLECYSTITI 11/03/2016 STEVEN FALCON MD Ot Z01.81 8 ENCOUNTER FOR OTHER PREPROCEDURAL EXAMIN 11/03/2016 STEVEN FALCON MD Ot Z11.2 ENCOUNTER FOR SCREENING FOR OTHER BACTER 11/03/2016 LEANDRO NELSON DO Ot R91. 8 OTHER NONSPECIFIC ABNORMAL FINDING OF [place]MIAH 11/04/2016 STEVEN FALCON MD Ot K80.20 CALCULUS OF GALLBLADDER W/O CHOLECYSTITI 11/04/2016 STEVEN FALCON MD Ot Z01.81 8 ENCOUNTER FOR OTHER PREPROCEDURAL EXAMIN 11/04/2016 STEVEN FALCON MD Ot Z11.2 ENCOUNTER FOR SCREENING FOR OTHER BACTER 11/05/2016 STEVEN FALCON MD Ot K80.10 CALCULUS OF GALLBLADDER W CHRONIC CHOLEC 11/06/2016 STEVEN FALCON MD Ot K80.10 CALCULUS OF GALLBLADDER W CHRONIC CHOLEC 11/09/2016 STEVEN FALCON MD Ot K80.20 CALCULUS OF GALLBLADDER W/O CHOLECYSTITI 11/09/2016 STEVEN FALCON MD Ot Z01.81 8 ENCOUNTER FOR OTHER PREPROCEDURAL EXAMIN 11/09/2016 STEVEN FALCON MD Ot Z11.2 ENCOUNTER FOR SCREENING FOR OTHER BACTER 11/11/2016 STEVEN FALCON MD, Ot K80.10 CALCULUS OF GALLBLADDER W CHRONIC CHOLEC 11/12/2016 STEVEN FALCON MD, Ot K80.10 CALCULUS OF GALLBLADDER W CHRONIC CHOLEC 11/13/2016 PATRICIA JARAMILLO Ot 793.89 OTH (ABN) FINDINGS ON RADIOLOGICAL EXAMI 11/13/2016 PATRICIA JARAMILLO Ot V76.12 OTH SCREEN MAMMO-MALIGN NEOPLASM OF BRANDON 11/13/2016 PATRICIA JARAMILOL Ot 793.80 UNSPEC ABNORMAL MAMMOGRAM 11/13/2016 LEANDRO NELSON DO Ot 278. 00 OBESITY, NOS 11/13/2016 LEANDRO NELSON DO Ot 496 CHR AIRWAY OBSTRUCT NEC 11/13/2016 LEANDRO NELSON DO Ot 780. 54 HYPERSOMNIA, UNSPECIFIED 11/13/2016 LEANDRO NELSON DO Ot 799. 02 HYPOXEMIA 11/13/2016 LEANDRO NELSON DO Ot 278. 00 11/13/2016 LEANDRO NELSON DO Ot 496 11/13/2016 LEANDRO NELSON DO Ot 780. 54 11/13/2016 LEANDRO NELSON DO Ot 799. 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 9 CHRONIC OBSTRUCTIVE PULMONARY DISEASE, U 11/13/2016 LEANDRO NELSON DO Ot R06. 02 SHORTNESS OF BREATH 11/13/2016 LEANDRO NELSON DO Ot Z01.818 ENCOUNTER FOR OTHER PREPROCEDURAL EXAMIN 11/13/2016 LEANDRO NELSON DO Ot J44. 9 CHRONIC OBSTRUCTIVE PULMONARY DISEASE, U 11/13/2016 LEANDRO NELSON DO Ot R06. 02 SHORTNESS OF BREATH 11/13/2016 LEANDRO NELSON DO Ot J44. 9 CHRONIC OBSTRUCTIVE PULMONARY DISEASE, U 11/13/2016 LEANDRO NELSON DO Ot R06. 02 SHORTNESS OF BREATH 11/13/2016 PATRICIA JARAMILLO Ot M25.511 PAIN IN RIGHT SHOULDER 11/20/2016 PATRICIA JARAMILLO Ot M25.511 PAIN IN RIGHT SHOULDER 11/24/2016 LEANDRO NELSON DO Ot J44. 9 CHRONIC OBSTRUCTIVE PULMONARY DISEASE, U 11/24/2016 LEANDRO NELSON DO Ot R06. 02 SHORTNESS OF BREATH 11/24/2016 SATHISH MURPHY MD Ot R11.2 NAUSEA WITH VOMITING, UNSPECIFIED 11/30/2016 SATHISH MURPHY MD Ot R11.2 NAUSEA WITH VOMITING, UNSPECIFIED 12/09/2016 LEANDRO NELSON DO Ot J44. 9 CHRONIC OBSTRUCTIVE PULMONARY DISEASE, U 12/09/2016 LEANDRO NELSON DO Ot R06. 02 SHORTNESS OF BREATH 04/15/2017 PATRICIA JARAMILLO Ot 793.89 OTH (ABN) FINDINGS ON RADIOLOGICAL EXAMI 04/15/2017 PATRICIA JARAMILLO Ot V76.12 OTH SCREEN MAMMO-MALIGN NEOPLASM OF BRANDON 04/15/2017 PATRICIA JARAMILLO Ot 793.80 UNSPEC ABNORMAL MAMMOGRAM 04/15/2017 LEANDRO NELSON DO Ot 278. 00 OBESITY, NOS 04/15/2017 LEANDRO NELSON DO Ot 496 CHR AIRWAY OBSTRUCT NEC 04/15/2017 LEANDRO NELSON DO Ot 780. 54 HYPERSOMNIA, UNSPECIFIED 04/15/2017 LEANDRO NELSON DO Ot 799. 02 HYPOXEMIA 04/15/2017 LEANDRO NELSON DO Ot 278. 00 04/15/2017 LEANDRO NELSON DO Ot 496 04/15/2017 LEANDRO NELSON DO Ot 780. 54 04/15/2017 LEANDRO NELSON DO Ot 799. 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 9 CHRONIC OBSTRUCTIVE PULMONARY DISEASE, U 04/15/2017 LEANDRO NELSON DO Ot R06. 02 SHORTNESS OF BREATH 04/15/2017 LEANDRO NELSON DO Ot Z01.818 ENCOUNTER FOR OTHER PREPROCEDURAL EXAMIN 04/15/2017 LEANDRO NELSON DO Ot J44. 9 CHRONIC OBSTRUCTIVE PULMONARY DISEASE, U 04/15/2017 LEANDRO NELSON DO Ot R06. 02 SHORTNESS OF BREATH 04/16/2017 LEANDRO NELSON DO Ot G47. 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 9 CHRONIC OBSTRUCTIVE PULMONARY DISEASE, U 04/16/2017 LEANDRO NELSON DO Ot R06. 02 SHORTNESS OF BREATH 04/16/2017 LEANDRO NELSON DO Ot G47. 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 9 CHRONIC OBSTRUCTIVE PULMONARY DISEASE, U 04/16/2017 LEANDRO NELSON DO Ot R06. 02 SHORTNESS OF BREATH 04/16/2017 LEANDRO NELSON DO M Ot G47. 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 9 CHRONIC OBSTRUCTIVE PULMONARY DISEASE, U 04/16/2017 LEANDRO NELSON DO Ot R06. 02 SHORTNESS OF BREATH 04/22/2017 LEANDRO NELSON DO Ot G47. 33 OBSTRUCTIVE SLEEP APNEA (ADULT) (PEDIATR 04/22/2017 LEANDRO NELSON DO M Ot G47. 34 IDIO SLEEP RELATED NONOBSTRUCTIVE ALVEOL 04/22/2017 LEANDRO NELSON DO Ot J44. 9 CHRONIC OBSTRUCTIVE PULMONARY DISEASE, U 04/22/2017 LEANDRO NELSON DO M Ot R06. 02 SHORTNESS OF BREATH 05/06/2017 LEANDRO NELSON DO M Ot G47. 33 OBSTRUCTIVE SLEEP APNEA (ADULT) (PEDIATR 05/06/2017 LEANDRO NELSON DO Ot G47. 34 IDIO SLEEP RELATED NONOBSTRUCTIVE ALVEOL 05/06/2017 LEANDRO NELSON DO Ot J44. 9 CHRONIC OBSTRUCTIVE PULMONARY DISEASE, U 05/06/2017 LEANDRO NELSON DO Ot R06. 02 SHORTNESS OF BREATH 05/14/2017 LEANDRO NELSON DO Ot G47. 33 OBSTRUCTIVE SLEEP APNEA (ADULT) (PEDIATR 05/14/2017 LEANDRO NELSON DO M Ot G47. 34 IDIO SLEEP RELATED NONOBSTRUCTIVE ALVEOL 05/14/2017 LEANDRO NELSON DO Ot J44. 9 CHRONIC OBSTRUCTIVE PULMONARY DISEASE, U 05/14/2017 LEANDRO NELSON DO M Ot R06. 02 SHORTNESS OF BREATH 05/17/2017 LEANDRO NELSON DO M Ot G47. 33 OBSTRUCTIVE SLEEP APNEA (ADULT) (PEDIATR 05/17/2017 LEANDRO NELSON DO M Ot G47. 34 IDIO SLEEP RELATED NONOBSTRUCTIVE ALVEOL 05/17/2017 LEANDRO NELSON DO Ot J44. 9 CHRONIC OBSTRUCTIVE PULMONARY DISEASE, U 05/17/2017 LEANDRO NELSON DO Ot R06. 02 SHORTNESS OF BREATH 05/20/2017 LEANDRO NELSON DO Ot G47. 33 OBSTRUCTIVE SLEEP APNEA (ADULT) (PEDIATR 05/20/2017 LEANDRO NELSON DO Ot G47. 34 IDIO SLEEP RELATED NONOBSTRUCTIVE ALVEOL 05/20/2017 LEANDRO NELSON DO Ot J44. 9 CHRONIC OBSTRUCTIVE PULMONARY DISEASE, U 05/20/2017 LEANDRO NELSON DO Ot R06. 02 SHORTNESS OF BREATH 03/21/2018 KEAGAN CARTAGENA APRN Ot Z12.2 ENCNTR SCREEN FOR MALIGNANT NEOPLASM OF 03/21/2018 KEAGAN CARTAGENA HVAC DESIGN MECHANICAL ENGINEER Ot Z12.2 ENCNTR SCREEN FOR MALIGNANT NEOPLASM OF 04/12/2018 KEAGAN CARTAGENA APRN Ot Z12.2 ENCNTR SCREEN FOR MALIGNANT NEOPLASM OF 04/15/2018 PATRICIA JARAMILLO Ot 793.89 OTH (ABN) FINDINGS ON RADIOLOGICAL EXAMI 04/15/2018 PATRICIA JARAMILLO Ot V76.12 OTH SCREEN MAMMO-MALIGN NEOPLASM OF [place] 04/15/2018 PATRICIA JARAMILLO Ot 793.80 UNSPEC ABNORMAL MAMMOGRAM 04/15/2018 LEANDRO NELSON DO Ot 278. 00 OBESITY, NOS 04/15/2018 LEANDRO NELSON DO Ot 496 CHR AIRWAY OBSTRUCT NEC 04/15/2018 LEANDRO NELSON DO Ot 780. 54 HYPERSOMNIA, UNSPECIFIED 04/15/2018 LEANDRO NELSON DO Ot 799. 02 HYPOXEMIA 04/15/2018 LEANDRO NELSON DO Ot 278. 00 04/15/2018 LEANDRO NELSON DO Ot 496 04/15/2018 LEANDRO NELSON DO Ot 780. 54 04/15/2018 LEANDRO NELSON DO Ot 799. 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 33 OBSTRUCTIVE SLEEP APNEA (ADULT) (PEDIATR 04/15/2018 LEANDRO NELSON DO Ot G47. 34 IDIO SLEEP RELATED NONOBSTRUCTIVE ALVEOL 04/15/2018 LEANDRO NELSON DO Ot J44. 9 CHRONIC OBSTRUCTIVE PULMONARY DISEASE, U 04/15/2018 LEANDRO NELSON DO Ot R06. 02 SHORTNESS OF BREATH 04/15/2018 LEANDRO NELSON DO Ot Z01.818 ENCOUNTER FOR OTHER PREPROCEDURAL EXAMIN 04/15/2018 LEANDRO NELSON DO Ot J44. 9 CHRONIC OBSTRUCTIVE PULMONARY DISEASE, U 04/15/2018 LEANDRO NELSON DO Ot R06. 02 SHORTNESS OF BREATH 04/15/2018 LEANDRO NELSON DO Ot G47. 33 OBSTRUCTIVE SLEEP APNEA (ADULT) (PEDIATR 04/15/2018 LEANDRO NELSON DO Ot G47. 34 IDIO SLEEP RELATED NONOBSTRUCTIVE ALVEOL 04/15/2018 LEANDRO NELSON DO Ot J44. 9 CHRONIC OBSTRUCTIVE PULMONARY DISEASE, U 04/15/2018 LEANDRO NELSON DO Ot R06. 02 SHORTNESS OF BREATH 04/15/2018 KEAGAN CARTAGENA HVAC DESIGN MECHANICAL ENGINEER Ot Z12.2 ENCNTR SCREEN FOR MALIGNANT NEOPLASM OF 04/15/2018 KEAGAN CARTAGENA HVAC DESIGN MECHANICAL ENGINEER Ot Z12.2 ENCNTR SCREEN FOR MALIGNANT NEOPLASM OF 04/21/2018 KEAGAN CARTAGENA HVAC DESIGN MECHANICAL ENGINEER Ot Z12.2 ENCNTR SCREEN FOR MALIGNANT NEOPLASM OF 04/21/2018 KEAGAN CARTAGENA HVAC DESIGN MECHANICAL ENGINEER Ot Z87.891 PERSONAL HISTORY OF NICOTINE DEPENDENCE 04/21/2018 KEAGAN CARTAGENA HVAC DESIGN MECHANICAL ENGINEER Ot Z12.2 ENCNTR SCREEN FOR MALIGNANT NEOPLASM OF 04/21/2018 KEAGAN CARTAGENA HVAC DESIGN MECHANICAL ENGINEER Ot Z87.891 PERSONAL HISTORY OF NICOTINE DEPENDENCE 05/11/2018 KEAGAN CARTAGENA HVAC DESIGN MECHANICAL ENGINEER Ot Z12.2 ENCNTR SCREEN FOR MALIGNANT NEOPLASM OF 05/11/2018 KEAGAN CARTAGENA HVAC DESIGN MECHANICAL ENGINEER Ot Z87.891 PERSONAL HISTORY OF NICOTINE DEPENDENCE 04/04/2019 LEANDRO NELSON DO Ot 278. 00 OBESITY, NOS 04/04/2019 LEANDRO NELSON DO Ot 496 CHR AIRWAY OBSTRUCT NEC 04/04/2019 LEANDRO NELSON DO Ot 780. 54 HYPERSOMNIA, UNSPECIFIED 04/04/2019 LEANDRO NELSON DO Ot 799. 02 HYPOXEMIA 04/04/2019 LEANDRO NELSON DO Ot 278. 00 04/04/2019 LEANDRO NELSON DO Ot 496 04/04/2019 LEANDRO NELSON DO Ot 780. 54 04/04/2019 LEANDRO NELSON DO Ot 799. 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 33 OBSTRUCTIVE SLEEP APNEA (ADULT) (PEDIATR 04/04/2019 LEANDRO NELSON DO Ot G47. 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 9 CHRONIC OBSTRUCTIVE PULMONARY DISEASE, U 04/04/2019 LEANDRO NELSON DO Ot R06. 02 SHORTNESS OF BREATH 04/04/2019 LEANDRO NELSON DO Ot Z01.818 ENCOUNTER FOR OTHER PREPROCEDURAL EXAMIN 04/04/2019 LEANDRO NELSON DO Ot J44. 9 CHRONIC OBSTRUCTIVE PULMONARY DISEASE, U 04/04/2019 LEANDRO NELSON DO Ot R06. 02 SHORTNESS OF BREATH 04/04/2019 LEANDRO NELSON DO Ot G47. 33 OBSTRUCTIVE SLEEP APNEA (ADULT) (PEDIATR 04/04/2019 LEANDRO NELSON DO Ot G47. 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 9 CHRONIC OBSTRUCTIVE PULMONARY DISEASE, U 04/04/2019 LEANDRO NELSON DO Ot R06. 02 SHORTNESS OF BREATH 04/04/2019 KEAGAN CARTAGENA APRN Ot Z12.2 ENCNTR SCREEN FOR MALIGNANT NEOPLASM OF 04/04/2019 KEAGAN CARTAGENA APRN Ot Z87.891 PERSONAL HISTORY OF NICOTINE DEPENDENCE 04/11/2019 LEANDRO NELSON DO Ot 278. 00 OBESITY, NOS 04/11/2019 LEANDRO NELSON DO Ot 496 CHR AIRWAY OBSTRUCT NEC 04/11/2019 LEANDRO NELSON DO Ot 780. 54 HYPERSOMNIA, UNSPECIFIED 04/11/2019 LEANDRO NELSON DO Ot 799. 02 HYPOXEMIA 04/11/2019 LEANDRO NELSON DO Ot 278. 00 04/11/2019 LEANDRO NELSON DO Ot 496 04/11/2019 LEANDRO NELSON DO Ot 780. 54 04/11/2019 LEANDRO NELSON DO Ot 799. 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 33 OBSTRUCTIVE SLEEP APNEA (ADULT) (PEDIATR 04/11/2019 LEANDRO NELSON DO Ot G47. 34 IDIO SLEEP RELATED NONOBSTRUCTIVE ALVEOL 04/11/2019 LEANDRO NELSON DO Ot J44. 9 CHRONIC OBSTRUCTIVE PULMONARY DISEASE, U 04/11/2019 LEANDRO NELSON DO Ot R06. 02 SHORTNESS OF BREATH 04/11/2019 LEANDRO NELSON DO Ot Z01.818 ENCOUNTER FOR OTHER PREPROCEDURAL EXAMIN 04/11/2019 LEANDRO NELSON DO Ot J44. 9 CHRONIC OBSTRUCTIVE PULMONARY DISEASE, U 04/11/2019 LEANDRO NELSON DO Ot R06. 02 SHORTNESS OF BREATH 04/11/2019 LEANDRO NELSON DO Ot G47. 33 OBSTRUCTIVE SLEEP APNEA (ADULT) (PEDIATR 04/11/2019 LEANDRO NELSON DO Ot G47. 34 IDIO SLEEP RELATED NONOBSTRUCTIVE ALVEOL 04/11/2019 LEANDRO NELSON DO Ot J44. 9 CHRONIC OBSTRUCTIVE PULMONARY DISEASE, U 04/11/2019 LEANDRO NELSON DO Ot R06. 02 SHORTNESS OF BREATH 04/11/2019 KEAGAN CARTAGENA HVAC DESIGN MECHANICAL ENGINEER Ot Z12.2 ENCNTR SCREEN FOR MALIGNANT NEOPLASM OF 04/11/2019 KEAGAN CARTAGENA HVAC DESIGN MECHANICAL ENGINEER Ot Z87.891 PERSONAL HISTORY OF NICOTINE DEPENDENCE 04/12/2019 CLINTPATRICIA REYNOLDS NURSE LEADER Ot M23.203 DERANG OF UNSP MEDIAL MENISCUS DUE TO OL 04/12/2019 CLINTPATRICIA REYNOLDS NURSE LEADER Ot M94.8X8 OTHER SPECIFIED DISORDERS OF [place], 04/14/2019 KEAGAN CARTAGENA HVAC DESIGN MECHANICAL ENGINEER Ot Z87.891 PERSONAL HISTORY OF NICOTINE DEPENDENCE 04/17/2019 PATRICIA JARAMILLO NURSE LEADER Ot M23.203 DERANG OF UNSP MEDIAL MENISCUS DUE TO OL 04/17/2019 CLINTPATRICIA REYNOLDS NURSE LEADER Ot M94.8X8 OTHER SPECIFIED DISORDERS OF [place], 04/21/2019 KEAGAN CARTAGENA HVAC DESIGN MECHANICAL ENGINEER Ot Z87.891 PERSONAL HISTORY OF NICOTINE DEPENDENCE 04/25/2019 KEAGAN CARTAGENA HVAC DESIGN MECHANICAL ENGINEER Ot Z87.891 PERSONAL HISTORY OF NICOTINE DEPENDENCE 04/30/2019 KEAGAN CARTAGENA HVAC DESIGN MECHANICAL ENGINEER Ot I25.10 ATHSCL HEART DISEASE OF [place] CORONARY 04/30/2019 KEAGAN CARTAGENA HVAC DESIGN MECHANICAL ENGINEER Ot J44.9 CHRONIC OBSTRUCTIVE PULMONARY DISEASE, U 04/30/2019 KEAGAN CARTAGENA HVAC DESIGN MECHANICAL ENGINEER Ot K44.9 DIAPHRAGMATIC HERNIA WITHOUT OBSTRUCTION 04/30/2019 KEAGAN CARTAGENA HVAC DESIGN MECHANICAL ENGINEER Ot Z12.2 ENCNTR SCREEN FOR MALIGNANT NEOPLASM OF 04/30/2019 KEAGAN CARTAGENA HVAC DESIGN MECHANICAL ENGINEER Ot Z87.891 PERSONAL HISTORY OF NICOTINE DEPENDENCE 05/02/2019 KEAGAN CARTAGENA HVAC DESIGN MECHANICAL ENGINEER Ot I25.10 ATHSCL HEART DISEASE OF [place] CORONARY 05/02/2019 KEAGAN CARTAGENA HVAC DESIGN MECHANICAL ENGINEER Ot J44.9 CHRONIC OBSTRUCTIVE PULMONARY DISEASE, U 05/02/2019 KEAGAN CARTAGENA HVAC DESIGN MECHANICAL ENGINEER Ot K44.9 DIAPHRAGMATIC HERNIA WITHOUT OBSTRUCTION 05/02/2019 KEAGAN CARTAGENA APRN Ot Z12.2 ENCNTR SCREEN FOR MALIGNANT NEOPLASM OF 05/02/2019 KEAGAN CARTAGENA APRN Ot Z87.891 PERSONAL HISTORY OF NICOTINE DEPENDENCE 05/04/2019 CLINT PATRICIA COULTER Ot M23.203 DERANG OF UNSP MEDIAL MENISCUS DUE TO OL 05/04/2019 [place] PATRICIA NAYLORP Ot M94.8X8 OTHER SPECIFIED DISORDERS OF [place], 05/05/2019 PATRICIA JARAMILLO NURSE LEADER Ot M23.203 DERANG OF UNSP MEDIAL MENISCUS DUE TO OL 05/05/2019 CLINT PATRICIA NAYLORP Ot M94.8X8 OTHER SPECIFIED DISORDERS OF [place], 05/22/2019 KEAGAN CARTAGENA APRN Ot I25.10 ATHSCL HEART DISEASE OF [place] CORONARY 05/22/2019 KEAGAN CARTAGENA APRN Ot J44.9 CHRONIC OBSTRUCTIVE PULMONARY DISEASE, U 05/22/2019 KEAGAN CARTAGENA APRN Ot K44.9 DIAPHRAGMATIC HERNIA WITHOUT OBSTRUCTION 05/22/2019 KEAGAN CARTAGENA APRN Ot Z12.2 ENCNTR SCREEN FOR MALIGNANT NEOPLASM OF 05/22/2019 KEAGAN CARTAGENA APRN Ot Z87.891 PERSONAL HISTORY OF NICOTINE DEPENDENCE 05/30/2019 LEANDRO NELSON DO Ot 278. 00 OBESITY, NOS 05/30/2019 LEANDRO NELSON DO Ot 496 CHR AIRWAY OBSTRUCT NEC 05/30/2019 LEANDRO NELSON DO Ot 780. 54 HYPERSOMNIA, UNSPECIFIED 05/30/2019 LEANDRO NELSON DO Ot 799. 02 HYPOXEMIA 05/30/2019 LEANDRO NELSON DO Ot 278. 00 05/30/2019 LEANDRO NELSON DO Ot 496 05/30/2019 LEANDRO NELSON DO Ot 780. 54 05/30/2019 LEANDRO NELSON DO Ot 799. 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 33 OBSTRUCTIVE SLEEP APNEA (ADULT) (PEDIATR 05/30/2019 LEANDRO NELSON DO Ot G47. 34 IDIO SLEEP RELATED NONOBSTRUCTIVE ALVEOL 05/30/2019 LEANDRO NELSON DO Ot J44. 9 CHRONIC OBSTRUCTIVE PULMONARY DISEASE, U 05/30/2019 LEANDRO NELSON DO Ot R06. 02 SHORTNESS OF BREATH 05/30/2019 LEANDRO NELSON DO Ot Z01.818 ENCOUNTER FOR OTHER PREPROCEDURAL EXAMIN 05/30/2019 LEANDRO NELSON DO Ot J44. 9 CHRONIC OBSTRUCTIVE PULMONARY DISEASE, U 05/30/2019 LEANDRO NELSON DO Ot R06. 02 SHORTNESS OF BREATH 05/30/2019 LEANDRO NELSON DO Ot G47. 33 OBSTRUCTIVE SLEEP APNEA (ADULT) (PEDIATR 05/30/2019 LEANDRO NELSON DO Ot G47. 34 IDIO SLEEP RELATED NONOBSTRUCTIVE ALVEOL 05/30/2019 LEANDRO NELSON DO Ot J44. 9 CHRONIC OBSTRUCTIVE PULMONARY DISEASE, U 05/30/2019 LEANDRO NELSON DO Ot R06. 02 SHORTNESS OF BREATH 05/30/2019 KEAGAN CARTAGENA APRN Ot Z12.2 ENCNTR SCREEN FOR MALIGNANT NEOPLASM OF 05/30/2019 KEAGAN CARTAGENA APRN Ot Z87.891 PERSONAL HISTORY OF NICOTINE DEPENDENCE 05/30/2019 KEAGAN CARTAGENA APRN Ot I25.10 ATHSCL HEART DISEASE OF [place] CORONARY 05/30/2019 KEAGAN CARTAGENA APRN Ot J44.9 CHRONIC OBSTRUCTIVE PULMONARY DISEASE, U 05/30/2019 KEAGAN CARTAGENA APRN Ot K44.9 DIAPHRAGMATIC HERNIA WITHOUT OBSTRUCTION 05/30/2019 KEAGAN CARTAGENA APRN Ot Z12.2 ENCNTR SCREEN FOR MALIGNANT NEOPLASM OF 05/30/2019 KEAGAN CARTAGENA APRN Ot Z87.891 PERSONAL HISTORY OF NICOTINE DEPENDENCE 05/30/2019 PATRICIA JARAMILLO Ot M23.203 DERANG OF UNSP MEDIAL MENISCUS DUE TO OL 05/30/2019 PATRICIA JARAMILLOP Ot M94.8X8 OTHER SPECIFIED DISORDERS OF [place], 05/30/2019 LEANDRO NELSON DO Ot 278. 00 05/30/2019 LEANDRO NELSON DO Ot 496 05/30/2019 LEANDRO NELSON DO Ot 780. 54 05/30/2019 LEANDRO NELSON DO Ot 799. 02 05/30/2019 LEANDRO NELSON DO Ot 278. 00 05/30/2019 LEANDRO NELSON DO Ot 496 05/30/2019 LEANDRO NELSON DO Ot 780. 54 05/30/2019 LEANDRO NELSON DO Ot 799. 02 05/30/2019 MARLIEE EDWARD MD Ot Z01.818 ENCOUNTER FOR OTHER PREPROCEDURAL EXAMIN 05/31/2019 MARILEE EDWARD MD Ot Z01.818 ENCOUNTER FOR OTHER PREPROCEDURAL EXAMIN 06/05/2019 MARILEE EDWARD MD Ot Z01.818 ENCOUNTER FOR OTHER PREPROCEDURAL EXAMIN 06/07/2019 MARILEE EDWARD MD Ot D64.9 ANEMIA, UNSPECIFIED 06/07/2019 MARILEE EDWARD MD Ot E66.01 MORBID (SEVERE) OBESITY DUE TO EXCESS CA 06/07/2019 MARILEE EDWARD MD Ot G47.33 OBSTRUCTIVE SLEEP APNEA (ADULT) (PEDIATR 06/07/2019 MARILEE EDWARD MD Ot G89.29 OTHER CHRONIC PAIN 06/07/2019 MARILEE EDWARD MD Ot I1 0 ESSENTIAL (PRIMARY) HYPERTENSION 06/07/2019 MARILEE EDWARD MD Ot J43.9 EMPHYSEMA, UNSPECIFIED 06/07/2019 MARILEE EDWARD MD Ot K21.9 GASTRO-ESOPHAGEAL REFLUX DISEASE WITHOUT 06/07/2019 MARILEE EDWARD MD Ot M19.90 UNSPECIFIED OSTEOARTHRITIS, UNSPECIFIED 06/07/2019 MARILEE EDWARD MD Ot M22.41 CHONDROMALACIA PATELLAE, RIGHT KNEE 06/07/2019 MARILEE EDWARD MD Ot M54.9 DORSALGIA, UNSPECIFIED 06/07/2019 MARILEE EDWARD MD Ot S83.241A OTH TEAR OF MEDIAL MENISCUS, CURRENT INJ 06/07/2019 MARILEE EDWARD MD Ot Z68.41 BODY MASS INDEX (BMI) 40.0-44.9, ADULT 06/07/2019 MARILEE EDWARD MD, Ot Z79.899 OTHER SHELTER (CURRENT) DRUG THERAPY 06/07/2019 MARILEE EDWARD MD, Ot Z82.5 FAMILY HISTORY OF ASTHMA AND OTH CHRONIC 06/07/2019 MARILEE EDWARD MD, Ot Z87.891 PERSONAL HISTORY OF NICOTINE DEPENDENCE 06/07/2019 MARILEE EDWARD MD, Ot Z88.0 ALLERGY STATUS TO PENICILLIN 06/07/2019 MARILEE EDWARD MD, Ot Z88.8 ALLERGY STATUS TO OTH DRUG/MEDS/BIOL SUB 06/07/2019 MARILEE EDWARD MD, Ot Z90.49 ACQUIRED ABSENCE OF OTHER SPECIFIED PART 06/07/2019 MARILEE EDWARD MD, Ot Z99.81 DEPENDENCE ON SUPPLEMENTAL OXYGEN 06/18/2019 MARILEE EDWARD MD, Ot D64.9 ANEMIA, UNSPECIFIED 06/18/2019 MARILEE EDWARD MD, Ot E66.01 MORBID (SEVERE) OBESITY DUE TO EXCESS CA 06/18/2019 MARILEE EDWARD MD, Ot G47.33 OBSTRUCTIVE SLEEP APNEA (ADULT) (PEDIATR 06/18/2019 MARILEE EDWARD MD, Ot G89.29 OTHER CHRONIC PAIN 06/18/2019 MARILEE EDWARD MD, Ot I1 0 ESSENTIAL (PRIMARY) HYPERTENSION 06/18/2019 MARILEE EDWARD MD, Ot J43.9 EMPHYSEMA, UNSPECIFIED 06/18/2019 MARILEE EDWARD MD, Ot K21.9 GASTRO-ESOPHAGEAL REFLUX DISEASE WITHOUT 06/18/2019 MARILEE EDWARD MD, Ot M19.90 UNSPECIFIED OSTEOARTHRITIS, UNSPECIFIED 06/18/2019 MARILEE EDWARD MD, Ot M22.41 CHONDROMALACIA PATELLAE, RIGHT KNEE 06/18/2019 MARILEE EDWARD MD, Ot M54.9 DORSALGIA, UNSPECIFIED 06/18/2019 MARILEE EDWARD MD, Ot S83.241A OT TEAR OF MEDIAL MENISCUS, CURRENT INJ 06/18/2019 MARILEE EDWARD MD, Ot Z68.41 BODY MASS INDEX (BMI) 40.0-44.9, ADULT 06/18/2019 MARILEE EDWARD MD, Ot Z79.899 OTHER SHELTER (CURRENT) DRUG THERAPY 06/18/2019 MARILEE EDWARD MD, Ot Z82.5 FAMILY HISTORY OF ASTHMA AND OTH CHRONIC 06/18/2019 MARILEE EDWARD MD Ot Z87.891 PERSONAL HISTORY OF NICOTINE DEPENDENCE 06/18/2019 MARILEE EDWARD MD Ot Z88.0 ALLERGY STATUS TO PENICILLIN 06/18/2019 MARILEE EDWARD MD Ot Z88.8 ALLERGY STATUS TO OTH DRUG/MEDS/BIOL SUB 06/18/2019 MARILEE EDWARD MD Ot Z90.49 ACQUIRED ABSENCE OF OTHER SPECIFIED PART 06/18/2019 MARILEE EDWARD MD Ot Z99.81 DEPENDENCE ON SUPPLEMENTAL OXYGEN 03/27/2020 KEAGAN CARTAGENA APRN Ot Z87.891 PERSONAL HISTORY OF NICOTINE DEPENDENCE 04/03/2020 LEANDRO NELSON DO Ot 278. 00 OBESITY, NOS 04/03/2020 LEANDRO NELSON DO Ot 496 CHR AIRWAY OBSTRUCT NEC 04/03/2020 LEANDRO NELSON DO Ot 780. 54 HYPERSOMNIA, UNSPECIFIED 04/03/2020 LEANDRO NELSON DO Ot 799. 02 HYPOXEMIA 04/03/2020 LEANDRO NELSON DO Ot 278. 00 04/03/2020 LEANDRO NELSON DO Ot 496 04/03/2020 LEANDRO NELSON DO Ot 780. 54 04/03/2020 LEANDRO NELSON DO Ot 799. 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 33 OBSTRUCTIVE SLEEP APNEA (ADULT) (PEDIATR 04/03/2020 LEANDRO ENLSON DO Ot G47. 34 IDIO SLEEP RELATED NONOBSTRUCTIVE ALVEOL 04/03/2020 LEANDRO NELSON DO Ot J44. 9 CHRONIC OBSTRUCTIVE PULMONARY DISEASE, U 04/03/2020 LEANDRO NELSON DO Ot R06. 02 SHORTNESS OF BREATH 04/03/2020 LEANDRO NELSON DO, Ot Z01.818 ENCOUNTER FOR OTHER PREPROCEDURAL EXAMIN 04/03/2020 LESLIE LEANDRO SHAH Ot J44. 9 CHRONIC OBSTRUCTIVE PULMONARY DISEASE, U 04/03/2020 LESLIE SHAHLEANDRO Ot R06. 02 SHORTNESS OF BREATH 04/03/2020 LESLIE SHAHLEANDRO Ot G47. 33 OBSTRUCTIVE SLEEP APNEA (ADULT) (PEDIATR 04/03/2020 LESLIE SHAHLEANDRO Ot G47. 34 IDIO SLEEP RELATED NONOBSTRUCTIVE ALVEOL 04/03/2020 LESLIE SHAHLEANDRO Ot J44. 9 CHRONIC OBSTRUCTIVE PULMONARY DISEASE, U 04/03/2020 LESLIE SHAHLEANDRO Ot R06. 02 SHORTNESS OF BREATH 04/03/2020 KEAGAN CARTAGENA APRN Ot Z12.2 ENCNTR SCREEN FOR MALIGNANT NEOPLASM OF 04/03/2020 KEAGAN CARTAGENA APRN Ot Z87.891 PERSONAL HISTORY OF NICOTINE DEPENDENCE 04/03/2020 KEAGAN CARTAGENA APRN Ot I25.10 ATHSCL HEART DISEASE OF [place] CORONARY 04/03/2020 KEAGAN CARTAGENA APRN Ot J44.9 CHRONIC OBSTRUCTIVE PULMONARY DISEASE, U 04/03/2020 KEAGAN CARTAGENA APRN Ot K44.9 DIAPHRAGMATIC HERNIA WITHOUT OBSTRUCTION 04/03/2020 KEAGAN CARTAGENA APRN Ot Z12.2 ENCNTR SCREEN FOR MALIGNANT NEOPLASM OF 04/03/2020 KEAGAN CARTAGENA APRN Ot Z87.891 PERSONAL HISTORY OF NICOTINE DEPENDENCE 04/03/2020 PATRICIA JARAMILLO Ot M23.203 DERANG OF UNSP MEDIAL MENISCUS DUE TO OL 04/03/2020 PATRICIA JARAMILLO Ot M94.8X8 OTHER SPECIFIED DISORDERS OF [place], 04/03/2020 KEAGAN CARTAGENA APRN Ot Z87.891 PERSONAL HISTORY OF NICOTINE DEPENDENCE 04/05/2020 MARILIN SHAH ALEXA B Ot K43.2 INCISIONAL HERNIA WITHOUT OBSTRUCTION OR 04/05/2020 MARILIN SHAH ALEXA B Ot Z01.8 12 ENCOUNTER FOR PREPROCEDURAL LABORATORY E 04/05/2020 MARILIN SHAH ALEXA B Ot Z01.8 18 ENCOUNTER FOR OTHER PREPROCEDURAL EXAMIN 04/05/2020 MARILIN SHAH LAEXA B Ot Z11.5 9 ENCOUNTER FOR SCREENING FOR OTHER VIRAL 04/10/2020 LEANDRO NELSON DO Ot 278. 00 OBESITY, NOS 04/10/2020 LEANDRO NELSON DO Ot 496 CHR AIRWAY OBSTRUCT NEC 04/10/2020 LEANDRO NELSON DO Ot 780. 54 HYPERSOMNIA, UNSPECIFIED 04/10/2020 LEANDRO NELSON DO Ot 799. 02 HYPOXEMIA 04/10/2020 LEANDRO NELSON DO Ot 278. 00 04/10/2020 LEANDRO NELSON DO Ot 496 04/10/2020 LEANDRO NELSON DO Ot 780. 54 04/10/2020 LEANDRO NELSON DO Ot 799. 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 33 OBSTRUCTIVE SLEEP APNEA (ADULT) (PEDIATR 04/10/2020 LEANDRO NELSON DO Ot G47. 34 IDIO SLEEP RELATED NONOBSTRUCTIVE ALVEOL 04/10/2020 LEANDRO NELSON DO Ot J44. 9 CHRONIC OBSTRUCTIVE PULMONARY DISEASE, U 04/10/2020 LEANDRO NELSON DO Ot R06. 02 SHORTNESS OF BREATH 04/10/2020 LEANDRO NELSON DO Ot Z01.818 ENCOUNTER FOR OTHER PREPROCEDURAL EXAMIN 04/10/2020 LEANDRO NELSON DO Ot J44. 9 CHRONIC OBSTRUCTIVE PULMONARY DISEASE, U 04/10/2020 LEANDRO NELSON DO Ot R06. 02 SHORTNESS OF BREATH 04/10/2020 LEANDRO NELSON DO Ot G47. 33 OBSTRUCTIVE SLEEP APNEA (ADULT) (PEDIATR 04/10/2020 LEANDRO NELSON DO Ot G47. 34 IDIO SLEEP RELATED NONOBSTRUCTIVE ALVEOL 04/10/2020 LEANDRO NELSON DO Ot J44. 9 CHRONIC OBSTRUCTIVE PULMONARY DISEASE, U 04/10/2020 LEANDRO NELSON DO Ot R06. 02 SHORTNESS OF BREATH 04/10/2020 KEAGAN CARTAGENA HVAC DESIGN MECHANICAL ENGINEER Ot Z12.2 ENCNTR SCREEN FOR MALIGNANT NEOPLASM OF 04/10/2020 KEAGAN CARTAGENA APRN Ot Z87.891 PERSONAL HISTORY OF NICOTINE DEPENDENCE 04/10/2020 KEAGAN CARTAGENA HVAC DESIGN MECHANICAL ENGINEER Ot I25.10 ATHSCL HEART DISEASE OF [place] CORONARY 04/10/2020 KEAGAN CARTAGENA HVAC DESIGN MECHANICAL ENGINEER Ot J44.9 CHRONIC OBSTRUCTIVE PULMONARY DISEASE, U 04/10/2020 KEAGAN CARTAGENA HVAC DESIGN MECHANICAL ENGINEER Ot K44.9 DIAPHRAGMATIC HERNIA WITHOUT OBSTRUCTION 04/10/2020 KEAGAN CARTAGENA HVAC DESIGN MECHANICAL ENGINEER Ot Z12.2 ENCNTR SCREEN FOR MALIGNANT NEOPLASM OF 04/10/2020 KEAGAN CARTAGENA APRN Ot Z87.891 PERSONAL HISTORY OF NICOTINE DEPENDENCE 04/10/2020 PATRICIA JARAMILLO Ot M23.203 DERANG OF UNSP MEDIAL MENISCUS DUE TO OL 04/10/2020 PATRICIA JARAMILLOP Ot M94.8X8 OTHER SPECIFIED DISORDERS OF [place], 04/10/2020 KEAGAN CARTAGENA APRN Ot Z87.891 PERSONAL HISTORY OF NICOTINE DEPENDENCE Procedures Code Description [place] [address] ROUT INE VENIPUNCTURE 01/05/2013 32573 CBC 01/05/2013 98221 CMP 01/05/2013 63327 LIPI D PANEL 01/05/2013 [id number] GF R CALC (RESULT ONLY) 01/05/2013 19996 MAMM OGRAM, SCREENING 04/10/2013 14019 MAMM OGRAM DX, LEFT 04/11/2013 G0008 FLU ADMINISTRATION (MEDICARE ONLY) 08/16/2013 92178 INFL UENZA A & B (IN-HOUSE) 11/30/2013 J2930 SOLU MEDROL INJ 11/30/2013 61446 THER APUTIC INJ SQ/IM 11/30/2013 93390 OXIMETRY 11/30/2013 60035 ROUT INE VENIPUNCTURE 03/14/2014 47858 CBC 03/14/2014 [id number] GF R CALC (RESULT ONLY) 03/14/2014 68750 CMP 03/14/2014 40844 LIPI D PANEL 03/14/2014 68924 TSH 03/14/2014 58349 OXIMETRY 10/16/2014 95944 OXIMETRY 12/04/2014 Results Test Result Range Complete blood count (CBC) with automate d white blood cell (WBC) differential - 10/02/16 00:50 Blood leukocytes automated count (number/volume) 7.9 10*3/uL 4.3-11.0 Blood erythrocytes automated count (number/volume) 4.72 10*6/uL 4.35-5.85 Venous blood hemoglobin measurement (mass/volume) 13.1 g/dL 11.5-16.0 Blood hematocrit (volume fraction) 41 % 35-52 Automated erythrocyte mean corpuscular volume 86 [ foz_us] 80-99 Automated erythrocyte mean corpuscular h emoglobin (mass per erythrocyte) 28 pg 25-34 Automated erythrocyte mean corpuscular h emoglobin concentration measurement (mass/volume) 32 g/dL 32-36 Automated erythrocyte distribution width ratio 14. 8 % 10.0- 14.5 Automated blood platelet count [...] 10*3 1.0-4.0 Blood monocytes automated count (number/volume) 0. 6 10*3 0.0-1.0 Automated eosinophil count 0.3 10*3/uL 0 .0-0.3 Automated blood basophil count (count/volume) 0.1 10*3/uL 0.0-0.1 Comprehensive metabolic panel - 10/02/16 00:50 Serum or plasma sodium measurement (moles/volume) 142 mmol/L 135-145 Serum or plasma potassium measurement (moles/volume) 3.8 mmol/L 3.6-5.0 Serum or plasma chloride measurement (moles/volume) 110 mmol/L 98-107 Carbon dioxide 20 mmol/L 21-32 Serum or plasma anion gap determination (moles/volume) 12 mmol/L 5-14 Serum or plasma urea nitrogen measurement (mass/volume ) 13 mg/dL 7-18 Serum or plasma creatinine measurement (mass/volume) 0.93 mg/dL 0.60-1.30 Serum or plasma urea nitrogen/creatinine mass ratio 14 NRG Serum or plasma creatinine measurement w ith calculation of estimated glomerular filtration rate 60 NRG Serum or plasma glucose measurement (mass/volume) 124 mg/dL 70-105 Serum or plasma calcium measurement (mass/volume) 8.9 mg/dL 8.5-10.1 Serum or plasma total bilirubin measurement (mass/volu me) 0.4 mg/dL 0.1-1.0 Serum or plasma alkaline phosphatase serina surement (enzymatic activity/volume) 116 U/L 40-136 Serum or plasma aspartate aminotransfera se measurement (enzymatic activity/volume) 11 U/L 5-34 Serum or plasma alanine aminotransferase measurement (enzymatic activity/volume) 8 U/L 0-55 Serum or plasma protein measurement (mass/volume) 6.3 g/dL 6.4-8.2 Serum or plasma albumin measurement (mass/volume) 3.8 g/dL 3.2-4.5 Magnesium - 10/02/16 00:50 Magnesium 2.2 mg/dL 1.8-2.4 Serum or plasma troponin i.cardiac measu rement (mass/volume) - 10/02/16 00:50 Serum or plasma troponin i.cardiac measurement (mass/v olume) < ng/mL <0.30 Fibrin D-dimer FEU measurement in platel et poor plasma (mass/volume) - 10/02/16 00:50 Fibrin D-dimer FEU measurement in platelet poor plasma (mass/volume) 0.52 ug/mL 0.00-0.49 Serum or plasma lithium measurement (mol es/volume) - 10/02/16 00:50 BNP level 69.8 pg/mL <100.0 Sputum Gram stain - 10/21/16 07:00 GRAM STAIN SPUTUM GRAM STAIN. NRG Bacteria identification in bronchial spe cimen by aerobe culture - 10/21/16 07:00 Bacteria identification in bronchial specimen by aerob e culture NG NRG Mycobacterium species detection by organ ism specific culture - 10/21/16 07:00 DATE/TIME MICROSCOPIC 10-23-2016 NR G MICROSCOPIC NO ACID-FAST BACILLI FOUND NRG AFB CULTURE NO MYCOBACTERIA RECOVERED AFTER 6 WEEK S NRG DATE FINAL AFB CULTURE 12/16/16 11:35 NRG Fungus culture - 10/21/16 07:00 Fungus culture NG NRG Methicillin resistant Staphylococcus aur eus (MRSA) screening culture - 11/03/16 11:33 Methicillin resistant Staphylococcus aureus (MRSA) scr eening culture NEG NRG Complete blood count (CBC) with automate d white blood cell (WBC) differential - 11/24/16 07:52 Blood leukocytes automated count (number/volume) 12.7 10*3/uL 4.3-11.0 Blood erythrocytes automated count (number/volume) 5.37 10*6/uL 4.35-5.85 Venous blood hemoglobin measurement (mass/volume) 14.3 g/dL 11.5-16.0 Blood hematocrit (volume fraction) 45 % 35-52 Automated erythrocyte mean corpuscular volume 83 [ foz_us] 80-99 Automated erythrocyte mean corpuscular h emoglobin (mass per erythrocyte) 27 pg 25-34 Automated erythrocyte mean corpuscular h emoglobin concentration measurement (mass/volume) 32 g/dL 32-36 Automated erythrocyte distribution width ratio 14. 9 % 10.0- 14.5 Automated blood platelet count [...] 10*3 1.0-4.0 Blood monocytes automated count (number/volume) 0. 8 10*3 0.0-1.0 Automated eosinophil count 0.1 10*3/uL 0 .0-0.3 Automated blood basophil count (count/volume) 0.1 10*3/uL 0.0-0.1 Comprehensive metabolic panel - 11/24/16 07:52 Serum or plasma sodium measurement (moles/volume) 141 mmol/L 135-145 Serum or plasma potassium measurement (moles/volume) 4.4 mmol/L 3.6-5.0 Serum or plasma chloride measurement (moles/volume) 102 mmol/L 98-107 Carbon dioxide 28 mmol/L 21-32 Serum or plasma anion gap determination (moles/volume) 11 mmol/L 5-14 Serum or plasma urea nitrogen measurement (mass/volume ) 18 mg/dL 7-18 Serum or plasma creatinine measurement (mass/volume) 1.11 mg/dL 0.60-1.30 Serum or plasma urea nitrogen/creatinine mass ratio 16 NRG Serum or plasma creatinine measurement w ith calculation of estimated glomerular filtration rate 49 NRG Serum or plasma glucose measurement (mass/volume) 144 mg/dL 70-105 Serum or plasma calcium measurement (mass/volume) 10.0 mg/dL 8.5-10.1 Serum or plasma total bilirubin measurement (mass/volu me) 0.5 mg/dL 0.1-1.0 Serum or plasma alkaline phosphatase serina surement (enzymatic activity/volume) 156 U/L 40-136 Serum or plasma aspartate aminotransfera se measurement (enzymatic activity/volume) 19 U/L 5-34 Serum or plasma alanine aminotransferase measurement (enzymatic activity/volume) 15 U/L 0-55 Serum or plasma protein measurement (mass/volume) 7.6 g/dL 6.4-8.2 Serum or plasma albumin measurement (mass/volume) 4.2 g/dL 3.2-4.5 Magnesium - 11/24/16 07:52 Magnesium 2.3 mg/dL 1.8-2.4 Complete urinalysis with reflex to cultu re - 11/24/16 07:59 Urine color determination YELLOW NRG Urine clarity determination CLEAR NR G Urine pH measurement by test strip 6 5-9 Specific gravity of urine by test strip 1.020 1.016-1.022 Urine protein assay by test strip, semi-quantitative 2+ NEGATIVE Urine glucose detection by automated test strip NE GATIVE NEGATIVE Erythrocytes detection in urine sediment by light micr oscopy NEGATIVE NEGATIVE Urine ketones detection by automated test strip NE GATIVE NEGATIVE Urine nitrite detection by test strip NEGATIVE NEGATIVE Urine total bilirubin detection by test strip 1+ NEGATIVE Urine urobilinogen measurement by automated test strip (mass/volume) 4 mg/dL NORMAL Urine leukocyte esterase detection by dipstick 1+ NEGATIVE Automated urine sediment erythrocyte cou nt by microscopy (number/high power field) NONE NRG Automated urine sediment leukocyte count by microscopy (number/high power field) [HPF] NRG Bacteria detection in urine sediment by light microsco py FEW NRG Squamous epithelial cells detection in u rine sediment by light microscopy 2-5 NRG Crystals detection in urine sediment by light microsco py NONE NRG Casts detection in urine sediment [...] <5.0 NON HDL CHOLESTEROL 119 mg/dL (calc) <13 0 CMP - 01/17/18 11:05 GLUCOSE 105 mg/dL 65-99 UREA NITROGEN (BUN) 13 mg/dL 7-25 CREATININE 0.86 mg/dL 0.60-0.93 eGFR NON-AFR. MONTSERRAT[place] 68 mL/min/1.73m2 > OR = 60 eGFR 79 mL/min/1.73m2 > OR = 60 BUN/CREATININE RATIO NOT APPLICABLE (calc) 6-22 SODIUM 142 mmol/L 135-146 POTASSIUM 4.3 mmol/L 3.5-5.3 CHLORIDE 106 mmol/L 98-110 CARBON DIOXIDE 26 mmol/L 20-31 CALCIUM 9.2 mg/dL 8.6-10.4 PROTEIN, TOTAL 6.5 g/dL 6.1-8.1 ALBUMIN 4.1 g/dL 3.6-5.1 GLOBULIN 2.4 g/dL (calc) 1.9-3.7 ALBUMIN/GLOBULIN RATIO 1.7 (calc) 1.0-2. 5 BILIRUBIN, TOTAL 0.5 mg/dL 0.2-1.2 ALKALINE PHOSPHATASE 99 U/L 33-130 AST 13 U/L 10-35 ALT 13 U/L 6- PDM - TRAMADOL - 07/13/18 10:02 Prescribed Drug 1 Tramadol NRG COMMENT NRG Desmethyltramadol 548 ng/mL <100 medMATCH Desmethyltram CONSISTENT NRG Tramadol 7925 ng/mL <100 medMATCH Tramadol CONSISTENT NRG Prescribed Drug 3 Tramadol NRG Methicillin resistant Staphylococcus aur eus (MRSA) screening culture - 05/30/19 12:20 Methicillin resistant Staphylococcus aureus (MRSA) scr eening culture NEG NRG PAIN MGMT,METHAMPHETAMINE D/L ISOMERS, U RINE - 11/29/19 13:56 d Methamphetamine 100 % NRG l Methamphetamine 0 % NRG COMMENT NRG Coronavirus SARS-CoV-2 SO 2018 - 0 13:05 Coronavirus Ab [Units/volume] in Serum Negative Negative Encounters ACCT No. Visit Date/Time Discharge Status Pt. Type Provider Facility Loc./Unit Complaint [id number] 11/29/2014 16:21:00 11/29/2014 23:59: 59 CLS Outpatient PATRICIA JARAMILLO APRN S [id number] 10/16/2014 14:41:00 10/16/2014 23:59: 59 CLS Outpatient PATRICIA JARAMILLO APRN S [id number] 03/14/2014 08:01:00 03/14/2014 23:59: 59 CLS Outpatient PATRICIA JARAMILLO APRN S [id number] 11/30/2013 16:44:00 11/30/2013 23:59: 59 CLS Outpatient PATRICIA JARAMILLO APRN S [id number] 08/16/2013 15:20:00 08/16/2013 23:59: 59 CLS Outpatient PATRICIA JARAMILLO APRN S [id number] 01/05/2013 09:38:00 01/05/2013 23:59: 59 CLS Outpatient GUS JARAMILLO APRNA S [id number] 10/15/2011 16:33:00 10/15/2011 23:59:5 9 CLS Outpatient [id number] 10/15/2011 16:33:00 10/15/2011 23:59: 59 CLS Outpatient GUS JARAMILLO APRNA S [id number] 04/06/2013 16:26:00 Document Registration [id number] 01/05/2013 09:38:00 Document Registration [id number] 04/05/2020 09:11:00 020 14:48:00 DIS Outpatient ALEXA GASTON DO [facility] PREOP VENTRAL/INCISIONAL LARA CO [id number] 06/07/2019 06:32:00 019 12:05:00 DIS Outpatient MARILEE EDWARD MD [facility] SDC RIGHT KNEE MEDIAL MENI SCUS TEAR [id number] 05/30/2019 11:16:00 12:50:00 DIS Outpatient MARILEE EDWARD MD [facility] PREOP RIGHT KNEE MEDIAL MENI SCUS TEAR [id number] 05/12/2019 14:20:00 23:59:59 CLS Preadmit KEAGAN CARTAGENA APRN [facility] RAD HX OF NICOTINE DEP [id number] 04/25/2019 14:48:00 23:59:59 CLS Preadmit PATRICIA JARAMILLO [facility] REHAB R MEDIAL KNEE PAIN [id number] 04/25/2019 10:50:00 23:59:59 CLS Outpatient KEAGAN CARTAGENA APRN [facility] RAD COPD [id number] 04/11/2019 09:06:00 019 23:59:59 CLS Outpatient PATRICIA JARAMILLO [facility] RAD RIGHT MEDIAL KNEE PAIN [id number] 04/20/2018 09:45:00 018 23:59:59 CLS Outpatient KEAGAN CARTAGENA APRN [facility] RAD SCREENING [id number] 04/15/2017 13:15:00 017 23:59:59 CLS Outpatient LEANDRO NELSON DO [facility] RAD COPD,BENNIE ON CPAP,SOB DY SPNEA [id number] 11/24/2016 07:38:00 017 09:09:00 DIS Emergency SATHISH MURPHY MD [facility] ER VOMITING [id number] 11/05/2016 07:45:00 016 18:00:00 DIS Outpatient STEVEN FALCON MD [facility] GALLSTONES [id number] 11/03/2016 11:16:00 11:38:00 DIS Outpatient STEVEN FALCON MD [facility] PREOP GALLSTONES [id number] 10/28/2016 09:10:00 016 23:59:59 CLS Outpatient LEANDRO NELSON DO [facility] RAD SOB,COPD [id number] 10/21/2016 05:48:00 016 08:45:00 DIS Outpatient LEANDRO NELSON DO [facility] SDC BRONCHIAL LESION [id number] 10/20/2016 08:45:00 016 23:59:59 CLS Outpatient LEANDRO NELSON DO [facility] PREOP BRONCHIAL LESION [id number] 10/02/2016 00:28:00 03:28:00 DIS Emergency VIET THOMAS DO [facility] ER SOB [id number] 03/02/2016 09:46:00 23:59:59 CLS Outpatient PATRICIA JARAMILLO [facility] RAD SHOULDER PAIN [id number] 02/22/2016 09:06:00 23:59:59 CLS Outpatient MARY ALCANTARA APRN [facility] RAD R SHOULDER X-RA Y [id number] 08/15/2015 15:00:00 23:59:59 CLS Preadmit LEANDRO NELSON DO [facility] PULM COPD [id number] 07/25/2015 08:00:00 015 00:01:00 DIS Outpatient LEANDRO NELSON DO [facility] PULM COPD [id number] 07/04/2015 08:00:00 015 00:01:00 DIS Outpatient LEANDRO NELSON DO [facility] PULM COPD [id number] 02/14/2015 19:30:00 06:35:00 DIS Outpatient LEANDRO NELSON DO [facility] SLEEP NOCTURNAL HYPOXIA [id number] 12/26/2014 09:41:00 23:59:59 CLS Outpatient LEANDRO NELSON DO [facility] RT COPD [id number] 05/08/2013 13:53:00 23:59:59 CLS Outpatient PATRICIA JARAMILLO [facility] RAD ABN MAMMO [id number] 04/12/2013 15:29:00 23:59:59 CLS Outpatient PATRICIA JARAMILLO [facility] RAD SCREENING [id number] 04/26/2020 09:15:00 P EN Preadmit KEAGAN CARTAGENA HV[employer] DESIGN MECHANICAL ENGINEER [facility] RAD LUNG SCREENING [id number] 04/24/2020 08:30:00 P EN Preadmit KEAGAN CARTAGENA HV[employer] DESIGN MECHANICAL ENGINEER [facility] RT COPD [id number] 04/10/2020 08:29:[address] Outpatient ALEXA GASTON DO [facility] SDC VENTRAL/INCISIONAL HERNIA [id number] 02/13/2016 12:31:00 Document Registration [id number] 08/02/2010 09:44:00 Document Registration [id number] 03/18/2020 09:40:00 03/18/2020 23:59:5 9 CLS Outpatient PATRICIA JARAMILLO APRN [facility] [id number] 11/29/2019 13:20:00 Document Registration [id number] 07/13/2018 09:20:00 Document Registration [id number] 01/17/2018 10:00:00 Document Registration
[2020-04-10] MEDS ORDERED: DEXAMETHASONE 10 MG/ML (DECADRON) 1 ML VIAL ONE (09:11)
[2020-04-10] MEDS ORDERED: BUPIVACAINE 0.5% 30 ML (SENSORCAINE) VIAL ONE (09:11)
[2020-04-10] MEDS ORDERED: ONDANSETRON 4 MG/2 ML (SDV) Z0FRAN ONE ×2 (09:11→11:42)
[2020-04-10] MEDS ORDERED: SEVOFLURANE (ULTANE) 15 ML INHAL SOLN ONE ×2 (09:11→11:25)
[2020-04-10] MEDS ORDERED: NEOSTIGMINE 3 MG/3 ML VIAL ONE (09:11)
[2020-04-10] MEDS ORDERED: GLYCOPYRROLATE 0.2 MG/ML (ROBINUL) 2 ML VIAL ONE (09:11)
[2020-04-10] MEDS ORDERED: ROCURONIUM 10 MG/ML 5 ML SYRINGE IV ONE ×2 (09:11→11:10)
[2020-04-10] MEDS ORDERED: LIDOCAINE PF 2% 5 ML (XYLOCAINE) VIAL ONE (09:11)
[2020-04-10] MEDS ORDERED: proPOfol 200 MG/20 ML (DIPRIVAN) VIAL IV ONE (09:11)
[2020-04-10] MEDS ORDERED: MIDAZOLAM 2 MG/2 ML (VERSED) VIAL ONE (09:12)
[2020-04-10] MEDS ORDERED: fentaNYL INJECTION 100 MCG/2 ML AMP ONE ×2 (09:12→12:14)
[2020-04-10 09:14] LABS: BASOPHILS # (AUTO) 0.1 10^3/uL (0.0-0.1); BASOPHILS % (AUTO) 1 % (0-10); EOSINOPHILS # (AUTO) 0.1 10^3/uL (0.0-0.3); EOSINOPHILS % (AUTO) 2 % (0-10); HEMATOCRIT 43 % (35-52); HEMOGLOBIN 14.1 G/DL (11.5-16.0); LYMPHOCYTES # (AUTO) 1.7 X 10^3 (1.0-4.0); LYMPHOCYTES % (AUTO) 23 % (12-44); MEAN CORPUSCULAR HEMOGLOBIN 28 PG (25-34); MEAN CORPUSCULAR HGB CONC 33 G/DL (32-36); MEAN CORPUSCULAR VOLUME 87 FL (80-99); MEAN PLATELET VOLUME 10.4 FL (7.4-10.4); MONOCYTES # (AUTO) 0.4 X 10^3 (0.0-1.0); MONOCYTES % (AUTO) 6 % (0-12); NEUTROPHILS # (AUTO) 5.2 X 10^3 (1.8-7.8); NEUTROPHILS % (AUTO) 69 % (42-75); PLATELET COUNT 238 10^3/uL (130-400); RED CELL DISTRIBUTION WIDTH 14.5 % (10.0-14.5); WHITE BLOOD COUNT 7.5 10^3/uL (4.3-11.0)
--- NOTE | 2020-04-10 11:23 | Progress Note-Post Operative ---
Post-Operative Progess Note Surgeon (s)/Personal Carer (s) Surgeon ALEXA GASTON DO Personal Carer: nargis Pre-Operative Diagnosis Ventral/Incisional Hernia - incarcerated Post-Operative Diagnosis Same plus ??compromised small intestine Procedure & Operative Findings Date of Procedure 04/10/20 Procedure Performed/Findings 1. SBR 2. Lap inc/vental herniarraphy Anesthesia Type GET Estimated Blood Loss Estimated blood loss (mL): appx 50 ml Specimens/Packing Specimens Removed Portion of SB, hernia contents+ ALEXA GASTON DO April 10, 2020 11:23
--- NOTE | 2020-04-10 11:26 | Discharge Inst-Surgical ---
Discharge Inst-Surgical Depart Medication/Instructions New, Converted or Re-Newed RX: Other (pt has home pain meds) Patient Instructions Follow up Appt: Make appointment for 1 week. [phone] Instructions: No lifting greater than 20 pounds. No strenuous activity. May shower in 24 hours, no tub bath or soaking. Use incentive spirometer at home as directed. No Smoking Skin/Wound Care: May remove bandages in am. You need to leave the [place] in place and come in to the office to have them removed Symptoms to Report: Appetite Changes, Extremity Discoloration, Numbness/Tingling, Swelling Increased, Bleeding Excessive, Eyesight Changes, Pain Increased, Urine Color Change, Constipation(Persistent), Fever over 101 degree F, Pain/Pressure in c hest, Urinating Difficulty, Cough Up/Vomit Blood, Heart Beat Irreg/Pounding, Pain/Pressure in jaw, Cramps in feet or legs, Lightheadedness, Pain/Pressure in shoulder, Diarrhea(Persistent), Memory Changes Suddenly, Questions/Concerns, Weight gain consecutive days, Dizziness/Fainting, Nausea/Vomiting, Shortness of Breath, Weight gain over 2 pounds If questions or concerns contact your physician Or seek help at emergency department. Activity Activity as Tolerated: Yes Activity Instructions: Avoid Stress to Incision Driving Instructions: No Driving/Refer to Dr. Youssef Discharge Diet: No Restrictions Diet After 24 Hours: Clear Liquid if Nauseous If Any Problems/Questions/Issu: Contact Your Physician, Go to Emergency Room Skin/Wound Care Infection Signs and Symptoms: Increased Redness, Foul Odor of Wound, Increased Drainage, Skin Itchy or Has a Rash, Increased Swelling, Temperature Above 101 F Bathing Instructions: Shower Stitches/Estela/Dermabond Dis: Care of ALEXA Belcher DO April 10, 2020 11:25
[2020-04-10] MEDS ORDERED: morphine INJ 10 MG/ML 1ML (SYR OR VIAL) ONE (11:42)
[2020-04-10] MEDS ORDERED: ONDANSETRON 4 MG/2 ML (SDV) Z0FRAN IVP PRN ×2 (11:45→12:15)
[2020-04-10] MEDS ORDERED: KETOROLAC 30 MG/ML VIAL ONE (11:46)
[2020-04-10] MEDS: KETOROLAC 30 MG/ML VIAL IVP SCH ×3 (11:54→22:12)
[2020-04-10] MEDS ORDERED: fentaNYL INJECTION 100 MCG/2 ML AMP IVP ONE (12:15)
[2020-04-10] MEDS ORDERED: morphine INJ 10 MG/ML 1ML (SYR OR VIAL) IVP ONE (12:15)
--- NOTE | 2020-04-10 12:45 | NUR ---
TEJAS GALLO admitted to room 403-1, with an admitting diagnosis of hernia repair and SBO, on 04/10/20 from PACU, accompanied by staff.TEJAS GALLO introduced to surroundings, call light, bed controls, phone, TV, temperature control, lights, meal times, smoking policy, visitor policy, side rail policy, bathrooms and showers. Patient Rights given to patient in the handbook. TEJAS GALLO verbalizes understanding that [facility] is not responsible for the loss or damage to any personal effects or valuables that are kept in the patients posession during their hospitalization. TEJAS GALLO verbalizes understanding of Interdisciplinary Patient Education. Patient and/or family were informed about the Rapid Response Team and its purpose.
[2020-04-10] MEDS: ACETAMINOPHEN 500 MG TAB (TYLENOL) PO SCH ×2 (14:21→20:14)
[2020-04-10] MEDS: metroNIDAZOLE 500MG/100ML IVPB 100 ML IV SCH ×2 (14:46→20:14)
--- OUTSIDE RECORDS SUMMARY | 2020-04-10 15:03 | XMS REPORT ---
Author Author Digital Shadows fitter / welder [place] [facility] Address [address] [address] Care Team Providers Care End User Support Specialist Name Role Phone ISAIAS VEGA Unavailable MIKEY GONZALEZ Unavailable CLINT, PATRICIA Unavailable Unavailable MARY ALCANTARA Unavailable Unavailable [facility] Unavailable [phone] CLINT, PATRICIA Unavailable CLINT, PATRICIA Unavailable CLINT, PATRICIA Unavailable CLINT, PATRICIA Unavailable CLINT, PATRICIA Unavailable CLINT, PATRICIA Unavailable CLINT, PATRICIA Unavailable CLINT, PATRICIA Unavailable CLINT, PATRICIA Unavailable CLINT, PATRICIA Unavailable CLINT, PATRICIA Unavailable CLINT, PATRICIA Unavailable SATHISH MURPHY MD Unavailable Unavailable CLINT, PATRICIA Unavailable CLINT, PATRICIA Unavailable CLINT, PATRICIA JAVA TECHNICAL MANAGER Unavailable Unavailable LEANDRO NELSON DO Unavailable Unavailable MARY ALCANTARA APRN Unavailable Unavailable CLINT, PATRICIA Unavailable CLINT, PATRICIA Unavailable CLINT, PATRICIA Unavailable STEVEN FALCON MD Unavailable Unavailable VIET THOMAS DO Unavailable Unavailable KEAGAN CARTAGENA ALGORITHM DEVELOPER Unavailable Unavailable CLINT, PATRICIA Unavailable CLINT, PATRICIA Unavailable CLINT, PATRICIA Unavailable CLINT, PATRICIA Unavailable CLINT, PATRICIA Unavailable CLINT, PATRICIA Unavailable CLINT, PATRICIA Unavailable CLINT, PATRICIA Unavailable CLINT, PATRICIA Unavailable Migration, Doctor Unavailable Unavailable Migration, Doctor Unavailable Unavailable Migration, Doctor Unavailable Unavailable Migration, Doctor Unavailable Unavailable CLINT, PATRICIA S Unavailable Unavailable EZEKIEL GILMORE, STEVEN Unavailable Unavailable LEANDRO NELSON DO Unavailable Unavailable KEAGAN CARTAGENA ALGORITHM DEVELOPER Unavailable Unavailable CLINT, PATRICIA JAVA TECHNICAL MANAGER Unavailable Unavailable VIET THOMAS DO Unavailable Unavailable KATHERINE GILMORE, SATHISH Ackerman Unavailable Unavailable MARY ALCANTARA ALGORITHM DEVELOPER Unavailable Unavailable CLINT, PATRICIA Unavailable [facility] PCP [phone] [address]AG[address] GILMORE, MARILEE Espinosa Unavailable Unavailable CLINT, [...] Corticosteroid fluticasone 05-30-2019 - LEANDRO BETANCOURT , [facility] Via (21 sources.) s Translations: fluticasone DO risti Translations: [ fluticasone ([id number]) Hospital - [ Allergy to ([id number])] [place] Substance] (20794) Drug Allergy salmeterol salmeterol 05-30-2019 - LEANDRO BETANCOURT , [facility] Via (21 sources.) Translations: Salmeterol DO Alivia Translations: [ Salmeterol] Hospital - [ Allergy to [place] Substance] (37622) Medications Current Medications Medication Ingredient Drug Dose [...] no Acetaminoph no 08-02-20 Complete no Acetaminophe Ellsi information en/Hydrocod information 10 - d information [...] no 10-02-20 Complete no Tiotropium (no information [place] information 16 d information Bromid e phone) (1 source.) (Spiriva) 1 (Spiriva) 1 Inh Aerp, 0 Inh Aerp, 0 Inh Inh Respiratory Respiratory (Inhalation (Inhalation) ) Daily Discontinued no Umeclidiniu no 1 Complete take 1 Umeclidinium (n o information m [place] information puff(s d puff(s) by Bromi de phone) (1 source.) (Incruse ) inhalation (Incruse Ellipta) once daily Ellipta) 62.5 Mcg 62.5 Mcg Blst.w.dev Blst.w.dev 1 Puff RESPIRATORY (INHALATION) Daily Problems Active Problems Problem Normalized Date Last Normalized Normalized Provider Fa cility Classification Problem(s) Recorded Problem Problem Sta tus Duration Allergic Allergy status 04-03-2020 - Episodic Active MARILEE RAMOS [facility] Via reactions (10 to penicillin , MD Bunch sources.) Translations: Hospital - [ ALLERGY [place] STATUS TO OTH (63903) DRUG/MEDS/BIOL SUB] Deficiency and Anemia, 04-03-2020 - Episodic Active MARILEE RAMOS [facility] Via other anemia unspecified , MD [place]unch (5 sources.) Hospital - [place] (91566) Coronary Atheroscleroti 04-10-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 Active KEAGAN [facility] Via atherosclerosi c heart OSIEL Alivia s and other disease of Hospital - heart disease [place] (5 sources.) coronary (89894) artery without angina pectoris Residual Breast cancer Episodic Active PATRICIA CLINT Com munity codes; screening [facility] [facility] unclassified declined of [place] (10 sources.) Translations: [place] (95976) [ Mammogram declined] Biliary tract Calculus of 04-03-2020 - Episodic Active VIET THOMAS [facility] Via disease (20 gallbladder , DO Alivia sources.) without Hospital - cholecystitis [place] without (21191) obstruction Translations: [ CALCULUS OF GALLBLADDER W CHRONIC CHOLEC] Chronic Chronic no information Active [facility] obstructive obstructive CENTER/RACHEL [facility] pulmonary pulmonary 58618 Hospital disease and disease and (16096) bronchiectasis bronchiectasis (1 source.) Residual Chronic pain Episodic Active PATRICIA CLINT Comm unity codes; Translations: [address]115 [facility] unclassified [ Other of [facility] (10 sources.) chronic pain] [place] (85249) Respiratory Dependence on 04-03-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 Active MARILEE EDWARD [facility] Via failure; supplemental , MD [facility] insufficiency; oxygen Hospital - arrest (adult) [place] (5 sources.) (36390) Joint Derangement 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-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 Active PATRICIAALBA DAVIS [facility] Via disorders and unspecmalena [place] dislocations; medial Hospital - trauma-related meniscus due [place] (11 sources.) to old tear or (95371) injury, right knee Translations: [ CHONDROMALACIA PATELLAE, RIGHT KNEE] Residual Family history 04-03-2020 - Episodic Active MARILEE RAMOS [facility] Via codes; of asthma and , MD [facility] unclassified other chronic Hospital - (5 sources.) lower [place] respiratory (75851) diseases Residual Hypersomnia, 04-10-2020 - Episodic Active LEANDRO Rubi , [facility] Via codes; unspecified DO Bunch unclassified Hospital - (20 sources.) [place] (88397) Other lower Hypoxemia 04-10-2020 - Episodic Active LEANDRO Rubi , [facility] Via respiratory DO Alivia disease (20 Hospital - sources.) [place] () 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-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 Active LEANDRO NELSON [facility] Via codes; sleep related DO Alivia unclassified nonobstructive Hospital - (19 sources.) 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 (85992) n Translations: [ OBSTRUCTIVE SLEEP APNEA (ADULT) (PEDIATR] Nausea and Nausea with 04-03-2020 - Episodic Active SATHISH [facility] Via vomiting (18 vomitingKATHERINE MD Christi sources.) unspecified Hospital - [place] (41985) Substance-rela Nicotine 04-10-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 Active KEAGAN [facility] Via sunshine disorders dependenceOSIEL (6 sources.) unspecified, Hospital - in remission [place] () Other Obesity, 04-10-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 Active LEANDRO NELSON [facility] Via nutritional; unspecified DO Alivia endocrine; and Hospital - metabolic [place] disorders (20 (67369) sources.) Residual Obstructive 04-10-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 Active LEANDRO NELSON H Via codes; sleep apnea DO Alivia unclassified (adult) Hospital - (20 sources.) (pediatric) [place] Translations: (20560) [ - Obstructive sleep apnea syndrome G47.33] Residual Obstructive 04-10-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 Active LEANDRO NELSON [facility] Via codes; sleep apnea DO Alivia unclassified (adult)(pediat Hospital - (6 sources.) magy) [place] () Residual Obstructive Chronic Active PATRICIA Amarou nity codes; sleep apnea [address] [place] [address] unclassified syndrome of [facility] (15 sources.) Translations: [place] (29458) [ Obstructive sleep apnea syndrome] Other Other long 04-03-2020 - Episodic Active MARILEE WOLFE A [facility] Via aftercare (5 term (current) MD [place]unch sources.) drug therapy [facility] (84387) Other lower Other 04-03-2020 - Episodic Active VIET MOTLEY IN [facility] Via respiratory nonspecific , DO Alivia disease (15 abnormal Hospital - sources.) finding of [place] lung field (75130) Other bone Other 04-10-2020 - Episodic Active PATRICIA ZEENAT N [facility] Via disease and specified Alivia musculoskeleta disorders of Hospital - l deformities cartilage, [place] (6 sources.) other site (38423) Residual Other no information Active PATRICIA CLINT Com munity codes; specified [address] [place] [address] Center unclassified postprocedural of [facility] (5 sources.) [facility] (43626) Translations: [ - Status post arthroscopic knee surgery Z98.890] Residual Other Episodic Active PATRICIA CLINT Communit y codes; specified [id number] [place] [address] Center unclassified postprocedural of [facility] (10 sources.) [facility] (05112) Translations: [ - Status post arthroscopic knee surgery Z98.890] Joint Other tear of 04-03-2020 - Episodic Active MARILEE GOODMAN [facility] Via disorders and medial MD [place] dislocations; meniscus, Hospital - trauma-related current [place] (5 sources.) injury, right (93048) knee, initial encounter Other Pain in right 04-03-2020 - Episodic Active SHEINA HUF FMAN Not Available non-traumatic shoulder (22323) joint Translations: disorders (20 [ - Right sources.) shoulder pain M25.511, - Right shoulder pain M25.511] Other lower Shortness of 04-10-2020 - Episodic Active CARINA E Not Available respiratory breath OSIEL (11740) disease (23 sources.) Osteoarthritis Unspecified 04-03-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 Active NEEMA EDWARD [facility] Via (5 sources.) osteoarthritis , MD [place]unch , unspecified Hospital - site [place] (37096) Other lower Wheezing Episodic Active PATRICIA CLINT Commun ity respiratory Translations: [id number] [place] [address] Center disease (20 [ - Wheezing of [place] sources.) R06.2, - [place] (77051) Wheezing R06.2] Viral Zoster without Episodic Active PATRICIA CLINT Co mmunity infection (3 complications 57146 [facility] sources.) Translations: of [facility] [ - Herpes [place] (88426) zoster without complication B02.9] Unclassified no information no information Active [facility] Via (1 source.) CENTER/RACHEL Bunch [facility] (32173) Past or Other Problems Problem Normalized Date Last Normalized Normalized Provider Fa cility Classification Problem(s) Recorded Problem Problem Sta tus Duration Unclassified no information 04-10-2020 - no information no infor mary lou NELSON [facility] Via (7 sources.) DO [facility] (89642) Unclassified no information 04-10-2020 - no information no infor mary lou NELSON [facility] Via (7 sources.) DO [facility] (47627) Unclassified no information 04-10-2020 - no information no infor mary lou NELSON [facility] Via (7 sources.) DO [facility] (44141) Unclassified no information 04-10-2020 - no information no infor mary lou NELSON [facility] Via (7 sources.) DO [facility] (38045) Procedures Procedure Normalized Procedure Procedure Result Performer Facility Date 06-07-2019 Arthroscopic partial no information MARILEE WOLFE [facility] 03-14-2014 Assay of thyroid no information no name [facility] stimulating hormone [facility] (45800) 03-14-2014 Blood count complete no information no name [facility] auto&auto difrntl wbc [facility] (55451) 01-17-2018 Collection venous no information no name [facility] blood venipuncture [facility] (01978) 03-14-2014 Collection venous no information no name [facility] blood venipuncture [facility] (88385) 03-14-2014 Comprehensive no information no name [facility] metabolic panel [facility] (87073) 05-04-2018 Fall risk assessment no information no name [facility] docd [facility] (49049) 10-10-2018 FQHC visit, estab pt no information no name [facility] (61451) 07-13-2018 FQHC visit, estab pt no information no name [facility] (68062) 01-17-2018 FQHC visit, estab pt no information no name [facility] (34939) 05-04-2018 FQHC visit, IPPE or no information no name [facility] AWV [facility] (37892) 11-30-2013 Iaadiadoo influenza no information no name [facility] (74808) 07-13-2018 LAB NOT BILLED BY no information no [facility] (23265) 01-17-2018 LAB NOT BILLED BY no information no [facility] (61786) 03-14-2014 Lipid panel no information no name [facility] ealth [facility] (28017) 11-30-2013 Methylprednisolone no information no name [facility] injection [facility] (28937) 11-29-2014 Noninvasive ear/pulse no information no name [facility] oximetry single [facility] (52535) 10-16-2014 Noninvasive ear/pulse no information no name [facility] oxim[facility] (99037) 11-30-2013 Noninvasive ear/pulse no information no name [facility] oximetry [facility] (48971) 05-04-2018 Pt tobacco screen rcvd no information no name [facility] tlk [facility] (73423) 11-30-2013 Therapeutic no information no name [facility] prophylactic/dx [facility] subq/[facility] (59434) Immunizations Normalized Immunization Date Notes Care Provider Facili ty Immunization influenza, seasonal, 09-18-2019 no information no name [facility] injectable [facility] (03333) influenza, seasonal, 08-16-2018 no information no name [facility] injectable [facility] (31317) pneumococcal 01-17-2018 - no information PATRICIA JARAMILLO 59622 [facility] conjugate vaccine, 01-17-2018 [facility] 13 valent [place] (27248) Translations: [ PCV 13] vaccine no information [facility] Via Translations: [ 77531 [facility] vaccine] (17797) SINGLE IMMUNIZATION 01-17-2018 no information PATRICIA JARAMILLO 6 [phone] [facility] ADMIN [facility] (69647) Results Test Name Value Interpretation Reference Range Date Time Fa cility (Normalized) (Normalized) (Medline Reference) not yet categorized on 2020-04-10 no information NAME: (no code) PENDING LOCATIO N VARCHANTALTEJAS Gretchen [facility] (61921) ~[facility] REC#: [id number] ~ ~PHYSICIAN: ALEXA GASTON DO ~Post-Operative Progess Note ~Surgeon (s)/Mechanical Drawing Teacher (s) ~Surgeon ~ALEXA GASTON DO ~Mechanical Drawing Teacher: nargis ~ ~Pre-Operative Diagnosis ~Ventral/Incisio nal Hernia - incarcerated ~ ~Post-Operative Diagnosis ~ ~Same plus ??compromised small intestine ~ ~Procedure Operative Findings ~Date of Procedure ~04/10/20 ~Procedure Performed/Findin gs ~1. SBR ~2. Lap inc/vental herniarraphy ~Anesthesia Type ~GET ~ ~Estimated Blood Loss ~Estimated blood loss (mL): appx 50 ml ~ ~Specimens/Packi ng ~Specimens Removed ~Portion of SB, hernia contents+ ~ ~ ~ ~ALEXA GASTON DO April 10, 2020 11:23 ~ ~ ~<Created by ALEXA GASTON DO> ~<Electronically signed by ALEXA GASTON DO> 04/10/20 1123 ~ ~ laboratory on 2020-04-10 Creatinine 0.77 mg/dL (NEG) 04-10-2020 PENDING LOCATI ON [Mass/Vol] 10:00-0400 [facility] (52782) laboratory on 2020-04-05 Coronavirus Ab Negative (no code) 04-05-2020 PENDING LOC ATION Qn (S) 09:05-0400 [facility] (76286) not yet categorized on 2019-11-29 Abnormal no information (no code) [facility] Validity Test: [facility] (39604) COMMENT no information (no code) [facility] (23370) COMMENT no information (no code) [facility] (31874) d 100 (N) [facility] (81247) l 0 (N) [facility] (31988) Prescribed Drug no information (no code) [facility] (39398) Prescribed Drug no information (no code) [facility] (87459) Prescribed Drug no information (no code) [facility] () Prescribed Drug no information (no code) [facility] (13938) Prescribed Drug no information (no code) [facility] () laboratory on 2019-11-29 1-Hydroxymidazol no information (no code) [facility] ([facility] [Mass/Vol] [facility] () 1-Vuujxsoggl-1,5 no information (no code) [facility] -Dimethyl-3,3-Di [facility] phenylpyrrolidin [facility] e (EDDP) (U) () [Mass/Vol] 7-Aminoclonazepa no information (no code) [facility] (U) [Mass/Vol] [facility] () Albumin 4.1 g/dL (N) 3.4 - 5.4 g/dL [facility] [Mass/Vol] [facility] () Albumin/Globulin 1.6 {ratio} (N) 1 - 2.5 {ratio} Comm [facility] [Mass ratio] [facility] () ALP [Catalytic 89 U/L (N) 44 - 147 U/L [facility] activity/Vol] [facility] (49083) Alpha no information (no code) [facility] hydroxyalprazola [facility] m (U) [Mass/Vol] [facility] (89380) Alpha no information (no code) [facility] hydroxytriazolam [facility] (U) [Mass/Vol] [facility] (55309) ALT [Catalytic 15 U/L (N) 4 - 40 U/L [facility] ealth activity/Vol] [facility] (92004) Amobarbital (U) no information (no code) [facility] th [Mass/Vol] [facility] (16858) Amphetamine (U) no information (no code) Psychiatric hospital [Mass/Vol] [facility] (86039) Amphetamines Ql no information (no code) [facility] th (U) [facility] (29885) AST [Catalytic 16 U/L (N) 10 - 34 U/L [facility] activity/Vol] [facility] (10161) Barbiturates Ql no information (no code) [facility] (U) [facility] (05062) Basophils (Bld) 0.097 10*3/uL (N) 0 - 0.3 10*3/uL [facility] [#/Vol] [facility] () Basophils/100 0.9 % (N) 0.5 - 1 % [facility] WBC (Bld) [facility] () Benzodiazepines no information (no code) [facility] Ql (U) [facility] () Benzoylecgonine no information (no code) Psychiatric hospital (U) [Mass/Vol] [facility] (18510) Benzoylecgonine no information (no code) [facility]iatric hospital Ql (U) [facility] () Bilirubin 0.3 mg/dL (N) 0.1 - 1.2 mg/dL [facility] [Mass/Vol] [facility] (71084) Butalbital (U) no information (no code) [facility] [Mass/Vol] [facility] (04252) Calcium 9.6 mg/dL (N) 8.5 - 10.2 mg/dL [facility] [Mass/Vol] [facility] (86541) Chloride 104 mmol/L (N) 95 - 106 mmol/L [facility] [Moles/Vol] [facility] (29697) Cholesterol 182 mg/dL (N) 180 - 200 mg/dL [facility] [Mass/Vol] [facility] (63498) Cholesterol in 71 mg/dL (N) [facility] HDL [Mass/Vol] [facility] (79950) Cholesterol in 83 mg/dL (N) 0 - 100 mg/dL [facility] LDL [Mass/Vol] [facility] (64056) Cholesterol non 111 mg/dL (N) Psychiatric hospital HDL [Mass/Vol] [facility] (30514) Cholesterol.tota 2.6 {ratio} (N) [facility] l/Cholesterol in [facility] HDL [Mass ratio] [facility] (42838) CO2 [Moles/Vol] 27 mmol/L (N) 23 - 29 mmol/L [facility] (74571) Codeine (U) no information (no code) [facility] [Mass/Vol] [facility] (84238) Creatinine (U) 0 mg/dL (no code) [facility] [Mass/Vol] [facility] (33522) Creatinine (U) 219.9 mg/dL (N) [facility] [Mass/Vol] [facility] (24718) Creatinine 1.21 mg/dL (H) [facility] [Mass/Vol] [facility] (25484) Drug screen no information (no code) [facility] h comment (U) [facility] [Interp] [facility] (95935) Eosinophils 0.248 10*3/uL (N) 0.05 - 0.5 Community [facility] (Bld) [#/Vol] 10*3/uL [facility] (60064) Eosinophils/100 2.3 % (N) 1 - 4 % [facility] WBC (Bld) [facility] (90945) Erythrocyte 13.5 % (N) 11.6 - 14.6 % Community [facility] ealth distribution [facility] width (RBC) [facility] [Ratio] (18739) GFR/1.73 sq M 51 (L) 90 - 120 [facility] alth predicted among mL/min/{1.73_m2} mL/min/{1.73_m2} Center o f [facility] blacks MDRD [facility] (S/P/Bld) [Vol (84512) rate/Area] GFR/1.73 sq 44 (L) 90 - 120 [facility] th M.predicted MDRD mL/min/{1.73_m2} mL/min/{1.73_m2} [facility] (S/P/Bld) [Vol [facility] rate/Area] (53042) Globulin (S) 2.6 g/dL (N) 2 - 3.5 g/dL [facility] ealt [Mass/Vol] [facility] (08760) Glucose 98 mg/dL (N) 60 - 125 mg/dL [facility] [Mass/Vol] [facility] (42710) Hematocrit (Bld) 43.3 % (N) 36.1 - 50.3 % [facility] [[facility] Center [facility] (93309) Hemoglobin (Bld) 14.1 g/dL (N) 12.1 - 17.2 g/dL [facility] [Mass/Vol] [facility] (83260) Hydrocodone (U) no information (no code) Psychiatric hospital [Mass/Vol] [facility] (22641) Hydromorphone no information (no code) [facility] (U) [Mass/Vol] [facility] (51566) Hydroxyethylflur no information (no code) [facility] azepam (U) [facility] [Mass/Vol] [facility] (12077) Lorazepam (U) no information (no code) [facility] [Mass/Vol] [facility] (51416) Lymphocytes 2.948 10*3/uL (N) 0.9 - 2.9 [facility]th (Bld) [#/Vol] 10*3/uL [facility] (20045) Lymphocytes/100 27.3 % (N) 20 - 40 % [facility] WBC (Bld) [facility] (59593) MCH (RBC) 27.5 pg (N) 27 - 31 pg Psychiatric hospital [Entitic mass] [facility] (43489) MCHC (RBC) 32.6 g/dL (N) 32 - 36 g/dL [facility] alth [Mass/Vol] [facility] (90616) MCV (RBC) 84.6 fL (N) 80 - 100 fL [facility] [Entitic vol] [facility] (96766) Methadone (U) no information (no code) [facility] [Mass/Vol] [facility] (04176) Methadone Ql (U) no information (no code) [facility] (61748[facility] Methamphetamine 0 ug/mL (no code) [facility] (U) [Mass/Vol] [facility] (81975) Monocytes (Bld) 0.724 10*3/uL (N) 0.3 - 0.9 [facility] [facility] [#/Vol] 10*3/uL [facility] (86335) Monocytes/100 6.7 % (N) 2 - 8 % [facility] WBC (Bld) [facility] (89851) Morphine (U) no information (no code) [facility] [Mass/Vol] [facility] (47019) Neutrophils 6.782 10*3/uL (N) 1.7 - 7 10*3/uL [facility] (Bld) [#/Vol] [facility] (22116) Neutrophils/100 62.8 % (N) 40 - 60 % [facility] WBC (Bld) [facility] (13517) Nordiazepam (U) no information (no code) [facility] [Mass/Vol] [facility] (10038) Norhydrocodone no information (no code) [facility] Confirm (U) [facility] [Mass/Vol] [facility] (06437) Noroxycodone no information (no code) [facility] [Mass/Vol] [facility] (10918) Opiates Ql (U) no information (no code) [facility] (92446) Oxazepam (U) no information (no code) [facility] [Mass/Vol] [facility] (09976) Oxidants Ql (U) no information (no code) [facility] (76219) Oxycodone (U) no information (no code) [facility] [Mass[facility]Vol[facility] (17401) Oxycodone Ql (U) no information (no code) [facility]56371) Oxymorphone (U) no information (no code) [facility] [Mass/Vol] [facility] (21375) Pentobarbital no information (no code) [facility] (U) [Mass/Vol] [facility] (20490) pH (U) 6.0 [pH] (N) 4.6 - 8 [pH] [facility] (76656) pH (U) 0 [pH] (no code) 4.6 - 8 [pH] [facility] (65516) Phencyclidine no information (no code) [facility] (U) [Mass/Vol] [facility] (56012) Phencyclidine Ql no information (no code) [facility] (U) [facility] (98533) Phenobarbital no information (no code) [facility] (26047) Platelet mean 11.6 fL (N) 7.2 - 11.7 fL [facility] volume (Bld) [facility] [Entitic vol] [facility] (21339) Platelets (Bld) 268 10*3/uL (N) 150 - 450 [facility] [#/Vol] 10*3/uL [facility] (60068) Potassium 4.8 mmol/L (N) 3.7 - 5.2 mmol/L [facility] [Moles/Vol] [facility] (89049) Protein 6.7 g/dL (N) 6.4 - 8.3 g/dL [facility] [Mass/Vol] [facility] (08981) RBC (Bld) 5.12 10*6/uL (H) 4.2 - 6.1 [facility] [#/Vol] 10*6/uL [facility] (43024) Reference lab no information (no code) [facility] name Unsp time [facility] (Reference [facility] lab test) [ID] (08048) Secobarbital (U) no information (no code) [facility] [Mass/Vol] [facility] () Sodium 142 mmol/L (N) 135 - 145 mmol/L [facility] [Moles/Vol] [facility] (49237) Specific gravity no information (no code) [facility] (U) [Rel [facility]] [facility] (31500) Temazepam (U) no information (no code) [facility] [Mass/Vol] [facility] (41335) Tetrahydrocannab no information (no code) [facility] inol (U) [facility] [Mass/Vol] [facility] (91277) Tetrahydrocannab no information (no code) [facility] lt inol Ql (U) [facility] (35818) Triglyceride 186 mg/dL (H) 0 - 150 mg/dL [facility] [Mass/Vol] [facility] (88314) Urea nitrogen 18 mg/dL (N) 7 - 20 mg/dL [facility] [Mass/Vol] [facility] (67802) Urea 15 mg/mg (N) 6 - 22 mg/mg [facility] nitrogen/Creatin [facility] [Mass ratio] [facility] (56547) WBC (Bld) 10.8 10*3/uL (N) 3.5 - 10.5 [facility] [#/Vol] 10*3/uL [facility] (70187) methicillin resistant staphylococcus aureus (mrsa) screening culture on 2019-05-30 MRSA isol Org MRSA not (no code) [place] [facility] specific cx Ql [facility] ([facility] spec) (05468) urinalysis on 2018-07-13 Amphetamines Ql Negative (no [...] (no code) no information Desmethyltramado 548 (H) [facility] l [facility] (20981) medMATCH CONSISTENT (no code) no information Amphetamines medMATCH CONSISTENT (no code) no information Barbiturates medMATCH CONSISTENT (no code) no information Benzodiazepines medMATCH Cocaine CONSISTENT (no code) no informatio n Metab medMATCH CONSISTENT (no code) [facility] Desmethyltram [facility] (24336) medMATCH CONSISTENT (no code) no information Marijuana Metab medMATCH CONSISTENT (no code) no information Methadone Metab medMATCH Opiates CONSISTENT (no code) no informatio n medMATCH CONSISTENT (no code) no information Oxycodone medMATCH CONSISTENT (no code) no information Phencyclidine medMATCH CONSISTENT (no code) [facility] Tramadol [facility] (56789) Oxidant Negative (no code) no information Oxycodone Negative (no code) no information Prescribed Drug Tramadol (no code) no information 1 Prescribed Drug Tramadol (no code) no information 3 Tramadol 7925 (H) [facility] (11514) hematology on 2018-07-13 pH (Bld) 7.23 [pH] (no code) 7.38 - 7.42 [pH] no infor mation other on 2018-01-17 Albumin/Globulin 1.7 (N) [facility] mass ratio [facility] (19972) Cholesterol in 93 (N) [facility] LDL mass conc [facility] (89781) Cholesterol non 119 (N) [facility] HDL mass [facility] (20199) Cholesterol.tota 2.7 (N) [facility] l/Cholesterol in [facility] HDL mass ratio [facility] (94884) Globulin 2.4 (N) [facility] Calculated mass [facility] (S) [facility] (23371) metabolic panel on 2018-01-17 Albumin mass 4.1 g/dL (N) 3.4 - 5.4 g/dL [facility] (16438) ALP enzyme 99 U/L (N) 44 - 147 U/L [facility] act/[facility] (29415) ALT enzyme 13 U/L (N) 4 - 40 U/L [facility] (22931) AST enzyme 13 U/L (N) 10 - 34 U/L [facility] act/[facility] (71797) Bilirubin mass 0.5 mg/dL (N) 0.1 - 1.2 mg/dL [facility] (74982) Calcium mass 9.2 mg/dL (N) 8.5 - 10.2 mg/dL [facility] (36879) Chloride molar 106 mmol/L (N) 95 - 106 mmol/L [facility] (92164) CO2 molar conc 26 mmol/L (N) 23 - 29 mmol/L [facility] (20288) Creatinine mass 0.86 mg/dL (N) [facility] (57112) GFR/1.73 sq M 79 (N) 90 - 120 [facility] predicted among mL/min/{1.73_m2} mL/min/{1.73_m2} [facility] MDRD [facility] rate/area (60861) (S/P/Bld) GFR/1.73 sq 68 (N) 90 - 120 [facility].predicted MDRD mL/min/{1.73_m2} mL/min/{1.73_m2} [facility] rate/[facility] (20853) Glucose mass 105 mg/dL (H) 60 - 125 mg/dL [facility] (50686) Potassium molar 4.3 mmol/L (N) 3.7 - 5.2 mmol/L [facility] (04959) Protein mass 6.5 g/dL (N) 6.4 - 8.3 g/dL [facility] (05289) Sodium molar 142 mmol/L (N) 135 - 145 [facility]/L [facility] (05492) Urea nitrogen 13 mg/dL (N) 7 - 20 mg/dL [facility] (51703) Urea NOT APPLICABLE (no code) [facility] nitrogen/Creatin [facility] (40159) cardiac on 2018-01-17 Cholesterol in 71 mg/dL (N) [facility] HDL mass [facility] (72911) Cholesterol mass 190 mg/dL (N) 180 - 200 mg/dL [facility] (30344) Triglyceride 166 mg/dL (H) 0 - 150 mg/dL [facility] (67715) Vital Signs Vital Sign Value Interpretation Reference Date Time Care [facility] ider Facility (Normalized) (Normalized) Range BMI (Body Mass 42.7 kg/m2 (no code) 15 - 25 kg/m2 10-10-2018 [facility]) 10:00-[address] [place] [address] (80695) BMI (Body Mass 41.82 kg/m2 (no code) 15 - 25 kg/m2 07-13-2018 B DANNY [facility] Community Index) 10:20-[address] [place] [address] (74879) BMI (Body Mass 41.15 kg/m2 (no code) 15 - 25 kg/m2 05-04-2018 B [facility] Community Index) 11:40-[address] [place] [address] (31226) BMI (Body Mass 39.33 kg/m2 (no code) 15 - 25 kg/m2 01-17-2018 [facility] Community [facility]) 10:00-0500 94200 [facility] (15935) Body height 167.64 cm (no code) cm 03-13-2014 [facility] 17:09-[address] [place] [address] (60255) Body height 167.64 cm (no code) cm 11-30-2013 [facility] 16:44-[address] [place] [address] (55737) Body 98.2 [degF] (no code) 97.8 - 99.0 11-26-[address] [facility] Temperature [degF] 10:00-0500 69572 [facility] (94132) Body 97.9 [degF] (no code) 97.8 - 99.0 07-13-[address] [facility] Temperature [degF] 10:20-0400 49824 [facility] (61544) Body 97.6 [degF] (no code) 97.8 - 99.0 05-04-[address] [facility] Temperature [degF] 11:40-0400 07972 [facility] (81417) Body 98.2 [degF] (no code) 97.8 - 99.0 01-17-[address] [facility] Temperature [degF] 10:00-0500 07825 [facility] (67934) Body 99.2 [degF] (no code) 97.8 - 99.0 11-29-[address] [facility] Temperature [degF] 16:21-0500 50307 [facility] (48106) Body 98.2 [degF] (no code) 97.8 - 99.0 10-16-[address] [facility] Temperature [degF] 14:41-0500 06538 [facility] (93745) Body 98.4 [degF] (no code) 97.8 - 99.0 03-13-[address] [facility] temperature [degF] 17:09-0400 43793 [facility] (96328) Body 98.6 [degF] (no code) 97.8 - 99.0 11-30-[address] [facility] temperature [degF] 16:44-0500 54546 [facility] (34373) Body weight 90.72 kg (no code) kg 11-29-2014 [facility] 16:21-0500 78425 [facility] (66015) Body weight 91.49 kg (no code) kg 10-16-2014 [facility] 14:41-0500 57404 [facility] (79883) Body weight 90.4 kg (no code) kg 03-13-2014 [facility]ly [facility] 17:090400 66315 [facility] (32942) Body weight 89.09 kg (no code) kg 11-30-2013 PATRICIA ZEENATFormerly [facility] [id number]:440500 [address] [place] [address] (27109) Height 167.64 cm (no code) cm 10-10-2018 [facility] 10:00-[address] [place] [address] (92977) Height 167.64 cm (no code) cm 07-13-2018 [facility] 10:200400 [address] [place] [address] (42893) Height 167.64 cm (no code) cm 05-04-2018 [facility] 11:40-[address] [place] [address] (03813) Height 167.64 cm (no code) cm 01-17-2018 [facility] 10:00-[address] [place] [address] (46579) Height 167.64 cm (no code) cm 11-29-2014 [facility] 16:210500 [address] [place] [address] (59150) Height 167.64 cm (no code) cm 10-16-2014 [facility] 14:41-[id number] [place] [address] (10244) Pulse Oximetry 0 % (no code) 95 - 100 % 10-10-2018 [facility] 10:00-[id number] [place] [address] (89621) Pulse Oximetry 0 % (no code) 95 - 100 % 05-04-2018 [facility] 11:40-[id number] [place] [address] (55041) Pulse Oximetry 0 % (no code) 95 - 100 % 01-17-2018 [facility] 10:00-0500 32896 [facility] (99618) Weight 120.02 kg (no code) kg 10-10-2018 PATRICIA JARAMILLO [facility] 10:00-[address] [place] [address] (93562) Weight 117.53 kg (no code) kg 07-13-2018 PATRICIA JARAMILLO [facility] 10:20-0400 14672 [facility] (10773) Weight 115.67 kg (no code) kg 05-04-2018 PATRICIA JARAMILLO [facility] 11:40-[address] [place] [address] (45768) Weight 110.54 kg (no code) kg 01-17-2018 PATRICIA JARAMILLO [facility] 10:00-[address] [place] [address] ([id number]) Interventions No Information Plan of Treatment Normalized Care Care Detail Care Activity Date Care Provider F acility Activity (CHM) [facility] 10-10-2018 PATRICIA EPPERSON N [id number] [place] [address] ([id number]) Patient encounter no information 04-26-2020 KEAGAN CARTAGENA [facility] (67610) Goals No Information Social History No Information Functional Status The data below is from unstructured sources Query Response Date Bhupendra rded [place] Opioid-induced Sedation Scale (POSS) Awake and alert June 07, 2019 10:52am Mental Status No Information Encounters Encounter Normalized Encounter Encounter Diagnosis Care Provi radha Organization Date Type 06-07-2019 Admission to day no information MARILEE Ospina rk no organization name - surgery Phone: 06-07-2019 02-10-2020 [facility] [place] without CRYSTAL LU (no [facility] CARE complications phone) CARE (no phone) 11-29-2019 [facility] Chronic obstructive PATRICIA BR SUSAN (no [facility] pulmonary disease, phone) (no phone) unspecified 09-18-2019 [facility] Encounter for PATRICIA JARAMILLO (no [facility] immunization phone) (no phone) 11-24-2016 Emergency department no information no name no organization name - patient visit 11-24-2016 11-24-2016 Emergency department no information SATHISH BAPTISTE MD [facility] - patient visit (no phone) [facility] 11-24-2016 (no phone) 10-01-2016 Emergency department no information VIET Allison DO [facility] - patient visit (no phone) [facility] 10-01-2016 (no phone) 07-13-2018 Patient encounter [...] ganization name 08-15-2015 Patient encounter no information LEANDRO NELSON DO (no [facility] phone) [facility] (no phone) 07-25-2015 Patient encounter no information LEANDRO NELSON DO (no [facility] - phone) [facility] 08-14-2015 (no phone) 07-04-2015 Patient encounter no information LEANDRO NELSON DO (no [facility] - phone) [facility] 07-08-2015 (no phone) 02-14-2015 Patient encounter no information no name no or ganization name - 02-15-2015 12-26-2014 Patient encounter no information no name no or ganization name 05-08-2013 Patient encounter no information no name no or ganization name 04-12-2013 Patient encounter no information no name no or ganization name NEGATED Patient encounter no information no name no or ganization name 04-10-2020 Patient encounter no information ALEXA B DELMAN DO ( no [facility] procedure phone) [facility] (no phone) 04-05-2020 Patient encounter no information ALEXA GASTON DO ( no [facility] - procedure phone) [facility] 04-05-2020 (no phone) 02-10-2020 Patient encounter no information PATRICIA JARAMILLO ( no [facility]) [facility] (no phone) 11-29-2019 Patient encounter no information no name no or ganization name procedure 06-28-2019 Patient encounter Encounter for general PATRICIA BREKeegan BARRAZA (no [facility] - procedure adult medical phone) (no phone) 06-28-2019 examination without - abnormal findings 06-28-2019 06-07-2019 Patient encounter no information MARILEE Ackerman [facility] - procedure (no phone) [facility] 06-07-2019 (no phone) 05-30-2019 Patient encounter no information MARILEE carvajal no organization name - procedure Phone: 05-30-2019 05-30-2019 Patient encounter no information MARILEE Ackerman [facility] - procedure (no phone) [facility] 05-30-2019 (no phone) 04-25-2019 Patient encounter no information no name no or ganization name procedure 04-25-2019 Patient encounter no information KEAGAN CARTAGENA [facility] procedure ALGORITHM DEVELOPER (no phone) [facility] (no phone) 04-11-2019 Patient encounter no information no name no or ganization name procedure 04-11-2019 Patient encounter no information PATRICIA Espinosa [facility] procedure (no phone) [facility] (no phone) 03-29-2019 Patient encounter no information no name no or ganization name procedure 03-28-2019 Patient encounter no information no name no or ganization name procedure 01-11-2019 Patient encounter no information no name no or ganization name procedure 10-10-2018 Patient encounter no information no name no or ganization name procedure 04-20-2018 Patient encounter no information KEAGAN CARTAGENA [facility] procedure ALGORITHM DEVELOPER (no phone) [facility] (no phone) 04-15-2017 Patient encounter no information LEANDRO NELSON DO (no [facility] procedure phone) [facility] (no phone) 11-24-2016 Patient encounter no information no name no or ganization name procedure 11-05-2016 Patient encounter no information STEVEN FALCON MD (n o [facility] - procedure phone) [facility] 11-05-2016 (no phone) 11-03-2016 Patient encounter no information STEVEN FALCON MD (n o [facility] - procedure phone) [facility] 11-03-2016 (no phone) 10-28-2016 Patient encounter no information LEANDRO NELSON DO (no [facility] procedure phone) [facility] (no phone) 10-21-2016 Patient encounter no information LEANDRO NELSON DO (no [facility] - procedure phone) [facility] 10-21-2016 (no phone) 10-20-2016 Patient encounter no information LEANDRO NELSON DO (no [facility] procedure phone) [facility] (no phone) 03-02-2016 Patient encounter no information PATRICIA JARAMILLO ARN P [facility] procedure (no phone) [facility] (no phone) 02-22-2016 Patient encounter no information MARY MENDOZA [facility] procedure (no phone) [facility] (no phone) 02-13-2016 Patient encounter no information KEAGAN CARTAGENA [facility] procedure ALGORITHM DEVELOPER (no phone) [facility] (no phone) 12-26-2014 Patient encounter no information LEANDRO NELSON DO (no [facility] procedure phone) [facility] (no phone) 05-04-2018 [facility], initial visit no information no name no organization name 02-15-2020 Telephone encounter no information PATRICIA JARAMILLO ( no [employer] [facility] phone) (no phone) 02-12-2020 Telephone encounter Pain in thoracic spine PATRICIA B MARKOSNAN (no [employer] [facility] phone) (no phone) 02-07-2020 Telephone encounter Pain in thoracic spine PATRICIA B RENNAN (no [employer] [facility] phone) (no phone) 01-08-2020 Telephone encounter Pain in thoracic spine PATRICIA B RENNAN (no [facility] phone) (no phone) 12-21-2019 Telephone encounter no information PATRICIA JARAMILLO ( no [facility] phone) (no phone) 12-19-2019 Telephone encounter no information PATRICIA MARTINEZAN ( no [facility] phone) (no phone) 12-13-2019 Telephone encounter Pain in thoracic spine PATRICIA B RENMADI (no [facility] phone) (no phone) 11-14-2019 Telephone encounter Pain in thoracic spine PATRICIA B RENNAN (no [facility] phone) (no phone) 10-17-2019 Telephone encounter Pain in thoracic spine PATRICIA B RENNAN (no [facility] phone) (no phone) 09-18-2019 Telephone encounter Pain in thoracic spine PATRICIA B RENNAN (no [facility] phone) (no phone) 08-22-2019 Telephone encounter Pain in thoracic spine PATRICIA B RENMADI (no [facility] phone) (no phone) 07-24-2019 Telephone encounter Pain in thoracic spine PATRICIA B RENMADI (no [facility] - phone) (no phone) 07-24-2019 - 07-24-2019 06-28-2019 Telephone encounter Pain in thoracic spine PATRICIA B RENMADI (no [facility] - phone) HARSHAD SALINAS (no phone) 06-28-2019 (no phone) - 06-28-2019 07-05-2018 Telephone encounter no information PATRICIA JARAMILLO ( no [facility] - phone) (no phone) 07-05-2018 - 07-05-2018 07-01-2018 Telephone encounter Pain in thoracic spine PATRICIA B RENMADI (no [facility] - phone) (no phone) 07-01-2018 - 07-01-2018 no information Encounter for general no name no organ ization name adult medical examination without abnormal findings no information Encounter for other no name (no phone) preprocedural examination Medical Equipment No Information Payers Normalized Payer Value Medicare [id number] ([id number]) History general Narrative - Reported Note Type Note Facility History general Narrative - Reported Type Medical sleep apnea History Medical emphysema History Medical heartburn History Medical broken back in two place History Medical broken right shoulder History Medical knee surgery History Surgical x 3 History Surgical gallbladder History Surgical knee surgery- rt knee 06/06/2019 History Hospitaliz surgery ation History [facility] ([id number]) Advance Directives Directive Response Recor ded Date/Time Advance Directives No 6:28am Health Care Power of Hose Builder No 10/21/16 6:28am Organ Donor No 10/21/16 6:28am Resuscitation Status Full Code 10/21/16 6:28am Directive Response Recor ded Date/Time Advance Directives No 11:26am Health Care Power of Hose Builder No 11/03/16 11:26am Organ Donor No 11/03/16 11:26am Resuscitation Status Full Code 11/03/16 11:26am Directive Response Recor ded Date/Time Advance Directives No 6:56am Health Care Power of Hose Builder No 06/07/19 6:56am Organ Donor No 06/07/19 6:56am Resuscitation Status Full Code 06/07/19 6:56am Discharge Instructions No hospital discharge instructions.No hospital discharge instructions.No hospital discharge instructions.No hospital discharge instructions.No hospital discharge instructions.No hospital discharge instruction information available. Summary Purpose ColibriainicalWorks SubmissioneClinicalWorks SubmissioneClinicalWorks SubmissioneClinicalWorks SubmissioneClinicalWorks SubmissioneClinicalWorks SubmissioneClinicalWorks Submission Additional Source Comments This clinical document has been generated using [employer] software that has been certified by the Office of the National Coordinator for Health Information Technology (ONC 15.99.04.3023.Diam.31.00.0.529507) and the National Committee for Sheet Heater (NCQA, as an eMeasure certified technology). FOR [...] BASED ON T HE PRIMARY CLINICAL RECORDS. [employer] provides no warranty or guara ntee of the accuracy or completeness of information in this document.The followi information is based on time limited clinical [...] follow up Pt in for pain managmen t NGZOI MoncaoRKHWF-[id number]-GfsZOP-MigSAMIRR-MigControlled 4/1CCM call
--- OUTSIDE RECORDS SUMMARY | 2020-04-10 15:08 | XMS REPORT | Continuity of Care Document ---
Author Organization Unknown Address Unknown Phone Unavailable Allergies Active Description Code Type Severity Reaction Onset Reported/Identified Relationship to Patient Clinical Status Yes Penicillins Drug Allergy 01/21/2009 Yes Penicillins Drug Allergy N/A N/A 01/21/2009 Yes flu vaccine Drug Allergy 08/24/2011 Yes Penicillins [id number] Drug Aller gy Unknown N/A 10/20/2016 Yes fluticasone [id number] Drug Aller gy Mild HIVES 05/30/2019 Yes Penicillins [id number] Drug Aller gy Mild HIVES 05/30/2019 Yes salmeterol [id number] Drug Allerg y Mild HIVES 05/30/2019 Medications [...] And Abscess Of Unspecified Sites 05/19/2008 CLINT SOCCER BALL ASSEMBLER, PATRICIA S 682.9 Cellulitis And Abscess Of Unspecified Sites 05/19/2008 CLINT SOCCER BALL ASSEMBLER, PATRICIA S 682.9 Cellulitis And Abscess Of Unspecified Sites 05/21/2008 496 COPD 05/21/2008 CLINT SOCCER BALL ASSEMBLER, PATRICIA S 496 COPD 05/21/2008 CLINT SOCCER BALL ASSEMBLER, PATRICIA S 496 COPD 05/21/2008 496 COPD 05/21/2008 496 COPD 05/21/2008 CLINT SOCCER BALL ASSEMBLER, PATRICIA S 496 COPD 05/21/2008 CLINT SOCCER BALL ASSEMBLER, PATRICIA S 496 COPD 05/21/2008 CLINT SOCCER BALL ASSEMBLER, PATRICIA S 496 COPD 05/21/2008 CLINT SOCCER BALL ASSEMBLER, PATRICIA S 496 COPD 05/21/2008 CLINT SOCCER BALL ASSEMBLER, PTARICIA S 496 COPD 05/23/2008 706.2 Seba ceous Cyst 05/23/2008 CLINT SOCCER BALL ASSEMBLER, PATRICIA S 706.2 Sebaceous Cyst 05/23/2008 CLINT SOCCER BALL ASSEMBLER, PATRICIA S 706.2 Sebaceous Cyst 05/23/2008 706.2 Seba ceous Cyst 05/23/2008 706.2 Seba ceous Cyst 05/23/2008 CLINT SOCCER BALL ASSEMBLER, PATRICIA S 706.2 Sebaceous Cyst 05/23/2008 CLINT SOCCER BALL ASSEMBLER, PATRICIA S 706.2 Sebaceous Cyst 05/23/2008 CLINT SOCCER BALL ASSEMBLER, PATRICIA S 706.2 Sebaceous Cyst 05/23/2008 CLINT SOCCER BALL ASSEMBLER, PATRICIA S 706.2 Sebaceous Cyst 05/23/2008 CLINT SOCCER BALL ASSEMBLER, PATRICIA S 706.2 Sebaceous Cyst 05/29/2008 382.9 Unsp ecified Otitis Media 05/29/2008 CLINT PADGETT, PATRICIA S 382.9 Unspecified Otitis Media 05/29/2008 YASMEEN JARAMILLO APRNNDA S 382.9 Unspecified Otitis Media 05/29/2008 382.9 Unsp ecified Otitis Media 05/29/2008 382.9 Unsp ecified Otitis Media 05/29/2008 CLINT SOCCER BALL ASSEMBLER, PATRICIA S 382.9 Unspecified Otitis Media 05/29/2008 CLINT SOCCER BALL ASSEMBLER, PATRICIA S 382.9 Unspecified Otitis Media 05/29/2008 CLINT SOCCER BALL ASSEMBLER, PATRICIA S 382.9 Unspecified Otitis Media 05/29/2008 CLINT SOCCER BALL ASSEMBLER, PATRICIA S 382.9 Unspecified Otitis Media 05/29/2008 CLINT SOCCER BALL ASSEMBLER, PATRICIA S 382.9 Unspecified Otitis Media 07/06/2008 698.9 Prur itus Nos 07/06/2008 CLINT SOCCER BALL ASSEMBLER, PATRICIA S 698.9 Pruritus Nos 07/06/2008 CLINT SOCCER BALL ASSEMBLER, PATRICIA S 698.9 Pruritus Nos 07/06/2008 698.9 Prur itus Nos 07/06/2008 698.9 Prur itus Nos 07/06/2008 CLINT SOCCER BALL ASSEMBLER, PATRICIA S 698.9 Pruritus Nos 07/06/2008 CLINT SOCCER BALL ASSEMBLER, PATRICIA S 698.9 Pruritus Nos 07/06/2008 CLINT SOCCER BALL ASSEMBLER, PATRICIA S 698.9 Pruritus Nos 07/06/2008 CLINT SOCCER BALL ASSEMBLER, PATRICIA S 698.9 Pruritus Nos 07/06/2008 CLINT SOCCER BALL ASSEMBLER, PATRICIA S 698.9 Pruritus Nos 09/13/2008 530.81 GERD 09/13/2008 CLINT SOCCER BALL ASSEMBLER, PATRICIA S 530.81 GERD 09/13/2008 CLINT MARROQUINN, PATRIICA S 530.81 GERD 09/13/2008 530.81 GERD 09/13/2008 530.81 GERD 09/13/2008 CLINT SOCCER BALL ASSEMBLER, PATRICIA S 530.81 GERD 09/13/2008 CLINT SOCCER BALL ASSEMBLER, PATRICIA S 530.81 GERD 09/13/2008 CLINT SOCCER BALL ASSEMBLER, PATRICIA S 530.81 GERD 09/13/2008 CLINT SOCCER BALL ASSEMBLER, PATRICIA S 530.81 GERD 09/13/2008 CLINT SOCCER BALL ASSEMBLER, PATRICIA S 530.81 GERD 10/16/2009 466.0 ACUT E BRONCHITIS 10/16/2009 CLINT MARROQUINN PATRICIA S 466.0 ACUTE BRONCHITIS 10/16/2009 CLINT PADGETT, PATRICIA S 466.0 ACUTE BRONCHITIS 10/16/2009 466.0 ACUT E BRONCHITIS 10/16/2009 466.0 ACUT E BRONCHITIS 10/16/2009 CLINT SOCCER BALL ASSEMBLER, PATRICIA S 466.0 ACUTE BRONCHITIS 10/16/2009 CLINT SOCCER BALL ASSEMBLER, PATRICIA S 466.0 ACUTE BRONCHITIS 10/16/2009 CLINT SOCCER BALL ASSEMBLER, PATRICIA S 466.0 ACUTE BRONCHITIS 10/16/2009 CLINT SOCCER BALL ASSEMBLER, PATRICIA S 466.0 ACUTE BRONCHITIS 10/16/2009 CLINT SOCCER BALL ASSEMBLER, PATRICIA S 466.0 ACUTE BRONCHITIS 08/02/2010 Ot 805.4 08/02/2010 Ot 959.19 08/02/2010 Ot E000.8 08/02/2010 Ot E849.0 08/02/2010 Ot E880.9 08/28/2010 724.2 LUMBAGO 08/28/2010 CLINT PADGETT PATRICIA S 724.2 LUMBAGO 08/28/2010 CLINT PADGETT PATRICIA S 724.2 LUMBAGO 08/28/2010 724.2 LUMBAGO 08/28/2010 724.2 LUMBAGO 08/28/2010 CLINT PADGETT PATRICIA S 724.2 LUMBAGO 08/28/2010 CLINT SOCCER BALL ASSEMBLER, PATRICIA S 724.2 LUMBAGO 08/28/2010 CLINT SOCCER BALL ASSEMBLER PATRICIA S 724.2 LUMBAGO 08/28/2010 CLINT SOCCER BALL ASSEMBLER, PATRICIA S 724.2 LUMBAGO 08/28/2010 CLINT SOCCER BALL ASSEMBLER, PATRICIA S 724.2 LUMBAGO 08/20/2011 V04.81 FLU DX (MEDICARE ONLY) 08/20/2011 YASMEEN JARAMILLO APRNNDA S V04.81 FLU DX (MEDICARE ONLY) 08/20/2011 GUS JARAMILLO APRNA S V04.81 FLU DX (MEDICARE ONLY) 08/20/2011 V04.81 FLU DX (MEDICARE ONLY) 08/20/2011 V04.81 FLU DX (MEDICARE ONLY) 08/20/2011 GUS JARAMLILO APRNA S V04.81 FLU DX (MEDICARE ONLY) 08/20/2011 CLINT SOCCER BALL ASSEMBLER, PATRICIA S V04.81 FLU DX (MEDICARE ONLY) 08/20/2011 CLINT SOCCER BALL ASSEMBLER, PATRICIA S V04.81 FLU DX (MEDICARE ONLY) 08/20/2011 CLINT SOCCER BALL ASSEMBLER, PATRICIA S V04.81 FLU DX (MEDICARE ONLY) 08/20/2011 CLINT SOCCER BALL ASSEMBLER, PATRICIA S V04.81 FLU DX (MEDICARE ONLY) 04/06/2013 V76.12 EVONNE MOGRAM SCREENING 04/06/2013 CLINT SOCCER BALL ASSEMBLER, PATRICIA S V76.12 MAMMOGRAM SCREENING 04/06/2013 CLINT SOCCER BALL ASSEMBLER, PATRICIA S V76.12 MAMMOGRAM SCREENING 04/06/2013 CLINT SOCCER BALL ASSEMBLER, PATRICIA S V76.12 MAMMOGRAM SCREENING 04/06/2013 CLINT SOCCER BALL ASSEMBLER, PATRICIA S V76.12 MAMMOGRAM SCREENING 04/06/2013 CLINT SOCCER BALL ASSEMBLER, PATRICIA S V76.12 MAMMOGRAM SCREENING 11/30/2013 CLINT SOCCER BALL ASSEMBLER, PATRICIA S 786.2 COUGH 11/30/2013 CLINT SOCCER BALL ASSEMBLER, PATRICIA S 786.2 COUGH 11/30/2013 CLINT SOCCER BALL ASSEMBLER, PATRICIA S 786.2 COUGH 11/30/2013 CLINT SOCCER BALL ASSEMBLER, PATRICIA S 786.2 COUGH 10/16/2014 CLINT SOCCER BALL ASSEMBLER, PATRICIA S 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, UNSPECIFIED, IN REM 03/23/2016 Ot J44.9 MOLDED FRAMES ASSEMBLER SALVATORE OBSTRUCTIVE PULMONARY DISEASE, U 03/23/2016 Ot R06.02 OSIRIS RTNESS OF BREATH 03/23/2016 MARY ALCANTARA SOCCER BALL ASSEMBLER Ot M25.511 PAIN IN RIGHT SHOULDER 03/23/2016 Ot 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, UNSPECIFIED, IN REM 03/23/2016 Ot J44.9 MOLDED FRAMES ASSEMBLER SALVATORE OBSTRUCTIVE PULMONARY DISEASE, U 03/23/2016 Ot [...] DEPENDENCE, UNSPECIFIED, IN REM 10/02/2016 Ot J44.9 MOLDED FRAMES ASSEMBLER SALVATORE OBSTRUCTIVE PULMONARY DISEASE, U 10/02/2016 Ot [...] DEPENDENCE, UNSPECIFIED, IN REM 11/13/2016 Ot J44.9 MOLDED FRAMES ASSEMBLER SALVATORE OBSTRUCTIVE PULMONARY DISEASE, U 11/13/2016 Ot [...] DEPENDENCE, UNSPECIFIED, IN REM 04/15/2017 Ot J44.9 MOLDED FRAMES ASSEMBLER SALVATORE OBSTRUCTIVE PULMONARY DISEASE, U 04/15/2017 Ot R06.02 OSIRIS RTNESS OF BREATH 04/15/2017 MARY ALCANTARA SOCCER BALL ASSEMBLER Ot M25.511 PAIN IN RIGHT SHOULDER 04/15/2017 PATRICIA JARAMILLO Ot M25.511 PAIN IN RIGHT SHOULDER 04/15/2017 LEANDRO NELSON DO Ot G47. 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 9 CHRONIC OBSTRUCTIVE PULMONARY DISEASE, U 04/15/2017 LEANDRO NELSON DO Ot R06. 02 SHORTNESS OF BREATH 04/15/2017 LEANDRO ENLSON DO Ot Z01.818 ENCOUNTER FOR OTHER PREPROCEDURAL [...] FOR MALIGNANT NEOPLASM OF 03/21/2018 KEAGAN CARTAGENA SOCCER BALL ASSEMBLER Ot Z12.2 ENCNTR SCREEN FOR MALIGNANT NEOPLASM [...] DEPENDENCE, UNSPECIFIED, IN REM 04/15/2018 Ot J44.9 MOLDED FRAMES ASSEMBLER SALVATORE OBSTRUCTIVE PULMONARY DISEASE, U 04/15/2018 Ot [...] 02 SHORTNESS OF BREATH 04/15/2018 KEAGAN CARTAGENA SOCCER BALL ASSEMBLER Ot Z12.2 ENCNTR SCREEN FOR MALIGNANT NEOPLASM OF 04/15/2018 KEAGAN CARTAGENA SOCCER BALL ASSEMBLER Ot Z12.2 ENCNTR SCREEN FOR MALIGNANT NEOPLASM OF 04/21/2018 KEAGAN CRATAGENA SOCCER BALL ASSEMBLER Ot Z12.2 ENCNTR SCREEN FOR MALIGNANT NEOPLASM OF 04/21/2018 KEAGAN CARTAGENA SOCCER BALL ASSEMBLER Ot Z87.891 PERSONAL HISTORY OF NICOTINE DEPENDENCE 04/21/2018 KEAGAN CARTAGENA SOCCER BALL ASSEMBLER Ot Z12.2 ENCNTR SCREEN FOR MALIGNANT NEOPLASM OF 04/21/2018 KEAGAN CARTAGENA SOCCER BALL ASSEMBLER Ot Z87.891 PERSONAL HISTORY OF NICOTINE DEPENDENCE 05/11/2018 KEAGAN CARTAGENA SOCCER BALL ASSEMBLER Ot Z12.2 ENCNTR SCREEN FOR MALIGNANT NEOPLASM OF 05/11/2018 KEAGAN CARTAGENA SOCCER BALL ASSEMBLER Ot Z87.891 PERSONAL HISTORY OF NICOTINE DEPENDENCE [...] DEPENDENCE, UNSPECIFIED, IN REM 04/04/2019 Ot J44.9 MOLDED FRAMES ASSEMBLER SALVATORE OBSTRUCTIVE PULMONARY DISEASE, U 04/04/2019 Ot R06.02 OSIRIS RTNESS OF BREATH 04/04/2019 MARY ALCANTARA SOCCER BALL ASSEMBLER Ot M25.511 PAIN IN RIGHT SHOULDER 04/04/2019 [...] DEPENDENCE, UNSPECIFIED, IN REM 04/11/2019 Ot J44.9 MOLDED FRAMES ASSEMBLER SALVATORE OBSTRUCTIVE PULMONARY DISEASE, U 04/11/2019 Ot R06.02 OISRIS RTNESS OF BREATH 04/11/2019 MARY ALCANTARA APRN [...] 02 SHORTNESS OF BREATH 04/11/2019 KEAGAN CARTAGENA SOCCER BALL ASSEMBLER Ot Z12.2 ENCNTR SCREEN FOR MALIGNANT NEOPLASM OF 04/11/2019 KEAGAN CARTAGENA SOCCER BALL ASSEMBLER Ot Z87.891 PERSONAL HISTORY OF NICOTINE DEPENDENCE 04/12/2019 CLINTPATRICIA REYNOLDS SUPERVISOR IN CHARGE Ot M23.203 DERANG OF UNSP MEDIAL MENISCUS DUE TO OL 04/12/2019 CLINTPATRICIA REYNOLDS SUPERVISOR IN CHARGE Ot M94.8X8 OTHER SPECIFIED DISORDERS OF [place], 04/14/2019 KEAGAN CARTAGENA SOCCER BALL ASSEMBLER Ot Z87.891 PERSONAL HISTORY OF NICOTINE DEPENDENCE 04/17/2019 PATRICIA JARAMILLO SUPERVISOR IN CHARGE Ot M23.203 DERANG OF UNSP MEDIAL MENISCUS DUE TO OL 04/17/2019 CLINTPATRICIA REYNOLDS SUPERVISOR IN CHARGE Ot M94.8X8 OTHER SPECIFIED DISORDERS OF [place], 04/21/2019 KEAGAN CARTAGENA SOCCER BALL ASSEMBLER Ot Z87.891 PERSONAL HISTORY OF NICOTINE DEPENDENCE 04/25/2019 KEAGAN CARTAGENA SOCCER BALL ASSEMBLER Ot Z87.891 PERSONAL HISTORY OF NICOTINE DEPENDENCE 04/30/2019 KEAGAN CARTAGENA SOCCER BALL ASSEMBLER Ot I25.10 ATHSCL HEART DISEASE OF [place] CORONARY 04/30/2019 KEAGAN CARTAGENA SOCCER BALL ASSEMBLER Ot J44.9 CHRONIC OBSTRUCTIVE PULMONARY DISEASE, U 04/30/2019 KEAGAN CARTAGENA SOCCER BALL ASSEMBLER Ot K44.9 DIAPHRAGMATIC HERNIA WITHOUT OBSTRUCTION 04/30/2019 KEAGAN CARTAGENA SOCCER BALL ASSEMBLER Ot Z12.2 ENCNTR SCREEN FOR MALIGNANT NEOPLASM OF 04/30/2019 KEAGAN CARTAGENA SOCCER BALL ASSEMBLER Ot Z87.891 PERSONAL HISTORY OF NICOTINE DEPENDENCE 05/02/2019 KEAGAN CARTAGENA SOCCER BALL ASSEMBLER Ot I25.10 ATHSCL HEART DISEASE OF [place] CORONARY 05/02/2019 KEAGAN CARTAGENA SOCCER BALL ASSEMBLER Ot J44.9 CHRONIC OBSTRUCTIVE PULMONARY DISEASE, U 05/02/2019 KEAGAN CARTAGENA SOCCER BALL ASSEMBLER Ot K44.9 DIAPHRAGMATIC HERNIA WITHOUT OBSTRUCTION 05/02/2019 KEAGAN CARTAGENA APRN Ot Z12.2 ENCNTR SCREEN FOR MALIGNANT NEOPLASM OF 05/02/2019 KEAGAN CARTAGENA APRN Ot Z87.891 PERSONAL HISTORY OF NICOTINE DEPENDENCE 05/04/2019 CLINT PATRICIA COULTER Ot M23.203 DERANG OF UNSP MEDIAL MENISCUS DUE TO OL 05/04/2019 CLINT PATRICIA NAYLORP Ot M94.8X8 OTHER SPECIFIED DISORDERS OF [place], 05/05/2019 PATRICIA JARAMILLO SUPERVISOR IN CHARGE Ot M23.203 DERANG OF UNSP MEDIAL MENISCUS DUE TO OL 05/05/2019 CLINT PATRICIA NAYLORP Ot M94.8X8 OTHER SPECIFIED DISORDERS OF [place], 05/22/2019 KEAGAN CARTAGENA APRN Ot I25.10 ATHSCL HEART DISEASE OF [place] CORONARY 05/22/2019 KEAGAN CARTAGENA APRN Ot J44.9 [...] DEPENDENCE, UNSPECIFIED, IN REM 05/30/2019 Ot J44.9 MOLDED FRAMES ASSEMBLER SALVATORE OBSTRUCTIVE PULMONARY DISEASE, U 05/30/2019 Ot [...] APRN Ot I25.10 ATHSCL HEART DISEASE OF [place] CORONARY 05/30/2019 KEAGAN CARTAGENA APRN Ot J44.9 [...] LEANDRO NELSON DO Ot 799. 02 05/30/2019 MARILEE EDWARD MD Ot Z01.818 ENCOUNTER FOR [...] 06/07/2019 MARILEE EDWARD MD, Ot Z79.899 OTHER LONGTERM (CURRENT) DRUG THERAPY 06/07/2019 MARILEE EDWARD MD, [...] 06/18/2019 MARILEE EDWARD MD, Ot Z79.899 OTHER LONGTERM (CURRENT) DRUG THERAPY 06/18/2019 MARILEE EDWARD MD, [...] Z87.891 PERSONAL HISTORY OF NICOTINE DEPENDENCE 04/03/2020 LEANRDO NELSON DO Ot 278. 00 OBESITY, NOS [...] DEPENDENCE, UNSPECIFIED, IN REM 04/03/2020 Ot J44.9 MOLDED FRAMES ASSEMBLER SALVATORE OBSTRUCTIVE PULMONARY DISEASE, U 04/03/2020 Ot R06.02 OSIRIS RTNESS OF BREATH 04/03/2020 MARY ALCANTARA APRN Ot M25.511 PAIN IN RIGHT SHOULDER 04/03/2020 PATRICIA JARAMILLO SUPERVISOR IN CHARGE Ot M25.511 PAIN IN RIGHT SHOULDER 04/03/2020 LEANDRO NELSON DO Ot G47. 33 OBSTRUCTIVE SLEEP APNEA (ADULT) (PEDIATR 04/03/2020 LEANDRO NELSON DO Ot G47. 34 IDIO [...] IDIO SLEEP RELATED NONOBSTRUCTIVE ALVEOL 04/03/2020 LESLIE SHAHLENADRO Ot J44. 9 CHRONIC OBSTRUCTIVE PULMONARY DISEASE, U 04/03/2020 LESLIE SHAHLEANDRO Ot R06. 02 SHORTNESS OF BREATH 04/03/2020 KEAGAN CARTAGENA APRN Ot Z12.2 ENCNTR SCREEN FOR MALIGNANT NEOPLASM OF 04/03/2020 KEAGAN CARTAGENA APRN Ot Z87.891 PERSONAL HISTORY OF NICOTINE DEPENDENCE 04/03/2020 KEAGAN CARTAGENA APRN Ot I25.10 ATHSCL HEART DISEASE OF [place] CORONARY 04/03/2020 KEAGAN CARTAGENA APRN Ot J44.9 [...] FOR OTHER PREPROCEDURAL EXAMIN 04/05/2020 MARILIN SHAH ALEXA B Ot Z11.5 9 ENCOUNTER FOR SCREENING [...] DEPENDENCE, UNSPECIFIED, IN REM 04/10/2020 Ot J44.9 MOLDED FRAMES ASSEMBLER SALVATORE OBSTRUCTIVE PULMONARY DISEASE, U 04/10/2020 Ot R06.02 OSIRIS RTNESS OF BREATH 04/10/2020 MARY ALCANTARA SOCCER BALL ASSEMBLER Ot M25.511 PAIN IN RIGHT SHOULDER 04/10/2020 PATRICIA JARAMILLO SUPERVISOR IN CHARGE Ot M25.511 PAIN IN RIGHT SHOULDER 04/10/2020 [...] 02 SHORTNESS OF BREATH 04/10/2020 KEAGAN CARTAGENA SOCCER BALL ASSEMBLER Ot Z12.2 ENCNTR SCREEN FOR MALIGNANT NEOPLASM OF 04/10/2020 KEAGAN CARTAGENA APRN Ot Z87.891 PERSONAL HISTORY OF NICOTINE DEPENDENCE 04/10/2020 KEAGAN CARTAGENA SOCCER BALL ASSEMBLER Ot I25.10 ATHSCL HEART DISEASE OF [place] CORONARY 04/10/2020 KEAGAN CARTAGENA SOCCER BALL ASSEMBLER Ot J44.9 CHRONIC OBSTRUCTIVE PULMONARY DISEASE, U 04/10/2020 KEAGAN CARTAGENA SOCCER BALL ASSEMBLER Ot K44.9 DIAPHRAGMATIC HERNIA WITHOUT OBSTRUCTION 04/10/2020 KEAGAN CARTAGENA SOCCER BALL ASSEMBLER Ot Z12.2 ENCNTR SCREEN FOR MALIGNANT NEOPLASM OF 04/10/2020 KEAGAN CARTAGENA APRN Ot Z87.891 PERSONAL HISTORY OF NICOTINE DEPENDENCE 04/10/2020 PATRICIA JARAMILLO Ot M23.203 DERANG OF UNSP MEDIAL MENISCUS DUE TO OL 04/10/2020 PATRICIA JARAMILLOP Ot M94.8X8 OTHER SPECIFIED DISORDERS OF [place], 04/10/2020 KEAGAN CARTAGENA APRN Ot Z87.891 PERSONAL HISTORY OF NICOTINE DEPENDENCE Procedures Code Description [place] [address] ROUT INE VENIPUNCTURE 01/05/2013 85839 CBC 01/05/2013 92490 CMP 01/05/2013 61986 LIPI D PANEL 01/05/2013 7533859 GF R CALC (RESULT ONLY) 01/05/2013 91242 MAMM OGRAM, SCREENING 04/10/2013 33908 MAMM OGRAM DX, LEFT 04/11/2013 G0008 FLU ADMINISTRATION (MEDICARE ONLY) 08/16/2013 12451 INFL UENZA A & B (IN-HOUSE) 11/30/2013 J2930 SOLU MEDROL INJ 11/30/2013 81744 THER APUTIC INJ SQ/IM 11/30/2013 86169 OXIMETRY 11/30/2013 27447 ROUT INE VENIPUNCTURE 03/14/2014 12542 CBC 03/14/2014 8334717 GF R CALC (RESULT ONLY) 03/14/2014 56419 CMP 03/14/2014 19691 LIPI D PANEL 03/14/2014 63220 TSH 03/14/2014 06008 OXIMETRY 10/16/2014 04839 OXIMETRY 12/04/2014 Results Test Result Range Complete [...] 7-25 CREATININE 0.86 mg/dL 0.60-0.93 eGFR NON-AFR. SOMALI 68 mL/min/1.73m2 > OR = 60 eGFR [...] Status Pt. Type Provider Facility Loc./Unit Complaint [id number] 11/29/2014 16:21:00 11/29/2014 23:59: 59 CLS Outpatient PATRICIA JARAMILLO APRN S [id number] 10/16/2014 14:41:00 10/16/2014 23:59: 59 CLS Outpatient PATRICIA JARAMILLO APRN S [id number] 03/14/2014 08:01:00 03/14/2014 23:59: 59 CLS Outpatient PATRICIA JARAMILLO APRN S [id number] 11/30/2013 16:44:00 11/30/2013 23:59: 59 CLS Outpatient PATRICIA JARAMILLO APRN S [id number] 08/16/2013 15:20:00 08/16/2013 23:59: 59 CLS Outpatient PATRICIA JARAMILLO APRN S [id number] 01/05/2013 09:38:00 01/05/2013 23:59: 59 CLS Outpatient GUS JARAMILLO APRNA S [id number] 10/15/2011 16:33:00 10/15/2011 23:59:5 9 CLS Outpatient [id number] 10/15/2011 16:33:00 10/15/2011 23:59: 59 CLS Outpatient GUS JARAMILLO APRNA S [id number] 04/06/2013 16:26:00 Document Registration [id number] 01/05/2013 09:38:00 Document Registration [id number] 04/05/2020 09:11:00 020 14:48:00 DIS Outpatient ALEXA GASTON DO [facility] PREOP VENTRAL/INCISIONAL [place] [id number] 06/07/2019 06:32:00 019 12:05:00 DIS Outpatient MARILEE EDWARD MD [facility] SDC RIGHT KNEE MEDIAL MENI SCUS TEAR [id number] 05/30/2019 11:16:00 12:50:00 DIS Outpatient MARILEE EDWARD MD [facility] PREOP RIGHT KNEE MEDIAL MENI SCUS TEAR [id number] 05/12/2019 14:20:00 23:59:59 CLS Preadmit KEAGAN CARTAGENA APRN [facility] RAD HX OF NICOTINE DEP [id number] 04/25/2019 14:48:00 23:59:59 CLS Preadmit PATRICIA JARAMILLO [facility] REHAB R MEDIAL KNEE PAIN [id number] 04/25/2019 10:50:00 23:59:59 CLS Outpatient KEAGAN CARTAGENA APRN [facility] RAD COPD [id number] 04/11/2019 09:06:00 019 23:59:59 CLS Outpatient PATRICIA JARAMILLO [facility] RAD RIGHT MEDIAL KNEE PAIN [id number] 04/20/2018 09:45:00 018 23:59:59 CLS Outpatient KEAGAN CARTAGENA APRN [facility] RAD SCREENING [id number] 04/15/2017 13:15:00 017 23:59:59 CLS Outpatient LEANDRO NELSON DO [facility] RAD COPD,BENNIE ON CPAP,SOB DY SPNEA [id number] 11/24/2016 07:38:00 017 09:09:00 DIS Emergency SATHISH MURPHY MD [facility] ER VOMITING [id number] 11/05/2016 07:45:00 016 18:00:00 DIS Outpatient STEVEN FALCON MD Via [facility] GALLSTONES [id number] 11/03/2016 11:16:00 11:38:00 DIS Outpatient STEVEN FALCON MD [facility] PREOP GALLSTONES [id number] 10/28/2016 09:10:00 016 23:59:59 CLS Outpatient LEANDRO NELSON DO [facility] RAD SOB,COPD [id number] 10/21/2016 05:48:00 016 08:45:00 DIS Outpatient LEANDRO NELSON DO [facility] SDC BRONCHIAL LESION [id number] 10/20/2016 08:45:00 016 23:59:59 CLS Outpatient LEANDRO NELSON DO [facility] PREOP BRONCHIAL LESION [id number] 10/02/2016 00:28:00 03:28:00 DIS Emergency VIET THOMAS DO [facility] ER SOB [id number] 03/02/2016 09:46:00 23:59:59 CLS Outpatient PATRICIA JARAMILLO [facility] RAD SHOULDER PAIN [id number] 02/22/2016 09:06:00 23:59:59 CLS Outpatient MARY ALCANTARA APRN [facility] RAD R SHOULDER X-RA Y [id number] 08/15/2015 15:00:00 23:59:59 CLS Preadmit LEANDRO NELSON DO [facility] PULM COPD [id number] 07/25/2015 08:00:00 015 00:01:00 DIS Outpatient LEANDRO NELSON DO [facility] PULM COPD [id number] 07/04/2015 08:00:00 015 00:01:00 DIS Outpatient LEANDRO NELSON DO [facility] PULM COPD [id number] 02/14/2015 19:30:00 06:35:00 DIS Outpatient LEANDRO NELSON DO [facility] SLEEP NOCTURNAL HYPOXIA [id number] 12/26/2014 09:41:00 23:59:59 CLS Outpatient LEANDRO NELSON DO [facility] RT COPD [id number] 05/08/2013 13:53:00 23:59:59 CLS Outpatient PATRICIA JARAMILLO [facility] RAD ABN MAMMO [id number] 04/12/2013 15:29:00 23:59:59 CLS Outpatient PATRICIA JARAMILLO [facility] RAD SCREENING [id number] 04/26/2020 09:15:00 P EN Preadmit KEAGAN CARTAGENA APRN [facility] RAD LUNG SCREENING [id number] 04/24/2020 08:30:00 P EN Preadmit KEAGAN CARTAGENA [employer] [facility] RT COPD [id number] 04/10/2020 11:44:[address] Inpatient ALEXA GASTON DO [facility] 4TH SMALL BOWEL RESECTION [id number] 02/13/2016 12:31:00 Document Registration [id number] 08/02/2010 09:44:00 Document Registration [id number] 03/18/2020 09:40:00 03/18/2020 23:59:5 9 CLS Outpatient PATRICIA JARAMILLO APRN [facility] [id number] 11/29/2019 13:20:00 Document Registration [id number] 07/13/2018 09:20:00 Document Registration [id number] 01/17/2018 10:00:00 Document Registration
[2020-04-10] MEDS: LACTATED RINGERS 1,000 ML IV SCH ×2 (15:42→20:15)
[2020-04-10] MEDS: CLINDAMYCIN 900 MG/50 ML IVPB 50 ML IV SCH (16:51)
--- NOTE | 2020-04-10 19:19 | OPERATIVE REPORT ---
DATE OF SERVICE: 04/10/2020 PREOPERATIVE DIAGNOSIS: Incarcerated ventral incisional hernia. POSTOPERATIVE DIAGNOSES: 1. Incarcerated ventral incisional hernia. 2. Questionable compromised small bowel. PROCEDURES: 1. Small bowel resection. 2. Laparoscopic ventral incisional herniorrhaphy with mesh placement. SURGEON: Alexa Witt DO PUBLIC RELATIONS PROFESSIONAL: Neal Del Angel DO. ANESTHESIA: General endotracheal tube. SPECIMEN: 1. Portion of small bowel. 2. Hernia contents. BLOOD LOSS: Approximately 50 mL. FLUIDS: Per anesthesia. POSTOPERATIVE CONDITION: Stable. INDICATION FOR PROCEDURE: The patient is a 74-year-old female who had pain and diagnosed with incarcerated incisional ventral hernia, needed to get this repaired. FINDINGS: The patient had intestine stuck in the fascial defect and it was slightly compromised. Mesentery was a little bit torn up and because of being in the hernia sac and noted an area of intestine that looked odd and we would like to resect this with the specimen. PROCEDURE NOTE: After informed consent was obtained, the patient was brought to the operating room, placed on the operating table in supine position. She was sterilely prepped and draped in normal fashion. Local lidocaine was used to infiltrate the skin in left upper quadrant, made an incision with #11 blade, carried down through the skin into subcutaneous tissue, deepened down to subcutaneous tissue with Bovie electrocautery down to the fascia. Fascia was incised with Bovie electrocautery, bluntly swept the muscle aside, went to the posterior fascia and then bluntly entered the abdomen, placed 11 mm trocar port under direct visualization. Created pneumoperitoneum and then placed 2 more ports in normal fashion using local lidocaine, 11 blade for stab incision and VersaStep system, all done under direct visualization, one in the left lower quadrant, one in the right mid abdomen. Upon entry, noted a large hernia defect with intestine and omentum stuck in there. Carefully started taking this down. There was a lot of intestine stuck in the fascial defect. Carefully taking this down with a sharp dissection with scissors as well as with some blunt dissection. Used the Kittner pusher pulling this out and using some cautery. The bowel looked like it may have been compromised because of being in this fascial defect, so I elected to open. I made a small midline incision right above this fascial defect with a #11 blade, carried down through the skin into subcutaneous tissue, then deepened down to subcutaneous tissue with Bovie electrocautery, had previously grasped the piece of intestine with a Rajani and then once we had this incision open, pulled the intestine through. The intestine looked slightly compromised, did not appear to be any holes, but the mesentery was also torn up, looked a little bit ratty and there was a piece of intestine that had almost like a lump in it and looked odd, so we elected to do a small bowel resection to remove this area of intestine removing about 10 inches of small bowel, made a defect in the mesentery under both portions of small bowel, superior and inferior and then made a small incision on the intestine on the antimesenteric side of the Bovie electrocautery, placed a JOSELITO-75 in either limb of the intestine and held it together, clamped and fired thereby creating a [id number] anastomosis and then used another JOSELITO reload to close this intestine and cut it off as well to take this in 2 steps and then used the LigaSure to come across the mesentery. There was a little bit of bleeding from the mesentery. This was then controlled with 3-0 Vicryl pop-offs, placed a 3-0 Vicryl pop-off at the crotch suture and then pushed this intestine back in. At this point, then placed a Phasix mesh into the abdomen with a 3-0 pop-off Vicryl to hold this up and then closed the fascial defect with #1 double stranded PDS suture from the inferior portion running to the superior portion tying to itself and then held the Vicryl up to hold the mesh up on the abdominal wall. We then went back to the laparoscopic portion and created pneumoperitoneum and brought the insufflation down to only 8 mm and then used a secure strap to tack around at the 3 o'clock, 6 o'clock, 9 o'clock and 12 o'clock position and then in between at 0.5 to 1 cm intervals with the secure strap and then do an inner crown to hold the mesh in place. Mesh looked very good. Picture was taken. Looked at the intestine. There was no bleeding. Everything looked good and at this point, then allowed the pneumoperitoneum to escape, closed left upper quadrant incision, closing the posterior fascia with 3-0 Vicryl [id number]-ac-zxafi suture, then closed the fascia with 0 Vicryl [id number]-[id number] suture. Copiously irrigated all incisions with normal saline and closed all incisions with jackson. Area was cleaned and dried, dressing was placed. The patient tolerated the procedure. Sponge, instrument and needle count correct at the end of the case. Dr. Del Angel assisted in this case helping to make incisions, closed incisions as well as identify anatomy, hold anatomy out of the way. Job ID: [id number] DocumentID: [id number] Dictated Date: 04/10/2020 11:53:36 Label Sewer Date: 04/10/2020 19:17:47 Dictated By: ALEXA WITT DO
[2020-04-11 00:15] VITALS: BP 111/71
[2020-04-11] MEDS: CLINDAMYCIN 900 MG/50 ML IVPB 50 ML IV SCH (00:58)
[2020-04-11] MEDS: LACTATED RINGERS 1,000 ML IV SCH ×2 (03:44→08:59)
[2020-04-11] MEDS: ACETAMINOPHEN 500 MG TAB (TYLENOL) PO SCH (03:45)
[2020-04-11 04:00] VITALS: BP 137/84
--- NOTE | 2020-04-11 05:30 | NUR ---
PT IS TOLERATING LIQUIDS WELL. STOPPED FLUIDS AND PT IS CURRENTLY SALINE LOCKED PER ORDERS TO SALINE LOCK WHEN TOLERATING PO FLUIDS. ADVANCED PT TO REGULAR DIET.
[2020-04-11] MEDS: KETOROLAC 30 MG/ML VIAL IVP SCH (06:00)
[2020-04-11 08:00] VITALS: BP 112/71
[2020-04-11] MEDS ORDERED: PANTOPRAZOLE 40 MG (PROTONIX) VIAL IVP SCH (09:00)
--- NOTE | 2020-04-11 11:10 | Progress Note - Surgery ---
Subjective Time Seen by a Provider: 10:56 Subjective/Events-last exam Pt seen and examined, states pain controlled and wants to go home. Review of Systems General: No Chills, No Night Sweats Pulmonary: No Dyspnea Cardiovascular: No: Chest Pain, Palpitations Gastrointestinal: No: Nausea, Vomiting, Abdominal Pain Objective Exam Vital Signs Date Time Temp Pulse Resp B/P (MAP) Pulse Ox O2 Delivery O2 Flow Rate FiO2 04/11/20 09:00 Room Air 04/11/20 08:00 36.5 89 20 112/71 (85) 91 Room Air 04/11/20 04:00 36.2 70 20 137/84 (101) 95 Nasal Cannula 3.00 04/11/20 00:15 36.2 82 22 111/71 (84) 94 Nasal Cannula 3.00 04/10/20 21:00 Nasal Cannula 3.00 04/10/20 19:07 37.2 88 18 137/75 (95) 95 Nasal Cannula 3.00 04/10/20 16:22 Nasal Cannula 3.00 04/10/20 15:16 36.7 83 18 118/70 (86) 97 Room Air 3.00 04/10/20 14:20 Nasal Cannula 3.00 04/10/20 12:50 36.0 70 22 136/62 (86) 95 Room Air 3.00 04/10/20 12:45 36.6 18 154/72 (99) 93 Nasal Cannula 3 04/10/20 12:45 Nasal Cannula 3 04/10/20 12:40 18 106/66 (79) 95 Nasal Cannula 3 04/10/20 12:40 OxyMask 6 04/10/20 12:25 18 124/59 (80) 96 OxyMask 6 04/10/20 12:25 OxyMask 6 04/10/20 12:10 20 132/67 (88) 98 OxyMask 12 04/10/20 12:10 OxyMask 6 04/10/20 11:55 20 136/67 (90) 97 OxyMask 12 04/10/20 11:55 OxyMask 12 04/10/20 11:41 36.6 20 151/77 (101) 98 OxyMask 12 04/10/20 11:41 OxyMask 12 I & O 04/11/20 07:00 Intake Total 3500 ml Balance 3500 ml Capillary Refill : Less Than 3 Seconds General Appearance: No Apparent Distress, Obese Respiratory: Chest Non Tender, Lungs Clear, Normal Breath Sounds Cardiovascular: Regular Rate, Rhythm, No Murmur Gastrointestinal: soft; No distended; tenderness (very minimal at incision) Results Lab Laboratory Tests 04/10/20 14:00: Creatinine 0.77 Microbiology 04/10/20 MRSA Screen - Final, Complete MRSA not isolated Assessment/Plan Assessment/Plan Assessment/Plan S/P SBR and Ventral/Incisional hernia repair D/C IV and D/C home Clinical Quality Measures DVT/VTE Risk/Contraindication: Risk Factor Score Per Nursin RFS Level Per Nursing on Admit: 3=High ALEXA GASTON DO April 11, 2020 11:10
[2020-04-11] MEDS ORDERED: KETO10TA PO (11:11)
[2020-04-11 11:45] VITALS: BP 112/71
--- NOTE | 2020-04-11 12:23 | Anesthesia-General Post-Op ---
General Patient Condition Mental Status/LOC: Same as Preop Cardiovascular: Satisfactory Nausea/Vomiting: Absent Respiratory: Satisfactory Pain: Controlled Complications: Absent Post Op Complications Complications None Follow Up Care/Instructions Patient Instructions None needed. Anesthesia/Patient Condition Patient Condition Patient is doing well, no complaints, stable vital signs, no apparent adverse anesthesia problems. No complications reported per nursing. STEPHANY PINEDO CRNA April 11, 2020 12:23
--- NOTE | 2020-04-11 12:36 | NUR ---
"RD ASSESSMENT PMHx: emphysema; GERD: chronic diarrhea; s/p small bowel resection PT INTERACTION: Pt was awake and pleasant during nutrition assessment. Pt states current appetite is good. Note PO intake 50% x1meal, per chart review. Pt states following a regular diet at home, and has no issues with chewing/swallowing food. Pt states no recent issues with nausea, vomiting, constipation, or diarrhea, and that her last BM was 04/10. Pt states no recent wt changes. Note unable to determine recent wt hx, per chart review. ABNORMAL NUTRITION-RELATED LAB VALUES Labs WNL Est. kcal needs: 7902-4112 kcal | 15-18 kcal/kg Est. Pro needs: 97-121 g Pro | 0.8-1.0 g Pro/kg PES STATEMENT: Inadequate oral intake (NI-2.1) related to loss of appetite as evidenced by PO intake 50% x1meal INTERVENTION: Continue with current diet order of Regular diet. Encouraged pt to eat when able. Will continue to follow and reassess as pt needs, intake, and status change. MONITOR/EVALUATE: PO Intake; Plan of Care; Hydration Status; Weight Status; Lab Values Babak Vázquez, MS, RD, LD"
[2020-04-11] MEDS ORDERED: ENOXAPARIN 40 MG/0.4 ML (LOVENOX) SYR SC SCH (14:31)
== END 2020-04-11 11:45 | disposition home or self-care (01) | DRG 330 ==
LOC: SDC 08:29 → 4TH 11:44
PROVIDERS: ADMIT Surgery; ATTEND Surgery
PROC: 0DB80ZZ Excision of Small Intestine, Open Approach (ICD-10-PCS; 2020-04-10)
PROC: 0WUF4JZ Supplement Abdominal Wall with Synthetic Substitute, Percutaneous Endoscopic Approach (ICD-10-PCS; principal; 2020-04-10 09:26)
DX: K43.0 Incisional hernia with obstruction, without gangrene (principal); J44.9 Chronic obstructive pulmonary disease, unspecified; E66.9 Obesity, unspecified; Z68.41 Body mass index [BMI] 40.0-44.9, adult; G47.33 Obstructive sleep apnea (adult) (pediatric)
CPT/HCPCS: 36415; 82565; 85025; 87081; 94664

== ENCOUNTER → 2020-04-26 | Outpatient (CLI) | payer MEDICARE, OTHER ==
[~2020-04-26] MED LIST changes: +KETO10TA PO; +RT-ALBUTEROL SULF 2.5 MG/3 ML PRE-MIX VIAL INH ONE
--- NOTE | 2020-04-26 12:49 | Diagnostic Imaging Report ---
CT Lung Screening INDICATION:56 year pack smoking history shortness of breath TECHNIQUE: Noncontrast, low-dose CT imaging performed according to the lung cancer screening protocol. Auto Exposure Controls were utilize during the CT exam to meet ALARA standards for radiation dose reduction. COMPARISON: 04/25/2019 FINDINGS: The previous CT low-dose lung cancer screening exam of 04/25/2019 failed to show any sign of a parenchymal lung mass. On this exam there is still no evidence for a lung mass that would indicate neoplastic disease. Mild scar formation has developed in the left upper lung. The chronic atelectasis/scar formation in the lingula and the lung bases, seen previously, is again evident and no different. There are emphysematous changes involving both lungs. There is no sign of failure, pneumonia or of pleural effusion to indicate an acute abnormality however. The heart is enlarged but stable when compared to the prior exam. There are no coronary artery calcifications evident. There is no obvious mediastinal or hilar adenopathy. The thyroid gland was not well visualized. The sections through the upper abdomen again show the large hiatal hernia that was noted on the prior exam. This finding is no different. There is no acute abnormality of the abdomen. There is no obvious breast mass. The bone windows are unremarkable for a fracture or for a destructive lesion. IMPRESSION: 1. The overall appearance of the chest has not changed significantly since the prior exam. There is still no parenchymal lung mass to suggest malignancy. A follow-up low-dose lung cancer screening exam would be recommended in 1 year for continued evaluation. 2. Mild scar formation/chronic atelectasis has developed in the left upper lung. There are also chronic pulmonary changes evident but there is no sign of an acute cardiopulmonary abnormality. 3. There is cardiomegaly. 4. The large hiatal hernia, seen previously, is again evident and no different. LUNG-RADS CATEGORY:1 MODIFIER: OTHER SIGNIFICANT FINDINGS: Dictated by: Dictated on workstation # [id number]
== END ==
LOC: RAD 08:21
PROVIDERS: ATTEND Nurse Practitioner Family
DX: Z87.891 Personal history of nicotine dependence (principal); J44.9 Chronic obstructive pulmonary disease, unspecified; J30.9 Allergic rhinitis, unspecified
CPT/HCPCS: 94060; 94726; 94729; G0297

== ENCOUNTER 2020-11-14 06:38 | Inpatient (IN) | payer MEDICARE ==
[~2020-11-14] VITALS: Ht 168 cm; Wt 107.7 kg
[~2020-11-14 06:38] MED LIST changes: -HYDR-83 PO; -RT-ALBUTEROL SULF 2.5 MG/3 ML PRE-MIX VIAL INH ONE
[2020-11-14] MEDS ORDERED: RT-ALBUTEROL SULF 2.5 MG/3 ML PRE-MIX VIAL ONE (06:45)
[2020-11-14] MEDS ORDERED: RT-ALBUTEROL/IPRATROPIUM 3 ML (DUONEB) VIAL ONE (06:45)
[2020-11-14] MEDS ORDERED: VANCOMYCIN INJECTION 2,000 MG in NS IV 500 ML 500 ML IV ONE (06:54)
[2020-11-14] MEDS ORDERED: RT-ALBUTEROL SULF 2.5 MG/3 ML PRE-MIX VIAL INH STA (06:54)
[2020-11-14 06:56] LABS: ABG BASE EXCESS 3.7 MMOL/L (-2.5-2.5); ABG OXYGEN SATURATION 87 % (94-100); ABG PCO2 35 MMHG (35-45); ABG PO2 54 MMHG (79-93); ABG TCO2 27.9 MMOL/L (21.0-31.0)
[2020-11-14 06:57] LABS: ALLENS TEST POS; INSPIRED O2 10L; PATIENT TEMP 36.9; VENTILATOR NO
[2020-11-14] MEDS ORDERED: NS IV 500 ML 500 ML IV ONE (07:00)
[2020-11-14] MEDS ORDERED: ACETAMINOPHEN 500 MG TAB (TYLENOL) PO PRN (07:00)
[2020-11-14] MEDS ORDERED: CEFEPIME INJECTION 1,000 MG in WATER (STERILE) FOR INJECTION 10 ML IV ONE (07:00)
[2020-11-14] MEDS ORDERED: RT-ALBUTEROL/IPRATROPIUM 3 ML (DUONEB) VIAL INH ONE (07:00)
[2020-11-14] MEDS ORDERED: LACTATED RINGERS 1,000 ML IV ONE ×3 (07:00→10:00)
[2020-11-14 07:02] VITALS: BP 121/46
[2020-11-14 07:12] LABS: BASOPHILS % (AUTO) 0 % (0-10); EOSINOPHILS % (AUTO) 0 % (0-10); HEMATOCRIT 40 % (35-52); HEMOGLOBIN 12.1 g/dL (11.5-16.0); LYMPHOCYTES % (AUTO) 9 % (12-44); MEAN CORPUSCULAR HEMOGLOBIN 26 pg (25-34); MEAN CORPUSCULAR HGB CONC 31 g/dL (32-36); MEAN CORPUSCULAR VOLUME 86 fL (80-99); MEAN PLATELET VOLUME 11.4 fL (9.0-12.2); MONOCYTES # (AUTO) 0.5 10^3/uL (0.0-1.0); MONOCYTES % (AUTO) 5 % (0-12); NEUTROPHILS # (AUTO) 9.2 10^3/uL (1.8-7.8); NEUTROPHILS % (AUTO) 85 % (42-75); PLATELET COUNT 246 10^3/uL (130-400); WHITE BLOOD COUNT 10.9 10^3/uL (4.3-11.0)
--- NOTE | 2020-11-14 07:20 | ED Respiratory ---
General Chief Complaint: Respiratory Problems Stated Complaint: SOB Nursing Triage Note: brought in by [facility] for in creased soa. low spo2. reports dx with bronchitis 11/09/2020 at [facility], started on abx without improvement. Source: patient, EMS Exam Limitations: no limitations History of Present Illness Date Seen by Provider: Nov 14, 2020 Time Seen by Provider: 06:42 Initial Comments Patient presents to the ER by EMS from home with chief complaint of shortness of breath wheezing and productive cough without fever progressively worsening over the last 4 days. 4 days ago she went to the walk-in clinic at [facility] and was told she had bronchitis and was put on an antibiotic and steroid which she said did nothing to help her symptoms. She has been using her DuoNeb at home more frequently for her emphysema with decreasing returns. No known sick contacts. She says she was not tested recently for Covid or influenza. EMS reports they put her on a DuoNeb at 8 L/min and brought her sats up to the low 80s. No known cardiac history. She is having no dysuria syncope or pain. Allergies and Home Medications Allergies Coded Allergies: Penicillins (Unverified Allergy, Mild, HIVES, 05/30/19) fluticasone (Verified Allergy, Mild, HIVES, 05/30/19) salmeterol (Verified Allergy, Mild, HIVES, 05/30/19) Home Medications Albuterol Sulfate 1 Puff Puff, 2 PUFF IH Q4H PRN for SHORTNESS OF BREATH, (Reported) 1 PUFF = 90 MCG Fluticasone/Vilanterol 1 Each Blst.w.dev, 1 PUFF IH DAILY, (Reported) Hydrocodone/Acetaminophen 1 Each Tablet, 1 EACH PO Q6H PRN for PAIN-MODERATE (5- 7), (Reported) Ketorolac Tromethamine 10 Mg Tablet, 10 MG PO Q8H Prescribed by: ALEXA GASTON on 04/11/20 1111 Lisinopril 5 Mg Tablet, 5 MG PO DAILY, (Reported) Montelukast Sodium 10 Mg Tablet, 10 MG PO HS, (Reported) Omeprazole 20 Mg Capsule.dr, 20 MG PO DAILY, (Reported) Umeclidinium [place] 62.5 Mcg Blst.w.dev, 1 PUFF IH DAILY, (Reported) Patient Home Medication List Home Medication List Reviewed: Yes Review of Systems Review of Systems Constitutional: No chills; diaphoresis; No fever; malaise, weakness EENTM: No ear discharge, No ear pain Respiratory: cough; No hemoptysis, No orthopnea; phlegm, short of breath, wheezing Cardiovascular: No chest pain, No edema, No Hx of Intervention Gastrointestinal: No abdominal pain, No nausea, No vomiting Genitourinary: No discharge, No dysuria : No Musculoskeletal: No back pain, No joint pain Skin: No pruritus, No rash Psychiatric/Neurological: Denies Headache, Denies Numbness All Other Systems Reviewed Negative Unless Noted: Yes Past Flhcsjx-Nkcbco-Jiloyc Hx Patient Social History Alcohol Use: Denies Use Recreational Drug Use: No Smoking Status: Former Smoker Type Used: Cigarettes Former Smoker, Quit: Oct 20, 2014 2nd Hand Smoke Exposure: No Recent Foreign Travel: No Contact w/Someone Who Travel: No Recent Infectious Disease Expo: No Recent Hopitalizations: No Immunizations Up To Date Date of Pneumonia Vaccine: Aug 23, 2017 Date of Influenza Vaccine: Aug 22, 2019 Seasonal Allergies Seasonal Allergies: No Past Medical History Surgeries: Yes (c/s x3, knee scope) Section, Gallbladder Respiratory: Yes (wears oxygen at night) Sleep Apnea, Emphysema Currently Using CPAP: Yes Cardiac: No Neurological: No : No 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 Sexually Transmitted Disease: No HIV/AIDS: No Genitourinary: Yes Gastrointestinal: Yes Abdominal Hernia, Gastroesophageal Reflux, Chronic Diarrhea Musculoskeletal: Yes Arthritis, Chronic Back Pain Endocrine: No HEENT: Yes (GLASSES, DENTURES) Loss of Vision: Denies Hearing Impairment: Denies Cancer: No Psychosocial: No Integumentary: No Blood Disorders: No Adverse Reaction/Blood Tranf: No (N/A) Family Medical History No Pertinent Family Hx Physical Exam Vital Signs - First Documented 11/14/20 11/14/20 11/14/20 06:42 07:02 07:05 Temp 37.6 Pulse 112 Resp 26 B/P (MAP) 131/96 (108) Pulse Ox 81 O2 Delivery OxyMask O2 Flow Rate 50.00 FiO2 50 Capillary Refill : Less Than 3 Seconds Height: 5'7.00" Weight: 262lbs. 4.0oz. 118.828980ad; 42.00 BMI Method:Stated General Appearance: severe distress, obese Eyes: Bilateral Eye Normal Inspection, Bilateral Eye PERRL, Bilateral Eye EOMI HEENT: PERRL/EOMI, pharynx normal Neck: non-tender, full range of motion, normal inspection Respiratory: respiratory distress (Severe with oxygen sats 80% on 9 L through a small-volume nebulizer), accessory muscle use, wheezing, expiration (Prolonged) Cardiovascular: normal peripheral pulses, regular rate, rhythm, tachycardia Gastrointestinal: normal bowel sounds, non tender, soft Extremities: normal range of motion, non-tender, normal capillary refill Neurologic/Psychiatric: no motor/sensory deficits, alert, oriented x 3, other (Anxious affect) Skin: normal color, warm/dry Focused Exam Sepsis Stage: Severe Sepsis Possible Source: Pulmonary Lactate Level 11/14/20 06:50: Lactic Acid Level 2.34*H Time of Focused Exam: 08:32 Respiratory: Accessory Muscle Use, Respiratory Distress, Wheezing Cardiovascular: Regular Rate, Rhythm, No Edema, Normal Peripheral Pulses Capillary Refill: Less Than 3 Seconds Peripheral Pulses: 2+ Radial Pulses (R), 2+ Radial Pulses (L) Skin: normal color, warm/dry Lactic Acid Level Laboratory Tests Test 11/14/20 06:50 Lactic Acid Level 2.34 MMOL/L (0.50-2.00) *H Within 3hrs of presentation: Admin fluids, Admin 30ml/kg IBW due to BMI>30, Admin ABX, Blood cultures prior to ABX's, Focus exam, Lactate level Progress/Results/Core Measures Suspected Sepsis Recent Fever Within 48 Hours: Yes Infection Criteria Present: Documented Infection New/Unexplained Altered Menta: No Sepsis Screen: Possible Sepsis Risk SIRS Temperature: Pulse: 99 Respiratory Rate: 18 Laboratory Tests 11/14/20 06:50: White Blood Count 10.9 Blood Pressure 121 /46 Mean: 108 11/14/20 06:50: Lactic Acid Level 2.34*H Laboratory Tests 11/14/20 06:50: Creatinine 0.74, INR Comment 1.1, Platelet Count 246, Total Bilirubin 0.9 Results/Orders Lab Results Laboratory Tests Test 11/14/20 06:50 11/14/20 06:54 11/14/20 07:54 Range/Units White Blood Count 10.9 4.3-11.0 10^3/uL Red Blood Count 4.62 3.80-5.11 10^6/uL Hemoglobin 12.1 11.5-16.0 g/dL Hematocrit 40 35-52 % Mean Corpuscular Volume 86 80-99 fL Mean Corpuscular Hemoglobin 26 25-34 pg Mean Corpuscular Hemoglobin Concent 31 L 32-36 g/dL Red Cell Distribution Width 14.6 H 10.0-14.5 % Platelet Count 246 130-400 10^3/uL Mean Platelet Volume 11.4 9.0-12.2 fL Immature Granulocyte % (Auto) 1 % Neutrophils (%) (Auto) 85 H 42-75 % Lymphocytes (%) (Auto) 9 L 12-44 % Monocytes (%) (Auto) 5 0-12 % Eosinophils (%) (Auto) 0 0-10 % Basophils (%) (Auto) 0 0-10 % Neutrophils # (Auto) 9.2 H 1.8-7.8 10^3/uL Lymphocytes # (Auto) 1.0 1.0-4.0 10^3/uL Monocytes # (Auto) 0.5 0.0-1.0 10^3/uL Eosinophils # (Auto) 0.0 0.0-0.3 10^3/uL Basophils # (Auto) 0.0 0.0-0.1 10^3/uL Immature Granulocyte # (Auto) 0.1 0.0-0.1 10^3/uL Prothrombin Time 14.1 12.2-14.7 SEC INR Comment 1.1 0.8-1.4 Activated Partial Thromboplast Time 22 L 24-35 SEC D-Dimer 3.52 H 0.00-0.49 UG/ML Blood Gas Puncture Site [facility] RAD Blood Gas Patient Temperature 36.9 Arterial Blood pH 7.50 H 7.37-7.43 Arterial Blood Partial Pressure CO2 35 35-45 MMHG Arterial Blood Partial Pressure O2 54 L 79-93 MMHG Arterial Blood HCO3 27 23-27 MMOL/L Arterial Blood Total CO2 27.9 21.0-31.0 MMOL/L Arterial Blood Oxygen Saturation 87 L 94-100 % Arterial Blood Base Excess 3.7 H -2.5-2.5 MMOL/L Momo Test POS Blood Gas Ventilator Setting NO Blood Gas Inspired Oxygen 10L Sodium Level 142 135-145 MMOL/L Potassium Level 3.4 L 3.6-5.0 MMOL/L Chloride Level 102 98-107 MMOL/L Carbon Dioxide Level 27 21-32 MMOL/L Anion Gap 13 5-14 MMOL/L Blood Urea Nitrogen 11 7-18 MG/DL Creatinine 0.74 0.60-1.30 MG/DL Estimat Glomerular Filtration Rate > 60 BUN/Creatinine Ratio 15 Glucose Level 122 H 70-105 MG/DL Lactic Acid Level 2.34 *H 0.50-2.00 MMOL/L Calcium Level 8.4 L 8.5-10.1 MG/DL Corrected Calcium 9.0 8.5-10.1 MG/DL Total Bilirubin 0.9 0.1-1.0 MG/DL Aspartate Amino Transf (AST/SGOT) 27 5-34 U/L Alanine Aminotransferase (ALT/SGPT) 22 0-55 U/L Alkaline Phosphatase 79 40-136 U/L C-Reactive Protein High Sensitivity 32.36 H 0.00-0.50 MG/DL Total Protein 7.0 6.4-8.2 GM/DL Albumin 3.2 3.2-4.5 GM/DL Procalcitonin 0.14 H <0.10 NG/ML Coronavirus 2019 (ASHLIE) Positive H Negative Urine Color BIRD H Urine Clarity CLEAR Urine pH 6.5 5-9 Urine Specific [place] 1.020 1.016-1.022 Urine Protein 1+ H NEGATIVE Urine Glucose (UA) NEGATIVE NEGATIVE Urine Ketones NEGATIVE NEGATIVE Urine Nitrite NEGATIVE NEGATIVE Urine Bilirubin NEGATIVE NEGATIVE Urine Urobilinogen 4.0 < = 1.0 MG/DL Urine Leukocyte Esterase NEGATIVE NEGATIVE Urine RBC (Auto) NEGATIVE NEGATIVE Urine RBC NONE /HPF Urine WBC 0-2 /HPF Urine Squamous Epithelial Cells 2-5 /HPF Urine Crystals NONE /LPF Urine Bacteria NEGATIVE /HPF Urine Casts NONE /LPF Urine Mucus SMALL H /LPF Urine Culture Indicated NO Micro Results Microbiology 11/14/20 Influenza Types A,B Antigen (ARIADNA) - Final, Complete My Orders Orders - ARYAN ORANTES Arterial Blood Gas (11/14/20 06:47) Albuterol Pre-Mix Nebs (Rt) (Proventil (11/14/20 06:45) Albuterol/Ipra Inhalation Soln (Duoneb I (11/14/20 06:45) Cbc With Automated Diff (11/14/20 06:54) Comprehensive Metabolic Panel (11/14/20 06:54) Blood Culture (11/14/20 06:54) Sputum Culture (11/14/20 06:54) Urinalysis (11/14/20 06:54) Urine Culture (11/14/20 06:54) Protime With Inr (11/14/20 06:54) Partial Thromboplastin Time (11/14/20 06:54) Chest 1 View, Ap/Pa Only (11/14/20 06:54) Acetaminophen Tablet (Tylenol Tablet) (11/14/20 07:00) Ed Iv/Invasive Line Start (11/14/20 06:54) Ed Iv/Invasive Line Start (11/14/20 06:54) Vital Signs Adult Sepsis Patie Q15M (11/14/20 06:54) O2 (11/14/20 06:54) Remove Rings In Anticipation O (11/14/20 06:54) Lactic Acid Analyzer (11/14/20 06:54) Influenza A And B Antigens (11/14/20 06:54) Lactated Ringers (Lr 1000 Ml Iv Solution (11/14/20 07:00) Cefepime Injection (Maxipime Injection) (11/14/20 07:00) Vancomycin Injection (Vancomycin Injecti (11/14/20 06:54) Ed Iv/Invasive Line Start (11/14/20 06:54) Ns Iv 500 Ml (Sodium Chloride 0.9%) (11/14/20 07:00) Lactated Ringers (Lr 1000 Ml Iv Solution (11/14/20 07:00) Albuterol Pre-Mix Nebs (Rt) (Proventil (11/14/20 06:54) Albuterol/Ipra Inhalation Soln (Duoneb I (11/14/20 07:00) Dexamethasone Injection (Decadron Inje (11/14/20 07:00) Svn Small Volume Nebulizer (11/14/20 06:54) Covid 19 Inhouse Test (11/14/20 06:54) Coronavirus Sars-Cov-2 So 2018 (11/14/20 06:54) Procalcitonin (Pct) (11/14/20 07:13) Hs C Reactive Protein (11/14/20 07:13) Fibrin Degradation Products (11/14/20 07:13) Catheter(Urinary) Insert & Ass 03,15 (11/14/20 07:52) Enoxaparin Injection (Lovenox Injection) (11/14/20 08:30) Medications Given in ED Current Medications Medications Dose Ordered Sig/Shawanda Route Start Time Stop Time Status Last Admin Dose Admin Acetaminophen 1,000 mg ONCE PRN PO 11/14/20 07:00 11/14/20 07:37 DC 11/14/20 07:35 1,000 MG Albuterol Sulfate 2.5 mg STK-MED ONCE .ROUTE 11/14/20 06:45 11/14/20 06:49 DC 11/14/20 07:02 12.5 MG Albuterol/ Ipratropium 3 ml STK-MED ONCE .ROUTE 11/14/20 06:45 11/14/20 06:49 DC 11/14/20 06:45 3 ML Cefepime HCl 1000 mg/Sterile Water 10 ml @ 200 mls/hr ONCE ONCE IV 11/14/20 07:00 11/14/20 07:04 DC 11/14/20 07:35 200 MLS/HR Dexamethasone Sodium Phosphate 10 mg ONCE ONCE IV 11/14/20 07:00 11/14/20 07:04 DC 11/14/20 07:36 10 MG Lactated Ringer's 1,000 ml @ 0 mls/hr Q0M ONCE IV 11/14/20 07:00 11/14/20 07:04 DC 11/14/20 07:36 1,000 MLS/HR Lactated Ringer's 1,000 ml @ 0 mls/hr Q0M ONCE IV 11/14/20 07:00 11/14/20 07:04 DC 11/14/20 07:36 1,000 MLS/HR Vancomycin HCl 2000 mg/Sodium Chloride 500 ml @ 260 mls/hr 0654 ONCE IV 11/14/20 06:54 11/14/20 08:49 11/14/20 07:35 260 MLS/HR Vital Signs/I&O 11/14/20 11/14/20 11/14/20 06:42 07:02 07:05 Temp 37.6 Pulse 112 99 Resp 26 18 B/P (MAP) 131/96 (108) Pulse Ox 81 94 94 O2 Delivery OxyMask NIV Bilevel O2 Flow Rate 50.00 FiO2 50 Capillary Refill : Less Than 3 Seconds Blood Pressure Mean: 108 Progress Note : Time: 07:20 Progress Note Patient is considerably better after initiating an hour-long DuoNeb and albuterol treatment through BiPAP set at 15/7. Her oxygen sats on 100% are 95% and her work of breathing has considerably decreased. We did swab her for Covid as well as influenza and obtain a septic work-up. We titrated her IV fluids to an ideal body weight of 84 kg based on having a BMI greater than 30. 2500 cc fluid she does appear dry and says she has had decreased fluid intake for the past several days. Her ABG shows profound hypoxia and no significant CO2 buildup making an embolism or infection more likely. Given her productive cough and borderline fever an infection is more likely. Spoke to her Raul and Meri over the phone. Diagnostic Imaging Diagonstic Imaging: Xray Plain Films/CT/US/NM/MRI: chest Comments NAME: TEJAS GALLO [facility] REC#: [id number] PT STATUS: REG ER : 1945 PHYSICIAN: ARYAN ORANTES MD ADMIT DATE: 11/14/20/ER Draft Date of Exam:11/14/20 CHEST 1 VIEW, AP/PA ONLY INDICATION: Sepsis COMPARISON: 10/21/2016 FINDINGS: Single view of the chest demonstrates cardiac enlargement with bilateral pulmonary infiltrates representing CHF versus pneumonia. There is no pneumothorax or large effusion. Osseous structures are stable. IMPRESSION: Cardiac enlargement with bilateral pulmonary infiltrates probably CHF. Pneumonia not excluded. Follow-up recommended. Dictated on workstation # [id number] Dict: 11/14/20 0729 Trans: 11/14/20 0733 [facility] [id number] Interpreted by: DILLON STEPHENS Electronically signed by: Reviewed: Reviewed by Me Departure Communication (Admissions) Time/Spoke to Admitting Phy: 08:30 Discussed the case with Dr. Pham and she agrees to admit the patient to the ICU with consultation to Dr. Benavides. Time/Spoke to Consulting Phy: 08:30 Discussed the case with Dr. Benavides and he agrees to consult on the case. He agrees with broad-spectrum antibiotics, Decadron and he recommends full Lovenox therapy based on her elevated D-dimer and the treatment plan is to treat for a presumed pulmonary embolism even if her CT angio was done today was negative the chances of her developing a pulmonary embolism are exquisitely high. Impression Primary Impression: Acute respiratory failure Qualified Codes: J96.01 - Acute respiratory failure with hypoxia Additional Impression: COVID-19 Disposition: ADMITTED INPATIENT Condition: Critical Admissions Decision to Admit Reason: Admit from ER (General) Decision to Admit/Date: Nov 14, 2020 Time/Decision to Admit Time: 07:10 Departure-Patient Inst. Referrals: [facility]/RACHEL (PCP) Primary Care Physician PATRICIA JARAMILLO (Family) Primary Care Physician ARYAN ORANTES Nov 14, 2020 07:20
[2020-11-14 07:25] LABS: INR 1.1 (0.8-1.4); PROTHROMBIN TIME PATIENT 14.1 SEC (12.2-14.7)
--- NOTE | 2020-11-14 07:34 | Diagnostic Imaging Report ---
INDICATION: Sepsis COMPARISON: 10/21/2016 FINDINGS: Single view of the chest demonstrates cardiac enlargement with bilateral pulmonary infiltrates representing CHF versus pneumonia. There is no pneumothorax or large effusion. Osseous structures are stable. IMPRESSION: Cardiac enlargement with bilateral pulmonary infiltrates probably CHF. Pneumonia not excluded. Follow-up recommended. Dictated by: Dictated on workstation # [id number]
[2020-11-14 07:37] LABS: ALANINE AMINOTRANSFERASE 22 U/L (0-55); ALBUMIN 3.2 GM/DL (3.2-4.5); ALKALINE PHOSPHATASE 79 U/L (40-136); BILIRUBIN,TOTAL 0.9 MG/DL (0.1-1.0); BUN/CREATININE RATIO 15; CALCIUM 8.4 MG/DL (8.5-10.1); CARBON DIOXIDE 27 MMOL/L (21-32); CHLORIDE 102 MMOL/L (98-107); CREATININE SERUM 0.74 MG/DL (0.60-1.30); GFR ESTIMATED > 60; GLUCOSE 122 MG/DL (70-105); POTASSIUM 3.4 MMOL/L (3.6-5.0); SODIUM 142 MMOL/L (135-145)
[2020-11-14 08:01] LABS: BILIRUBIN,URINE NEGATIVE (NEGATIVE); CLARITY,URINE CLEAR; COLOR,URINE AMBER; GLUCOSE, URINE (UA) NEGATIVE (NEGATIVE); KETONES,URINE NEGATIVE (NEGATIVE); LEUKOCYTE ESTERASE ,URINE NEGATIVE (NEGATIVE); NITRITE,URINE NEGATIVE (NEGATIVE); PH,URINE 6.5 (5-9); PROTEIN,URINE 1+ (NEGATIVE)
[2020-11-14 08:14] LABS: BACTERIA,URINE NEGATIVE /HPF; WBC,URINE 0-2 /HPF
[2020-11-14] MEDS ORDERED: ENOXAPARIN 60 MG/0.6 ML (LOVENOX) SYR SC ONE (08:30)
[2020-11-14] MEDS ORDERED: ONDANSETRON 4 MG/2 ML (SDV) Z0FRAN IV PRN (10:00)
[2020-11-14] MEDS ORDERED: IBUPROFEN 600 MG (MOTRIN) TAB PO PRN (10:00)
[2020-11-14] MEDS ORDERED: EPINEPHrine 1 MG INJECTION 4 MG in NS (IVPB) 248 ML IV SCH (10:00)
[2020-11-14] MEDS ORDERED: LACTATED RINGERS 1,000 ML IV SCH (10:00)
[2020-11-14] MEDS ORDERED: REMDESIVIR INJ 200 MG in NS (IVPB) 210 ML IV NR (10:00)
[2020-11-14 10:12] VITALS: BP 139/80
--- NOTE | 2020-11-14 10:20 | NUR ---
VANCOMYCIN PHARMACY TO DOSE: ADJ BW 84 KG, CrCl 77 LOADING DOSE OF 2,000 MG GIVEN IN ED MAIN DOSE 1,750 MG IV BID VANCOMYCIN TROUGH DUE 11/15/20 @ 16:00 IF TROUGH > 20 HOLD 11/15/20 17:00 DOSE
[2020-11-14] MEDS: LACTATED RINGERS 1,000 ML IV SCH (10:29)
--- NOTE | 2020-11-14 10:40 | Pulmonary Consultation ---
History of Present Illness History of Present Illness Date of Admission Allergies and Home Medications Allergies Coded Allergies: Penicillins (Unverified Allergy, Mild, HIVES, 05/30/19) fluticasone (Verified Allergy, Mild, HIVES, 05/30/19) salmeterol (Verified Allergy, Mild, HIVES, 05/30/19) Home Medications Albuterol Sulfate 1 Puff Puff, 2 PUFF IH Q4H PRN for SHORTNESS OF BREATH, (Reported) 1 PUFF = 90 MCG Fluticasone/Vilanterol 1 Each Blst.w.dev, 1 PUFF IH DAILY, (Reported) Hydrocodone/Acetaminophen 1 Each Tablet, 1 EACH PO Q6H PRN for PAIN-MODERATE (5- 7), (Reported) Ketorolac Tromethamine 10 Mg Tablet, 10 MG PO Q8H Prescribed by: ALEXA GASTON on 04/11/20 1111 Lisinopril 5 Mg Tablet, 5 MG PO DAILY, (Reported) Montelukast Sodium 10 Mg Tablet, 10 MG PO HS, (Reported) Omeprazole 20 Mg Capsule.dr, 20 MG PO DAILY, (Reported) Umeclidinium [place] 62.5 Mcg Blst.w.dev, 1 PUFF IH DAILY, (Reported) Past Lwjvyeq-Agsuzj-Fyxjcb Hx Patient Social History Alcohol Use: Denies Use Recreational Drug Use: No Smoking Status: Former Smoker Type Used: Cigarettes Former Smoker, Quit: Oct 20, 2014 2nd Hand Smoke Exposure: No Recent Foreign Travel: No Contact w/Someone Who Travel: No Recent Infectious Disease Expo: No Recent Hopitalizations: No Immunizations Up To Date Date of Pneumonia Vaccine: Aug 23, 2017 Date of Influenza Vaccine: Aug 22, 2020 Seasonal Allergies Seasonal Allergies: No Past Medical History Surgeries: Yes (c/s x3, knee scope) Section, Gallbladder Respiratory: Yes (wears oxygen at night) Sleep Apnea, Emphysema Currently Using CPAP: Yes Cardiac: No Neurological: No : No Reproductive Disorders: No [employer] History: Menopausal Sexually Transmitted Disease: No HIV/AIDS: No Genitourinary: Yes Gastrointestinal: Yes Abdominal Hernia, Gastroesophageal Reflux, Chronic Diarrhea Musculoskeletal: Yes Arthritis, Chronic Back Pain Endocrine: No HEENT: Yes (GLASSES, DENTURES) Loss of Vision: Denies Hearing Impairment: Denies Cancer: No Psychosocial: No Integumentary: No Blood Disorders: No Adverse Reaction/Blood Tranf: No (N/A) Family Medical History No Pertinent Family Hx Sepsis Event Evaluation Height, Weight, BMI Height: 5'7.00" Weight: 262lbs. 4.0oz. 118.911059ly; 42.00 BMI Method:Stated Exam Exam Vital Signs Date Time Temp Pulse Resp B/P (MAP) Pulse Ox O2 Delivery O2 Flow Rate FiO2 11/14/20 10:12 92 28 94 45.00 11/14/20 10:00 94 26 139/80 (99) 94 NIV Bilevel 45.00 11/14/20 09:30 103 139/84 (102) 96 NIV Bilevel 45.00 11/14/20 07:05 94 NIV Bilevel 50 11/14/20 07:02 99 18 94 50.00 11/14/20 06:42 37.6 112 26 131/96 (108) 81 OxyMask Height & Weight Height: 5'7.00" Weight: 262lbs. 4.0oz. 118.641980wx; 42.00 BMI Method:Stated Respiratory: Accessory Muscle Use, Respiratory Distress, Wheezing Cardiovascular: Regular Rate, Rhythm, No Edema, Normal Peripheral Pulses Capillary Refill: Less Than 3 Seconds Peripheral Pulses: 2+ Radial Pulses (R), 2+ Radial Pulses (L) Gastrointestinal: normal bowel sounds, non tender, soft Results Lab Laboratory Tests 11/14/20 06:50 LEANDRO NELSON DO Nov 14, 2020 10:40
[2020-11-14 10:49] LABS: ABG OXYGEN SATURATION 69 % (94-100); ABG PCO2 44 MMHG (35-45); ABG PH 7.38 (7.37-7.43); ABG PO2 42 MMHG (79-93); ABG TCO2 27.1 MMOL/L (21.0-31.0)
[2020-11-14 10:50] LABS: ALLENS TEST YES-POS; INSPIRED O2 BIPAP 45%; PATIENT TEMP 36.5; VENTILATOR NO
[2020-11-14] MEDS: NOREPINEPHRINE 4 MG/250 ML 250 ML IV SCH ×4 (10:50→21:11)
[2020-11-14] MEDS: VASOPRESSIN INJECTION 20 UNIT in NS (IVPB) 100 ML IV SCH ×3 (10:52→21:11)
[2020-11-14] MEDS: CEFEPIME 1,000 MG/SWFI 10 ML IV PUSH IV SCH ×6 (11:37→23:47)
--- NOTE | 2020-11-14 12:21 | History & Physical-Hospitalist ---
History of Present Illness HPI/Chief Complaint CC: Dyspnea HPI: This is a 75yoWF with h/o severe O2 dependent COPD who presented to the ER with increased dyspnea with hypoxia. Patient was dx with COVID. Protocol meds started and patient required IVF and biPAP in ER and is doing better now and trying to convert over to Vapotherm. Unable to speak due to biPAP. Source: patient, RN/MD, old records Exam Limitations: clinical condition Date Seen 11/14/20 Time Seen by a Provider: 10:00 Attending Physician Rita Pham DO [facility] Referring Physician Date of Admission Nov 14, 2020 at 07:50 Home Medications & Allergies Home Medications Reviewed patient Home Medication Reconciliation performed by pharmacy medication reconciliations ophthalmology surgical technician and/or nursing. Patients Allergies have been reviewed. Allergies Allergies Coded Allergies Penicillins (Unverified Allergy, Mild, HIVES, 05/30/19) fluticasone (Verified Allergy, Mild, HIVES, 05/30/19) salmeterol (Verified Allergy, Mild, HIVES, 05/30/19) Past Qezlsye-Wrzscf-Yfejvv Hx Past Med/Social Hx: Reviewed Nursing Past Med/Soc Hx, Reviewed and Corrections made Patient Social History Marrital Status: single Employed/Student: retired Alcohol Use: Denies Use Recreational Drug Use: No Smoking Status: Former Smoker Former Smoker, Quit: Oct 20, 2014 Type Used: Cigarettes 2nd Hand Smoke Exposure: No Recent Foreign Travel: No Contact w/other who traveled: No Recent Hopitalizations: No Recent Infectious Disease Expo: No Immunizations Up To Date Date of Pneumonia Vaccine: Aug 23, 2017 Date of Influenza Vaccine: Aug 22, 2020 Seasonal Allergies Seasonal Allergies: No Past Medical History Surgeries: Section, Gallbladder Currently Using CPAP: Yes : No Reproductive: No Sexually Transmitted Disease: No HIV/AIDS: No Menopausal Gastrointestinal: Abdominal Hernia, Gastroesophageal Reflux, Chronic Diarrhea Musculoskeletal: Arthritis, Chronic Back Pain Loss of Vision: Denies Hearing Impairment: Denies History of Blood Disorders: No Adverse Reaction to Blood Rosario: No (N/A) Family History No Pertinent Family Hx Review of Systems Constitutional: see HPI Respiratory: dyspnea on exertion Physical Exam Physical Exam Vital Signs Vital Signs - First Documented 11/14/20 11/14/20 11/14/20 06:42 07:02 07:05 Temp 37.6 Pulse 112 Resp 26 B/P (MAP) 131/96 (108) Pulse Ox 81 O2 Delivery OxyMask O2 Flow Rate 50.00 FiO2 50 Capillary Refill : Less Than 3 Seconds Height, Weight, BMI Height: 5'7.00" Weight: 262lbs. 4.0oz. 118.050396ow; 42.00 BMI Method:Stated General Appearance: Chronically ill, Mild Distress Eyes: Right Eye Normal Inspection, Right Eye PERRL HEENT: PERRL/EOMI, Normal ENT Inspection, Pharynx Normal, Moist Mucous Membranes Neck: Full Range of Motion, Normal Inspection, Non Tender Respiratory: Chest Non Tender, No Respiratory Distress, Accessory Muscle Use, Decreased Breath Sounds Cardiovascular: Regular Rate, Rhythm, No Edema, No Gallop, No JVD, No Murmur, Normal Peripheral Pulses Gastrointestinal: Normal Bowel Sounds, No Organomegaly, No Pulsatile Mass, Non Tender, Soft Back: Normal Inspection, No CVA Tenderness, No Vertebral Tenderness Extremity: Normal Capillary Refill, Normal Inspection, Normal Range of Motion, Non Tender, No Calf Tenderness, No Pedal Edema Neurologic/Psychiatric: Alert, Oriented x3, No Motor/Sensory Deficits, Normal Mood/Affect Skin: Normal Color, Warm/Dry Lymphatic: No Adenopathy Results Results/Procedures Labs Laboratory Tests 11/14/20 06:50 Patient resulted labs reviewed. Assessment/Plan Admission Diagnosis Assessment: COVID-19 PNA Severe baseline COPD O2 dependence HTN Plan: ICU BiPAP Admission Status: Inpatient Order (span 2 midnights) Reason for Inpatient Admission: covid 19 Diagnosis/Problems Diagnosis/Problems (1) COVID-19 Status: Acute (2) Acute respiratory failure Status: Acute Qualifiers: Respiratory failure complication: hypoxia Qualified Codes: J96.01 - Acute respiratory failure with hypoxia RITA PHAM DO Nov 14, 2020 12:21
[2020-11-14 12:24] VITALS: BP 149/87
[2020-11-14] MEDS ORDERED: guaiFENesin/CODEINE (ROBITUSSIN AC) 10ML UDC ONE (14:38)
[2020-11-14] MEDS: guaiFENesin/CODEINE (ROBITUSSIN AC) 10ML UDC PO PRN ×2 (14:43→20:50)
[2020-11-14] MEDS: RT-ALBUTEROL INHALER HFA (VENTOLIN HFA) 18 GM IH SCH ×2 (14:48→20:00)
[2020-11-14] MEDS: VANCOMYCIN 1,750 MG/NS 500 ML IVPB IV SCH ×2 (17:24)
[2020-11-14] MEDS ORDERED: BENZONATATE 100 MG (TESSALON) CAPSULE PO STA (17:33)
--- NOTE | 2020-11-14 17:34 | NUR ---
SPOKE WITH THE PT (CALLED THE ROOM PHONE) AND WENT THRU THE EXT MED HISTORY TO COMPLETE THE MED REC WHEN I SPOKE WITH THE PT SHE WAS NOT ABLE TO TALK FOR LONG DUE TO THE BI-PAP, BUT ALL THE INFORMATION SHE WAS ABLE TO GIVE MATCHED THE EXT MED HISTORY SHE FILLED A Z-LORENZO AND PREDNISONE ON 11-09-2020 FOR 5 DAY SUPPLIES- WHEN I ASKED IF SHE HAD FINISHED SHE WASNT SURE BUT THOUGHT SHE HAD. I DID NOT INCLUDE THEM ON THE MED REC
[2020-11-14] MEDS ORDERED: BENZONATATE 100 MG (TESSALON) CAPSULE PO ONE (17:36)
[2020-11-14] MEDS: ENOXAPARIN 300 MG/3 ML (LOVENOX) MULTI-DOSE VIAL SQ SCH (20:49)
[2020-11-15] MEDS: RT-ALBUTEROL INHALER HFA (VENTOLIN HFA) 18 GM IH SCH ×6 (01:00→21:57)
[2020-11-15] MEDS: guaiFENesin/CODEINE (ROBITUSSIN AC) 10ML UDC PO PRN ×3 (02:28→18:09)
[2020-11-15] MEDS: RT-ALBUTEROL INHALER HFA (VENTOLIN HFA) 18 GM IH PRN (03:43)
--- NOTE | 2020-11-15 04:24 | Pulmonary Progress Note ---
Subjective Time Seen by a Provider: 04:18 Subjective/Events-last exam Pt currently requiring BiPAP Sepsis Event Evaluation Height, Weight, BMI Height: 5'7.00" Weight: 262lbs. 4.0oz. 118.752689zl; 42.00 BMI Method:Stated Focused Exam Lactate Level 11/14/20 06:50: Lactic Acid Level 2.34*H 11/14/20 09:05: Lactic Acid Level 2.68*H 11/14/20 11:15: Lactic Acid Level 1.79 Time of Focused Exam: 08:32 Exam Exam Vital Signs Date Time Temp Pulse Resp B/P (MAP) Pulse Ox O2 Delivery O2 Flow Rate FiO2 11/15/20 03:42 NIV Bilevel 55.00 11/15/20 02:36 Vapotherm 30.00 75.00 11/15/20 02:30 35.9 Vapotherm 30.00 65.00 11/15/20 00:00 63 25 155/85 (108) 97 NIV Bilevel 45.00 11/14/20 23:00 54 25 156/84 (108) 94 NIV Bilevel 45.00 11/14/20 22:40 36.4 NIV Bilevel 45.00 11/14/20 22:00 61 24 141/86 (105) 97 Vapotherm 30.00 65.00 11/14/20 21:00 70 34 156/89 (111) 94 Vapotherm 30.00 65.00 11/14/20 20:03 91 Vapotherm 30.00 65 11/14/20 20:00 84 18 158/87 (110) 91 Vapotherm 30.00 65.00 11/14/20 19:57 92 Vapotherm 30.00 65 11/14/20 19:45 36.1 Vapotherm 30.00 65.00 11/14/20 19:01 36.8 11/14/20 19:00 83 11/14/20 19:00 78 29 141/90 (107) 94 Vapotherm 30.00 65.00 11/14/20 18:00 92 9 143/81 (101) 92 NIV Bilevel 45.00 11/14/20 17:00 70 28 147/75 (102) 92 NIV Bilevel 45.00 11/14/20 16:14 36.8 11/14/20 16:00 78 31 137/75 (98) 96 NIV Bilevel 45.00 11/14/20 15:00 92 28 132/72 (92) 95 NIV Bilevel 45.00 11/14/20 14:48 92 Vapotherm 30.00 65 11/14/20 14:00 100 25 138/84 (102) 93 NIV Bilevel 45.00 11/14/20 13:49 84 19 132/72 (107) 93 OxyMask 10.00 11/14/20 13:00 105 10 127/80 (96) 90 NIV Bilevel 45.00 11/14/20 13:00 88 11/14/20 12:24 36.7 90 93 11/14/20 12:24 93 Vapotherm 30.00 55 11/14/20 12:00 88 31 138/85 (102) 94 NIV Bilevel 45.00 11/14/20 11:40 36.7 45.00 11/14/20 11:00 90 19 149/87 (107) 97 NIV Bilevel 45.00 11/14/20 10:50 92 139/80 11/14/20 10:15 94 NIV Bilevel 60 11/14/20 10:12 92 28 94 45.00 11/14/20 10:07 96 11/14/20 10:00 94 26 139/80 (99) 94 NIV Bilevel 45.00 11/14/20 09:30 103 139/84 (102) 96 NIV Bilevel 45.00 11/14/20 07:05 94 NIV Bilevel 50 11/14/20 07:02 99 18 94 50.00 11/14/20 06:42 37.6 112 26 131/96 (108) 81 OxyMask I & O 11/15/20 07:00 Intake Total 3837.5 ml Output Total 1375 ml Balance 2462.5 ml Height & Weight Height: 5'7.00" Weight: 262lbs. 4.0oz. 118.958509uz; 42.00 BMI Method:Stated General Appearance: WD/WN, Mild Distress HEENT: PERRL/EOMI, Normal ENT Inspection, Pharynx Normal Neck: Full Range of Motion, Non Tender, Supple Respiratory: Accessory Muscle Use, Decreased Breath Sounds Cardiovascular: Regular Rate, Rhythm, No Edema, Normal Peripheral Pulses Capillary Refill: Less Than 3 Seconds Peripheral Pulses: 2+ Radial Pulses (R), 2+ Radial Pulses (L) Gastrointestinal: normal bowel sounds, non tender, soft Neurologic/Psychiatric: Alert Skin: Normal Color, Warm/Dry Lymphatic: No Adenopathy Results Lab Laboratory Tests 11/14/20 06:50 Assessment/Plan Assessment/Plan COVID -Tashaenlty on BiPAP -Vapotherm during the day -Decadron 6mg daily -CVP -- Pending -Remdesivir started -Oxygen PNA -Continue Vanc and Cefepime -Aguirre cultures pending Presumed PE secondary to elevated DDIMer and COVID dx -Lovenox theraputic dosing -will treat for total of 3mo with anticoagulation Metabolic lactic acidosis - resolved -Improving LEANDRO NELSON DO Nov 15, 2020 04:24
[2020-11-15] MEDS ORDERED: FAMOTIDINE 20 MG (PEPCID) TABLET PO PRN (04:30)
[2020-11-15] MEDS: LACTATED RINGERS 1,000 ML IV SCH (05:36)
[2020-11-15] MEDS: NOREPINEPHRINE 4 MG/250 ML 250 ML IV SCH ×3 (05:37→19:33)
[2020-11-15] MEDS: CEFEPIME 1,000 MG/SWFI 10 ML IV PUSH IV SCH ×8 (05:37→23:57)
[2020-11-15] MEDS: VANCOMYCIN 1,750 MG/NS 500 ML IVPB IV SCH ×4 (05:37→18:09)
[2020-11-15] MEDS ORDERED: hydrALAZINE (APESOLINE) 20 MG/ML VIAL ONE (05:51)
[2020-11-15] MEDS ORDERED: hydrALAZINE (APESOLINE) 20 MG/ML VIAL IV PRN (06:00)
[2020-11-15 06:15] LABS: BASOPHILS % (AUTO) 0 % (0-10); EOSINOPHILS % (AUTO) 0 % (0-10); HEMATOCRIT 35 % (35-52); HEMOGLOBIN 10.9 g/dL (11.5-16.0); LYMPHOCYTES # (AUTO) 0.7 10^3/uL (1.0-4.0); LYMPHOCYTES % (AUTO) 9 % (12-44); MEAN CORPUSCULAR HEMOGLOBIN 26 pg (25-34); MEAN CORPUSCULAR HGB CONC 31 g/dL (32-36); MEAN CORPUSCULAR VOLUME 84 fL (80-99); MEAN PLATELET VOLUME 10.4 fL (9.0-12.2); MONOCYTES # (AUTO) 0.5 10^3/uL (0.0-1.0); MONOCYTES % (AUTO) 7 % (0-12); NEUTROPHILS # (AUTO) 5.8 10^3/uL (1.8-7.8); NEUTROPHILS % (AUTO) 82 % (42-75); PLATELET COUNT 296 10^3/uL (130-400); WHITE BLOOD COUNT 7.1 10^3/uL (4.3-11.0)
[2020-11-15 06:24] LABS: CHLORIDE 105 MMOL/L (98-107); POTASSIUM 3.2 MMOL/L (3.6-5.0); SODIUM 141 MMOL/L (135-145)
[2020-11-15 06:26] LABS: CALCIUM 8.1 MG/DL (8.5-10.1); GLUCOSE 125 MG/DL (70-105)
[2020-11-15 06:28] LABS: CARBON DIOXIDE 25 MMOL/L (21-32)
[2020-11-15 06:30] LABS: CREATININE SERUM 0.66 MG/DL (0.60-1.30); GFR ESTIMATED > 60; PHOSPHORUS 2.5 MG/DL (2.3-4.7)
[2020-11-15 06:31] LABS: BUN/CREATININE RATIO 14
[2020-11-15 06:32] LABS: MAGNESIUM 1.8 MG/DL (1.6-2.4)
[2020-11-15] MEDS ORDERED: KCL 20 MEQ TAB (K-DUR) PO ONE ×2 (08:00→10:00)
[2020-11-15 08:14] VITALS: BP 154/96
[2020-11-15] MEDS: lisINopril 5 MG (PRINIVIL) TABLET PO SCH (08:15)
[2020-11-15] MEDS: FAMOTIDINE 20 MG (PEPCID) TABLET PO SCH ×2 (08:15→20:00)
[2020-11-15] MEDS: REMDESIVIR INJ 100 MG in NS (IVPB) 230 ML IV SCH (08:16)
[2020-11-15] MEDS: ENOXAPARIN 300 MG/3 ML (LOVENOX) MULTI-DOSE VIAL SQ SCH ×2 (08:22→20:00)
--- NOTE | 2020-11-15 08:28 | Diagnostic Imaging Report ---
Indication: COVID positive, shortness of air. Time of exam: 2:21 AM Correlation is made with prior chest one day earlier. Heart size stable. Bilateral pulmonary infiltrates, most extensive on the right persists and may be slightly increased in the degree of consolidation. There is no effusion or pneumothorax. Impression: Continued bilateral infiltrates, perhaps increased on the right when compared to examination one day earlier. Dictated by: Dictated on workstation # [id number]
--- NOTE | 2020-11-15 09:47 | NUR ---
PT ASSISTED TO PRONE POSITION. ONLY MANAGED CORDS, PATIENT ABLE TO TURN SELF. PT STATES SHE SLEEPS ON HER ABDOMEN AT HOME SO WILL BE COMFORTABLE. ENCOURAGE PATIENT TO LAY IN PRONE POSITION MUCH TOLERATED. SHE IS AGREEABLE TO THIS. PT WITH INCREASED RR TO MID 40'S AND INCREASED COUGH WHILE TURNING. PT ON VAPOTHERM AT 30L 75% WITH SATS REMAINING ABOVE 90% DURING TURN. BED MOVED TO VIEW TV AND IN A LOW POSITION WITH CALL LIGHT WITHIN REACH. PATIENT DENIED ANY FURTHER NEEDS AT THIS TIME. MONITORING CLOSELY.
[2020-11-15] MEDS: VASOPRESSIN INJECTION 20 UNIT in NS (IVPB) 100 ML IV SCH ×2 (11:25→19:33)
--- NOTE | 2020-11-15 12:15 | Progress Note - Hospitalist ---
Subjective HPI/CC On Admission Date Seen by Provider: Nov 15, 2020 Time Seen by Provider: 11:00 CC: Dyspnea HPI: This is a 75yoWF with h/o severe O2 dependent COPD who presented to the ER with increased dyspnea with hypoxia. Patient was dx with COVID. Protocol meds started and patient required IVF and biPAP in ER and is doing better now and trying to convert over to Vapotherm. Unable to speak due to biPAP. Subjective/Events-last exam Patient was on bipap last night and on Vapotherm today Coarse BS noted O2 sats noted Monitor closely in ICU Review of Systems Pulmonary: Dyspnea, Cough Focused Exam Lactate Level 11/14/20 06:50: Lactic Acid Level 2.34*H 11/14/20 09:05: Lactic Acid Level 2.68*H 11/14/20 11:15: Lactic Acid Level 1.79 Time of Focused Exam: 08:32 Objective Exam Vital Signs Vital Signs Date Time Temp Pulse Resp B/P (MAP) Pulse Ox O2 Delivery O2 Flow Rate FiO2 11/15/20 18:00 78 30 143/93 (110) 92 Vapotherm 30.00 65.00 11/15/20 15:54 36.2 11/15/20 15:35 75 Capillary Refill : Less Than 3 Seconds General Appearance: WD/WN, Anxious, Chronically ill, Mild Distress Respiratory: Crackles, Decreased Breath Sounds, Rales, Wheezing Cardiovascular: Regular Rate, Rhythm Neurologic/Psychiatric: Alert, Oriented x3, No Motor/Sensory Deficits, Normal Mood/Affect Results/Procedures Lab Laboratory Tests 11/15/20 05:20 Patient resulted labs reviewed. Assessment/Plan Assessment and Plan Assess & Plan/Chief Complaint Assessment: COVID-19 PNA Severe baseline COPD O2 dependence HTN Plan: ICU BiPAP 11/15/20: High risk for decompensation Diagnosis/Problems Diagnosis/Problems (1) COVID-19 Status: Acute (2) Acute respiratory failure Status: Acute Qualifiers: Respiratory failure complication: hypoxia Qualified Codes: J96.01 - Acute respiratory failure with hypoxia Clinical Quality Measures DVT/VTE Risk/Contraindication: Risk Factor Score Per Nursin RFS Level Per Nursing on Admit: 4+=Very High STACIE TRACEY DO Nov 15, 2020 12:15
--- NOTE | 2020-11-15 13:33 | NUR ---
SPOKE WITH PATIENTS DAUGHTER AT NUMBER PROVIDED. UPDATED ON PATIENTS CONDITION AFTER PASSWORD VERIFIED. NO FURTHER QUESTIONS FROM FAMILY VOICED. FAMILY WILL CALL PATIENTS CELL PHONE LATER TODAY.
--- NOTE | 2020-11-15 17:55 | NUR ---
SPOKE WITH TELE ICU PROVIDER REGARDING ELEVATED VANC TROUGH. ORDER RECEIVED TO GIVE ORDERED DOSE OF VANC.
[2020-11-15 21:58] VITALS: BP 130/70
[2020-11-16] MEDS: NOREPINEPHRINE 4 MG/250 ML 250 ML IV SCH ×5 (00:06→23:40)
[2020-11-16 01:24] VITALS: BP 130/70
[2020-11-16] MEDS: RT-ALBUTEROL INHALER HFA (VENTOLIN HFA) 18 GM IH SCH ×6 (01:24→20:58)
[2020-11-16] MEDS: VASOPRESSIN INJECTION 20 UNIT in NS (IVPB) 100 ML IV SCH ×3 (03:22→21:14)
[2020-11-16] MEDS: guaiFENesin/CODEINE (ROBITUSSIN AC) 10ML UDC PO PRN ×5 (04:11→20:42)
[2020-11-16 05:20] LABS: BASOPHILS % (AUTO) 0 % (0-10); EOSINOPHILS % (AUTO) 0 % (0-10); HEMATOCRIT 37 % (35-52); HEMOGLOBIN 11.7 g/dL (11.5-16.0); LYMPHOCYTES % (AUTO) 12 % (12-44); MEAN CORPUSCULAR HEMOGLOBIN 27 pg (25-34); MEAN CORPUSCULAR HGB CONC 32 g/dL (32-36); MEAN CORPUSCULAR VOLUME 85 fL (80-99); MEAN PLATELET VOLUME 10.1 fL (9.0-12.2); MONOCYTES # (AUTO) 0.5 10^3/uL (0.0-1.0); MONOCYTES % (AUTO) 5 % (0-12); NEUTROPHILS # (AUTO) 7.3 10^3/uL (1.8-7.8); NEUTROPHILS % (AUTO) 82 % (42-75); PLATELET COUNT 334 10^3/uL (130-400)
[2020-11-16 05:34] LABS: CHLORIDE 106 MMOL/L (98-107); POTASSIUM 3.7 MMOL/L (3.6-5.0); SODIUM 142 MMOL/L (135-145)
[2020-11-16 05:36] LABS: CALCIUM 8.3 MG/DL (8.5-10.1); GLUCOSE 120 MG/DL (70-105)
[2020-11-16 05:38] LABS: CARBON DIOXIDE 27 MMOL/L (21-32)
[2020-11-16 05:40] LABS: CREATININE SERUM 0.74 MG/DL (0.60-1.30); GFR ESTIMATED > 60
[2020-11-16 05:41] LABS: BUN/CREATININE RATIO 18
[2020-11-16 05:42] LABS: MAGNESIUM 1.9 MG/DL (1.6-2.4)
[2020-11-16] MEDS: POTASSIUM CL 10MEQ/50ML IVPB 50 ML IV SCH (05:47)
[2020-11-16] MEDS: MAGNESIUM 1 GM/100 ML IVPB 100 ML IV SCH (05:48)
[2020-11-16] MEDS: KCL 20 MEQ TAB (K-DUR) PO SCH (05:48)
[2020-11-16] MEDS: CEFEPIME 1,000 MG/SWFI 10 ML IV PUSH IV SCH ×6 (05:53→17:49)
[2020-11-16] MEDS: LACTATED RINGERS 1,000 ML IV SCH (05:58)
[2020-11-16] MEDS: VANCOMYCIN 1,750 MG/NS 500 ML IVPB IV SCH ×4 (06:00→17:49)
--- NOTE | 2020-11-16 07:26 | Progress Note - Hospitalist ---
Subjective HPI/CC On Admission Date Seen by Provider: Nov 16, 2020 Time Seen by Provider: 11:00 CC: Dyspnea HPI: This is a 75yoWF with h/o severe O2 dependent COPD who presented to the ER with increased dyspnea with hypoxia. Patient was dx with COVID. Protocol meds started and patient required IVF and biPAP in ER and is doing better now and trying to convert over to Vapotherm. Unable to speak due to biPAP. Subjective/Events-last exam Patient about the same AECOPD still severe Remains in ICU High risk for intubation Checked meds and labs Review of Systems Pulmonary: Dyspnea, Cough Focused Exam Lactate Level 11/14/20 09:05: Lactic Acid Level 2.68*H 11/14/20 11:15: Lactic Acid Level 1.79 Time of Focused Exam: 08:32 Objective Exam Vital Signs Vital Signs Date Time Temp Pulse Resp B/P (MAP) Pulse Ox O2 Delivery O2 Flow Rate FiO2 11/17/20 06:49 90 Vapotherm 30.00 65 11/17/20 06:00 80 22 125/89 (101) 11/17/20 00:00 36.2 Capillary Refill : Less Than 3 Seconds General Appearance: No Apparent Distress, WD/WN, Chronically ill Respiratory: Crackles, Decreased Breath Sounds, Rales, Wheezing Cardiovascular: Regular Rate, Rhythm, No Edema, No Gallop, No JVD, No Murmur, Normal Peripheral Pulses Neurologic/Psychiatric: Alert, Oriented x3, No Motor/Sensory Deficits, Normal Mood/Affect Results/Procedures Lab Laboratory Tests 11/17/20 04:18 Patient resulted labs reviewed. Assessment/Plan Assessment and Plan Assess & Plan/Chief Complaint Assessment: COVID-19 PNA Severe baseline COPD O2 dependence HTN Plan: ICU BiPAP 11/15/20: High risk for decompensation 11/16/20: Remain in ICU High risk for decompensation Diagnosis/Problems Diagnosis/Problems (1) COVID-19 Status: Acute (2) Acute respiratory failure Status: Acute Qualifiers: Respiratory failure complication: hypoxia Qualified Codes: J96.01 - Acute respiratory failure with hypoxia Clinical Quality Measures DVT/VTE Risk/Contraindication: Risk Factor Score Per Nursin RFS Level Per Nursing on Admit: 4+=Very High STACIE TRACEY DO Nov 16, 2020 07:26
[2020-11-16] MEDS: ENOXAPARIN 300 MG/3 ML (LOVENOX) MULTI-DOSE VIAL SQ SCH ×2 (07:48→20:42)
--- NOTE | 2020-11-16 07:51 | Diagnostic Imaging Report ---
INDICATION: COVID positive, shortness of air. TECHNIQUE: Single view chest 2:41 AM. CORRELATION STUDY: 11/15/2020 FINDINGS: Extensive bilateral mixed alveolar interstitial infiltrates throughout both lung beltrán persisting. Given differences in technique, generally stable. Heart size remains enlarged. Mediastinum unchanged. IMPRESSION: 1. Extensive bilateral pulmonary infiltrates overall appear generally stable from prior. Dictated by: Dictated on workstation # [id number]
[2020-11-16] MEDS: FAMOTIDINE 20 MG (PEPCID) TABLET PO SCH ×2 (07:56→20:42)
[2020-11-16] MEDS: lisINopril 5 MG (PRINIVIL) TABLET PO SCH (07:56)
[2020-11-16] MEDS: REMDESIVIR INJ 100 MG in NS (IVPB) 230 ML IV SCH (09:25)
[2020-11-16] MEDS ORDERED: SOD CHL GEL 0.5 OZ (AYR SALINE NASAL GEL) TUBE TOP PRN (12:15)
[2020-11-16] MEDS ORDERED: SALINE NASAL SPRAY (OCEAN) 45 ML BTL PRN (12:15)
--- NOTE | 2020-11-16 13:55 | NUR ---
SPOKE WITH PATIENTS DAUGHTER AFTER VERIFYING PASSWORD. UPDATED ON PATIENT CONDITION AND ANSWERED ALL QUESTIONS.
[2020-11-16 20:58] VITALS: BP 154/86
[2020-11-17] MEDS: guaiFENesin/CODEINE (ROBITUSSIN AC) 10ML UDC PO PRN ×3 (01:24→18:30)
[2020-11-17 02:01] VITALS: BP 154/86
[2020-11-17] MEDS: RT-ALBUTEROL INHALER HFA (VENTOLIN HFA) 18 GM IH SCH ×5 (02:01→19:27)
[2020-11-17] MEDS: VASOPRESSIN INJECTION 20 UNIT in NS (IVPB) 100 ML IV SCH ×3 (04:26→21:03)
[2020-11-17] MEDS: NOREPINEPHRINE 4 MG/250 ML 250 ML IV SCH ×4 (04:26→21:03)
[2020-11-17 04:50] LABS: BASOPHILS % (AUTO) 0 % (0-10); EOSINOPHILS % (AUTO) 0 % (0-10); HEMATOCRIT 38 % (35-52); HEMOGLOBIN 11.7 g/dL (11.5-16.0); LYMPHOCYTES # (AUTO) 1.1 10^3/uL (1.0-4.0); LYMPHOCYTES % (AUTO) 12 % (12-44); MEAN CORPUSCULAR HEMOGLOBIN 26 pg (25-34); MEAN CORPUSCULAR HGB CONC 31 g/dL (32-36); MEAN CORPUSCULAR VOLUME 85 fL (80-99); MEAN PLATELET VOLUME 10.6 fL (9.0-12.2); MONOCYTES # (AUTO) 0.5 10^3/uL (0.0-1.0); MONOCYTES % (AUTO) 5 % (0-12); NEUTROPHILS # (AUTO) 7.4 10^3/uL (1.8-7.8); NEUTROPHILS % (AUTO) 79 % (42-75); PLATELET COUNT 324 10^3/uL (130-400); WHITE BLOOD COUNT 9.3 10^3/uL (4.3-11.0)
[2020-11-17 05:04] LABS: CHLORIDE 103 MMOL/L (98-107); POTASSIUM 4.2 MMOL/L (3.6-5.0); SODIUM 140 MMOL/L (135-145)
[2020-11-17 05:05] LABS: CALCIUM 8.1 MG/DL (8.5-10.1); GLUCOSE 107 MG/DL (70-105)
[2020-11-17 05:07] LABS: CARBON DIOXIDE 27 MMOL/L (21-32)
[2020-11-17 05:09] LABS: CREATININE SERUM 0.77 MG/DL (0.60-1.30); GFR ESTIMATED > 60; PHOSPHORUS 3.4 MG/DL (2.3-4.7)
[2020-11-17 05:10] LABS: BUN/CREATININE RATIO 22
--- NOTE | 2020-11-17 05:58 | Diagnostic Imaging Report ---
EXAMINATION: Portable erect AP chest at 1:14 AM INDICATION: Respiratory distress The heart is stable when compared to the prior exam of 11/16/2020. The diffuse alveolar/interstitial pulmonary infiltrates involving both lungs seen previously are again evident and essentially no different. The mediastinum is not widened. The osseous structures are intact. IMPRESSION: Stable chest. There has been no adverse change since the prior exam. Dictated by: Dictated on workstation # [id number]
[2020-11-17] MEDS: CEFEPIME 1,000 MG/SWFI 10 ML IV PUSH IV SCH ×8 (06:01→18:21)
[2020-11-17] MEDS: LACTATED RINGERS 1,000 ML IV SCH (06:01)
[2020-11-17] MEDS: MAGNESIUM 1 GM/100 ML IVPB 100 ML IV SCH (06:19)
[2020-11-17] MEDS: POTASSIUM CL 10MEQ/50ML IVPB 50 ML IV SCH (06:19)
[2020-11-17] MEDS: KCL 20 MEQ TAB (K-DUR) PO SCH (06:20)
[2020-11-17] MEDS: lisINopril 5 MG (PRINIVIL) TABLET PO SCH (08:14)
[2020-11-17] MEDS: FAMOTIDINE 20 MG (PEPCID) TABLET PO SCH ×2 (08:14→21:03)
[2020-11-17] MEDS: ENOXAPARIN 300 MG/3 ML (LOVENOX) MULTI-DOSE VIAL SQ SCH ×2 (08:14→21:03)
[2020-11-17] MEDS: REMDESIVIR INJ 100 MG in NS (IVPB) 230 ML IV SCH (08:18)
--- NOTE | 2020-11-17 11:43 | Progress Note - Hospitalist ---
Subjective HPI/CC On Admission Date Seen by Provider: Nov 17, 2020 Time Seen by Provider: 12:00 CC: Dyspnea HPI: This is a 75yoWF with h/o severe O2 dependent COPD who presented to the ER with increased dyspnea with hypoxia. Patient was dx with COVID. Protocol meds started and patient required IVF and biPAP in ER and is doing better now and trying to convert over to Vapotherm. Unable to speak due to biPAP. Subjective/Events-last exam Patient doing about the same No increased O2 Vapotherm day and biPAP at night NO changes Review of Systems Pulmonary: Dyspnea, Cough Focused Exam Time of Focused Exam: 08:32 Objective Exam Vital Signs Vital Signs Date Time Temp Pulse Resp B/P (MAP) Pulse Ox O2 Delivery O2 Flow Rate FiO2 11/17/20 19:36 71 24 94 60.00 11/17/20 19:31 36.0 11/17/20 19:27 Vapotherm 60 11/17/20 18:00 107/42 (63) Capillary Refill : Less Than 3 Seconds General Appearance: No Apparent Distress, WD/WN, Chronically ill Respiratory: Chest Non Tender, No Respiratory Distress, Accessory Muscle Use, Crackles, Decreased Breath Sounds, Rales, Wheezing Cardiovascular: Regular Rate, Rhythm, No Edema, No Gallop, No JVD, No Murmur, Normal Peripheral Pulses Neurologic/Psychiatric: Alert, Oriented x3, No Motor/Sensory Deficits, Normal Mood/Affect Results/Procedures Lab Laboratory Tests 11/17/20 04:18 Patient resulted labs reviewed. Assessment/Plan Assessment and Plan Assess & Plan/Chief Complaint Assessment: COVID-19 PNA Severe baseline COPD O2 dependence HTN Plan: ICU BiPAP 11/15/20: High risk for decompensation 11/16/20: Remain in ICU High risk for decompensation 11/17/20: Monitor closely Increased risk for intubation Diagnosis/Problems Diagnosis/Problems (1) COVID-19 Status: Acute (2) Acute respiratory failure Status: Acute Qualifiers: Respiratory failure complication: hypoxia Qualified Codes: J96.01 - Acute respiratory failure with hypoxia Clinical Quality Measures DVT/VTE Risk/Contraindication: Risk Factor Score Per Nursin RFS Level Per Nursing on Admit: 4+=Very High STACIE TRACEY DO Nov 17, 2020 11:43
--- NOTE | 2020-11-17 14:30 | NUR ---
SPOKE WITH PATIENT DAUGHTER AFTER VERIFYING PASSWORD. UPDATED ON PATIENT CONDITION. ALL QUESTIONS ANSWERED AT THIS TIME.
--- NOTE | 2020-11-17 14:58 | NUR ---
PATIENT ASSISTED TO CHAIR WITHOUT DIFFICULTIES. SBA ONLY. VAPOTHERM AT 30L 90% TO RECOVER. SATS 90%. WILL TITRATE DOWN TOLERATED.
[2020-11-17 19:36] VITALS: BP 127/81
--- NOTE | 2020-11-17 21:03 | NUR ---
COMPUTER IN ROOM NOT SCANNING PROPERLY
[2020-11-18 00:10] VITALS: BP 135/98
[2020-11-18] MEDS: RT-ALBUTEROL INHALER HFA (VENTOLIN HFA) 18 GM IH SCH ×7 (00:10→22:29)
[2020-11-18] MEDS: CEFEPIME 1,000 MG/SWFI 10 ML IV PUSH IV SCH ×8 (00:19→19:02)
[2020-11-18] MEDS: guaiFENesin/CODEINE (ROBITUSSIN AC) 10ML UDC PO PRN ×3 (03:24→20:09)
[2020-11-18 03:39] LABS: BASOPHILS % (AUTO) 0 % (0-10); EOSINOPHILS # (AUTO) 0.1 10^3/uL (0.0-0.3); EOSINOPHILS % (AUTO) 1 % (0-10); HEMATOCRIT 39 % (35-52); LYMPHOCYTES # (AUTO) 1.4 10^3/uL (1.0-4.0); LYMPHOCYTES % (AUTO) 13 % (12-44); MEAN CORPUSCULAR HEMOGLOBIN 26 pg (25-34); MEAN CORPUSCULAR HGB CONC 31 g/dL (32-36); MEAN CORPUSCULAR VOLUME 84 fL (80-99); MEAN PLATELET VOLUME 10.3 fL (9.0-12.2); MONOCYTES # (AUTO) 0.5 10^3/uL (0.0-1.0); MONOCYTES % (AUTO) 5 % (0-12); NEUTROPHILS # (AUTO) 8.5 10^3/uL (1.8-7.8); NEUTROPHILS % (AUTO) 77 % (42-75); PLATELET COUNT 392 10^3/uL (130-400); WHITE BLOOD COUNT 11.1 10^3/uL (4.3-11.0)
[2020-11-18 04:01] LABS: CHLORIDE 103 MMOL/L (98-107); POTASSIUM 3.9 MMOL/L (3.6-5.0); SODIUM 139 MMOL/L (135-145)
[2020-11-18 04:02] LABS: CALCIUM 8.1 MG/DL (8.5-10.1); GLUCOSE 111 MG/DL (70-105)
[2020-11-18 04:04] LABS: CARBON DIOXIDE 25 MMOL/L (21-32)
[2020-11-18 04:06] LABS: CREATININE SERUM 0.73 MG/DL (0.60-1.30); GFR ESTIMATED > 60; PHOSPHORUS 3.5 MG/DL (2.3-4.7)
[2020-11-18 04:07] LABS: BUN/CREATININE RATIO 23
[2020-11-18 04:09] LABS: MAGNESIUM 2.1 MG/DL (1.6-2.4)
[2020-11-18] MEDS: NOREPINEPHRINE 4 MG/250 ML 250 ML IV SCH (04:45)
--- NOTE | 2020-11-18 05:26 | Pulmonary Progress Note ---
Subjective Time Seen by a Provider: 05:25 Subjective/Events-last exam no complications noted. Sepsis Event Evaluation Height, Weight, BMI Height: 5'7.00" Weight: 262lbs. 4.0oz. 118.727575ps; 42.00 BMI Method:Stated Focused Exam Time of Focused Exam: 08:32 Exam Exam Vital Signs Date Time Temp Pulse Resp B/P (MAP) Pulse Ox O2 Delivery O2 Flow Rate FiO2 11/18/20 02:57 88 T Piece 30.00 60 11/18/20 01:00 60 11/18/20 00:10 64 22 92 50.00 11/18/20 00:00 36.2 11/17/20 23:00 72 34 155/92 (102) 91 NIV Bilevel 50.00 11/17/20 22:00 61 20 134/66 (76) 93 NIV Bilevel 50.00 11/17/20 21:00 71 20 139/76 (103) 89 NIV Bilevel 50.00 11/17/20 20:00 86 23 149/83 (109) 85 NIV Bilevel 50.00 11/17/20 20:00 93 NIV Bilevel 50 11/17/20 19:36 71 24 94 60.00 11/17/20 19:31 36.0 11/17/20 19:27 91 Vapotherm 30.00 60 11/17/20 19:00 72 11/17/20 19:00 72 31 127/81 (104) 92 Vapotherm 30.00 60.00 11/17/20 18:00 81 26 107/42 (63) 91 Vapotherm 30.00 60.00 11/17/20 16:29 30.00 60.00 11/17/20 16:00 78 21 143/100 (114) 96 Vapotherm 30.00 65.00 11/17/20 15:42 35.9 11/17/20 15:00 84 23 138/77 (97) 94 Vapotherm 30.00 65.00 11/17/20 14:15 95 Vapotherm 30.00 65 11/17/20 14:00 79 31 140/74 (96) 96 Vapotherm 30.00 65.00 11/17/20 13:00 84 138/76 (96) 95 Vapotherm 30.00 65.00 11/17/20 12:23 75 11/17/20 12:00 71 26 148/79 (102) 97 Vapotherm 30.00 65.00 11/17/20 11:00 98 148/94 (112) 92 Vapotherm 30.00 65.00 11/17/20 10:45 94 Vapotherm 30.00 55 11/17/20 10:00 79 27 140/80 (100) 92 Vapotherm 30.00 65.00 11/17/20 09:53 36.4 11/17/20 09:00 94 34 130/79 (96) 90 Vapotherm 30.00 65.00 11/17/20 08:20 90 Vapotherm 30.00 65 11/17/20 08:00 82 17 120/94 (103) 92 Vapotherm 30.00 65.00 11/17/20 07:00 75 11/17/20 07:00 75 25 133/81 (98) 91 Vapotherm 30.00 65.00 11/17/20 06:49 90 Vapotherm 30.00 65 11/17/20 06:20 Vapotherm 30.00 60.00 11/17/20 06:00 80 22 125/89 (101) 92 NIV Bilevel 60.00 I & O 11/18/20 07:00 Intake Total 1790 ml Output Total 1525 ml Balance 265 ml Height & Weight Height: 5'7.00" Weight: 262lbs. 4.0oz. 118.022100ml; 42.00 BMI Method:Stated General Appearance: No Apparent Distress, WD/WN, Chronically ill HEENT: PERRL/EOMI, Normal ENT Inspection, Pharynx Normal Neck: Full Range of Motion, Non Tender, Supple Respiratory: Chest Non Tender, No Respiratory Distress, Accessory Muscle Use, C rackles, Decreased Breath Sounds, Rales, Wheezing Cardiovascular: Regular Rate, Rhythm, No Edema, No Gallop, No JVD, No Murmur, Normal Peripheral Pulses Capillary Refill: Less Than 3 Seconds Peripheral Pulses: 2+ Radial Pulses (R), 2+ Radial Pulses (L) Gastrointestinal: normal bowel sounds, non tender, soft Extremity: Normal Capillary Refill, Normal Inspection, Normal Range of Motion, Non Tender, No Calf Tenderness, No Pedal Edema Neurologic/Psychiatric: Alert, Oriented x3, No Motor/Sensory Deficits, Normal Mood/Affect Skin: Normal Color, Warm/Dry Lymphatic: No Adenopathy Results Lab Laboratory Tests 11/17/20 04:18 11/18/20 02:52 11/18/20 03:27 Assessment/Plan Assessment/Plan COVID -Tashaenlty on Vapotherm 60% -Decadron 6mg daily -CVP -Remdesivir started -Oxygen PNA -Continue Cefepime Presumed PE secondary to elevated DDIMer and COVID dx -Lovenox theraputic dosing -will treat for total of 3mo with anticoagulation Metabolic lactic acidosis - resolved LEANDRO NELSON DO Nov 18, 2020 05:26
[2020-11-18] MEDS ORDERED: FUROSEMIDE 40 MG/4 ML INJ (LASIX) IVP ONE (05:30)
[2020-11-18] MEDS: MAGNESIUM 1 GM/100 ML IVPB 100 ML IV SCH (05:31)
[2020-11-18] MEDS: POTASSIUM CL 10MEQ/50ML IVPB 50 ML IV SCH (05:31)
[2020-11-18] MEDS: KCL 20 MEQ TAB (K-DUR) PO SCH (05:32)
--- NOTE | 2020-11-18 07:03 | Diagnostic Imaging Report ---
INDICATION: Covid positive, shortness of breath. COMPARISON: 11/17/2020. FINDINGS: Single view of the chest demonstrates unchanged bilateral pulmonary infiltrates. The heart is enlarged. There is no pneumothorax or large effusion. Osseous structures stable. IMPRESSION: Unchanged bilateral pulmonary infiltrates. Dictated by: Dictated on workstation # [id number]
[2020-11-18] MEDS ORDERED: KCL 20 MEQ TAB (K-DUR) PO ONE (08:00)
[2020-11-18] MEDS: FAMOTIDINE 20 MG (PEPCID) TABLET PO SCH ×2 (09:54→19:58)
[2020-11-18] MEDS: lisINopril 5 MG (PRINIVIL) TABLET PO SCH (09:54)
[2020-11-18] MEDS: REMDESIVIR INJ 100 MG in NS (IVPB) 230 ML IV SCH (09:54)
[2020-11-18] MEDS: ENOXAPARIN 300 MG/3 ML (LOVENOX) MULTI-DOSE VIAL SQ SCH ×2 (10:14→19:58)
[2020-11-18 22:29] VITALS: BP 113/77
[2020-11-19] MEDS: CEFEPIME 1,000 MG/SWFI 10 ML IV PUSH IV SCH ×4 (00:35→06:24)
[2020-11-19 02:02] VITALS: BP 122/81
[2020-11-19] MEDS: RT-ALBUTEROL INHALER HFA (VENTOLIN HFA) 18 GM IH SCH ×6 (02:02→21:52)
[2020-11-19 02:14] LABS: BASOPHILS % (AUTO) 0 % (0-10); CHLORIDE 102 MMOL/L (98-107); EOSINOPHILS # (AUTO) 0.1 10^3/uL (0.0-0.3); EOSINOPHILS % (AUTO) 1 % (0-10); HEMATOCRIT 38 % (35-52); HEMOGLOBIN 11.8 g/dL (11.5-16.0); LYMPHOCYTES # (AUTO) 1.1 10^3/uL (1.0-4.0); LYMPHOCYTES % (AUTO) 11 % (12-44); MEAN CORPUSCULAR HEMOGLOBIN 26 pg (25-34); MEAN CORPUSCULAR HGB CONC 31 g/dL (32-36); MEAN CORPUSCULAR VOLUME 85 fL (80-99); MONOCYTES # (AUTO) 0.5 10^3/uL (0.0-1.0); MONOCYTES % (AUTO) 5 % (0-12); NEUTROPHILS # (AUTO) 7.9 10^3/uL (1.8-7.8); NEUTROPHILS % (AUTO) 79 % (42-75); PLATELET COUNT 331 10^3/uL (130-400); POTASSIUM 4.4 MMOL/L (3.6-5.0); SODIUM 140 MMOL/L (135-145); WHITE BLOOD COUNT 9.9 10^3/uL (4.3-11.0)
[2020-11-19 02:14] LABS: ABG OXYGEN SATURATION 95 % (94-100); ABG PCO2 47 MMHG (35-45); ABG PH 7.36 (7.37-7.43); ABG PO2 80 MMHG (79-93); ABG TCO2 27.6 MMOL/L (21.0-31.0); ALLENS TEST POSITIVE; INSPIRED O2 70% BIPAP; VENTILATOR NO
[2020-11-19 02:15] LABS: PATIENT TEMP 35.3
[2020-11-19 02:15] LABS: GLUCOSE 145 MG/DL (70-105)
[2020-11-19 02:17] LABS: CARBON DIOXIDE 28 MMOL/L (21-32)
[2020-11-19 02:19] LABS: CREATININE SERUM 0.74 MG/DL (0.60-1.30); GFR ESTIMATED > 60; PHOSPHORUS 3.9 MG/DL (2.3-4.7)
[2020-11-19 02:20] LABS: BUN/CREATININE RATIO 27
[2020-11-19 02:22] LABS: MAGNESIUM 2.2 MG/DL (1.6-2.4)
[2020-11-19] MEDS: MAGNESIUM 1 GM/100 ML IVPB 100 ML IV SCH (04:47)
[2020-11-19] MEDS: guaiFENesin/CODEINE (ROBITUSSIN AC) 10ML UDC PO PRN ×3 (04:47→21:32)
[2020-11-19] MEDS: POTASSIUM CL 10MEQ/50ML IVPB 50 ML IV SCH (04:47)
[2020-11-19] MEDS: KCL 20 MEQ TAB (K-DUR) PO SCH (04:47)
[2020-11-19] MEDS ORDERED: FUROSEMIDE 40 MG/4 ML INJ (LASIX) IVP ONE (05:45)
--- NOTE | 2020-11-19 05:45 | Pulmonary Progress Note ---
Subjective Time Seen by a Provider: 05:40 Subjective/Events-last exam Pt is requiring 80% Vapotherm currently Sepsis Event Evaluation Height, Weight, BMI Height: 5'7.00" Weight: 262lbs. 4.0oz. 118.607324lk; 42.00 BMI Method:Stated Focused Exam Time of Focused Exam: 08:32 Exam Exam Vital Signs Date Time Temp Pulse Resp B/P (MAP) Pulse Ox O2 Delivery O2 Flow Rate FiO2 11/19/20 04:50 90 Vapotherm 30.00 80.00 11/19/20 04:37 35.9 70 30 135/99 (111) 94 NIV Bilevel 70.00 11/19/20 02:02 64 24 90 70.00 11/19/20 01:00 65 11/19/20 00:36 35.9 69 19 122/81 (95) 93 NIV Bilevel 70.00 11/18/20 22:29 71 24 90 70.00 11/18/20 22:15 90 NIV Bilevel 70.00 11/18/20 21:45 87 NIV Bilevel 60.00 11/18/20 20:00 91 Vapotherm 30.00 70 11/18/20 19:59 36.4 78 20 113/77 (89) 91 Vapotherm 30.00 70.00 11/18/20 19:00 86 11/18/20 18:37 94 Vapotherm 30.00 70 11/18/20 15:23 36.6 11/18/20 14:48 94 Vapotherm 30.00 70 11/18/20 13:00 98 23 104/85 (91) 91 Vapotherm 30.00 70.00 11/18/20 12:51 89 11/18/20 12:05 36.6 11/18/20 10:22 92 Vapotherm 30.00 70 11/18/20 09:00 93 33 91 Vapotherm 30.00 60.00 11/18/20 08:00 105 28 80 Vapotherm 30.00 60.00 11/18/20 08:00 93 Vapotherm 30.00 70 11/18/20 07:23 36.0 11/18/20 07:00 76 37 103/85 (91) 93 Vapotherm 30.00 60.00 11/18/20 06:39 92 Vapotherm 30.00 70 11/18/20 06:35 100 11/18/20 06:00 Vapotherm 30.00 60.00 11/18/20 06:00 74 26 136/85 (102) 94 Vapotherm 30.00 60.00 I & O 11/19/20 07:00 Intake Total 1830 ml Output Total 2340 ml Balance -510 ml Height & Weight Height: 5'7.00" Weight: 262lbs. 4.0oz. 118.784345re; 42.00 BMI Method:Stated General Appearance: No Apparent Distress, WD/WN, Chronically ill HEENT: PERRL/EOMI, Normal ENT Inspection, Pharynx Normal Neck: Full Range of Motion, Non Tender, Supple Respiratory: Chest Non Tender, No Respiratory Distress, Accessory Muscle Use, Crackles, Decreased Breath Sounds, Rales, Wheezing Cardiovascular: Regular Rate, Rhythm, No Edema, No Gallop, No JVD, No Murmur, Normal Peripheral Pulses Capillary Refill: Less Than 3 Seconds Peripheral Pulses: 2+ Radial Pulses (R), 2+ Radial Pulses (L) Gastrointestinal: normal bowel sounds, non tender, soft Extremity: Normal Capillary Refill, Normal Inspection, Normal Range of Motion, Non Tender, No Calf Tenderness, No Pedal Edema Neurologic/Psychiatric: Alert, Oriented x3, No Motor/Sensory Deficits, Normal Mood/Affect Skin: Normal Color, Warm/Dry Lymphatic: No Adenopathy Results Lab Laboratory Tests 11/18/20 02:52 11/18/20 03:27 11/19/20 01:18 Assessment/Plan Assessment/Plan COVID -Currenlty on Vapotherm 80% -BiPAP PRN -Decadron 6mg daily -CVP -Remdesivir started -Oxygen -Give Lasix 40mg IV x 1 -Check echo PNA -Continue Cefepime Presumed PE secondary to elevated DDIMer and COVID dx -Lovenox theraputic dosing -will treat for total of 3mo with anticoagulation Metabolic lactic acidosis - resolved LEANDRO NELSON DO Nov 19, 2020 05:45
--- NOTE | 2020-11-19 07:51 | Diagnostic Imaging Report ---
INDICATION: Dyspnea. EXAMINATION: Chest 11/19/2020. COMPARISON: 11/18/2020 FINDINGS: The heart is stable. Pulmonary vasculature appears congested. There are increased interstitial and airspace opacities throughout the mid and lower lung similar to previous imaging. No pneumothorax or significant effusions. There is a new left PICC line with the tip in the proximal SVC. IMPRESSION: 1. Interval placement of PICC line as above. Remaining chest stable. Dictated by: Dictated on workstation # [id number]
[2020-11-19] MEDS: lisINopril 5 MG (PRINIVIL) TABLET PO SCH (10:15)
[2020-11-19] MEDS: ENOXAPARIN 300 MG/3 ML (LOVENOX) MULTI-DOSE VIAL SQ SCH ×2 (10:15→21:27)
[2020-11-19] MEDS: FAMOTIDINE 20 MG (PEPCID) TABLET PO SCH ×2 (10:16→21:27)
[2020-11-19] MEDS: CEFEPIME INJECTION 1,000 MG in WATER (STERILE) FOR INJECTION 10 ML IV SCH ×3 (13:15→23:24)
[2020-11-19 21:52] VITALS: BP 119/54
[2020-11-20 03:29] LABS: BASOPHILS % (AUTO) 0 % (0-10); EOSINOPHILS % (AUTO) 0 % (0-10); HEMATOCRIT 38 % (35-52); LYMPHOCYTES # (AUTO) 1.1 10^3/uL (1.0-4.0); LYMPHOCYTES % (AUTO) 10 % (12-44); MEAN CORPUSCULAR HEMOGLOBIN 27 pg (25-34); MEAN CORPUSCULAR HGB CONC 31 g/dL (32-36); MEAN CORPUSCULAR VOLUME 85 fL (80-99); MEAN PLATELET VOLUME 10.3 fL (9.0-12.2); MONOCYTES # (AUTO) 0.5 10^3/uL (0.0-1.0); MONOCYTES % (AUTO) 5 % (0-12); NEUTROPHILS # (AUTO) 9.3 10^3/uL (1.8-7.8); NEUTROPHILS % (AUTO) 82 % (42-75); PLATELET COUNT 345 10^3/uL (130-400); WHITE BLOOD COUNT 11.3 10^3/uL (4.3-11.0)
[2020-11-20 03:39] LABS: CHLORIDE 101 MMOL/L (98-107); POTASSIUM 4.8 MMOL/L (3.6-5.0); SODIUM 136 MMOL/L (135-145)
[2020-11-20 03:40] LABS: CALCIUM 8.3 MG/DL (8.5-10.1); GLUCOSE 155 MG/DL (70-105)
[2020-11-20 03:42] LABS: CARBON DIOXIDE 27 MMOL/L (21-32)
[2020-11-20 03:44] LABS: CREATININE SERUM 0.83 MG/DL (0.60-1.30); GFR ESTIMATED > 60; PHOSPHORUS 4.1 MG/DL (2.3-4.7)
[2020-11-20 03:45] LABS: BUN/CREATININE RATIO 29
[2020-11-20 03:47] LABS: MAGNESIUM 2.4 MG/DL (1.6-2.4)
[2020-11-20] MEDS ORDERED: CEFEPIME INJECTION 1,000 MG in WATER (STERILE) FOR INJECTION 10 ML IV SCH (04:45)
[2020-11-20] MEDS ORDERED: FUROSEMIDE 40 MG/4 ML INJ (LASIX) IVP ONE (04:45)
--- NOTE | 2020-11-20 04:45 | Pulmonary Progress Note ---
Subjective Time Seen by a Provider: 04:40 Subjective/Events-last exam No complications noted. Sepsis Event Evaluation Height, Weight, BMI Height: 5'7.00" Weight: 262lbs. 4.0oz. 118.757569eu; 42.00 BMI Method:Stated Focused Exam Time of Focused Exam: 08:32 Exam Exam Vital Signs Date Time Temp Pulse Resp B/P (MAP) Pulse Ox O2 Delivery O2 Flow Rate FiO2 11/20/20 03:58 36.0 11/20/20 02:26 97 Vapotherm 40.00 90 11/20/20 02:20 Vapotherm 40.00 90.00 11/19/20 23:29 NIV Bilevel 60.00 11/19/20 23:00 66 18 98 NIV Bilevel 70.00 11/19/20 22:00 71 23 98 NIV Bilevel 70.00 11/19/20 21:52 72 22 90 70.00 11/19/20 21:00 73 17 92 NIV Bilevel 70.00 11/19/20 20:55 NIV Bilevel 70.00 11/19/20 20:00 79 25 93 Vapotherm 40.00 100.00 11/19/20 20:00 90 Vapotherm 40.00 80 11/19/20 19:48 35.8 11/19/20 19:00 87 11/19/20 19:00 87 28 89 Vapotherm 40.00 100.00 11/19/20 18:00 () Vapotherm 11/19/20 17:00 () Vapotherm 11/19/20 16:00 () Vapotherm 11/19/20 15:58 35.8 11/19/20 15:02 92 Vapotherm 40.00 80 11/19/20 15:00 () Vapotherm 11/19/20 14:00 () Vapotherm 11/19/20 13:00 90 18 133/53 (79) 96 Vapotherm 30.00 80.00 11/19/20 12:54 36.0 11/19/20 12:41 84 11/19/20 12:00 90 18 130/50 (76) 93 Vapotherm 30.00 80.00 11/19/20 11:02 91 Vapotherm 40.00 80 11/19/20 11:00 () Vapotherm 11/19/20 10:00 77 18 123/49 (73) 92 Vapotherm 30.00 80.00 11/19/20 09:00 72 18 129/51 (77) 91 Vapotherm 30.00 80.00 11/19/20 08:00 90 Vapotherm 40.00 80 11/19/20 08:00 73 18 130/51 (77) 92 Vapotherm 30.00 80.00 11/19/20 07:33 35.9 84 18 119/54 (75) 90 Vapotherm 40.00 80.00 11/19/20 07:09 91 Vapotherm 40.00 80.00 11/19/20 07:00 84 17 119/45 (69) 91 Vapotherm 30.00 80.00 11/19/20 06:46 95 Vapotherm 40.00 80 11/19/20 06:43 89 11/19/20 06:35 64 11/19/20 04:50 90 Vapotherm 30.00 80.00 I & O 11/20/20 07:00 Intake Total 975 ml Output Total 2350 ml Balance -1375 ml Height & Weight Height: 5'7.00" Weight: 262lbs. 4.0oz. 118.057243bd; 42.00 BMI Method:Stated General Appearance: No Apparent Distress, WD/WN, Chronically ill HEENT: PERRL/EOMI, Normal ENT Inspection, Pharynx Normal Neck: Full Range of Motion, Non Tender, Supple Respiratory: Chest Non Tender, No Respiratory Distress, Accessory Muscle Use, Crackles, Decreased Breath Sounds, Rales, Wheezing Cardiovascular: Regular Rate, Rhythm, No Edema, No Gallop, No JVD, No Murmur, Normal Peripheral Pulses Capillary Refill: Less Than 3 Seconds Peripheral Pulses: 2+ Radial Pulses (R), 2+ Radial Pulses (L) Gastrointestinal: normal bowel sounds, non tender, soft Extremity: Normal Capillary Refill, Normal Inspection, Normal Range of Motion, Non Tender, No Calf Tenderness, No Pedal Edema Neurologic/Psychiatric: Alert, Oriented x3, No Motor/Sensory Deficits, Normal Mood/Affect Skin: Normal Color, Warm/Dry Lymphatic: No Adenopathy Results Lab Laboratory Tests 11/19/20 01:18 11/20/20 03:00 Assessment/Plan Assessment/Plan COVID -Currenlty on Vapotherm 80% -BiPAP PRN -Decadron 6mg daily -CVP -Remdesivir started -Oxygen -Give Lasix 40mg IV x 1 -Check echo PNA -Continue Cefepime Presumed PE secondary to elevated DDIMer and COVID dx -Lovenox theraputic dosing -will treat for total of 3mo with anticoagulation Metabolic lactic acidosis - resolved LEANDRO NELSON DO Nov 20, 2020 04:45
[2020-11-20] MEDS: MAGNESIUM 1 GM/100 ML IVPB 100 ML IV SCH (04:59)
[2020-11-20] MEDS: POTASSIUM CL 10MEQ/50ML IVPB 50 ML IV SCH (04:59)
[2020-11-20] MEDS: KCL 20 MEQ TAB (K-DUR) PO SCH (05:00)
[2020-11-20] MEDS: CEFEPIME INJECTION 1,000 MG in WATER (STERILE) FOR INJECTION 10 ML IV SCH ×4 (05:17→23:36)
[2020-11-20] MEDS: RT-ALBUTEROL INHALER HFA (VENTOLIN HFA) 18 GM IH SCH ×5 (07:42→22:58)
--- NOTE | 2020-11-20 07:44 | Diagnostic Imaging Report ---
Indication: Dyspnea Upright chest shows normal heart size and vascularity. There are bilateral infiltrates stable compared to 11/19/2020 study. There is no effusion or pneumothorax. IMPRESSION: Stable infiltrates. Dictated by: Dictated on workstation # [id number]
[2020-11-20] MEDS: FAMOTIDINE 20 MG (PEPCID) TABLET PO SCH ×2 (08:49→20:00)
[2020-11-20] MEDS: ENOXAPARIN 300 MG/3 ML (LOVENOX) MULTI-DOSE VIAL SQ SCH ×2 (08:49→20:00)
[2020-11-20] MEDS: lisINopril 5 MG (PRINIVIL) TABLET PO SCH (10:21)
--- NOTE | 2020-11-20 14:46 | NUR ---
"RD ASSESSMENT PMHx: COPD; GERD; chronic diarrhea; PT INTERACTION: Note pt is currently in COVID isolation per chart review. Note all diet information for assessment for LOS is per Salome RN, or per chart review. Salome states current appetite appears good. Note avg PO intake >75% x4d, per chart review. Salome states no issues with nausea, vomiting, constipation, or diarrhea that she is aware of. Note the pt has not had a BM since 11/14, and not currently on a bowel regimen per chart review. Note recent 15# wt loss x7mon, per chart review. Note abnormal lab values of BUN 24 H; glu 155 H; and Ca 8.3 L, per chart review. Est. kcal needs: 0999-8822 kcal | 15-18 kcal/kg Est. Pro needs: 91-114 g Pro | 0.8-1.0 g Pro/kg PES STATEMENT: Given current PO intake, no nutrition diagnosis at this time (NO-1.1). INTERVENTION: Continue with current diet order of 2000mg Na diet. Will continue to follow and reassess as pt needs, intake, and status change. Bryan PATRICK, MS RD LD [phone] cell"
[2020-11-20] MEDS ORDERED: CEFEPIME 1 GM/10 ML (MAXIPIME) VIAL ONE ×2 (18:10→23:28)
[2020-11-20] MEDS ORDERED: WATER (STERILE) FOR INJECTION 10 ML ONE ×2 (18:10→23:27)
--- NOTE | 2020-11-20 18:25 | NUR ---
1720 PT TRANSFERRED TO ROOM 512 VIA W/C ACCOMPANIED BY THIS RN AND NEW RN WILSON. REPORT GIVEN, PRIOR TO TRANSFER DUE TO COVID ISOLATION
[2020-11-21] MEDS: RT-ALBUTEROL INHALER HFA (VENTOLIN HFA) 18 GM IH SCH ×6 (02:51→22:08)
[2020-11-21 03:31] LABS: BASOPHILS # (AUTO) 0.1 10^3/uL (0.0-0.1); BASOPHILS % (AUTO) 0 % (0-10); EOSINOPHILS # (AUTO) 0.2 10^3/uL (0.0-0.3); EOSINOPHILS % (AUTO) 2 % (0-10); HEMATOCRIT 40 % (35-52); HEMOGLOBIN 12.6 g/dL (11.5-16.0); LYMPHOCYTES # (AUTO) 1.6 10^3/uL (1.0-4.0); LYMPHOCYTES % (AUTO) 14 % (12-44); MEAN CORPUSCULAR HEMOGLOBIN 27 pg (25-34); MEAN CORPUSCULAR HGB CONC 32 g/dL (32-36); MEAN CORPUSCULAR VOLUME 85 fL (80-99); MEAN PLATELET VOLUME 10.4 fL (9.0-12.2); MONOCYTES # (AUTO) 0.7 10^3/uL (0.0-1.0); MONOCYTES % (AUTO) 6 % (0-12); NEUTROPHILS # (AUTO) 8.3 10^3/uL (1.8-7.8); NEUTROPHILS % (AUTO) 74 % (42-75); PLATELET COUNT 354 10^3/uL (130-400); WHITE BLOOD COUNT 11.2 10^3/uL (4.3-11.0)
[2020-11-21 03:35] LABS: POTASSIUM 4.4 MMOL/L (3.6-5.0)
[2020-11-21 03:37] LABS: CALCIUM 8.6 MG/DL (8.5-10.1)
[2020-11-21 03:41] LABS: CREATININE SERUM 0.95 MG/DL (0.60-1.30)
[2020-11-21 03:44] LABS: MAGNESIUM 2.5 MG/DL (1.6-2.4)
[2020-11-21] MEDS: KCL 20 MEQ TAB (K-DUR) PO SCH (03:51)
[2020-11-21] MEDS: POTASSIUM CL 10MEQ/50ML IVPB 50 ML IV SCH (03:51)
[2020-11-21] MEDS: MAGNESIUM 1 GM/100 ML IVPB 100 ML IV SCH (03:51)
[2020-11-21] MEDS ORDERED: CEFEPIME 1 GM/10 ML (MAXIPIME) VIAL ONE (04:08)
[2020-11-21] MEDS ORDERED: WATER (STERILE) FOR INJECTION 10 ML ONE (04:08)
--- NOTE | 2020-11-21 05:34 | Pulmonary Progress Note ---
Subjective Time Seen by a Provider: 05:33 Subjective/Events-last exam Pt is still requiring a lot of oxygen. Sepsis Event Evaluation Height, Weight, BMI Height: 5'7.00" Weight: 262lbs. 4.0oz. 118.698351cf; 42.00 BMI Method:Stated Focused Exam Time of Focused Exam: 08:32 Exam Exam Vital Signs Date Time Temp Pulse Resp B/P (MAP) Pulse Ox O2 Delivery O2 Flow Rate FiO2 11/21/20 03:12 36.4 75 22 112/46 (68) 91 Vapotherm 35.00 65.00 11/21/20 02:51 94 Vapotherm 35.00 65 11/21/20 01:08 76 11/20/20 23:12 36.2 70 18 107/55 (72) 95 Vapotherm 35.00 65.00 11/20/20 22:58 94 Vapotherm 35.00 65 11/20/20 20:02 87 26 111/65 (80) 92 Vapotherm 35.00 65.00 11/20/20 20:00 91 Vapotherm 35.00 60 11/20/20 19:14 92 Vapotherm 30.00 65 11/20/20 19:09 89 11/20/20 15:43 35.8 11/20/20 15:23 92 Vapotherm 30.00 60 11/20/20 15:00 82 28 107/61 (76) 93 Vapotherm 40.00 90.00 11/20/20 13:09 89 11/20/20 12:00 99 25 133/102 (112) 94 Vapotherm 40.00 90.00 11/20/20 11:55 36.4 11/20/20 11:08 94 Vapotherm 40.00 70 11/20/20 08:50 91 Vapotherm 40.00 70 11/20/20 08:00 98 22 107/56 (73) 96 Vapotherm 40.00 90.00 11/20/20 07:42 97 Vapotherm 40.00 80 11/20/20 07:33 71 11/20/20 06:00 77 26 124/64 (90) 96 Vapotherm 40.00 90.00 I & O 11/21/20 07:00 Intake Total 640 ml Output Total 2025 ml Balance -1385 ml Height & Weight Height: 5'7.00" Weight: 262lbs. 4.0oz. 118.564940ca; 42.00 BMI Method:Stated General Appearance: No Apparent Distress, WD/WN, Chronically ill HEENT: PERRL/EOMI, Normal ENT Inspection, Pharynx Normal Neck: Full Range of Motion, Non Tender, Supple Respiratory: Chest Non Tender, No Respiratory Distress, Accessory Muscle Use, Crackles, Decreased Breath Sounds, Rales, Wheezing Cardiovascular: Regular Rate, Rhythm, No Edema, No Gallop, No JVD, No Murmur, Normal Peripheral Pulses Capillary Refill: Less Than 3 Seconds Peripheral Pulses: 2+ Radial Pulses (R), 2+ Radial Pulses (L) Gastrointestinal: normal bowel sounds, non tender, soft Extremity: Normal Capillary Refill, Normal Inspection, Normal Range of Motion, Non Tender, No Calf Tenderness, No Pedal Edema Neurologic/Psychiatric: Alert, Oriented x3, No Motor/Sensory Deficits, Normal Mood/Affect Skin: Normal Color, Warm/Dry Lymphatic: No Adenopathy Results Lab Laboratory Tests 11/20/20 03:00 11/21/20 03:11 Assessment/Plan Assessment/Plan COVID -Currenlty on Vapotherm 60% -BiPAP PRN -Decadron 6mg daily -CVP -Remdesivir -Oxygen -Check echo PNA -Continue Cefepime Presumed PE secondary to elevated DDIMer and COVID dx -Lovenox theraputic dosing -will treat for total of 3mo with anticoagulation Metabolic lactic acidosis - resolved LEANDRO NELSON DO Nov 21, 2020 05:34
[2020-11-21] MEDS: CEFEPIME INJECTION 1,000 MG in WATER (STERILE) FOR INJECTION 10 ML IV SCH ×3 (05:43→17:16)
[2020-11-21] MEDS: ENOXAPARIN 300 MG/3 ML (LOVENOX) MULTI-DOSE VIAL SQ SCH ×2 (08:18→20:08)
[2020-11-21] MEDS: FAMOTIDINE 20 MG (PEPCID) TABLET PO SCH ×2 (08:18→20:08)
[2020-11-21] MEDS: lisINopril 5 MG (PRINIVIL) TABLET PO SCH (08:18)
--- NOTE | 2020-11-21 08:41 | Diagnostic Imaging Report ---
INDICATION: Dyspnea. TECHNIQUE: Single view chest 3:59 AM. CORRELATION STUDY: 11/20/2020 FINDINGS: Left upper extremity central line has been removed. Heart size is enlarged. Extensive bilateral pulmonary infiltrates again demonstrated, particularly in the mid and lower lung beltrán. Findings do appear to be perhaps slightly more consolidated from prior. IMPRESSION: 1. Extensive multilobe infiltrate again demonstrated. Overall appearing slightly more consolidated increased from previous. Dictated by: Dictated on workstation # [id number]
[2020-11-21] MEDS: guaiFENesin/CODEINE (ROBITUSSIN AC) 10ML UDC PO PRN (20:22)
--- NOTE | 2020-11-21 20:50 | NUR ---
CALLED DR. WISE AND INFORMED HER THAT PATIENT IS C/O BLADDER SPASMS. RECEIVED ORDER TO D/C MOE. WILL CONTINUE TO MONITOR.
[2020-11-22] MEDS: CEFEPIME INJECTION 1,000 MG in WATER (STERILE) FOR INJECTION 10 ML IV SCH ×5 (00:19→23:42)
[2020-11-22] MEDS: RT-ALBUTEROL INHALER HFA (VENTOLIN HFA) 18 GM IH SCH ×6 (01:16→21:29)
[2020-11-22 04:17] LABS: BASOPHILS # (AUTO) 0.1 10^3/uL (0.0-0.1); BASOPHILS % (AUTO) 0 % (0-10); EOSINOPHILS # (AUTO) 0.1 10^3/uL (0.0-0.3); EOSINOPHILS % (AUTO) 1 % (0-10); HEMATOCRIT 38 % (35-52); HEMOGLOBIN 11.8 g/dL (11.5-16.0); LYMPHOCYTES # (AUTO) 1.1 10^3/uL (1.0-4.0); LYMPHOCYTES % (AUTO) 9 % (12-44); MEAN CORPUSCULAR HEMOGLOBIN 27 pg (25-34); MEAN CORPUSCULAR HGB CONC 32 g/dL (32-36); MEAN CORPUSCULAR VOLUME 86 fL (80-99); MEAN PLATELET VOLUME 10.3 fL (9.0-12.2); MONOCYTES # (AUTO) 0.8 10^3/uL (0.0-1.0); MONOCYTES % (AUTO) 6 % (0-12); NEUTROPHILS # (AUTO) 10.6 10^3/uL (1.8-7.8); NEUTROPHILS % (AUTO) 82 % (42-75); PLATELET COUNT 282 10^3/uL (130-400); WHITE BLOOD COUNT 12.8 10^3/uL (4.3-11.0)
--- NOTE | 2020-11-22 04:24 | Diagnostic Imaging Report ---
Indication: Shortness of breath Portable chest 2:30 AM There are consolidating infiltrates in the mid regions of both lungs. There are no effusions or pneumothoraces. Left upper extremity PICC line tip projects over the SVC. IMPRESSION: Bilateral pulmonary infiltrates consistent with pneumonia. No change compared to the previous day. Dictated by: Dictated on workstation # [id number]
[2020-11-22 04:33] LABS: CHLORIDE 102 MMOL/L (98-107); POTASSIUM 4.7 MMOL/L (3.6-5.0); SODIUM 136 MMOL/L (135-145)
[2020-11-22 04:35] LABS: CALCIUM 8.3 MG/DL (8.5-10.1); GLUCOSE 157 MG/DL (70-105)
[2020-11-22 04:37] LABS: CARBON DIOXIDE 24 MMOL/L (21-32)
[2020-11-22 04:39] LABS: CREATININE SERUM 0.78 MG/DL (0.60-1.30); GFR ESTIMATED > 60; PHOSPHORUS 3.7 MG/DL (2.3-4.7)
[2020-11-22 04:40] LABS: BUN/CREATININE RATIO 37
[2020-11-22 04:41] LABS: MAGNESIUM 2.6 MG/DL (1.6-2.4)
--- NOTE | 2020-11-22 05:22 | Pulmonary Progress Note ---
Subjective Time Seen by a Provider: 05:20 Subjective/Events-last exam No complications noted. Sepsis Event Evaluation Height, Weight, BMI Height: 5'7.00" Weight: 262lbs. 4.0oz. 118.035198al; 42.00 BMI Method:Stated Focused Exam Time of Focused Exam: 08:32 Exam Exam Vital Signs Date Time Temp Pulse Resp B/P (MAP) Pulse Ox O2 Delivery O2 Flow Rate FiO2 11/22/20 04:00 36.0 74 20 99/72 (81) 94 Vapotherm 35.00 65.00 11/22/20 01:16 90 Vapotherm 35.00 65 11/22/20 00:43 72 11/21/20 23:44 36.1 77 22 105/72 (83) 95 Vapotherm 35.00 65.00 11/21/20 22:09 95 Vapotherm 35.00 65 11/21/20 20:00 92 Vapotherm 35.00 65 11/21/20 19:31 95 Vapotherm 35.00 65 11/21/20 19:24 35.4 88 20 102/72 (82) 94 Vapotherm 35.00 65.00 11/21/20 19:00 96 11/21/20 15:47 35.9 95 14 108/86 (93) 95 Vapotherm 35.00 65.00 11/21/20 14:23 92 Vapotherm 35.00 65 11/21/20 12:35 103 11/21/20 12:00 36.4 87 24 108/72 (84) 94 Vapotherm 35.00 65.00 11/21/20 11:14 93 Vapotherm 35.00 65 11/21/20 08:00 36.2 68 24 102/55 (71) 92 Vapotherm 35.00 65.00 11/21/20 08:00 92 Vapotherm 35.00 65 11/21/20 07:46 92 Vapotherm 35.00 65 11/21/20 06:38 89 I & O 11/22/20 07:00 Intake Total 1055 ml Output Total 1150 ml Balance -95 ml Height & Weight Height: 5'7.00" Weight: 262lbs. 4.0oz. 118.213056yy; 42.00 BMI Method:Stated General Appearance: No Apparent Distress, WD/WN, Chronically ill HEENT: PERRL/EOMI, Normal ENT Inspection, Pharynx Normal Neck: Full Range of Motion, Non Tender, Supple Respiratory: Chest Non Tender, No Respiratory Distress, Accessory Muscle Use, Crackles, Decreased Breath Sounds, Rales, Wheezing Cardiovascular: Regular Rate, Rhythm, No Edema, No Gallop, No JVD, No Murmur, Normal Peripheral Pulses Capillary Refill: Less Than 3 Seconds Peripheral Pulses: 2+ Radial Pulses (R), 2+ Radial Pulses (L) Gastrointestinal: normal bowel sounds, non tender, soft Extremity: Normal Capillary Refill, Normal Inspection, Normal Range of Motion, Non Tender, No Calf Tenderness, No Pedal Edema Neurologic/Psychiatric: Alert, Oriented x3, No Motor/Sensory Deficits, Normal Mood/Affect Skin: Normal Color, Warm/Dry Lymphatic: No Adenopathy Results Lab Laboratory Tests 11/21/20 03:11 11/22/20 04:10 Assessment/Plan Assessment/Plan COVID -Currenlty on Vapotherm 65% -BiPAP PRN -Decadron 6mg daily -CVP -Remdesivir -Oxygen -Check echo PNA -Continue Cefepime Presumed PE secondary to elevated DDIMer and COVID dx -Lovenox theraputic dosing -will treat for total of 3mo with anticoagulation Metabolic lactic acidosis - resolved LEANDRO NELSON DO Nov 22, 2020 05:22
[2020-11-22] MEDS: MAGNESIUM 1 GM/100 ML IVPB 100 ML IV SCH (05:55)
[2020-11-22] MEDS: KCL 20 MEQ TAB (K-DUR) PO SCH (05:55)
[2020-11-22] MEDS: POTASSIUM CL 10MEQ/50ML IVPB 50 ML IV SCH (05:55)
[2020-11-22] MEDS: FAMOTIDINE 20 MG (PEPCID) TABLET PO SCH ×2 (08:41→20:50)
[2020-11-22] MEDS: ENOXAPARIN 300 MG/3 ML (LOVENOX) MULTI-DOSE VIAL SQ SCH ×2 (08:42→20:51)
[2020-11-22] MEDS: lisINopril 5 MG (PRINIVIL) TABLET PO SCH (08:42)
[2020-11-22] MEDS: ANTACID SUSP 30 ML UDC (MYLANTA) PO PRN (20:51)
[2020-11-23 04:07] LABS: BASOPHILS % (AUTO) 0 % (0-10); EOSINOPHILS # (AUTO) 0.1 10^3/uL (0.0-0.3); EOSINOPHILS % (AUTO) 1 % (0-10); HEMATOCRIT 39 % (35-52); HEMOGLOBIN 12.1 g/dL (11.5-16.0); LYMPHOCYTES # (AUTO) 1.1 10^3/uL (1.0-4.0); LYMPHOCYTES % (AUTO) 8 % (12-44); MEAN CORPUSCULAR HEMOGLOBIN 27 pg (25-34); MEAN CORPUSCULAR HGB CONC 31 g/dL (32-36); MEAN CORPUSCULAR VOLUME 87 fL (80-99); MEAN PLATELET VOLUME 10.7 fL (9.0-12.2); MONOCYTES # (AUTO) 0.9 10^3/uL (0.0-1.0); MONOCYTES % (AUTO) 6 % (0-12); NEUTROPHILS % (AUTO) 83 % (42-75); PLATELET COUNT 273 10^3/uL (130-400); WHITE BLOOD COUNT 13.3 10^3/uL (4.3-11.0)
[2020-11-23 04:24] LABS: CHLORIDE 101 MMOL/L (98-107); POTASSIUM 4.7 MMOL/L (3.6-5.0); SODIUM 137 MMOL/L (135-145)
[2020-11-23 04:25] LABS: CALCIUM 8.6 MG/DL (8.5-10.1); GLUCOSE 154 MG/DL (70-105)
[2020-11-23 04:27] LABS: CARBON DIOXIDE 23 MMOL/L (21-32)
[2020-11-23 04:29] LABS: CREATININE SERUM 0.75 MG/DL (0.60-1.30); GFR ESTIMATED > 60; PHOSPHORUS 3.6 MG/DL (2.3-4.7)
[2020-11-23 04:30] LABS: BUN/CREATININE RATIO 36
[2020-11-23 04:31] LABS: MAGNESIUM 2.9 MG/DL (1.6-2.4)
[2020-11-23] MEDS: RT-ALBUTEROL INHALER HFA (VENTOLIN HFA) 18 GM IH SCH ×6 (05:18→22:45)
[2020-11-23] MEDS: CEFEPIME INJECTION 1,000 MG in WATER (STERILE) FOR INJECTION 10 ML IV SCH ×3 (05:36→17:47)
--- NOTE | 2020-11-23 05:55 | Progress Note - Hospitalist ---
Subjective HPI/CC On Admission Date Seen by Provider: Nov 23, 2020 Time Seen by Provider: 10:30 CC: Dyspnea HPI: This is a 75yoWF with h/o severe O2 dependent COPD who presented to the ER with increased dyspnea with hypoxia. Patient was dx with COVID. Protocol meds started and patient required IVF and biPAP in ER and is doing better now and trying to convert over to Vapotherm. Unable to speak due to biPAP. Subjective/Events-last exam Patient doing well No pain reported Improved overall Still on Vapotherm No falls BM+ Eating well 90% Vapotherm Review of Systems General: Fatigue, Malaise Pulmonary: Dyspnea, Cough Focused Exam Time of Focused Exam: 08:32 Objective Exam Vital Signs Vital Signs Date Time Temp Pulse Resp B/P (MAP) Pulse Ox O2 Delivery O2 Flow Rate FiO2 11/24/20 07:00 96 Vapotherm 20.00 60 11/24/20 05:21 35.9 71 24 99/68 (78) Capillary Refill : Less Than 3 Seconds General Appearance: No Apparent Distress, WD/WN, Chronically ill Respiratory: No Accessory Muscle Use, No Respiratory Distress, Decreased Breath Sounds Cardiovascular: Regular Rate, Rhythm, No Edema, No Gallop, No JVD, No Murmur, Normal Peripheral Pulses Neurologic/Psychiatric: Alert, Oriented x3, No Motor/Sensory Deficits, Normal Mood/Affect Results/Procedures Lab Laboratory Tests 11/24/20 05:15 Patient resulted labs reviewed. Assessment/Plan Assessment and Plan Assess & Plan/Chief Complaint Assessment: COVID-19 PNA Severe baseline COPD O2 dependence HTN Plan: ICU BiPAP 11/15/20: High risk for decompensation 11/16/20: Remain in ICU High risk for decompensation 11/17/20: Monitor closely Increased risk for intubation 11/23/20: Monitor lungs Vapotherm wean Monitor BP Diagnosis/Problems Diagnosis/Problems (1) COVID-19 Status: Acute (2) Acute respiratory failure Status: Acute Qualifiers: Respiratory failure complication: hypoxia Qualified Codes: J96.01 - Acute respiratory failure with hypoxia Clinical Quality Measures DVT/VTE Risk/Contraindication: Risk Factor Score Per Nursin RFS Level Per Nursing on Admit: 4+=Very High STACIE TRACEY DO Nov 23, 2020 05:55
--- NOTE | 2020-11-23 08:38 | Diagnostic Imaging Report ---
INDICATION: Dyspnea, infiltrate. TECHNIQUE: Single view chest 3:31 AM. CORRELATION STUDY: 11/22/2020 FINDINGS: Left upper extremity central line tip over the SVC. Heart size and mediastinum appear generally stable. Extensive bilateral pulmonary opacities again demonstrated. Remaining most pronounced and consolidation in the right mid lung field. No definitive adverse change. Findings do appear to be superimposed on rather advanced emphysematous lung disease. IMPRESSION: 1. No appreciable change in extensive bilateral pulmonary infiltrates right greater than left. Dictated by: Dictated on workstation # [id number]
[2020-11-23] MEDS: FAMOTIDINE 20 MG (PEPCID) TABLET PO SCH ×2 (08:48→22:05)
[2020-11-23] MEDS: lisINopril 5 MG (PRINIVIL) TABLET PO SCH (08:48)
[2020-11-23] MEDS: ENOXAPARIN 300 MG/3 ML (LOVENOX) MULTI-DOSE VIAL SQ SCH ×2 (08:49→22:05)
[2020-11-23] MEDS: ANTACID SUSP 30 ML UDC (MYLANTA) PO PRN (17:51)
[2020-11-24] MEDS: CEFEPIME INJECTION 1,000 MG in WATER (STERILE) FOR INJECTION 10 ML IV SCH ×2 (00:46→05:09)
[2020-11-24] MEDS: RT-ALBUTEROL INHALER HFA (VENTOLIN HFA) 18 GM IH SCH ×5 (02:38→23:04)
[2020-11-24 05:42] LABS: BASOPHILS # (AUTO) 0.1 10^3/uL (0.0-0.1); BASOPHILS % (AUTO) 1 % (0-10); EOSINOPHILS # (AUTO) 0.2 10^3/uL (0.0-0.3); EOSINOPHILS % (AUTO) 1 % (0-10); HEMATOCRIT 39 % (35-52); HEMOGLOBIN 11.9 g/dL (11.5-16.0); LYMPHOCYTES # (AUTO) 1.4 10^3/uL (1.0-4.0); LYMPHOCYTES % (AUTO) 10 % (12-44); MEAN CORPUSCULAR HEMOGLOBIN 27 pg (25-34); MEAN CORPUSCULAR HGB CONC 31 g/dL (32-36); MEAN CORPUSCULAR VOLUME 86 fL (80-99); MEAN PLATELET VOLUME 10.7 fL (9.0-12.2); MONOCYTES # (AUTO) 0.8 10^3/uL (0.0-1.0); MONOCYTES % (AUTO) 6 % (0-12); NEUTROPHILS # (AUTO) 10.8 10^3/uL (1.8-7.8); NEUTROPHILS % (AUTO) 81 % (42-75); PLATELET COUNT 238 10^3/uL (130-400); WHITE BLOOD COUNT 13.3 10^3/uL (4.3-11.0)
[2020-11-24 05:43] LABS: CHLORIDE 100 MMOL/L (98-107); POTASSIUM 4.8 MMOL/L (3.6-5.0); SODIUM 135 MMOL/L (135-145)
[2020-11-24 05:44] LABS: CALCIUM 8.3 MG/DL (8.5-10.1); GLUCOSE 143 MG/DL (70-105)
[2020-11-24 05:46] LABS: CARBON DIOXIDE 25 MMOL/L (21-32)
[2020-11-24 05:48] LABS: GFR ESTIMATED > 60; PHOSPHORUS 2.9 MG/DL (2.3-4.7)
[2020-11-24 05:49] LABS: BUN/CREATININE RATIO 34
[2020-11-24 05:50] LABS: MAGNESIUM 2.8 MG/DL (1.6-2.4)
--- NOTE | 2020-11-24 07:06 | Progress Note - Hospitalist ---
Subjective HPI/CC On Admission Date Seen by Provider: Nov 24, 2020 Time Seen by Provider: 11:00 CC: Dyspnea HPI: This is a 75yoWF with h/o severe O2 dependent COPD who presented to the ER with increased dyspnea with hypoxia. Patient was dx with COVID. Protocol meds started and patient required IVF and biPAP in ER and is doing better now and trying to convert over to Vapotherm. Unable to speak due to biPAP. Subjective/Events-last exam Patient doing well BP stable Chronic dyspnea reported Labs ok No major issues Review of Systems Pulmonary: Dyspnea, Cough Focused Exam Time of Focused Exam: 08:32 Objective Exam Vital Signs Vital Signs Date Time Temp Pulse Resp B/P (MAP) Pulse Ox O2 Delivery O2 Flow Rate FiO2 11/24/20 16:23 35.9 78 24 82/43 (56) 94 Vapotherm 20.00 60.00 11/24/20 14:13 60 Capillary Refill : Less Than 3 Seconds General Appearance: No Apparent Distress, WD/WN, Anxious, Chronically ill Respiratory: No Accessory Muscle Use, No Respiratory Distress, Decreased Breath Sounds Cardiovascular: Regular Rate, Rhythm Neurologic/Psychiatric: Alert, Oriented x3, No Motor/Sensory Deficits, Normal Mood/Affect Results/Procedures Lab Laboratory Tests 11/24/20 05:15 Patient resulted labs reviewed. Assessment/Plan Assessment and Plan Assess & Plan/Chief Complaint Assessment: COVID-19 PNA Severe baseline COPD O2 dependence HTN Plan: ICU BiPAP 11/15/20: High risk for decompensation 11/16/20: Remain in ICU High risk for decompensation 11/17/20: Monitor closely Increased risk for intubation 11/23/20: Monitor lungs Vapotherm wean Monitor BP 11/24/20: Vapotherm Long recovery Wants to go home when able Diagnosis/Problems Diagnosis/Problems (1) COVID-19 Status: Acute (2) Acute respiratory failure Status: Acute Qualifiers: Respiratory failure complication: hypoxia Qualified Codes: J96.01 - Acute respiratory failure with hypoxia Clinical Quality Measures DVT/VTE Risk/Contraindication: Risk Factor Score Per Nursin RFS Level Per Nursing on Admit: 4+=Very High STACIE TRACEY DO Nov 24, 2020 07:06
[2020-11-24] MEDS: ENOXAPARIN 300 MG/3 ML (LOVENOX) MULTI-DOSE VIAL SQ SCH ×2 (08:44→20:24)
[2020-11-24] MEDS: lisINopril 5 MG (PRINIVIL) TABLET PO SCH (08:44)
[2020-11-24] MEDS: FAMOTIDINE 20 MG (PEPCID) TABLET PO SCH ×2 (08:44→20:24)
--- NOTE | 2020-11-24 08:49 | Diagnostic Imaging Report ---
Portable erect AP chest at 6:30 AM INDICATION: Dyspnea The heart is stable in size when compared to the prior exam of 11/23/2020. The alveolar/interstitial pulmonary infiltrates involving both lungs seen previously are also again evident and essentially no different. The mediastinum is not widened. The osseous structures are intact. The central venous catheter on the left is unchanged in position. IMPRESSION: Stable chest. There has been no adverse change since the prior exam. Dictated by: Dictated on workstation # [id number]
--- NOTE | 2020-11-24 12:53 | NUR ---
PHONE CALL PLACED TO PTS SON. UPDATES GIVEN AND QUESTIONS ANSWERED. SON STATES HE HAS NO FURTHER QUESTIONS OR CONCERNS AT THIS TIME.
[2020-11-25] MEDS: RT-ALBUTEROL INHALER HFA (VENTOLIN HFA) 18 GM IH SCH ×8 (02:35→21:53)
[2020-11-25 03:23] LABS: BASOPHILS # (AUTO) 0.1 10^3/uL (0.0-0.1); BASOPHILS % (AUTO) 0 % (0-10); EOSINOPHILS # (AUTO) 0.1 10^3/uL (0.0-0.3); EOSINOPHILS % (AUTO) 1 % (0-10); HEMATOCRIT 39 % (35-52); HEMOGLOBIN 12.1 g/dL (11.5-16.0); LYMPHOCYTES # (AUTO) 1.9 10^3/uL (1.0-4.0); LYMPHOCYTES % (AUTO) 13 % (12-44); MEAN CORPUSCULAR HEMOGLOBIN 26 pg (25-34); MEAN CORPUSCULAR HGB CONC 31 g/dL (32-36); MEAN CORPUSCULAR VOLUME 86 fL (80-99); MEAN PLATELET VOLUME 10.8 fL (9.0-12.2); MONOCYTES # (AUTO) 0.9 10^3/uL (0.0-1.0); MONOCYTES % (AUTO) 6 % (0-12); NEUTROPHILS % (AUTO) 78 % (42-75); PLATELET COUNT 233 10^3/uL (130-400); WHITE BLOOD COUNT 14.1 10^3/uL (4.3-11.0)
[2020-11-25 03:29] VITALS: BP 101/69
[2020-11-25 03:42] LABS: CHLORIDE 100 MMOL/L (98-107); POTASSIUM 5.2 MMOL/L (3.6-5.0); SODIUM 134 MMOL/L (135-145)
[2020-11-25 03:43] LABS: CALCIUM 8.7 MG/DL (8.5-10.1)
[2020-11-25 03:44] LABS: GLUCOSE 146 MG/DL (70-105)
[2020-11-25 03:45] LABS: CARBON DIOXIDE 22 MMOL/L (21-32)
[2020-11-25 03:47] LABS: PHOSPHORUS 3.9 MG/DL (2.3-4.7)
[2020-11-25 03:48] LABS: CREATININE SERUM 0.84 MG/DL (0.60-1.30); GFR ESTIMATED > 60
[2020-11-25 03:49] LABS: BUN/CREATININE RATIO 32
[2020-11-25 03:50] LABS: MAGNESIUM 2.7 MG/DL (1.6-2.4)
--- NOTE | 2020-11-25 05:24 | Pulmonary Progress Note ---
Subjective Time Seen by a Provider: 05:21 Subjective/Events-last exam Pt is still requiring 60% oxygen. Sepsis Event Evaluation Height, Weight, BMI Height: 5'7.00" Weight: 262lbs. 4.0oz. 118.574648rr; 42.00 BMI Method:Stated Focused Exam Time of Focused Exam: 08:32 Exam Exam Vital Signs Date Time Temp Pulse Resp B/P (MAP) Pulse Ox O2 Delivery O2 Flow Rate FiO2 11/25/20 03:29 36.2 64 93 11/25/20 03:10 36.2 64 22 101/69 (80) 92 Vapotherm 20.00 60.00 11/25/20 02:36 95 Vapotherm 20.00 60 11/25/20 01:00 67 11/24/20 23:11 36.2 67 26 114/73 (87) 96 Vapotherm 20.00 60.00 11/24/20 23:04 95 Vapotherm 20.00 60 11/24/20 21:00 92 Vapotherm 20.00 60 11/24/20 20:19 74 20 114/67 (83) 94 Vapotherm 20.00 60.00 11/24/20 19:38 35.5 75 20 117/86 (96) 94 Vapotherm 20.00 60.00 11/24/20 19:00 83 11/24/20 16:23 35.9 78 24 82/43 (56) 94 Vapotherm 20.00 60.00 11/24/20 14:13 94 Vapotherm 20.00 60 11/24/20 13:00 90 11/24/20 12:00 35.9 87 24 99/68 (78) 94 Vapotherm 20.00 60.00 11/24/20 10:58 90 Vapotherm 20.00 60 11/24/20 08:00 94 Vapotherm 35.00 70 11/24/20 08:00 35.8 97 24 100/72 (81) 93 Vapotherm 20.00 60.00 11/24/20 07:00 96 Vapotherm 20.00 60 11/24/20 07:00 85 I & O 11/25/20 07:00 Intake Total 2025 ml Output Total 775 ml Balance 1250 ml Height & Weight Height: 5'7.00" Weight: 262lbs. 4.0oz. 118.628083pz; 42.00 BMI Method:Stated General Appearance: No Apparent Distress, WD/WN, Anxious, Chronically ill HEENT: PERRL/EOMI, Normal ENT Inspection, Pharynx Normal Neck: Full Range of Motion, Non Tender, Supple Respiratory: No Accessory Muscle Use, No Respiratory Distress, Decreased Breath Sounds Cardiovascular: Regular Rate, Rhythm Capillary Refill: Less Than 3 Seconds Peripheral Pulses: 2+ Radial Pulses (R), 2+ Radial Pulses (L) Gastrointestinal: normal bowel sounds, non tender, soft Extremity: Normal Capillary Refill, Normal Inspection, Normal Range of Motion, Non Tender, No Calf Tenderness, No Pedal Edema Neurologic/Psychiatric: Alert, Oriented x3, No Motor/Sensory Deficits, Normal Mood/Affect Skin: Normal Color, Warm/Dry Lymphatic: No Adenopathy Results Lab Laboratory Tests 11/24/20 05:15 11/25/20 03:10 Assessment/Plan Assessment/Plan COVID -Currenlty on Vapotherm 65% -BiPAP PRN -Decadron 6mg daily -CVP -Remdesivir -Oxygen -Check echo PNA -Continue Cefepime Presumed PE secondary to elevated DDIMer and COVID dx -Lovenox theraputic dosing -will treat for total of 3mo with anticoagulation Metabolic lactic acidosis - resolved LEANDRO NELSON DO Nov 25, 2020 05:24
--- NOTE | 2020-11-25 05:56 | Progress Note - Hospitalist ---
Subjective HPI/CC On Admission Date Seen by Provider: Nov 25, 2020 CC: Dyspnea HPI: This is a 75yoWF with h/o severe O2 dependent COPD who presented to the ER with increased dyspnea with hypoxia. Patient was dx with COVID. Protocol meds started and patient required IVF and biPAP in ER and is doing better now and trying to convert over to Vapotherm. Unable to speak due to biPAP. Focused Exam Time of Focused Exam: 08:32 Objective Exam Vital Signs Vital Signs Date Time Temp Pulse Resp B/P (MAP) Pulse Ox O2 Delivery O2 Flow Rate FiO2 11/25/20 08:05 90 Vapotherm 20.00 70 11/25/20 07:27 35.9 74 107/72 (84) 11/25/20 03:10 22 Capillary Refill : Less Than 3 Seconds Results/Procedures Lab Laboratory Tests 11/25/20 03:10 Patient resulted labs reviewed. Assessment/Plan Assessment and Plan Assess & Plan/Chief Complaint Assessment: COVID-19 PNA Severe baseline COPD O2 dependence HTN Plan: ICU BiPAP 11/15/20: High risk for decompensation 11/16/20: Remain in ICU High risk for decompensation 11/17/20: Monitor closely Increased risk for intubation 11/23/20: Monitor lungs Vapotherm wean Monitor BP 11/24/20: Vapotherm Long recovery Wants to go home when able Diagnosis/Problems Diagnosis/Problems (1) COVID-19 Status: Acute (2) Acute respiratory failure Status: Acute Qualifiers: Respiratory failure complication: hypoxia Qualified Codes: J96.01 - Acute respiratory failure with hypoxia Clinical Quality Measures DVT/VTE Risk/Contraindication: Risk Factor Score Per Nursin RFS Level Per Nursing on Admit: 4+=Very High STACIE TRACEY DO Nov 25, 2020 05:56
--- NOTE | 2020-11-25 07:36 | Diagnostic Imaging Report ---
Indication: Shortness of breath Comparison: 11/24/2020. Findings: Single view of the chest demonstrates bilateral pulmonary infiltrates. The heart is normal. There is no pneumothorax. Osseous structures are stable. No large effusion is seen. PICC line is in good position. Impression: Unchanged bilateral pulmonary infiltrates. Dictated by: Dictated on workstation # [id number]
[2020-11-25] MEDS: RT-ALBUTEROL INHALER HFA (VENTOLIN HFA) 18 GM IH PRN (08:04)
[2020-11-25] MEDS: FAMOTIDINE 20 MG (PEPCID) TABLET PO SCH ×2 (08:45→21:26)
[2020-11-25] MEDS: ENOXAPARIN 300 MG/3 ML (LOVENOX) MULTI-DOSE VIAL SQ SCH ×2 (08:45→21:26)
[2020-11-25] MEDS: FUROSEMIDE 40 MG (LASIX) TAB PO SCH (08:45)
[2020-11-25] MEDS: ANTACID SUSP 30 ML UDC (MYLANTA) PO PRN (13:46)
[2020-11-25] MEDS ORDERED: NS IV 500 ML 500 ML ONE (14:56)
--- NOTE | 2020-11-25 16:15 | NUR ---
THIS RN FOUND PT PICC LINE OUT. NO SWELLING OR BLEEDING NOTED TO LEFT UPPER ARM. PERIPHERAL IV STARTED IN RIGHT FA X1 ATTEMPT.
[2020-11-25 16:36] VITALS: BP 100/62
[2020-11-26] MEDS: RT-ALBUTEROL INHALER HFA (VENTOLIN HFA) 18 GM IH SCH ×6 (03:27→21:58)
--- NOTE | 2020-11-26 04:36 | Pulmonary Progress Note ---
Subjective Time Seen by a Provider: 04:33 Subjective/Events-last exam Pt is doing better. Sepsis Event Evaluation Height, Weight, BMI Height: 5'7.00" Weight: 262lbs. 4.0oz. 118.517516kh; 42.00 BMI Method:Stated Focused Exam Time of Focused Exam: 08:32 Exam Exam Vital Signs Date Time Temp Pulse Resp B/P (MAP) Pulse Ox O2 Delivery O2 Flow Rate FiO2 11/26/20 03:00 35.9 71 20 115/76 (89) 97 Vapotherm 20.00 65.00 11/26/20 00:55 71 11/25/20 23:28 35.9 93 23 104/71 (82) 96 Vapotherm 20.00 65.00 11/25/20 21:53 94 Vapotherm 20.00 65 11/25/20 20:00 94 Vapotherm 20.00 70 11/25/20 19:15 35.6 95 19 132/89 (103) 95 Vapotherm 20.00 70.00 11/25/20 19:00 90 11/25/20 18:31 93 Vapotherm 20.00 70 11/25/20 18:04 35.8 11/25/20 16:36 35.8 86 11/25/20 16:07 35.8 11/25/20 15:31 35.8 90 22 94/68 (77) 94 Vapotherm 20.00 70.00 11/25/20 14:43 93 Vapotherm 20.00 70 11/25/20 12:34 102 11/25/20 12:16 35.9 82 24 110/62 (78) 91 Vapotherm 20.00 70.00 11/25/20 11:42 92 Vapotherm 20.00 70 11/25/20 08:05 90 Vapotherm 20.00 70 11/25/20 08:00 94 Vapotherm 20.00 70 11/25/20 07:27 35.9 74 107/72 (84) 91 Vapotherm 20.00 60.00 11/25/20 06:36 70 I & O 11/26/20 07:00 Intake Total 1800 ml Balance 1800 ml Height & Weight Height: 5'7.00" Weight: 262lbs. 4.0oz. 118.844834ne; 42.00 BMI Method:Stated General Appearance: No Apparent Distress, WD/WN, Anxious, Chronically ill HEENT: PERRL/EOMI, Normal ENT Inspection, Pharynx Normal Neck: Full Range of Motion, Non Tender, Supple Respiratory: No Accessory Muscle Use, No Respiratory Distress, Decreased Breath Sounds Cardiovascular: Regular Rate, Rhythm Capillary Refill: Less Than 3 Seconds Peripheral Pulses: 2+ Radial Pulses (R), 2+ Radial Pulses (L) Gastrointestinal: normal bowel sounds, non tender, soft Extremity: Normal Capillary Refill, Normal Inspection, Normal Range of Motion, Non Tender, No Calf Tenderness, No Pedal Edema Neurologic/Psychiatric: Alert, Oriented x3, No Motor/Sensory Deficits, Normal Mood/Affect Skin: Normal Color, Warm/Dry Lymphatic: No Adenopathy Results Lab Laboratory Tests 11/24/20 05:15 11/25/20 03:10 Assessment/Plan Assessment/Plan COVID -Currenlty on Vapotherm 65% - Titrate oxygen down pt's SP02 97% -BiPAP PRN -Decadron 6mg daily -CVP -Remdesivir -Oxygen -Check echo PNA -Continue Cefepime Presumed PE secondary to elevated DDIMer and COVID dx -Lovenox theraputic dosing -will treat for total of 3mo with anticoagulation Metabolic lactic acidosis - resolved Pt is doing better will transfer to [facility]. LEANDRO NELSON DO Nov 26, 2020 04:36
[2020-11-26 05:36] LABS: BASOPHILS # (AUTO) 0.1 10^3/uL (0.0-0.1); BASOPHILS % (AUTO) 0 % (0-10); EOSINOPHILS # (AUTO) 0.1 10^3/uL (0.0-0.3); EOSINOPHILS % (AUTO) 0 % (0-10); HEMATOCRIT 40 % (35-52); HEMOGLOBIN 12.5 g/dL (11.5-16.0); LYMPHOCYTES # (AUTO) 2.2 10^3/uL (1.0-4.0); LYMPHOCYTES % (AUTO) 16 % (12-44); MEAN CORPUSCULAR HEMOGLOBIN 27 pg (25-34); MEAN CORPUSCULAR HGB CONC 31 g/dL (32-36); MEAN CORPUSCULAR VOLUME 85 fL (80-99); MEAN PLATELET VOLUME 10.9 fL (9.0-12.2); MONOCYTES # (AUTO) 0.9 10^3/uL (0.0-1.0); MONOCYTES % (AUTO) 7 % (0-12); NEUTROPHILS # (AUTO) 10.1 10^3/uL (1.8-7.8); NEUTROPHILS % (AUTO) 75 % (42-75); PLATELET COUNT 233 10^3/uL (130-400); WHITE BLOOD COUNT 13.6 10^3/uL (4.3-11.0)
[2020-11-26 05:49] LABS: CHLORIDE 100 MMOL/L (98-107); POTASSIUM 4.9 MMOL/L (3.6-5.0); SODIUM 135 MMOL/L (135-145)
[2020-11-26 05:50] LABS: CALCIUM 8.9 MG/DL (8.5-10.1)
[2020-11-26 05:51] LABS: GLUCOSE 128 MG/DL (70-105)
[2020-11-26 05:52] LABS: CARBON DIOXIDE 23 MMOL/L (21-32)
[2020-11-26 05:54] LABS: PHOSPHORUS 4.7 MG/DL (2.3-4.7)
[2020-11-26 05:55] LABS: BUN/CREATININE RATIO 37; GFR ESTIMATED > 60
[2020-11-26] MEDS: FAMOTIDINE 20 MG (PEPCID) TABLET PO SCH ×2 (08:31→20:33)
[2020-11-26] MEDS: FUROSEMIDE 40 MG (LASIX) TAB PO SCH (08:31)
[2020-11-26] MEDS: ENOXAPARIN 300 MG/3 ML (LOVENOX) MULTI-DOSE VIAL SQ SCH ×2 (08:31→20:34)
[2020-11-26] MEDS: ACETAMINOPHEN 500 MG TAB (TYLENOL) PO PRN (14:49)
[2020-11-26] MEDS: ANTACID SUSP 30 ML UDC (MYLANTA) PO PRN (18:23)
[2020-11-27] MEDS: RT-ALBUTEROL INHALER HFA (VENTOLIN HFA) 18 GM IH SCH ×5 (01:39→23:00)
[2020-11-27] MEDS: ANTACID SUSP 30 ML UDC (MYLANTA) PO PRN (01:52)
[2020-11-27 06:19] LABS: BASOPHILS # (AUTO) 0.1 10^3/uL (0.0-0.1); BASOPHILS % (AUTO) 1 % (0-10); EOSINOPHILS # (AUTO) 0.1 10^3/uL (0.0-0.3); EOSINOPHILS % (AUTO) 1 % (0-10); HEMATOCRIT 42 % (35-52); HEMOGLOBIN 13.1 g/dL (11.5-16.0); LYMPHOCYTES # (AUTO) 2.5 10^3/uL (1.0-4.0); LYMPHOCYTES % (AUTO) 19 % (12-44); MEAN CORPUSCULAR HEMOGLOBIN 27 pg (25-34); MEAN CORPUSCULAR HGB CONC 31 g/dL (32-36); MEAN CORPUSCULAR VOLUME 85 fL (80-99); MEAN PLATELET VOLUME 11.2 fL (9.0-12.2); MONOCYTES # (AUTO) 0.9 10^3/uL (0.0-1.0); MONOCYTES % (AUTO) 7 % (0-12); NEUTROPHILS # (AUTO) 9.4 10^3/uL (1.8-7.8); NEUTROPHILS % (AUTO) 72 % (42-75); PLATELET COUNT 248 10^3/uL (130-400); WHITE BLOOD COUNT 13.1 10^3/uL (4.3-11.0)
[2020-11-27 06:29] LABS: ALBUMIN 3.7 GM/DL (3.2-4.5); POTASSIUM 4.8 MMOL/L (3.6-5.0)
[2020-11-27 06:32] LABS: TOTAL PROTEIN 7.1 GM/DL (6.4-8.2)
[2020-11-27 06:34] LABS: BILIRUBIN,TOTAL 0.5 MG/DL (0.1-1.0)
[2020-11-27 06:36] LABS: CREATININE SERUM 1.08 MG/DL (0.60-1.30)
[2020-11-27] MEDS: FAMOTIDINE 20 MG (PEPCID) TABLET PO SCH ×2 (08:48→20:43)
[2020-11-27] MEDS: ENOXAPARIN 300 MG/3 ML (LOVENOX) MULTI-DOSE VIAL SQ SCH ×2 (08:48→20:43)
[2020-11-27] MEDS: FUROSEMIDE 40 MG (LASIX) TAB PO SCH (08:53)
--- NOTE | 2020-11-27 10:52 | Progress Note - Hospitalist ---
Subjective HPI/CC On Admission Date Seen by Provider: Nov 27, 2020 Time Seen by Provider: 11:00 CC: Dyspnea HPI: This is a 75yoWF with h/o severe O2 dependent COPD who presented to the ER with increased dyspnea with hypoxia. Patient was dx with COVID. Protocol meds started and patient required IVF and biPAP in ER and is doing better now and trying to convert over to Vapotherm. Unable to speak due to biPAP. Subjective/Events-last exam Pt doing pretty well PT and OT will be ordered Remains on Vapotherm of 20 liters at 50% Respiratory therapy to start weaning Will get a shower today Will DC telemetry Review of Systems General: Fatigue, Malaise Neurological: Weakness Focused Exam Time of Focused Exam: 08:32 Objective Exam Vital Signs Vital Signs Date Time Temp Pulse Resp B/P (MAP) Pulse Ox O2 Delivery O2 Flow Rate FiO2 11/28/20 03:57 36.0 75 22 116/55 (75) 96 High Flow N/C 6.00 11/27/20 08:00 50 Capillary Refill : Less Than 3 Seconds General Appearance: No Apparent Distress, WD/WN, Chronically ill Respiratory: Lungs Clear Cardiovascular: Regular Rate, Rhythm Neurologic/Psychiatric: Alert, Oriented x3, No Motor/Sensory Deficits, Normal Mood/Affect Results/Procedures Lab Patient resulted labs reviewed. Assessment/Plan Assessment and Plan Assess & Plan/Chief Complaint Assessment: COVID-19 PNA Severe baseline COPD O2 dependence HTN Plan: ICU BiPAP 11/15/20: High risk for decompensation 11/16/20: Remain in ICU High risk for decompensation 11/17/20: Monitor closely Increased risk for intubation 11/23/20: Monitor lungs Vapotherm wean Monitor BP 11/24/20: Vapotherm Long recovery Wants to go home when able 11/27/20: PT OT IRF? O2 Diagnosis/Problems Diagnosis/Problems (1) COVID-19 Status: Acute (2) Acute respiratory failure Status: Acute Qualifiers: Respiratory failure complication: hypoxia Qualified Codes: J96.01 - Acute respiratory failure with hypoxia Clinical Quality Measures DVT/VTE Risk/Contraindication: Risk Factor Score Per Nursin RFS Level Per Nursing on Admit: 4+=Very High STACIE TRACEY DO Nov 27, 2020 10:52
--- NOTE | 2020-11-27 12:57 | Physical Therapy Evaluation ---
PT Evaluation-General Medical Diagnosis Admission Date Nov 14, 2020 at 07:50 Medical Diagnosis: covid 19 PNA Onset Date: Nov 14, 2020 Therapy Diagnosis Therapy Diagnosis: impaired mobility, endurance Height/Weight Height (Feet): 5 Height (Inches): 7.00 Weight (Pounds): 262 Weight (Ounces): 4.0 Precautions Precautions/Isolations: Airborne Isolation Referral Physician: Rita Pham DO Reason for Referral: Evaluation/Treatment Medical History Additional Medical History Past Medical History Surgeries: Section, Gallbladder Currently Using CPAP: Yes : No Reproductive: No Sexually Transmitted Disease: No HIV/AIDS: No Menopausal Gastrointestinal: Abdominal Hernia, Gastroesophageal Reflux, Chronic Diarrhea Musculoskeletal: Arthritis, Chronic Back Pain Social History Home: Single Level Current Living Status: Children (lives with her son) Entry Into Home: Stairs With Railing PT Steps Into Home: 2 Prior Prior Level of Function SCALE: Activities may be completed with or without assistive devices. 2-Jwmgzvwzmv-fsppgaj completes the activity by him/herself with no assistance from a helper. 5-Set-up or Clean-up Assistance-helper sets up or cleans up; patient completes activity. [place] assists only prior to or following the activity. 4-Supervision or Touching Assistance-helper provides verbal cues and/or touching/steadying and/or contact guard assistance as patient completes activity. Assistance may be provided throughout the activity or intermittently. 3-Partial/Moderate Assistance-helper does LESS THAN HALF the effort. [place] lifts, holds or supports trunk or limbs, but provides less than half the effort. 2-Substantial/Maximal Assistance-helper does MORE THAN HALF the effort. [place] lifts or holds trunk or limbs and provides more than half the effort. 0-Ermhzjuzt-jwvamr does ALL the effort. Patient does none of the effort to complete the activity. Or, the assistance of 2 or more helpers is required for the patient to complete the activity. If activity was not attempted, code reason: 7-Patient Refused. 9-Not Applicable-not attempted and the patient did not perform the activity before the current illness, exacerbation or injury. 10-Not Attempted due to Environmental Limitations-(lack of equipment, weather restraints, etc.). 88-Not Attempted due to Medical Conditions or Safety Concerns. Bed Mobility: 6 Transfers (B,C,W/C): 6 Gait: 6 Stairs: 6 Indoor Mobility (Ambulation): Independent Stairs: Independent PT Evaluation-Current Subjective Patient in recliner pre tx, agrees to PT, has no complaints of pain. Pt/Family Goals "to go home" Objective Patient Orientation: Person, Place, Situation Attachments: Oxygen ROM/Strength ROM Lower Extremities WNL Strength Lower Extremities 5/5 gross BLE except for hip flexion 4/5 bilaterally Sensory Hearing: Functional Sensation Right Lower Extremit: Intact Sensation Left Lower Extremity: Intact Transfers Sit to Stand (QC): 6 Chair/Ygu-yk-Exbmt Xfer(QC): 6 Gait Does the Patient Walk?: Yes Mode of Locomotion: Walk Anticipated Mode of Locomotion: Walk Walk 10 feet (QC): 6 Walk 50 ft with 2 Turns(QC): 6 Distance: 60' Gait Assistive Device: None Comments/Gait Description steady ambulation, slightly SOB after ambulating about 60', no AD Balance Sitting Static: Normal Sitting Dynamic: Normal Standing Static: Normal Standing Dynamic: Normal Treatment BLE exercises x20 (AP, LAQ) Assessment/Needs Patient has impaired endurance, some SOB with activity but recovers quickly with rest Rehab Potential: Fair PT [place] Goals Senior Care Goals PT Senior Care Goals Time Frame: Dec 04, 2020 Roll Left & Right (QC): 6 Sit to Lying (QC): 6 Lying-Sitting on Side/Bed(QC): 6 Sit to Stand (QC): 6 Chair/Zzd-bi-Lfsmi Xfer(QC): 6 Walk 10 feet (QC): 6 Walk 50ft with 2 Turns (QC): 6 Walk 150 ft (QC): 6 PT Plan Problem List Problem List: Activity Tolerance, Functional Strength, Safety, Balance, Gait, Transfer Treatment/Plan Treatment Plan: Continue Plan of Care Treatment Plan: Education, Functional Activity Afshin, Functional Strength, Gait, Safety, Therapeutic Exercise, Transfers Treatment Duration: Dec 04, 2020 Frequency: 6 times per week Estimated Hrs Per Day: .25 hour per day Patient and/or Family Agrees t: Yes Safety Risks/Education Patient Education: Gait Training, Transfer Techniques, Correct Positioning, Safety Issues Teaching Recipient: Patient Teaching Methods: Demonstration, Discussion Response to Teaching: Reinforcement Needed Discharge Recommendations Plan Patient will perform bed mobility and transfer training, balance and endurance training, functional strengthening, stair training, gait training, and education, to improve functional mobility and independence at home. Therapy Discharge Recommendati: Home & Family Time/GCodes Time In: 1110 Time Out: 1120 Total Billed Treatment Time: 10 Total Billed Treatment 1 visit EVL Zoila' NATALIA LUTZ PT Nov 27, 2020 12:57
--- NOTE | 2020-11-27 14:11 | NUR ---
IRF Evaluation Determination: Denied Chart review complete, and despite the patient being slightly SOB post ambulation, he is completing transfers, qyl-td-bwomm and ambulating (60ft, no AD) with independence; therefore, patient does not meet criteria for admission. Thank you for this referral.
--- NOTE | 2020-11-27 14:44 | NUR ---
"RD ASSESSMENT PMHx: COPD; GERD; chronic diarrhea; PT INTERACTION: Note pt is currently in COVID isolation per chart review. Note all diet information for nutrition follow-up is per Rodolfo RN, or per chart review. Rodolfo states current appetite appears good. Note avg PO intake 90% x4d, per chart review. Rodolfo states no issues with nausea, vomiting, constipation, or diarrhea that he is aware of. Note last BM was 11/26, and pt not currently on bowel regimen per chart review. Est. kcal needs: 5310-9158 kcal | 15-18 kcal/kg Est. Pro needs: 90-113 g Pro | 0.8-1.0 g Pro/kg PES STATEMENT: Given current PO intake, no nutrition diagnosis at this time (NO-1.1). INTERVENTION: Continue with current diet order of 2000mg Na diet. Will continue to follow and reassess as pt needs, intake, and status change. Bryan PATRICK MS RD LD [phone] cell"
--- NOTE | 2020-11-27 15:37 | Occupational Therapy Eval ---
OT Evaluation-General/PLF Medical Diagnosis Admission Date Nov 14, 2020 at 07:50 Medical Diagnosis: covid 19 PNA Onset Date: Nov 14, 2020 Therapy Diagnosis Therapy Diagnosis: weakness, decreased functional endurance Height/Weight Height (Feet): 5 Height (Inches): 7.00 Weight (Pounds): 262 Weight (Ounces): 4.0 Precautions Precautions/Isolations: Airborne Isolation Referral Physician: Rita Pham DO Referral Reason: Evaluation/Treatment Medical History Pertinent Medical History: Arthritis, COPD, GERD Additional Medical History Surgeries: Section, Gallbladder Currently Using CPAP: Yes : No Reproductive: No Sexually Transmitted Disease: No HIV/AIDS: No Menopausal Gastrointestinal: Abdominal Hernia, Gastroesophageal Reflux, Chronic Diarrhea Musculoskeletal: Arthritis, Chronic Back Pain Current History ED with dyspnea and hypoxia, diagnosed with COVID-19 Social History Home: Single Level Current Living Status: Children (lives with her son) Entry Into Home: Stairs With Railing Steps Into Home: 2 ADL-Prior Level of Function SCALE: Activities may be completed with or without assistive devices. 0-Vmyofjggyu-maxcfhf completes the activity by him/herself with no assistance from a helper. 5-Set-up or Clean-up Assistance-helper sets up or cleans up; patient completes activity. [place] assists only prior to or following the activity. 4-Supervision or Touching Assistance-helper provides verbal cues and/or touching/steadying and/or contact guard assistance as patient completes activity. Assistance may be provided throughout the activity or intermittently. 3-Partial/Moderate Assistance-helper does LESS THAN HALF the effort. [place] lifts, holds or supports trunk or limbs, but provides less than half the effort. 2-Substantial/Maximal Assistance-helper does MORE THAN HALF the effort. [place] lifts or holds trunk or limbs and provides more than half the effort. 4-Blycrbyxd-mjggdn does ALL the effort. Patient does none of the effort to complete the activity. Or, the assistance of 2 or more helpers is required for the patient to complete the activity. If activity was not attempted, code reason: 7-Patient Refused. 9-Not Applicable-not attempted and the patient did not perform the activity before the current illness, exacerbation or injury. 10-Not Attempted due to Environmental Limitations-(lack of equipment, weather restraints, etc.). 88-Not Attempted due to Medical Conditions or Safety Concerns. ADL PLOF Comments Pt reports being independent with all ADLS and functional mobility at PLOF Self Care: Independent Functional Cognition: Independent OT Current Status Subjective Pt seated in recliner, agreeable to OT evaluation and tx. Mental Status/Objective Patient Orientation: Person, Place, Time, Situation Attachments: Oxygen (vapotherm) Current Upper Extremity ROM WFL Upper Extremity Coordination WFL Upper Extremity Sensation WFL ADL-Treatment On/Off Footwear (QC): 6 Toileting Hygiene (QC): 6 Other Treatments OT educated pt on purpose and benefit of OT. Pt provided information about PLOF and home set up and participated in UE screen. Pt able to doff/corry gripper socks seated at recliner independently. She indicates she has been transferring on/off the [facility] independently to complete toileting. In order to increase BUE strength and endurance, OT educated pt on UE exercises. Pt able to complete x5 reps of the following exercises, BUES: shoulder flexion, horizontal abduction, and elbow flexion/extension. O2 dropped to the upper 80's x2 during session but increased to the 90%'s within a few seconds. Pt educated to complete exercises throughout the day, increasing reps as tolerated, she verbalized understanding. Post OT Tx, pt seated in recliner, call light in reach and all needs met. Education OT Patient Education: Correct positioning, Energy conservation, Exercise pro gram, Progress toward Goal/Update tx plan, Purpose of tx/functional activities Teaching Recipient: Patient Teaching Methods: Demonstration, Discussion Response to Teaching: Verbalize Understanding, Return Demonstration OT Care Home Goals Care Home Goals Time Frame: Dec 06, 2020 Eating (QC): 6 Oral Hygiene (QC): 6 Toileting Hygiene (QC): 6 Shower/Bathe Self (QC): 6 Upper Body Dressing (QC): 6 Lower Body Dressing (QC): 6 On/Off Footwear (QC): 6 Additional Goals: 1-Demonstrate ADL Tasks, 2-Verbalize Understanding, 3- ImproveStrength/Afshin 1=Demonstrate adherence to instructed precautions during ADL tasks. 2=Patient will verbalize/demonstrate understanding of assistive devices/modifications for ADL. 3=Patient will improve strength/tolerance for activity to enable patient to perform ADL's. OT Education/Plan Problem List/Assessment Assessment: Decreased Activ Tolerance, Decreased UE Strength, Impaired I ADL's Pt would benefit from short term skilled OT in order to increase functional strength and endurance to maximize LOF for safe return home. Discharge Recommendations Plan/Recommendations: Continue POC Treatment Plan/Plan of Care Patient would benefit from OT for education, treatment and training to promote independence in ADL's, mobility, safety and/or upper extremity function for ADL's. Plan of Care: ADL Retraining, Functional Mobility, UE Funct Exercise/Act Treatment Duration: Dec 06, 2020 Frequency: 5 times per week Estimated Hrs Per Day: .25 hour per day Agreement: Yes Rehab Potential: Fair Time/GCodes Start Time: 14:25 Stop Time: 14:38 Total Time Billed (hr/min): 13 Billed Treatment Time 1, YADIRA WELSH OT Nov 27, 2020 15:36
[2020-11-28] MEDS: ANTACID SUSP 30 ML UDC (MYLANTA) PO PRN ×2 (01:27→09:43)
[2020-11-28] MEDS: RT-ALBUTEROL INHALER HFA (VENTOLIN HFA) 18 GM IH SCH ×6 (03:05→21:47)
[2020-11-28 07:01] LABS: BASOPHILS # (AUTO) 0.1 10^3/uL (0.0-0.1); BASOPHILS % (AUTO) 0 % (0-10); EOSINOPHILS % (AUTO) 0 % (0-10); HEMATOCRIT 43 % (35-52); HEMOGLOBIN 13.7 g/dL (11.5-16.0); LYMPHOCYTES # (AUTO) 2.8 10^3/uL (1.0-4.0); LYMPHOCYTES % (AUTO) 17 % (12-44); MEAN CORPUSCULAR HEMOGLOBIN 27 pg (25-34); MEAN CORPUSCULAR HGB CONC 32 g/dL (32-36); MEAN CORPUSCULAR VOLUME 86 fL (80-99); MEAN PLATELET VOLUME 11.3 fL (9.0-12.2); MONOCYTES # (AUTO) 1.2 10^3/uL (0.0-1.0); MONOCYTES % (AUTO) 7 % (0-12); NEUTROPHILS # (AUTO) 12.1 10^3/uL (1.8-7.8); NEUTROPHILS % (AUTO) 74 % (42-75); PLATELET COUNT 256 10^3/uL (130-400); WHITE BLOOD COUNT 16.4 10^3/uL (4.3-11.0)
[2020-11-28 07:26] LABS: ALBUMIN 3.9 GM/DL (3.2-4.5); BILIRUBIN,TOTAL 0.7 MG/DL (0.1-1.0); CALCIUM 9.7 MG/DL (8.5-10.1); CREATININE SERUM 1.29 MG/DL (0.60-1.30); POTASSIUM 4.9 MMOL/L (3.6-5.0); TOTAL PROTEIN 7.6 GM/DL (6.4-8.2)
[2020-11-28 07:34] LABS: BAND NEUTROPHILS 1 %; BASOPHILS % (MANUAL) 0 %; EOSINOPHILS % (MANUAL) 0 %; LYMPHOCYTES % (MANUAL) 16 %; MONOCYTES % (MANUAL) 10 %; NEUTROPHILS % (MANUAL) 73 %; RBC MORPH NORMAL
[2020-11-28] MEDS: ENOXAPARIN 300 MG/3 ML (LOVENOX) MULTI-DOSE VIAL SQ SCH ×2 (09:42→19:23)
[2020-11-28] MEDS: FUROSEMIDE 40 MG (LASIX) TAB PO SCH (09:42)
[2020-11-28] MEDS: FAMOTIDINE 20 MG (PEPCID) TABLET PO SCH ×2 (09:42→19:23)
--- NOTE | 2020-11-28 12:19 | Progress Note - Hospitalist ---
Subjective HPI/CC On Admission Date Seen by Provider: Nov 28, 2020 Time Seen by Provider: 11:30 CC: Dyspnea HPI: This is a 75yoWF with h/o severe O2 dependent COPD who presented to the ER with increased dyspnea with hypoxia. Patient was dx with COVID. Protocol meds started and patient required IVF and biPAP in ER and is doing better now and trying to convert over to Vapotherm. Unable to speak due to biPAP. Subjective/Events-last exam Patient breathing better No pain Off Vapotherm Monitoring closely Getting a shower Review of Systems General: Fatigue, Malaise Pulmonary: Dyspnea, Cough Focused Exam Time of Focused Exam: 08:32 Objective Exam Vital Signs Vital Signs Date Time Temp Pulse Resp B/P (MAP) Pulse Ox O2 Delivery O2 Flow Rate FiO2 11/29/20 03:50 36.1 96 20 112/55 (74) 93 High Flow N/C 6.00 11/27/20 08:00 50 Capillary Refill : Less Than 3 Seconds General Appearance: No Apparent Distress, WD/WN, Anxious, Chronically ill Respiratory: No Accessory Muscle Use, No Respiratory Distress, Decreased Breath Sounds Cardiovascular: Regular Rate, Rhythm Neurologic/Psychiatric: Alert, Oriented x3, No Motor/Sensory Deficits, Normal Mood/Affect Results/Procedures Lab Laboratory Tests 11/28/20 06:39 Patient resulted labs reviewed. Assessment/Plan Assessment and Plan Assess & Plan/Chief Complaint Assessment: COVID-19 PNA Severe baseline COPD O2 dependence HTN Plan: ICU BiPAP 11/15/20: High risk for decompensation 11/16/20: Remain in ICU High risk for decompensation 11/17/20: Monitor closely Increased risk for intubation 11/23/20: Monitor lungs Vapotherm wean Monitor BP 11/24/20: Vapotherm Long recovery Wants to go home when able 11/27/20: PT OT IRF? O2 11/28/20: Monitoring O2 Wean PT OT Diagnosis/Problems Diagnosis/Problems (1) COVID-19 Status: Acute (2) Acute respiratory failure Status: Acute Qualifiers: Respiratory failure complication: hypoxia Qualified Codes: J96.01 - Acute respiratory failure with hypoxia Clinical Quality Measures DVT/VTE Risk/Contraindication: Risk Factor Score Per Nursin RFS Level Per Nursing on Admit: 4+=Very High STACIE TRACEY DO Nov 28, 2020 12:19
--- NOTE | 2020-11-28 12:28 | Occupational Ther Daily Note ---
OT Current Status-Daily Note Subjective Pt alert, sitting in recliner. Pt agrees to therapy. No c/o pain, just frustration over O2 levels. Mental Status/Objective Patient Orientation: Person, Place, Time, Situation ADL-Treatment Pt independent with toileting and transfers, per pt report. BSC is beside recliner so that pt has easy access due to constraints of O2 tubing. Pt stated that she has no difficulty with donning/doffing socks. Pt was given supplies for oral care and was able to open denture cleanser and cleanse dentures and mouth by self. Therapy Code Descriptions/Definitions Functional [place] Measure: 0=Not Assessed/NA 4=Minimal Assistance 1=Total Assistance 5=Supervision or Setup 2=Maximal Assistance 6=Modified [place] 3=Moderate Assistance 7=Complete IndependenceSCALE: Activities may be completed with or without assistive devices. 5-Zgywcifdlm-fkrilyq completes the activity by him/herself with no assistance from a helper. 5-Set-up or Clean-up Assistance-helper sets up or cleans up; patient completes activity. [place] assists only prior to or following the activity. 4-Supervision or Touching Assistance-helper provides verbal cues and/or touching/steadying and/or contact guard assistance as patient completes activity. Assistance may be provided throughout the activity or intermittently. 3-Partial/Moderate Assistance-helper does LESS THAN HALF the effort. [place] lifts, holds or supports trunk or limbs, but provides less than half the effort. 2-Substantial/Maximal Assistance-helper does MORE THAN HALF the effort. [place] lifts or holds trunk or limbs and provides more than half the effort. 5-Kpsapzlln-tachud does ALL the effort. Patient does none of the effort to complete the activity. Or, the assistance of 2 or more helpers is required for the patient to complete the activity. If activity was not attempted, code reason: 7-Patient Refused. 9-Not Applicable-not attempted and the patient did not perform the activity b efore the current illness, exacerbation or injury. 10-Not Attempted due to Environmental Limitations-(lack of equipment, weather restraints, etc.). 88-Not Attempted due to Medical Conditions or Safety Concerns. Oral Hygiene (QC): 6 On/Off Footwear: 6 (per pt report) Other Treatment Pt completed 2 sets 10 reps of 5 UE exercises against gravity to increase strength and activity tolerance. Skilled instruction for technique, positioning and breathing during exercise. Monitoring O2 levels, pt ranged from 80 to 94% while completing exercises. Pt required recovery breaks between each set. Educated pt on pursed lip breathing during exercises. After therapy, pt sitting in recliner with call light/phone in reach. All needs met in room. OT Process Cheese Cooker Goals Alf Goals Time Frame: Dec 06, 2020 Eating (QC): 6 Oral Hygiene (QC): 6 Toileting Hygiene (QC): 6 Shower/Bathe Self (QC): 6 Upper Body Dressing (QC): 6 Lower Body Dressing (QC): 6 On/Off Footwear (QC): 6 Additional Goals: 1-Demonstrate ADL Tasks, 2-Verbalize Understanding, 3- ImproveStrength/Afshin 1=Demonstrate adherence to instructed precautions during ADL tasks. 2=Patient will verbalize/demonstrate understanding of assistive devices/modifications for ADL. 3=Patient will improve strength/tolerance for activity to enable patient to perform ADL's. OT Education/Plan Problem List/Assessment Assessment: Decreased Activ Tolerance, Decreased UE Strength Pt would benefit from short term skilled OT in order to increase functional strength and endurance to maximize LOF for safe return home. Discharge Recommendations Plan/Recommendations: Continue POC Treatment Plan/Plan of Care Patient would benefit from OT for education, treatment and training to promote independence in ADL's, mobility, safety and/or upper extremity function for ADL's. Plan of Care: ADL Retraining, Functional Mobility, UE Funct Exercise/Act Treatment Duration: Dec 06, 2020 Frequency: 5 times per week Estimated Hrs Per Day: .25 hour per day Agreement: Yes Rehab Potential: Fair Time/GCodes Start Time: 10:50 Stop Time: 11:08 Total Time Billed (hr/min): 18 Billed Treatment Time 1 visit-FA 1 (18 min) DANYEL TSAI Nov 28, 2020 12:28
[2020-11-28] MEDS: ACETAMINOPHEN 500 MG TAB (TYLENOL) PO PRN (12:53)
--- NOTE | 2020-11-28 14:03 | Physical Therapy Daily Note ---
PT Daily Note-Current Subjective Patient in recliner pre tx, agrees to PT, has no complaints of pain Appearance Patient in recliner post tx with nurse call, phone, tray, all needs met. Mental Status Patient Orientation: Person, Place, Situation Attachments: Oxygen, IV Transfers SCALE: Activities may be completed with or without assistive devices. 7-Qzeaadynio-iuzfwzj completes the activity by him/herself with no assistance from a helper. 5-Set-up or Clean-up Assistance-helper sets up or cleans up; patient completes activity. [place] assists only prior to or following the activity. 4-Supervision or Touching Assistance-helper provides verbal cues and/or touching/steadying and/or contact guard assistance as patient completes activity. Assistance may be provided throughout the activity or intermittently. 3-Partial/Moderate Assistance-helper does LESS THAN HALF the effort. [place] lifts, holds or supports trunk or limbs, but provides less than half the effort. 2-Substantial/Maximal Assistance-helper does MORE THAN HALF the effort. [place] lifts or holds trunk or limbs and provides more than half the effort. 6-Anfwvkfro-ubapxq does ALL the effort. Patient does none of the effort to complete the activity. Or, the assistance of 2 or more helpers is required for the patient to complete the activity. If activity was not attempted, code reason: 7-Patient Refused. 9-Not Applicable-not attempted and the patient did not perform the activity before the current illness, exacerbation or injury. 10-Not Attempted due to Environmental Limitations-(lack of equipment, weather restraints, etc.). 88-Not Attempted due to Medical Conditions or Safety Concerns. Sit to Stand (QC): 4 Chair/Pvc-aw-Flkrw Xfer(QC): 4 Gait Training Distance: 80' Walk 10 feet (QC): 4 Walk 50 ft with 2 Turns(QC): 4 Gait Persons Needed: 1 Gait Assistive Device: None SBA, slow but steady ambulation Exercises Seated Therapy Exercises: Ankle pumps, Long arc quads Seated Reps: 20 Treatments ambulation, LE exercise Assessment Current Status: Fair Progress improving endurance PT Mcc Goals Mcc Goals PT Mcc Goals Time Frame: Dec 04, 2020 Roll Left & Right (QC): 6 Sit to Lying (QC): 6 Lying-Sitting on Side/Bed(QC): 6 Sit to Stand (QC): 6 Chair/Rzo-il-Rshws Xfer(QC): 6 Walk 10 feet (QC): 6 Walk 50ft with 2 Turns (QC): 6 Walk 150 ft (QC): 6 PT Plan Problem List Problem List: Activity Tolerance, Functional Strength, Safety, Balance, Gait, Transfer Treatment/Plan Treatment Plan: Continue Plan of Care Treatment Plan: Education, Functional Activity Afshin, Functional Strength, Gait, Safety, Therapeutic Exercise, Transfers Treatment Duration: Dec 04, 2020 Frequency: 6 times per week Estimated Hrs Per Day: .25 hour per day Patient and/or Family Agrees t: Yes Safety Risks/Education Patient Education: Gait Training, Transfer Techniques, Correct Positioning, Safety Issues Teaching Recipient: Patient Teaching Methods: Demonstration, Discussion Response to Teaching: Reinforcement Needed Time/GCodes Time In: 1307 Time Out: 1316 Total Billed Treatment Time: 9 Total Billed Treatment 1 visit GT 9' NATALIA LUTZ PT Nov 28, 2020 14:03
--- NOTE | 2020-11-28 19:55 | Discharge Inst-Simple/Standard ---
Discharge Inst-Standard Patient Instructions/Follow Up Plan of Care/Instructions/FU: Please continue to take your medications. Please follow up with your primary care doctor to follow up this hospital stay. Activity as Tolerated: Yes Discharge Diet: No Restrictions Return to The Hospital For: Chest pain, shortness of breath, fever, low oxygen saturations, if you feel you are getting worse. BENNY FORD MD Nov 28, 2020 19:55
[2020-11-28] MEDS ORDERED: APIX5TAB PO (19:56)
[2020-11-28] MEDS ORDERED: Guaifenesin/Codeine PO (19:56)
[2020-11-29] MEDS: RT-ALBUTEROL INHALER HFA (VENTOLIN HFA) 18 GM IH SCH ×3 (02:25→11:36)
[2020-11-29 06:24] LABS: BASOPHILS # (AUTO) 0.1 10^3/uL (0.0-0.1); BASOPHILS % (AUTO) 1 % (0-10); EOSINOPHILS # (AUTO) 0.2 10^3/uL (0.0-0.3); EOSINOPHILS % (AUTO) 1 % (0-10); HEMATOCRIT 47 % (35-52); HEMOGLOBIN 14.7 g/dL (11.5-16.0); LYMPHOCYTES # (AUTO) 2.5 10^3/uL (1.0-4.0); LYMPHOCYTES % (AUTO) 19 % (12-44); MEAN CORPUSCULAR HEMOGLOBIN 27 pg (25-34); MEAN CORPUSCULAR HGB CONC 31 g/dL (32-36); MEAN CORPUSCULAR VOLUME 85 fL (80-99); MEAN PLATELET VOLUME 11.1 fL (9.0-12.2); MONOCYTES # (AUTO) 0.8 10^3/uL (0.0-1.0); MONOCYTES % (AUTO) 6 % (0-12); NEUTROPHILS # (AUTO) 9.2 10^3/uL (1.8-7.8); NEUTROPHILS % (AUTO) 70 % (42-75); PLATELET COUNT 264 10^3/uL (130-400); WHITE BLOOD COUNT 13.1 10^3/uL (4.3-11.0)
[2020-11-29 06:49] LABS: ALBUMIN 4.1 GM/DL (3.2-4.5); BILIRUBIN,TOTAL 0.7 MG/DL (0.1-1.0); CALCIUM 11.1 MG/DL (8.5-10.1); CREATININE SERUM 1.31 MG/DL (0.60-1.30); POTASSIUM 4.8 MMOL/L (3.6-5.0); TOTAL PROTEIN 7.8 GM/DL (6.4-8.2)
[2020-11-29 08:10] VITALS: BP 114/82
[2020-11-29] MEDS ORDERED: DOCUSATE SODIUM 100 MG (COLACE) CAP PO ONE (09:10)
[2020-11-29] MEDS ORDERED: DOCUSATE SODIUM 100 MG (COLACE) CAP PO PRN (09:15)
[2020-11-29] MEDS: FAMOTIDINE 20 MG (PEPCID) TABLET PO SCH (09:15)
[2020-11-29] MEDS: ENOXAPARIN 300 MG/3 ML (LOVENOX) MULTI-DOSE VIAL SQ SCH (09:15)
[2020-11-29] MEDS: FUROSEMIDE 40 MG (LASIX) TAB PO SCH (09:15)
--- NOTE | 2020-11-29 10:54 | Physical Therapy Daily Note ---
PT Daily Note-Current Subjective Patient in recliner pre tx, agrees to PT, has no complaints of pain. Appearance Patient in recliner post tx with nurse call, phone, tray, all needs met. Mental Status Patient Orientation: Person, Place, Situation Attachments: Oxygen Transfers SCALE: Activities may be completed with or without assistive devices. 6-Jxxnxptoee-rarakix completes the activity by him/herself with no assistance from a helper. 5-Set-up or Clean-up Assistance-helper sets up or cleans up; patient completes activity. [place] assists only prior to or following the activity. 4-Supervision or Touching Assistance-helper provides verbal cues and/or touching/steadying and/or contact guard assistance as patient completes activity. Assistance may be provided throughout the activity or intermittently. 3-Partial/Moderate Assistance-helper does LESS THAN HALF the effort. [place] lifts, holds or supports trunk or limbs, but provides less than half the effort. 2-Substantial/Maximal Assistance-helper does MORE THAN HALF the effort. [place] lifts or holds trunk or limbs and provides more than half the effort. 9-Rdwgiwvaj-sdbczr does ALL the effort. Patient does none of the effort to complete the activity. Or, the assistance of 2 or more helpers is required for the patient to complete the activity. If activity was not attempted, code reason: 7-Patient Refused. 9-Not Applicable-not attempted and the patient did not perform the activity before the current illness, exacerbation or injury. 10-Not Attempted due to Environmental Limitations-(lack of equipment, weather restraints, etc.). 88-Not Attempted due to Medical Conditions or Safety Concerns. Sit to Stand (QC): 6 Chair/Uje-ep-Nixnp Xfer(QC): 6 Gait Training Distance: 60' Walk 10 feet (QC): 4 Walk 50 ft with 2 Turns(QC): 4 Gait Assistive Device: FWW SBA, patient ambulates approx 60' in her room, O2 drops to 88% but comes back to 91% after about 15 seconds and purse lip breathing, no unsteadiness with ambulation Exercises Seated Therapy Exercises: Ankle pumps, Long arc quads Seated Reps: 20 Treatments ambulation, LE exercise Assessment Current Status: Fair Progress good ambulation but O2 drops with activity PT Thermo Cementing Folder Operator Goals Thermo Cementing Folder Operator Goals PT Thermo Cementing Folder Operator Goals Time Frame: Dec 04, 2020 Roll Left & Right (QC): 6 Sit to Lying (QC): 6 Lying-Sitting on Side/Bed(QC): 6 Sit to Stand (QC): 6 Chair/Qey-um-Tzifc Xfer(QC): 6 Walk 10 feet (QC): 6 Walk 50ft with 2 Turns (QC): 6 Walk 150 ft (QC): 6 PT Plan Problem List Problem List: Activity Tolerance, Functional Strength, Safety, Balance, Gait, Transfer Treatment/Plan Treatment Plan: Continue Plan of Care Treatment Plan: Education, Functional Activity Afshin, Functional Strength, Gait, Safety, Therapeutic Exercise, Transfers Treatment Duration: Dec 04, 2020 Frequency: 6 times per week Estimated Hrs Per Day: .25 hour per day Patient and/or Family Agrees t: Yes Safety Risks/Education Patient Education: Gait Training, Transfer Techniques, Correct Positioning, Safety Issues Teaching Recipient: Patient Teaching Methods: Demonstration, Discussion Response to Teaching: Reinforcement Needed Time/GCodes Time In: 1030 Time Out: 1040 Total Billed Treatment Time: 10 Total Billed Treatment 1 visit GT 10' NATALIA LUTZ PT Nov 29, 2020 10:54
--- NOTE | 2020-11-29 11:09 | Occupational Ther Daily Note ---
OT Current Status-Daily Note Subjective Pt alert, sitting in recliner. Pt agrees to therapy. No c/o pain. Pt states that she may leave today, just waiting on doctor. ADL-Treatment Therapy Code Descriptions/Definitions Functional [place] Measure: 0=Not Assessed/NA 4=Minimal Assistance 1=Total Assistance 5=Supervision or Setup 2=Maximal Assistance 6=Modified [place] 3=Moderate Assistance 7=Complete IndependenceSCALE: Activities may be completed with or without assistive devices. 9-Ieojcotrxn-yzbbeyy completes the activity by him/herself with no assistance from a helper. 5-Set-up or Clean-up Assistance-helper sets up or cleans up; patient completes activity. [place] assists only prior to or following the activity. 4-Supervision or Touching Assistance-helper provides verbal cues and/or touching/steadying and/or contact guard assistance as patient completes activity. Assistance may be provided throughout the activity or intermittently. 3-Partial/Moderate Assistance-helper does LESS THAN HALF the effort. [place] lifts, holds or supports trunk or limbs, but provides less than half the effort. 2-Substantial/Maximal Assistance-helper does MORE THAN HALF the effort. [place] lifts or holds trunk or limbs and provides more than half the effort. 5-Plurrgeud-vznpux does ALL the effort. Patient does none of the effort to complete the activity. Or, the assistance of 2 or more helpers is required for the patient to complete the activity. If activity was not attempted, code reason: 7-Patient Refused. 9-Not Applicable-not attempted and the patient did not perform the activity before the current illness, exacerbation or injury. 10-Not Attempted due to Environmental Limitations-(lack of equipment, weather restraints, etc.). 88-Not Attempted due to Medical Conditions or Safety Concerns. Other Treatment Pt given light resistance theraband for B UE exercises. Pt was able to to demonstrate 4 B UE exercises, with minimal skilled instructions. Educated on breathing techniques during exercises to keep O2 levels above 90%. Pt ranged between 88% to 94%. After therapy, pt sitting in recliner with call light/phone in reach. All needs met in room. Education OT Patient Education: Exercise program Teaching Recipient: Patient Teaching Methods: Demonstration Response to Teaching: Verbalize Understanding, Return Demonstration OT Wind Tunnel Technician Goals Wind Tunnel Technician Goals Time Frame: Dec 06, 2020 Eating (QC): 6 Oral Hygiene (QC): 6 Toileting Hygiene (QC): 6 Shower/Bathe Self (QC): 6 Upper Body Dressing (QC): 6 Lower Body Dressing (QC): 6 On/Off Footwear (QC): 6 Additional Goals: 1-Demonstrate ADL Tasks, 2-Verbalize Understanding, 3- ImproveStrength/Afshin 1=Demonstrate adherence to instructed precautions during ADL tasks. 2=Patient will verbalize/demonstrate understanding of assistive devices/modifications for ADL. 3=Patient will improve strength/tolerance for activity to enable patient to perform ADL's. OT Education/Plan Problem List/Assessment Assessment: Decreased Activ Tolerance, Decreased UE Strength Pt would benefit from short term skilled OT in order to increase functional strength and endurance to maximize LOF for safe return home. Discharge Recommendations Plan/Recommendations: Continue POC Treatment Plan/Plan of Care Patient would benefit from OT for education, treatment and training to promote independence in ADL's, mobility, safety and/or upper extremity function for ADL's. Plan of Care: ADL Retraining, Functional Mobility, UE Funct Exercise/Act Treatment Duration: Dec 06, 2020 Frequency: 5 times per week Estimated Hrs Per Day: .25 hour per day Agreement: Yes Rehab Potential: Fair Time/GCodes Start Time: 10:20 Stop Time: 10:30 Total Time Billed (hr/min): 10 Billed Treatment Time 1 visit-EX 1 (10 min) DANYEL TSAI Nov 29, 2020 11:09
[2020-11-29 11:25] VITALS: BP 96/59
[2020-11-29] MEDS ORDERED: ALBU18HF2 IH (12:02)
[2020-11-29] MEDS ORDERED: SODI0.5GEL TOP (12:02)
[2020-11-29] MEDS ORDERED: FURO40TA4 PO (12:02)
[2020-11-29] MEDS ORDERED: APIX5TAB PO (12:02)
--- NOTE | 2020-11-29 12:06 | Discharge Summary ---
Discharge Summary Hospital Course Was the Problem List Reviewed?: Yes Problems/Dx: (1) COVID-19 Status: Acute (2) Acute respiratory failure Status: Acute Qualifiers: Qualified Codes: J96.01 - Acute respiratory failure with hypoxia Hospital Course Date of Admission: Nov 14, 2020 at 07:50 Admission Diagnosis : Family Physician/Provider: Kayleigh Arndt Date of Discharge: 11/29/20 Discharge Diagnosis: Acute hypoxic respiratory failure, COVID-19, AECOPD Hospital Course: Lengthy course after dx with COVID with acute on chronic resp failure requiring biPAP and Vapotherm and ICU stay. Patient ultimately and slowly improved and was able to be weaned down to 2L/min of cont O2 and was deemed stable for DC> Labs and Pending Lab Test: Laboratory Tests 11/29/20 06:06: White Blood Count 13.1H, Red Blood Count 5.50H, Hemoglobin 14.7, Hematocrit 47, Mean Corpuscular Volume 85, Mean Corpuscular Hemoglobin 27, Mean Corpuscular Hemoglobin Concent 31L, Red Cell Distribution Width 15.9H, Platelet Count 264, Mean Platelet Volume 11.1, Immature Granulocyte % (Auto) 3, Neutrophils (%) (Auto) 70, Lymphocytes (%) (Auto) 19, Monocytes (%) (Auto) 6, Eosinophils (%) (Auto) 1, Basophils (%) (Auto) 1, Neutrophils # (Auto) 9.2H, Lymphocytes # (Auto) 2.5, Monocytes # (Auto) 0.8, Eosinophils # (Auto) 0.2, Basophils # (Auto) 0.1, Immature Granulocyte # (Auto) 0.3H, Sodium Level 137, Potassium Level 4.8, Chloride Level 97L, Carbon Dioxide Level 22, Anion Gap 18H, Blood Urea Nitrogen 53H, Creatinine 1.31H, Estimat Glomerular Filtration Rate 40, BUN/Creatinine Ratio 40, Glucose Level 153H, Calcium Level 11.1H, Corrected Calcium 11.0H, Total Bilirubin 0.7, Aspartate Amino Transf (AST/SGOT) 19, Alanine Aminotransferase (ALT/SGPT) 39, Alkaline Phosphatase 82, Total Protein 7.8, Albumin 4.1 Microbiology 11/20/20 Blood Culture - Final, Complete No growth 11/14/20 MRSA Screen - Final, Complete MRSA not isolated 11/14/20 Urine Culture - Final, Complete NO GROWTH Home Meds Active Eliquis (Apixaban) 5 Mg Tablet 5 Mg PO BID [place] Saline Nasal Gel (Sodium Chloride/Aloe Vera) 14.1 Gm Gel..gram. 0 Oz TOP NEEDED PRN Furosemide 40 Mg Tablet 40 Mg PO DAILY Ventolin Hfa (Albuterol Sulfate) 18 Gm Hfa.aer.ad 0 Gm IH RTQ4HR Reported Hydrocodone-Acetamin 5-325 mg (Hydrocodone/Acetaminophen) 1 Each Tablet 1 Each PO Q8H PRN Lisinopril 5 Mg Tablet 5 Mg PO DAILY Singulair (Montelukast Sodium) 10 Mg Tablet 10 Mg PO HS Omeprazole 20 Mg Capsule.dr 20 Mg PO DAILY Breo Ellipta 100-25 Mcg INH (Fluticasone/Vilanterol) 1 Each Blst.w.dev 1 Puff IH DAILY Incruse Ellipta (Umeclidinium [place]) 62.5 Mcg Blst.w.dev 1 Puff IH DAILY Assessment/Pt Instructions [facility] 1 week Discharge Planning: <30 minutes discharge planning Discharge Instructions Discharge Diet: No Restrictions Activity as Tolerated: Yes Discharge Physical Examination Vital Signs Vital Signs Date Time Temp Pulse Resp B/P (MAP) Pulse Ox O2 Delivery O2 Flow Rate FiO2 11/29/20 11:39 90 High Flow N/C 2.00 11/29/20 11:25 36.4 95 22 96/59 (71) 11/27/20 08:00 50 General Appearance: No Apparent Distress, WD/WN Respiratory: Chest Non Tender, Lungs Clear, Normal Breath Sounds, No Accessory Muscle Use, No Respiratory Distress Cardiovascular: Regular Rate, Rhythm, No Edema, No Gallop, No JVD, No Murmur, Normal Peripheral Pulses Neurologic/Psychiatric: Alert, Oriented x3, No Motor/Sensory Deficits, Normal Mood/Affect Allergies: Coded Allergies: Penicillins (Unverified Allergy, Mild, HIVES, 05/30/19) fluticasone (Verified Allergy, Mild, HIVES, 05/30/19) salmeterol (Verified Allergy, Mild, HIVES, 05/30/19) Discharge Summary Date of Admission Nov 14, 2020 at 07:50 Date of Discharge Discharge Date: Nov 29, 2020 Admission Diagnosis Assessment: COVID-19 PNA Severe baseline COPD O2 dependence HTN Plan: ICU BiPAP Discharge Diagnosis Assessment: COVID-19 PNA Severe baseline COPD O2 dependence HTN Plan: ICU BiPAP 11/15/20: High risk for decompensation 11/16/20: Remain in ICU High risk for decompensation 11/17/20: Monitor closely Increased risk for intubation 11/23/20: Monitor lungs Vapotherm wean Monitor BP 11/24/20: Vapotherm Long recovery Wants to go home when able 11/27/20: PT OT IRF? O2 11/28/20: Monitoring O2 Wean PT OT (1) COVID-19 Status: Acute (2) Acute respiratory failure Status: Acute Qualifiers: Qualified Codes: J96.01 - Acute respiratory failure with hypoxia Clinical Quality Measures DVT/VTE Risk/Contraindication: Risk Factor Score Per Nursin RFS Level Per Nursing on Admit: 4+=Very High STACIE TRACEY DO Nov 29, 2020 12:06
--- NOTE | 2020-11-29 12:06 | NUR ---
PT WAS PLACED ON ROOM AIR FOR 2 MINUTES. PT 02 DESATURATED TO 88%. PT WAS THEN PLACED ON 2L NC. PT 02 SATURATION CAME UP TO 91. PT WILL REQUIRE 2L AT ALL TIMES. Addendum: 11/29/20 at 1207 by ROXANE JOEL RT Amended: Links added.
--- NOTE | 2020-11-29 12:24 | NUR ---
CM/SS finalized discharge. Plan: Patient will return home self care with a new oxygen need. DME: The patient reports that she wears oxygen at home and already is set up with [facility]. She has a concentrator but does not have a portable tank. CM/SS contacted [facility] to inform them of patient's discharge need for a portable tank. CM/SS faxed face sheet, insurance, home o2 study, script, and h&p. CM/SS updated the patient's nurse. The patient reports that she lives at home with her son. She reports that he will assist with her care if she needs anything at home. The patient verbalized she feels good with discharging and safe to return home. She denied any further questions at this time.
[2020-11-30] MEDS ORDERED: FAMOTIDINE 20 MG (PEPCID) TABLET PO SCH (09:00)
== END 2020-11-29 14:00 | disposition home or self-care (01) | DRG 177 ==
LOC: EDUNIT# 06:38 → ER 06:39 → EDLOC 07:50 → ICU 07:50 → CSD 11-20 17:07 → 4TH 11-26 10:15
PROVIDERS: ADMIT Internal Medicine; ATTEND Family Medicine
PROC: XW13325 Transfusion of Convalescent Plasma (Nonautologous) into Peripheral Vein, Percutaneous Approach, New Technology Group 5 (ICD-10-PCS; principal; 2020-11-14)
PROC: XW033E5 Introduction of Remdesivir Anti-infective into Peripheral Vein, Percutaneous Approach, New Technology Group 5 (ICD-10-PCS; 2020-11-14)
PROC: 5A09357 Assistance with Respiratory Ventilation, Less than 24 Consecutive Hours, Continuous Positive Airway Pressure (ICD-10-PCS; 2020-11-14)
DX: U07.1 COVID-19 (principal); J12.82 Pneumonia due to coronavirus disease 2019; J96.21 Acute and chronic respiratory failure with hypoxia; I26.99 Other pulmonary embolism without acute cor pulmonale; E87.2 Acidosis; J43.9 Emphysema, unspecified; K21.9 Gastro-esophageal reflux disease without esophagitis; M19.90 Unspecified osteoarthritis, unspecified site; G89.29 Other chronic pain; M54.9 Dorsalgia, unspecified; I10 Essential (primary) hypertension; Z88.0 Allergy status to penicillin; Z87.891 Personal history of nicotine dependence; Z99.81 Dependence on supplemental oxygen
CPT/HCPCS: 36415; 36569; 51702; 71045; 76937; 80048; 80053; 80202; 81000; 82805; 83605; 83735; 83880; 84100; 84145; 85007; 85025; 85027; 85379; 85610; 85730; 86141; 86900; 86901; 87040; 87081; 87088; 87635; 87804; 93306; 94640; 94660; 94664; 94760; 94761; 96361; 96372; 96374; 96375; 99291

== ENCOUNTER → 2021-02-03 | Outpatient (CLI) | payer MEDICARE ==
[~2021-02-03] MED LIST changes: +ALBU18HF2 IH; +APIX5TAB PO; +BUPR150T24; -BUPR150T7; +CATHETER FLUSH 10 ML SYR IV PRN; +FURO40TA4 PO; +Guaifenesin/Codeine PO; +HOLD METFORMIN - RECEIVED CONTRAST 20 ML VIAL IV SCH; +IOHEXOL 350 MG/ML 100 ML (OMNIPAQUE 350) VIAL IV ONE; -LISI-556; -LISI-556 PO; +LISI-729; +LISI-729 PO; +NS 100 ML (IVPB) BAG IV ONE; +SODI0.5GEL TOP
[2021-02-03 16:46] LABS: BUN/CREATININE RATIO 20; CREATININE SERUM 0.79 MG/DL (0.60-1.30); GFR ESTIMATED > 60
--- NOTE | 2021-02-03 18:07 | Diagnostic Imaging Report ---
PROCEDURE: CT angiography of the chest with contrast. TECHNIQUE: Multiple contiguous axial images were obtained through the chest after uneventful bolus administration of intravenous contrast. 3D reconstructed CTA MIP acquisitions were also performed. Auto Exposure Controls were utilized during the CT exam to meet ALARA standards for radiation dose reduction. INDICATION: Follow-up pulmonary emboli. COMPARISON STUDY: CT chest with contrast from [address] from April 26. FINDINGS: No pulmonary emboli, aortic dissection, or aneurysm is present. Left pulmonary artery measures 2.9 cm. Heart size is mildly enlarged. No pleural or pericardial effusions are present. No abnormal lymph nodes are present. Visualized portions of the abdomen demonstrate a moderate hiatal hernia. Gallbladder is absent. Centrilobular emphysematous changes are present. There is some subpleural fibrosis. No pulmonary nodules or focal infiltrates are present. IMPRESSION: 1. There are no pulmonary emboli. 2. Pulmonary arteries are borderline enlarged, possibles pulmonary hypertension. Heart is mildly enlarged. 3. Centrilobular emphysematous changes are present with some subpleural fibrosis. Dictated by: Dictated on workstation # [id number]
== END ==
LOC: RAD 15:33
PROVIDERS: ATTEND Nurse Practitioner Family
DX: Z03.89 Encounter for observation for other suspected diseases and conditions ruled out (principal); J43.2 Centrilobular emphysema; J94.1 Fibrothorax; M79.609 Pain in unspecified limb; M79.89 Other specified soft tissue disorders
CPT/HCPCS: 36415; 71275; 82565; 84520

== ENCOUNTER → 2022-05-05 | Outpatient (CLI) | payer MEDICARE ==
[~2022-05-05] MED LIST changes: -CATHETER FLUSH 10 ML SYR IV PRN; -DOXY100C2 PO; +DOXY100C5 PO; -HOLD METFORMIN - RECEIVED CONTRAST 20 ML VIAL IV SCH; -IOHEXOL 350 MG/ML 100 ML (OMNIPAQUE 350) VIAL IV ONE; -LISI-729; -LISI-729 PO; +LISI5TAB20; +LISI5TAB20 PO; -NS 100 ML (IVPB) BAG IV ONE; +RT-ALBUTEROL SULF 2.5 MG/3 ML PRE-MIX VIAL INH ONE
== END ==
LOC: RT 10:14
PROVIDERS: ATTEND Nurse Practitioner Family
DX: J44.9 Chronic obstructive pulmonary disease, unspecified (principal)
CPT/HCPCS: 94060; 94726; 94729